=== PATIENT | female | born 1935 | race American Indian/Alaskan Native ===

== ENCOUNTER 2017-07-31 17:15 | Emergency (ER) | payer OTHER, MEDICARE ==
[~2017-07-31] VITALS: Ht 152.4 cm; Wt 81.7 kg
[~2017-07-31 17:15] MED LIST: ALLEGRA ALLERG180 MG PO; AMLODIPINE BESYL5 MG PO; ASPIRIN EC81 MG PO; COZAAR25 MG PO; FLOVENT DISKUS50 MCG INH; GLIPIZIDE XL10 MG PO; LIPITOR10 MG PO; LORATADINE10 MG PO; METFORMIN HCL500 MG PO; METOPROLOL SUCC25 MG PO; NITROGLYCERIN0.4 MG SL; ONGLYZA5 MG PO; ZETIA10 MG PO
[2017-07-31] MEDS ORDERED: NORCO 5-325 TA1 EACH PO (20:27)
== END 2017-07-31 20:52 | disposition home or self-care (01) ==
LOC: ED 17:15
DX: S20.211A Contusion of right front wall of thorax, initial encounter (principal); I10 Essential (primary) hypertension; E78.00 Pure hypercholesterolemia, unspecified; J45.909 Unspecified asthma, uncomplicated; E11.9 Type 2 diabetes mellitus without complications; Z87.891 Personal history of nicotine dependence; Z88.0 Allergy status to penicillin; Z88.1 Allergy status to other antibiotic agents; Z88.8 Allergy status to other drugs, medicaments and biological substances; Z79.899 Other long term (current) drug therapy; Z79.82 Long term (current) use of aspirin; Z79.84 Long term (current) use of oral hypoglycemic drugs; V43.52XA Car driver injured in collision with other type car in traffic accident, initial encounter
CPT/HCPCS: 71046; 99283

== ENCOUNTER 2019-02-27 14:11 | Emergency (ER) | payer MEDICARE, OTHER ==
[~2019-02-27] VITALS: Ht 152.4 cm; Wt 74.8 kg
[~2019-02-27 14:11] MED LIST changes: +NORCO 5-325 TA1 EACH PO
--- NOTE | 2019-02-28 12:39 | EKG ---
[facility] [address] [facility] [place], [place] [address] Signed Atrial fibrillation Left axis deviation Left ventricular hypertrophy with QRS widening Possible Lateral infarct , age undetermined Abnormal ECG No previous ECGs available Confirmed by CHER COPELAND MD ([id number]) on 02/28/2019 12:39:30 PM Electronically Signed By: CHER COPELAND MD 02/28/19 1239 PATIENT NAME: KIMBERLEE CARABALLO Electrocardiogram DATE OF : 39 PHYSICIAN: CHER COPELAND MD REPORT #: [id number] REPORT IS CONFIDENTIAL AND NOT TO BE RELEASED WITHOUT AUTHORIZATION
== END 2019-02-27 17:55 | disposition home or self-care (01) ==
LOC: ED 14:11 → EDBD 14:12 → ED 17:55
DX: R53.1 Weakness (principal); E11.9 Type 2 diabetes mellitus without complications; I25.2 Old myocardial infarction; Z87.891 Personal history of nicotine dependence; I10 Essential (primary) hypertension; Z95.5 Presence of coronary angioplasty implant and graft; Z88.0 Allergy status to penicillin; Z88.1 Allergy status to other antibiotic agents; Z88.8 Allergy status to other drugs, medicaments and biological substances; Z79.899 Other long term (current) drug therapy; Z79.84 Long term (current) use of oral hypoglycemic drugs; Z79.82 Long term (current) use of aspirin
CPT/HCPCS: 80053; 81001; 83690; 83735; 84484; 85025; 87088; 93005; 93010; 99285-25

== ENCOUNTER 2019-11-15 18:12 | Inpatient (IN) | payer MEDICARE, OTHER ==
[~2019-11-15] VITALS: Ht 152.4 cm; Wt 65.7 kg
--- OUTSIDE RECORDS SUMMARY | ~2019-11-15 | XMS | Clinical Summary ---
Demographics + + + | Address | [address] [place] [address] road | | | [place] [address] | + + + | Home Phone | | + + + | Preferred Language | Unknown | + + + | Marital Status | Single | + + + | Christianity Affiliation | Unknown | + + + | Race | Unknown | + + + | Ethnic Group | Unknown | + + + Author + + + | Author | [facility] (Historical as of | | | 01-31-19) | + + + | Organization | [facility] (Historical as of | | | 01-31-19) | + + + | Address | Unknown | + + + | Phone | Unavailable | + + + Support + + +---------+ + | Name | Relationship | Address | Phone | + + +---------+ + | Mitul Le | ECON | Unknown | | + + +---------+ + | Lopez Cueto | ECON | Unknown | | + + +---------+ + | Magdiel Cueto | ECON | Unknown | | + + +---------+ + Care Team Providers + +------+ + | Care Audio Visual Specialist Name | Role | Phone | + +------+ + | Eva An MD | PP | | + +------+ + Allergies + + + + + + | Active Allergy | Reactions | Severity | Noted | Comments | | | | | Date | | + + + + + + | Amoxicillin | Other (See Comments) | Medium | 09/25/19 | Pt states "I dont | | | | | 15 | know" | + + + + + + | Azithromycin | Other (See Comments) | Medium | 09/25/19 | Pt states "I dont | | | | | 15 | know" | + + + + + + | Clavulanic Acid | Other (See Comments) | Medium | 09/25/19 | Pt states "I dont | | | | | 15 | know" | + + + + + + | Clindamycin | Other (See Comments) | Medium | 09/25/19 | Pt states "I dont | | | | | 15 | know" | + + + + + + | Penicillins | Other (See Comments) | Medium | 09/25/19 | Pt states "I dont | | | | | 15 | know" | + + + + + + Current Medications + + +--------+---------+------+------+-------+ | Prescription | Sig. | Disp. | Refills | Star | End | Statu | | | | | | t | Date | s | | | | | | Date | | | + + +--------+---------+------+------+-------+ | metFORMIN | Take 500 mg by mouth | | | | | Activ | | (GLUCOPHAGE) 500 MG | 2 (two) times daily | | | | | e | | tablet | with meals. | | | | | | + + +--------+---------+------+------+-------+ | fluticasone | Inhale 1 puff into | | | | | Activ | | (FLOVENT DISKUS) 50 | the lungs 2 (two) | | | | | e | | MCG/BLIST diskus | times daily. | | | | | | | inhaler | | | | | | | + + +--------+---------+------+------+-------+ | saxagliptin | Take 5 mg by mouth | | | | | Activ | | (ONGLYZA) 5 MG | daily. | | | | | e | | tablet | | | | | | | + + +--------+---------+------+------+-------+ | glipiZIDE | Take 10 mg by mouth | | | | | Activ | | (GLUCOTROL) 10 MG 24 | daily. | | | | | e | | hr tablet | | | | | | | + + +--------+---------+------+------+-------+ | atorvastatin | Take 1 tablet by | 30 | 0 | 04/1 | | Activ | | (LIPITOR) 40 MG | mouth nightly. | tablet | | 7/20 | | e | | tablet | | | | 15 | | | + + +--------+---------+------+------+-------+ | clopidogrel | Take 1 tablet by | 30 | 0 | 04/1 | | Activ | | (PLAVIX) 75 MG | mouth daily. | tablet | | 7/20 | | e | | tablet | | | | 15 | | | + + +--------+---------+------+------+-------+ | furosemide (LASIX) | Take 1 tablet by | 30 | 0 | 04/1 | | Activ | | 40 MG tablet | mouth daily. | tablet | | 7/20 | | e | | | | | | 15 | | | + + +--------+---------+------+------+-------+ | metoprolol | Take 1 tablet by | 30 | 0 | 04/1 | | Activ | | (TOPROL-XL) 100 MG | mouth daily. | tablet | | 7/20 | | e | | 24 hr tablet | | | | 15 | | | + + +--------+---------+------+------+-------+ | nitroGLYCERIN | Place 1 tablet under | 90 | 0 | 04/1 | | Activ | | (NITROSTAT) 0.4 MG | the tongue every 5 | tablet | | 7/20 | | e | | SL tablet | (five) minutes as | | | 15 | | | | | needed for Chest | | | | | | | | pain. | | | | | | + + +--------+---------+------+------+-------+ | potassium chloride | Take 1 tablet by | 30 | 0 | 04/1 | | Activ | | (K-DUR,KLOR-CON) 20 | mouth daily. | tablet | | 7/20 | | e | | MEQ tablet | | | | 15 | | | + + +--------+---------+------+------+-------+ | warfarin | Take 1 tablet by | 30 | 0 | 04/1 | | Activ | | (COUMADIN) 1 MG | mouth daily. | tablet | | 7/20 | | e | | tablet | | | | 15 | | | + + +--------+---------+------+------+-------+ | losartan (COZAAR) | Take 1 tablet by | 90 | 3 | 04 | | Activ | | 100 MG tablet | mouth daily. | tablet | | 10/04 | | e | | | | | | 15 | | | + + +--------+---------+------+------+-------+ | aspirin 81 MG EC | Take 1 tablet by | 90 | 3 | 10/15 | | Activ | | tablet | mouth daily with | tablet | | 02/03 | | e | | | breakfast. | | | 15 | | | + + +--------+---------+------+------+-------+ Active Problems + + + | Problem | Noted Date | + + + | NSTEMI (non-ST elevated myocardial infarction) | 09/25/2014 | + + + | Severe Mitral regurgitation | 09/25/2014 | + + + | Pulmonary HTN | 09/25/2014 | + + + | New onset a-fib RVR | 09/24/2014 | + + + | CHF (congestive heart failure) | 09/24/2014 | + + + | DM (diabetes mellitus) 2 | 09/24/2014 | + + + | CAD (coronary artery disease) s/p 1 stent | 09/24/2014 | + + + | HTN (hypertension) | 09/24/2014 | + + + | Other and unspecified hyperlipidemia | 09/24/2014 | + + + | Obesity, unspecified | 09/24/2014 | + + + | SOB (shortness of breath) | 09/24/2014 | + + + | Legs swelling | 09/24/2014 | + + + | Elevated brain natriuretic peptide (BNP) level | 09/24/2014 | + + + Social History + +-------+ +--------+------+ | Tobacco Use | Types | Packs/Day | Years | Date | | | | | Used | | + +-------+ +--------+------+ | Never Smoker | | | | | + +-------+ +--------+------+ + +---+---+---+ | Smokeless Tobacco: | | | | | Never Used | | | | + +---+---+---+ + + +---------+ + | Alcohol Use | Drinks/We | oz/Week | Comments | | | ek | | | + + +---------+ + | No | | | | + + +---------+ + + + + | Sex Assigned at | Date Recorded | | | | + + + | Not on file | | + + + Last Filed Vital Signs + + + + | Vital Sign | Reading | Time Taken | + + + + | Blood Pressure | 110/60 | 12/21/2014 3:51 PM PDT | + + + + | Pulse | 66 | 12/21/2014 3:51 PM PDT | + + + + | Temperature | 36.7 C (98 F) | 10/01/2014 8:33 AM PDT | + + + + | Respiratory Rate | 20 | 12/21/2014 3:51 PM PDT | + + + + | Oxygen Saturation | 98% | 12/21/2014 3:51 PM PDT | + + + + | Inhaled Oxygen | - | - | | Concentration | | | + + + + | Weight | 78.9 kg (174 lb) | 12/21/2014 3:51 PM PDT | + + + + | Height | 154.9 cm (5' 1") | 12/21/2014 3:51 PM PDT | + + + + | Body Mass Index | 32.88 | 12/21/2014 3:51 PM PDT | + + + + Plan of Treatment + + + + + | Health Maintenance | Due Date | Last Done | Comments | + + + + + | Vaccine: | | | | | Dtap/Tdap/Td (1 - | 7 | | | | Tdap) | | | | + + + + + | Vaccine: Zoster (1 | | | | | of 2) | 8 | | | + + + + + | DEXA SCAN SCREENING | | | | | | 3 | | | + + + + + | Vaccine: | | | | | Pneumococcal 65+ | 3 | | | | Low/Medium Risk (1 | | | | | of 2 - PCV13) | | | | + + + + + | Vaccine: Influenza | | | | | (Season Ended) | 0 | | | + + + + + Results Not on filefrom Last 3 Months Insurance + +--------+ +------+-------+ + | Payer | Benefi | Subscriber | Type | Phone | Address | | | t Plan | ID | | | | | | / | | | | | | | Group | | | | | + +--------+ +------+-------+ + | MEDICARE | MEDICA | [id number] | | | [address] | | | RE | | | | [place] [phone] | | | IP-OP | | | | | + +--------+ +------+-------+ + | [facility] | YELLOW | [id number] | | | | | PLANS | [place] | | | | | + +--------+ +------+-------+ + + +--------+ +--------+ + + | Guarantor Name | Accoun | Relation to | Date | Phone | Billing Address | | | t Type | Patient | of | | | | | | | | | | + +--------+ +--------+ + + | KIMBERLEE PEGUERO | Person | Self [birth year] Home: | [id number] [place] [address] road | | | al/Fam | | 1936 | [phone] | [place] [address] | | | [place] | | | [phone] | | + +--------+ +--------+ + +
--- OUTSIDE RECORDS SUMMARY | ~2019-11-15 | XMS | Clinical Summary ---
Demographics + + + | Address | [address] [place] [address] road | | | [place] [address] | + + + | Home Phone | | + + + | Preferred Language | Unknown | + + + | Marital Status | Single | + + + | Episcopalian Affiliation | Unknown | + + + | Race | Unknown | + + + | Ethnic Group | Unknown | + + + Author + + + | Author | [facility] (Historical as of | | | 01-31-19) | + + + | Organization | [facility] (Historical as of | | | 01-31-19) [...] Team Providers + +------+ + | Care Egg Sorter Name | Role | Phone | + [...] +------+-------+ + | MEDICARE | MEDICA | [id number] | | | [address] | | | RE | | | | [place] [address] | | | IP-OP | | | | | + +--------+ +------+-------+ + | [facility] [facility] | YELLOW | [id number] | | | | | PLANS | [...] | Self | [birth year] | Home: | [id number] [place] [address] road | | | al/Fam | | 1936 | [phone] | [place] [address] | | | [place] | | | [phone] | | + +--------+ +--------+ + +
--- OUTSIDE RECORDS SUMMARY | ~2019-11-15 | XMS | Clinical Summary ---
Demographics + + + | Address | [address] | | | [place] [address] | + + + | Home Phone | | + + + | Preferred Language | Unknown | + + + | Marital Status | | + + + | Restorationist Affiliation | Unknown | + + + | Race | Unknown | + + + | Ethnic Group | Unknown | + + + Author + + + | Author | [facility] | | | and [place] | + + + | Organization | [facility] | | | and [place] | + + + | Address | Unknown | + + + | Phone | Unavailable | + + + Support + + +---------+ + | Name | Relationship | Address | Phone | + + +---------+ + | Lopez Cueto | ECON | Unknown | | + + +---------+ + Care Team Providers + +------+ + | Care Doctor Of Naprapathy Name | Role | Phone | + +------+ + | Eva An MD | PCP | | + +------+ + Allergies + + + + + + | Active Allergy | Reactions | Severity | Noted | Comments | | | | | Date | | + + + + + + | Amoxicillin | Itching | | 02/25/20 | | | | | | 15 | | + + + + + + | Azithromycin | Itching | | 02/25/20 | | | | | | 15 | | + + + + + + | Clavulanic Acid | Other (See Comments) | | 02/25/20 | Unknown | | | | | 15 | | + + + + + + | Clindamycin | Itching | | 02/25/20 | | | | | | 15 | | + + + + + + | Penicillins | Itching | | 02/25/20 | | | | | | 15 | | + + + + + + Medications + + + +---------+------+------+-------+ | Medication | Sig | Dispensed | Refills | Star | End | Statu | | | | | | t | Date | s | | | | | | Date | | | + + + +---------+------+------+-------+ | warfarin | As directed | | 0 | 06/0 | | Activ | | (COUMADIN) 2.5 mg | | | | 5/20 | | e | | tablet | | | | 15 | | | + + + +---------+------+------+-------+ | aspirin 81 MG EC | Take 1 tablet by | | 0 | 05/1 | | Activ | | tablet | mouth Daily. | | | 8/20 | | e | | | | | | 15 | | | + + + +---------+------+------+-------+ | saxagliptin | Take 1 tablet by | | 0 | | | Activ | | (ONGLYZA) 5 mg TABS | mouth Daily. | | | | | e | | tablet | | | | | | | + + + +---------+------+------+-------+ | metFORMIN | Take 2 tablets by | | 0 | | | Activ | | (GLUCOPHAGE) 500 mg | mouth Daily. | | | | | e | | tablet | | | | | | | + + + +---------+------+------+-------+ | glipiZIDE | Take 1 tablet by | | 0 | | | Activ | | (GLUCOTROL XL) 10 MG | mouth 2 times daily. | | | | | e | | 24 hr tablet | | | | | | | + + + +---------+------+------+-------+ | fluticasone | 1 spray by Nasal | | 0 | | | Activ | | (FLONASE) 50 | route as needed for | | | | | e | | mcg/nasal spray | Allergies. | | | | | | + + + +---------+------+------+-------+ | Calcium | Take 1 tablet by | | 0 | | | Activ | | Carb-Cholecalciferol | mouth 2 times daily. | | | | | e | | (CALCIUM 600 + D | | | | | | | | PO) | | | | | | | + + + +---------+------+------+-------+ | fluticasone | Inhale 1 puff into | | 0 | | | Activ | | (FLOVENT HFA) 44 | the lungs as needed. | | | | | e | | mcg/puff inhaler | | | | | | | + + + +---------+------+------+-------+ | | Take 1 tablet by | | 0 | | | Activ | | Glucosamine-Chondroi | mouth Daily. | | | | | e | | t-Vit C-Mn | | | | | | | | (GLUCOSAMINE CHONDR | | | | | | | | 500 COMPLEX PO) | | | | | | | + + + +---------+------+------+-------+ | glucose 4 G | Take 4 g by mouth as | | 0 | | | Activ | | chewable tablet | needed for Low | | | | | e | | | blood sugar. | | | | | | + + + +---------+------+------+-------+ Active Problems + + + | Problem | Noted Date | + + + | Mitral regurgitation | 02/24/2015 | + + + + + | Last Assessment & Plan: Here to discuss mitraclip therapy for | | severe MR. She is currently well compensated with no evidence | | of CHF and has good exercise tolerance. I do not think that she | | would meet criteria for mitraclip given her relatively healthy | | status. I explained the options of open repair, vs robotic | | repair, vs CABG + valve repair. Before making that decision it | | needs to be determined if she would benefit from | | revascularization of her occluded LAD. To that end I would | | recommend a viability study. If there is no viability in the LAD | | territory then surgical consultation to decide if she is robotic | | candidate. Recommend:She should undergo viability study, then | | surgical consultationCurrent medical management is appropriate | + + + + + | Coronary artery disease involving [place] coronary artery without | 02/24/2015 | | angina pectoris | | + + + + + | Overview: 09/2014: NSTEMI. Occluded LAD (appeared chronic), | | high grade Cx stented with 3.0 x 38mm Promus (drug eluting) stent | | Last Assessment & Plan: Feels much better since Cx stented; | | able to walk the hallways at school without dyspnea for the first | | time that she can recall. No chest discomfort.It remains to be | | seen if there is potential benefit of revascularization of her | | LAD. As stated above I recommend a viability study | + + Family History + + +------+ + | Medical History | Relation | Name | Comments | + + +------+ + | Stroke | Father | | D 80 | + + +------+ + | Other (see comment) | Mother | | D 80-"Old age" | + + +------+ + | Other (see comment) | | | No siblings | + + +------+ + + +------+ + + | Relation | Name | Status | Comments | + +------+ + + | Father | | | | | | | (Age | | | | | 80's) | | + +------+ + + | Mother | | | | | | | (Age | | | | | 80) | | + +------+ + + Social History + + + [...] on file | | + + + + + + + | Job Start Date | Occupation | Industry | + + + + | Not on file | Not on file | Not on file | + + + + + + + + | Travel History | Travel Start | Travel End | + + + + + + | No recent travel history available. | + + Last Filed Vital Signs + + + + + | Vital Sign | Reading | Time Taken | Comments | + + + + + | Blood Pressure | 124/76 | 02/24/2015 9:36 AM | | | | | PDT | | + + + + + | Pulse | 67 | 02/24/2015 9:36 AM | reg | | | | PDT | | + + + + + | Temperature | - | - | | + + + + + | Respiratory Rate | - | - | | + + + + + | Oxygen Saturation | - | - | | + + + + + | Inhaled Oxygen | - | - | | | Concentration | | | | + + + + + | Weight | 78.5 kg (173 lb) | 02/24/2015 9:36 AM | | | | | PDT | | + + + + + | Height | 154.9 cm (5' 1") | 02/24/2015 9:36 AM | | | | | PDT | | + + + + + | Body Mass Index | 32.69 | 02/24/2015 9:36 AM | | | | | PDT | | + + + + + Plan of Treatment + + + + + | Health Maintenance | Due Date | Last Done | Comments | + + + + + | Vaccine: | | | | | Dtap/Tdap/Td (1 - | 9 | | | | Tdap) | | | | + + + + + | Vaccine: Zoster (1 | | | | | of 2) | 8 | | | + + + + + | Vaccine: | | | | | Pneumococcal 65+ (1 | 3 | | | | of 2 - PCV13) | | | | + + + + + | Vaccine: Influenza | | | | | (Season Ended) | 0 | | | + + + + + Results Not on filefrom Last 3 Months Insurance + +--------+ +--------+ +---------+--------+ | Payer | Benefi | Subscriber | Effect | Phone | Address | Type | | | t Plan | ID | [place] | | | | | | / | | Dates | | | | | | Group | | | | | | + +--------+ +--------+ +---------+--------+ | MEDICARE | MEDICA | [id number] | 08/16/19 | [phone] | | Medica | | | RE | | 04-Pre | 5 | | re | | | PART A | | sent | | | | | | AND B | | | | | | + +--------+ +--------+ +---------+--------+ | [facility] | [employer]HS | [id number] | 07/26/19 | | | Indemn | | SERVICE | [place]LLOW | | 15-Pre | | | ity | | | [place] | | sent | | | | + +--------+ +--------+ +---------+--------+ + +--------+ +--------+ + + | Guarantor Name | Accoun | Relation to | Date | Phone | Billing Address | | | t Type | Patient | of | | | | | | | | | | + +--------+ +--------+ + + | Yumiko Peguero | Person | Self [birth year] | | [address] | | | al/Fam | | 1936 | [phone] | [place] [address] | | | [place] | | | 4 (Home) | | + +--------+ +--------+ + + Advance Directives + + + + + | Type | Date Recorded | Patient | Explanation | | | | Cell Geneticist | | + + + + + | Power of | | | | | Manager Route | | | | + + + + + | Advance | | | | | Directive | | | | + + + + +
--- OUTSIDE RECORDS SUMMARY | ~2019-11-15 | XMS | Encounter Summary ---
Demographics + + + | Address | [address] | | | [place] [address] | + + + | Home Phone | | + + + | Preferred Language | Unknown | + + + | Marital Status | | + + + | Christianity Affiliation | Unknown | + + + | Race | Unknown | + + + | Ethnic Group | Unknown | + + + Author + + + | Author | [facility] | | | and [place] | + + + | Organization | [facility] | | | and [place] [...] Team Providers + +------+ + | Care Bellows Assembler Name | Role | Phone | + +------+ + | Eva An MD | PCP | | + +------+ + Encounter Details +--------+ + + + + | Date | Type | Department | Care Team | Description | +--------+ + + + + | 10/18/ | Orders Only | [facility] | Conversion | | | 2015 | | [facility] [place] | Transaction, | | | | | [address] | Provider Unknown | | | | | [place] | [phone] | | | | | [phone] | | | | | | [phone] | | | +--------+ + + + + Social History + +-------+ +--------+------+ | Tobacco Use | Types | Packs/Day | Years | Date | | | | | Used | | + +-------+ +--------+------+ | Never Assessed | | | | | + +-------+ +--------+------+ + + + | Sex Assigned at [...] recent travel history available. | + + documented as of this encounter Plan of Treatment Not on filedocumented as of this encounter Procedures + +--------+ + + + | Procedure Name | Priori | Date/Time | Associated Diagnosis | Comments | | | ty | | | | + +--------+ + + + | PROTIME INR | Routin | 10/18/2014 | | Results for this | | | e | 10:03 AM | | procedure are in the | | | | PDT | | results section. | + +--------+ + + + | PROTIME INR | Routin | 10/11/2014 | | Results for this | | | e | 9:17 AM | | procedure are in the | | | | PDT | | results section. | + +--------+ + + + | PROTIME INR | Routin | 10/08/2014 | | Results for this | | | e | 8:25 AM | | procedure are in the | | | | PDT | | results section. | + +--------+ + + + | PROTIME INR | Routin | 10/06/2014 | | Results for this | | | e | 2:16 PM | | procedure are in the | | | | PDT | | results section. | + +--------+ + + + documented in this encounter Results Protime INR (10/18/2014 10:03 AM PDT) + +-------+ + + + | Component | Value | Ref Range | Performed | Pathologist | | | | | At | Signature | + +-------+ + + + | Prothrombin | | seconds | EXTERNAL | | | Time | | | LAB | | + +-------+ + + + | INR | 2.0 | 2.0 - 3.0 | EXTERNAL | | | | | | LAB | | + +-------+ + + + + + | Specimen | + + | Blood specimen | | (specimen) | + + + +---------+ + + | Performing | Address | City/State/Zipcode | Phone Number | | Organization | | | | + +---------+ + + | EXTERNAL LAB | | | | + +---------+ + + Protime INR (10/11/2014 9:17 AM PDT) + +---------+ + + + | Component | Value | Ref Range | Performed | Pathologist | | | | | At | Signature | + +---------+ + + + | Prothrombin | | seconds | EXTERNAL | | | Time | | | LAB | | + +---------+ + + + | INR | 3.9 (A) | 2.0 - 3.0 | EXTERNAL | | | | | | LAB | | + +---------+ + + + + + | Specimen | + + | Blood specimen | | (specimen) | + + + +---------+ + + | Performing | Address | City/State/Zipcode | Phone Number | | Organization | | | | + +---------+ + + | EXTERNAL LAB | | | | + +---------+ + + Protime INR (10/08/2014 8:25 AM PDT) + +---------+ + + + | Component | Value | Ref Range | Performed | Pathologist | | | | | At | Signature | + +---------+ + + + | Prothrombin | | seconds | EXTERNAL | | | Time | | | LAB | | + +---------+ + + + | INR | 1.8 (A) | 2.0 - 3.0 | EXTERNAL | | | | | | LAB | | + +---------+ + + + + + | Specimen | + + | Blood specimen | | (specimen) | + + + +---------+ + + | Performing | Address | City/State/Zipcode | Phone Number | | Organization | | | | + +---------+ + + | EXTERNAL LAB | | | | + +---------+ + + Protime INR (10/06/2014 2:16 PM PDT) + +---------+ + + + | Component | Value | Ref Range | Performed | Pathologist | | | | | At | Signature | + +---------+ + + + | Prothrombin | | seconds | EXTERNAL | | | Time | | | LAB | | + +---------+ + + + | INR | 1.3 (A) | 2.0 - 3.0 | EXTERNAL | | | | | | LAB | | + +---------+ + + + + + | Specimen | + + | Blood specimen | | (specimen) | + + + +---------+ + + | Performing | Address | City/State/Zipcode | Phone Number | | Organization | | | | + +---------+ + + | EXTERNAL LAB | | | | + +---------+ + + documented in this encounter Visit Diagnoses Not on filedocumented in this encounter"
--- OUTSIDE RECORDS SUMMARY | ~2019-11-15 | XMS | Encounter Summary ---
Demographics + + + | Address | [address] | | | [place] [address] | + + + | Home Phone | | + + + | Preferred Language | Unknown | + + + | Marital Status | | + + + | Oriental Orthodox Affiliation | Unknown | + + + | Race | Unknown | + + + | Ethnic Group | Unknown | + + + Author + + + | Author | [facility] | | | and [place] | + + + | Organization | [facility] | | | and [place] | [...] Team Providers + +------+ + | Care Industrial Design Engineer Name | Role | Phone | + +------+ + PCP | Unavailable | + +------+ + Encounter Details +--------+ + + + + | Date | Type | Department | Care Team | Description | +--------+ + + + + | 02/04/ | Hospital | [facility] | Lena Kern | | | 2011 | Encounter | [facility] | MD [address] | | | | | LABORATORY [address] | | [address] [place] | [place] [address] | | | | | [address] | [phone] | | | | | [phone] | | | +--------+ + + + [...] | + +--------+ + + + | XR CHEST 2 VIEWS | | 02/05/2012 | | Results for this | | | | 3:34 PM | | procedure are in the | | | | PDT | | results section. | + +--------+ + + + | CBC WITH | Routin | 02/05/2012 | | Results for this | | DIFFERENTIAL | e | 2:20 PM | | procedure are in the | | | | PDT | | results section. | + +--------+ + + + | BASIC METABOLIC | Routin | 02/05/2012 | | Results for this | | PANEL | e | 2:20 PM | | procedure are in the | | | | PDT | | results section. | + +--------+ + + + documented in this encounter Results XR Chest 2 VW (02/05/2012 3:34 PM PDT) + + | Specimen | + + | | + + + + + | Narrative | Performed At | + + + | Exam Performed Location: [facility] [place] CHEST | MISCELANIOUS | | TWO VIEWS CLINICAL INFORMATION: Pre-operative for vaginal laser | LAB | | procedure. COMPARISON: None. FINDINGS: The heart size and | | | pulmonary vasculature are within normal limits. No focal | | | consolidation. No pleural effusion or pneumothorax. Visualized | | | bones are unremarkable. IMPRESSION: Negative chest radiographs. | | | S: SQ ([id number]) Signed by: GARCIA HEART MD | | + + + + + | Procedure Note | + + | Pineda Gomez - 04/09/2013 7:17 AM PDT Exam Performed Location: [facility] | | at [facility] TWO VIEWSCLINICAL INFORMATION:Pre-operative for vaginal laser | | procedure.COMPARISON:None.FINDINGS:The heart size and pulmonary vasculature are within | | normal limits.No focal consolidation. No pleural effusion or pneumothorax.Visualized | | bones are unremarkable.IMPRESSION:Negative chest radiographs.S: SQ ([id number]) Signed by: | | GARCIA HEART MD | | | |COMPARISON: | |None. | | | |FINDINGS: | |The heart size and pulmonary vasculature are within normal limits. | |No focal consolidation. No pleural effusion or pneumothorax. | |Visualized bones are unremarkable. | | | |IMPRESSION: | |Negative chest radiographs. | | | | | |S: SQ ([id number]) Signed by: GARCIA HEART MD | + + + +---------+ + + | Performing | Address | City/State/Zipcode | Phone Number | | Organization | | | | + +---------+ + + | [facility] | | | [phone] | + +---------+ + + | [facility] | | | [phone] | + +---------+ + + Basic Metabolic Panel (02/05/2012 2:20 PM PDT) + + + + + + | Component | Value | Ref Range | Performed | Pathologist | | | | | At | Signature | + + + + + + | Na | 140 | 135 - 145 | [facility] | | | | | mmol/L | [facility] | | | | | [facility] | | | | | | MEDICAL | | | | | | CENTER | | | | | | LABORATORY | | + + + + + + | K | 3.5 | 3.5 - 5.0 | [facility] | | | | | mmol/L | [facility] | | | | | | [facility] | | | | | | MEDICAL | | | | | | CENTER | | | | | | LABORATORY | | + + + + + + | Cl | 103 | 99 - 109 mmol/L | [facility] | | | | | | [facility] | | | | | | [facility] | | | | | | MED[facility] | | | | | | CENTER | | | | | | LABORATORY | | + + + + + + | CO2 | 30 | 21 - 28 mmol/L | [facility] | | | | | | [facility] | | | | | [facility] | | | | | | [facility]ICAL | | | | | | CENTER | | | | | | LABORATORY | | + + + + + + | Glucose | 105 (H)Comment: Ethiopian | 65 - 99 mg/dL | [facility] | | | | Diabetes Association | | [facility] | | | | diagnostic categories | | HEART | | | | for non adults: | | MEDICAL | | | | Impaired fasting | | CENTER | | | | glucose 100 to 125 | | LABORATORY | | | | mg/dL. A fasting | | | | | | glucose result of 126 | | | | | | mg/dL or greater | | | | | | indicates diabetes if | | | | | | the abnormality is | | | | | | confirmed on a | | | | | | subsequent day. A | | | | | | random glucose result of | | | | | | greater than 200 mg/dL | | | | | | indicates diabetes if | | | | | | the abnormality is | | | | | | confirmed on a | | | | | | subsequent day. | | | | + + + + + + | BUN | 9 | 8 - 25 mg/dL | [facility] | | | | | | [facility] | | | | | | [facility] | | | | | | MEDICAL | | | | | | CENTER | | | | | | LABORATORY | | + + + + + + | Creatinine | 0.68Comment: IDMS | 0.50 - 1.00 | [facility] | | | | traceable creatinine | mg/dL | [facility] | | | | | | HE[facility] | | | | | | MEDICAL | | | | | | CENTER | | | | | | LABORATORY | | + + + + + + | Calcium | 9.2 | 8.5 - 10.2 | [facility] | | | | | mg/dL | [facility] | | | | | | HE[facility] | | | | | | MEDICAL | | | | | | CENTER | | | | | | LABORATORY | | + + + + + + | Anion Gap | 7 | 5 - 16 mmol/L | [facility] | | | | | | [facility] | | | | | | [facility] | | | | | | MEDICAL | | | | | | CENTER | | | | | | LABORATORY | | + + + + + + | Estimated | >60Comment: GFR <60: | >60 | [facility] | | | GFR | Chronic kidney disease, | ml/min/1.73m2 | [facility] | | | | if found over a 3 month | | HEART | | | | period.GFR <15: Kidney | | MEDICAL | | | | failure.For | | CENTER | | | | Americans, multiply the | | LABORATORY | | | | calculated GFR by 1.210 | | | | + + + + + + + + | Specimen | + + | | + + + + + + + | Performing | Address | City/State/Zipcode | Phone Number | | Organization | | | | + + + + + | [facility] | [address] | [place] [address] | | | [facility] | | | | | LABORATORY | | | | + + + + + | [facility] | | | | | [facility] | | | | | LABORATORY | | | | + + + + + CBC with Differential (02/05/2012 2:20 PM PDT) + + + + + + | Component | Value | Ref Range | Performed | Pathologist | | | | | At | Signature | + + + + + + | WBC | 7.9 | 3.8 - 11.0 K/uL | [facility] | | | | | | [facility] | | | | | [facility] | | | | | | MEDICAL | | | | | | CENTER | | | | | | LABORATORY | | + + + + + + | RBC | 4.56 | 3.70 - 5.10 | [facility] | | | | | M/uL | [facility] | | | | | | HE[facility] | | | | | | MEDICAL | | | | | | CENTER | | | | | | LABORATORY | | + + + + + + | Hemoglobin | 13.7 | 11.3 - 15.5 | [facility] | | | | | g/dL | [facility] | | | | | | [facility] | | | | | | MEDICAL | | | | | | CENTER | | | | | | LABORATORY | | + + + + + + | Hematocrit | 41.0 | 34.0 - 46.0 % | [facility] | | | | | | [facility] | | | | | | [facility] | | | | | | [facility] | | | | | | CENTER | | | | | | LABORATORY | | + + + + + + | MCV | 89.8 | 80.0 - 100.0 fL | [facility] | | | | | | [facility] | | | | | | [facility] | | | | | | MEDICAL | | | | | | CENTER | | | | | | LABORATORY | | + + + + + + | MCH | 30.0 | 27.0 - 34.0 pg | [facility] | | | | | | [facility] | | | | | | [facility] | | | | | | MEDICAL | | | | | | CENTER | | | | | | LABORATORY | | + + + + + + | MCHC | 33.4 | 32.0 - 35.5 | [facility] | | | | | g/dL | [facility] | | | | | | HE[facility] | | | | | | MEDICAL | | | | | | CENTER | | | | | | LABORATORY | | + + + + + + | RDW-CV | 14.7 | 11.0 - 15.5 % | [facility] | | | | | | [facility] | | | | | | [facility] | | | | | | MEDICAL | | | | | | CENTER | | | | | | LABORATORY | | + + + + + + | Platelet | 257 | 150 - 400 K/uL | [facility] | | | Count | | | [facility] | | | | | | HE[facility] | | | | | | MEDICAL | | | | | | CENTER | | | | | | LABORATORY | | + + + + + + | Differentia | Automated | | [facility] | | | l Type | | | [facility] | | | | | | [facility] | | | | | | MEDICAL | | | | | | CENTER | | | | | | LABORATORY | | + + + + + + | % | 76.0 (H) | 40.0 - 75.0 % | [facility] | | | Neutrophils | | | [facility] | | | | | | HE[facility] | | | | | | MEDICAL | | | | | | CENTER | | | | | | LABORATORY | | + + + + + + | % | 14.9 (L) | 15.0 - 48.0 % | [facility] | | | Lymphocytes | | | [facility] | | | | | | [facility] | | | | | | MEDICAL | | | | | | CENTER | | | | | | LABORATORY | | + + + + + + | % Monocytes | 6.0 | 0.0 - 12.0 % | [facility] | | | | | | [facility] | | | | | | [facility] | | | | | | MEDICAL | | | | | | CENTER | | | | | | LABORATORY | | + + + + + + | % | 2.7 | 0.0 - 7.0 % | [facility] | | | Eosinophils | | | [facility] | | | | | | HE[facility] | | | | | | MEDICAL | | | | | | CENTER | | | | | | LABORATORY | | + + + + + + | % Basophils | 0.4 | 0.0 - 2.0 % | [facility] | | | | | | [facility] | | | | | | [facility] | | | | | | MEDICAL | | | | | | CENTER | | | | | | LABORATORY | | + + + + + + | Absolute | 5.97 | 1.90 - 7.40 | [facility] | | | Neutrophils | | K/uL | [facility] | | | | | | HE[facility] | | | | | | MEDICAL | | | | | | CENTER | | | | | | LABORATORY | | + + + + + + | Absolute | 1.17 | 1.00 - 3.90 | [facility] | | | Lymphocytes | | K/uL | [facility] | | | | | | HEART | | | | | | MEDICAL | | | | | | CENTER | | | | | | LABORATORY | | + + + + + + | Absolute | 0.47 | 0.00 - 0.80 | [facility] | | | Monocytes | | K/uL | [facility] | | | | | | HEART | | | | | | MEDICAL | | | | | | CENTER | | | | | | LABORATORY | | + + + + + + | Absolute | 0.21 | 0.00 - 0.50 | [facility] | | | Eosinophils | | K/uL | [facility] | | | | | | HE[facility] | | | | | | MEDICAL | | | | | | CENTER | | | | | | LABORATORY | | + + + + + + | Absolute | 0.03 | 0.00 - 0.10 | [facility] | | | Basophils | | K/uL | [facility] | | | | | | HE[facility] | | | | | | MEDICAL | | | | | | CENTER | | | | | | LABORATORY | | + + + + + + + + | Specimen | + + | | + + + + + + + | Performing | Address | City/State/Zipcode | Phone Number | | Organization | | | | + + + + + | [facility] | [address] | [place] [address] | | | [facility] | | | | | LABORATORY | | | | + + + + + | [facility] | | | | | [facility] | | | | | LABORATORY | | | | + + + + + documented in this encounter Visit Diagnoses Not on filedocumented in this encounter"
--- OUTSIDE RECORDS SUMMARY | ~2019-11-15 | XMS | Encounter Summary ---
Demographics + + + | Address | [address] | | | [place] [address] | + + + | Home Phone | | + + + | Preferred Language | Unknown | + + + | Marital Status | | + + + | Voodoo Affiliation | Unknown | + + + | Race | Unknown | + + + | Ethnic Group | Unknown | + + + Author + + + | Author | [facility] | | | and [place] | + + + | Organization | [facility] | | | and [place] [...] Team Providers + +------+ + | Care Occupational Medicine Specialist Name | Role | Phone | + +------+ + | Eva An MD | PCP | | + +------+ + Encounter Details +--------+ + + + + | Date | Type | Department | Care Team | Description | +--------+ + + + + | 11/09/ | Orders Only | [facility] | Conversion | | | 2014 | | CARDIOLOGY [place] | Transaction, | | | | | [address] | Provider Unknown | | | | | [place] | [phone] | | | | | [address] | | | | | | [phone] | | | +--------+ + + + [...] + + documented as of this encounter Progress Notes Conversion Transaction, Provider Unknown - 11/10/2014 4:09 PM PDTFormatting of this note m ight be different from the original. Telephone Encounter by Elisa Del Castillo RN at 11/10/14 7071 Author: Elisa Del Castillo RN Service: (none) Author Type: Registered Nurse Filed: 11/10/14 9569 Encounter Date: 11/10/2014 Status: Signed Food Technician: Elisa Del Castillo RN (Registered Nurse) Called patient and verified that Dr. Adolfo Guillory is managing her PT/INR results and dosage changes. Most recent INR is 1.5 and patient reports that Dr. Guillory has increased her do se to 2.5 mg daily. Elisa Del Castillo RN docume nted in this encounter Plan of Treatment Not on filedocumented as of this encounter Procedures + +--------+ + + + | Procedure Name | Priori | Date/Time | Associated Diagnosis | Comments | | | ty | | | | + +--------+ + + + | PROTIME INR | Routin | 11/09/2014 | | Results for this | | | e | 11:28 AM | | procedure are in the | | | | PDT | | results section. | + +--------+ + + + documented in this encounter Results Protime INR (11/09/2014 11:28 AM PDT) + +---------+ + + + | Component | Value | Ref Range | Performed | Pathologist | | | | | At | Signature | + +---------+ + + + | Prothrombin | | seconds | EXTERNAL | | | Time | | | LAB | | + +---------+ + + + | INR | 1.5 (A) | 2.0 - 3.0 | EXTERNAL [...]
--- OUTSIDE RECORDS SUMMARY | ~2019-11-15 | XMS | Encounter Summary ---
Demographics + + + | Address | [address] | | | [place] [address] | + + + | Home Phone | | + + + | Preferred Language | Unknown | + + + | Marital Status | | + + + | Protestant Affiliation | Unknown | + + + | Race | Unknown | + + + | Ethnic Group | Unknown | + + + Author + + + | Author | [facility] | | | and [place] | + + + | Organization | [facility] | [...] Team Providers + +------+ + | Care Audit Tech Name | Role | Phone | + +------+ + PCP | Unavailable | + +------+ + Encounter Details +--------+ + + + + | Date | Type | Department | Care Team | Description | +--------+ + + + + | 10/28/ | Hospital | [facility] | | | | 2011 | Encounter | MED CTR XRAY [address] | | | | | | [address] | | | | | | [place] [address] | | | | | | [phone] | | | +--------+ + + + [...] | + +--------+ + + + | US ABDOMEN LIMITED | | 10/29/2011 | | Results for this | | | | 8:28 AM | | procedure are in the | | | | PDT | | results section. | + +--------+ + + + documented in this encounter Results US Abdomen Limited (10/29/2011 8:28 AM PDT) + + | Specimen | + + | | + + + + + | Narrative | Performed At | + + + | [facility] | [facility] | | [address] [facility] | [facility] | | ULTRASOUND OF THE GALLBLADDER: | DIAG IMG | | 10/29/2011 CLINICAL HISTORY: ABDOMINAL PAIN. RULE OUT | | | GALLSTONES. COMPARISON: None. FINDINGS: Exam is | | | limited by patient body habitus. After extensive search a distinct | | | identifiable g allbladder cannot be found. No definite shadowing | | | that would suggest choleliths. There are areas of shadowing in the | | | gallbladder fossa, however this appears to be dirty shadowing | | | suggesting gas within the regional gastrointestinal structures. | | | Currently the sonographic Perez's is reportedly negative . No | | | intrahepatic duct dilatation. The common bile duct measures 4.5 mm. | | | The liver is mildly increased in echogenicity relative to the | | | kidney suggesting fatty infiltration. It is otherwise | | | unremarkable. The right kidney as visualized is unremarkable. | | | There is no hydroneph rosis. It measures 11.4 cm longitudinally. | | | Pancreas as visualized is unremarkable. Flow is demonstrated | | | in the sampled portions of the inferior vena cava, hepatic veins, | | | portal veins, and the splenic vein. IMPRESSION: 1. | | | LIMITED EXAM. THE GALLBLADDER COULD NOT BE IDENTIFIED. THIS MAY | | | BE RELATED IT BEING ABSENT. IT IS POSSIBLE THAT IT COULD NOT BE | | | RECOGNIZED SECONDARY TO BE DISTENDED WITH CHOLELITHS, ALTHOUGH THE | | | TYPICAL SONOGRAPHIC SIGNATURE SIGN OF THAT WAS NOT DEMONSTRATED ON | | | THIS EXAM. 2. INCREASED ECHOGENICITY OF THE LIVER SUGGESTING | | | FATTY INFILTRATION. Dictated Date/Time: 10/29/2011 13:45 | | | Transcribed Date/Time: 10/29/2011 13:53 Quality Assurance Supervisor Final: ANDREW | | | <Electronically Signed by Ever Can MD> 10/29/119 | | + + + + + | Procedure Note | + + | Jason, Pineda Conversion - 07/24/2013 5:19 PM [facility] | | Diagnostic Imaging Department [address] [facility] [place] | | ULTRASOUND OF THE GALLBLADDER: 10/29/2011 CLINICAL | | HISTORY: ABDOMINAL PAIN. RULE OUT GALLSTONES. COMPARISON: None. FINDINGS: Exam is | | limited by patient body habitus. After extensive search a distinct identifiable | | gallbladder cannot be found. No definite shadowing that would suggest choleliths. | | There are areas of shadowing in the gallbladder fossa, however this appears to be dirty | | shadowing suggesting gas within the regional gastrointestinal structures. Currently the | | sonographic Perez's is reportedly negative. No intrahepatic duct dilatation. The | | common bile duct measures 4.5 mm. The liver is mildly increased in echogenicity | | relative to the kidney suggesting fatty infiltration. It is otherwise unremarkable. | | The right kidney as visualized is unremarkable. There is no hydronephrosis. It | | measures 11.4 cm longitudinally. Pancreas as visualized is unremarkable. Flow is | | demonstrated in the sampled portions of the inferior vena cava, hepatic veins, portal | | veins, and the splenic vein. IMPRESSION: 1. LIMITED EXAM. THE GALLBLADDER COULD NOT | | BE IDENTIFIED. THIS MAY BE RELATED IT BEING ABSENT. IT IS POSSIBLE THAT IT COULD NOT | | BE RECOGNIZED SECONDARY TO BE DISTENDED WITH CHOLELITHS, ALTHOUGH THE TYPICAL | | SONOGRAPHIC SIGNATURE SIGN OF THAT WAS NOT DEMONSTRATED ON THIS EXAM. 2. INCREASED | | ECHOGENICITY OF THE LIVER SUGGESTING FATTY INFILTRATION. Dictated Date/Time: 10/29/2011 | | 13:45Transcribed Date/Time: 10/29/2011 13:53Transcriptionist: ANDREW<Electronically | | Signed by Ever Can MD> 10/29/11 6912 | | | |Pancreas as visualized is unremarkable. | | | |Flow is demonstrated in the sampled portions of the inferior vena cava, hepatic veins, port al veins, | |and the splenic vein. | | | |IMPRESSION: | |1. LIMITED EXAM. THE GALLBLADDER COULD NOT BE IDENTIFIED. THIS MAY BE RELATED IT BEING A BSENT. IT | | IS POSSIBLE THAT IT COULD NOT BE RECOGNIZED SECONDARY TO BE DISTENDED WITH CHOLELITHS, ALT SNOW THE | |TYPICAL SONOGRAPHIC SIGNATURE SIGN OF THAT WAS NOT DEMONSTRATED ON THIS EXAM. | | | |2. INCREASED ECHOGENICITY OF THE LIVER SUGGESTING FATTY INFILTRATION. | | | |Dictated Date/Time: 10/29/2011 13:45 | |Transcribed Date/Time: 10/29/2011 13:53 | |Quality Assurance Supervisor Final: ANDREW | |<Electronically Signed by Ever Can MD> 10/29/11 2109 | + + + +---------+ + + | Performing | Address | City/State/Zipcode | Phone Number | | Organization | | | | + +---------+ + + | [place] | | | | | [facility] | | | | + +---------+ + + documented in this encounter Visit Diagnoses Not on filedocumented in this encounter"
--- OUTSIDE RECORDS SUMMARY | ~2019-11-15 | XMS | Encounter Summary ---
Demographics + + + | Address | [address] | | | [place] [address] | + + + | Home Phone | | + + + | Preferred Language | Unknown | + + + | Marital Status | | + + + | Restorationism Affiliation | Unknown | + + + | Race | Unknown | + + + | Ethnic Group | Unknown | + + + Author + + + | Author | [facility] | | | and [place] | + + + | Organization | [facility] | | | and [place] [...] Team Providers + +------+ + | Care Thread Weaver Name | Role | Phone | + +------+ + PCP | Unavailable | + +------+ + Encounter Details +--------+ + + + + | Date | Type | Department | Care Team | Description | +--------+ + + + + | 10/28/ | Hospital | [facility] | | | | 2011 | Encounter | MED CTR XRAY [address] | | | | | | [address] | | | | | | [place] [phone] | | | | | | [phone] | | | +--------+ + + + [...] Performed At | + + + | [facility] | [facility] | | [address] [facility] | [facility] | | ULTRASOUND OF THE GALLBLADDER: | [...] | | | Transcribed Date/Time: 10/29/2011 13:53 Cultural Anthropology Professor: ANDREW | | | <Electronically Signed by Ever Can MD> 10/29/119 | | + + + + + | Procedure Note | + + | Jason, Pineda Conversion - 07/24/2013 5:19 PM [facility] | | Diagnostic Imaging Department [address] [facility] | | ULTRASOUND OF THE GALLBLADDER: 10/29/2011 [...] | Signed by Ever Can MD> 10/29/11 4394 | | | |Pancreas as visualized is [...] 13:45 | |Transcribed Date/Time: 10/29/2011 13:53 | |Cultural Anthropology Professor: ANDREW | |<Electronically Signed by Ever Can MD> 10/29/11 2109 | + + + +---------+ + + | Performing | Address | City/State/Zipcode | Phone Number | | Organization | | | | + +---------+ + + | [place] | | | | | [facility] | | | | + +---------+ + + documented in this encounter Visit Diagnoses Not on filedocumented in this encounter"
--- OUTSIDE RECORDS SUMMARY | ~2019-11-15 | XMS | Clinical Summary ---
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 | 02/24/2015 | | [...] +--------+ +---------+--------+ | MEDICARE | MEDICA | [id number] | 08/16/19 | [phone] | | Medica | | | RE | | 04-Pre | 5 | | re | | | PART A | | sent | | | | | | AND B | | | | | | + +--------+ +--------+ +---------+--------+ | [employer] [facility] | IHS | [id number] | 07/26/19 | | | Indemn | [...] Person | Self | [birth year] | [address] | | | al/Fam | | 1936 | [phone] | [place] [address] | | | sabine | | | 4 (Home) | | + +--------+ +--------+ + + Advance Directives + + + + + | Type | Date Recorded | Patient | Explanation | | | | Tool Polisher | | + + + + + | Power of | | | | | Herbicide Sprayer | | | | + + + + + | Advance | | | | | Directive | | | | + + + + +
--- OUTSIDE RECORDS SUMMARY | ~2019-11-15 | XMS | Encounter Summary ---
Demographics + + + | Address | [address] | | | [place] [address] | + + + | Home Phone | | + + + | Preferred Language | Unknown | + + + | Marital Status | | + + + | Christian Affiliation | Unknown | + + + | Race | Unknown | + + + | Ethnic Group | Unknown | + + + Author + + + | Author | [facility] | | | and [place] | + + + | Organization | [facility] | | | and [place] | [...] Team Providers + +------+ + | Care Film Composer Name | Role | Phone | + +------+ + PCP | Unavailable | + +------+ + Encounter Details +--------+ + + + + | Date | Type | Department | Care Team | Description | +--------+ + + + + | 09/24/ | Hospital | [facility] | Sherrill Barnes MD | New onset atrial | | 2015 - | Encounter | [facility] | [address] | fibrillation (HCC); | | | | CARE FLO[address] | [place] [address] | CHF (congestive | | 10/01/ | | [address] | [phone] | heart failure) | | 2015 | | [place], [place] | | ([facility]); NSTEMI | | | | [address] | | (non-ST elevated | | | | [phone] | | myocardial | | | | | | infarction) ([facility]) | +--------+ + + + + Social [...] + + documented as of this encounter Discharge Summaries Sherrill Barnes MD - 10/02/2014 3:52 PM PDTFormatting of this note might be different from e original. Discharge Summaries by Sherrill Barnes MD at 10/02/14 583 Author: Sherrill Barnes MD Service: Hospitalist Author Type: Physician Filed: 10/03/14 1621 Date of Service: 10/02/14 606 Status: Signed Copy Worker: Sherrill Barnes MD (Physician) [facility] Service: Hospitalist Discharge Summary Date of Admission: 09/24/2014 Date of Discharge: 10/01/2014 Discharge Physician: Sherrill Barnes MD Treatment Team: Consulting Physician: Bryan Ceja MD Admitting Provider: Sherrill Barnes MD Discharge Diagnoses: Principal Problem: NSTEMI (non-ST elevated myocardial infarction) Active Problems: New onset a-fib RVR CHF (congestive heart failure) DM (diabetes mellitus) 2 CAD (coronary artery disease) s/p 1 stent HTN (hypertension) Other and unspecified hyperlipidemia Obesity, unspecified SOB (shortness of breath) Legs swelling Elevated brain natriuretic peptide (BNP) level Severe Mitral regurgitation Pulmonary HTN Resolved Problems: * No resolved hospital problems. * Procedures: * No surgery found * Significant Diagnostic Studies: -ray Chest 1 View [[id number]] Resulted: 09/25/14 0748 Order Status: Completed Updated: 09/25/14 0754 Narrative: HISTORY: Shortness of breath. CHF. No onset atrial fibrillation. COMPARISON: 09/24/12. TECHNIQUE: AP portable film of the chest at 0555 hours FINDINGS: Persistent mild cardiac enlargement, now with diffuse interstitial prominence and mild cent ral airspace prominence, consistent with evolving pulmonary edema. No effusions. Impression: 1. CHF with diffuse interstitial and mild central airspace edema. 2. Persistent mild cardiac enlargement. 1. Overall left ventricular systolic function is moderate-severely impaired with, an EF bet ween 30 - 35 %. 2. Restrictive LV diastolic filling pattern, consistent with elevated LA pressure and sever e dysfunction (grade III). 3. Akinesia of the mid-distal anterior wall, distal inferior wall and apex (LAD territory). 4. Severe mitral regurgitation is present. 5. There is moderate pulmonary hypertension Cardiac cath ANGIOGRAM 1. Left main normal size, no significant stenosis. 2. LAD is 100% occluded. 3. Left circumflex artery is 90% stenosis in the mid portion as known from before. 4. First obtuse marginal high takeoff, tiny, no significant stenosis. Second obtuse marginal small, no significant stenosis. Third obtuse marginal normal size, no significant stenosis. CONTRAST USED 100 mL. COMPLICATIONS None. ESTIMATED BLOOD LOSS Less than 20 mL. CONCLUSIONS Successful angioplasty for the mid left circumflex artery with Promus Premier 3 x 38 mm. RECOMMENDATIONS 1. Aspirin 81 mg indefinitely. 2. Plavix 75 mg for 1 year. 3. Continue the Coumadin for the atrial fibrillation with a target INR 2 to 2.5. 4. Reevaluate the ejection fraction and the mitral valve regurgitation in 1 to 2 months for evaluation for the need of any further percutaneous management of the mitral valve regurgitation and the need for an AICD. Read by BRYAN CEJA MD 09/30/2014 09:06 A F HISTORY OF PRESENTATION: Kimberlee Peguero is a 78 y.o. female who presented with Afib RVR and CHF please refer to H& P and consult notes for details. HOSPITAL COURSE: 1Afib RVR / P-Afib and NSTEMI with acute sys CHF/severe MR s/p cardiac cath by dr.alqaisi guzmán ontinue continue plavix 75 mg daily and ASA.continue BBlocker,cozaar,statin,lasix.coumadin I NR goal 2-2.5 per cardiology recc. 2.DM2 stable continue home meds 3.HTN stable continue current BP meds 4.Hyperlipidemia continue statins 5.obesity she is counseled on weight loss and life style modification,she understands 6.asthma stable continue Flovent,she is on RA All her questions were addressed and she was discharged in a stable condition cleared per conchis rivera, covered with side effects of newly added medications. Past Medical History Diagnosis Date Coronary artery disease Old myocardial infarction Atrial fibrillation Hypertension Hyperlipidemia Diabetes mellitus, type 2 Asthma Past Surgical History Procedure Laterality Date Tubal ligation Hysterectomy Cardiac catheterization Coronary angioplasty with stent placement Allergies Allergen Reactions Amoxicillin Other (See Comments) Pt states "I dont know" Azithromycin Other (See Comments) Pt states "I dont know" Clavulanic Acid Other (See Comments) Pt states "I dont know" Clindamycin Other (See Comments) Pt states "I dont know" Penicillins Other (See Comments) Pt states "I dont know" No prescriptions prior to admission DISCHARGE EXAM Vital Signs: BP 110/71 | Pulse 66 | Temp(Src) 98 F (36.7 C) (Oral) | Resp 14 | Ht 1.549 m (5' 1") | Wt 78.5 kg (173 lb 1 oz) | BMI 32.72 kg/m2 | SpO2 100% | ? No General appearance: alert, appears stated age, cooperative, no distress and moderately obes e Head: Normocephalic, without obvious abnormality, atraumatic Neck: no adenopathy, no carotid bruit, no JVD, supple, symmetrical, trachea midline and thy roid not enlarged, symmetric, no tenderness/mass/nodules Lungs: clear breath sounds bibasilar and bilaterally Heart:Afib ,systolic murmer Abdomen: soft, non-tender; bowel sounds normal; no masses, no organomegaly Extremities: edema trace lower extremities , atraumatic, no cyanosis.intact cath site Pulses: 2+ and symmetric Neurologic: AXOX3 ,Grossly normal DATA CBC: Lab Results Component Value Date WBC 7.94 10/01/2014 RBC 4.41 10/01/2014 HGB 13.0 10/01/2014 HCT 39.2 10/01/2014 MCV 89.0 10/01/2014 MCH 29.5 10/01/2014 MCHC 33.1 10/01/2014 RDW 45.5 10/01/2014 PLT 229 10/01/2014 MPV 8.4 10/01/2014 DIFFTYPE AUTOMATED 10/01/2014 CMP: Lab Results Component Value Date NA 135 10/01/2014 K 3.7 10/01/2014 CL 107 10/01/2014 CO2 29 10/01/2014 ANIONGAP 3* 10/01/2014 GLUF 96 10/01/2014 BUN 13 10/01/2014 CREATININE 0.77 10/01/2014 BCR 17 10/01/2014 CA 9.4 10/01/2014 PROT 6.1* 09/27/2014 ALB 3.6 09/27/2014 GLOB 2.5 09/27/2014 BILITOT 0.9 09/27/2014 ALP 72 09/27/2014 AST 22 09/27/2014 ALT 17 09/27/2014 EGFR >60 10/01/2014 Disposition: Home Condition: Stable Code Status: Prior Discharge Instructions Protime-INR Standing Status: Future Number of Occurrences: 1 Standing Exp. Date: 10/02/15 Diet Cardiac Diet Diabetic Activity as Tolerated Scheduling Instructions: Avoid heavy duty Call MD for: Persistant Nausea and Vomiting Call MD for: Temperature > 100.4F (38C) Call MD for: Severe Uncontrolled Pain Call MD for: Redness, Tenderness, or Signs of Infection (Pain, Swelling, Redness, Odor or Green/Yellow Discharge Around Incision Site) Call MD for: Difficulty Breathing, Headache or Visual Disturbances Call MD for: Hives Call MD for: Persistant Dizziness or Light-Headedness Call MD for: Extreme Fatigue Follow up: Guided Patient Services GPS GPS hours are Mon- Fri 7:30am-4:00pm, Call as needed, [employer] [place] [place] and Patient Navigator [place]. Bryan Ceja MD [address] [place] [address] [place] [address] Schedule an appointment as soon as possible for a visit in 2 week(s) [place] [address] [place] [id number] Follow up on 10/06/2014 Please go to follow-up appointment at SaturdayOctober 06 at 2:00pm. Dr. Guillory is [facility] new primary care physician and will follow patients INR levels as well. Eva An MD [facility] [address] [place] [address] Medication List START taking these medications clopidogrel 75 MG tablet QTY: 30 tablet Refills: 0 Commonly known as: PLAVIX Take 1 tablet by mouth daily. furosemide 40 MG tablet QTY: 30 tablet Refills: 0 Doctor's comments: Hold for SBP less than 100 Commonly known as: LASIX Take 1 tablet by mouth daily. nitroGLYCERIN 0.4 MG SL tablet QTY: 90 tablet Refills: 0 Doctor's comments: Hold for SBP less than 100 Commonly known as: NITROSTAT Place 1 tablet under the tongue every 5 (five) minutes as needed for Chest pain. potassium chloride SA 20 MEQ tablet QTY: 30 tablet Refills: 0 Commonly known as: K-DUR,KLOR-CON Take 1 tablet by mouth daily. warfarin 1 MG tablet QTY: 30 tablet Refills: 0 Doctor's comments: - Start when INR is less than 2 - INR goal is 2-2.5 Commonly known as: COUMADIN Take 1 tablet by mouth daily. CHANGE how you take these medications atorvastatin 40 MG tablet QTY: 30 tablet Refills: 0 Commonly known as: LIPITOR Take 1 tablet by mouth nightly. What changed: - medication strength - how much to take losartan 50 MG tablet QTY: 30 tablet Refills: 0 Doctor's comments: Hold for SBP less than 100 Commonly known as: COZAAR Take 1 tablet by mouth daily. What changed: - medication strength - how much to take metoprolol 100 MG 24 hr tablet QTY: 30 tablet Refills: 0 Doctor's comments: - Hold for SBP less than 100 - Hold for HR less than 60 Commonly known as: TOPROL-XL Take 1 tablet by mouth daily. What changed: - medication strength - how much to take CONTINUE taking these medications aspirin 81 MG EC tablet Refills: 0 ezetimibe 10 MG tablet Refills: 0 Commonly known as: ZETIA fluticasone 50 MCG/BLIST diskus inhaler Refills: 0 Commonly known as: FLOVENT DISKUS glipiZIDE 10 MG 24 hr tablet Refills: 0 Commonly known as: GLUCOTROL metFORMIN 500 MG tablet Refills: 0 Commonly known as: GLUCOPHAGE saxagliptin 5 MG tablet Refills: 0 Commonly known as: ONGLYZA STOP taking these medications amLODIPine 5 MG tablet Commonly known as: NORVASC fexofenadine 180 MG tablet Commonly known as: NEENA Where to Get Your Medications These are the prescriptions that you need to pickling solution maker. You may get the following medications from any pharmacy - atorvastatin 40 MG tablet - clopidogrel 75 MG tablet - furosemide 40 MG tablet - losartan 50 MG tablet - metoprolol 100 MG 24 hr tablet - nitroGLYCERIN 0.4 MG SL tablet - potassium chloride SA 20 MEQ tablet - warfarin 1 MG tablet Discharge took over 30 minutes, to include final examination, discussion of admission, and preparation of prescriptions, instructions for on-going care, follow-up and documentation o f discharge summary. Sherrill Barnes MD @td documented in this encou nter Medications at Time of Discharge + + + +---------+ + + | Medication | Sig | Dispensed | Refills | Start | End Date | | | | | | Date | | + + + +---------+ + + | atorvaSTATin | Take 1 tablet by | | 0 | 10/02/19 | | | (LIPITOR) 40 mg | mouth nightly. | | | 15 | 6 | | tablet | | | | | | + + + +---------+ + + | clopidogrel | Take 1 tablet by | | 0 | 10/02/19 | | | (PLAVIX) 75 mg | mouth Daily. | | | 15 | 6 | | tablet | | | | | | + + + +---------+ + + | furosemide (LASIX) | Take 1 tablet by | | 0 | 10/02/19 | | | 40 mg tablet | mouth Daily. | | | 15 | 6 | + + + +---------+ + + | metoprolol | Take 1 tablet by | | 0 | 10/02/19 | | | succinate | mouth Daily. | | | 15 | 6 | | (TOPROL-XL) 100 mg | | | | | | | ER tablet | | | | | | + + + +---------+ + + | nitroglycerin | Place 1 tablet under | | 0 | 10/02/19 | | | (NITROSTAT) 0.4 mg | the tongue every 5 | | | 15 | 6 | | SL tablet | (five) minutes as | | | | | | | needed for Chest | | | | | | | pain. | | | | | + + + +---------+ + + | potassium chloride | Take 1 tablet by | | 0 | 10/02/19 | | | (K-DUR) 20 mEq ER | mouth Daily. | | | 15 | 6 | | tablet | | | | | | + + + +---------+ + + documented as of this encounter Progress Notes Conversion Transaction, Provider Unknown - 10/01/2014 12:30 PM PDTFormatting of this note m ight be different from the original. Nurse Progress Note by Marcy Sosa RN at 10/01/14 1230 Author: Marcy Sosa RN Service: (none) Author Type: Registered Nurse Filed: 10/01/14 4869 Date of Service: 10/01/14 1230 Status: Signed Copy Worker: Marcy Sosa RN (Registered Nurse) Pt discharged to home with daughter transporting. IV dc'd. Pt has no further questions. Pt will have PCP follow coumadin (INR) levels. Pt is aware to take her coumadin once INR camacho s reached 2. Pt also explained the importance of remembering to take her plavix every day. Noted 10/01/2014 @ 1230 onver [place] Transaction, Provider Unknown - 10/01/2014 8:46 AM PDT Case Management by MOLLY Medina at 10/01/14 9186 Author: MOLLY Medina Service: (none) Author Type: Rn Sexual Assault Filed: 10/01/14 9590 Date of Service: 10/01/14845 Status: Addendum Copy Worker: MOLLY Medina (Rn Sexual Assault) Related Notes: Original Note by MOLLY Medina (Rn Sexual Assault) filed at 10/01/14 0998 CM met w/ pt re: d/c planning. Pt reports she would like Dr Guillory to follow INR. CM le ft message for Megha re: INR follow up apt w/ Dr Guillory. Addendum: CM spoke w/ Megha who reported Dr Guillory can schedule pt for October 06 at 2:00pm. Dr Guillory is pts new primary care physician and will be following pts INR levels. CM entered apt in AVS. CM has confirmed apt w/ pt. CM confirmed apt w/ Dr Barnes. IM ex plained, signed and in chart. MOLLY Medina Sherrill Reed MD - 09/30/2014 6:40 PM PDTFormatting of this note might be different from the origi nal. Progress Notes by Sherrill Barnes MD at 09/30/141839 Author: Sherrill Barnes MD Service: Hospitalist Author Type: Physician Filed: 09/30/141845 Date of Service: 09/30/141839 Status: Signed Copy Worker: Sherrill Barnes MD (Physician) [facility] Service: Hospitalist Progress Note Hospital Day: LOS: 6 days Post-Op Day: * No surgery found * SUBJECTIVE Patient Summary: refer to H&P and consult note for details Events Overnight: Pt seen and examined,she is in NSR ,denies SOB or CP or abdominal p ain,stable VS ,s/p angioplasty of mid left circumflex artery,INR is 3.8,no s/s of bleeding Scheduled Medications aspirin 81 mg Oral Daily with breakfast atorvastatin 40 mg Oral Nightly clopidogrel 75 mg Oral Daily ezetimibe 10 mg Oral Daily famotidine 20 mg Oral BID fluticasone 1 puff Inhalation BID furosemide 40 mg Oral Daily glipiZIDE 10 mg Oral Daily losartan 50 mg Oral Daily metoprolol 100 mg Oral Daily saxagliptin 5 mg Oral Daily Continuous Infusions PRN Medications acetaminophen OR acetaminophen, nitroGLYCERIN, ondansetron OR ondansetron, polyethy bebeto glycol, potassium chloride OR potassium chloride OR potassium chloride OR p otassium chloride OR potassium chloride OR potassium chloride, saline lock IV AND* * sodium chloride 0.9 %, zolpidem OBJECTIVE Vital Signs: BP 158/75 | Pulse 69 | Temp(Src) 97.5 F (36.4 C) (Oral) | Resp 16 | Ht 1.549 m (5' 1") | Wt 79.7 kg (175 lb 11.3 oz) | BMI 33.22 kg/m2 | SpO2 97% | ? No General appearance: alert, appears stated age, cooperative, no distress and moderately obes e Head: Normocephalic, without obvious abnormality, atraumatic Neck: no adenopathy, no carotid bruit, no JVD, supple, symmetrical, trachea midline and thy roid not enlarged, symmetric, no tenderness/mass/nodules Lungs: clear breath sounds bibasilar and bilaterally Heart: RRR,systolic murmer Abdomen: soft, non-tender; bowel sounds normal; no masses, no organomegaly Extremities: edema trace lower extremities , atraumatic, no cyanosis.intact cath site Pulses: 2+ and symmetric Neurologic: AXOX3 ,Grossly normal.did not test gait DATA CBC: Lab Results Component Value Date WBC 7.25 09/30/2014 RBC 4.43 09/30/2014 HGB 13.1 09/30/2014 HCT 39.8 09/30/2014 MCV 89.7 09/30/2014 MCH 29.6 09/30/2014 MCHC 33.0 09/30/2014 RDW 45.9 09/30/2014 PLT 231 09/30/2014 MPV 8.3 09/30/2014 DIFFTYPE AUTOMATED 09/30/2014 CMP: Lab Results Component Value Date NA 138 09/30/2014 K 3.3* 09/30/2014 CL 105 09/30/2014 CO2 26 09/30/2014 ANIONGAP 10 09/30/2014 GLUF 120* 09/30/2014 BUN 16 09/30/2014 CREATININE 0.92 09/30/2014 BCR 17 09/30/2014 CA 9.2 09/30/2014 PROT 6.1* 09/27/2014 ALB 3.6 09/27/2014 GLOB 2.5 09/27/2014 BILITOT 0.9 09/27/2014 ALP 72 09/27/2014 AST 22 09/27/2014 ALT 17 09/27/2014 EGFR >60 09/30/2014 Lab Results Component Value Date INR 3.8 09/30/2014 INR 2.1 09/29/2014 INR 2.0 09/28/2014 Troponin: Lab Results Component Value Date TROPONINI 0.115* 09/25/2014 Lab Results Component Value Date HGBA1C 6.3* 09/25/2014 Results for KIMBERLEE PEGUERO ( ) as of 09/25/2014 17:01 Ref. Range 09/25/2014 04:00 TSH Latest Range: 0.45-5.10 uIU/mL 7.28 (H) ECHO 1. Overall left ventricular systolic function is moderate-severely impaired with, an EF bet ween 30 - 35 %. 2. Restrictive LV diastolic filling pattern, consistent with elevated LA pressure and sever e dysfunction (grade III). 3. Akinesia of the mid-distal anterior wall, distal inferior wall and apex (LAD territory). 4. Severe mitral regurgitation is present. 5. There is moderate pulmonary hypertension. Cardiac cath CONCLUSIONS 1. Non-ST elevation myocardial infarction with severe systolic dysfunction with ejection fraction 30% to 35%, and severe mitral valve regurgitation. 2. 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 3. Intermediate disease in the right coronary artery with negative fractional flow reserve of 0.87. 4. 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 RECOMMENDATIONS 1. Discussed with cardiothoracic surgery the possibility of bypass surgery with targets to the very distal LAD, third obtuse marginal, and mitral valve replacement versus angioplasty for the third obtuse marginal and reevaluation for the severity of the mitral valve regurgitation. 2. Consider having YAQUELIN and viability study for further evaluation. Read by BRYAN CEJA MD 09/25/2014 05:25 P ECHO YAQUELIN 1. Overall left ventricular systolic function is severely impaired with, an EF between 25 - 30 %. 2. The left atrium is markedly dilated. 3. Severe mitral regurgitation is present. 4. The right ventricular systolic pressure, as measured by Doppler, is 44.12mmHg Cardiac cath CONCLUSIONS Successful angioplasty for the mid left circumflex artery with Promus Premier 3 x 38 mm. RECOMMENDATIONS 1. Aspirin 81 mg indefinitely. 2. Plavix 75 mg for 1 year. 3. Continue the Coumadin for the atrial fibrillation with a target INR 2 to 2.5. 4. Reevaluate the ejection fraction and the mitral valve regurgitation in 1 to 2 months for evaluation for the need of any further percutaneous management of the mitral valve regurgitation and the need for an AICD. Read by BRYAN CEJA MD 09/30/2014 09:06 A PROBLEM LIST Principal Problem: NSTEMI (non-ST elevated myocardial infarction) Active Problems: New onset a-fib RVR CHF (congestive heart failure) DM (diabetes mellitus) 2 CAD (coronary artery disease) s/p 1 stent HTN (hypertension) Other and unspecified hyperlipidemia Obesity, unspecified SOB (shortness of breath) Legs swelling Elevated brain natriuretic peptide (BNP) level Severe Mitral regurgitation Pulmonary HTN ASSESSMENT & PLAN 1Afib RVR initially now in P-Afib and NSTEMI with acute sys CHF/severe MR followed by dr.a kothari continue continue plavix 75 mg daily and ASA.continue BBlocker,cozaar,statin,lasix.ho ld coumadin as INR is above 3. 2.DM2 stable BG continue current meds except for Metformin due to cardiac cath,monitor BG . 3.HTN stable continue current BP meds and monitor 4.Hyperlipidemia continue statins, reviewed lipid panel. 5.obesity she is counseled on weight loss and life style modification,she understands. 6.GI px Pepcid 7.DVT px INR is already above 3 and SCDs 8.hypoakalemia replete via electrolyte protocol and monitor 9.asthma stable continue Flovent,she is on RA discharge when cleared per cardiology possibly on Saturday Disposition: Admitted Code Status: Full Code Sherrill Barnes MD 09/30/2014 onversion Transaction, Provider Unknown - 09/30/2014 3:55 PM PDTFormatting of this note might be different from shalini cruz original. Case Management by MOLLY Shields at 09/30/14 1600 Author: MOLLY Shields Service: (none) Author Type: Rn Sexual Assault Filed: 09/30/14 5156 Date of Service: 09/30/141554 Status: Addendum Copy Worker: MOLLY Shields (Rn Sexual Assault) Related Notes: Original Note by MOLLY Shields (Rn Sexual Assault) filed at 09/30/14 8271 Cm met with patient to discuss discharge planning and assist with setting up primary care a ppointment and identify who will follow her INR levels. Patient goes to [facility]; a nd requested assistance transferring care to Dr. Guillory from her current provider. Cm [facility] and patient accepted to be seen by Dr. Guillory. [facility] will also f ollow the INR level. Megha; coordinator for Dr. Guillory advised to call at time of dischar ge for coumadin follow up and primary care appointment. She advised it would not be problema tic getting patient in within a few days of discharge. DCP 1. Home with family 2. [facility] to follow INR level 3. CM to call at time of discharge to schedule coumadin f/u and primary care appt. [facility] [place]-[phone] Sherrill Reed MD - 09/29/2014 3:41 PM PDTFormatting of this note might be different from the origi nal. Progress Notes by Sherrill Barnes MD at 09/29/141540 Author: Sherrill Barnes MD Service: Hospitalist Author Type: Physician Filed: 09/29/142122 Date of Service: 09/29/141540 Status: Addendum Copy Worker: Sherrill Barnes MD (Physician) Related Notes: Original Note by Sherrill Barnes MD (Physician) filed at 09/29/141543 [facility] Service: Hospitalist Progress Note Hospital Day: LOS: 5 days Post-Op Day: * No surgery found * SUBJECTIVE Patient Summary: refer to H&P and consult note for details Events Overnight: Pt seen and examined,she is in NSR ,denies SOB or CP or abdominal p ain,stable BP,awaiting angioplasty in AM. Scheduled Medications aspirin 81 mg Oral Daily with breakfast atorvastatin 40 mg Oral Nightly clopidogrel 75 mg Oral Daily ezetimibe 10 mg Oral Daily famotidine 20 mg Oral BID fluticasone 1 puff Inhalation BID furosemide 40 mg Oral Daily glipiZIDE 10 mg Oral Daily losartan 50 mg Oral Daily metoprolol 100 mg Oral Daily saxagliptin 5 mg Oral Daily warfarin 5 mg Oral Daily Continuous Infusions PRN Medications acetaminophen OR acetaminophen, nitroGLYCERIN, ondansetron OR ondansetron, polyethy bebeto glycol, potassium chloride OR potassium chloride OR potassium chloride OR p otassium chloride OR potassium chloride OR potassium chloride, saline lock IV AND* * sodium chloride 0.9 %, zolpidem OBJECTIVE Vital Signs: BP 126/71 | Pulse 64 | Temp(Src) 98 F (36.7 C) (Oral) | Resp 20 | Ht 1.549 m (5' 1") | Wt 80.1 kg (176 lb 9.4 oz) | BMI 33.38 kg/m2 | SpO2 100% | ? No General appearance: alert, appears stated age, cooperative, no distress and moderately obes e Head: Normocephalic, without obvious abnormality, atraumatic Neck: no adenopathy, no carotid bruit, no JVD, supple, symmetrical, trachea midline and thy roid not enlarged, symmetric, no tenderness/mass/nodules Lungs: clear breath sounds bibasilar and bilaterally Heart: RRR,systolic murmer Abdomen: soft, non-tender; bowel sounds normal; no masses, no organomegaly Extremities: edema trace lower extremities , atraumatic, no cyanosis. Pulses: 2+ and symmetric Neurologic: AXOX3 ,Grossly normal.did not test gait DATA CBC: Lab Results Component Value Date WBC 8.21 09/29/2014 RBC 4.46 09/29/2014 HGB 13.2 09/29/2014 HCT 39.8 09/29/2014 MCV 89.4 09/29/2014 MCH 29.7 09/29/2014 MCHC 33.2 09/29/2014 RDW 46.4 09/29/2014 PLT 225 09/29/2014 MPV 8.3 09/29/2014 DIFFTYPE AUTOMATED 09/29/2014 CMP: Lab Results Component Value Date NA 137 09/29/2014 K 3.6 09/29/2014 CL 105 09/29/2014 CO2 25 09/29/2014 ANIONGAP 11 09/29/2014 GLUF 90 09/29/2014 BUN 11 09/29/2014 CREATININE 0.75 09/29/2014 BCR 15 09/29/2014 CA 9.0 09/29/2014 PROT 6.1* 09/27/2014 ALB 3.6 09/27/2014 GLOB 2.5 09/27/2014 BILITOT 0.9 09/27/2014 ALP 72 09/27/2014 AST 22 09/27/2014 ALT 17 09/27/2014 EGFR >60 09/29/2014 Lab Results Component Value Date INR 2.1 09/29/2014 INR 2.0 09/28/2014 INR 2.0 09/27/2014 Troponin: Lab Results Component Value Date TROPONINI 0.115* 09/25/2014 Lab Results Component Value Date HGBA1C 6.3* 09/25/2014 Results for KIMBERLEE PEGUERO ( ) as of 09/25/2014 17:01 Ref. Range 09/25/2014 04:00 TSH Latest Range: 0.45-5.10 uIU/mL 7.28 (H) ECHO 1. Overall left ventricular systolic function is moderate-severely impaired with, an EF bet ween 30 - 35 %. 2. Restrictive LV diastolic filling pattern, consistent with elevated LA pressure and sever e dysfunction (grade III). 3. Akinesia of the mid-distal anterior wall, distal inferior wall and apex (LAD territory). 4. Severe mitral regurgitation is present. 5. There is moderate pulmonary hypertension. Cardiac cath CONCLUSIONS 1. Non-ST elevation myocardial infarction with severe systolic dysfunction with ejection fraction 30% to 35%, and severe mitral valve regurgitation. 2. 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 3. Intermediate disease in the right coronary artery with negative fractional flow reserve of 0.87. 4. 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 RECOMMENDATIONS 1. Discussed with cardiothoracic surgery the possibility of bypass surgery with targets to the very distal LAD, third obtuse marginal, and mitral valve replacement versus angioplasty for the third obtuse marginal and reevaluation for the severity of the mitral valve regurgitation. 2. Consider having YAQUELIN and viability study for further evaluation. Read by BRYAN CEJA MD 09/25/2014 05:25 P ECHO YAQUELIN 1. Overall left ventricular systolic function is severely impaired with, an EF between 25 - 30 %. 2. The left atrium is markedly dilated. 3. Severe mitral regurgitation is present. 4. The right ventricular systolic pressure, as measured by Doppler, is 44.12mmHg PROBLEM LIST Principal Problem: NSTEMI (non-ST elevated myocardial infarction) Active Problems: New onset a-fib RVR CHF (congestive heart failure) DM (diabetes mellitus) 2 CAD (coronary artery disease) s/p 1 stent HTN (hypertension) Other and unspecified hyperlipidemia Obesity, unspecified SOB (shortness of breath) Legs swelling Elevated brain natriuretic peptide (BNP) level Severe Mitral regurgitation Pulmonary HTN ASSESSMENT & PLAN 1Afib RVR initially now in P-Afib and NSTEMI with acute sys CHF/severe MR followed by dr.a kothari continue Coumadin INR goal 2-2.5 ,plavix 75 mg daily starting and ASA.continue BBloc ker,cozaar,statin,lasix. 2.DM2 stable BG continue current meds except for Metformin due to cardiac cath,monitor BG . 3.HTN stable continue current BP meds and monitor 4.Hyperlipidemia continue statins, reviewed lipid panel. 5.obesity she is counseled on weight loss and life style modification,she understands. 6.GI px Pepcid 7.DVT px Lovenox and SCDs 8.hypoakalemia replete via electrolyte protocol and monitor discharge when cleared per cardiology possibly on Saturday Disposition: Admitted Code Status: Full Code Sherrill Barnes MD 09/29/2014 Amaury, Bryan - 09/30/19 9:01 AM PDT Progress Notes by Bryan Ceja MD at 09/29/14 0901 Author: Bryan Ceja MD Service: Cardiology Author Type: Physician Filed: 09/29/14 1222 Date of Service: 09/29/14 0901 Status: Signed Copy Worker: Bryan Ceja MD (Physician) Related Notes: Original Note by Bryan Ceja MD (Physician) filed at 09/29/14 0908 [facility] Service: Cardiology Progress Note Name of Electric Vehicle Electrician: Bryan Ceja MD I have seen the patient on 09/29/2014 SUBJECTIVE Ms. Peguero is a 78-year-old lady who was admitted with acute shortness of breath, found to h ave cardiomyopathy with EF of 25% to 30%, 2-vessel disease with total occlusion of the LAD, severe mitral valve regurgitation. She was optimized on medical management. Today she feels better. She denies any history of chest pain or shortness of breath. Medications were reviewed. OBJECTIVE Vital Signs: BP 111/55 | Pulse 68 | Temp(Src) 97.5 F (36.4 C) (Oral) | Resp 24 | Ht 1.549 m (5' 1") | Wt 80.1 kg (176 lb 9.4 oz) | BMI 33.38 kg/m2 | SpO2 98% | ? No Cardiovascular: Irregular rhythm, S1 normal and S2 normal. No murmur heard. Pulses: Radial pulses are 2+ on the right side, and 2+ on the left side. Pulmonary/Chest: Effort normal and breath sounds normal. No wheezes. No rales. Abdominal: Soft. No tenderness. Musculoskeletal: No edema. Neurological: Alert. No cranial nerve deficit. Skin: Warm and dry. DATA Recent Labs Lab 09/29/14 0344 09/25/14 0400 NA 137 < > 137 K 3.6 < > 3.6 CO2 25 < > 24 BUN 11 < > 15 CREATININE 0.75 < > 0.90 MG -- -- 2.1 < > = values in this interval not displayed. Recent Labs Lab 09/29/14 0344 WBC 8.21 HGB 13.2 HCT 39.8 MCV 89.4 PLT 225 EKG: September 25, 2014, showed sinus rhythm, heart rate 75, left anterior fascicular block, normal P wave, TN interval. No significant T waves. ST-T segment consistent with ischemia, prolonge d QT. September 24, 2014, at [facility] showed atrial fibrillation with rapid ventricular r esponse, heart rate 124, left anterior fascicular block, no significant Q waves, ST-T segmen t consistent with ischemia, not different from the same changes while at sinus rhythm. Prolo nged QT. Last Echo: Transthoracic echocardiogram September 25, 2014, showed an EF of 30% to 35%, grade 3 diastolic dysfunction, akinesia of the mid to distal anterior wall, distal inferior wall and the apex which is the LAD territory, severe mitral valve regurgitation, moderate pulmonary hypertensi on with PA pressure estimated at 50 mmHg, mild to moderate tricuspid valve regurgitation. Transesophageal echocardiogram September 26, 2014, showed an EF of 25% to 30%, severely dilated left atrium, severe mitral valve regurgitation, mild pulmonary hypertension with PA pressur e 44 mmHg, mild tricuspid valve regurgitation. Last stress test: Last cath: September 25, 2014, showed 2-vessel disease with total occlusion of the LAD which reconstitutes in the very distal part, significant disease in the mid left circumflex artery into the thi rd obtuse marginal, and intermittent disease in the RCA with negative FFR of 0.87. 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 Carotid US: AAA screening: Lower extremity US: OTHERS: ASSESSMENT & PLAN Ms. Peguero is a 78-year-old lady with the following medical conditions. 1. Hypertension. 2. Hypercholesterolemia. 3. Diabetes, on oral hypoglycemic on oral hypoglycemic medications. 4. Coronary artery disease, previous stent in the left anterior descending in 1996, recent heart catheterization in September 2014 showing 2-vessel disease including total occlusion of th e left anterior descending and mid left circumflex artery, and negative fractional flow rese rve of the right coronary artery. 5. Cardiomyopathy with ejection fraction 25% to 30%, ischemic and valvular. 6. Severe mitral valve regurgitation. 7. Mild to moderate pulmonary hypertension. 8. Paroxysmal atrial fibrillation. 9. Ex-smoker, quit in April 2014 after smoking since she was 20 years old 1 pack every 2 weeks. Admitted with acute decompensated congestive heart failure and atrial fibrillation. Heart catheterization and echocardiogram were done as part of the workup. Cardiothoracic surgery was consulted for possible bypass surgery with mitral valve replacem ent, but she was felt not to be a good surgical candidate; please refer to Dr. Garcia's not es for further details. We are going to proceed with angioplasty for the mid left circumflex artery through the lef t radial artery. Further evaluations for the heart failure and the mitral valve regurgitation will be done i n the future. In the meantime, I agree with oral aspirin 81 mg. The patient was started on Plavix 75 mg a nd she has been already loaded. Continue the Coumadin with target INR 2 to 2.5. Continue with Lipitor 40 mg. Continue on losartan 50 mg. Continue on Toprol XL 100 mg once a day. She has good control of her blood pressure and heart rate based on these medications. The patient will be anticipated to be discharged on Saturday. Code Status: Full Code Bryan Ceja MD 09/29/2014 Sherrill Reed MD - 09/29/19 4:07 PM PDT Progress Notes by Sherrill Barnes MD at 09/28/14 6745 Author: Sherrill Barnes MD Service: Hospitalist Author Type: Physician Filed: 09/28/14 2659 Date of Service: 09/28/14 1607 Status: Signed Copy Worker: Sherrill Barnes MD (Physician) [facility] Service: Hospitalist Progress Note Hospital Day: LOS: 4 days Post-Op Day: * No surgery found * SUBJECTIVE Patient Summary: refer to H&P and consult note for details Events Overnight: Pt seen and examined,she is in NSR ,denies SOB or CP or abdominal p ain,stable BP.stable H&H and renal function. Scheduled Medications aspirin 81 mg Oral Daily with breakfast atorvastatin 40 mg Oral Nightly clopidogrel 300 mg Oral Once [START ON 09/29/2014] clopidogrel 75 mg Oral Daily ezetimibe 10 mg Oral Daily famotidine 20 mg Oral BID fluticasone 1 puff Inhalation BID furosemide 40 mg Oral Daily glipiZIDE 10 mg Oral Daily losartan 50 mg Oral Daily metoprolol 100 mg Oral Daily saxagliptin 5 mg Oral Daily warfarin 5 mg Oral Daily Continuous Infusions PRN Medications acetaminophen OR acetaminophen, nitroGLYCERIN, ondansetron OR ondansetron, polyethy bebeto glycol, potassium chloride OR potassium chloride OR potassium chloride OR p otassium chloride OR potassium chloride OR potassium chloride, saline lock IV AND* * sodium chloride 0.9 %, zolpidem OBJECTIVE Vital Signs: BP 116/55 | Pulse 74 | Temp(Src) 97.7 F (36.5 C) (Oral) | Resp 18 | Ht 1.549 m (5' 1") | Wt 80.1 kg (176 lb 9.4 oz) | BMI 33.38 kg/m2 | SpO2 98% | ? No General appearance: alert, appears stated age, cooperative, no distress and moderately obes e Head: Normocephalic, without obvious abnormality, atraumatic Neck: no adenopathy, no carotid bruit, no JVD, supple, symmetrical, trachea midline and thy roid not enlarged, symmetric, no tenderness/mass/nodules Lungs: clear breath sounds bibasilar and bilaterally Heart: RRR,systolic murmer Abdomen: soft, non-tender; bowel sounds normal; no masses, no organomegaly Extremities: edema trace lower extremities , atraumatic, no cyanosis. Pulses: 2+ and symmetric Neurologic: AXOX3 ,Grossly normal.did not test gait DATA CBC: Lab Results Component Value Date WBC 7.46 09/28/2014 RBC 4.36 09/28/2014 HGB 12.9 09/28/2014 HCT 39.0 09/28/2014 MCV 89.5 09/28/2014 MCH 29.6 09/28/2014 MCHC 33.0 09/28/2014 RDW 45.1 09/28/2014 PLT 203 09/28/2014 MPV 8.5 09/28/2014 DIFFTYPE AUTOMATED 09/28/2014 CMP: Lab Results Component Value Date NA 136 09/28/2014 K 3.6 09/28/2014 CL 105 09/28/2014 CO2 25 09/28/2014 ANIONGAP 10 09/28/2014 GLUF 135* 09/28/2014 BUN 11 09/28/2014 CREATININE 0.77 09/28/2014 BCR 14 09/28/2014 CA 9.0 09/28/2014 PROT 6.1* 09/27/2014 ALB 3.6 09/27/2014 GLOB 2.5 09/27/2014 BILITOT 0.9 09/27/2014 ALP 72 09/27/2014 AST 22 09/27/2014 ALT 17 09/27/2014 EGFR >60 09/28/2014 Lab Results Component Value Date INR 2.0 09/28/2014 INR 2.0 09/27/2014 INR 1.1 09/26/2014 Troponin: Lab Results Component Value Date TROPONINI 0.115* 09/25/2014 Lab Results Component Value Date HGBA1C 6.3* 09/25/2014 Results for KIMBERLEE PEGUERO ( ) as of 09/25/2014 17:01 Ref. Range 09/25/2014 04:00 TSH Latest Range: 0.45-5.10 uIU/mL 7.28 (H) ECHO 1. Overall left ventricular systolic function is moderate-severely impaired with, an EF bet ween 30 - 35 %. 2. Restrictive LV diastolic filling pattern, consistent with elevated LA pressure and sever e dysfunction (grade III). 3. Akinesia of the mid-distal anterior wall, distal inferior wall and apex (LAD territory). 4. Severe mitral regurgitation is present. 5. There is moderate pulmonary hypertension. Cardiac cath CONCLUSIONS 1. Non-ST elevation myocardial infarction with severe systolic dysfunction with ejection fraction 30% to 35%, and severe mitral valve regurgitation. 2. 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 3. Intermediate disease in the right coronary artery with negative fractional flow reserve of 0.87. 4. 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 RECOMMENDATIONS 1. Discussed with cardiothoracic surgery the possibility of bypass surgery with targets to the very distal LAD, third obtuse marginal, and mitral valve replacement versus angioplasty for the third obtuse marginal and reevaluation for the severity of the mitral valve regurgitation. 2. Consider having YAQUELIN and viability study for further evaluation. Read by BRYAN CEJA MD 09/25/2014 05:25 P ECHO YAQUELIN 1. Overall left ventricular systolic function is severely impaired with, an EF between 25 - 30 %. 2. The left atrium is markedly dilated. 3. Severe mitral regurgitation is present. 4. The right ventricular systolic pressure, as measured by Doppler, is 44.12mmHg PROBLEM LIST Principal Problem: NSTEMI (non-ST elevated myocardial infarction) Active Problems: New onset a-fib RVR CHF (congestive heart failure) DM (diabetes mellitus) 2 CAD (coronary artery disease) s/p 1 stent HTN (hypertension) Other and unspecified hyperlipidemia Obesity, unspecified SOB (shortness of breath) Legs swelling Elevated brain natriuretic peptide (BNP) level Severe Mitral regurgitation Pulmonary HTN ASSESSMENT & PLAN 1Afib RVR and NSTEMI with acute sys CHF/severe MR i have d/w continue Coumadin ,he asked to load with plavix then 75 mg daily starting tomorrow and ASA.continue BBlocker,c ozaar,statin,lasix. is planning on cardiac cath with intervention possibly on . 2.DM2 stable BG continue home meds except for Metformin due to cardiac cath,monitor BG . 3.HTN stable continue current BP meds and monitor 4.Hyperlipidemia continue statins, reviewed lipid panel. 5.obesity she is counseled on weight loss and life style modification,she understands. 6.GI px Pepcid 7.DVT px Lovenox and SCDs 8.hypoakalemia improved replete via electrolyte protocol and monitor discharge when cleared per cardiology Disposition: Admitted Code Status: Full Code Sherrill Barnes MD 09/28/2014 Sherrill Reed MD - 2014 4:54 PM PDT Progress Notes by Sherrill Barnes MD at 09/27/14 7491 Author: Sherrill Barnes MD Service: Hospitalist Author Type: Physician Filed: 09/27/14 1701 Date of Service: 09/27/141653 Status: Addendum Copy Worker: Sherrill Barnes MD (Physician) Related Notes: Original Note by Sherrill Barnes MD (Physician) filed at 09/27/14 9864 [facility] Service: Hospitalist Progress Note Hospital Day: LOS: 3 days Post-Op Day: * No surgery found * SUBJECTIVE Patient Summary: refer to H&P and consult note for details Events Overnight: Pt seen and examined,she is in NSR ,denies SOB at rest or CP,stable BP.stable H&H,hypokalemia Scheduled Medications aspirin 81 mg Oral Daily with breakfast atorvastatin 40 mg Oral Nightly enoxaparin 1 mg/kg Subcutaneous Q12H ezetimibe 10 mg Oral Daily famotidine 20 mg Oral BID fluticasone 1 puff Inhalation BID furosemide 40 mg Oral Daily glipiZIDE 10 mg Oral Daily [START ON 09/28/2014] losartan 50 mg Oral Daily metoprolol 100 mg Oral Daily saxagliptin 5 mg Oral Daily Continuous Infusions PRN Medications acetaminophen OR acetaminophen, nitroGLYCERIN, ondansetron OR ondansetron, polyethy bebeto glycol, potassium chloride OR potassium chloride OR potassium chloride OR p otassium chloride OR potassium chloride OR potassium chloride, saline lock IV AND* * sodium chloride 0.9 %, zolpidem OBJECTIVE Vital Signs: BP 135/69 | Pulse 71 | Temp(Src) 97.5 F (36.4 C) (Oral) | Resp 16 | Ht 1.549 m (5' 1") | Wt 80.6 kg (177 lb 11.1 oz) | BMI 33.59 kg/m2 | SpO2 99% | ? No General appearance: alert, appears stated age, cooperative, no distress and moderately obes e Head: Normocephalic, without obvious abnormality, atraumatic Neck: no adenopathy, no carotid bruit, no JVD, supple, symmetrical, trachea midline and thy roid not enlarged, symmetric, no tenderness/mass/nodules Lungs: clear breath sounds bibasilar and bilaterally Heart: RRR,systolic murmer Abdomen: soft, non-tender; bowel sounds normal; no masses, no organomegaly Extremities: edema trace lower extremities , atraumatic, no cyanosis. Pulses: 2+ and symmetric Neurologic: AXOX3 ,Grossly normal.did not test gait DATA CBC: Lab Results Component Value Date WBC 8.41 09/27/2014 RBC 4.42 09/27/2014 HGB 13.1 09/27/2014 HCT 39.3 09/27/2014 MCV 88.9 09/27/2014 MCH 29.7 09/27/2014 MCHC 33.4 09/27/2014 RDW 46.4 09/27/2014 PLT 216 09/27/2014 MPV 8.1 09/27/2014 DIFFTYPE AUTOMATED 09/27/2014 CMP: Lab Results Component Value Date NA 138 09/27/2014 K 3.4* 09/27/2014 CL 106 09/27/2014 CO2 25 09/27/2014 ANIONGAP 10 09/27/2014 GLUF 107* 09/27/2014 BUN 10 09/27/2014 CREATININE 0.77 09/27/2014 BCR 13 09/27/2014 CA 9.0 09/27/2014 PROT 6.1* 09/27/2014 ALB 3.6 09/27/2014 GLOB 2.5 09/27/2014 BILITOT 0.9 09/27/2014 ALP 72 09/27/2014 AST 22 09/27/2014 ALT 17 09/27/2014 EGFR >60 09/27/2014 Lab Results Component Value Date INR 2.0 09/27/2014 INR 1.1 09/26/2014 INR 1.1 09/25/2014 Troponin: Lab Results Component Value Date TROPONINI 0.115* 09/25/2014 Lab Results Component Value Date HGBA1C 6.3* 09/25/2014 Results for KIMBERLEE PEUGERO ( ) as of 09/25/2014 17:01 Ref. Range 09/25/2014 04:00 TSH Latest Range: 0.45-5.10 uIU/mL 7.28 (H) ECHO 1. Overall left ventricular systolic function is moderate-severely impaired with, an EF bet ween 30 - 35 %. 2. Restrictive LV diastolic filling pattern, consistent with elevated LA pressure and sever e dysfunction (grade III). 3. Akinesia of the mid-distal anterior wall, distal inferior wall and apex (LAD territory). 4. Severe mitral regurgitation is present. 5. There is moderate pulmonary hypertension. Cardiac cath CONCLUSIONS 1. Non-ST elevation myocardial infarction with severe systolic dysfunction with ejection fraction 30% to 35%, and severe mitral valve regurgitation. 2. 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 3. Intermediate disease in the right coronary artery with negative fractional flow reserve of 0.87. 4. 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 RECOMMENDATIONS 1. Discussed with cardiothoracic surgery the possibility of bypass surgery with targets to the very distal LAD, third obtuse marginal, and mitral valve replacement versus angioplasty for the third obtuse marginal and reevaluation for the severity of the mitral valve regurgitation. 2. Consider having YAQUELIN and viability study for further evaluation. Read by BRYAN CEJA MD 09/25/2014 05:25 P ECHO YAQUELIN 1. Overall left ventricular systolic function is severely impaired with, an EF between 25 - 30 %. 2. The left atrium is markedly dilated. 3. Severe mitral regurgitation is present. 4. The right ventricular systolic pressure, as measured by Doppler, is 44.12mmHg PROBLEM LIST Principal Problem: New onset a-fib RVR Active Problems: CHF (congestive heart failure) DM (diabetes mellitus) 2 CAD (coronary artery disease) s/p 1 stent HTN (hypertension) Other and unspecified hyperlipidemia Obesity, unspecified SOB (shortness of breath) Legs swelling Elevated brain natriuretic peptide (BNP) level NSTEMI (non-ST elevated myocardial infarction) Severe Mitral regurgitation Pulmonary HTN ASSESSMENT & PLAN 1Afib RVR and NSTEMI with acute sys CHF/severe MR i have d/w continue Lovenox 1 mg/kg BID and stop coumadin for now,awaiting [facility]. meds.continue BBlocker,ASA,co zaar,statin,lasix. 2.DM2 stable BG continue home meds except for Metformin due to cardiac cath,monitor BG . 3.HTN stable continue current BP meds and monitor 4.Hyperlipidemia continue statins, reviewed lipid panel. 5.obesity she is counseled on weight loss and life style modification,she understands. 6.GI px Pepcid 7.DVT px Lovenox and SCDs 8.hypoakalemia replete via electrolyte protocol and monitor discharge when cleared per cardiology/CT surgery Disposition: Admitted Code Status: Full Code Sherrill Barnes MD 09/27/2014 onversion Transaction, Provider Unknown - 09/27/2014 10:12 AM PDTFormatting of this note might be different from th e original. Progress Notes by Lisset Boss at 09/27/14 1012 Author: Lisset Boss Service: (none) Author Type: Food Service Lead Filed: 09/27/14 1013 Date of Service: 09/27/14 1012 Status: Signed Copy Worker: Lisset Boss (Labor Expediter) GPS enrolled, Pt would not like assistance scheduling, we will ask her again at time of fir st phone call. ender son, LAURA Potter - 09/26/2014 4:20 PM PDTFormatting of this note might be different fr om the original. Progress Notes by Nadia Lewis PA-C at 09/26/14 1620 Author: Nadia Lewis PA-C Service: Cardiology Author Type: Physician Automation Qa Analyst - Certified Filed: 09/29/14 1130 Date of Service: 09/26/14 1620 Status: Attested Copy Worker: Nadia Lewis PA-C (Physician Automation Qa Analyst - Certified) Related Notes: Original Note by Nadia eLwis PA-C (Physician Automation Qa Analyst - Certified ) filed at 09/28/14 1637 Cosigner: Bryan Ceja MD at 09/29/14 1227 Attestation signed by Bryan Ceja MD at 09/29/14 1227 I saw and examined the patient with Nadia Lewis PA-C. I have reviewed the tests per formed. I agree with the assessment and plan as documented in the note. Bryan Ceja MD 09/29/2014 [facility] Service: Cardiology Progress Note Name of Electric Vehicle Electrician: Bryan Ceja MD I have seen the patient on 09/28/2014 SUBJECTIVE No events overnight. The patient denies chest pain or shortness of breath. Medications were reviewed. OBJECTIVE Vital Signs: BP 116/55 | Pulse 74 | Temp(Src) 97.7 F (36.5 C) (Oral) | Resp 18 | Ht 1.549 m (5' 1") | Wt 80.1 kg (176 lb 9.4 oz) | BMI 33.38 kg/m2 | SpO2 98% | ? No Cardiovascular: Regular rhythm, S1 normal and S2 normal. No murmur heard. Pulses: Radial pulses are 2+ on the right side, and 2+ on the left side. Pulmonary/Chest: Effort normal and breath sounds normal. No wheezes. No rales. Abdominal: Soft. No tenderness. Musculoskeletal: No edema. Neurological: Alert. No cranial nerve deficit. Skin: Warm and dry. DATA Recent Labs Lab 09/28/14 0356 09/25/14 0400 NA 136 < > 137 K 3.6 < > 3.6 CO2 25 < > 24 BUN 11 < > 15 CREATININE 0.77 < > 0.90 MG -- -- 2.1 < > = values in this interval not displayed. Recent Labs Lab 09/28/14 0356 WBC 7.46 HGB 12.9 HCT 39.0 MCV 89.5 PLT 203 EKG: September 25, 2014, reviewed personally, showed sinus rhythm, heart rate 75, left anterior fasc icular block, normal P wave, TN interval. No significant T waves. ST-T segment consistent wi th ischemia, prolonged QT. September 24, 2014, at [facility] reviewed personally and showed atrial fibrillation with rapid ventricular response, heart rate 124, left anterior fascicular block, no signific ant Q waves, ST-T segment consistent with ischemia, not different from the same changes whil e at sinus rhythm. Prolonged QT. Last Echo: September 25, 2014, showed an EF of 30% to 35%. Grade 3 diastolic dysfunction. Akinesia of the mid distal anterior wall, distal inferior wall and apex. Severe mitral regurgitation. Modera te pulmonary hypertension. Last stress test: Last cath: September 25, 2014 - Showed 2-vessel disease including 100% occluded ostial left anterior desce nding artery and mid left circumflex artery, eklutna FFR for the right coronary artery and to jen occlusion of the right subclavian artery. Carotid US: AAA screening: Lower extremity US: OTHERS: Chest x-ray September 24, 2014, reviewed personally and it showed cardiomegaly and vascular con gestion in both lungs consistent with pulmonary edema. ASSESSMENT & PLAN Ms. Peguero is a 78-year-old lady with the following medical conditions: 1. Hypertension. 2. Hypercholesterolemia. 3. Diabetes, on oral hypoglycemic medications. 4. Coronary artery disease with previous stent in 1996. 5. Congestive heart failure. 6. Ex-smoker, she quit in April 2014 after smoking since she was 20 years old, 1 pack ev jose a 2 weeks. Admitted with shortness of breath at rest, found to have congestive heart failure and atria l fibrillation with rapid ventricular response that was treated with IV Cardizem. Converted on IV Cardizem back to sinus rhythm. The patient had an echocardiogram that showed EF 30-35% and severe mitral regurgitation. Sh e underwent left heart catheterization that showed two vessel disease and negative FFR for t he RCA with recommendation for bypass surgery. The patient did have a YAQUELIN which confirmed severe mitral regurgitation. We will await furth er recommendation from CT surgery as to whether they will proceed with bypass surgery and mi tral valve replacement. If she is not a good candidate we will consider revascularization fo r the left circumflex artery and re-evaluation. Code Status: Full Code Nadia Lewis PA-C 09/28/2014 Kelsi Montilla MD - 09/26/2014 4:18 PM PDTFormatting of this note might be different from the or iginal. Progress Notes by Desiree Jean MD at 09/26/14 1498 Author: Desiree Jean MD Service: (none) Author Type: Physician Filed: 09/26/14 5396 Date of Service: 09/26/14 1618 Status: Signed Copy Worker: Desiree Jean MD (Physician) [facility] Service: Hospitalist Progress Note Pt: Kimberlee Peguero AGE/SEX: 78 y.o. female : 1935 ROOM: [id number] REQUESTING PROVIDER: Desiree Jean MD TODAY'S DATE: 09/26/2014 Hospital Day: LOS: 2 days SUBJECTIVE she states no palpitation or chest pain or SOB Scheduled Medications aspirin 81 mg Oral Daily with breakfast atorvastatin 40 mg Oral Nightly enoxaparin 1 mg/kg Subcutaneous Q12H ezetimibe 10 mg Oral Daily famotidine 20 mg Oral BID fentaNYL fluticasone 1 puff Inhalation BID furosemide 40 mg Oral Daily glipiZIDE 10 mg Oral Daily losartan 25 mg Oral Daily metoprolol 100 mg Oral Daily midazolam saxagliptin 5 mg Oral Daily warfarin 5 mg Oral Daily Continuous Infusions PRN Medications acetaminophen OR acetaminophen, nitroGLYCERIN, ondansetron OR ondansetron, polyethy bebeto glycol, saline lock IV AND sodium chloride 0.9 %, zolpidem Allergy: Allergies Allergen Reactions Amoxicillin Other (See Comments) Pt states "I dont know" Azithromycin Other (See Comments) Pt states "I dont know" Clavulanic Acid Other (See Comments) Pt states "I dont know" Clindamycin Other (See Comments) Pt states "I dont know" Penicillins Other (See Comments) Pt states "I dont know" OBJECTIVE Vitals: Patient Vitals for the past 24 hrs: BP Temp Temp src Pulse Resp SpO2 Weight 09/26/14 1609 122/70 mmHg 97.6 F (36.4 C) Oral 76 18 96 % - 09/26/14 1133 106/68 mmHg 97.6 F (36.4 C) Oral 121 16 95 % - 09/26/14 1000 130/85 mmHg - - 110 - 98 % - 09/26/14 0900 120/58 mmHg - - 118 - 94 % - 09/26/14 0833 121/59 mmHg - - 114 16 92 % - 09/26/14 0830 121/59 mmHg - - 94 - 92 % - 09/26/14 0821 121/71 mmHg - - 144 - 95 % - 09/26/14 0820 121/71 mmHg - - 144 - 95 % - 09/26/14 0815 125/70 mmHg - - 88 - 94 % - 09/26/14 0811 142/67 mmHg - - 86 - 95 % - 09/26/14 0810 130/63 mmHg - - - - - - 09/26/14 0805 - - - 128 - 89 % - 09/26/14 0801 167/76 mmHg - - 96 - 95 % - 09/26/14 0800 167/76 mmHg - - 104 - 99 % - 09/26/14 0759 161/90 mmHg - - 112 - 100 % - 09/26/14 0755 161/90 mmHg 97.8 F (36.6 C) Oral 106 20 98 % - 09/26/14 0750 131/75 mmHg - - 88 - 95 % - 09/26/14 0747 122/69 mmHg - - 118 16 99 % - 09/26/14 0745 122/69 mmHg - - 114 - 100 % - 09/26/14 0742 85/57 mmHg - - 88 - 94 % - 09/26/14 0740 85/57 mmHg - - 114 - 95 % - 09/26/14 0533 107/70 mmHg - - 108 - - - 09/26/14 0408 101/63 mmHg 97.8 F (36.6 C) Oral 88 16 92 % 80.5 kg (177 lb 7.5 oz) 09/25/14 2315 116/68 mmHg 98.3 F (36.8 C) Oral 84 16 92 % - 09/25/14 1952 128/75 mmHg 98 F (36.7 C) Oral 79 18 94 % - 09/25/14 1800 117/62 mmHg - - 70 - - - 09/25/14 1746 134/77 mmHg 99.3 F (37.4 C) Oral 72 18 98 % - I&O Detailed Table: Intake/Output Summary (Last 24 hours) at 09/26/14 1619 Last data filed at 09/26/14 1100 Gross per 24 hour Intake 1848.8 ml Output 2200 ml Net -351.2 ml Patient Vitals for the past 96 hrs: Weight 09/26/14 0408 80.5 kg (177 lb 7.5 oz) 09/25/14 0343 81 kg (178 lb 9.2 oz) 09/24/14 2042 81.19 kg (178 lb 15.9 oz) 09/24/14 1606 81.194 kg (179 lb) Hemodynamics Last 24hrs: Review of systems Constitutional- afebril Lung- no cough, no shortness of breath, no wheezing Heart- no chest pain , no palpitation, no shortness of breath Abdomen-no abdominal pain, no reflux issue, no constipation, no diarrha Extremities-no swelling Examination: (nursing notereviewed). Constitutional: oriented to person, place, and time. Appears well-developed and well-taylor shed. HENT: Head: Normocephalic and atraumatic. Mouth/Throat: Oropharynx is clear and moist. Eyes: Conjunctivae and EOM are normal. Pupils are equal, round, and reactive to light. Neck: Normal range of motion. Neck supple. Cardiovascular: Normal rate, 3/6 systolic at LSE+ Pulmonary/Chest: Effort normal and breath sounds + bases reduced Abdominal: Soft. Bowel sounds are normal. Genitourinary: defer Musculoskeletal: exhibits no edema and no tenderness. Neurological: alert and oriented to person, place, and time. No focality Skin: Skin is dr y. Psychiatric: has a normal mood and affect. Behavior is normal. Judgment and thought conten t normal.Cognition intact. LABS: Recent Labs Lab 09/26/1434909/25/1439909/24/14 1615 WBC 7.80 7.72 6.79 HGB 13.5 14.0 14.2 HCT 40.5 43.0 43.7 PLT 215 238 247 NEUTOPHILPCT 69.91 66.49 60.73 MONOPCT 6.60 5.74 6.65 Recent Labs Lab 09/26/14 0350 09/25/14 0400 09/24/14 1615 NA 139 137 143 K 3.5 3.6 3.6 CL 108 105 109 CO2 22* 24 25 BUN 10 15 9 CREATININE 0.68 0.90 0.79 PROT -- -- 7.2 BILITOT -- -- 0.8 ALT -- -- 31 AST -- -- 26 Phosphorus: Recent Labs Lab 09/25/140 PHOS 4.2 Recent Labs Lab 09/25/14 040 MG 2.1 No results for input(s): AMYLASE in the last 168 hours. No results for input(s): PHART, PO2ART, DDO4FKK, C6CZWQVG, BEART in the last 168 hours. Recent Labs Lab 09/26/14 0350 09/25/14 1007 09/25/14 0401 09/25/14 0053 09/24/14 1615 APTT -- 78* 66* 48* 30 INR 1.1 -- 1.1 -- 1.0 Recent Labs Lab 09/25/14 0400 TSH 7.28* FREET4 1.2 Recent Labs Lab 09/25/14 0600 09/25/14 0021 09/24/14 1615 CKTOTAL -- -- 42 TROPONINI 0.115* 0.159* -- CKMBINDEX -- -- 2.6 PROBLEM LIST Principal Problem: New onset a-fib RVR Active Problems: CHF (congestive heart failure) DM (diabetes mellitus) 2 CAD (coronary artery disease) s/p 1 stent HTN (hypertension) Other and unspecified hyperlipidemia Obesity, unspecified SOB (shortness of breath) Legs swelling Elevated brain natriuretic peptide (BNP) level NSTEMI (non-ST elevated myocardial infarction) Severe Mitral regurgitation Pulmonary HTN ASSESSMENT & PLAN Principal Problem: New onset a-fib RVR Active Problems: CHF (congestive heart failure) DM (diabetes mellitus) 2 CAD (coronary artery disease) s/p 1 stent HTN (hypertension) Other and unspecified hyperlipidemia Obesity, unspecified SOB (shortness of breath) Legs swelling Elevated brain natriuretic peptide (BNP) level NSTEMI (non-ST elevated myocardial infarction) Severe Mitral regurgitation Pulmonary HTN Afib RVR - now in sinus with rate control on betablocker TSH review FT4 normal suspect euthyroid sick issue with recent event need recheck in 3-4 w [place] as out patient on anticoagulation lovenox with coumadin INR 1.1 today F/ up INR in am NSTEMI with acute sys CHF Had cardiac raisa on Non-ST elevation myocardial infarction with severe systolic dysfunction with ejection fraction 30% to 35%, and severe mitral valve regurgitation.. 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 YAQUELIN Review F/ up fabricator special items recommendation on ASA Statin lasix betablocker and SHEILA .DM2 On onglyza and glyburide stable BS .HTN stable continue current BP meds and monitor .Hyperlipidemia On Statins, and zietia .GI px Pepcid .DVT On Lovenox and SCDs Desiree Jean MD MD 09/26/2014 4:19 PM onversion Transac tion, Provider Unknown - 09/26/2014 12:17 PM PDTFormatting of this note might be different f rom the original. Case Management by MOLLY Rowley at 09/26/141216 Author: MOLLY Rowley Service: (none) Author Type: Care Tech Filed: 09/26/141217 Date of Service: 09/26/141216 Status: Signed Copy Worker: MOLLY Rowley (Care Tech) Pt is 78 years old and independent at home. Pt is usually able to perform daily living acti vities including personal hygiene, grooming, dressing, feeding, ambulation and bowel and venkatesh dder control. Pt currently has no resource concerns at this time. CM will continue to follow as needed. Discharge Plan: Home. Sp Marty PATEL 09/26/141216 Discharge Planning Evaluation Admitting Diagnosis SOB/palpitations Readmission No Type of Residence Private residence Bathrooms on 1st Floor 1-Full Mental Status Oriented Anticipated Discharge Plan Post Acute Care Needs None at this time Resources Financial concerns No Transportation issues No Patient/Family concerns No Prescription Plan Yes Anticipated Disposition Facility Type Home Met with: Patient and discussed discharge planning, Pt is a 78 y.o., female Patient's PCP is: EVA AN Patient's insurance: Medicare Coverage concerns: None Medication coverage/concerns: None Community resources utilized / needed: None Assistance in transportation: Not needed. Identification of any specific education / training: None Barriers to Discharge / Alternative housing needed: None Anticipated DCP: Home [place] Transaction, Provider Unknown - 09/26/2014 8:33 AM PDT Nurse Progress Note by Taylor Corona RN at 09/26/14832 Author: Taylor Corona RN Service: (none) Author Type: Registered Nurse Filed: 09/26/14834 Date of Service: 09/26/14832 Status: Signed Copy Worker: Taylor Corona RN (Registered Nurse) YAQUELIN done. Pt anne marie well. Versed 3mg iv and fentanyl 50 ug iv given for procedure. Pt arous es easily, vss. Report to Chanel varma. Will cont. To do vs every 15 min as per routine, until fully awake. Taking fluids well with difficulty. [place] [place] Transaction, Provider Unknown - 09/26/2014 5:22 AM PDT Nurse Progress Note by Patria Seals RN at 09/26/14521 Author: Patria Seals RN Service: (none) Author Type: Registered Nurse Filed: 09/26/14650 Date of Service: 09/26/14521 Status: Addendum Copy Worker: Patria Seals RN (Registered Nurse) Related Notes: Original Note by Patria Seals RN (Registered Nurse) filed at 09/26/14 053 2 0520. Pt converted to A-Fib, HR 100-140's. Pt asymptomatic. VSS. Dr. Rubin advised to mo nitor for 30 minutes to 1 hour to see if pt converts back to NS. Will consider digoxin if n ecessary. Will continue to monitor REBECA [place] 0651. Patient's HR is better controlled; A-Fib 80-90's. Pt is scheduled for a YAQUELIN at [address] Rubin advised to continue to monitor and fabricator special items to treat if necessary. [place] [place] Transaction, Provider Unknown - 09/25/2014 9:07 PM PDT Nurse Progress Note by Asuncion Carmona RN at 09/25/142106 Author: Asuncion Carmona RN Service: (none) Author Type: Registered Nurse Filed: 09/25/142107 Date of Service: 09/25/142106 Status: Signed Copy Worker: Asuncion Carmona RN (Registered Nurse) 2044: Pt sat up at bedside, denied SOB, dizziness, or lightheadedness. Pt up with 1 assist to bathroom and back. Pt tolerated well. R groin site looks CDI, no evidence of hematoma or bleeding, will monitor closely. Sherrill Reed MD - 09/25/2014 4:58 PM PDTFormatting of this note might be different from the origi nal. Progress Notes by Sherrill Barnes MD at 09/25/141657 Author: Sherrill Barnes MD Service: Hospitalist Author Type: Physician Filed: 09/25/141712 Date of Service: 09/25/141657 Status: Addendum Copy Worker: Sherrill Barnes MD (Physician) Related Notes: Original Note by Sherrill Barnes MD (Physician) filed at 09/25/141711 [facility] Service: Hospitalist Progress Note Hospital Day: LOS: 1 day Post-Op Day: * No surgery found * SUBJECTIVE Patient Summary: refer to H&P and consult note for details Events Overnight: Pt seen and examined,she is in NSR off Cardizem gtt,denies SOB at r est or CP,mild elevated trop,stable BP.stable H&H on heparin gtt Scheduled Medications aspirin 81 mg Oral Daily with breakfast atorvastatin 40 mg Oral Nightly enoxaparin 1 mg/kg Subcutaneous Q12H ezetimibe 10 mg Oral Daily famotidine 20 mg Oral BID fluticasone 1 puff Inhalation BID furosemide 40 mg Oral Daily glipiZIDE 10 mg Oral Daily losartan 25 mg Oral Daily metoprolol 100 mg Oral Daily saxagliptin 5 mg Oral Daily sodium chloride (PF) 10 mL Intravenous Q8H sodium chloride 0.9 % 10 mL Intravenous Q8H warfarin 5 mg Oral Daily Continuous Infusions adenosine (ADENOSCAN) 1 mg/mL in NS injection (for FFR) Stopped (09/25/141709) PRN Medications acetaminophen OR acetaminophen, fentaNYL, heparin (porcine), lidocaine, nitroGLYCERIN 1 00 mcg/mL, ondansetron OR ondansetron, polyethylene glycol, sodium bicarbonate buffer, v erapamil OBJECTIVE Vital Signs: BP 132/76 | Pulse 75 | Temp(Src) 98.2 F (36.8 C) (Oral) | Resp 16 | Ht 1.549 m (5' 1") | Wt 81 kg (178 lb 9.2 oz) | BMI 33.76 kg/m2 | SpO2 94% | ? No General appearance: alert, appears stated age, cooperative, no distress and moderately obes e Head: Normocephalic, without obvious abnormality, atraumatic Neck: no adenopathy, no carotid bruit, no JVD, supple, symmetrical, trachea midline and thy roid not enlarged, symmetric, no tenderness/mass/nodules Lungs: clear breath sounds bibasilar and bilaterally Heart: RRR,systolic murmer Abdomen: soft, non-tender; bowel sounds normal; no masses, no organomegaly Extremities: edema trace lower extremities , atraumatic, no cyanosis. Pulses: 2+ and symmetric Neurologic: AXOX3 ,Grossly normal.did not test gait DATA CBC: Lab Results Component Value Date WBC 7.72 09/25/2014 RBC 4.80 09/25/2014 HGB 14.0 09/25/2014 HCT 43.0 09/25/2014 MCV 89.5 09/25/2014 MCH 29.1 09/25/2014 MCHC 32.5 09/25/2014 RDW 44.6 09/25/2014 PLT 238 09/25/2014 MPV 8.2 09/25/2014 DIFFTYPE AUTOMATED 09/25/2014 CMP: Lab Results Component Value Date NA 137 09/25/2014 K 3.6 09/25/2014 CL 105 09/25/2014 CO2 24 09/25/2014 ANIONGAP 12 09/25/2014 GLUF 154* 09/25/2014 BUN 15 09/25/2014 CREATININE 0.90 09/25/2014 BCR 17 09/25/2014 CA 9.3 09/25/2014 PROT 7.2 09/24/2014 ALB 3.7 09/24/2014 GLOB 3.5 09/24/2014 BILITOT 0.8 09/24/2014 ALP 104 09/24/2014 AST 26 09/24/2014 ALT 31 09/24/2014 EGFR >60 09/25/2014 Troponin: Lab Results Component Value Date TROPONINI 0.115* 09/25/2014 HDL CHOL Date Value Ref Range Status 09/25/2014 37* >40 mg/dL Final Testing performed at [facility], [facility] [place] [address] Triglycerides Date Value Ref Range Status 09/25/2014 122 <150 mg/dL Final Testing performed at [facility], [facility] [place] [address] LDL CALC Date Value Ref Range Status 09/25/2014 60 <100 mg/dL Final Testing performed at [facility], [address] [place] [address] CHOLESTEROL Date Value Ref Range Status 09/25/2014 121 <200 mg/dL Final Testing performed at [facility], [address] [place] [address] Lab Results Component Value Date HGBA1C 6.3* 09/25/2014 Results for KIMBERLEE PEGUERO ( ) as of 09/25/2014 17:01 Ref. Range 09/25/2014 04:00 TSH Latest Range: 0.45-5.10 uIU/mL 7.28 (H) CXR Impression: 1. CHF with diffuse interstitial and mild central airspace edema. 2. Persistent mild cardiac enlargement. ECHO 1. Overall left ventricular systolic function is moderate-severely impaired with, an EF bet ween 30 - 35 %. 2. Restrictive LV diastolic filling pattern, consistent with elevated LA pressure and sever e dysfunction (grade III). 3. Akinesia of the mid-distal anterior wall, distal inferior wall and apex (LAD territory). 4. Severe mitral regurgitation is present. 5. There is moderate pulmonary hypertension. PROBLEM LIST Principal Problem: New onset a-fib RVR Active Problems: CHF (congestive heart failure) DM (diabetes mellitus) 2 CAD (coronary artery disease) s/p 1 stent HTN (hypertension) Other and unspecified hyperlipidemia Obesity, unspecified SOB (shortness of breath) Legs swelling Elevated brain natriuretic peptide (BNP) level NSTEMI (non-ST elevated myocardial infarction) Severe Mitral regurgitation Pulmonary HTN ASSESSMENT & PLAN 1Afib RVR and possible NSTEMI with acute sys CHF/severe MR i have d/w and consulted dr.alqa molina he will take to cardiac cath today ,stop heparin gtt switch to Lovenox 1 mg/kg BID and s tart coumadin she prefers over newer anticoagulant meds.continue BBlocker,ASA,cozaar,statin, lasix. 2.DM2 stable BG continue home meds except for Metformin for cardiac cath,monitor BG . 3.HTN stable continue current BP meds and monitor 4.Hyperlipidemia continue statins, reviewed lipid panel. 5.obesity she is counseled on weight loss and life style modification,she understands. 6.GI px Pepcid 7.DVT px Lovenox and SCDs 8.elevated TSH will check free T4. Disposition: Admitted Code Status: DNR/DNI Sherrill Barnes MD 09/25/2014 onversion Transaction, Provider Unknown - 09/25/2014 4:10 PM PDTFormatting of this note might be different from th e original. Nurse Progress Note by Sophie Maldonado RN at 09/25/14 1610 Author: Sophie Maldonado RN Service: (none) Author Type: Registered Nurse Filed: 09/25/14 1720 Date of Service: 09/25/14 1610 Status: Signed Copy Worker: Sophie Maldonado RN (Registered Nurse) Pt off the floor to electrical laboratory technician for angiogram. Bilateral groin prepped. NPO since 104. Report given to REBECA Bhakta w/ electrical laboratory technician. [place] [place] Transaction, Provider Unknown - 09/25/2014 1:12 PM PDT Progress Notes by Jayda Blue RD at 09/25/14 1312 Author: Jayda Blue RD Service: (none) Author Type: Registered Dietitian Filed: 09/25/14 1312 Date of Service: 09/25/14 1312 Status: Signed Copy Worker: Jayda Blue RD (Registered Dietitian) 09/25/14 1256 Subjective Timepoint Admit (wt loss) Pt c/o Pt reports food not tasting good x1 day prior to admit. Quit working in June and has been losing wt gradually since. Pt reports BG levels at home have been in the 120 s-180s. Reports BG used to run over 230s. Diet Experience Self-selected diet(s) followed Pt reports that she has a good appetite at home. Has been t rying to stay away from oily, greasy foods. Eating more fruits, veggies and salads. Food Intake Amount of Food Ate 50% of oatmeal and 100% of toast this morning. Type of Food / Meals Cardiac diabetic 1800 kcal Nutrition-Focused Physical Findings Digestive System (Mouth to Rectum) Pt reports occasional constipation. Denies chewing or s wallowing issues, nausea or vomiting. Anthropometrics Weight change Pt reports a 16# wt loss over past 10 months. Pt reports unintentional wt lo ss. Explained that diet changes could be reason for wt loss. Biochemical data, medical tests, and procedures reviewed Biochemical data, medical tests, and procedures reviewed A1c 6.3% consistant with pt report s of better BG control. Estimated Energy Needs Total Energy Estimated Needs 7202-9756 kcals Method for Estimating Needs 25-30 kcal/kg using ABW of 56 kg Estimated Protein Needs Total Protein Estimated Needs 56-67 gms Method for Estimating Needs 1.0-1.2 gm pro/kg Recommendations Recommended energy needs Continue diet as ordered. Monitor po intake. Nutritional Risk Nutritional risk Low / moderate Follow up date 10/01/14 [place] [place] Transaction, Provider Unknown - 09/25/2014 5:44 AM PDT Nurse Progress Note by Rosanne Tidwell RN at 09/25/14543 Author: Rosanne Tidwell RN Service: (none) Author Type: Registered Nurse Filed: 09/25/1448 Date of Service: 09/25/14543 Status: Signed Copy Worker: Rosanne Tidwell RN (Registered Nurse) Pt was started on cardizem gtt in ED d/t afib. Pt converted to NSR, HR and BP started decre asing, BP 90's/506s HR 58-62, Cardizem gtt was stopped at 0211, Recent VS HR 67 BP 109/58. P t also started on Heparin gtt d/t increased risk of CVA per MD. Last PTT 66, within therapeu tic range.Pt slept on and off through night no signs of distress. Will continue to monitor p t. And pass report to oncoming nurse. Rosanne Tidwell RN onver [place] Transaction, Provider Unknown - 09/24/2014 8:39 PM PDT Progress Notes by Wayne Zhang RPH at 09/24/142038 Author: Wayne Zhang RPH Service: (none) Author Type: Pharmacist Filed: 09/24/142038 Date of Service: 09/24/142038 Status: Signed Copy Worker: Wayne Zhang RPH (Pharmacist) Note ccl 58.5ml/min meds reviewed Pharmacy will follow [facility] 2038 docume nted in this encounter Plan of Treatment Not on filedocumented as of this encounter Procedures + +--------+ + + + | Procedure Name | Priori | Date/Time | Associated Diagnosis | Comments | | | ty | | | | + +--------+ + + + | ECG 12 LEAD | Routin | 10/01/2014 | | Results for this | | | e | 5:12 AM | | procedure are in the | | | | PDT | | results section. | + +--------+ + + + | EXTERNAL LAB: CBC | Routin | 10/01/2014 | | Results for this | | | e | 3:40 AM | | procedure are in the | | | | PDT | | results section. | + +--------+ + + + | PROTIME INR | Routin | 10/01/2014 | | Results for this | | | e | 3:40 AM | | procedure are in the | | | | PDT | | results section. | + +--------+ + + + | BASIC METABOLIC | Routin | 10/01/2014 | | Results for this | | PANEL | e | 3:40 AM | | procedure are in the | | | | PDT | | results section. | + +--------+ + + + | ECG 12 LEAD | Routin | 09/30/2014 | | Results for this | | | e | 9:44 AM | | procedure are in the | | | | PDT | | results section. | + +--------+ + + + | CV CARDIAC PROCEDURE | Routin | 09/30/2014 | | Results for this | | | e | 9:00 AM | | procedure are in the | | | | PDT | | results section. | + +--------+ + + + | ACTIVATED CLOTTING | Routin | 09/30/2014 | | Results for this | | TIME | e | 8:05 AM | | procedure are in the | | | | PDT | | results section. | + +--------+ + + + | EXTERNAL LAB: CBC | Routin | 09/30/2014 | | Results for this | | | e | 3:58 AM | | procedure are in the | | | | PDT | | results section. | + +--------+ + + + | PROTIME INR | Routin | 09/30/2014 | | Results for this | | | e | 3:58 AM | | procedure are in the | | | | PDT | | results section. | + +--------+ + + + | BASIC METABOLIC | Routin | 09/30/2014 | | Results for this | | PANEL | e | 3:58 AM | | procedure are in the | | | | PDT | | results section. | + +--------+ + + + | EXTERNAL LAB: CBC | Routin | 09/29/2014 | | Results for this | | | e | 3:44 AM | | procedure are in the | | | | PDT | | results section. | + +--------+ + + + | PROTIME INR | Routin | 09/29/2014 | | Results for this | | | e | 3:44 AM | | procedure are in the | | | | PDT | | results section. | + +--------+ + + + | BASIC METABOLIC | Routin | 09/29/2014 | | Results for this | | PANEL | e | 3:44 AM | | procedure are in the | | | | PDT | | results section. | + +--------+ + + + | EXTERNAL LAB: MINERVA | Routin | 09/28/2014 | | Results for this | | | e | 3:56 AM | | procedure are in the | | | | PDT | | results section. | + +--------+ + + + | PROTIME INR | Routin | 09/28/2014 | | Results for this | | | e | 3:56 AM | | procedure are in the | | | | PDT | | results section. | + +--------+ + + + | BASIC METABOLIC | Routin | 09/28/2014 | | Results for this | | PANEL | e | 3:56 AM | | procedure are in the | | | | PDT | | results section. | + +--------+ + + + | EXTERNAL LAB: MINERVA | Routin | 09/27/2014 | | Results for this | | | e | 4:32 AM | | procedure are in the | | | | PDT | | results section. | + +--------+ + + + | PROTIME INR | Routin | 09/27/2014 | | Results for this | | | e | 4:32 AM | | procedure are in the | | | | PDT | | results section. | + +--------+ + + + | COMPREHENSIVE | Routin | 09/27/2014 | | Results for this | | METABOLIC PANEL | e | 4:32 AM | | procedure are in the | | | | PDT | | results section. | + +--------+ + + + | ECHO TRANSESOPHAGEAL | Routin | 09/26/2014 | | Results for this | | (YAQUELIN) | e | 8:30 AM | | procedure are in the | | | | PDT | | results section. | + +--------+ + + + | ECG 12 LEAD | Routin | 09/26/2014 | | Results for this | | | e | 6:03 AM | | procedure are in the | | | | PDT | | results section. | + +--------+ + + + | EXTERNAL LAB: CBC | Routin | 09/26/2014 | | Results for this | | | e | 3:50 AM | | procedure are in the | | | | PDT | | results section. | + +--------+ + + + | PROTIME INR | Routin | 09/26/2014 | | Results for this | | | e | 3:50 AM | | procedure are in the | | | | PDT | | results section. | + +--------+ + + + | BASIC METABOLIC | Routin | 09/26/2014 | | Results for this | | PANEL | e | 3:50 AM | | procedure are in the | | | | PDT | | results section. | + +--------+ + + + | ECG 12 LEAD | Routin | 09/25/2014 | | Results for this | | | e | 7:13 PM | | procedure are in the | | | | PDT | | results section. | + +--------+ + + + | CV VASCULAR | Routin | 09/25/2014 | | Results for this | | PROCEDURE | e | 5:28 PM | | procedure are in the | | | | PDT | | results section. | + +--------+ + + + | CV CARDIAC PROCEDURE | Routin | 09/25/2014 | | Results for this | | | e | 5:28 PM | | procedure are in the | | | | PDT | | results section. | + +--------+ + + + | CV CARDIAC PROCEDURE | Routin | 09/25/2014 | | Results for this | | | e | 5:28 PM | | procedure are in the | | | | PDT | | results section. | + +--------+ + + + | ACTIVATED CLOTTING | Routin | 09/25/2014 | | Results for this | | TIME | e | 5:05 PM | | procedure are in the | | | | PDT | | results section. | + +--------+ + + + | ECG 12 LEAD | Routin | 09/25/2014 | | Results for this | | | e | 11:53 AM | | procedure are in the | | | | PDT | | results section. | + +--------+ + + + | ECHO COMPLETE | Routin | 09/25/2014 | | Results for this | | | e | 10:57 AM | | procedure are in the | | | | PDT | | results section. | + +--------+ + + + | PTT | Routin | 09/25/2014 | | Results for this | | | e | 10:07 AM | | procedure are in the | | | | PDT | | results section. | + +--------+ + + + | XR CHEST 1 VIEW | Routin | 09/25/2014 | | Results for this | | | e | 6:43 AM | | procedure are in the | | | | PDT | | results section. | + +--------+ + + + | TROPONIN I | Routin | 09/25/2014 | | Results for this | | | e | 6:00 AM | | procedure are in the | | | | PDT | | results section. | + +--------+ + + + | PTT | Routin | 09/25/2014 | | Results for this | | | e | 4:01 AM | | procedure are in the | | | | PDT | | results section. | + +--------+ + + + | PROTIME INR | Routin | 09/25/2014 | | Results for this | | | e | 4:01 AM | | procedure are in the | | | | PDT | | results section. | + +--------+ + + + | EXTERNAL LAB: CBC | Routin | 09/25/2014 | | Results for this | | | e | 4:00 AM | | procedure are in the | | | | PDT | | results section. | + +--------+ + + + | LIPID PANEL | Routin | 09/25/2014 | | Results for this | | | e | 4:00 AM | | procedure are in the | | | | PDT | | results section. | + +--------+ + + + | TSH | Routin | 09/25/2014 | | Results for this | | | e | 4:00 AM | | procedure are in the | | | | PDT | | results section. | + +--------+ + + + | T4, FREE | Routin | 09/25/2014 | | Results for this | | | e | 4:00 AM | | procedure are in the | | | | PDT | | results section. | + +--------+ + + + | PHOSPHORUS | Routin | 09/25/2014 | | Results for this | | | e | 4:00 AM | | procedure are in the | | | | PDT | | results section. | + +--------+ + + + | B TYPE NATRIURETIC | Routin | 09/25/2014 | | Results for this | | PEPTIDE | e | 4:00 AM | | procedure are in the | | | | PDT | | results section. | + +--------+ + + + | MAGNESIUM | Routin | 09/25/2014 | | Results for this | | | e | 4:00 AM | | procedure are in the | | | | PDT | | results section. | + +--------+ + + + | HEMOGLOBIN A1C | Routin | 09/25/2014 | | Results for this | | | e | 4:00 AM | | procedure are in the | | | | PDT | | results section. | + +--------+ + + + | BASIC METABOLIC | Routin | 09/25/2014 | | Results for this | | PANEL | e | 4:00 AM | | procedure are in the | | | | PDT | | results section. | + +--------+ + + + | PTT | Routin | 09/25/2014 | | Results for this | | | e | 12:53 AM | | procedure are in the | | | | PDT | | results section. | + +--------+ + + + | TROPONIN I | Routin | 09/25/2014 | | Results for this | | | e | 12:21 AM | | procedure are in the | | | | PDT | | results section. | + +--------+ + + + | URINALYSIS WITH | Routin | 09/24/2014 | | Results for this | | MICROSCOPIC WITH | e | 10:54 PM | | procedure are in the | | CULTURE IF INDICATED | | PDT | | results section. | + +--------+ + + + | CULTURE, URINE | Routin | 09/24/2014 | | Results for this | | | e | 10:54 PM | | procedure are in the | | | | PDT | | results section. | + +--------+ + + + | HISTORICAL LAB PANEL | Routin | 09/24/2014 | | Results for this | | RESULT | e | 4:15 PM | | procedure are in the | | | | PDT | | results section. | + +--------+ + + + | B TYPE NATRIURETIC | Routin | 09/24/2014 | | Results for this | | PEPTIDE | e | 4:15 PM | | procedure are in the | | | | PDT | | results section. | + +--------+ + + + | XR CHEST 2 VIEWS | Routin | 09/24/2014 | | Results for this | | | e | 4:09 PM | | procedure are in the | | | | PDT | | results section. | + +--------+ + + + | ECG 12 LEAD | Routin | 09/24/2014 | | Results for this | | | e | 4:06 PM | | procedure are in the | | | | PDT | | results section. | + +--------+ + + + documented in this encounter Results ECG 12 lead (10/01/2014 5:12 AM PDT) + + + + + + | Component | Value | Ref Range | Performed | Pathologist | | | | | At | Signature | + + + + + + | DIAGNOSIS: | Normal sinus rhythmLeft | | EXTERNAL | | | | axis | | LAB | | | | deviationNon-specific | | | | | | intra-ventricular | | | | | | conduction delayST & T | | | | | | wave abnormality, | | | | | | consider anterolateral | | | | | | ischemiaAbnormal ECGWhen | | | | | | compared with ECG of | | | | | | 30-SEP-2014 09:44,No | | | | | | significant change was | | | | | | foundConfirmed by | | | | | | Arian Alcazar ([id number]) | | | | | | on 10/01/2014 6:16:52 PM | | | | + + + + + + + + | Specimen | + + | | + + + + + | Narrative | Performed At | + + + | Historically converted procedure from [facility] | EXTERNAL LAB | + + + + +---------+ + + | Performing | Address | City/State/Zipcode | Phone Number | | Organization | | | | + +---------+ + + | EXTERNAL LAB | | | | + +---------+ + + Protime INR (10/01/2014 3:40 AM PDT) + + + + + + | Component | Value | Ref Range | Performed | Pathologist | | | | | At | Signature | + + + + + + | INR | 3.7Comment: REFERENCE | | EXTERNAL | | | | RANGE:0.9 - 1.2 | | LAB | | | | NON-ANTICOAGULATED2.0 | | | | | | - 3.0 ALL OTHER | | | | | | THERAPEUTIC | | | | | | INDICATIONS2.5 - 3.5 | | | | | | MECHANICAL HEART VALVES, | | | | | | RECURRENT OR SYSTEMIC | | | | | | EMBOLISMTesting | | | | | | performed at [facility] [place];[facility] | | | | | | [address];[place], [place] | | | | | | [address] | | | | + + + + + + + + | Specimen | + + | Blood specimen | | (specimen) | + + + +---------+ + + | Performing | Address | City/State/Zipcode | Phone Number | | Organization | | | | + +---------+ + + | EXTERNAL LAB | | | | + +---------+ + + External Lab: CBC (10/01/2014 3:40 AM PDT) + + + + + + | Component | Value | Ref Range | Performed | Pathologist | | | | | At | Signature | + + + + + + | WBC | 7.94Comment: Testing | 3.80 - 11.00 | EXTERNAL | | | | performed at [facility], [address] | K/uL | LAB | | | | [address], | | | | | | [place] [address] | | | | + + + + + + | Red Blood | 4.41Comment: Testing | 3.70 - 5.10 | EXTERNAL | | | Cells | performed at [facility], [address] | M/uL | LAB | | | Counted | [address], | | | | | | [place] [address] | | | | + + + + + + | Hemoglobin | 13.0Comment: Testing | 11.3 - 15.5 | EXTERNAL | | | | performed at [facility], [address] | g/dL | LAB | | | | [address], | | | | | | [place] [address] | | | | + + + + + + | Hematocrit, | 39.2Comment: Testing | 34.0 - 46.0 % | EXTERNAL | | | POC | performed at [facility], [address] | | LAB | | | | [address], | | | | | | [place] [address] | | | | + + + + + + | MCV | 89.0Comment: Testing | 80.0 - 100.0 fl | EXTERNAL | | | | performed at [facility], [address] | | LAB | | | | [address], | | | | | | [place] [address] | | | | + + + + + + | MCH | 29.5Comment: Testing | 27.0 - 34.0 pg | EXTERNAL | | | | performed at [facility], [address] | | LAB | | | | [address], | | | | | | [place] [address] | | | | + + + + + + | MCHC | 33.1Comment: Testing | 32.0 - 35.5 | EXTERNAL | | | | performed at [facility], [address] | g/dL | LAB | | | | [address], | | | | | | [place] [address] | | | | + + + + + + | RDW-CV | 45.5Comment: Testing | 37 - 53 fl | EXTERNAL | | | | performed at [facility], [address] | | LAB | | | | [address], | | | | | | [place] [address] | | | | + + + + + + | Platelet | 229Comment: Testing | 150 - 400 K/uL | EXTERNAL | | | Count | performed at [facility], [address] | | LAB | | | Plasma | [address], | | | | | | [place] [address] | | | | + + + + + + | MPV | 8.4Comment: Testing | fl | EXTERNAL | | | | performed at [facility], [address] | | LAB | | | | [address], | | | | | | [place] [address] | | | | + + + + + + | Differentia | AUTOMATEDComment: | | EXTERNAL | | | l Type | Testing performed at | | LAB | | | | [facility], [address] | | | | | | [place] | | | | | | [address] | | | | + + + + + + | % Segmented | 69.84Comment: Testing | % | EXTERNAL | | | | performed at [facility], [address] | | LAB | | | Neutrophils | [address], | | | | | | [place] [address] | | | | + + + + + + | % | 17.71Comment: Testing | % | EXTERNAL | | | Lymphocytes | performed at [facility], [address] | | LAB | | | | [address], | | | | | | [place] [address] | | | | + + + + + + | % Monocytes | 7.47Comment: Testing | % | EXTERNAL | | | | performed at [facility], [address] | | LAB | | | | [address], | | | | | | [place] [address] | | | | + + + + + + | % | 4.22Comment: Testing | % | EXTERNAL | | | Eosinophils | performed at [facility], [address] | | LAB | | | | [address], | | | | | | [place] [address] | | | | + + + + + + | % Basophils | 0.76Comment: Testing | % | EXTERNAL | | | | performed at [facility], [address] | | LAB | | | | [address], | | | | | | [place] [address] | | | | + + + + + + | Absolute | 5.55Comment: Testing | 1.90 - 7.40 | EXTERNAL | | | Segmented | performed at [facility], [address] | K/uL | LAB | | | Neutrophils | [address], | | | | | | [place] [address] | | | | + + + + + + | Absolute | 1.41Comment: Testing | 1.00 - 3.90 | EXTERNAL | | | Lymphocytes | performed at [facility], [address] | K/uL | LAB | | | | [address], | | | | | | [place] [address] | | | | + + + + + + | Absolute | 0.59Comment: Testing | 0.00 - 0.80 | EXTERNAL | | | Monocytes | performed at [facility], [address] | K/uL | LAB | | | | [address], | | | | | | [place] [address] | | | | + + + + + + | Absolute | 0.34Comment: Testing | 0.00 - 0.50 | EXTERNAL | | | Eosinophils | performed at [facility], [address] | K/uL | LAB | | | | [address], | | | | | | [place] [address] | | | | + + + + + + | Absolute | 0.06Comment: Testing | 0.00 - 0.10 | EXTERNAL | | | Basophils | performed at [facility], [address] | K/uL | LAB | | | | [address], | | | | | | [place] [address] | | | | + + + + + + + + | Specimen | + + | Blood specimen | | (specimen) | + + + +---------+ + + | Performing | Address | City/State/Zipcode | Phone Number | | Organization | | | | + +---------+ + + | EXTERNAL LAB | | | | + +---------+ + + Basic Metabolic Panel (10/01/2014 3:40 AM PDT) + + + + + + | Component | Value | Ref Range | Performed | Pathologist | | | | | At | Signature | + + + + + + | Na | 135Comment: Testing | 135 - 143 | EXTERNAL | | | | performed at [facility], [address] | mmol/L | LAB | | | | [address], | | | | | | [place] [address] | | | | + + + + + + | K | 3.7Comment: Testing | 3.5 - 4.9 | EXTERNAL | | | | performed at [facility], [address] | mmol/L | LAB | | | | [address], | | | | | | [place] [address] | | | | + + + + + + | Cl | 107Comment: Testing | 99 - 109 mmol/L | EXTERNAL | | | | performed at [facility], [address] | | LAB | | | | [address], | | | | | | [place] [address] | | | | + + + + + + | CO2 | 29Comment: Testing | 23 - 32 mmol/L | EXTERNAL | | | | performed at [facility], [address] | | LAB | | | | [address], | | | | | | [place] [address] | | | | + + + + + + | Anion Gap | 3 (L)Comment: Testing | 5 - 20 mmol/L | EXTERNAL | | | | performed at [facility], [address] | | LAB | | | | [address], | | | | | | [place] [address] | | | | + + + + + + | Glucose, | 96Comment: Testing | 65 - 99 mg/dL | EXTERNAL | | | Fasting | performed at [facility], [address] | | LAB | | | | [address], | | | | | | [place] [address] | | | | + + + + + + | BUN | 13Comment: Testing | 8 - 25 mg/dL | EXTERNAL | | | | performed at [facility], [address] | | LAB | | | | [address], | | | | | | [place] [address] | | | | + + + + + + | Creatinine | 0.77Comment: Testing | 0.50 - 1.00 | EXTERNAL | | | | performed at [facility], [address] | mg/dL | LAB | | | | [address], | | | | | | [place] [address] | | | | + + + + + + | BUN/Creatin | 17Comment: Testing | | EXTERNAL | | | ine Ratio | performed at [facility], [address] | | LAB | | | | [address], | | | | | | [place] [address] | | | | + + + + + + | Calcium | 9.4Comment: Testing | 8.5 - 10.5 | EXTERNAL | | | | performed at [facility], [address] | mg/dL | LAB | | | | [address] [facility], | | | | | | [place] [address] | | | | + + + + + + | Estimated | >60Comment: GFR <60: | mL/min/1.73m2 | EXTERNAL | | | GFR | CHRONIC KIDNEY DISEASE, | | LAB | | | | IF FOUND OVER A 3 MONTH | | | | | | PERIOD.GFR <15: KIDNEY | | | | | | FAILURE.FOR | | | | | | AMERICANS, MULTIPLY THE | | | | | | CALCULATED GFR BY | | | | | | 1.210.Testing performed | | | | | | at [facility], [address] | | | | | | [address] [facility], | | | | | | [place] [address] | | | | + + + + + + + + | Specimen | + + | Blood specimen | | (specimen) | + + + +---------+ + + | Performing | Address | City/State/Zipcode | Phone Number | | Organization | | | | + +---------+ + + | EXTERNAL LAB | | | | + +---------+ + + ECG 12 lead (09/30/2014 9:44 AM PDT) + + + + + + | Component | Value | Ref Range | Performed | Pathologist | | | | | At | Signature | + + + + + + | DIAGNOSIS: | Normal sinus | | EXTERNAL | | | | rhythmNon-specific | | LAB | | | | intra-ventricular | | | | | | conduction delayST & T | | | | | | wave abnormality, | | | | | | consider anterolateral | | | | | | ischemiaAbnormal ECGWhen | | | | | | compared with ECG of | | | | | | 26-SEP-2014 06:03,Sinus | | | | | | rhythm has replaced | | | | | | Atrial fibrillationVent. | | | | | | rate has decreased BY | | | | | | 37 BPMT wave inversion | | | | | | more evident in | | | | | | Anterior leadsConfirmed | | | | | | by Arian Alcazar | | | | | | ([id number]) on 09/30/2014 | | | | | | 9:02:32 PM | | | | + + + + + + + + | Specimen | + + | | + + + + + | Narrative | Performed At | + + + | [facility] | EXTERNAL LAB | + + + + +---------+ + + | Performing | Address | City/State/Zipcode | Phone Number | | Organization | | | | + +---------+ + + | EXTERNAL LAB | | | | + +---------+ + + CV CARDIAC PROCEDURE (09/30/2014 9:00 AM PDT) + + | Specimen | + + | | + + + + + | Narrative | Performed At | + + + | | | | | | | PROCEDURE Angioplasty for the mid left circumflex artery through the | | | left radial artery using 1 drug-eluting stent Promus Premier 3 x 38 | | | mm. HISTORY Ms. Peguero is a 78-year-old lady who was admitted with | | | congestive heart failure with known history of coronary artery | | | disease, found to have also paroxysmal atrial fibrillation, EF | | | estimated to show 25% to 30% with severe mitral valve regurgitation. | | | Cardiac catheterization showed 2-vessel disease with total occlusion | | | of the LAD that reconstitutes very distally around the apex, and | | | negative FFR of the RCA, and significant disease in the left | | | circumflex artery. She was evaluated for possible bypass surgery and | | | mitral valve replacement, thought to be at high risk for surgery and | | | not a good candidate, and so she was referred back for angioplasty for | | | the left circumflex artery. DESCRIPTION OF PROCEDURE The | | | procedure details, alternatives, and complications were explained for | | | the patient. Informed consent was obtained. Patient was brought to | | | the room and prepped in sterile fashion. Time out was performed. | | | Conscious sedation administered by independent observer. The left | | | wrist was anesthetized with 1% lidocaine. 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 The | | | left radial artery cannulized with 6-Turkmen Slender sheath, 2.5 mg | | | verapamil, 200 mcg nitroglycerin, and 5000 international units | | | heparin given through the sheath. Over a 260 exchange wire a | | | 6-Turkmen XB3.5 guide advanced to the ascending aorta, selectively | | | engaging the left main. Contrast was injected. Selective angiograms | | | for the left main, LAD, and left circumflex artery were performed in | | | different views. Patient was given IV heparin to have an ACT more | | | than 200. Of note, the patient was preloaded with Plavix 2 days ago. | | | A BMW universal wire was advanced down to the third obtuse | | | marginal. The mid left circumflex artery stenosis was predilated | | | using an Emerge 2.75 x 15 mm at 12 atmospheres. I removed the balloon | | | and I tried to advance the stent Promus Premier 3 x 38 mm but I | | | could not advance beyond the mid left circumflex artery, so I removed | | | the stent. I advanced the balloon again, the Emerge 2.75 x 15 mm. I | | | did further dilatation. I removed the balloon. I tried to advance the | | | stent again, with no success. I removed the stent and then I | | | advanced a short Prowater Flex wire with a BMW universal wire as a | | | donte wire. I tried to advance the stent over the BMW wire, with no | | | success. I removed the stent and then I advanced an NC Quantum 2.75 x | | | 12 mm balloon over the BMW wire and I did predilatation further with | | | the balloon at 18 atmospheres. I removed the balloon and then I was | | | able to advance the stent over the BMW wire to the appropriate | | | position. I removed the Prowater Flex wire. I dilated the stent at 12 | | | atmospheres. Stent balloon was removed, and the stent was | | | postdilated using an NC Quantum 3 x 20 mm at 20 atmospheres. The | | | balloon and wire were removed. Final angiogram was done, showing good | | | angiographic results and no complications. Over wire the guide was | | | removed, sheath was removed, TR Band was applied with good | | | hemostasis. Patient was transferred back to the room in a stable | | | condition. FINDINGS HEMODYNAMICS Systemic pressure 104/57. | | | ANGIOGRAM 1. Left main normal size, no significant stenosis. 2. | | | LAD is 100% occluded. 3. Left circumflex artery is 90% stenosis in | | | the mid portion as known from before. 4. First obtuse marginal high | | | takeoff, tiny, no significant stenosis. Second obtuse marginal small, | | | no significant stenosis. Third obtuse marginal normal size, no | | | significant stenosis. CONTRAST USED 100 mL. COMPLICATIONS | | | None. ESTIMATED BLOOD LOSS Less than 20 mL. CONCLUSIONS | | | Successful angioplasty for the mid left circumflex artery with Promus | | | Premier 3 x 38 mm. RECOMMENDATIONS 1. Aspirin 81 mg | | | indefinitely. 2. Plavix 75 mg for 1 year. 3. Continue the Coumadin | | | for the atrial fibrillation with a target INR 2 to 2.5. 4. | | | Reevaluate the ejection fraction and the mitral valve regurgitation in | | | 1 to 2 months for evaluation for the need of any further | | | percutaneous management of the mitral valve regurgitation and the | | | need for an AICD. Read by BRYAN CEJA MD 09/30/2014 09:06 A | | | | | + + + + + | Procedure Note | + + | Pineda Gomez - 02/04/2019 2:44 PM PDT | | | | PROCEDURE | | Angioplasty for the mid left circumflex artery through the left radial | | artery using 1 drug-eluting stent Promus Premier 3 x 38 mm. | | | | HISTORY | | Ms. Peguero is a 78-year-old lady who was admitted with congestive heart | | failure with known history of coronary artery disease, found to have also | | paroxysmal atrial fibrillation, EF estimated to show 25% to 30% with | | severe mitral valve regurgitation. Cardiac catheterization showed 2-vessel | | disease with total occlusion of the LAD that reconstitutes very distally | | around the apex, and negative FFR of the RCA, and significant disease in | | the left circumflex artery. She was evaluated for possible bypass surgery | | and mitral valve replacement, thought to be at high risk for surgery and | | not a good candidate, and so she was referred back for angioplasty for the | | left circumflex artery. | | | | DESCRIPTION OF PROCEDURE | | The procedure details, alternatives, and complications were explained for | | the patient. Informed consent was obtained. Patient was brought to the | | room and prepped in sterile fashion. Time out was performed. Conscious | | sedation administered by independent observer. The left wrist was | | anesthetized with 1% lidocaine. The choice of the left wrist was because | | the previous time we tried the right wrist, she was found to have total | | occlusion of the right subclavian artery. The left radial artery | | cannulized with 6-Turkmen Slender sheath, 2.5 mg verapamil, 200 mcg | | nitroglycerin, and 5000 international units heparin given through the | | sheath. | | | | Over a 260 exchange wire a 6-Turkmen XB3.5 guide advanced to the ascending | | aorta, selectively engaging the left main. Contrast was injected. | | Selective angiograms for the left main, LAD, and left circumflex artery | | were performed in different views. Patient was given IV heparin to have an | | ACT more than 200. Of note, the patient was preloaded with Plavix 2 days | | ago. | | | | A BMW universal wire was advanced down to the third obtuse marginal. The | | mid left circumflex artery stenosis was predilated using an Emerge 2.75 x | | 15 mm at 12 atmospheres. I removed the balloon and I tried to advance the | | stent Promus Premier 3 x 38 mm but I could not advance beyond the mid left | | circumflex artery, so I removed the stent. I advanced the balloon again, | | the Emerge 2.75 x 15 mm. I did further dilatation. I removed the balloon. | | I tried to advance the stent again, with no success. I removed the stent | | and then I advanced a short Prowater Flex wire with a BMW universal wire | | as a donte wire. I tried to advance the stent over the BMW wire, with no | | success. I removed the stent and then I advanced an NC Quantum 2.75 x 12 | | mm balloon over the BMW wire and I did predilatation further with the | | balloon at 18 atmospheres. I removed the balloon and then I was able to | | advance the stent over the BMW wire to the appropriate position. I removed | | the Prowater Flex wire. I dilated the stent at 12 atmospheres. Stent | | balloon was removed, and the stent was postdilated using an NC Quantum 3 x | | 20 mm at 20 atmospheres. The balloon and wire were removed. Final | | angiogram was done, showing good angiographic results and no | | complications. Over wire the guide was removed, sheath was removed, TR | | Band was applied with good hemostasis. Patient was transferred back to the | | room in a stable condition. | | | | FINDINGS | | | | HEMODYNAMICS | | Systemic pressure 104/57. | | | | ANGIOGRAM | | 1. Left main normal size, no significant stenosis. | | 2. LAD is 100% occluded. | | 3. Left circumflex artery is 90% stenosis in the mid portion as known from | | before. | | 4. First obtuse marginal high takeoff, tiny, no significant stenosis. | | Second obtuse marginal small, no significant stenosis. Third obtuse | | marginal normal size, no significant stenosis. | | | | CONTRAST USED | | 100 mL. | | | | COMPLICATIONS | | None. | | | | ESTIMATED BLOOD LOSS | | Less than 20 mL. | | | | CONCLUSIONS | | Successful angioplasty for the mid left circumflex artery with Promus | | Premier 3 x 38 mm. | | | | RECOMMENDATIONS | | 1. Aspirin 81 mg indefinitely. | | 2. Plavix 75 mg for 1 year. | | 3. Continue the Coumadin for the atrial fibrillation with a target INR 2 | | to 2.5. | | 4. Reevaluate the ejection fraction and the mitral valve regurgitation in | | 1 to 2 months for evaluation for the need of any further percutaneous | | management of the mitral valve regurgitation and the need for an AICD. | | | | Read by BRYAN CEJA MD 09/30/2014 09:06 A | | | | | + + Activated clotting time (09/30/2014 8:05 AM PDT) + + + + + + | Component | Value | Ref Range | Performed | Pathologist | | | | | At | Signature | + + + + + + | Activated | 288 (H)Comment: Testing | 74 - 137 | EXTERNAL | | | Clotting | performed at [facility];888 | seconds | LAB | | | time, POC | [address];[place], [place] | | | | | | [address] | | | | + + + + + + + + | Specimen | + + | | + + + +---------+ + + | Performing | Address | City/State/Zipcode | Phone Number | | Organization | | | | + +---------+ + + | EXTERNAL LAB | | | | + +---------+ + + Protime INR (09/30/2014 3:58 AM PDT) + + + + + + | Component | Value | Ref Range | Performed | Pathologist | | | | | At | Signature | + + + + + + | INR | 3.8Comment: REFERENCE | | EXTERNAL | | | | RANGE:0.9 - 1.2 | | LAB | | | | NON-ANTICOAGULATED2.0 | | | | | | - 3.0 ALL OTHER | | | | | | THERAPEUTIC | | | | | | INDICATIONS2.5 - 3.5 | | | | | | MECHANICAL HEART VALVES, | | | | | | RECURRENT OR SYSTEMIC | | | | | | EMBOLISMTesting | | | | | | performed at [facility] | | | | | | [facility];[place], [place] | | | | | | [address] | | | | + + + + + + + + | Specimen | + + | Blood specimen | | (specimen) | + + + +---------+ + + | Performing | Address | City/State/Zipcode | Phone Number | | Organization | | | | + +---------+ + + | EXTERNAL LAB | | | | + +---------+ + + External Lab: CBC (09/30/2014 3:58 AM PDT) + + + + + + | Component | Value | Ref Range | Performed | Pathologist | | | | | At | Signature | + + + + + + | WBC | 7.25Comment: Testing | 3.80 - 11.00 | EXTERNAL | | | | performed at [facility], [address] | K/uL | LAB | | | | [address], | | | | | | [place] [address] | | | | + + + + + + | Red Blood | 4.43Comment: Testing | 3.70 - 5.10 | EXTERNAL | | | Cells | performed at [facility], [address] | M/uL | LAB | | | Counted | [address], | | | | | | [place] [address] | | | | + + + + + + | Hemoglobin | 13.1Comment: Testing | 11.3 - 15.5 | EXTERNAL | | | | performed at [facility], [address] | g/dL | LAB | | | | [address], | | | | | | [place] [address] | | | | + + + + + + | Hematocrit, | 39.8Comment: Testing | 34.0 - 46.0 % | EXTERNAL | | | POC | performed at [facility], [address] | | LAB | | | | [address], | | | | | | [place] [address] | | | | + + + + + + | MCV | 89.7Comment: Testing | 80.0 - 100.0 fl | EXTERNAL | | | | performed at [facility], [address] | | LAB | | | | [address], | | | | | | [place] [address] | | | | + + + + + + | MCH | 29.6Comment: Testing | 27.0 - 34.0 pg | EXTERNAL | | | | performed at [facility], [address] | | LAB | | | | [address], | | | | | | [place] [address] | | | | + + + + + + | MCHC | 33.0Comment: Testing | 32.0 - 35.5 | EXTERNAL | | | | performed at [facility], [address] | g/dL | LAB | | | | [address], | | | | | | [place] [address] | | | | + + + + + + | RDW-CV | 45.9Comment: Testing | 37 - 53 fl | EXTERNAL | | | | performed at [facility], [address] | | LAB | | | | [address], | | | | | | [place] [address] | | | | + + + + + + | Platelet | 231Comment: Testing | 150 - 400 K/uL | EXTERNAL | | | Count | performed at [facility], [address] | | LAB | | | Plasma | [address], | | | | | | [place] [address] | | | | + + + + + + | MPV | 8.3Comment: Testing | fl | EXTERNAL | | | | performed at [facility], [address] | | LAB | | | | [address], | | | | | | [place] [address] | | | | + + + + + + | Differentia | AUTOMATEDComment: | | EXTERNAL | | | l Type | Testing performed at | | LAB | | | | [facility], [address] | | | | | | [place] | | | | | | [address] | | | | + + + + + + | % Segmented | 72.81Comment: Testing | % | EXTERNAL | | | | performed at [facility], [address] | | LAB | | | Neutrophils | [address], | | | | | | [place] [address] | | | | + + + + + + | % | 14.65Comment: Testing | % | EXTERNAL | | | Lymphocytes | performed at [facility], [address] | | LAB | | | | [address], | | | | | | [place] [address] | | | | + + + + + + | % Monocytes | 8.33Comment: Testing | % | EXTERNAL | | | | performed at [facility], [address] | | LAB | | | | [address], | | | | | | [place] [address] | | | | + + + + + + | % | 3.54Comment: Testing | % | EXTERNAL | | | Eosinophils | performed at [facility], [address] | | LAB | | | | [address], | | | | | | [place] [address] | | | | + + + + + + | % Basophils | 0.67Comment: Testing | % | EXTERNAL | | | | performed at [facility], [address] | | LAB | | | | [address], | | | | | | [place] [address] | | | | + + + + + + | Absolute | 5.28Comment: Testing | 1.90 - 7.40 | EXTERNAL | | | Segmented | performed at [facility], [address] | K/uL | LAB | | | Neutrophils | [address], | | | | | | [place] [address] | | | | + + + + + + | Absolute | 1.06Comment: Testing | 1.00 - 3.90 | EXTERNAL | | | Lymphocytes | performed at [facility], [address] | K/uL | LAB | | | | [address], | | | | | | [place] [address] | | | | + + + + + + | Absolute | 0.60Comment: Testing | 0.00 - 0.80 | EXTERNAL | | | Monocytes | performed at [facility], [address] | K/uL | LAB | | | | [address], | | | | | | [place] [address] | | | | + + + + + + | Absolute | 0.26Comment: Testing | 0.00 - 0.50 | EXTERNAL | | | Eosinophils | performed at [facility], [address] | K/uL | LAB | | | | [address], | | | | | | [place] [address] | | | | + + + + + + | Absolute | 0.05Comment: Testing | 0.00 - 0.10 | EXTERNAL | | | Basophils | performed at [facility], [address] | K/uL | LAB | | | | [address], | | | | | | [place] [address] | | | | + + + + + + + + | Specimen | + + | Blood specimen | | (specimen) | + + + +---------+ + + | Performing | Address | City/State/Zipcode | Phone Number | | Organization | | | | + +---------+ + + | EXTERNAL LAB | | | | + +---------+ + + Basic Metabolic Panel (09/30/2014 3:58 AM PDT) + + + + + + | Component | Value | Ref Range | Performed | Pathologist | | | | | At | Signature | + + + + + + | Na | 138Comment: Testing | 135 - 143 | EXTERNAL | | | | performed at [facility], [address] | mmol/L | LAB | | | | [address], | | | | | | [place] [address] | | | | + + + + + + | K | 3.3 (L)Comment: Testing | 3.5 - 4.9 | EXTERNAL | | | | performed at [facility], [address] | mmol/L | LAB | | | | [address], | | | | | | [place] [address] | | | | + + + + + + | Cl | 105Comment: Testing | 99 - 109 mmol/L | EXTERNAL | | | | performed at [facility], [address] | | LAB | | | | [address], | | | | | | [place] [address] | | | | + + + + + + | CO2 | 26Comment: Testing | 23 - 32 mmol/L | EXTERNAL | | | | performed at [facility], [address] | | LAB | | | | [address], | | | | | | [place] [address] | | | | + + + + + + | Anion Gap | 10Comment: Testing | 5 - 20 mmol/L | EXTERNAL | | | | performed at [facility], [address] | | LAB | | | | [address], | | | | | | [place] [address] | | | | + + + + + + | Glucose, | 120 (H)Comment: Testing | 65 - 99 mg/dL | EXTERNAL | | | Fasting | performed at [facility], [address] | | LAB | | | | [address], | | | | | | [place] [address] | | | | + + + + + + | BUN | 16Comment: Testing | 8 - 25 mg/dL | EXTERNAL | | | | performed at [facility], [address] | | LAB | | | | [address], | | | | | | [place] [address] | | | | + + + + + + | Creatinine | 0.92Comment: Testing | 0.50 - 1.00 | EXTERNAL | | | | performed at [facility], [address] | mg/dL | LAB | | | | [address], | | | | | | [place] [address] | | | | + + + + + + | BUN/Creatin | 17Comment: Testing | | EXTERNAL | | | ine Ratio | performed at [facility], [address] | | LAB | | | | [address], | | | | | | [place] [address] | | | | + + + + + + | Calcium | 9.2Comment: Testing | 8.5 - 10.5 | EXTERNAL | | | | performed at [facility], [address] | mg/dL | LAB | | | | [address], | | | | | | [place] [address] | | | | + + + + + + | Estimated | >60Comment: GFR <60: | mL/min/1.73m2 | EXTERNAL | | | GFR | CHRONIC KIDNEY DISEASE, | | LAB | | | | IF FOUND OVER A 3 MONTH | | | | | | PERIOD.GFR <15: KIDNEY | | | | | | FAILURE.FOR | | | | | | AMERICANS, MULTIPLY THE | | | | | | CALCULATED GFR BY | | | | | | 1.210.Testing performed | | | | | | at [facility], [address] | | | | | | [address], | | | | | | [place] [address] | | | | + + + + + + + + | Specimen | + + | Blood specimen | | (specimen) | + + + +---------+ + + | Performing | Address | City/State/Zipcode | Phone Number | | Organization | | | | + +---------+ + + | EXTERNAL LAB | | | | + +---------+ + + Protime INR (09/29/2014 3:44 AM PDT) + + + + + + | Component | Value | Ref Range | Performed | Pathologist | | | | | At | Signature | + + + + + + | INR | 2.1Comment: REFERENCE | | EXTERNAL | | | | RANGE:0.9 - 1.2 | | LAB | | | | NON-ANTICOAGULATED2.0 | | | | | | - 3.0 ALL OTHER | | | | | | THERAPEUTIC | | | | | | INDICATIONS2.5 - 3.5 | | | | | | MECHANICAL HEART VALVES, | | | | | | RECURRENT OR SYSTEMIC | | | | | | EMBOLISMTesting | | | | | | performed at [facility];[address] | | | | | | [facility];[place], [place] | | | | | | [address] | | | | + + + + + + + + | Specimen | + + | Blood specimen | | (specimen) | + + + +---------+ + + | Performing | Address | City/State/Zipcode | Phone Number | | Organization | | | | + +---------+ + + | EXTERNAL LAB | | | | + +---------+ + + External Lab: CBC (09/29/2014 3:44 AM PDT) + + + + + + | Component | Value | Ref Range | Performed | Pathologist | | | | | At | Signature | + + + + + + | WBC | 8.21Comment: Testing | 3.80 - 11.00 | EXTERNAL | | | | performed at [facility], [address] | K/uL | LAB | | | | [address], | | | | | | [place] [address] | | | | + + + + + + | Red Blood | 4.46Comment: Testing | 3.70 - 5.10 | EXTERNAL | | | Cells | performed at [facility], [address] | M/uL | LAB | | | Counted | [address], | | | | | | [place] [address] | | | | + + + + + + | Hemoglobin | 13.2Comment: Testing | 11.3 - 15.5 | EXTERNAL | | | | performed at [facility], [address] | g/dL | LAB | | | | [address], | | | | | | [place] [address] | | | | + + + + + + | Hematocrit, | 39.8Comment: Testing | 34.0 - 46.0 % | EXTERNAL | | | POC | performed at [facility], [address] | | LAB | | | | [address], | | | | | | [place] [address] | | | | + + + + + + | MCV | 89.4Comment: Testing | 80.0 - 100.0 fl | EXTERNAL | | | | performed at [facility], [address] | | LAB | | | | [address], | | | | | | [place] [address] | | | | + + + + + + | MCH | 29.7Comment: Testing | 27.0 - 34.0 pg | EXTERNAL | | | | performed at [facility], [address] | | LAB | | | | [address], | | | | | | [place] [address] | | | | + + + + + + | MCHC | 33.2Comment: Testing | 32.0 - 35.5 | EXTERNAL | | | | performed at [facility], [address] | g/dL | LAB | | | | [address], | | | | | | [place] [address] | | | | + + + + + + | RDW-CV | 46.4Comment: Testing | 37 - 53 fl | EXTERNAL | | | | performed at [facility], [address] | | LAB | | | | [address], | | | | | | [place] [address] | | | | + + + + + + | Platelet | 225Comment: Testing | 150 - 400 K/uL | EXTERNAL | | | Count | performed at [facility], [address] | | LAB | | | Plasma | [address], | | | | | | [place] [address] | | | | + + + + + + | MPV | 8.3Comment: Testing | fl | EXTERNAL | | | | performed at [facility], [address] | | LAB | | | | [address], | | | | | | [place] [address] | | | | + + + + + + | Differentia | AUTOMATEDComment: | | EXTERNAL | | | l Type | Testing performed at | | LAB | | | | [facility], [address] | | | | | | [place] | | | | | | [address] | | | | + + + + + + | % Segmented | 76.31Comment: Testing | % | EXTERNAL | | | | performed at [facility], [address] | | LAB | | | Neutrophils | [address], | | | | | | [place] [address] | | | | + + + + + + | % | 12.61Comment: Testing | % | EXTERNAL | | | Lymphocytes | performed at [facility], [address] | | LAB | | | | [address], | | | | | | [place] [address] | | | | + + + + + + | % Monocytes | 6.78Comment: Testing | % | EXTERNAL | | | | performed at [facility], [address] | | LAB | | | | [address], | | | | | | [place] [address] | | | | + + + + + + | % | 3.71Comment: Testing | % | EXTERNAL | | | Eosinophils | performed at [facility], [address] | | LAB | | | | [address], | | | | | | [place] [address] | | | | + + + + + + | % Basophils | 0.59Comment: Testing | % | EXTERNAL | | | | performed at [facility], [address] | | LAB | | | | [address], | | | | | | [place] [address] | | | | + + + + + + | Absolute | 6.27Comment: Testing | 1.90 - 7.40 | EXTERNAL | | | Segmented | performed at [facility], [address] | K/uL | LAB | | | Neutrophils | [address], | | | | | | [place] [address] | | | | + + + + + + | Absolute | 1.04Comment: Testing | 1.00 - 3.90 | EXTERNAL | | | Lymphocytes | performed at [facility], [address] | K/uL | LAB | | | | [address], | | | | | | [place] [address] | | | | + + + + + + | Absolute | 0.56Comment: Testing | 0.00 - 0.80 | EXTERNAL | | | Monocytes | performed at [facility], [address] | K/uL | LAB | | | | [address], | | | | | | [place] [address] | | | | + + + + + + | Absolute | 0.31Comment: Testing | 0.00 - 0.50 | EXTERNAL | | | Eosinophils | performed at [facility], [address] | K/uL | LAB | | | | [address], | | | | | | [place] [address] | | | | + + + + + + | Absolute | 0.05Comment: Testing | 0.00 - 0.10 | EXTERNAL | | | Basophils | performed at [facility], [address] | K/uL | LAB | | | | [address], | | | | | | [place] [address] | | | | + + + + + + + + | Specimen | + + | Blood specimen | | (specimen) | + + + +---------+ + + | Performing | Address | City/State/Zipcode | Phone Number | | Organization | | | | + +---------+ + + | EXTERNAL LAB | | | | + +---------+ + + Basic Metabolic Panel (09/29/2014 3:44 AM PDT) + + + + + + | Component | Value | Ref Range | Performed | Pathologist | | | | | At | Signature | + + + + + + | Na | 137Comment: Testing | 135 - 143 | EXTERNAL | | | | performed at [facility], [address] | mmol/L | LAB | | | | [address], | | | | | | [place] [address] | | | | + + + + + + | K | 3.6Comment: Testing | 3.5 - 4.9 | EXTERNAL | | | | performed at [facility], [address] | mmol/L | LAB | | | | [address], | | | | | | [place] [address] | | | | + + + + + + | Cl | 105Comment: Testing | 99 - 109 mmol/L | EXTERNAL | | | | performed at [facility], [address] | | LAB | | | | [address], | | | | | | [place] [address] | | | | + + + + + + | CO2 | 25Comment: Testing | 23 - 32 mmol/L | EXTERNAL | | | | performed at [facility], [address] | | LAB | | | | [address], | | | | | | [place] [address] | | | | + + + + + + | Anion Gap | 11Comment: Testing | 5 - 20 mmol/L | EXTERNAL | | | | performed at [facility], [address] | | LAB | | | | [address], | | | | | | [place] [address] | | | | + + + + + + | Glucose, | 90Comment: Testing | 65 - 99 mg/dL | EXTERNAL | | | Fasting | performed at [facility], [address] | | LAB | | | | [address], | | | | | | [place] [address] | | | | + + + + + + | BUN | 11Comment: Testing | 8 - 25 mg/dL | EXTERNAL | | | | performed at [facility], [address] | | LAB | | | | [address], | | | | | | [place] [address] | | | | + + + + + + | Creatinine | 0.75Comment: Testing | 0.50 - 1.00 | EXTERNAL | | | | performed at [facility], [address] | mg/dL | LAB | | | | [address], | | | | | | [place] [address] | | | | + + + + + + | BUN/Creatin | 15Comment: Testing | | EXTERNAL | | | ine Ratio | performed at [facility], [address] | | LAB | | | | [address], | | | | | | [place] [address] | | | | + + + + + + | Calcium | 9.0Comment: Testing | 8.5 - 10.5 | EXTERNAL | | | | performed at [facility], [address] | mg/dL | LAB | | | | [address], | | | | | | [place] [address] | | | | + + + + + + | Estimated | >60Comment: GFR <60: | mL/min/1.73m2 | EXTERNAL | | | GFR | CHRONIC KIDNEY DISEASE, | | LAB | | | | IF FOUND OVER A 3 MONTH | | | | | | PERIOD.GFR <15: KIDNEY | | | | | | FAILURE.FOR | | | | | | AMERICANS, MULTIPLY THE | | | | | | CALCULATED GFR BY | | | | | | 1.210.Testing performed | | | | | | at [facility], [address] | | | | | | [address], | | | | | | [place] [address] | | | | + + + + + + + + | Specimen | + + | Blood specimen | | (specimen) | + + + +---------+ + + | Performing | Address | City/State/Zipcode | Phone Number | | Organization | | | | + +---------+ + + | EXTERNAL LAB | | | | + +---------+ + + Protime INR (09/28/2014 3:56 AM PDT) + + + + + + | Component | Value | Ref Range | Performed | Pathologist | | | | | At | Signature | + + + + + + | INR | 2.0Comment: REFERENCE | | EXTERNAL | | | | RANGE:0.9 - 1.2 | | LAB | | | | NON-ANTICOAGULATED2.0 | | | | | | - 3.0 ALL OTHER | | | | | | THERAPEUTIC | | | | | | INDICATIONS2.5 - 3.5 | | | | | | MECHANICAL HEART VALVES, | | | | | | RECURRENT OR SYSTEMIC | | | | | | EMBOLISMTesting | | | | | | performed at [facility];[address] | | | | | | [address];[place] | | | | | | [address] | | | | + + + + + + + + | Specimen | + + | Blood specimen | | (specimen) | + + + +---------+ + + | Performing | Address | City/State/Zipcode | Phone Number | | Organization | | | | + +---------+ + + | EXTERNAL LAB | | | | + +---------+ + + External Lab: CBC (09/28/2014 3:56 AM PDT) + + + + + + | Component | Value | Ref Range | Performed | Pathologist | | | | | At | Signature | + + + + + + | WBC | 7.46Comment: Testing | 3.80 - 11.00 | EXTERNAL | | | | performed at [facility], [address] | K/uL | LAB | | | | [address], | | | | | | [place] [address] | | | | + + + + + + | Red Blood | 4.36Comment: Testing | 3.70 - 5.10 | EXTERNAL | | | Cells | performed at [facility], [address] | M/uL | LAB | | | Counted | [address], | | | | | | [place] [address] | | | | + + + + + + | Hemoglobin | 12.9Comment: Testing | 11.3 - 15.5 | EXTERNAL | | | | performed at [facility], [address] | g/dL | LAB | | | | [address], | | | | | | [place] [address] | | | | + + + + + + | Hematocrit, | 39.0Comment: Testing | 34.0 - 46.0 % | EXTERNAL | | | POC | performed at [facility], [address] | | LAB | | | | [address], | | | | | | [place] [address] | | | | + + + + + + | MCV | 89.5Comment: Testing | 80.0 - 100.0 fl | EXTERNAL | | | | performed at [facility], [address] | | LAB | | | | [address], | | | | | | [place] [address] | | | | + + + + + + | MCH | 29.6Comment: Testing | 27.0 - 34.0 pg | EXTERNAL | | | | performed at [facility], [address] | | LAB | | | | [address], | | | | | | [place] [address] | | | | + + + + + + | MCHC | 33.0Comment: Testing | 32.0 - 35.5 | EXTERNAL | | | | performed at [facility], [address] | g/dL | LAB | | | | [address], | | | | | | [place], [place] [address] | | | | + + + + + + | RDW-CV | 45.1Comment: Testing | 37 - 53 fl | EXTERNAL | | | | performed at [facility], [address] | | LAB | | | | [address], | | | | | | [place], [place] [address] | | | | + + + + + + | Platelet | 203Comment: Testing | 150 - 400 K/uL | EXTERNAL | | | Count | performed at [facility], [address] | | LAB | | | Plasma | [address], | | | | | | [place], [place] [address] | | | | + + + + + + | MPV | 8.5Comment: Testing | fl | EXTERNAL | | | | performed at [facility], [address] | | LAB | | | | [address], | | | | | | [place] [address] | | | | + + + + + + | Differentia | AUTOMATEDComment: | | EXTERNAL | | | l Type | Testing performed at | | LAB | | | | [facility], [address] | | | | | | [place] | | | | | | [address] | | | | + + + + + + | % Segmented | 68.25Comment: Testing | % | EXTERNAL | | | | performed at [facility], [address] | | LAB | | | Neutrophils | [address], | | | | | | [place] [address] | | | | + + + + + + | % | 19.10Comment: Testing | % | EXTERNAL | | | Lymphocytes | performed at [facility], [address] | | LAB | | | | [address], | | | | | | [place] [address] | | | | + + + + + + | % Monocytes | 7.31Comment: Testing | % | EXTERNAL | | | | performed at [facility], [address] | | LAB | | | | [address], | | | | | | [place] [address] | | | | + + + + + + | % | 4.67Comment: Testing | % | EXTERNAL | | | Eosinophils | performed at [facility], [address] | | LAB | | | | [address], | | | | | | [place] [address] | | | | + + + + + + | % Basophils | 0.67Comment: Testing | % | EXTERNAL | | | | performed at [facility], [address] | | LAB | | | | [address], | | | | | | [place] [address] | | | | + + + + + + | Absolute | 5.09Comment: Testing | 1.90 - 7.40 | EXTERNAL | | | Segmented | performed at [facility], [address] | K/uL | LAB | | | Neutrophils | [address], | | | | | | [place] [address] | | | | + + + + + + | Absolute | 1.42Comment: Testing | 1.00 - 3.90 | EXTERNAL | | | Lymphocytes | performed at [facility], [address] | K/uL | LAB | | | | [address], | | | | | | [place] [address] | | | | + + + + + + | Absolute | 0.55Comment: Testing | 0.00 - 0.80 | EXTERNAL | | | Monocytes | performed at [facility], [address] | K/uL | LAB | | | | [address], | | | | | | [place] [address] | | | | + + + + + + | Absolute | 0.35Comment: Testing | 0.00 - 0.50 | EXTERNAL | | | Eosinophils | performed at [facility], [address] | K/uL | LAB | | | | [address], | | | | | | [place] [address] | | | | + + + + + + | Absolute | 0.05Comment: Testing | 0.00 - 0.10 | EXTERNAL | | | Basophils | performed at [facility], [address] | K/uL | LAB | | | | [address], | | | | | | [place] [address] | | | | + + + + + + + + | Specimen | + + | Blood specimen | | (specimen) | + + + +---------+ + + | Performing | Address | City/State/Zipcode | Phone Number | | Organization | | | | + +---------+ + + | EXTERNAL LAB | | | | + +---------+ + + Basic Metabolic Panel (09/28/2014 3:56 AM PDT) + + + + + + | Component | Value | Ref Range | Performed | Pathologist | | | | | At | Signature | + + + + + + | Na | 136Comment: Testing | 135 - 143 | EXTERNAL | | | | performed at [facility], [address] | mmol/L | LAB | | | | [address], | | | | | | [place] [id number] | | | | + + + + + + | K | 3.6Comment: Testing | 3.5 - 4.9 | EXTERNAL | | | | performed at [facility], [address] | mmol/L | LAB | | | | [address], | | | | | | [place] [id number] | | | | + + + + + + | Cl | 105Comment: Testing | 99 - 109 mmol/L | EXTERNAL | | | | performed at [facility], [address] | | LAB | | | | [address], | | | | | | [place] [address] | | | | + + + + + + | CO2 | 25Comment: Testing | 23 - 32 mmol/L | EXTERNAL | | | | performed at [facility], [address] | | LAB | | | | [address], | | | | | | [place] [address] | | | | + + + + + + | Anion Gap | 10Comment: Testing | 5 - 20 mmol/L | EXTERNAL | | | | performed at [facility], [address] | | LAB | | | | [address], | | | | | | [place] [address] | | | | + + + + + + | Glucose, | 135 (H)Comment: Testing | 65 - 99 mg/dL | EXTERNAL | | | Fasting | performed at [facility], [address] | | LAB | | | | [address], | | | | | | [place] [address] | | | | + + + + + + | BUN | 11Comment: Testing | 8 - 25 mg/dL | EXTERNAL | | | | performed at [facility], [address] | | LAB | | | | [address], | | | | | | [place] [address] | | | | + + + + + + | Creatinine | 0.77Comment: Testing | 0.50 - 1.00 | EXTERNAL | | | | performed at [facility], [address] | mg/dL | LAB | | | | [address], | | | | | | [place] [address] | | | | + + + + + + | BUN/Creatin | 14Comment: Testing | | EXTERNAL | | | ine Ratio | performed at [facility], [address] | | LAB | | | | [address], | | | | | | [place] [address] | | | | + + + + + + | Calcium | 9.0Comment: Testing | 8.5 - 10.5 | EXTERNAL | | | | performed at [facility], [address] | mg/dL | LAB | | | | [facility], | | | | | | [place] [address] | | | | + + + + + + | Estimated | >60Comment: GFR <60: | mL/min/1.73m2 | EXTERNAL | | | GFR | CHRONIC KIDNEY DISEASE, | | LAB | | | | IF FOUND OVER A 3 MONTH | | | | | | PERIOD.GFR <15: KIDNEY | | | | | | FAILURE.FOR | | | | | | AMERICANS, MULTIPLY THE | | | | | | CALCULATED GFR BY | | | | | | 1.210.Testing performed | | | | | | at [facility], [address] | | | | | | [employer] [facility], | | | | | | [place] [address] | | | | + + + + + + + + | Specimen | + + | Blood specimen | | (specimen) | + + + +---------+ + + | Performing | Address | City/State/Zipcode | Phone Number | | Organization | | | | + +---------+ + + | EXTERNAL LAB | | | | + +---------+ + + [facility] INR (09/27/2014 4:32 AM PDT) + + + + + + | Component | Value | Ref Range | Performed | Pathologist | | | | | At | Signature | + + + + + + | INR | 2.0Comment: REFERENCE | | EXTERNAL | | | | RANGE:0.9 - 1.2 | | LAB | | | | NON-ANTICOAGULATED2.0 | | | | | | - 3.0 ALL OTHER | | | | | | THERAPEUTIC | | | | | | INDICATIONS2.5 - 3.5 | | | | | | MECHANICAL HEART VALVES, | | | | | | RECURRENT OR SYSTEMIC | | | | | | EMBOLISMTesting | | | | | | performed at [facility];[address] | | | | | | [address] [facility];[place], [place] | | | | | | [address] | | | | + + + + + + + + | Specimen | + + | Blood specimen | | (specimen) | + + + +---------+ + + | Performing | Address | City/State/Zipcode | Phone Number | | Organization | | | | + +---------+ + + | EXTERNAL LAB | | | | + +---------+ + + External Lab: CBC (09/27/2014 4:32 AM PDT) + + + + + + | Component | Value | Ref Range | Performed | Pathologist | | | | | At | Signature | + + + + + + | WBC | 8.41Comment: Testing | 3.80 - 11.00 | EXTERNAL | | | | performed at [facility], [address] | K/uL | LAB | | | | [address], | | | | | | [place] [address] | | | | + + + + + + | Red Blood | 4.42Comment: Testing | 3.70 - 5.10 | EXTERNAL | | | Cells | performed at [facility], [address] | M/uL | LAB | | | Counted | [address], | | | | | | [place] [address] | | | | + + + + + + | Hemoglobin | 13.1Comment: Testing | 11.3 - 15.5 | EXTERNAL | | | | performed at [facility], [address] | g/dL | LAB | | | | [address], | | | | | | [place] [address] | | | | + + + + + + | Hematocrit, | 39.3Comment: Testing | 34.0 - 46.0 % | EXTERNAL | | | POC | performed at [facility], [address] | | LAB | | | | [address], | | | | | | [place] [address] | | | | + + + + + + | MCV | 88.9Comment: Testing | 80.0 - 100.0 fl | EXTERNAL | | | | performed at [facility], [address] | | LAB | | | | [address], | | | | | | [place] [address] | | | | + + + + + + | MCH | 29.7Comment: Testing | 27.0 - 34.0 pg | EXTERNAL | | | | performed at [facility], [address] | | LAB | | | | [address], | | | | | | [place] [address] | | | | + + + + + + | MCHC | 33.4Comment: Testing | 32.0 - 35.5 | EXTERNAL | | | | performed at [facility], [address] | g/dL | LAB | | | | [address], | | | | | | [place] [address] | | | | + + + + + + | RDW-CV | 46.4Comment: Testing | 37 - 53 fl | EXTERNAL | | | | performed at [facility], [address] | | LAB | | | | [address], | | | | | | [place] [address] | | | | + + + + + + | Platelet | 216Comment: Testing | 150 - 400 K/uL | EXTERNAL | | | Count | performed at [facility], [address] | | LAB | | | Plasma | [address], | | | | | | [place] [address] | | | | + + + + + + | MPV | 8.1Comment: Testing | fl | EXTERNAL | | | | performed at [facility], [address] | | LAB | | | | [address], | | | | | | [place] [address] | | | | + + + + + + | Differentia | AUTOMATEDComment: | | EXTERNAL | | | l Type | Testing performed at | | LAB | | | | [facility], [address] | | | | | | [place] | | | | | | [address] | | | | + + + + + + | % Segmented | 67.07Comment: Testing | % | EXTERNAL | | | | performed at [facility], [address] | | LAB | | | Neutrophils | [address], | | | | | | [place] [address] | | | | + + + + + + | % | 20.82Comment: Testing | % | EXTERNAL | | | Lymphocytes | performed at [facility], [address] | | LAB | | | | [address], | | | | | | [place] [address] | | | | + + + + + + | % Monocytes | 5.74Comment: Testing | % | EXTERNAL | | | | performed at [facility], [address] | | LAB | | | | [address], | | | | | | [place] [address] | | | | + + + + + + | % | 5.45Comment: Testing | % | EXTERNAL | | | Eosinophils | performed at [facility], [address] | | LAB | | | | [address], | | | | | | [place] [address] | | | | + + + + + + | % Basophils | 0.92Comment: Testing | % | EXTERNAL | | | | performed at [facility], [address] | | LAB | | | | [address], | | | | | | [place] [address] | | | | + + + + + + | Absolute | 5.64Comment: Testing | 1.90 - 7.40 | EXTERNAL | | | Segmented | performed at [facility], [address] | K/uL | LAB | | | Neutrophils | [address], | | | | | | [place] [address] | | | | + + + + + + | Absolute | 1.75Comment: Testing | 1.00 - 3.90 | EXTERNAL | | | Lymphocytes | performed at [facility], [address] | K/uL | LAB | | | | [address], | | | | | | [place] [address] | | | | + + + + + + | Absolute | 0.48Comment: Testing | 0.00 - 0.80 | EXTERNAL | | | Monocytes | performed at [facility], [address] | K/uL | LAB | | | | [address], | | | | | | [place] [address] | | | | + + + + + + | Absolute | 0.46Comment: Testing | 0.00 - 0.50 | EXTERNAL | | | Eosinophils | performed at [facility], [address] | K/uL | LAB | | | [address], | | | | | | [place] [address] | | | | + + + + + + | Absolute | 0.08Comment: Testing | 0.00 - 0.10 | EXTERNAL | | | Basophils | performed at [facility], [address] | K/uL | LAB | | | | [address], | | | | | | [place] [address] | | | | + + + + + + + + | Specimen | + + | Blood specimen | | (specimen) | + + + +---------+ + + | Performing | Address | City/State/Zipcode | Phone Number | | Organization | | | | + +---------+ + + | EXTERNAL LAB | | | | + +---------+ + + Comprehensive Metabolic Panel (09/27/2014 4:32 AM PDT) + + + + + + | Component | Value | Ref Range | Performed | Pathologist | | | | | At | Signature | + + + + + + | Na | 138Comment: Testing | 135 - 143 | EXTERNAL | | | | performed at [facility], [address] | mmol/L | LAB | | | | [address] | | | | | | [place] [address] | | | | + + + + + + | K | 3.4 (L)Comment: Testing | 3.5 - 4.9 | EXTERNAL | | | | performed at [facility], [address] | mmol/L | LAB | | | | [address], | | | | | | [place] [address] | | | | + + + + + + | Cl | 106Comment: Testing | 99 - 109 mmol/L | EXTERNAL | | | | performed at [facility], [address] | | LAB | | | | [address], | | | | | | [place] [address] | | | | + + + + + + | CO2 | 25Comment: Testing | 23 - 32 mmol/L | EXTERNAL | | | | performed at [facility], [address] | | LAB | | | | [address], | | | | | | [place] [address] | | | | + + + + + + | Anion Gap | 10Comment: Testing | 5 - 20 mmol/L | EXTERNAL | | | | performed at [facility], [address] | | LAB | | | | [address], | | | | | | [place] [address] | | | | + + + + + + | Glucose, | 107 (H)Comment: Testing | 65 - 99 mg/dL | EXTERNAL | | | Fasting | performed at [facility], [address] | | LAB | | | | [address], | | | | | | [place] [address] | | | | + + + + + + | BUN | 10Comment: Testing | 8 - 25 mg/dL | EXTERNAL | | | | performed at [facility], [address] | | LAB | | | | [address], | | | | | | [place] [address] | | | | + + + + + + | Creatinine | 0.77Comment: Testing | 0.50 - 1.00 | EXTERNAL | | | | performed at [facility], [address] | mg/dL | LAB | | | | [address], | | | | | | [place] [address] | | | | + + + + + + | BUN/Creatin | 13Comment: Testing | | EXTERNAL | | | ine Ratio | performed at [facility], [address] | | LAB | | | | [address], | | | | | | [place] [address] | | | | + + + + + + | Calcium | 9.0Comment: Testing | 8.5 - 10.5 | EXTERNAL | | | | performed at [facility], [address] | mg/dL | LAB | | | | [address], | | | | | | [place] [address] | | | | + + + + + + | Protein, | 6.1 (L)Comment: Testing | 6.3 - 8.2 g/dL | EXTERNAL | | | Total | performed at [facility], [address] | | LAB | | | | [address], | | | | | | [place] [address] | | | | + + + + + + | Albumin | 3.6Comment: Testing | 3.3 - 4.8 g/dL | EXTERNAL | | | | performed at [facility], [address] | | LAB | | | | [address], | | | | | | [place] [address] | | | | + + + + + + | Globulin | 2.5Comment: Testing | 1.3 - 4.9 g/dL | EXTERNAL | | | | performed at [facility], [address] | | LAB | | | | [address], | | | | | | [place] [address] | | | | + + + + + + | A/G Ratio | 1.4Comment: Testing | 1.0 - 2.4 | EXTERNAL | | | | performed at [facility], [address] | | LAB | | | | [address], | | | | | | [place] [address] | | | | + + + + + + | Bilirubin | 0.9Comment: Testing | 0.1 - 1.5 mg/dL | EXTERNAL | | | Total | performed at [facility], [address] | | LAB | | | | [address], | | | | | | [place] [address] | | | | + + + + + + | ALP, | 72Comment: Testing | 35 - 115 U/L | EXTERNAL | | | External | performed at [facility], [address] | | LAB | | | | [address], | | | | | | [place] [address] | | | | + + + + + + | AST | 22Comment: Testing | 10 - 45 U/L | EXTERNAL | | | | performed at [facility], [address] | | LAB | | | | [address], | | | | | | [place] [address] | | | | + + + + + + | ALT | 17Comment: Testing | 10 - 65 U/L | EXTERNAL | | | | performed at [facility], [address] | | LAB | | | | [address] [facility], | | | | | | [place] [address] | | | | + + + + + + | Estimated | >60Comment: GFR <60: | mL/min/1.73m2 | EXTERNAL | | | GFR | CHRONIC KIDNEY DISEASE, | | LAB | | | | IF FOUND OVER A 3 MONTH | | | | | | PERIOD.GFR <15: KIDNEY | | | | | | FAILURE.FOR | | | | | | AMERICANS, MULTIPLY THE | | | | | | CALCULATED GFR BY | | | | | | 1.210.Testing performed | | | | | | at [facility], [address] | | | | | | [address] [facility], | | | | | | [place] [address] | | | | + + + + + + + + | Specimen | + + | Blood specimen | | (specimen) | + + + +---------+ + + | Performing | Address | City/State/Zipcode | Phone Number | | Organization | | | | + +---------+ + + | EXTERNAL LAB | | | | + +---------+ + + ECHO Transesophageal (YAQUELIN) (09/26/2014 8:30 AM PDT) + + | Specimen | + + | | + + + + + | Impressions | Performed At | + + + | 1. Overall left ventricular systolic function is severely impaired | | | with, an EF between 25 - 30 %. 2. The left atrium is markedly | | | dilated. 3. Severe mitral regurgitation is present. 4. The right | | | ventricular systolic pressure, as measured by Doppler, is 44.12mmHg. | | + + + + + + | Narrative | Performed At | + + + | Patient Name: KIMBERLEE PEGUERO Date of : 1935 | | | Performing Physician: Bryan Ceja MD | | | | | | INDICATIONS EVALUATE MR CONCLUSIONS 1. | | | Overall left ventricular systolic function is severely impaired with, | | | an EF between 25 - 30 %. 2. The left atrium is markedly dilated. 3. | | | Severe mitral regurgitation is present. 4. The right ventricular | | | systolic pressure, as measured by Doppler, is 44.12mmHg. FINDINGS | | | -------- Procedure: Transesophageal echocardiogram with spectral and | | | color flow Doppler was performed. Procedure: YAQUELIN was done at the | | | bedside in the fasting state. Informed consent was obtained after | | | benefits and risks of the procedure were discussed with the patient | | | including but not limited to the potential for esophageal puncture and | | | . The oropharynx was anesthetized with 1% Hurricane spray. | | | After conscious sedation, the transesophageal probe was advanced and | | | placed in the esophagus and multiple projections of the | | | cardiovascular structures were acquired and recorded. This was | | | followed by advancement of the probe into the stomach for | | | transgastric imaging. Finally, interrogation of the descending aorta | | | and arch was performed. The probe was removed. The patient | | | tolerated the procedure well. There were no immediate | | | complications. 2 D, pulsed and continuous wave form and color | | | images were interpreted in real time. Medications: 3 mg of Versed and | | | Medications: 50 mcg of Fentanyl was given intraveonously for | | | conscious sedation. Study quality: This was a technically adequate | | | study. Left Ventricle: The left ventricle size is normal. Left | | | Ventricle: Left Ventricle: Overall left ventricular systolic function | | | is severely impaired with, an EF between 25 - 30 %. Left Atrium: The | | | left atrium is markedly dilated. Left Atrium: Normal left atrial | | | appendage without evidence for thrombi. Right Ventricle: The right | | | ventricle is normal in size measuring < 33 mm. Right Atrium: The | | | right atrial size is normal. Interatrial Septum: No shunt seen with | | | color Doppler. Interatrial Septum: No shunt seen with bubble study. | | | Aortic Valve: Aortic valve is trileaflet and is mildly thickened. | | | Aortic Valve: Trace amount of aortic regurgitation. Aortic Valve: | | | There is no evidence of aortic stenosis. Mitral Valve: Severe mitral | | | regurgitation is present Mitral Valve: , predominately a posteriorly | | | directed jet. Mitral Valve: Mild thickening of the mitral valve | | | leaflets. Tricuspid Valve: The tricuspid valve appears structurally | | | normal. Tricuspid Valve: Mild tricuspid regurgitation present. | | | Tricuspid Valve: The right ventricular systolic pressure, as measured | | | by Doppler, is 44.12mmHg. Pulmonic Valve: The pulmonic valve was not | | | well visualized. Aorta: Ascending aorta, aortic arch and descending | | | thoracic aorta are of normal caliber with no significant | | | atherosclerotic disease. Pulmonary Veins: All pulmonary veins appear | | | normal. Pulmonary Veins: The flow patterns, measured by Doppler, | | | indicate systolic flow reversal suggestive of severe MR. Pericardium: | | | There is no pericardial effusion. MEASUREMENTS | | | LVEF MOD A2C: 39.40 % SV MOD A2C: 47.66 ml LVEF MOD A4C: | | | 15.15 % SV MOD A4C: 12.84 ml EF Biplane: 27.49 % LVEDV MOD | | | BP: 108.33 ml LVESV MOD BP: 78.54 ml LVEDV MOD A2C: 120.95 | | | ml LVLd A2C: 7.51 cm LVEDV MOD A4C: 84.76 ml LVLd A4C: | | | 8.65 cm LVESV MOD A2C: 73.29 ml LVLs A2C: 6.87 cm LVESV MOD | | | A4C: 71.92 ml LVLs A4C: 8.27 cm RAP: 5 mmHg RVSP: 44.12 | | | mmHg TR maxP.12 mmHg TR Vmax: 3.12 m/s Mixed Signal Design Engineer: | | | KE Authenticated by: Bryan Ceja MD Report Date/Time: 09-26-2014 | | | 11:45:00 | | + + + + + | Procedure Note | + + | Pineda Gomez Conversion - 01/30/2019 8:18 AM PDT Patient Name: Crys PEGUERO of | | : 1935 Performing Physician: Bryan Ceja | | MD INDICATIONS E | | VALUATE MR CONCLUSIONS 1. Overall left ventricular systolic function is | | severely impaired with, an EF between 25 - 30 %.2. The left atrium is markedly | | dilated.3. Severe mitral regurgitation is present.4. The right ventricular systolic | | pressure, as measured by Doppler, is 44.12mmHg. FINDINGS--------Procedure: | | Transesophageal echocardiogram with spectral and color flow Doppler was | | performed.Procedure: YAQUELIN was done at the bedside in the fasting state. Informed consent | | was obtained after benefits and risks of the procedure were discussed with the patient | | including but not limited to the potential for esophageal puncture and . The | | oropharynx was anesthetized with 1% Hurricane spray. After conscious sedation, the | | transesophageal probe was advanced and placed in the esophagus and multiple projections | | of the cardiovascular structures were acquired and recorded. This was followed by | | advancement of the probe into the stomach for transgastric imaging. Finally, | | interrogation of the descending aorta and arch was performed. The probe was removed. | | The patient tolerated the procedure well. There were no immediate complications. 2 | | D, pulsed and continuous wave form and color images were interpreted in real | | time.Medications: 3 mg of Versed andMedications: 50 mcg of Fentanyl was given | | intraveonously for conscious sedation.Study quality: This was a technically adequate | | study.Left Ventricle: The left ventricle size is normal.Left Ventricle:Left Ventricle: | | Overall left ventricular systolic function is severely impaired with, an EF between 25 - | | 30 %.Left Atrium: The left atrium is markedly dilated.Left Atrium: Normal left atrial | | appendage without evidence for thrombi.Right Ventricle: The right ventricle is normal in | | size measuring < 33 mm.Right Atrium: The right atrial size is normal.Interatrial | | Septum: No shunt seen with color Doppler.Interatrial Septum: No shunt seen with bubble | | study.Aortic Valve: Aortic valve is trileaflet and is mildly thickened.Aortic Valve: | | Trace amount of aortic regurgitation.Aortic Valve: There is no evidence of aortic | | stenosis.Mitral Valve: Severe mitral regurgitation is presentMitral Valve: , | | predominately a posteriorly directed jet.Mitral Valve: Mild thickening of the mitral | | valve leaflets.Tricuspid Valve: The tricuspid valve appears structurally | | normal.Tricuspid Valve: Mild tricuspid regurgitation present.Tricuspid Valve: The right | | ventricular systolic pressure, as measured by Doppler, is 44.12mmHg.Pulmonic Valve: The | | pulmonic valve was not well visualized.Aorta: Ascending aorta, aortic arch and | | descending thoracic aorta are of normal caliber with no significant atherosclerotic | | disease.Pulmonary Veins: All pulmonary veins appear normal.Pulmonary Veins: The flow | | patterns, measured by Doppler, indicate systolic flow reversal suggestive of severe | | MR.Pericardium: There is no pericardial effusion. MEASUREMENTS LVEF MOD A2C: | | 39.40 %SV MOD A2C: 47.66 mlLVEF MOD A4C: 15.15 %SV MOD A4C: 12.84 mlEF Biplane: | | 27.49 %LVEDV MOD BP: 108.33 mlLVESV MOD BP: 78.54 mlLVEDV MOD A2C: 120.95 | | mlLVLd A2C: 7.51 cmLVEDV MOD A4C: 84.76 mlLVLd A4C: 8.65 cmLVESV MOD A2C: 73.29 | | mlLVLs A2C: 6.87 cmLVESV MOD A4C: 71.92 mlLVLs A4C: 8.27 cmRAP: 5 mmHgRVSP: | | 44.12 mmHgTR maxP.12 mmHgTR Vmax: 3.12 m/s Mixed Signal Design Engineer: Nikated by: | | Bryan Preciadoqaikatrin MDReport Date/Time: 09-26-2014 11:45:00 IMPRESSION: 1. Overall left | | ventricular systolic function is severely impaired with, an EF between 25 - 30 %.2. The | | left atrium is markedly dilated.3. Severe mitral regurgitation is present.4. The right | | ventricular systolic pressure, as measured by Doppler, is 44.12mmHg. | |Tricuspid Valve: Mild tricuspid regurgitation present. | |Tricuspid Valve: The right ventricular systolic pressure, as measured by Doppler, is 44.12m mHg. | |Pulmonic Valve: The pulmonic valve was not well visualized. | |Aorta: Ascending aorta, aortic arch and descending thoracic aorta are of normal caliber wit h no significant atherosclerotic disease. | |Pulmonary Veins: All pulmonary veins appear normal. | |Pulmonary Veins: The flow patterns, measured by Doppler, indicate systolic flow reversal jraamillo ggestive of severe MR. | |Pericardium: There is no pericardial effusion. | | | |MEASUREMENTS | | | |LVEF MOD A2C: 39.40 % | |SV MOD A2C: 47.66 ml | |LVEF MOD A4C: 15.15 % | |SV MOD A4C: 12.84 ml | |EF Biplane: 27.49 % | |LVEDV MOD BP: 108.33 ml | |LVESV MOD BP: 78.54 ml | |LVEDV MOD A2C: 120.95 ml | |LVLd A2C: 7.51 cm | |LVEDV MOD A4C: 84.76 ml | |LVLd A4C: 8.65 cm | |LVESV MOD A2C: 73.29 ml | |LVLs A2C: 6.87 cm | |LVESV MOD A4C: 71.92 ml | |LVLs A4C: 8.27 cm | |RAP: 5 mmHg | |RVSP: 44.12 mmHg | |TR maxP.12 mmHg | |TR Vmax: 3.12 m/s | | | |Mixed Signal Design Engineer: ANGEL | |Authenticated by: Bryan Ceja MD | |Report Date/Time: 09-26-2014 11:45:00 | | | |IMPRESSION: | |1. Overall left ventricular systolic function is severely impaired with, an EF between 25 - 30 %. | |2. The left atrium is markedly dilated. | |3. Severe mitral regurgitation is present. | |4. The right ventricular systolic pressure, as measured by Doppler, is 44.12mmHg. | + + ECG 12 lead (09/26/2014 6:03 AM PDT) + + + + + + | Component | Value | Ref Range | Performed | Pathologist | | | | | At | Signature | + + + + + + | DIAGNOSIS: | Atrial fibrillation with | | EXTERNAL | | | | rapid ventricular | | LAB | | | | responseLeft axis | | | | | | deviationIncomplete left | | | | | | bundle branch blockST & | | | | | | T wave abnormality, | | | | | | consider lateral | | | | | | ischemiaAbnormal ECGWhen | | | | | | compared with ECG of | | | | | | 25-SEP-2014 19:13,Atrial | | | | | | fibrillation has | | | | | | replaced Sinus rhythmT | | | | | | wave inversion less | | | | | | evident in Anterior | | | | | | leadsConfirmed by | | | | | | MIGUEL GOMEZ ([id number]) on | | | | | | 09/26/2014 10:32:37 PM | | | | + + + + + + + + | Specimen | + + | | + + + + + | Narrative | Performed At | + + + | [facility]ically [facility] Epic environment | EXTERNAL LAB | + + + + +---------+ + + | Performing | Address | City/State/Zipcode | Phone Number | | Organization | | | | + +---------+ + + | EXTERNAL LAB | | | | + +---------+ + + Protime INR (09/26/2014 3:50 AM PDT) + + + + + + | Component | Value | Ref Range | Performed | Pathologist | | | | | At | Signature | + + + + + + | INR | 1.1Comment: REFERENCE | | EXTERNAL | | | | RANGE:0.9 - 1.2 | | LAB | | | | NON-ANTICOAGULATED2.0 | | | | | | - 3.0 ALL OTHER | | | | | | THERAPEUTIC | | | | | | INDICATIONS2.5 - 3.5 | | | | | | MECHANICAL HEART VALVES, | | | | | | RECURRENT OR SYSTEMIC | | | | | | EMBOLISMTesting | | | | | | performed at [facility];[address] | | | | | | [facility];[place], [place] | | | | | | [address] | | | | + + + + + + + + | Specimen | + + | Blood specimen | | (specimen) | + + + +---------+ + + | Performing | Address | City/State/Zipcode | Phone Number | | Organization | | | | + +---------+ + + | EXTERNAL LAB | | | | + +---------+ + + External Lab: [facility] (09/26/2014 3:50 AM PDT) + + + + + + | Component | Value | Ref Range | Performed | Pathologist | | | | | At | Signature | + + + + + + | WBC | 7.80Comment: Testing | 3.80 - 11.00 | EXTERNAL | | | | performed at [facility], [address] | K/uL | LAB | | | | [address], | | | | | | [place] [address] | | | | + + + + + + | Red Blood | 4.56Comment: Testing | 3.70 - 5.10 | EXTERNAL | | | Cells | performed at [facility], [address] | M/uL | LAB | | | Counted | [address], | | | | | | [place] [address] | | | | + + + + + + | Hemoglobin | 13.5Comment: Testing | 11.3 - 15.5 | EXTERNAL | | | | performed at [facility], [address] | g/dL | LAB | | | | [address], | | | | | | [place] [address] | | | | + + + + + + | Hematocrit, | 40.5Comment: Testing | 34.0 - 46.0 % | EXTERNAL | | | POC | performed at [facility], [address] | | LAB | | | | [address], | | | | | | [place] [address] | | | | + + + + + + | MCV | 88.8Comment: Testing | 80.0 - 100.0 fl | EXTERNAL | | | | performed at [facility], [address] | | LAB | | | | [address], | | | | | | [place] [address] | | | | + + + + + + | MCH | 29.7Comment: Testing | 27.0 - 34.0 pg | EXTERNAL | | | | performed at [facility], [address] | | LAB | | | | [address], | | | | | | [place] [address] | | | | + + + + + + | MCHC | 33.4Comment: Testing | 32.0 - 35.5 | EXTERNAL | | | | performed at [facility], [address] | g/dL | LAB | | | | [address], | | | | | | [place] [address] | | | | + + + + + + | RDW-CV | 44.6Comment: Testing | 37 - 53 fl | EXTERNAL | | | | performed at [facility], [address] | | LAB | | | | [address], | | | | | | [place] [address] | | | | + + + + + + | Platelet | 215Comment: Testing | 150 - 400 K/uL | EXTERNAL | | | Count | performed at [facility], [address] | | LAB | | | Plasma | [address], | | | | | | [place] [address] | | | | + + + + + + | MPV | 8.4Comment: Testing | fl | EXTERNAL | | | | performed at [facility], [address] | | LAB | | | | [address], | | | | | | [place] [address] | | | | + + + + + + | Differentia | AUTOMATEDComment: | | EXTERNAL | | | l Type | Testing performed at | | LAB | | | | [facility], [address] | | | | | | [place] | | | | | | [address] | | | | + + + + + + | % Segmented | 69.91Comment: Testing | % | EXTERNAL | | | | performed at [facility], [address] | | LAB | | | Neutrophils | [address], | | | | | | [place] [address] | | | | + + + + + + | % | 20.30Comment: Testing | % | EXTERNAL | | | Lymphocytes | performed at [facility], [address] | | LAB | | | | [address], | | | | | | [place] [address] | | | | + + + + + + | % Monocytes | 6.60Comment: Testing | % | EXTERNAL | | | | performed at [facility], [address] | | LAB | | | | [address], | | | | | | [place] [address] | | | | + + + + + + | % | 2.36Comment: Testing | % | EXTERNAL | | | Eosinophils | performed at [facility], [address] | | LAB | | | | [address], | | | | | | [place] [address] | | | | + + + + + + | % Basophils | 0.83Comment: Testing | % | EXTERNAL | | | | performed at [facility], [address] | | LAB | | | | [address], | | | | | | [place] [address] | | | | + + + + + + | Absolute | 5.45Comment: Testing | 1.90 - 7.40 | EXTERNAL | | | Segmented | performed at [facility], [address] | K/uL | LAB | | | Neutrophils | [address], | | | | | | [place] [address] | | | | + + + + + + | Absolute | 1.58Comment: Testing | 1.00 - 3.90 | EXTERNAL | | | Lymphocytes | performed at [facility], [address] | K/uL | LAB | | | | [address], | | | | | | [place] [address] | | | | + + + + + + | Absolute | 0.52Comment: Testing | 0.00 - 0.80 | EXTERNAL | | | Monocytes | performed at [facility], [address] | K/uL | LAB | | | | [address], | | | | | | [place] [address] | | | | + + + + + + | Absolute | 0.18Comment: Testing | 0.00 - 0.50 | EXTERNAL | | | Eosinophils | performed at [facility], [address] | K/[address]L | LAB | | | | [address], | | | | | | [place] [address] | | | | + + + + + + | Absolute | 0.07Comment: Testing | 0.00 - 0.10 | EXTERNAL | | | Basophils | performed at [facility], [address] | K[address] | LAB | | | | [address], | | | | | | [place] [address] | | | | + + + + + + + + | Specimen | + + | Blood specimen | | (specimen) | + + + +---------+ + + | Performing | Address | City/State/Zipcode | Phone Number | | Organization | | | | + +---------+ + + | EXTERNAL LAB | | | | + +---------+ + + Basic Metabolic Panel (09/26/2014 3:50 AM PDT) + + + + + + | Component | Value | Ref Range | Performed | Pathologist | | | | | At | Signature | + + + + + + | Na | 139Comment: Testing | 135 - 143 | EXTERNAL | | | | performed at [facility], [address] | mmol/L | LAB | | | | [address], | | | | | | [place] [address] | | | | + + + + + + | K | 3.5Comment: Testing | 3.5 - 4.9 | EXTERNAL | | | | performed at [facility], [address] | mmol/L | LAB | | | | [address], | | | | | | [place] [address] | | | | + + + + + + | Cl | 108Comment: Testing | 99 - 109 mmol/L | EXTERNAL | | | | performed at [facility], [address] | | LAB | | | | [address], | | | | | | [place] [address] | | | | + + + + + + | CO2 | 22 (L)Comment: Testing | 23 - 32 mmol/L | EXTERNAL | | | | performed at [facility], [address] | | LAB | | | | [address], | | | | | | [place] [address] | | | | + + + + + + | Anion Gap | 13Comment: Testing | 5 - 20 mmol/L | EXTERNAL | | | | performed at [facility], [address] | | LAB | | | | [address], | | | | | | [place] [address] | | | | + + + + + + | Glucose, | 120 (H)Comment: Testing | 65 - 99 mg/dL | EXTERNAL | | | Fasting | performed at [facility], [address] | | LAB | | | | [address], | | | | | | [place] [address] | | | | + + + + + + | BUN | 10Comment: Testing | 8 - 25 mg/dL | EXTERNAL | | | | performed at [facility], [address] | | LAB | | | | [address], | | | | | | [place] [address] | | | | + + + + + + | Creatinine | 0.68Comment: Testing | 0.50 - 1.00 | EXTERNAL | | | | performed at [facility], [address] | mg/dL | LAB | | | | [address], | | | | | | [place] [address] | | | | + + + + + + | BUN/Creatin | 15Comment: Testing | | EXTERNAL | | | ine Ratio | performed at [facility], [address] | | LAB | | | | [address], | | | | | | [place] [address] | | | | + + + + + + | Calcium | 8.8Comment: Testing | 8.5 - 10.5 | EXTERNAL | | | | performed at [facility], [address] | mg/dL | LAB | | | | [address], | | | | | | [place] [address] | | | | + + + + + + | Estimated | >60Comment: GFR <60: | mL/min/1.73m2 | EXTERNAL | | | GFR | CHRONIC KIDNEY DISEASE, | | LAB | | | | IF FOUND OVER A 3 MONTH | | | | | | PERIOD.GFR <15: KIDNEY | | | | | | FAILURE.FOR | | | | | | AMERICANS, MULTIPLY THE | | | | | | CALCULATED GFR BY | | | | | | 1.210.Testing performed | | | | | | at [facility], [address] | | | | | | [address], | | | | | | [place] [address] | | | | + + + + + + + + | Specimen | + + | Blood specimen | | (specimen) | + + + +---------+ + + | Performing | Address | City/State/Zipcode | Phone Number | | Organization | | | | + +---------+ + + | EXTERNAL LAB | | | | + +---------+ + + ECG 12 lead (09/25/2014 7:13 PM PDT) + + + + + + | Component | Value | Ref Range | Performed | Pathologist | | | | | At | Signature | + + + + + + | DIAGNOSIS: | Normal sinus rhythmLeft | | EXTERNAL | | | | axis deviationIncomplete | | LAB | | | | left bundle branch | | | | | | blockST & T wave | | | | | | abnormality, consider | | | | | | lateral | | | | | | ischemiaProlonged | | | | | | QTAbnormal ECGWhen | | | | | | compared with ECG of | | | | | | 25-SEP-2014 11:53,No | | | | | | significant change was | | | | | | foundConfirmed by | | | | | | MIGUEL GOMEZ ([id number]) on | | | | | | 09/26/2014 10:26:47 PM | | | | + + + + + + + + | Specimen | + + | | + + + + + | Narrative | Performed At | + + + | Historically converted procedure from [facility] | EXTERNAL LAB | + + + + +---------+ + + | Performing | Address | City/State/Zipcode | Phone Number | | Organization | | | | + +---------+ + + | EXTERNAL LAB | | | | + +---------+ + + CV VASCULAR PROCEDURE (09/25/2014 5:28 PM PDT) + + | Specimen | + + | | + + + + + | Narrative | Performed At | + + + | | | | | | | DATE OF SERVICE September 25, 2014 PROCEDURES 1. Left heart | | | catheterization through the right femoral artery. 2. Attempt for | | | right radial approach, which was canceled due to total occlusion of | | | the left subclavian artery as shown by selective left subclavian | | | angiogram. 3. Selective coronary angiogram. 4. Left ventricular | | | pressure recording without left ventriculogram. 5. Fractional flow | | | reserve for the right coronary artery with a value of 0.87. 6. | | | Selective angiogram for the left subclavian artery. 7. Selective | | | angiogram for the right common femoral artery. 8. Closure of the | | | right common femoral arteriotomy using a 6-Turkmen Mynx closure | | | device. INDICATIONS Ms. Peguero is a 78-year-old lady with a | | | history of hypertension, diabetes, congestive heart failure, coronary | | | artery disease, and paroxysmal atrial fibrillation who was admitted | | | with shortness of breath and palpitations, found to be in atrial | | | fibrillation with rapid ventricular response, converted with IV | | | Cardizem back to sinus rhythm. Echocardiogram showed an EF of 30% to | | | 35%, with akinesia of the anterior wall. The decision was to proceed | | | with left heart catheterization for further evaluation. | | | DESCRIPTION OF PROCEDURE The procedure, details, alternatives, | | | complications were explained for the patient. Informed consent was | | | obtained. The patient was brought to the room and prepped in a | | | sterile fashion. Timeout was performed. Conscious sedation | | | administered by independent observer. The right wrist anesthetized | | | with 1% lidocaine. Right radial artery cannulized with a 6-Turkmen | | | Slender sheath. Verapamil 2.5 mg, nitroglycerin 200 mcg, and 5000 | | | international units of heparin given through the sheath. Over a | | | 260 exchange wire I tried to advance the FL4 diagnostic catheter to | | | the ascending aorta but I had to stop at the right subclavian artery. | | | I tried to advance an angled stiff Zip Glidewire with no success. | | | Then I removed the wires. I took an angiogram for the right | | | subclavian artery and it showed total occlusion of the right | | | subclavian artery. I removed the catheter and we decided to switch to | | | the femoral approach. The right groin anesthetized with 1% | | | lidocaine. Under fluoroscopic guidance, using a micropuncture needle, | | | the right common femoral artery cannulized with a 6-Turkmen sheath. | | | Right common femoral angiogram was performed in the LAINEZ view. Over a | | | guidewire an FL4 diagnostic catheter was advanced to the ascending | | | aorta selectively engaging the left main. Contrast was injected. | | | Selective angiogram for the left main, LAD, left circumflex artery | | | performed in different views. Over a guidewire it was exchanged | | | for a 5-Turkmen FR4 diagnostic catheter that was advanced to the left | | | ventricle and pressure was recorded without left ventriculogram. Then | | | the catheter was used to selectively engage the RCA. Contrast was | | | injected. Selective angiogram for the RCA was performed in different | | | views. Then the catheter was used to selective engage the right | | | subclavian artery. Contrast was injected. Selective angiogram was | | | performed in different views. The catheter was used to selectively | | | engage the left subclavian artery. Contrast was injected. Selective | | | angiogram was performed. Over a guidewire the catheter was | | | exchanged for a 6-Turkmen JR4 guide that was advanced to the ascending | | | aorta. The patient was given IV heparin to have an ACT more than | | | 200. FFR wire was normalized in the ascending aorta. Guide | | | selectively engaged the RCA. The FFR wire was advanced to the distal | | | RCA. The guide was pulled back to the ascending aorta. Adenosine was | | | started at 140 mcg/kg/min for 3 minutes with a value of 0.87, and was | | | considered to be negative. The FFR wire was removed. Selective | | | angiogram was done for the RCA showing no complications. Guide was | | | removed. Sheath was removed. The arteriotomy was closed using a | | | 6-Turkmen Mynx closure device with good hemostasis. The right radial | | | sheath was removed. A TR band was applied with good hemostasis. The | | | patient was transferred back to the room in stable condition. | | | FINDINGS HEMODYNAMICS 1. Systemic pressure 114/57. 2. Pressure in | | | the right subclavian artery 86/64. 3. Left ventricular end-diastolic | | | pressure 30. 4. No significant gradient across the aortic valve. | | | ANGIOGRAM 1. Left main is normal size, no significant stenosis. 2. | | | LAD 100% occluded at the ostium with no flow in the stent that is | | | visualized in the proximal LAD. The very distal part of the LAD near | | | the apex is shown by right to left collaterals. 3. First and second | | | diagonals are visualized by left to left collaterals, with no | | | significant stenosis. They are occluded at the ostium. Third diagonal | | | is not visualized. 4. Left circumflex artery is a normal sized | | | artery with 90% stenosis between the second and third obtuse | | | marginal. 5. First obtuse marginal is a high takeoff, tiny, no | | | significant stenosis. Second obtuse marginal is small, no significant | | | stenosis. Third obtuse marginal is normal size, no significant | | | stenosis. 6. RCA is a normal sized artery with proximal stenosis 10%, | | | mid diffuse 40% to 50% stenosis, and distal has no significant | | | stenosis. 7. Right PDA is not visualized. The right acute marginal | | | artery continues as a small right PDA. 8. Right AV groove artery | | | normal size, no significant stenosis. 9. Three right posterolateral | | | arteries are normal size, no significant stenosis. 10. Right | | | dominant circulation. CONTRAST USED 70 mL. COMPLICATIONS | | | None. ESTIMATED BLOOD LOSS Less than 50 mL. CONCLUSIONS 1. | | | Non-ST elevation myocardial infarction with severe systolic | | | dysfunction with ejection fraction 30% to 35%, and severe mitral | | | valve regurgitation. 2. Two-vessel disease including 100% occluded | | | ostial left anterior descending artery and mid-left circumflex | | | artery. 3. Intermediate disease in the right coronary artery with | | | negative fractional flow reserve of 0.87. 4. 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 RECOMMENDATIONS 1. Discussed with | | | cardiothoracic surgery the possibility of bypass surgery with targets | | | to the very distal LAD, third obtuse marginal, and mitral valve | | | replacement versus angioplasty for the third obtuse marginal and | | | reevaluation for the severity of the mitral valve regurgitation. 2. | | | Consider having YAQUELIN and viability study for further evaluation. | | | Read by BRYAN CEJA MD 09/25/2014 05:25 P | | + + + + + | Procedure Note | + + | Pineda Gomez Conversion - 02/04/2019 2:44 PM PDT | | | | DATE OF SERVICE | | September 25, 2014 | | | | PROCEDURES | | 1. Left heart catheterization through the right femoral artery. | | 2. Attempt for right radial approach, which was canceled due to total | | occlusion of the left subclavian artery as shown by selective left | | subclavian angiogram. | | 3. Selective coronary angiogram. | | 4. Left ventricular pressure recording without left ventriculogram. | | 5. Fractional flow reserve for the right coronary artery with a value of | | 0.87. | | 6. Selective angiogram for the left subclavian artery. | | 7. Selective angiogram for the right common femoral artery. | | 8. Closure of the right common femoral arteriotomy using a 6-Turkmen Mynx | | closure device. | | | | INDICATIONS | | Ms. Peguero is a 78-year-old lady with a history of hypertension, diabetes, | | congestive heart failure, coronary artery disease, and paroxysmal atrial | | fibrillation who was admitted with shortness of breath and palpitations, | | found to be in atrial fibrillation with rapid ventricular response, | | converted with IV Cardizem back to sinus rhythm. Echocardiogram showed an | | EF of 30% to 35%, with akinesia of the anterior wall. The decision was to | | proceed with left heart catheterization for further evaluation. | | | | DESCRIPTION OF PROCEDURE | | The procedure, details, alternatives, complications were explained for the | | patient. Informed consent was obtained. The patient was brought to the | | room and prepped in a sterile fashion. Timeout was performed. Conscious | | sedation administered by independent observer. The right wrist | | anesthetized with 1% lidocaine. Right radial artery cannulized with a | | 6-Turkmen Slender sheath. Verapamil 2.5 mg, nitroglycerin 200 mcg, and 5000 | | international units of heparin given through the sheath. | | | | Over a 260 exchange wire I tried to advance the FL4 diagnostic catheter to | | the ascending aorta but I had to stop at the right subclavian artery. I | | tried to advance an angled stiff Zip Glidewire with no success. Then I | | removed the wires. I took an angiogram for the right subclavian artery and | | it showed total occlusion of the right subclavian artery. I removed the | | catheter and we decided to switch to the femoral approach. | | | | The right groin anesthetized with 1% lidocaine. Under fluoroscopic | | guidance, using a micropuncture needle, the right common femoral artery | | cannulized with a 6-Turkmen sheath. Right common femoral angiogram was | | performed in the LAINEZ view. Over a guidewire an FL4 diagnostic catheter was | | advanced to the ascending aorta selectively engaging the left main. | | Contrast was injected. Selective angiogram for the left main, LAD, left | | circumflex artery performed in different views. | | | | Over a guidewire it was exchanged for a 5-Turkmen FR4 diagnostic catheter | | that was advanced to the left ventricle and pressure was recorded without | | left ventriculogram. Then the catheter was used to selectively engage the | | RCA. Contrast was injected. Selective angiogram for the RCA was performed | | in different views. Then the catheter was used to selective engage the | | right subclavian artery. Contrast was injected. Selective angiogram was | | performed in different views. The catheter was used to selectively engage | | the left subclavian artery. Contrast was injected. Selective angiogram was | | performed. | | | | Over a guidewire the catheter was exchanged for a 6-Turkmen JR4 guide that | | was advanced to the ascending aorta. The patient was given IV heparin to | | have an ACT more than 200. FFR wire was normalized in the ascending aorta. | | Guide selectively engaged the RCA. The FFR wire was advanced to the distal | | RCA. The guide was pulled back to the ascending aorta. Adenosine was | | started at 140 mcg/kg/min for 3 minutes with a value of 0.87, and was | | considered to be negative. The FFR wire was removed. Selective angiogram | | was done for the RCA showing no complications. Guide was removed. Sheath | | was removed. The arteriotomy was closed using a 6-Turkmen Mynx closure | | device with good hemostasis. The right radial sheath was removed. A TR | | band was applied with good hemostasis. The patient was transferred back to | | the room in stable condition. | | | | FINDINGS | | HEMODYNAMICS | | 1. Systemic pressure 114/57. | | 2. Pressure in the right subclavian artery 86/64. | | 3. Left ventricular end-diastolic pressure 30. | | 4. No significant gradient across the aortic valve. | | | | ANGIOGRAM | | 1. Left main is normal size, no significant stenosis. | | 2. LAD 100% occluded at the ostium with no flow in the stent that is | | visualized in the proximal LAD. The very distal part of the LAD near | | the apex is shown by right to left collaterals. | | 3. First and second diagonals are visualized by left to left collaterals, | | with no significant stenosis. They are occluded at the ostium. Third | | diagonal is not visualized. | | 4. Left circumflex artery is a normal sized artery with 90% stenosis | | between the second and third obtuse marginal. | | 5. First obtuse marginal is a high takeoff, tiny, no significant stenosis. | | Second obtuse marginal is small, no significant stenosis. Third obtuse | | marginal is normal size, no significant stenosis. | | 6. RCA is a normal sized artery with proximal stenosis 10%, mid diffuse | | 40% to 50% stenosis, and distal has no significant stenosis. | | 7. Right PDA is not visualized. The right acute marginal artery continues | | as a small right PDA. | | 8. Right AV groove artery normal size, no significant stenosis. | | 9. Three right posterolateral arteries are normal size, no significant | | stenosis. | | 10. Right dominant circulation. | | | | CONTRAST USED | | 70 mL. | | | | COMPLICATIONS | | None. | | | | ESTIMATED BLOOD LOSS | | Less than 50 mL. | | | | CONCLUSIONS | | 1. Non-ST elevation myocardial infarction with severe systolic dysfunction | | with ejection fraction 30% to 35%, and severe mitral valve | | regurgitation. | | 2. Two-vessel disease including 100% occluded ostial left anterior | | descending artery and mid-left circumflex artery. | | 3. Intermediate disease in the right coronary artery with negative | | fractional flow reserve of 0.87. | | 4. 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 | | | | RECOMMENDATIONS | | 1. Discussed with cardiothoracic surgery the possibility of bypass surgery | | with targets to the very distal LAD, third obtuse marginal, and mitral | | valve replacement versus angioplasty for the third obtuse marginal and | | reevaluation for the severity of the mitral valve regurgitation. | | 2. Consider having YAQUELIN and viability study for further evaluation. | | | | Read by BRYAN CEJA MD 09/25/2014 05:25 P | | | | | + + CV CARDIAC PROCEDURE (09/25/2014 5:28 PM PDT) + + | Specimen | + + | | + + + + + | Narrative | Performed At | + + + | | | | | | | DATE OF SERVICE September 25, 2014 PROCEDURES 1. Left heart | | | catheterization through the right femoral artery. 2. Attempt for | | | right radial approach, which was canceled due to total occlusion of | | | the left subclavian artery as shown by selective left subclavian | | | angiogram. 3. Selective coronary angiogram. 4. Left ventricular | | | pressure recording without left ventriculogram. 5. Fractional flow | | | reserve for the right coronary artery with a value of 0.87. 6. | | | Selective angiogram for the left subclavian artery. 7. Selective | | | angiogram for the right common femoral artery. 8. Closure of the | | | right common femoral arteriotomy using a 6-Turkmen Mynx closure | | | device. INDICATIONS Ms. Peguero is a 78-year-old lady with a | | | history of hypertension, diabetes, congestive heart failure, coronary | | | artery disease, and paroxysmal atrial fibrillation who was admitted | | | with shortness of breath and palpitations, found to be in atrial | | | fibrillation with rapid ventricular response, converted with IV | | | Cardizem back to sinus rhythm. Echocardiogram showed an EF of 30% to | | | 35%, with akinesia of the anterior wall. The decision was to proceed | | | with left heart catheterization for further evaluation. | | | DESCRIPTION OF PROCEDURE The procedure, details, alternatives, | | | complications were explained for the patient. Informed consent was | | | obtained. The patient was brought to the room and prepped in a | | | sterile fashion. Timeout was performed. Conscious sedation | | | administered by independent observer. The right wrist anesthetized | | | with 1% lidocaine. Right radial artery cannulized with a 6-Turkmen | | | Slender sheath. Verapamil 2.5 mg, nitroglycerin 200 mcg, and 5000 | | | international units of heparin given through the sheath. Over a | | | 260 exchange wire I tried to advance the FL4 diagnostic catheter to | | | the ascending aorta but I had to stop at the right subclavian artery. | | | I tried to advance an angled stiff Zip Glidewire with no success. | | | Then I removed the wires. I took an angiogram for the right | | | subclavian artery and it showed total occlusion of the right | | | subclavian artery. I removed the catheter and we decided to switch to | | | the femoral approach. The right groin anesthetized with 1% | | | lidocaine. Under fluoroscopic guidance, using a micropuncture needle, | | | the right common femoral artery cannulized with a 6-Turkmen sheath. | | | Right common femoral angiogram was performed in the LAINEZ view. Over a | | | guidewire an FL4 diagnostic catheter was advanced to the ascending | | | aorta selectively engaging the left main. Contrast was injected. | | | Selective angiogram for the left main, LAD, left circumflex artery | | | performed in different views. Over a guidewire it was exchanged | | | for a 5-Turkmen FR4 diagnostic catheter that was advanced to the left | | | ventricle and pressure was recorded without left ventriculogram. Then | | | the catheter was used to selectively engage the RCA. Contrast was | | | injected. Selective angiogram for the RCA was performed in different | | | views. Then the catheter was used to selective engage the right | | | subclavian artery. Contrast was injected. Selective angiogram was | | | performed in different views. The catheter was used to selectively | | | engage the left subclavian artery. Contrast was injected. Selective | | | angiogram was performed. Over a guidewire the catheter was | | | exchanged for a 6-Turkmen JR4 guide that was advanced to the ascending | | | aorta. The patient was given IV heparin to have an ACT more than | | | 200. FFR wire was normalized in the ascending aorta. Guide | | | selectively engaged the RCA. The FFR wire was advanced to the distal | | | RCA. The guide was pulled back to the ascending aorta. Adenosine was | | | started at 140 mcg/kg/min for 3 minutes with a value of 0.87, and was | | | considered to be negative. The FFR wire was removed. Selective | | | angiogram was done for the RCA showing no complications. Guide was | | | removed. Sheath was removed. The arteriotomy was closed using a | | | 6-Turkmen Mynx closure device with good hemostasis. The right radial | | | sheath was removed. A TR band was applied with good hemostasis. The | | | patient was transferred back to the room in stable condition. | | | FINDINGS HEMODYNAMICS 1. Systemic pressure 114/57. 2. Pressure in | | | the right subclavian artery 86/64. 3. Left ventricular end-diastolic | | | pressure 30. 4. No significant gradient across the aortic valve. | | | ANGIOGRAM 1. Left main is normal size, no significant stenosis. 2. | | | LAD 100% occluded at the ostium with no flow in the stent that is | | | visualized in the proximal LAD. The very distal part of the LAD near | | | the apex is shown by right to left collaterals. 3. First and second | | | diagonals are visualized by left to left collaterals, with no | | | significant stenosis. They are occluded at the ostium. Third diagonal | | | is not visualized. 4. Left circumflex artery is a normal sized | | | artery with 90% stenosis between the second and third obtuse | | | marginal. 5. First obtuse marginal is a high takeoff, tiny, no | | | significant stenosis. Second obtuse marginal is small, no significant | | | stenosis. Third obtuse marginal is normal size, no significant | | | stenosis. 6. RCA is a normal sized artery with proximal stenosis 10%, | | | mid diffuse 40% to 50% stenosis, and distal has no significant | | | stenosis. 7. Right PDA is not visualized. The right acute marginal | | | artery continues as a small right PDA. 8. Right AV groove artery | | | normal size, no significant stenosis. 9. Three right posterolateral | | | arteries are normal size, no significant stenosis. 10. Right | | | dominant circulation. CONTRAST USED 70 mL. COMPLICATIONS | | | None. ESTIMATED BLOOD LOSS Less than 50 mL. CONCLUSIONS 1. | | | Non-ST elevation myocardial infarction with severe systolic | | | dysfunction with ejection fraction 30% to 35%, and severe mitral | | | valve regurgitation. 2. Two-vessel disease including 100% occluded | | | ostial left anterior descending artery and mid-left circumflex | | | artery. 3. Intermediate disease in the right coronary artery with | | | negative fractional flow reserve of 0.87. 4. 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 RECOMMENDATIONS 1. Discussed with | | | cardiothoracic surgery the possibility of bypass surgery with targets | | | to the very distal LAD, third obtuse marginal, and mitral valve | | | replacement versus angioplasty for the third obtuse marginal and | | | reevaluation for the severity of the mitral valve regurgitation. 2. | | | Consider having YAQUELIN and viability study for further evaluation. | | | Read by BRYAN CEJA MD 09/25/2014 05:25 P | | + + + + + | Procedure Note | + + | Pineda Gomez Conversion - 02/04/2019 2:44 PM PDT | | | | DATE OF SERVICE | | September 25, 2014 | | | | PROCEDURES | | 1. Left heart catheterization through the right femoral artery. | | 2. Attempt for right radial approach, which was canceled due to total | | occlusion of the left subclavian artery as shown by selective left | | subclavian angiogram. | | 3. Selective coronary angiogram. | | 4. Left ventricular pressure recording without left ventriculogram. | | 5. Fractional flow reserve for the right coronary artery with a value of | | 0.87. | | 6. Selective angiogram for the left subclavian artery. | | 7. Selective angiogram for the right common femoral artery. | | 8. Closure of the right common femoral arteriotomy using a 6-Turkmen Mynx | | closure device. | | | | INDICATIONS | | Ms. Peguero is a 78-year-old lady with a history of hypertension, diabetes, | | congestive heart failure, coronary artery disease, and paroxysmal atrial | | fibrillation who was admitted with shortness of breath and palpitations, | | found to be in atrial fibrillation with rapid ventricular response, | | converted with IV Cardizem back to sinus rhythm. Echocardiogram showed an | | EF of 30% to 35%, with akinesia of the anterior wall. The decision was to | | proceed with left heart catheterization for further evaluation. | | | | DESCRIPTION OF PROCEDURE | | The procedure, details, alternatives, complications were explained for the | | patient. Informed consent was obtained. The patient was brought to the | | room and prepped in a sterile fashion. Timeout was performed. Conscious | | sedation administered by independent observer. The right wrist | | anesthetized with 1% lidocaine. Right radial artery cannulized with a | | 6-Turkmen Slender sheath. Verapamil 2.5 mg, nitroglycerin 200 mcg, and 5000 | | international units of heparin given through the sheath. | | | | Over a 260 exchange wire I tried to advance the FL4 diagnostic catheter to | | the ascending aorta but I had to stop at the right subclavian artery. I | | tried to advance an angled stiff Zip Glidewire with no success. Then I | | removed the wires. I took an angiogram for the right subclavian artery and | | it showed total occlusion of the right subclavian artery. I removed the | | catheter and we decided to switch to the femoral approach. | | | | The right groin anesthetized with 1% lidocaine. Under fluoroscopic | | guidance, using a micropuncture needle, the right common femoral artery | | cannulized with a 6-Turkmen sheath. Right common femoral angiogram was | | performed in the LAINEZ view. Over a guidewire an FL4 diagnostic catheter was | | advanced to the ascending aorta selectively engaging the left main. | | Contrast was injected. Selective angiogram for the left main, LAD, left | | circumflex artery performed in different views. | | | | Over a guidewire it was exchanged for a 5-Turkmen FR4 diagnostic catheter | | that was advanced to the left ventricle and pressure was recorded without | | left ventriculogram. Then the catheter was used to selectively engage the | | RCA. Contrast was injected. Selective angiogram for the RCA was performed | | in different views. Then the catheter was used to selective engage the | | right subclavian artery. Contrast was injected. Selective angiogram was | | performed in different views. The catheter was used to selectively engage | | the left subclavian artery. Contrast was injected. Selective angiogram was | | performed. | | | | Over a guidewire the catheter was exchanged for a 6-Turkmen JR4 guide that | | was advanced to the ascending aorta. The patient was given IV heparin to | | have an ACT more than 200. FFR wire was normalized in the ascending aorta. | | Guide selectively engaged the RCA. The FFR wire was advanced to the distal | | RCA. The guide was pulled back to the ascending aorta. Adenosine was | | started at 140 mcg/kg/min for 3 minutes with a value of 0.87, and was | | considered to be negative. The FFR wire was removed. Selective angiogram | | was done for the RCA showing no complications. Guide was removed. Sheath | | was removed. The arteriotomy was closed using a 6-Turkmen Mynx closure | | device with good hemostasis. The right radial sheath was removed. A TR | | band was applied with good hemostasis. The patient was transferred back to | | the room in stable condition. | | | | FINDINGS | | HEMODYNAMICS | | 1. Systemic pressure 114/57. | | 2. Pressure in the right subclavian artery 86/64. | | 3. Left ventricular end-diastolic pressure 30. | | 4. No significant gradient across the aortic valve. | | | | ANGIOGRAM | | 1. Left main is normal size, no significant stenosis. | | 2. LAD 100% occluded at the ostium with no flow in the stent that is | | visualized in the proximal LAD. The very distal part of the LAD near | | the apex is shown by right to left collaterals. | | 3. First and second diagonals are visualized by left to left collaterals, | | with no significant stenosis. They are occluded at the ostium. Third | | diagonal is not visualized. | | 4. Left circumflex artery is a normal sized artery with 90% stenosis | | between the second and third obtuse marginal. | | 5. First obtuse marginal is a high takeoff, tiny, no significant stenosis. | | Second obtuse marginal is small, no significant stenosis. Third obtuse | | marginal is normal size, no significant stenosis. | | 6. RCA is a normal sized artery with proximal stenosis 10%, mid diffuse | | 40% to 50% stenosis, and distal has no significant stenosis. | | 7. Right PDA is not visualized. The right acute marginal artery continues | | as a small right PDA. | | 8. Right AV groove artery normal size, no significant stenosis. | | 9. Three right posterolateral arteries are normal size, no significant | | stenosis. | | 10. Right dominant circulation. | | | | CONTRAST USED | | 70 mL. | | | | COMPLICATIONS | | None. | | | | ESTIMATED BLOOD LOSS | | Less than 50 mL. | | | | CONCLUSIONS | | 1. Non-ST elevation myocardial infarction with severe systolic dysfunction | | with ejection fraction 30% to 35%, and severe mitral valve | | regurgitation. | | 2. Two-vessel disease including 100% occluded ostial left anterior | | descending artery and mid-left circumflex artery. | | 3. Intermediate disease in the right coronary artery with negative | | fractional flow reserve of 0.87. | | 4. 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 | | | | RECOMMENDATIONS | | 1. Discussed with cardiothoracic surgery the possibility of bypass surgery | | with targets to the very distal LAD, third obtuse marginal, and mitral | | valve replacement versus angioplasty for the third obtuse marginal and | | reevaluation for the severity of the mitral valve regurgitation. | | 2. Consider having YAQUELIN and viability study for further evaluation. | | | | Read by BRYAN CEJA MD 09/25/2014 05:25 P | | | | | + + CV CARDIAC PROCEDURE (09/25/2014 5:28 PM PDT) + + | Specimen | + + | | + + + + + | Narrative | Performed At | + + + | | | | | | | DATE OF SERVICE September 25, 2014 PROCEDURES 1. Left heart | | | catheterization through the right femoral artery. 2. Attempt for | | | right radial approach, which was canceled due to total occlusion of | | | the left subclavian artery as shown by selective left subclavian | | | angiogram. 3. Selective coronary angiogram. 4. Left ventricular | | | pressure recording without left ventriculogram. 5. Fractional flow | | | reserve for the right coronary artery with a value of 0.87. 6. | | | Selective angiogram for the left subclavian artery. 7. Selective | | | angiogram for the right common femoral artery. 8. Closure of the | | | right common femoral arteriotomy using a 6-Turkmen Mynx closure | | | device. INDICATIONS Ms. Peguero is a 78-year-old lady with a | | | history of hypertension, diabetes, congestive heart failure, coronary | | | artery disease, and paroxysmal atrial fibrillation who was admitted | | | with shortness of breath and palpitations, found to be in atrial | | | fibrillation with rapid ventricular response, converted with IV | | | Cardizem back to sinus rhythm. Echocardiogram showed an EF of 30% to | | | 35%, with akinesia of the anterior wall. The decision was to proceed | | | with left heart catheterization for further evaluation. | | | DESCRIPTION OF PROCEDURE The procedure, details, alternatives, | | | complications were explained for the patient. Informed consent was | | | obtained. The patient was brought to the room and prepped in a | | | sterile fashion. Timeout was performed. Conscious sedation | | | administered by independent observer. The right wrist anesthetized | | | with 1% lidocaine. Right radial artery cannulized with a 6-Turkmen | | | Slender sheath. Verapamil 2.5 mg, nitroglycerin 200 mcg, and 5000 | | | international units of heparin given through the sheath. Over a | | | 260 exchange wire I tried to advance the FL4 diagnostic catheter to | | | the ascending aorta but I had to stop at the right subclavian artery. | | | I tried to advance an angled stiff Zip Glidewire with no success. | | | Then I removed the wires. I took an angiogram for the right | | | subclavian artery and it showed total occlusion of the right | | | subclavian artery. I removed the catheter and we decided to switch to | | | the femoral approach. The right groin anesthetized with 1% | | | lidocaine. Under fluoroscopic guidance, using a micropuncture needle, | | | the right common femoral artery cannulized with a 6-Turkmen sheath. | | | Right common femoral angiogram was performed in the LAINEZ view. Over a | | | guidewire an FL4 diagnostic catheter was advanced to the ascending | | | aorta selectively engaging the left main. Contrast was injected. | | | Selective angiogram for the left main, LAD, left circumflex artery | | | performed in different views. Over a guidewire it was exchanged | | | for a 5-Turkmen FR4 diagnostic catheter that was advanced to the left | | | ventricle and pressure was recorded without left ventriculogram. Then | | | the catheter was used to selectively engage the RCA. Contrast was | | | injected. Selective angiogram for the RCA was performed in different | | | views. Then the catheter was used to selective engage the right | | | subclavian artery. Contrast was injected. Selective angiogram was | | | performed in different views. The catheter was used to selectively | | | engage the left subclavian artery. Contrast was injected. Selective | | | angiogram was performed. Over a guidewire the catheter was | | | exchanged for a 6-Turkmen JR4 guide that was advanced to the ascending | | | aorta. The patient was given IV heparin to have an ACT more than | | | 200. FFR wire was normalized in the ascending aorta. Guide | | | selectively engaged the RCA. The FFR wire was advanced to the distal | | | RCA. The guide was pulled back to the ascending aorta. Adenosine was | | | started at 140 mcg/kg/min for 3 minutes with a value of 0.87, and was | | | considered to be negative. The FFR wire was removed. Selective | | | angiogram was done for the RCA showing no complications. Guide was | | | removed. Sheath was removed. The arteriotomy was closed using a | | | 6-Turkmen Mynx closure device with good hemostasis. The right radial | | | sheath was removed. A TR band was applied with good hemostasis. The | | | patient was transferred back to the room in stable condition. | | | FINDINGS HEMODYNAMICS 1. Systemic pressure 114/57. 2. Pressure in | | | the right subclavian artery 86/64. 3. Left ventricular end-diastolic | | | pressure 30. 4. No significant gradient across the aortic valve. | | | ANGIOGRAM 1. Left main is normal size, no significant stenosis. 2. | | | LAD 100% occluded at the ostium with no flow in the stent that is | | | visualized in the proximal LAD. The very distal part of the LAD near | | | the apex is shown by right to left collaterals. 3. First and second | | | diagonals are visualized by left to left collaterals, with no | | | significant stenosis. They are occluded at the ostium. Third diagonal | | | is not visualized. 4. Left circumflex artery is a normal sized | | | artery with 90% stenosis between the second and third obtuse | | | marginal. 5. First obtuse marginal is a high takeoff, tiny, no | | | significant stenosis. Second obtuse marginal is small, no significant | | | stenosis. Third obtuse marginal is normal size, no significant | | | stenosis. 6. RCA is a normal sized artery with proximal stenosis 10%, | | | mid diffuse 40% to 50% stenosis, and distal has no significant | | | stenosis. 7. Right PDA is not visualized. The right acute marginal | | | artery continues as a small right PDA. 8. Right AV groove artery | | | normal size, no significant stenosis. 9. Three right posterolateral | | | arteries are normal size, no significant stenosis. 10. Right | | | dominant circulation. CONTRAST USED 70 mL. COMPLICATIONS | | | None. ESTIMATED BLOOD LOSS Less than 50 mL. CONCLUSIONS 1. | | | Non-ST elevation myocardial infarction with severe systolic | | | dysfunction with ejection fraction 30% to 35%, and severe mitral | | | valve regurgitation. 2. Two-vessel disease including 100% occluded | | | ostial left anterior descending artery and mid-left circumflex | | | artery. 3. Intermediate disease in the right coronary artery with | | | negative fractional flow reserve of 0.87. 4. 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 RECOMMENDATIONS 1. Discussed with | | | cardiothoracic surgery the possibility of bypass surgery with targets | | | to the very distal LAD, third obtuse marginal, and mitral valve | | | replacement versus angioplasty for the third obtuse marginal and | | | reevaluation for the severity of the mitral valve regurgitation. 2. | | | Consider having YAQUELIN and viability study for further evaluation. | | | Read by BRYAN CEJA MD 09/25/2014 05:25 P | | + + + + + | Procedure Note | + + | Pineda Gomez Conversion - 02/04/2019 2:44 PM PDT | | | | DATE OF SERVICE | | September 25, 2014 | | | | PROCEDURES | | 1. Left heart catheterization through the right femoral artery. | | 2. Attempt for right radial approach, which was canceled due to total | | occlusion of the left subclavian artery as shown by selective left | | subclavian angiogram. | | 3. Selective coronary angiogram. | | 4. Left ventricular pressure recording without left ventriculogram. | | 5. Fractional flow reserve for the right coronary artery with a value of | | 0.87. | | 6. Selective angiogram for the left subclavian artery. | | 7. Selective angiogram for the right common femoral artery. | | 8. Closure of the right common femoral arteriotomy using a 6-Turkmen Mynx | | closure device. | | | | INDICATIONS | | Ms. Peguero is a 78-year-old lady with a history of hypertension, diabetes, | | congestive heart failure, coronary artery disease, and paroxysmal atrial | | fibrillation who was admitted with shortness of breath and palpitations, | | found to be in atrial fibrillation with rapid ventricular response, | | converted with IV Cardizem back to sinus rhythm. Echocardiogram showed an | | EF of 30% to 35%, with akinesia of the anterior wall. The decision was to | | proceed with left heart catheterization for further evaluation. | | | | DESCRIPTION OF PROCEDURE | | The procedure, details, alternatives, complications were explained for the | | patient. Informed consent was obtained. The patient was brought to the | | room and prepped in a sterile fashion. Timeout was performed. Conscious | | sedation administered by independent observer. The right wrist | | anesthetized with 1% lidocaine. Right radial artery cannulized with a | | 6-Turkmen Slender sheath. Verapamil 2.5 mg, nitroglycerin 200 mcg, and 5000 | | international units of heparin given through the sheath. | | | | Over a 260 exchange wire I tried to advance the FL4 diagnostic catheter to | | the ascending aorta but I had to stop at the right subclavian artery. I | | tried to advance an angled stiff Zip Glidewire with no success. Then I | | removed the wires. I took an angiogram for the right subclavian artery and | | it showed total occlusion of the right subclavian artery. I removed the | | catheter and we decided to switch to the femoral approach. | | | | The right groin anesthetized with 1% lidocaine. Under fluoroscopic | | guidance, using a micropuncture needle, the right common femoral artery | | cannulized with a 6-Turkmen sheath. Right common femoral angiogram was | | performed in the LAINEZ view. Over a guidewire an FL4 diagnostic catheter was | | advanced to the ascending aorta selectively engaging the left main. | | Contrast was injected. Selective angiogram for the left main, LAD, left | | circumflex artery performed in different views. | | | | Over a guidewire it was exchanged for a 5-Turkmen FR4 diagnostic catheter | | that was advanced to the left ventricle and pressure was recorded without | | left ventriculogram. Then the catheter was used to selectively engage the | | RCA. Contrast was injected. Selective angiogram for the RCA was performed | | in different views. Then the catheter was used to selective engage the | | right subclavian artery. Contrast was injected. Selective angiogram was | | performed in different views. The catheter was used to selectively engage | | the left subclavian artery. Contrast was injected. Selective angiogram was | | performed. | | | | Over a guidewire the catheter was exchanged for a 6-Turkmen JR4 guide that | | was advanced to the ascending aorta. The patient was given IV heparin to | | have an ACT more than 200. FFR wire was normalized in the ascending aorta. | | Guide selectively engaged the RCA. The FFR wire was advanced to the distal | | RCA. The guide was pulled back to the ascending aorta. Adenosine was | | started at 140 mcg/kg/min for 3 minutes with a value of 0.87, and was | | considered to be negative. The FFR wire was removed. Selective angiogram | | was done for the RCA showing no complications. Guide was removed. Sheath | | was removed. The arteriotomy was closed using a 6-Turkmen Mynx closure | | device with good hemostasis. The right radial sheath was removed. A TR | | band was applied with good hemostasis. The patient was transferred back to | | the room in stable condition. | | | | FINDINGS | | HEMODYNAMICS | | 1. Systemic pressure 114/57. | | 2. Pressure in the right subclavian artery 86/64. | | 3. Left ventricular end-diastolic pressure 30. | | 4. No significant gradient across the aortic valve. | | | | ANGIOGRAM | | 1. Left main is normal size, no significant stenosis. | | 2. LAD 100% occluded at the ostium with no flow in the stent that is | | visualized in the proximal LAD. The very distal part of the LAD near | | the apex is shown by right to left collaterals. | | 3. First and second diagonals are visualized by left to left collaterals, | | with no significant stenosis. They are occluded at the ostium. Third | | diagonal is not visualized. | | 4. Left circumflex artery is a normal sized artery with 90% stenosis | | between the second and third obtuse marginal. | | 5. First obtuse marginal is a high takeoff, tiny, no significant stenosis. | | Second obtuse marginal is small, no significant stenosis. Third obtuse | | marginal is normal size, no significant stenosis. | | 6. RCA is a normal sized artery with proximal stenosis 10%, mid diffuse | | 40% to 50% stenosis, and distal has no significant stenosis. | | 7. Right PDA is not visualized. The right acute marginal artery continues | | as a small right PDA. | | 8. Right AV groove artery normal size, no significant stenosis. | | 9. Three right posterolateral arteries are normal size, no significant | | stenosis. | | 10. Right dominant circulation. | | | | CONTRAST USED | | 70 mL. | | | | COMPLICATIONS | | None. | | | | ESTIMATED BLOOD LOSS | | Less than 50 mL. | | | | CONCLUSIONS | | 1. Non-ST elevation myocardial infarction with severe systolic dysfunction | | with ejection fraction 30% to 35%, and severe mitral valve | | regurgitation. | | 2. Two-vessel disease including 100% occluded ostial left anterior | | descending artery and mid-left circumflex artery. | | 3. Intermediate disease in the right coronary artery with negative | | fractional flow reserve of 0.87. | | 4. 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 | | | | RECOMMENDATIONS | | 1. Discussed with cardiothoracic surgery the possibility of bypass surgery | | with targets to the very distal LAD, third obtuse marginal, and mitral | | valve replacement versus angioplasty for the third obtuse marginal and | | reevaluation for the severity of the mitral valve regurgitation. | | 2. Consider having YAQUELIN and viability study for further evaluation. | | | | Read by BRYAN CEJA MD 09/25/2014 05:25 P | | | | | + + Activated clotting time (09/25/2014 5:05 PM PDT) + + + + + + | Component | Value | Ref Range | Performed | Pathologist | | | | | At | Signature | + + + + + + | Activated | 177 (H)Comment: Testing | 74 - 137 | EXTERNAL | | | Clotting | performed at [facility] [place];888 | seconds | LAB | | | time, POC | Gina Ledesma;[place], [place] | | | | | | [id number] | | | | + + + + + + + + | Specimen | + + | | + + + +---------+ + + | Performing | Address | City/State/Zipcode | Phone Number | | Organization | | | | + +---------+ + + | EXTERNAL LAB | | | | + +---------+ + + ECG 12 lead (09/25/2014 11:53 AM PDT) + + + + + + | Component | Value | Ref Range | Performed | Pathologist | | | | | At | Signature | + + + + + + | DIAGNOSIS: | Normal sinus rhythmLeft | | EXTERNAL | | | | axis deviationIncomplete | | LAB | | | | left bundle branch | | | | | | blockST & T wave | | | | | | abnormality, consider | | | | | | anterolateral | | | | | | ischemiaProlonged | | | | | | QTAbnormal ECGWhen | | | | | | compared with ECG of | | | | | | 24-SEP-2014 | | | | | | 16:06,Premature atrial | | | | | | complexes are no longer | | | | | | PresentConfirmed by | | | | | | MIGUEL GOMEZ ([id number]) on | | | | | | 09/25/2014 10:31:53 PM | | | | + + + + + + + + | Specimen | + + | | + + + + + | Narrative | Performed At | + + + | Historically converted procedure from [facility] environment | EXTERNAL LAB | + + + + +---------+ + + | Performing | Address | City/State/Zipcode | Phone Number | | Organization | | | | + +---------+ + + | EXTERNAL LAB | | | | + +---------+ + + ECHO Complete (09/25/2014 10:57 AM PDT) + + | Specimen | + + | | + + + + + | Impressions | Performed At | + + + | 1. Overall left ventricular systolic function is moderate-severely | | | impaired with, an EF between 30 - 35 %. 2. Restrictive LV diastolic | | | filling pattern, consistent with elevated LA pressure and severe | | | dysfunction (grade III). 3. Akinesia of the mid-distal anterior wall, | | | distal inferior wall and apex (LAD territory). 4. Severe mitral | | | regurgitation is present. 5. There is moderate pulmonary | | | hypertension. | | + + + + + + | Narrative | Performed At | + + + | Patient Name: KIMBERLEE PEGUERO Date of : 1935 | | | Performing Physician: Bryan Ceja MD | | | | | | INDICATIONS SOB CHF, NEW ONSET ATRIAL FIB | | | CONCLUSIONS 1. Overall left ventricular systolic | | | function is moderate-severely impaired with, an EF between 30 - 35 %. | | | 2. Restrictive LV diastolic filling pattern, consistent with elevated | | | LA pressure and severe dysfunction (grade III). 3. Akinesia of the | | | mid-distal anterior wall, distal inferior wall and apex (LAD | | | territory). 4. Severe mitral regurgitation is present. 5. There is | | | moderate pulmonary hypertension. FINDINGS -------- ECG rhythm: | | | Sinus rhythm. Study: A 2-dimensional transthoracic echocardiogram | | | with m-mode, spectral and color flow Doppler was perfomed. Study: | | | This was a technically adequate study. Left Ventricle: Overall left | | | ventricular systolic function is moderate-severely impaired with, an | | | EF between 30 - 35 %. Left Ventricle: The left ventricle is mildly | | | dilated. Left Ventricle: Left ventricular wall thickness is normal. | | | Left Ventricle: Restrictive LV diastolic filling pattern, consistent | | | with elevated LA pressure and severe dysfunction (grade III). Left | | | Ventricle: Akinesia of the mid-distal anterior wall, distal inferior | | | wall and apex (LAD territory). Right Ventricle: The right ventricle | | | is normal in size. Right Ventricle: The right ventricular systolic | | | function is impaired. Left Atrium: The left atrium is borderline | | | mildly dilated. Right Atrium: The right atrial size is normal. | | | Aortic Valve: Aortic valve is trileaflet and is mildly thickened. | | | Aortic Valve: There is mild aortic valve sclerosis without stenosis. | | | Aortic Valve: There is no evidence of aortic regurgitation. Mitral | | | Valve: Severe mitral regurgitation is present Mitral Valve: , | | | predominately a posteriorly directed jet. Mitral Valve: Mild mitral | | | annular calcification present. Mitral Valve: Mild thickening of the | | | mitral valve leaflets. Tricuspid Valve: The tricuspid valve appears | | | structurally normal. Tricuspid Valve: [id number] tricuspid | | | regurgitation present. Tricuspid Valve: There is moderate pulmonary | | | hypertension. Tricuspid Valve: The right ventricular systolic | | | pressure (pulmonary artery systolic pressure), as measured by Doppler, | | | is 50.34mmHg. Pulmonic Valve: The pulmonic valve was not well | | | visualized. Pulmonic Valve: Trace pulmonic regurgitation. | | | Pericardium: There is no pericardial effusion. IVC/Hepatic Veins: The | | | IVC is normal size (1.5-2.5cm) and collapses >50% with sniff, | | | consistent with central venous pressures of 5-10mmHg. Pulmonary | | | Veins: The flow patterns, measured by Doppler, indicate systolic flow | | | reversal suggestive of severe MR. MEASUREMENTS | | | IVC: 1.64 cm LA Major: 5.25 cm EDV(Teich): 154.04 ml IVSd: | | | 0.79 cm LVIDd: 5.60 cm LVPWd: 0.88 cm LVOT Diam: 1.79 | | | cm %FS: 22.29 % EF(Teich): 44.39 % ESV(Teich): 85.66 ml | | | IVSs: 1.00 cm LVIDs: 4.35 cm LVPWs: 1.23 cm SV(Teich): | | | 68.38 ml RA Major: 4.58 cm RVIDd: 3.08 cm LVEF MOD A2C: | | | 36.37 % SV MOD A2C: 50.30 ml LVEF MOD A4C: 29.05 % SV MOD | | | A4C: 37.50 ml EF Biplane: 34.24 % LVEDV MOD BP: 135.30 ml | | | LVESV MOD BP: 88.97 ml LVEDV MOD A2C: 138.27 ml LVLd A2C: | | | 8.80 cm LVEDV MOD A4C: 129.08 ml LVLd A4C: 9.06 cm LVESV MOD | | | A2C: 87.97 ml LVLs A2C: 8.36 cm LVESV MOD A4C: 91.57 ml | | | LVLs A4C: 8.27 cm CO Biplane: 2.84 l/min HR: 61.34 BPM | | | R-R: 978.08 ms LAESV(A-L): 52.07 ml LAESV Index (A-L): | | | 28.92 ml/m2 LAAs A2C: 18.45 cm2 LAESV A-L A2C: 51.84 ml LAESV | | | MOD A2C: 50.96 ml LALs A2C: 5.57 cm LAAs A4C: 17.24 cm2 | | | LAESV A-L A4C: 48.66 ml LAESV MOD A4C: 48.28 ml LALs A4C: | | | 5.18 cm Ao Diam: 2.54 cm AV Cusp: 1.77 cm LA Diam: 3.76 cm | | | LA/Ao: 1.47 %FS: 23.34 % EDV(Teich): 148.17 ml | | | EF(Teich): 46.20 % ESV(Teich): 79.70 ml IVSd: 0.78 cm | | | IVSs: 0.97 cm LVIDd: 5.51 cm LVIDs: 4.22 cm LVPWd: 0.78 | | | cm LVPWs: 1.38 cm SV(Teich): 68.47 ml IVC diameter: 0.97 | | | cm IVC collapse: 0.11 cm IVC % collapse: 87.02 % HR: 67.73 | | | BPM AV maxP.91 mmHg AV meanP.09 mmHg AV Vmax: | | | 1.40 m/s AV Vmean: 0.97 m/s AV VTI: 28.92 cm ИВАН Vmax: | | | 2.31 cm2 ИВАН (VTI): 2.22 cm2 AVAI (Vmax): 0.00 cm2/m2 AVAI | | | (VTI): 0.00 cm2/m2 LVCI Dopp: 2.46 l/minm2 LVCO Dopp: 4.43 | | | l/min HR: 68.95 BPM LVOT maxP.75 mmHg LVOT meanPG: | | | 3.41 mmHg LVSI Dopp: 35.74 ml/m2 LVSV Dopp: 64.34 ml LVOT | | | Vmax: 1.29 m/s LVOT Vmean: 0.85 m/s LVOT VTI: 25.55 cm MV | | | A Maciel: 0.68 m/s MV DecT: 237.93 ms MV E Maciel: 1.51 m/s MV | | | E/A Ratio: 2.22 MV PHT: 71.56 ms MVA By PHT: 3.07 cm2 MV A | | | Dur: 105.53 ms Septal e': 0.02 m/s Septal E/e': 61.50 | | | Lateral e': 0.07 m/s Lateral E/e': 19.15 P Vein A Dur: | | | 134.94 ms RAP: 5 mmHg RVSP: 50.34 mmHg TR maxP.34 | | | mmHg TR Vmax: 3.36 m/s TV A Maciel: 0.52 m/s TV Dec Hughes: | | | 1.34 m/s2 TV Dec Time: 304.58 ms TV E Maciel: 0.41 m/s TV E/A | | | Ratio: 0.77 Mixed Signal Design Engineer: ANGEL Authenticated by: Bryan Ceja MD | | | Report Date/Time: 09-25-2014 16:07:34 | | + + + + + | Procedure Note | + + | Pineda Gomez Conversion - 01/30/2019 8:18 AM PDT Patient Name: Yahaira PEGUERO | | : 1935 Performing Physician: Bryan Ceja | | INDICATIONS S | | OB CHF, NEW ONSET ATRIAL FIB CONCLUSIONS 1. Overall left ventricular systolic | | function is moderate-severely impaired with, an EF between 30 - 35 %.2. Restrictive LV | | diastolic filling pattern, consistent with elevated LA pressure and severe dysfunction | | (grade III).3. Akinesia of the mid-distal anterior wall, distal inferior wall and apex | | (LAD territory).4. Severe mitral regurgitation is present.5. There is moderate pulmonary | | hypertension. FINDINGS--------ECG rhythm: Sinus rhythm.Study: A 2-dimensional | | transthoracic echocardiogram with m-mode, spectral and color flow Doppler was | | perfomed.Study: This was a technically adequate study.Left Ventricle: Overall left | | ventricular systolic function is moderate-severely impaired with, an EF between 30 - 35 | | %.Left Ventricle: The left ventricle is mildly dilated.Left Ventricle: Left ventricular | | wall thickness is normal.Left Ventricle: Restrictive LV diastolic filling pattern, | | consistent with elevated LA pressure and severe dysfunction (grade III).Left Ventricle: | | Akinesia of the mid-distal anterior wall, distal inferior wall and apex (LAD | | territory).Right Ventricle: The right ventricle is normal in size.Right Ventricle: The | | right ventricular systolic function is impaired.Left Atrium: The left atrium is | | borderline mildly dilated.Right Atrium: The right atrial size is normal.Aortic Valve: | | Aortic valve is trileaflet and is mildly thickened.Aortic Valve: There is mild aortic | | valve sclerosis without stenosis.Aortic Valve: There is no evidence of aortic | | regurgitation.Mitral Valve: Severe mitral regurgitation is presentMitral Valve: , | | predominately a posteriorly directed jet.Mitral Valve: Mild mitral annular calcification | | present.Mitral Valve: Mild thickening of the mitral valve leaflets.Tricuspid Valve: The | | tricuspid valve appears structurally normal.Tricuspid Valve: Prxs-uy-[id number] tricuspid | | regurgitation present.Tricuspid Valve: There is moderate pulmonary | | hypertension.Tricuspid Valve: The right ventricular systolic pressure (pulmonary artery | | systolic pressure), as measured by Doppler, is 50.34mmHg.Pulmonic Valve: The pulmonic | | valve was not well visualized.Pulmonic Valve: Trace pulmonic regurgitation.Pericardium: | | There is no pericardial effusion.IVC/Hepatic Veins: The IVC is normal size (1.5-2.5cm) | | and collapses >50% with sniff, consistent with central venous pressures of | | 5-10mmHg.Pulmonary Veins: The flow patterns, measured by Doppler, indicate systolic flow | | reversal suggestive of severe MR. MEASUREMENTS IVC: 1.64 cmLA Major: | | 5.25 cmEDV(Teich): 154.04 mlIVSd: 0.79 cmLVIDd: 5.60 cmLVPWd: 0.88 cmLVOT Diam: | | 1.79 cm%FS: 22.29 %EF(Teich): 44.39 %ESV(Teich): 85.66 mlIVSs: 1.00 cmLVIDs: | | 4.35 cmLVPWs: 1.23 cmSV(Teich): 68.38 mlRA Major: 4.58 cmRVIDd: 3.08 cmLVEF MOD | | A2C: 36.37 %SV MOD A2C: 50.30 mlLVEF MOD A4C: 29.05 %SV MOD A4C: 37.50 mlEF | | Biplane: 34.24 %LVEDV MOD BP: 135.30 mlLVESV MOD BP: 88.97 mlLVEDV MOD A2C: | | 138.27 mlLVLd A2C: 8.80 cmLVEDV MOD A4C: 129.08 mlLVLd A4C: 9.06 cmLVESV MOD A2C: | | 87.97 mlLVLs A2C: 8.36 cmLVESV MOD A4C: 91.57 mlLVLs A4C: 8.27 cmCO Biplane: | | 2.84 l/minHR: 61.34 BPMR-R: 978.08 msLAESV(A-L): 52.07 mlLAESV Index (A-L): | | 28.92 ml/m2LAAs A2C: 18.45 [id number] A-L A2C: 51.84 mlLAESV MOD A2C: 50.96 mlLALs | | A2C: 5.57 cmLAAs A4C: 17.24 [id number] A-L A4C: 48.66 mlLAESV MOD A4C: 48.28 | | mlLALs A4C: 5.18 cmAo Diam: 2.54 cmAV Cusp: 1.77 cmLA Diam: 3.76 cmLA/Ao: | | 1.47%FS: 23.34 %EDV(Teich): 148.17 mlEF(Teich): 46.20 %ESV(Teich): 79.70 mlIVSd: | | 0.78 cmIVSs: 0.97 cmLVIDd: 5.51 cmLVIDs: 4.22 cmLVPWd: 0.78 cmLVPWs: 1.38 | | cmSV(Teich): 68.47 mlIVC diameter: 0.97 cmIVC collapse: 0.11 cmIVC % collapse: | | 87.02 %HR: 67.73 BPMAV maxP.91 mmHgAV meanP.09 mmHgAV Vmax: 1.40 m/Oksana | | Vmean: 0.97 m/Oksana VTI: 28.92 cmAVA Vmax: 2.31 cm2AVA (VTI): 2.22 [id number] (Vmax): | | 0.00 cm2/m2AVAI (VTI): 0.00 cm2/m2LVCI Dopp: 2.46 l/idos8NBRS Dopp: 4.43 | | l/minHR: 68.95 BPMLVOT maxP.75 mmHgLVOT meanP.41 mmHgLVSI Dopp: 35.74 | | ml/m2LVSV Dopp: 64.34 mlLVOT Vmax: 1.29 m/sLVOT Vmean: 0.85 m/sLVOT VTI: 25.55 | | cmMV A Maciel: 0.68 m/sMV DecT: 237.93 msMV E Maciel: 1.51 m/sMV E/A Ratio: 2.22MV | | PHT: 71.56 msMVA By PHT: 3.07 cm2MV A Dur: 105.53 msSeptal e': 0.02 m/sSeptal | | E/e': 61.50Lateral e': 0.07 m/sLateral E/e': 19.15P Vein A Dur: 134.94 msRAP: | | 5 mmHgRVSP: 50.34 mmHgTR maxP.34 mmHgTR Vmax: 3.36 m/sTV A Maciel: 0.52 m/sTV | | Dec Hughes: 1.34 m/s2TV Dec Time: 304.58 msTV E Maciel: 0.41 m/sTV E/A Ratio: 0.77 | | Mixed Signal Design Engineer: Joseticated by: Bryan Ceja MDReport Date/Time: 09-25-2014 16:07:34 | | IMPRESSION: 1. Overall left ventricular systolic function is moderate-severely impaired | | with, an EF between 30 - 35 %.2. Restrictive LV diastolic filling pattern, consistent | | with elevated LA pressure and severe dysfunction (grade III).3. Akinesia of the | | mid-distal anterior wall, distal inferior wall and apex (LAD territory).4. Severe mitral | | regurgitation is present.5. There is moderate pulmonary hypertension. | |IVSs: 1.00 cm | |LVIDs: 4.35 cm | |LVPWs: 1.23 cm | |SV(Teich): 68.38 ml | |RA Major: 4.58 cm | |RVIDd: 3.08 cm | |LVEF MOD A2C: 36.37 % | |SV MOD A2C: 50.30 ml | |LVEF MOD A4C: 29.05 % | |SV MOD A4C: 37.50 ml | |EF Biplane: 34.24 % | |LVEDV MOD BP: 135.30 ml | |LVESV MOD BP: 88.97 ml | |LVEDV MOD A2C: 138.27 ml | |LVLd A2C: 8.80 cm | |LVEDV MOD A4C: 129.08 ml | |LVLd A4C: 9.06 cm | |LVESV MOD A2C: 87.97 ml | |LVLs A2C: 8.36 cm | |LVESV MOD A4C: 91.57 ml | |LVLs A4C: 8.27 cm | |CO Biplane: 2.84 l/min | |HR: 61.34 BPM | |R-R: 978.08 ms | |LAESV(A-L): 52.07 ml | |LAESV Index (A-L): 28.92 ml/m2 | |LAAs A2C: 18.45 cm2 | |LAESV A-L A2C: 51.84 ml | |LAESV MOD A2C: 50.96 ml | |LALs A2C: 5.57 cm | |LAAs A4C: 17.24 cm2 | |LAESV A-L A4C: 48.66 ml | |LAESV MOD A4C: 48.28 ml | |LALs A4C: 5.18 cm | |Ao Diam: 2.54 cm | |AV Cusp: 1.77 cm | |LA Diam: 3.76 cm | |LA/Ao: 1.47 | |%FS: 23.34 % | |EDV(Teich): 148.17 ml | |EF(Teich): 46.20 % | |ESV(Teich): 79.70 ml | |IVSd: 0.78 cm | |IVSs: 0.97 cm | |LVIDd: 5.51 cm | |LVIDs: 4.22 cm | |LVPWd: 0.78 cm | |LVPWs: 1.38 cm | |SV(Teich): 68.47 ml | |IVC diameter: 0.97 cm | |IVC collapse: 0.11 cm | |IVC % collapse: 87.02 % | |HR: 67.73 BPM | |AV maxP.91 mmHg | |AV meanP.09 mmHg | |AV Vmax: 1.40 m/s | |AV Vmean: 0.97 m/s | |AV VTI: 28.92 cm | |ИВАН Vmax: 2.31 cm2 | |ИВАН (VTI): 2.22 cm2 | |AVAI (Vmax): 0.00 cm2/m2 | |AVAI (VTI): 0.00 cm2/m2 | |LVCI Dopp: 2.46 l/minm2 | |LVCO Dopp: 4.43 l/min | |HR: 68.95 BPM | |LVOT maxP.75 mmHg | |LVOT meanP.41 mmHg | |LVSI Dopp: 35.74 ml/m2 | |LVSV Dopp: 64.34 ml | |LVOT Vmax: 1.29 m/s | |LVOT Vmean: 0.85 m/s | |LVOT VTI: 25.55 cm | |MV A Maciel: 0.68 m/s | |MV DecT: 237.93 ms | |MV E Maciel: 1.51 m/s | |MV E/A Ratio: 2.22 | |MV PHT: 71.56 ms | |MVA By PHT: 3.07 cm2 | |MV A Dur: 105.53 ms | |Septal e': 0.02 m/s | |Septal E/e': 61.50 | |Lateral e': 0.07 m/s | |Lateral E/e': 19.15 | |P Vein A Dur: 134.94 ms | |RAP: 5 mmHg | |RVSP: 50.34 mmHg | |TR maxP.34 mmHg | |TR Vmax: 3.36 m/s | |TV A Maciel: 0.52 m/s | |TV Dec Hughes: 1.34 m/s2 | |TV Dec Time: 304.58 ms | |TV E Maciel: 0.41 m/s | |TV E/A Ratio: 0.77 | | | |Mixed Signal Design Engineer: KE | |Authenticated by: Bryan Ceja MD | |Report Date/Time: 09-25-2014 16:07:34 | | | |IMPRESSION: | |1. Overall left ventricular systolic function is moderate-severely impaired with, an EF bet ween 30 - 35 %. | |2. Restrictive LV diastolic filling pattern, consistent with elevated LA pressure and sever e dysfunction (grade III). | |3. Akinesia of the mid-distal anterior wall, distal inferior wall and apex (LAD territory). | |4. Severe mitral regurgitation is present. | |5. There is moderate pulmonary hypertension. | + + PTT (09/25/2014 10:07 AM PDT) + + + + + + | Component | Value | Ref Range | Performed | Pathologist | | | | | At | Signature | + + + + + + | aPTT, | 78 ()Comment: RESULT | 23 - 32 seconds | EXTERNAL | | | Patient | READ BACK BY:DR BARNES AT | | LAB | | | | [id number] BY AETesting | | | | | | performed at [facility];[address] | | | | | [address] [facility];[place], [place] | | | | | | [address] | | | | + + + + + + + + | Specimen | + + | Blood specimen | | (specimen) | + + + +---------+ + + | Performing | Address | City/State/Zipcode | Phone Number | | Organization | | | | + +---------+ + + | EXTERNAL LAB | | | | + +---------+ + + XR Chest 1 Vw (09/25/2014 6:43 AM PDT) + + | Specimen | + + | | + + + + + | Impressions | Performed At | + + + | 1. CHF with diffuse interstitial and mild central airspace | | | edema. 2. Persistent mild cardiac enlargement. Electronically | | | signed by Lopez Avila MD on 09/25/2014 7:48 AM | | + + + + + + | Narrative | Performed At | + + + | HISTORY: Shortness of breath. CHF. No onset atrial fibrillation. | | | COMPARISON: 09/24/12. TECHNIQUE: AP portable film of the chest | | | at 0555 hours FINDINGS: Persistent mild cardiac enlargement, now | | | with diffuse interstitial prominence and mild central airspace | | | prominence, consistent with evolving pulmonary edema. No effusions. | | + + + + + | Procedure Note | + + | Pineda Gomez Conversion - 01/30/2019 8:18 AM PDT HISTORY:Shortness of breath. CHF. No | | onset atrial fibrillation. COMPARISON:09/24/12. TECHNIQUE:AP portable film of the chest | | at 0555 hours FINDINGS:Persistent mild cardiac enlargement, now with diffuse | | interstitial prominence and mild central airspace prominence, consistent with evolving | | pulmonary edema. No effusions. IMPRESSION: 1. CHF with diffuse interstitial and mild | | central airspace edema.2. Persistent mild cardiac enlargement. | |AP portable film of the chest at 0555 hours | | | |FINDINGS: | |Persistent mild cardiac enlargement, now with diffuse interstitial prominence and mild cent ral airspace prominence, consistent with evolving pulmonary edema. No effusions. | | | |IMPRESSION: | |1. CHF with diffuse interstitial and mild central airspace edema. | |2. Persistent mild cardiac enlargement. | | | | | + + Troponin I (09/25/2014 6:00 AM PDT) + + + + + + | Component | Value | Ref Range | Performed | Pathologist | | | | | At | Signature | + + + + + + | Troponin I, | 0.115 (H)Comment: 0.00 | 0.00 - 0.10 | EXTERNAL | | | Qual | to 0.10 CONSISTENT | ng/mL | LAB | | | | WITH NORMAL | | | | | | POPULATION0.11 to 0.60 | | | | | | CONSISTENT WITH | | | | | | INCREASED RISK FOR | | | | | | ADVERSE OUTCOMES> 0.60 | | | | | | CONSISTENT | | | | | | WITH WHO CRITERIA FOR | | | | | | ACUTE UT Testing | | | | | | performed at [facility];[address] | | | | [address];[place], [place] | | | | | | [address] | | | | + + + + + + + + | Specimen | + + | Blood specimen | | (specimen) | + + + +---------+ + + | Performing | Address | City/State/Zipcode | Phone Number | | Organization | | | | + +---------+ + + | EXTERNAL LAB | | | | + +---------+ + + PTT (09/25/2014 4:01 AM PDT) + + + + + + | Component | Value | Ref Range | Performed | Pathologist | | | | | At | Signature | + + + + + + | aPTT, | 66 (H)Comment: Testing | 23 - 32 seconds | EXTERNAL | | | Patient | performed at [facility];[address] | | LAB | | | | [address];[place], [place] | | | | | | [address] | | | | + + + + + + + + | Specimen | + + | Blood specimen | | (specimen) | + + + +---------+ + + | Performing | Address | City/State/Zipcode | Phone Number | | Organization | | | | + +---------+ + + | EXTERNAL LAB | | | | + +---------+ + + Protime INR (09/25/2014 4:01 AM PDT) + + + + + + | Component | Value | Ref Range | Performed | Pathologist | | | | | At | Signature | + + + + + + | INR | 1.1Comment: REFERENCE | | EXTERNAL | | | | RANGE:0.9 - 1.2 | | LAB | | | | NON-ANTICOAGULATED2.0 | | | | | | - 3.0 ALL OTHER | | | | | | THERAPEUTIC | | | | | | INDICATIONS2.5 - 3.5 | | | | | | MECHANICAL HEART VALVES, | | | | | | RECURRENT OR SYSTEMIC | | | | | | EMBOLISMTesting | | | | | | performed at [facility];[address] | | | | | | [address];[place], [place] | | | | | | [address] | | | | + + + + + + + + | Specimen | + + | | + + + +---------+ + + | Performing | Address | City/State/Zipcode | Phone Number | | Organization | | | | + +---------+ + + | EXTERNAL LAB | | | | + +---------+ + + External Lab: CBC (09/25/2014 4:00 AM PDT) + + + + + + | Component | Value | Ref Range | Performed | Pathologist | | | | | At | Signature | + + + + + + | WBC | 7.72Comment: Testing | 3.80 - 11.00 | EXTERNAL | | | | performed at [facility], [address] | K/uL | LAB | | | | [address], | | | | | | [place] [address] | | | | + + + + + + | Red Blood | 4.80Comment: Testing | 3.70 - 5.10 | EXTERNAL | | | Cells | performed at [facility], [address] | M/uL | LAB | | | Counted | [address], | | | | | | [place] [address] | | | | + + + + + + | Hemoglobin | 14.0Comment: Testing | 11.3 - 15.5 | EXTERNAL | | | | performed at [facility], [address] | g/dL | LAB | | | | [address], | | | | | | [place] [address] | | | | + + + + + + | Hematocrit, | 43.0Comment: Testing | 34.0 - 46.0 % | EXTERNAL | | | POC | performed at [facility], [address] | | LAB | | | | [address], | | | | | | [place] [address] | | | | + + + + + + | MCV | 89.5Comment: Testing | 80.0 - 100.0 fl | EXTERNAL | | | | performed at [facility], [address] | | LAB | | | | [address], | | | | | | [place] [address] | | | | + + + + + + | MCH | 29.1Comment: Testing | 27.0 - 34.0 pg | EXTERNAL | | | | performed at [facility], [address] | | LAB | | | | [address], | | | | | | [place] [address] | | | | + + + + + + | MCHC | 32.5Comment: Testing | 32.0 - 35.5 | EXTERNAL | | | | performed at [facility], [address] | g/dL | LAB | | | | [address], | | | | | | [place] [address] | | | | + + + + + + | RDW-CV | 44.6Comment: Testing | 37 - 53 fl | EXTERNAL | | | | performed at [facility], [address] | | LAB | | | | [address], | | | | | | [place] [address] | | | | + + + + + + | Platelet | 238Comment: Testing | 150 - 400 K/uL | EXTERNAL | | | Count | performed at [facility], [address] | | LAB | | | Plasma | [address], | | | | | | [place] [address] | | | | + + + + + + | MPV | 8.2Comment: Testing | fl | EXTERNAL | | | | performed at [facility], [address] | | LAB | | | | [address], | | | | | | [place] [address] | | | | + + + + + + | Differentia | AUTOMATEDComment: | | EXTERNAL | | | l Type | Testing performed at | | LAB | | | | [facility], [address] | | | | | | [place] | | | | | | [address] | | | | + + + + + + | % Segmented | 66.49Comment: Testing | % | EXTERNAL | | | | performed at [facility], [address] | | LAB | | | Neutrophils | [address], | | | | | | [place] [address] | | | | + + + + + + | % | 22.73Comment: Testing | % | EXTERNAL | | | Lymphocytes | performed at [facility], [address] | | LAB | | | | [address], | | | | | | [place] [address] | | | | + + + + + + | % Monocytes | 5.74Comment: Testing | % | EXTERNAL | | | | performed at [facility], [address] | | LAB | | | | [address], | | | | | | [place] [address] | | | | + + + + + + | % | 4.08Comment: Testing | % | EXTERNAL | | | Eosinophils | performed at [facility], [address] | | LAB | | | | [address], | | | | | | [place] [address] | | | | + + + + + + | % Basophils | 0.96Comment: Testing | % | EXTERNAL | | | | performed at [facility], [address] | | LAB | | | | [address], | | | | | | [place] [address] | | | | + + + + + + | Absolute | 5.13Comment: Testing | 1.90 - 7.40 | EXTERNAL | | | Segmented | performed at [facility], [address] | K/uL | LAB | | | Neutrophils | [address], | | | | | | [place] [address] | | | | + + + + + + | Absolute | 1.76Comment: Testing | 1.00 - 3.90 | EXTERNAL | | | Lymphocytes | performed at [facility], [address] | K/uL | LAB | | | | [address], | | | | | | [place] [address] | | | | + + + + + + | Absolute | 0.44Comment: Testing | 0.00 - 0.80 | EXTERNAL | | | Monocytes | performed at [facility], [address] | K/uL | LAB | | | | [address], | | | | | | [place] [address] | | | | + + + + + + | Absolute | 0.32Comment: Testing | 0.00 - 0.50 | EXTERNAL | | | Eosinophils | performed at [facility], [address] | K/uL | LAB | | | | [address], | | | | | | [place] [address] | | | | + + + + + + | Absolute | 0.07Comment: Testing | 0.00 - 0.10 | EXTERNAL | | | Basophils | performed at [facility], [address] | K/uL | LAB | | | | [address], | | | | | | [place] [address] | | | | + + + + + + + + | Specimen | + + | Blood specimen | | (specimen) | + + + +---------+ + + | Performing | Address | City/State/Zipcode | Phone Number | | Organization | | | | + +---------+ + + | EXTERNAL LAB | | | | + +---------+ + + TSH (09/25/2014 4:00 AM PDT) + + + + + + | Component | Value | Ref Range | Performed | Pathologist | | | | | At | Signature | + + + + + + | TSH | 7.28 (H)Comment: Testing | 0.45 - 5.10 | EXTERNAL | | | | performed at [facility], [address] | LAB | | | | [address], | | | | | | [place] [address] | | | | + + + + + + + + | Specimen | + + | Blood specimen | | (specimen) | + + + +---------+ + + | Performing | Address | City/State/Zipcode | Phone Number | | Organization | | | | + +---------+ + + | EXTERNAL LAB | | | | + +---------+ + + T4, Free (09/25/2014 4:00 AM PDT) + + + + + + | Component | Value | Ref Range | Performed | Pathologist | | | | | At | Signature | + + + + + + | FREE T4 | 1.2Comment: Testing | 0.7 - 1.5 ng/dL | EXTERNAL | | | (REF) | performed at [facility], [address] | | LAB | | | | [address], | | | | | | [place] [id number] | | | | + + + + + + + + | Specimen | + + | Blood specimen | | (specimen) | + + + +---------+ + + | Performing | Address | City/State/Zipcode | Phone Number | | Organization | | | | + +---------+ + + | EXTERNAL LAB | | | | + +---------+ + + Phosphorus (09/25/2014 4:00 AM PDT) + + + + + + | Component | Value | Ref Range | Performed | Pathologist | | | | | At | Signature | + + + + + + | PHOSPHORUS | 4.2Comment: Testing | 2.3 - 4.8 mg/dL | EXTERNAL | | | | performed at [facility], [address] | LAB | | | | [address], | | | | | | [place] [address] | | | | + + + + + + + + | Specimen | + + | Blood specimen | | (specimen) | + + + +---------+ + + | Performing | Address | City/State/Zipcode | Phone Number | | Organization | | | | + +---------+ + + | EXTERNAL LAB | | | | + +---------+ + + B Type Natriuretic Peptide (09/25/2014 4:00 AM PDT) + + + + + + | Component | Value | Ref Range | Performed | Pathologist | | | | | At | Signature | + + + + + + | BNP | 439 (H)Comment: Testing | 0 - 100 pg/mL | EXTERNAL | | | | performed at [facility] [place];[address] | | LAB | | | | [address];[place] | | | | | | [id number] | | | | + + + + + + + + | Specimen | + + | Blood specimen | | (specimen) | + + + +---------+ + + | Performing | Address | City/State/Zipcode | Phone Number | | Organization | | | | + +---------+ + + | EXTERNAL LAB | | | | + +---------+ + + Magnesium (09/25/2014 4:00 AM PDT) + + + + + + | Component | Value | Ref Range | Performed | Pathologist | | | | | At | Signature | + + + + + + | Magnesium | 2.1Comment: Testing | 1.7 - 2.4 mg/dL | EXTERNAL | | | | performed at [facility], [address] | | LAB | | | | [address], | | | | | | [place] [address] | | | | + + + + + + + + | Specimen | + + | Blood specimen | | (specimen) | + + + +---------+ + + | Performing | Address | City/State/Zipcode | Phone Number | | Organization | | | | + +---------+ + + | EXTERNAL LAB | | | | + +---------+ + + Hemoglobin A1C (09/25/2014 4:00 AM PDT) + + + + + + | Component | Value | Ref Range | Performed | Pathologist | | | | | At | Signature | + + + + + + | Hemoglobin | 6.3 (H)Comment: The | 4.0 - 6.0 % | EXTERNAL | | | A1c | [place] [employer] | | LAB | | | | Association considers a | | | | | | hemoglobin A1c result of | | | | | | <7.0% to be the goal of | | | | | | diabetic therapy. | | | | | | When results are | | | | | | consistently >8.0%, the | | | | | | ADA suggests | | | | | | reevaluation of the | | | | | | treatment regimen. The | | | | | | testing method used is | | | | | | certified traceable to | | | | | | the Diabetes Control and | | | | | | Complications Trial | | | | | | reference method.Testing | | | | | | performed at [facility], [facility] | | | | | | [address], | | | | | | [place] [address] | | | | + + + + + + | Glycohemogl | 134Comment: The ADA | mg/dL | EXTERNAL | | | obin | considers an eAG result | | LAB | | | (GHb),Total | of LT 154 mg/dL to be | | | | | | the goal of diabetic | | | | | | therapy. Estimated | | | | | | Average Glucose | | | | | | calculated from | | | | | | hemoglobin A1c by use of | | | | | | the ADA recommended | | | | | | formula.Testing | | | | | | performed at [facility], [address] | | | | | | [address], | | | | | | [place] [address] | | | | + + + + + + + + | Specimen | + + | Blood specimen | | (specimen) | + + + +---------+ + + | Performing | Address | City/State/Zipcode | Phone Number | | Organization | | | | + +---------+ + + | EXTERNAL LAB | | | | + +---------+ + + Lipid Panel (09/25/2014 4:00 AM PDT) + + + + + + | Component | Value | Ref Range | Performed | Pathologist | | | | | At | Signature | + + + + + + | Cholesterol | 121Comment: Testing | mg/dL | EXTERNAL | | | | performed at [facility], [address] | | LAB | | | | [address], | | | | | | [place] [address] | | | | + + + + + + | Triglycerid | 122Comment: Testing | mg/dL | EXTERNAL | | | es | performed at [facility], [address] | | LAB | | | | [address], | | | | | | [place] [address] | | | | + + + + + + | HDL | 37 (L)Comment: Testing | mg/dL | EXTERNAL | | | | performed at [facility], [address] | | LAB | | | | [address], | | | | | | [place] [address] | | | | + + + + + + | LDL, | 60Comment: Testing | mg/dL | EXTERNAL | | | Calculated | performed at [facility], [address] | | LAB | | | | [address], | | | | | | [place] [address] | | | | + + + + + + + + | Specimen | + + | Blood specimen | | (specimen) | + + + +---------+ + + | Performing | Address | City/State/Zipcode | Phone Number | | Organization | | | | + +---------+ + + | EXTERNAL LAB | | | | + +---------+ + + Basic Metabolic Panel (09/25/2014 4:00 AM PDT) + + + + + + | Component | Value | Ref Range | Performed | Pathologist | | | | | At | Signature | + + + + + + | Na | 137Comment: Testing | 135 - 143 | EXTERNAL | | | | performed at [facility], [address] | mmol/L | LAB | | | | [address], | | | | | | [place] [address] | | | | + + + + + + | K | 3.6Comment: Testing | 3.5 - 4.9 | EXTERNAL | | | | performed at [facility], [address] | mmol/L | LAB | | | | [address], | | | | | | [place] [address] | | | | + + + + + + | Cl | 105Comment: Testing | 99 - 109 mmol/L | EXTERNAL | | | | performed at [facility], [address] | | LAB | | | | [address], | | | | | | [place] [address] | | | | + + + + + + | CO2 | 24Comment: Testing | 23 - 32 mmol/L | EXTERNAL | | | | performed at [facility], [address] | | LAB | | | | [address], | | | | | | [place] [address] | | | | + + + + + + | Anion Gap | 12Comment: Testing | 5 - 20 mmol/L | EXTERNAL | | | | performed at [facility], [address] | | LAB | | | [address], | | | | | | [place] [address] | | | | + + + + + + | Glucose, | 154 (H)Comment: Testing | 65 - 99 mg/dL | EXTERNAL | | | Fasting | performed at [facility], [address] | | LAB | | | | [address], | | | | | | [place] [address] | | | | + + + + + + | BUN | 15Comment: Testing | 8 - 25 mg/dL | EXTERNAL | | | | performed at [facility], [address] | | LAB | | | | [address], | | | | | | [place] [address] | | | | + + + + + + | Creatinine | 0.90Comment: Testing | 0.50 - 1.00 | EXTERNAL | | | | performed at [facility], [address] | mg/dL | LAB | | | | [address], | | | | | | [place] [address] | | | | + + + + + + | BUN/Creatin | 17Comment: Testing | | EXTERNAL | | | ine Ratio | performed at [facility], [address] | | LAB | | | | [address], | | | | | | [place] [address] | | | | + + + + + + | Calcium | 9.3Comment: Testing | 8.5 - 10.5 | EXTERNAL | | | | performed at [facility], [address] | mg/dL | LAB | | | | [address] [facility], | | | | | | [place] [address] | | | | + + + + + + | Estimated | >60Comment: GFR <60: | mL/min/1.73m2 | EXTERNAL | | | GFR | CHRONIC KIDNEY DISEASE, | | LAB | | | | IF FOUND OVER A 3 MONTH | | | | | | PERIOD.GFR <15: KIDNEY | | | | | | FAILURE.FOR | | | | | | AMERICANS, MULTIPLY THE | | | | | | CALCULATED GFR BY | | | | | | 1.210.Testing performed | | | | | | at [facility], [address] | | | | | | [facility], | | | | | | [place] [address] | | | | + + + + + + + + | Specimen | + + | Blood specimen | | (specimen) | + + + +---------+ + + | Performing | Address | City/State/Zipcode | Phone Number | | Organization | | | | + +---------+ + + | EXTERNAL LAB | | | | + +---------+ + + PTT (09/25/2014 12:53 AM PDT) + + + + + + | Component | Value | Ref Range | Performed | Pathologist | | | | | At | Signature | + + + + + + | aPTT, | 48 (H)Comment: Testing | 23 - 32 seconds | EXTERNAL | | | Patient | performed at [facility];[address] | | LAB | | | | [address];[place] | | | | | | [address] | | | | + + + + + + + + | Specimen | + + | Blood specimen | | (specimen) | + + + +---------+ + + | Performing | Address | City/State/Zipcode | Phone Number | | Organization | | | | + +---------+ + + | EXTERNAL LAB | | | | + +---------+ + + Troponin I (09/25/2014 12:21 AM PDT) + + + + + + | Component | Value | Ref Range | Performed | Pathologist | | | | | At | Signature | + + + + + + | Troponin I, | 0.159 (H)Comment: 0.00 | 0.00 - 0.10 | EXTERNAL | | | Qual | to 0.10 CONSISTENT | ng/mL | LAB | | | | WITH NORMAL | | | | | | POPULATION0.11 to 0.60 | | | | | | CONSISTENT WITH | | | | | | INCREASED RISK FOR | | | | | | ADVERSE OUTCOMES> 0.60 | | | | | | CONSISTENT | | | | | | WITH WHO CRITERIA FOR | | | | | | ACUTE UT Testing | | | | | | performed at [facility];[address] | | | | | | [facility];[place], [place] | | | | | | [address] | | | | + + + + + + + + | Specimen | + + | Blood specimen | | (specimen) | + + + +---------+ + + | Performing | Address | City/State/Zipcode | Phone Number | | Organization | | | | + +---------+ + + | EXTERNAL LAB | | | | + +---------+ + + Culture, Urine (09/24/2014 10:54 PM PDT) + + | Specimen | + + | | + + + + + | Narrative | Performed At | + + + | Specimen Description URINE, COLLECTION NOT | EXTERNAL LAB | | GIVEN CULTURE NO GROWTH | | | Testing performed | | | at [facility], [address] [place] [address] | | + + + + +---------+ + + | Performing | Address | City/State/Zipcode | Phone Number | | Organization | | | | + +---------+ + + | EXTERNAL LAB | | | | + +---------+ + + Urinalysis with Microscopic with Culture if Indicated (09/24/2014 10:54 PM PDT) + + + + + + | Component | Value | Ref Range | Performed | Pathologist | | | | | At | Signature | + + + + + + | Color | YELLOWComment: Testing | | EXTERNAL | | | | performed at [facility], [address] | | LAB | | | | [address], | | | | | | [place] [address] | | | | + + + + + + | Clarity | CLEARComment: Testing | | EXTERNAL | | | | performed at [facility], [address] | | LAB | | | | [address], | | | | | | [place] [address] | | | | + + + + + + | Specific | 1.015Comment: Testing | 1.002 - 1.030 | EXTERNAL | | | [place], | performed at [facility], [address] | | LAB | | | Urine | [address], | | | | | | [place] [address] | | | | + + + + + + | Leukocyte | SMALL (A)Comment: | | EXTERNAL | | | Esterase, | Testing performed at | | LAB | | | Urine | [facility], [address] | | | | | | [place] | | | | | | [address] | | | | + + + + + + | Nitrite, | NEGATIVEComment: Testing | | EXTERNAL | | | Urine | performed at [facility], [address] | | LAB | | | | [address], | | | | | | [place] [address] | | | | + + + + + + | Urobilinoge | 0.2Comment: Testing | mg/dL | EXTERNAL | | | n, Urine | performed at [facility], [address] | | LAB | | | | [address], | | | | | | [place] [address] | | | | + + + + + + | Protein, | NEGATIVEComment: Testing | mg/dL | EXTERNAL | | | Urine | performed at [facility], [address] | | LAB | | | [address], | | | | | | [place] [address] | | | | + + + + + + | pH, Urine | 6.5Comment: Testing | 5.0 - 8.0 | EXTERNAL | | | | performed at [facility], [address] | | LAB | | | [address], | | | | | | [place] [address] | | | | + + + + + + | Blood, | NEGATIVEComment: Testing | | EXTERNAL | | | Urine | performed at [facility], [address] | | LAB | | | | [address], | | | | | | [place] [address] | | | | + + + + + + | Ketones | 15 (A)Comment: Testing | mg/dL | EXTERNAL | | | | performed at [facility], [address] | | LAB | | | | [address], | | | | | | [place] [address] | | | | + + + + + + | Bilirubin, | NEGATIVEComment: Testing | | EXTERNAL | | | Urine | performed at [facility], [address] | | LAB | | | | [address], | | | | | | [place] [address] | | | | + + + + + + | Glucose, | NEGATIVEComment: Testing | mg/dL | EXTERNAL | | | Urine | performed at [facility], [address] | | LAB | | | | [address], | | | | | | [place] [address] | | | | + + + + + + | WBC, UA | 11-15Comment: Testing | 0 - 5 /hpf | EXTERNAL | | | | performed at [facility], [address] | | LAB | | | | [address], | | | | | | [place] [address] | | | | + + + + + + | RBC, UA | 0-2Comment: Testing | 0 - 5 /hpf | EXTERNAL | | | | performed at [facility], [address] | | LAB | | | | [address], | | | | | | [place] [address] | | | | + + + + + + | Epithelial | 26-50Comment: Testing | /lpf | EXTERNAL | | | Cells | performed at [facility], [address] | | LAB | | | | [address], | | | | | | [place] [address] | | | | + + + + + + | Bacteria, | 2+ (A)Comment: CULTURE | | EXTERNAL | | | UA | TO FOLLOWTesting | | LAB | | | | performed at [facility], [address] | | | | | | [address], | | | | | | [place] [address] | | | | + + + + + + | HYALINE | 0-2Comment: Testing | | EXTERNAL | | | CASTS UA | performed at [facility], [address] | | LAB | | | | [address], | | | | | | [place] [address] | | | | + + + + + + + + | Specimen | + + | Urine specimen | | (specimen) | + + + +---------+ + + | Performing | Address | City/State/Zipcode | Phone Number | | Organization | | | | + +---------+ + + | EXTERNAL LAB | | | | + +---------+ + + HISTORICAL LAB PANEL RESULT (09/24/2014 4:15 PM PDT) + + + + + -+ | Component | Value | Ref Range | Performed | Pathologist | | | | | At | Signature | + + + + + -+ | WBC | 6.79Comment: Testing | 3.80 - 11.00 | EXTERNAL | | | | performed at [facility];[address] | K/uL | LAB | | | | [address];[place] | | | | | | [address] | | | | + + + + + -+ | Red Blood | 4.88Comment: Testing | 3.70 - 5.10 | EXTERNAL | | | Cells | performed at [facility];[address] | M/uL | LAB | | | Counted | [address];[place] | | | | | | [address] | | | | + + + + + -+ | Hemoglobin | 14.2Comment: Testing | 11.3 - 15.5 | EXTERNAL | | | | performed at [facility];[address] | g/dL | LAB | | | | [address];[place] | | | | | | [address] | | | | + + + + + -+ | Hematocrit, | 43.7Comment: Testing | 34.0 - 46.0 % | EXTERNAL | | | POC | performed at [facility];[address] | | LAB | | | | [address];[place] | | | | | | [address] | | | | + + + + + -+ | MCV | 89.4Comment: Testing | 80.0 - 100.0 fl | EXTERNAL | | | | performed at [facility];[address] | | LAB | | | | [address];[place] | | | | | | [address] | | | | + + + + + -+ | MCH | 29.2Comment: Testing | 27.0 - 34.0 pg | EXTERNAL | | | | performed at [facility];[address] | | LAB | | | | [address];[place] | | | | | | [address] | | | | + + + + + -+ | MCHC | 32.6Comment: Testing | 32.0 - 35.5 | EXTERNAL | | | | performed at [facility];[address] | g/dL | LAB | | | | [address];[place] | | | | | | [address] | | | | + + + + + -+ | RDW-CV | 45.5Comment: Testing | 37 - 53 fl | EXTERNAL | | | | performed at [facility];[address] | | LAB | | | | [address];[place] | | | | | | [address] | | | | + + + + + -+ | Platelet | 247Comment: Testing | 150 - 400 K/uL | EXTERNAL | | | Count | performed at [facility];[address] | | LAB | | | Plasma | [address];[place] | | | | | | [address] | | | | + + + + + -+ | MPV | 7.5Comment: Testing | fl | EXTERNAL | | | | performed at [facility];[address] | | LAB | | | | [address];[place] | | | | | | [address] | | | | + + + + + -+ | Differentia | AUTOMATEDComment: | | EXTERNAL | | | l Type | Testing performed at | | LAB | | | | [facility];[address];[place] [address] | | | | + + + + + -+ | % Segmented | 60.73Comment: Testing | % | EXTERNAL | | | | performed at [facility];[address] | | LAB | | | Neutrophils | [address];[place] | | | | | | [address] | | | | + + + + + -+ | % | 28.34Comment: Testing | % | EXTERNAL | | | Lymphocytes | performed at [facility];[address] | | LAB | | | | [address];[place] | | | | | | [address] | | | | + + + + + -+ | % Monocytes | 6.65Comment: Testing | % | EXTERNAL | | | | performed at [facility];[address] | | LAB | | | | [address];[place] | | | | | | [address] | | | | + + + + + -+ | % | 3.10Comment: Testing | % | EXTERNAL | | | Eosinophils | performed at [facility];[address] | | LAB | | | | [address];[place] | | | | | | [address] | | | | + + + + + -+ | % Basophils | 1.18Comment: Testing | % | EXTERNAL | | | | performed at [facility];[address] | | LAB | | | | [address];[place] | | | | | | [address] | | | | + + + + + -+ | Absolute | 4.12Comment: Testing | 1.90 - 7.40 | EXTERNAL | | | Segmented | performed at [facility];[address] | K/uL | LAB | | | Neutrophils | [address];[place] | | | | | | [address] | | | | + + + + + -+ | Absolute | 1.93Comment: Testing | 1.00 - 3.90 | EXTERNAL | | | Lymphocytes | performed at [facility];[address] | K/uL | LAB | | | | [address];[place] | | | | | | [address] | | | | + + + + + -+ | Absolute | 0.45Comment: Testing | 0.00 - 0.80 | EXTERNAL | | | Monocytes | performed at [facility];[address] | K/uL | LAB | | | | [address];[place] | | | | | | [address] | | | | + + + + + -+ | Absolute | 0.21Comment: Testing | 0.00 - 0.50 | EXTERNAL | | | Eosinophils | performed at [facility];[address] | K/uL | LAB | | | | [address];[place] | | | | | | [address] | | | | + + + + + -+ | Absolute | 0.08Comment: Testing | 0.00 - 0.10 | EXTERNAL | | | Basophils | performed at [facility];[address] | K/uL | LAB | | | | [address];[place] | | | | | | [address] | | | | + + + + + -+ | Na | 143Comment: Testing | 135 - 143 | EXTERNAL | | | | performed at [facility];[address] | mmol/L | LAB | | | | [address];[place] | | | | | | [address] | | | | + + + + + -+ | K | 3.6Comment: Testing | 3.5 - 4.9 | EXTERNAL | | | | performed at [facility];[address] | mmol/L | LAB | | | | [address];[place] | | | | | | [address] | | | | + + + + + -+ | Cl | 109Comment: Testing | 99 - 109 mmol/L | EXTERNAL | | | | performed at [facility];[address] | | LAB | | | | [address];[place] | | | | | | [address] | | | | + + + + + -+ | CO2 | 25Comment: Testing | 23 - 32 mmol/L | EXTERNAL | | | | performed at [facility];[address] | | LAB | | | | [address];[place] | | | | | | [address] | | | | + + + + + -+ | Anion Gap | 13Comment: Testing | 5 - 20 mmol/L | EXTERNAL | | | | performed at [facility];[address] | | LAB | | | | [address];[place] | | | | | | [address] | | | | + + + + + -+ | Glucose, | 114 (H)Comment: Testing | 65 - 99 mg/dL | EXTERNAL | | | Fasting | performed at [facility];[address] | | LAB | | | | [address];[place] | | | | | | [address] | | | | + + + + + -+ | BUN | 9Comment: Testing | 8 - 25 mg/dL | EXTERNAL | | | | performed at [facility];[address] | | LAB | | | | [address];[place] | | | | | | [address] | | | | + + + + + -+ | Creatinine | 0.79Comment: Testing | 0.50 - 1.00 | EXTERNAL | | | | performed at [facility];[address] | mg/dL | LAB | | | | [address];[place] | | | | | | [address] | | | | + + + + + -+ | BUN/Creatin | 11Comment: Testing | | EXTERNAL | | | ine Ratio | performed at [facility];[address] | | LAB | | | | [address];[place] | | | | | | [address] | | | | + + + + + -+ | Calcium | 8.8Comment: Testing | 8.5 - 10.5 | EXTERNAL | | | | performed at [facility];[address] | mg/dL | LAB | | | | [address];[place] | | | | | | [address] | | | | + + + + + -+ | Protein, | 7.2Comment: Testing | 6.3 - 8.2 g/dL | EXTERNAL | | | Total | performed at [facility];[address] | | LAB | | | | [address];[place] | | | | | | [address] | | | | + + + + + -+ | Albumin | 3.7Comment: Testing | 3.3 - 4.8 g/dL | EXTERNAL | | | | performed at [facility];[address] | | LAB | | | | [address];[place] | | | | | | [address] | | | | + + + + + -+ | Globulin | 3.5Comment: Testing | 1.3 - 4.9 g/dL | EXTERNAL | | | | performed at [facility];[address] | | LAB | | | | [address];[place] | | | | | | [address] | | | | + + + + + -+ | A/G Ratio | 1.1Comment: Testing | 1.0 - 2.4 | EXTERNAL | | | | performed at [facility];[address] | | LAB | | | | [address];[place] | | | | | | [address] | | | | + + + + + -+ | Bilirubin | 0.8Comment: Testing | 0.1 - 1.5 mg/dL | EXTERNAL | | | Total | performed at [facility];[address] | | LAB | | | | [address];[place] | | | | | | [address] | | | | + + + + + -+ | ALP, | 104Comment: Testing | 35 - 115 U/L | EXTERNAL | | | External | performed at [facility];[address] | | LAB | | | | [address];[place] | | | | | | [address] | | | | + + + + + -+ | AST | 26Comment: Testing | 10 - 45 U/L | EXTERNAL | | | | performed at [facility];[address] | | LAB | | | | [address];[place] | | | | | | [address] | | | | + + + + + -+ | ALT | 31Comment: Testing | 10 - 65 U/L | EXTERNAL | | | | performed at [facility];[address] | | LAB | | | | [address];[place] | | | | | | [address] | | | | + + + + + -+ | Estimated | >60Comment: GFR <60: | mL/min/1.73m2 | EXTERNAL | | | GFR | CHRONIC KIDNEY DISEASE, | | LAB | | | | IF FOUND OVER A 3 MONTH | | | | | | PERIOD.GFR <15: KIDNEY | | | | | | FAILURE.FOR | | | | | | AMERICANS, MULTIPLY THE | | | | | | CALCULATED GFR BY | | | | | | 1.210.Testing performed | | | | | | at [facility];[address] | | | | | [address];[place] [address] | | | | + + + + + -+ | CK, Total | 42Comment: Testing | 30 - 240 U/L | EXTERNAL | | | | performed at [facility];[address] | | LAB | | | | [address];[place] | | | | | | [address] | | | | + + + + + -+ | INR | 1.0Comment: REFERENCE | | EXTERNAL | | | | RANGE:0.9 - 1.2 | | LAB | | | | NON-ANTICOAGULATED2.0 | | | | | | - 3.0 ALL OTHER | | | | | | THERAPEUTIC | | | | | | INDICATIONS2.5 - 3.5 | | | | | | MECHANICAL HEART VALVES, | | | | | | RECURRENT OR SYSTEMIC | | | | | | EMBOLISMTesting | | | | | | performed at [facility];[address] | | | | | | [address];[place] | | | | | | [address] | | | | + + + + + -+ | aPTT, | 30Comment: Testing | 23 - 32 seconds | EXTERNAL | | | Patient | performed at [facility];[address] | | LAB | | | | [address];[place] | | | | | | [address] | | | | + + + + + -+ | CK-MB | 1.1Comment: Testing | 0.5 - 3.6 ng/mL | EXTERNAL | | | | performed at [facility];[address] | | LAB | | | | [address];[place] | | | | | | [address] | | | | + + + + + -+ | CK-MB Index | 2.6Comment: CK INDEX | | EXTERNAL | | | | INTERPRETATION: | | LAB | | | | MMB ng/mL | | | | | | | | | | | |CK INDEX INTERPRETATION: | | | | | | MMB ng/mL | | | | | | | | | | + + + + + -+ + + | Specimen | + + | | + + + +---------+ + + | Performing | Address | City/State/Zipcode | Phone Number | | Organization | | | | + +---------+ + + | EXTERNAL LAB | | | | + +---------+ + + B Type Natriuretic Peptide (09/24/2014 4:15 PM PDT) + + + + + + | Component | Value | Ref Range | Performed | Pathologist | | | | | At | Signature | + + + + + + | BNP | 647 (H)Comment: Testing | 0 - 100 pg/mL | EXTERNAL | | | | performed at [facility] [place];88 | | LAB | | | | Gina Ledesma;[place] | | | | | | [id number] | | | | + + + + + + + + | Specimen | + + | Blood specimen | | (specimen) | + + + +---------+ + + | Performing | Address | City/State/Zipcode | Phone Number | | Organization | | | | + +---------+ + + | EXTERNAL LAB | | | | + +---------+ + + XR Chest 2 Vws (09/24/2014 4:09 PM PDT) + + | Specimen | + + | | + + + + + | Narrative | Performed At | + + + | This is a non-reportable procedure without a radiologist report and | | | is used for image storage only | | + + + + + | Procedure Note | + + | Pineda Gomez - 01/30/2019 8:18 AM PDT This is a non-reportable procedure | | without a radiologist report and isused for image storage only | + + ECG 12 lead (09/24/2014 4:06 PM PDT) + + + + + + | Component | Value | Ref Range | Performed | Pathologist | | | | | At | Signature | + + + + + + | DIAGNOSIS: | Sinus tachycardia with | | EXTERNAL | | | | Premature atrial | | LAB | | | | complexesLeft axis | | | | | | deviationIncomplete left | | | | | | bundle branch blockT | | | | | | wave abnormality, | | | | | | consider lateral | | | | | | ischemiaAbnormal ECGNo | | | | | | previous ECGs | | | | | | availableThis ECG | | | | | | contains Unconfirmed | | | | | | Interpretation | | | | | | Statements. See ED | | | | | | Record for Physician | | | | | | Interpretation. | | | | | | Confirmed by MUSE READ | | | | | | ONLY, -COMPUTER ([id number]), | | | | | | marketing editor Nadia Smith | | | | | | (18) on 09/24/2014 | | | | | | 5:29:47 PM | | | | + + + + + + + + | Specimen | + + | | + + + + + | Narrative | Performed At | + + + | Historically converted procedure from [facility] Epic environment | EXTERNAL LAB | + + + + +---------+ + + | Performing | Address | City/State/Zipcode | Phone Number | | Organization | | | | + +---------+ + + | EXTERNAL LAB | | | | + +---------+ + + documented in this encounter Visit Diagnoses + + | Diagnosis | + + | New onset atrial fibrillation (HCC) Atrial fibrillation | + + | CHF (congestive heart failure) ([facility]) Congestive heart failure, unspecified | + + | NSTEMI (non-ST elevated myocardial infarction) ([facility]) Acute myocardial infarction, | | subendocardial infarction, episode of care unspecified | + + documented in this encounter
--- OUTSIDE RECORDS SUMMARY | ~2019-11-15 | XMS | Encounter Summary ---
Demographics + + + | Address | [address] | | | [place] [address] | + + + | Home Phone | | + + + | Preferred Language | Unknown | + + + | Marital Status | | + + + | Samaritan Affiliation | Unknown | + + + | Race | Unknown | + + + | Ethnic Group | Unknown | + + + Author + + + | Author | [facility] | | | and [place] | + + + | Organization | [facility] | | | and [place] [...] Team Providers + +------+ + | Care Raw Silk Grader Name | Role | Phone | + +------+ + | Eva An MD | PCP | | + +------+ + Encounter Details +--------+ + + + + | Date | Type | Department | Care Team | Description | +--------+ + + + + | 10/18/ | Orders Only | [facility] | Conversion | | | 2015 | | CARDIOLOGY [place] | Transaction, | | | | | [address] | Provider Unknown | | | | | [place] | [phone] | | | | | [phone] | | | | | | [phone] | | | +--------+ + + + [...]
--- OUTSIDE RECORDS SUMMARY | ~2019-11-15 | XMS | Clinical Summary ---
Demographics + + + | Address | [address] [place] [address] road | | | [place] [address] | + + + | Home Phone | | + + + | Preferred Language | Unknown | + + + | Marital Status | Single | + + + | Moravian Affiliation | Unknown | + + + | Race | Unknown | + + + | Ethnic Group | Unknown | + + + Author + + + | Author | [facility] (Historical as of | | | 01-31-19) | + + + | Organization | [facility] (Historical as of | | | 01-31-19) [...] Team Providers + +------+ + | Care Diesel [employer]ic [employer] Name | Role | Phone | + [...] +------+-------+ + | MEDICARE | MEDICA | [id number] | | | [address] | | | RE | | | | [place] [address] | | | IP-OP | | | | | + +--------+ +------+-------+ + | [place] | YELLOW | [id number] | | | | | PLANS | [...] | Self | [birth year] Home: | [id number] [place] [address] road | | | al/Fam | | 1936 | [phone] | [place] [address] | | | [place] | | | [phone] | | + +--------+ +--------+ + +
--- OUTSIDE RECORDS SUMMARY | ~2019-11-15 | XMS | Encounter Summary ---
Demographics + + + | Address | [address] | | | [place] [address] | + + + | Home Phone | | + + + | Preferred Language | Unknown | + + + | Marital Status | | + + + | Sikhism Affiliation | Unknown | + + + | Race | Unknown | + + + | Ethnic Group | Unknown | + + + Author + + + | Author | [facility] | | | and [place] | + + + | Organization | [facility] | | | and [place] [...] Team Providers + +------+ + | Care Child Welfare Manager Name | Role | Phone | + +------+ + | Eva An MD | PCP | | + +------+ + Encounter Details +--------+ + + + + | Date | Type | Department | Care Team | Description | +--------+ + + + + | 10/18/ | Orders Only | [facility] | Conversion | | | 2015 | | CARDIOLOGY [place] | Transaction, | | | | | [address] | Provider Unknown | | | | | [place] | [phone] | | | | | [phone] | | | | | | [phone] | | | +--------+ + + + [...]
--- OUTSIDE RECORDS SUMMARY | ~2019-11-15 | XMS | Encounter Summary ---
Demographics + + + | Address | [address] | | | [place] [address] | + + + | Home Phone | | + + + | Preferred Language | Unknown | + + + | Marital Status | | + + + | Synagogue Affiliation | Unknown | + + + | Race | Unknown | + + + | Ethnic Group | Unknown | + + + Author + + + | Author | [facility] | | | and [place] | + + + | Organization | [facility] | | | and [...] Team Providers + +------+ + | Care Director Decision Support Name | Role | Phone | + +------+ + PCP | Unavailable | + +------+ + Encounter Details +--------+ + + + + | Date | Type | Department | Care Team | Description | +--------+ + + + + | 02/04/ | Hospital | [facility] | Lena [facility] | | | 2011 | Encounter | [facility] | MD [address] | | | | | LAB[address]AT[address] | | | | | [address] [place] | [place] [address] | | | | | [address] | [phone] | | | | | [phone] | | | +--------+ + + + [...] + + + | Exam Performed Location: [facility] | [facility] | | TWO VIEWS CLINICAL INFORMATION: Pre-operative for vaginal laser | LAB | | procedure. COMPARISON: None. FINDINGS: The heart size and | | | pulmonary vasculature are within normal limits. No focal | | | consolidation. No pleural effusion or pneumothorax. Visualized | | | bones are unremarkable. IMPRESSION: Negative chest radiographs. | | | S: SQ ([id number]) Signed by: GARCIA HEART MD | | + + + + + | Procedure Note | + + | Pineda Gomez - 04/09/2013 7:17 AM PDT Exam Performed Location: [facility] | | at [facility] TWO VIEWSCLINICAL INFORMATION:Pre-operative for vaginal laser | | procedure.COMPARISON:None.FINDINGS:The heart size and pulmonary vasculature are within | | normal limits.No focal consolidation. No pleural effusion or pneumothorax.Visualized | | bones are unremarkable.IMPRESSION:Negative chest radiographs.S: SQ ([id number]) Signed by: | | GARCIA HEART MD | | | |COMPARISON: | |None. | | | |FINDINGS: | |The heart size and pulmonary vasculature are within normal limits. | |No focal consolidation. No pleural effusion or pneumothorax. | |Visualized bones are unremarkable. | | | |IMPRESSION: | |Negative chest radiographs. | | | | | |S: SQ ([id number]) Signed by: GARCIA HEART MD | + + + +---------+ + + | Performing | Address | City/State/Zipcode | Phone Number | | Organization | | | | + +---------+ + + | [facility] | | | [phone] | + +---------+ + + | [facility] LAB | | | [phone] | + +---------+ + + Basic Metabolic [...] + + | Glucose | 105 (H)Comment: [place] | 65 - 99 mg/dL | [facility] | | | | [employer] | [...] + + | [facility] | [address] | [place] [address] | | | [facility] | | | | | LABORATORY | | | | + + + + + | [facility] | | | | | [facility] | | | | | [...] + + | [facility] | [address] | [place] [address] | | | [facility] | | | | | LABORATORY | | | | + + + + + | [facility] | | | | | [facility] | | | | | LABORATORY | | | | + + + + + documented in this encounter Visit Diagnoses Not on filedocumented in this encounter"
--- OUTSIDE RECORDS SUMMARY | ~2019-11-15 | XMS | Encounter Summary ---
Demographics + + + | Address | [address] | | | [place] [address] | + + + | Home Phone | | + + + | Preferred Language | Unknown | + + + | Marital Status | | + + + | Latter-Day Affiliation | Unknown | + + + | Race | Unknown | + + + | Ethnic Group | Unknown | + + + Author + + + | Author | [facility] | | | and [place] | + + + | Organization | [facility] | | | and [place] [...] Team Providers + +------+ + | Care Curing Pickling Packer Name | Role | Phone | + +------+ + PCP | Unavailable | + +------+ + Encounter Details +--------+ + + + + | Date | Type | Department | Care Team | Description | +--------+ + + + + | 09/24/ | Hospital | [facility] | Sherrill Barnes MD | New onset atrial | | 2015 - | Encounter | [facility] | [address] | fibrillation (HCC); | | | | CARE FLOOR [address] | [place] [address] | CHF (congestive | | 10/01/ | | [address] | [phone] | heart failure) | | 2015 | | [place], [place] | | ([facility]); NSTEMI | | | | [address] | | (non-ST elevated | | | | [phone] | | myocardial | | | | | | infarction) ([facility]) | +--------+ + + + + Social [...] Summaries by Sherrill Barnes MD at 10/02/14 197 Author: Sherrill Barnes MD Service: Hospitalist Author Type: Physician Filed: 10/03/14 1625 Date of Service: 10/02/14 333 Status: Signed Lead Software Developer: Sherrill Barnes MD (Physician) [facility] Service: Hospitalist Discharge Summary Date of Admission: [...] Significant Diagnostic Studies: -ray Chest 1 View [[id number]] Resulted: 09/25/14 0748 Order Status: Completed Updated: [...] are Mon- Fri 7:30am-4:00pm, Call as needed, Pool Hand Willow Wheatley and Patient Navigator Lisset. Bryan Ceja MD [address] [place] [address] [place] [address] Schedule an appointment as soon as possible for a visit in 2 week(s) [place] [address] [place] [id number] Follow up on 10/06/2014 Please go to follow-up appointment at SaturdayOctober 06 at 2:00pm. Dr. Guillory is [facility] new primary care physician and will follow patients INR levels as well. Eva An MD [facility] [address] [place] [address] Medication List START taking these medications clopidogrel [...] are the prescriptions that you need to tack picker. You may get the following medications from [...] (none) Author Type: Registered Nurse Filed: 10/01/14 3183 Date of Service: 10/01/14 1230 Status: Signed Lead Software Developer: Marcy Sosa RN (Registered Nurse) Pt discharged [...] Case Management by MOLLY Medina at 10/01/14 2083 Author: MOLLY Medina Service: (none) Author Type: Tug Boat Engineer Filed: 10/01/14 6781 Date of Service: 10/01/14845 Status: Addendum Lead Software Developer: MOLLY Medina (Tug Boat Engineer) Related Notes: Original Note by MOLLY Medina (Tug Boat Engineer) filed at 10/01/14 0917 CM met w/ pt re: d/c planning. [...] 09/30/141845 Date of Service: 09/30/141839 Status: Signed Lead Software Developer: Sherrill Barnes MD (Physician) [facility] Service: Hospitalist Progress Note Hospital Day: LOS: [...] Case Management by MOLLY Shields at 09/30/14 8403 Author: MOLLY Shields Service: (none) Author Type: Tug Boat Engineer Filed: 09/30/14 6038 Date of Service: 09/30/141554 Status: Addendum Lead Software Developer: MOLLY Shields (Tug Boat Engineer) Related Notes: Original Note by MOLLY Shields (Tug Boat Engineer) filed at 09/30/14 5065 Cm met with patient to discuss discharge planning and assist with setting up primary care a ppointment and identify who will follow her INR levels. Patient goes to [facility]; a nd requested assistance transferring care to Dr. Guillory from her current provider. [facility] and patient accepted to be seen by Dr. Guillory. [facility] will also f ollow the INR [...] schedule coumadin f/u and primary care appt. [facility] Ksbokg-[phone] Sherrill Reed MD - 09/29/2014 3:41 PM PDTFormatting of this note might be different from the origi nal. Progress Notes by Sherrill Barnes MD at 09/29/141540 Author: Sherrill Barnes MD Service: Hospitalist Author Type: Physician Filed: 09/29/142122 Date of Service: 09/29/141540 Status: Addendum Lead Software Developer: Sherrill Barnes MD (Physician) Related Notes: Original Note by Sherrill Barnes MD (Physician) filed at 09/29/141543 [facility] Service: Hospitalist Progress Note Hospital Day: LOS: [...] Date of Service: 09/29/14 0901 Status: Signed Lead Software Developer: Bryan Ceja MD (Physician) Related Notes: Original Note by Bryan Ceja MD (Physician) filed at 09/29/14 0908 [facility] Service: Cardiology Progress Note Name of Rubber Press Tender: Bryan Ceja MD I have seen the [...] left anterior fascicular block, normal P wave, [place] interval. No significant T waves. ST-T segment consistent with ischemia, prolonge d QT. September 24, 2014, at [facility] showed atrial fibrillation with rapid ventricular [...] Notes by Sherrill Barnes MD at 09/28/14 7920 Author: Sherrill Barnes MD Service: Hospitalist Author Type: Physician Filed: 09/28/14 6888 Date of Service: 09/28/14 1607 Status: Signed Lead Software Developer: Sherrill Barnes MD (Physician) [facility] Service: Hospitalist Progress Note Hospital Day: LOS: [...] Notes by Sherrill Barnes MD at 09/27/14 2957 Author: Sherrill Barnes MD Service: Hospitalist Author Type: Physician Filed: 09/27/14 1701 Date of Service: 09/27/141653 Status: Addendum Lead Software Developer: Sherrill Barnes MD (Physician) Related Notes: Original Note by Sherrill Barnes MD (Physician) filed at 09/27/14 8263 [facility] Service: Hospitalist Progress Note Hospital Day: LOS: [...] mg/kg BID and stop coumadin for now,[facility]. meds.continue BBlocker,ASA,co zaar,statin,lasix. 2.DM2 stable BG continue [...] Author: Lisset Boss Service: (none) Author Type: Air Brush Artist Filed: 09/27/14 1013 Date of Service: 09/27/14 1012 Status: Signed Lead Software Developer: Lisset Boss (Database Developer) GPS enrolled, Pt would not like assistance scheduling, we will ask her again at time of fir st phone call. ender son, LAURA Potter - 09/26/2014 4:20 PM PDTFormatting of this note might be different fr om the original. Progress Notes by Nadia Lewis PA-C at 09/26/14 1620 Author: Nadia Lewis PA-C Service: Cardiology Author Type: Physician Stitch Bonding Machine Drawer In - Certified Filed: 09/29/14 1130 Date of Service: 09/26/14 1620 Status: Attested Lead Software Developer: Nadia Lewis PA-C (Physician Stitch Bonding Machine Drawer In - Certified) Related Notes: Original Note by Nadia Lewis PA-C (Physician Stitch Bonding Machine Drawer In - Certified ) filed at 09/28/14 1637 Cosigner: Bryan Ceja MD at 09/29/14 1227 Attestation signed by Bryan Ceja MD at 09/29/14 1227 I saw and examined the patient with Nadia Lewis PA-C. I have reviewed the tests per formed. I agree with the assessment and plan as documented in the note. Bryan Ceja MD 09/29/2014 [facility] Service: Cardiology Progress Note Name of Rubber Press Tender: Bryan Ceja MD I have seen the [...] anterior fasc icular block, normal P wave, [place] interval. No significant T waves. ST-T segment consistent wi th ischemia, prolonged QT. September 24, 2014, at [facility] reviewed personally and showed atrial fibrillation [...] nding artery and mid left circumflex artery, [place] FFR for the right coronary artery and [...] Notes by Desiree Jean MD at 09/26/14 9568 Author: Desiree Jean MD Service: (none) Author Type: Physician Filed: 09/26/14 8787 Date of Service: 09/26/14 1618 Status: Signed Lead Software Developer: Desiree Jean MD (Physician) [facility] Service: Hospitalist Progress Note Pt: Kimberlee Peguero [...] hours. No results for input(s): PHART, PO2ART, QLP9INE, M8VKNNEU, BEART in the last 168 hours. Recent [...] recent event need recheck in 3-4 w [place] as out patient on anticoagulation lovenox with coumadin INR 1.1 today F/ up INR in am NSTEMI with acute sys CHF Had cardiac raisa on Non-ST elevation myocardial infarction with severe systolic dysfunction with ejection fraction 30% to 35%, and severe mitral valve regurgitation.. 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 YAQUELIN Review F/ up generator repairer recommendation on ASA Statin lasix betablocker and [...] Author: MOLLY Rowley Service: (none) Author Type: Clothes Drier Repairer Filed: 09/26/141217 Date of Service: 09/26/141216 Status: Signed Lead Software Developer: MOLLY Rowley (Clothes Drier Repairer) Pt is 78 years old and independent [...] 09/26/14834 Date of Service: 09/26/14832 Status: Signed Lead Software Developer: Tayolr Corona RN (Registered Nurse) YAQUELIN done. Pt [...] 09/26/14650 Date of Service: 09/26/14521 Status: Addendum Lead Software Developer: Patria Seals RN (Registered Nurse) Related Notes: Original Note by Patria Seals RN (Registered Nurse) filed at 09/26/14 053 2 0520. Pt converted to A-Fib, HR 100-140's. Pt asymptomatic. VSS. Dr. Rubin advised to mo nitor for 30 minutes to 1 hour to see if pt converts back to NS. Will consider digoxin if n ecessary. Will continue to monitor [place]BECA [place] 0654. Patient's HR is better controlled; A-Fib 80-90's. Pt is scheduled for a YAQUELIN at [address] Rubin advised to continue to monitor and generator repairer to treat if necessary. [place] onver [place] Transaction, Provider Unknown - 09/25/2014 9:07 PM PDT Nurse Progress Note by Asuncion Carmona RN at 09/25/142106 Author: Asuncion Carmona RN Service: (none) Author Type: Registered Nurse Filed: 09/25/142107 Date of Service: 09/25/142106 Status: Signed Lead Software Developer: Asuncion Carmona RN (Registered Nurse) 2044: Pt [...] 09/25/141712 Date of Service: 09/25/141657 Status: Addendum Lead Software Developer: Sherrill Barnes MD (Physician) Related Notes: Original Note by Sherrill Barnes MD (Physician) filed at 09/25/141711 [facility] Service: Hospitalist Progress Note Hospital Day: LOS: [...] 37* >40 mg/dL Final Testing performed at [facility], [facility] [place] [address] Triglycerides Date Value Ref Range Status 09/25/2014 122 <150 mg/dL Final Testing performed at [facility], [facility] [place] [address] LDL CALC Date Value Ref Range Status 09/25/2014 60 <100 mg/dL Final Testing performed at [facility], [address] [place] [address] CHOLESTEROL Date Value Ref Range Status 09/25/2014 121 <200 mg/dL Final Testing performed at [facility], [address] [place] [address] Lab Results Component Value Date HGBA1C 6.3* [...] Date of Service: 09/25/14 1610 Status: Signed Lead Software Developer: Sophie Maldonado RN (Registered Nurse) Pt off the floor to dental laboratory worker for angiogram. Bilateral groin prepped. NPO since 104. Report given to REBECA Bhakta w/ dental laboratory worker. onver [place] Transaction, Provider Unknown - 09/25/2014 1:12 PM PDT Progress Notes by Jayda Blue RD at 09/25/14 1312 Author: Jayda Blue RD Service: (none) Author Type: Registered Dietitian Filed: 09/25/14 1312 Date of Service: 09/25/14 1312 Status: Signed Lead Software Developer: Jayda Blue RD (Registered Dietitian) 09/25/14 1256 [...] Estimated Energy Needs Total Energy Estimated Needs 1019-3812 kcals Method for Estimating Needs 25-30 kcal/kg [...] 09/25/1448 Date of Service: 09/25/14543 Status: Signed Lead Software Developer: Rosanne Tidwell RN (Registered Nurse) Pt was [...] 09/24/142038 Date of Service: 09/24/142038 Status: Signed Lead Software Developer: Wayne Zhang RPH (Pharmacist) Note ccl 58.5ml/min meds reviewed [facility] docume nted in this [...] + + | Historically converted procedure from [facility] Epic environment | EXTERNAL LAB | + [...] | | | | | performed at [facility] | | | | | | [address];[place], [place] | | | | | | [address] | | | | + + + [...] EXTERNAL | | | | performed at [facility], [address] | K/uL | LAB | | | | [address], | | | | | | [place] [address] | | | | + + + + + + | Red Blood | 4.41Comment: Testing | 3.70 - 5.10 | EXTERNAL | | | Cells | performed at [facility], [address] | M/uL | LAB | | | Counted | [address], | | | | | | [place] [address] | | | | + + + + + + | Hemoglobin | 13.0Comment: Testing | 11.3 - 15.5 | EXTERNAL | | | | performed at [facility], [address] | g/dL | LAB | | | | [address], | | | | | | [place] [address] | | | | + + + + + + | Hematocrit, | 39.2Comment: Testing | 34.0 - 46.0 % | EXTERNAL | | | POC | performed at [facility], [address] | | LAB | | | | [address], | | | | | | [place] [address] | | | | + + + + + + | MCV | 89.0Comment: Testing | 80.0 - 100.0 fl | EXTERNAL | | | | performed at [facility], [address] | | LAB | | | | [address], | | | | | | [place] [address] | | | | + + + + + + | MCH | 29.5Comment: Testing | 27.0 - 34.0 pg | EXTERNAL | | | | performed at [facility], [address] | | LAB | | | | [address], | | | | | | [place] [address] | | | | + + + + + + | MCHC | 33.1Comment: Testing | 32.0 - 35.5 | EXTERNAL | | | | performed at [facility], [address] | g/dL | LAB | | | | [address], | | | | | | [place] [address] | | | | + + + + + + | RDW-CV | 45.5Comment: Testing | 37 - 53 fl | EXTERNAL | | | | performed at [facility], [address] | | LAB | | | | [address], | | | | | | [place] [address] | | | | + + + + + + | Platelet | 229Comment: Testing | 150 - 400 K/uL | EXTERNAL | | | Count | performed at [facility], [address] | | LAB | | | Plasma | [address], | | | | | | [place] [address] | | | | + + + + + + | MPV | 8.4Comment: Testing | fl | EXTERNAL | | | | performed at [facility], [address] | | LAB | | | | [address], | | | | | | [place] [address] | | | | + + + + + + | Differentia | AUTOMATEDComment: | | EXTERNAL | | | l Type | Testing performed at | | LAB | | | | [facility], [address] | | | | | | [place] | | | | | | [address] | | | | + + + + + + | % Segmented | 69.84Comment: Testing | % | EXTERNAL | | | | performed at [facility], [address] | | LAB | | | Neutrophils | [address], | | | | | | [place] [address] | | | | + + + + + + | % | 17.71Comment: Testing | % | EXTERNAL | | | Lymphocytes | performed at [facility], [address] | | LAB | | | | [address], | | | | | | [place] [address] | | | | + + + + + + | % Monocytes | 7.47Comment: Testing | % | EXTERNAL | | | | performed at [facility], [address] | | LAB | | | | [address], | | | | | | [place] [address] | | | | + + + + + + | % | 4.22Comment: Testing | % | EXTERNAL | | | Eosinophils | performed at [facility], [address] | | LAB | | | | [address], | | | | | | [place] [address] | | | | + + + + + + | % Basophils | 0.76Comment: Testing | % | EXTERNAL | | | | performed at [facility], [address] | | LAB | | | | [address], | | | | | | [place] [address] | | | | + + + + + + | Absolute | 5.55Comment: Testing | 1.90 - 7.40 | EXTERNAL | | | Segmented | performed at [facility], [address] | K/uL | LAB | | | Neutrophils | [address], | | | | | | [place] [address] | | | | + + + + + + | Absolute | 1.41Comment: Testing | 1.00 - 3.90 | EXTERNAL | | | Lymphocytes | performed at [facility], [address] | K/uL | LAB | | | | [address], | | | | | | [place] [address] | | | | + + + + + + | Absolute | 0.59Comment: Testing | 0.00 - 0.80 | EXTERNAL | | | Monocytes | performed at [facility], [address] | K/uL | LAB | | | | [address], | | | | | | [place] [address] | | | | + + + + + + | Absolute | 0.34Comment: Testing | 0.00 - 0.50 | EXTERNAL | | | Eosinophils | performed at [facility], [address] | K/uL | LAB | | | | [address], | | | | | | [place] [address] | | | | + + + + + + | Absolute | 0.06Comment: Testing | 0.00 - 0.10 | EXTERNAL | | | Basophils | performed at [facility], [address] | K/uL | LAB | | | | [address], | | | | | | [place] [address] | | | | + + + [...] | | | | | [place] [address] | | | | + + + + + + | K | 3.7Comment: Testing | 3.5 - 4.9 | EXTERNAL | | | | performed at [facility], [address] | mmol/L | LAB | | | | [address], | | | | | | [place] [address] | | | | + + + + + + | Cl | 107Comment: Testing | 99 - 109 mmol/L | EXTERNAL | | | | performed at [facility], [address] | | LAB | | | | [address], | | | | | | [place] [address] | | | | + + + + + + | CO2 | 29Comment: Testing | 23 - 32 mmol/L | EXTERNAL | | | | performed at [facility], [address] | | LAB | | | | [address], | | | | | | [place] [address] | | | | + + + + + + | Anion Gap | 3 (L)Comment: Testing | 5 - 20 mmol/L | EXTERNAL | | | | performed at [facility], [address] | | LAB | | | | [address], | | | | | | [place] [address] | | | | + + + + + + | Glucose, | 96Comment: Testing | 65 - 99 mg/dL | EXTERNAL | | | Fasting | performed at [facility], [address] | | LAB | | | | [address], | | | | | | [place] [address] | | | | + + + + + + | BUN | 13Comment: Testing | 8 - 25 mg/dL | EXTERNAL | | | | performed at [facility], [address] | | LAB | | | | [address], | | | | | | [place] [address] | | | | + + + + + + | Creatinine | 0.77Comment: Testing | 0.50 - 1.00 | EXTERNAL | | | | performed at [facility], [address] | mg/dL | LAB | | | | [address], | | | | | | [place] [address] | | | | + + + + + + | BUN/Creatin | 17Comment: Testing | | EXTERNAL | | | ine Ratio | performed at [facility], [address] | | LAB | | | | [address], | | | | | | [place] [address] | | | | + + + + + + | Calcium | 9.4Comment: Testing | 8.5 - 10.5 | EXTERNAL | | | | performed at [facility], [address] | mg/dL | LAB | | | | [facility], | | | | | | [place] [address] | | | | + + + [...] | | | | | | [facility], | | | | | | [place] [address] | | | | + + + [...] + + | [facility] | EXTERNAL LAB | + + + [...] | | left radial artery cannulized with 6-[place]izen [place] Slender sheath, 2.5 mg | | | verapamil, 200 mcg nitroglycerin, and 5000 international units | | | heparin given through the sheath. Over a 260 exchange wire a | | | 6-[place]izen [place] XB3.5 guide advanced to the ascending aorta, [...] left radial artery | | cannulized with 6-[place] Slender sheath, 2.5 mg verapamil, 200 mcg | | nitroglycerin, and 5000 international units heparin given through the | | sheath. | | | | Over a 260 exchange wire a 6-Citizen [place] XB3.5 guide advanced to the ascending | [...] | | | Clotting | performed at [facility];888 | seconds | LAB | | | time, POC | [address];[place], [place] | | | | | | [address] | | | | + + + [...] | | | | | performed at [facility] | | | | | | [facility];[place], [place] | | | | | | [address] | | | | + + + [...] | | | | | [place] [address] | | | | + + + + + + | Red Blood | 4.43Comment: Testing | 3.70 - 5.10 | EXTERNAL | | | Cells | performed at [facility], [address] | M/uL | LAB | | | Counted | [address], | | | | | | [place] [address] | | | | + + + + + + | Hemoglobin | 13.1Comment: Testing | 11.3 - 15.5 | EXTERNAL | | | | performed at [facility], [address] | g/dL | LAB | | | | [address], | | | | | | [place] [address] | | | | + + + + + + | Hematocrit, | 39.8Comment: Testing | 34.0 - 46.0 % | EXTERNAL | | | POC | performed at [facility], [address] | | LAB | | | | [address], | | | | | | [place] [address] | | | | + + + + + + | MCV | 89.7Comment: Testing | 80.0 - 100.0 fl | EXTERNAL | | | | performed at [facility], [address] | | LAB | | | | [address], | | | | | | [place] [address] | | | | + + + + + + | MCH | 29.6Comment: Testing | 27.0 - 34.0 pg | EXTERNAL | | | | performed at [facility], [address] | | LAB | | | | [address], | | | | | | [place] [address] | | | | + + + + + + | MCHC | 33.0Comment: Testing | 32.0 - 35.5 | EXTERNAL | | | | performed at [facility], [address] | g/dL | LAB | | | | [address], | | | | | | [place] [address] | | | | + + + + + + | RDW-CV | 45.9Comment: Testing | 37 - 53 fl | EXTERNAL | | | | performed at [facility], [address] | | LAB | | | | [address], | | | | | | [place] [address] | | | | + + + + + + | Platelet | 231Comment: Testing | 150 - 400 K/uL | EXTERNAL | | | Count | performed at [facility], [address] | | LAB | | | Plasma | [address], | | | | | | [place] [address] | | | | + + + + + + | MPV | 8.3Comment: Testing | fl | EXTERNAL | | | | performed at [facility], [address] | | LAB | | | | [address], | | | | | | [place] [address] | | | | + + + + + + | Differentia | AUTOMATEDComment: | | EXTERNAL | | | l Type | Testing performed at | | LAB | | | | [facility], [address] | | | | | | [place] | | | | | | [address] | | | | + + + + + + | % Segmented | 72.81Comment: Testing | % | EXTERNAL | | | | performed at [facility], [address] | | LAB | | | Neutrophils | [address], | | | | | | [place] [address] | | | | + + + + + + | % | 14.65Comment: Testing | % | EXTERNAL | | | Lymphocytes | performed at [facility], [address] | | LAB | | | | [address], | | | | | | [place] [address] | | | | + + + + + + | % Monocytes | 8.33Comment: Testing | % | EXTERNAL | | | | performed at [facility], [address] | | LAB | | | | [address], | | | | | | [place] [address] | | | | + + + + + + | % | 3.54Comment: Testing | % | EXTERNAL | | | Eosinophils | performed at [facility], [address] | | LAB | | | | [address], | | | | | | [place] [address] | | | | + + + + + + | % Basophils | 0.67Comment: Testing | % | EXTERNAL | | | | performed at [facility], [address] | | LAB | | | | [address], | | | | | | [place] [address] | | | | + + + + + + | Absolute | 5.28Comment: Testing | 1.90 - 7.40 | EXTERNAL | | | Segmented | performed at [facility], [address] | K/uL | LAB | | | Neutrophils | [address], | | | | | | [place] [address] | | | | + + + + + + | Absolute | 1.06Comment: Testing | 1.00 - 3.90 | EXTERNAL | | | Lymphocytes | performed at [facility], [address] | K/uL | LAB | | | | [address], | | | | | | [place] [address] | | | | + + + + + + | Absolute | 0.60Comment: Testing | 0.00 - 0.80 | EXTERNAL | | | Monocytes | performed at [facility], [address] | K/uL | LAB | | | | [address], | | | | | | [place] [address] | | | | + + + + + + | Absolute | 0.26Comment: Testing | 0.00 - 0.50 | EXTERNAL | | | Eosinophils | performed at [facility], [address] | K/uL | LAB | | | | [address], | | | | | | [place] [address] | | | | + + + + + + | Absolute | 0.05Comment: Testing | 0.00 - 0.10 | EXTERNAL | | | Basophils | performed at [facility], [address] | K/uL | LAB | | | | [address], | | | | | | [place] [address] | | | | + + + [...] | | | | | [place] [address] | | | | + + + + + + | K | 3.3 (L)Comment: Testing | 3.5 - 4.9 | EXTERNAL | | | | performed at [facility], [address] | mmol/L | LAB | | | | [address], | | | | | | [place] [address] | | | | + + + + + + | Cl | 105Comment: Testing | 99 - 109 mmol/L | EXTERNAL | | | | performed at [facility], [address] | | LAB | | | | [address], | | | | | | [place] [address] | | | | + + + + + + | CO2 | 26Comment: Testing | 23 - 32 mmol/L | EXTERNAL | | | | performed at [facility], [address] | | LAB | | | | [address], | | | | | | [place] [address] | | | | + + + + + + | Anion Gap | 10Comment: Testing | 5 - 20 mmol/L | EXTERNAL | | | | performed at [facility], [address] | | LAB | | | | [address], | | | | | | [place] [address] | | | | + + + + + + | Glucose, | 120 (H)Comment: Testing | 65 - 99 mg/dL | EXTERNAL | | | Fasting | performed at [facility], [address] | | LAB | | | | [address], | | | | | | [place] [address] | | | | + + + + + + | BUN | 16Comment: Testing | 8 - 25 mg/dL | EXTERNAL | | | | performed at [facility], [address] | | LAB | | | | [address], | | | | | | [place] [address] | | | | + + + + + + | Creatinine | 0.92Comment: Testing | 0.50 - 1.00 | EXTERNAL | | | | performed at [facility], [address] | mg/dL | LAB | | | | [address], | | | | | | [place] [address] | | | | + + + + + + | BUN/Creatin | 17Comment: Testing | | EXTERNAL | | | ine Ratio | performed at [facility] [facility], [address] | | LAB | | | | [address], | | | | | | [place] [address] | | | | + + + + + + | Calcium | 9.2Comment: Testing | 8.5 - 10.5 | EXTERNAL | | | | performed at [facility], [address] | mg/dL | LAB | | | | [address], | | | | | | [place] [address] | | | | + + + [...] Ledesma, | | | | | | [place] [address] | | | | + + + [...] | | | | | performed at [facility];[address] | | | | | | [facility];[place], [place] | | | | | | [address] | | | | + + + [...] EXTERNAL | | | | performed at [facility], [address] | K/uL | LAB | | | | [address], | | | | | | [place] [address] | | | | + + + + + + | Red Blood | 4.46Comment: Testing | 3.70 - 5.10 | EXTERNAL | | | Cells | performed at [facility], [address] | M/uL | LAB | | | Counted | [address], | | | | | | [place] [address] | | | | + + + + + + | Hemoglobin | 13.2Comment: Testing | 11.3 - 15.5 | EXTERNAL | | | | performed at [facility], [address] | g/dL | LAB | | | | [address], | | | | | | [place] [address] | | | | + + + + + + | Hematocrit, | 39.8Comment: Testing | 34.0 - 46.0 % | EXTERNAL | | | POC | performed at [facility], [address] | | LAB | | | | [address], | | | | | | [place] [address] | | | | + + + + + + | MCV | 89.4Comment: Testing | 80.0 - 100.0 fl | EXTERNAL | | | | performed at [facility], [address] | | LAB | | | | [address], | | | | | | [place] [address] | | | | + + + + + + | MCH | 29.7Comment: Testing | 27.0 - 34.0 pg | EXTERNAL | | | | performed at [facility], [address] | | LAB | | | | [address], | | | | | | [place] [address] | | | | + + + + + + | MCHC | 33.2Comment: Testing | 32.0 - 35.5 | EXTERNAL | | | | performed at [facility], [address] | g/dL | LAB | | | | [address], | | | | | | [place] [address] | | | | + + + + + + | RDW-CV | 46.4Comment: Testing | 37 - 53 fl | EXTERNAL | | | | performed at [facility], [address] | | LAB | | | | [address], | | | | | | [place] [address] | | | | + + + + + + | Platelet | 225Comment: Testing | 150 - 400 K/uL | EXTERNAL | | | Count | performed at [facility], [address] | | LAB | | | Plasma | [address], | | | | | | [place] [address] | | | | + + + + + + | MPV | 8.3Comment: Testing | fl | EXTERNAL | | | | performed at [facility], [address] | | LAB | | | | [address], | | | | | | [place] [address] | | | | + + + + + + | Differentia | AUTOMATEDComment: | | EXTERNAL | | | l Type | Testing performed at | | LAB | | | | [facility], [address] | | | | | | [place] | | | | | | [address] | | | | + + + + + + | % Segmented | 76.31Comment: Testing | % | EXTERNAL | | | | performed at [facility], [address] | | LAB | | | Neutrophils | [address], | | | | | | [place] [address] | | | | + + + + + + | % | 12.61Comment: Testing | % | EXTERNAL | | | Lymphocytes | performed at [facility], [address] | | LAB | | | | [address], | | | | | | [place] [address] | | | | + + + + + + | % Monocytes | 6.78Comment: Testing | % | EXTERNAL | | | | performed at [facility], [address] | | LAB | | | | [address], | | | | | | [place] [address] | | | | + + + + + + | % | 3.71Comment: Testing | % | EXTERNAL | | | Eosinophils | performed at [facility], [address] | | LAB | | | | [address], | | | | | | [place] [address] | | | | + + + + + + | % Basophils | 0.59Comment: Testing | % | EXTERNAL | | | | performed at [facility], [address] | | LAB | | | | [address], | | | | | | [place] [address] | | | | + + + + + + | Absolute | 6.27Comment: Testing | 1.90 - 7.40 | EXTERNAL | | | Segmented | performed at [facility], [address] | K/uL | LAB | | | Neutrophils | [address], | | | | | | [place] [address] | | | | + + + + + + | Absolute | 1.04Comment: Testing | 1.00 - 3.90 | EXTERNAL | | | Lymphocytes | performed at [facility], [address] | K/uL | LAB | | | | [address], | | | | | | [place] [address] | | | | + + + + + + | Absolute | 0.56Comment: Testing | 0.00 - 0.80 | EXTERNAL | | | Monocytes | performed at [facility], [address] | K/uL | LAB | | | | [address], | | | | | | [place] [address] | | | | + + + + + + | Absolute | 0.31Comment: Testing | 0.00 - 0.50 | EXTERNAL | | | Eosinophils | performed at [facility], [address] | K/uL | LAB | | | | [address], | | | | | | [place] [address] | | | | + + + + + + | Absolute | 0.05Comment: Testing | 0.00 - 0.10 | EXTERNAL | | | Basophils | performed at [facility], [address] | K/uL | LAB | | | | [address], | | | | | | [place] [address] | | | | + + + [...] | | | | | [place] [address] | | | | + + + + + + | K | 3.6Comment: Testing | 3.5 - 4.9 | EXTERNAL | | | | performed at [facility], [address] | mmol/L | LAB | | | | [address], | | | | | | [place] [address] | | | | + + + + + + | Cl | 105Comment: Testing | 99 - 109 mmol/L | EXTERNAL | | | | performed at [facility], [address] | | LAB | | | | [address], | | | | | | [place] [address] | | | | + + + + + + | CO2 | 25Comment: Testing | 23 - 32 mmol/L | EXTERNAL | | | | performed at [facility], [address] | | LAB | | | | [address], | | | | | | [place] [address] | | | | + + + + + + | Anion Gap | 11Comment: Testing | 5 - 20 mmol/L | EXTERNAL | | | | performed at [facility], [address] | | LAB | | | | [address], | | | | | | [place] [address] | | | | + + + + + + | Glucose, | 90Comment: Testing | 65 - 99 mg/dL | EXTERNAL | | | Fasting | performed at [facility], [address] | | LAB | | | | [address], | | | | | | [place] [address] | | | | + + + + + + | BUN | 11Comment: Testing | 8 - 25 mg/dL | EXTERNAL | | | | performed at [facility], [address] | | LAB | | | | [address], | | | | | | [place] [address] | | | | + + + + + + | Creatinine | 0.75Comment: Testing | 0.50 - 1.00 | EXTERNAL | | | | performed at [facility], [address] | mg/dL | LAB | | | | [address], | | | | | | [place] [address] | | | | + + + + + + | BUN/Creatin | 15Comment: Testing | | EXTERNAL | | | ine Ratio | performed at [facility], [address] | | LAB | | | | [address], | | | | | | [place] [address] | | | | + + + + + + | Calcium | 9.0Comment: Testing | 8.5 - 10.5 | EXTERNAL | | | | performed at [facility], [address] | mg/dL | LAB | | | | [address], | | | | | | [place] [address] | | | | + + + [...] | | | | | | at [facility], [address] | | | | | | [address], | | | | | | [place] [address] | | | | + + + [...] | | | | | performed at [facility];[address] | | | | | | [address];[place] | | | | | | [address] | | | | + + + [...] | | | | | | [place] [address] | | | | + + + + + + | Red Blood | 4.36Comment: Testing | 3.70 - 5.10 | EXTERNAL | | | Cells | performed at [facility], [address] | M/uL | LAB | | | Counted | [address], | | | | | | [place] [address] | | | | + + + + + + | Hemoglobin | 12.9Comment: Testing | 11.3 - 15.5 | EXTERNAL | | | | performed at [facility], [address] | g/dL | LAB | | | | [address], | | | | | | [place] [address] | | | | + + + + + + | Hematocrit, | 39.0Comment: Testing | 34.0 - 46.0 % | EXTERNAL | | | POC | performed at [facility], [address] | | LAB | | | | [address], | | | | | | [place] [address] | | | | + + + + + + | MCV | 89.5Comment: Testing | 80.0 - 100.0 fl | EXTERNAL | | | | performed at [facility], [address] | | LAB | | | | [address], | | | | | | [place] [address] | | | | + + + + + + | MCH | 29.6Comment: Testing | 27.0 - 34.0 pg | EXTERNAL | | | | performed at [facility], [address] | | LAB | | | | [address], | | | | | | [place] [address] | | | | + + + + + + | MCHC | 33.0Comment: Testing | 32.0 - 35.5 | EXTERNAL | | | | performed at [facility], [address] | g/dL | LAB | | | | [address], | | | | | | [place], [place] [address] | | | | + + + + + + | RDW-CV | 45.1Comment: Testing | 37 - 53 fl | EXTERNAL | | | | performed at [facility], [address] | | LAB | | | | [address], | | | | | | [place], [place] [address] | | | | + + + + + + | Platelet | 203Comment: Testing | 150 - 400 K/uL | EXTERNAL | | | Count | performed at [facility], [address] | | LAB | | | Plasma | [address], | | | | | | [place], [place] [address] | | | | + + + + + + | MPV | 8.5Comment: Testing | fl | EXTERNAL | | | | performed at [facility], [address] | | LAB | | | | [address], | | | | | | [place] [address] | | | | + + + + + + | Differentia | AUTOMATEDComment: | | EXTERNAL | | | l Type | Testing performed at | | LAB | | | | [facility], [address] | | | | | | [place] | | | | | | [address] | | | | + + + + + + | % Segmented | 68.25Comment: Testing | % | EXTERNAL | | | | performed at [facility], [address] | | LAB | | | Neutrophils | [address], | | | | | | [place] [address] | | | | + + + + + + | % | 19.10Comment: Testing | % | EXTERNAL | | | Lymphocytes | performed at [facility], [address] | | LAB | | | | [address], | | | | | | [place] [address] | | | | + + + + + + | % Monocytes | 7.31Comment: Testing | % | EXTERNAL | | | | performed at [facility], [address] | | LAB | | | | [address], | | | | | | [place] [address] | | | | + + + + + + | % | 4.67Comment: Testing | % | EXTERNAL | | | Eosinophils | performed at [facility], [address] | | LAB | | | | [address], | | | | | | [place] [address] | | | | + + + + + + | % Basophils | 0.67Comment: Testing | % | EXTERNAL | | | | performed at [facility], [address] | | LAB | | | | [address], | | | | | | [place] [address] | | | | + + + + + + | Absolute | 5.09Comment: Testing | 1.90 - 7.40 | EXTERNAL | | | Segmented | performed at [facility], [address] | K/uL | LAB | | | Neutrophils | [address], | | | | | | [place] [address] | | | | + + + + + + | Absolute | 1.42Comment: Testing | 1.00 - 3.90 | EXTERNAL | | | Lymphocytes | performed at [facility], [address] | K/uL | LAB | | | | [address], | | | | | | [place] [address] | | | | + + + + + + | Absolute | 0.55Comment: Testing | 0.00 - 0.80 | EXTERNAL | | | Monocytes | performed at [facility], [address] | K/uL | LAB | | | | [address], | | | | | | [place] [address] | | | | + + + + + + | Absolute | 0.35Comment: Testing | 0.00 - 0.50 | EXTERNAL | | | Eosinophils | performed at [facility], [address] | K/uL | LAB | | | | [address], | | | | | | [place] [address] | | | | + + + + + + | Absolute | 0.05Comment: Testing | 0.00 - 0.10 | EXTERNAL | | | Basophils | performed at [facility], [address] | K/uL | LAB | | | | [address], | | | | | | [place] [address] | | | | + + + [...] | | | | | [place] [address] | | | | + + + + + + | K | 3.6Comment: Testing | 3.5 - 4.9 | EXTERNAL | | | | performed at [facility], [address] | mmol/L | LAB | | | | [address], | | | | | | [place] [address] | | | | + + + + + + | Cl | 105Comment: Testing | 99 - 109 mmol/L | EXTERNAL | | | | performed at [facility], [address] | | LAB | | | | [address], | | | | | | [place] [address] | | | | + + + + + + | CO2 | 25Comment: Testing | 23 - 32 mmol/L | EXTERNAL | | | | performed at [facility], [address] | | LAB | | | | [address], | | | | | | [place] [address] | | | | + + + [...] | | | | | [place] [address] | | | | + + + + + + | BUN | 11Comment: Testing | 8 - 25 mg/dL | EXTERNAL | | | | performed at [facility], [address] | | LAB | | | | [address], | | | | | | [place] [address] | | | | + + + + + + | Creatinine | 0.77Comment: Testing | 0.50 - 1.00 | EXTERNAL | | | | performed at [facility], [address] | mg/dL | LAB | | | | [address], | | | | | | [place] [address] | | | | + + + + + + | BUN/Creatin | 14Comment: Testing | | EXTERNAL | | | ine Ratio | performed at [facility], [address] | | LAB | | | | [address], | | | | | | [place] [address] | | | | + + + + + + | Calcium | 9.0Comment: Testing | 8.5 - 10.5 | EXTERNAL | | | | performed at [facility], [address] | mg/dL | LAB | | | | [facility], | | | | | | [place] [address] | | | | + + + [...] | | | | | | at [facility], [address] | | | | | | [email or web address], | | | | | | [place] [address] | | | | + + + [...] | | | | | performed at [facility];[address] | | | | | | [facility];[place], [place] | | | | | | [address] | | | | + + + [...] EXTERNAL | | | | performed at [facility], [address] | K/uL | LAB | | | | [address], | | | | | | [place] [address] | | | | + + + + + + | Red Blood | 4.42Comment: Testing | 3.70 - 5.10 | EXTERNAL | | | Cells | performed at [facility], [address] | M/uL | LAB | | | Counted | [address], | | | | | | [place] [address] | | | | + + + + + + | Hemoglobin | 13.1Comment: Testing | 11.3 - 15.5 | EXTERNAL | | | | performed at [facility], [address] | g/dL | LAB | | | | [address], | | | | | | [place] [address] | | | | + + + + + + | Hematocrit, | 39.3Comment: Testing | 34.0 - 46.0 % | EXTERNAL | | | POC | performed at [facility], [address] | | LAB | | | | [address], | | | | | | [place] [address] | | | | + + + + + + | MCV | 88.9Comment: Testing | 80.0 - 100.0 fl | EXTERNAL | | | | performed at [facility], [address] | | LAB | | | | [address], | | | | | | [place] [address] | | | | + + + + + + | MCH | 29.7Comment: Testing | 27.0 - 34.0 pg | EXTERNAL | | | | performed at [facility], [address] | | LAB | | | | [address], | | | | | | [place] [address] | | | | + + + + + + | MCHC | 33.4Comment: Testing | 32.0 - 35.5 | EXTERNAL | | | | performed at [facility], [address] | g/dL | LAB | | | | [address], | | | | | | [place] [address] | | | | + + + + + + | RDW-CV | 46.4Comment: Testing | 37 - 53 fl | EXTERNAL | | | | performed at [facility], [address] | | LAB | | | | [address], | | | | | | [place] [address] | | | | + + + + + + | Platelet | 216Comment: Testing | 150 - 400 K/uL | EXTERNAL | | | Count | performed at [facility], [address] | | LAB | | | Plasma | [address], | | | | | | [place] [address] | | | | + + + + + + | MPV | 8.1Comment: Testing | fl | EXTERNAL | | | | performed at [facility], [address] | | LAB | | | | [address], | | | | | | [place] [address] | | | | + + + + + + | Differentia | AUTOMATEDComment: | | EXTERNAL | | | l Type | Testing performed at | | LAB | | | | [facility], [address] | | | | | | [place] | | | | | | [address] | | | | + + + + + + | % Segmented | 67.07Comment: Testing | % | EXTERNAL | | | | performed at [facility], [address] | | LAB | | | Neutrophils | [address], | | | | | | [place] [address] | | | | + + + + + + | % | 20.82Comment: Testing | % | EXTERNAL | | | Lymphocytes | performed at [facility], [address] | | LAB | | | | [address], | | | | | | [place] [address] | | | | + + + + + + | % Monocytes | 5.74Comment: Testing | % | EXTERNAL | | | | performed at [facility], [address] | | LAB | | | | [address], | | | | | | [place] [address] | | | | + + + + + + | % | 5.45Comment: Testing | % | EXTERNAL | | | Eosinophils | performed at [facility], [address] | | LAB | | | | [address], | | | | | | [place] [address] | | | | + + + + + + | % Basophils | 0.92Comment: Testing | % | EXTERNAL | | | | performed at [facility], [address] | | LAB | | | | [address], | | | | | | [place] [address] | | | | + + + + + + | Absolute | 5.64Comment: Testing | 1.90 - 7.40 | EXTERNAL | | | Segmented | performed at [facility], [address] | K/uL | LAB | | | Neutrophils | [address], | | | | | | [place] [address] | | | | + + + + + + | Absolute | 1.75Comment: Testing | 1.00 - 3.90 | EXTERNAL | | | Lymphocytes | performed at [facility], [address] | K/uL | LAB | | | | [address], | | | | | | [place] [address] | | | | + + + + + + | Absolute | 0.48Comment: Testing | 0.00 - 0.80 | EXTERNAL | | | Monocytes | performed at [facility], [address] | K/uL | LAB | | | | [address], | | | | | | [place] [address] | | | | + + + + + + | Absolute | 0.46Comment: Testing | 0.00 - 0.50 | EXTERNAL | | | Eosinophils | performed at [facility], [address] | K/uL | LAB | | | | [address], | | | | | | [place] [address] | | | | + + + + + + | Absolute | 0.08Comment: Testing | 0.00 - 0.10 | EXTERNAL | | | Basophils | performed at [facility], [address] | K/uL | LAB | | | | [address], | | | | | | [place] [address] | | | | + + + [...] | | | | | [place] [address] | | | | + + + + + + | K | 3.4 (L)Comment: Testing | 3.5 - 4.9 | EXTERNAL | | | | performed at [facility], [address] | mmol/L | LAB | | | | [address], | | | | | | [place] [address] | | | | + + + + + + | Cl | 106Comment: Testing | 99 - 109 mmol/L | EXTERNAL | | | | performed at [facility], [address] | | LAB | | | | [address], | | | | | | [place] [address] | | | | + + + + + + | CO2 | 25Comment: Testing | 23 - 32 mmol/L | EXTERNAL | | | | performed at [facility], [address] | | LAB | | | | [address], | | | | | | [place] [address] | | | | + + + + + + | Anion Gap | 10Comment: Testing | 5 - 20 mmol/L | EXTERNAL | | | | performed at [facility], [address] | | LAB | | | | [address], | | | | | | [place] [address] | | | | + + + + + + | Glucose, | 107 (H)Comment: Testing | 65 - 99 mg/dL | EXTERNAL | | | Fasting | performed at [facility], [address] | | LAB | | | | [address], | | | | | | [place] [address] | | | | + + + + + + | BUN | 10Comment: Testing | 8 - 25 mg/dL | EXTERNAL | | | | performed at [facility], [address] | | LAB | | | | [address], | | | | | | [place] [address] | | | | + + + + + + | Creatinine | 0.77Comment: Testing | 0.50 - 1.00 | EXTERNAL | | | | performed at [facility], [address] | mg/dL | LAB | | | | [address], | | | | | | [place] [address] | | | | + + + + + + | BUN/Creatin | 13Comment: Testing | | EXTERNAL | | | ine Ratio | performed at [facility], [address] | | LAB | | | | [address], | | | | | | [place] [address] | | | | + + + + + + | Calcium | 9.0Comment: Testing | 8.5 - 10.5 | EXTERNAL | | | | performed at [facility], [address] | mg/dL | LAB | | | | [address], | | | | | | [place] [address] | | | | + + + + + + | Protein, | 6.1 (L)Comment: Testing | 6.3 - 8.2 g/dL | EXTERNAL | | | Total | performed at [facility], [address] | | LAB | | | | [address], | | | | | | [place] [address] | | | | + + + + + + | Albumin | 3.6Comment: Testing | 3.3 - 4.8 g/dL | EXTERNAL | | | | performed at [facility], [address] | | LAB | | | | [address], | | | | | | [place] [address] | | | | + + + + + + | Globulin | 2.5Comment: Testing | 1.3 - 4.9 g/dL | EXTERNAL | | | | performed at [facility], [address] | | LAB | | | | [address], | | | | | | [place] [address] | | | | + + + + + + | A/G Ratio | 1.4Comment: Testing | 1.0 - 2.4 | EXTERNAL | | | | performed at [facility], [address] | | LAB | | | | [address], | | | | | | [place] [address] | | | | + + + + + + | Bilirubin | 0.9Comment: Testing | 0.1 - 1.5 mg/dL | EXTERNAL | | | Total | performed at [facility], [address] | | LAB | | | | [address], | | | | | | [place] [address] | | | | + + + + + + | ALP, | 72Comment: Testing | 35 - 115 U/L | EXTERNAL | | | External | performed at [facility], [address] | | LAB | | | | [address], | | | | | | [place] [address] | | | | + + + + + + | AST | 22Comment: Testing | 10 - 45 U/L | EXTERNAL | | | | performed at [facility], [address] | | LAB | | | | [address], | | | | | | [place] [address] | | | | + + + + + + | ALT | 17Comment: Testing | 10 - 65 U/L | EXTERNAL | | | | performed at [facility], [address] | | LAB | | | | [address] [facility], | | | | | | [place] [address] | | | | + + + [...] | | | | | | at [facility], [address] | | | | | | [address] [facility], | | | | | | [place] [address] | | | | + + + [...] TR maxP.12 mmHg TR Vmax: 3.12 m/s [employer]: | | | KE Authenticated by: Bryan [...] 44.12 mmHgTR maxP.12 mmHgTR Vmax: 3.12 m/s [employer]: Nikated by: | | Bryan Preciadoqaikatrin MDReport [...] measured by Doppler, indicate systolic flow reversal jaramillo ggestive of severe MR. | |Pericardium: There [...] |TR Vmax: 3.12 m/s | | | |Harbor Boat Pilot: ANGEL | |Authenticated by: Bryan Ceja MD [...] + + | Historically converted procedure from [facility] environment | EXTERNAL LAB | + [...] | | | | | performed at [facility];[address] | | | | | | [facility];[place], [place] | | | | | | [address] | | | | + + + [...] | | | | | [place] [address] | | | | + + + + + + | Red Blood | 4.56Comment: Testing | 3.70 - 5.10 | EXTERNAL | | | Cells | performed at [facility], [address] | M/uL | LAB | | | Counted | [address], | | | | | | [place] [address] | | | | + + + + + + | Hemoglobin | 13.5Comment: Testing | 11.3 - 15.5 | EXTERNAL | | | | performed at [facility], [address] | g/dL | LAB | | | | [address], | | | | | | [place] [address] | | | | + + + + + + | Hematocrit, | 40.5Comment: Testing | 34.0 - 46.0 % | EXTERNAL | | | POC | performed at [facility], [address] | | LAB | | | | [address], | | | | | | [place] [address] | | | | + + + + + + | MCV | 88.8Comment: Testing | 80.0 - 100.0 fl | EXTERNAL | | | | performed at [facility], [address] | | LAB | | | | [address], | | | | | | [place] [address] | | | | + + + + + + | MCH | 29.7Comment: Testing | 27.0 - 34.0 pg | EXTERNAL | | | | performed at [facility], [address] | | LAB | | | | [facility] [address], | | | | | | [place] [address] | | | | + + + + + + | MCHC | 33.4Comment: Testing | 32.0 - 35.5 | EXTERNAL | | | | performed at [facility], [address] | g/dL | LAB | | | | [address], | | | | | | [place] [address] | | | | + + + + + + | RDW-CV | 44.6Comment: Testing | 37 - 53 fl | EXTERNAL | | | | performed at [facility], [address] | | LAB | | | | [address], | | | | | | [place] [address] | | | | + + + + + + | Platelet | 215Comment: Testing | 150 - 400 K/uL | EXTERNAL | | | Count | performed at [facility], [address] | | LAB | | | Plasma | [address], | | | | | | [place] [address] | | | | + + + + + + | MPV | 8.4Comment: Testing | fl | EXTERNAL | | | | performed at [facility], [address] | | LAB | | | | [address], | | | | | | [place] [address] | | | | + + + + + + | Differentia | AUTOMATEDComment: | | EXTERNAL | | | l Type | Testing performed at | | LAB | | | | [facility], [address] | | | | | | [place] | | | | | | [address] | | | | + + + + + + | % Segmented | 69.91Comment: Testing | % | EXTERNAL | | | | performed at [facility], [address] | | LAB | | | Neutrophils | [address], | | | | | | [place] [address] | | | | + + + + + + | % | 20.30Comment: Testing | % | EXTERNAL | | | Lymphocytes | performed at [facility], [address] | | LAB | | | | [address], | | | | | | [place] [address] | | | | + + + + + + | % Monocytes | 6.60Comment: Testing | % | EXTERNAL | | | | performed at [facility], [address] | | LAB | | | | [address], | | | | | | [place] [address] | | | | + + + + + + | % | 2.36Comment: Testing | % | EXTERNAL | | | Eosinophils | performed at [facility], [address] | | LAB | | | | [address], | | | | | | [place] [address] | | | | + + + + + + | % Basophils | 0.83Comment: Testing | % | EXTERNAL | | | | performed at [facility], [address] | | LAB | | | | [address], | | | | | | [place] [address] | | | | + + + + + + | Absolute | 5.45Comment: Testing | 1.90 - 7.40 | EXTERNAL | | | Segmented | performed at [facility], [address] | K/uL | LAB | | | Neutrophils | [address], | | | | | | [place] [address] | | | | + + + + + + | Absolute | 1.58Comment: Testing | 1.00 - 3.90 | EXTERNAL | | | Lymphocytes | performed at [facility], [address] | K/[address] | LAB | | | | [address], | | | | | | [place] [address] | | | | + + + + + + | Absolute | 0.52Comment: Testing | 0.00 - 0.80 | EXTERNAL | | | Monocytes | performed at [facility], [address] | K/[address] | LAB | | | | [address], | | | | | | [place] [address] | | | | + + + + + + | Absolute | 0.18Comment: Testing | 0.00 - 0.50 | EXTERNAL | | | Eosinophils | performed at [facility], [address] | K/u[address] | LAB | | | | [address], | | | | | | [place] [address] | | | | + + + + + + | Absolute | 0.07Comment: Testing | 0.00 - 0.10 | EXTERNAL | | | Basophils | performed at [facility], [address] | K[address] | LAB | | | | [address], | | | | | | [place] [address] | | | | + + + [...] [address], | | | | | | [place] [address] | | | | + + + + + + | K | 3.5Comment: Testing | 3.5 - 4.9 | EXTERNAL | | | | performed at [facility], [address] | mmol/L | LAB | | | | [address], | | | | | | [place] [address] | | | | + + + + + + | Cl | 108Comment: Testing | 99 - 109 mmol/L | EXTERNAL | | | | performed at [facility], [address] | | LAB | | | | [address], | | | | | | [place] [address] | | | | + + + + + + | CO2 | 22 (L)Comment: Testing | 23 - 32 mmol/L | EXTERNAL | | | | performed at [facility], [address] | | LAB | | | | [address], | | | | | | [place] [address] | | | | + + + + + + | Anion Gap | 13Comment: Testing | 5 - 20 mmol/L | EXTERNAL | | | | performed at [facility], [address] | | LAB | | | | [address], | | | | | | [place] [address] | | | | + + + + + + | Glucose, | 120 (H)Comment: Testing | 65 - 99 mg/dL | EXTERNAL | | | Fasting | performed at [facility], [address] | | LAB | | | | [address], | | | | | | [place] [address] | | | | + + + + + + | BUN | 10Comment: Testing | 8 - 25 mg/dL | EXTERNAL | | | | performed at [facility], [address] | | LAB | | | | [address], | | | | | | [place] [address] | | | | + + + + + + | Creatinine | 0.68Comment: Testing | 0.50 - 1.00 | EXTERNAL | | | | performed at [facility], [address] | mg/dL | LAB | | | | [address], | | | | | | [place] [address] | | | | + + + + + + | BUN/Creatin | 15Comment: Testing | | EXTERNAL | | | ine Ratio | performed at [facility], [address] | | LAB | | | | [address], | | | | | | [place] [address] | | | | + + + + + + | Calcium | 8.8Comment: Testing | 8.5 - 10.5 | EXTERNAL | | | | performed at [facility], [address] | mg/dL | LAB | | | | [address], | | | | | | [place] [address] | | | | + + + [...] [place], | | | | | | [place] [address] | | | | + + + [...] + + | Historically converted procedure from [facility] | EXTERNAL LAB | + + [...] | right common femoral arteriotomy using a 6-[place] Mynx closure | | | device. INDICATIONS [...] lidocaine. Right radial artery cannulized with a 6[place] | | | Slender sheath. Verapamil 2.5 [...] right common femoral artery cannulized with a 6-[place] sheath. | | | Right common femoral [...] was exchanged | | | for a 5-[place] FR4 diagnostic catheter that was advanced to [...] was | | | exchanged for a 6-[place] JR4 guide that was advanced to the [...] was closed using a | | | 6-[place] Mynx closure device with good hemostasis. The [...] the right common femoral arteriotomy using a 6-[place] Mynx | | closure device. | | [...] radial artery cannulized with a | | 6-[place] Slender sheath. Verapamil 2.5 mg, nitroglycerin 200 [...] femoral artery | | cannulized with a 6-[place] sheath. Right common femoral angiogram was | [...] a guidewire it was exchanged for a 5-[place] FR4 diagnostic catheter | | that was [...] guidewire the catheter was exchanged for a 6-[place] JR4 guide that | | was advanced [...] removed. The arteriotomy was closed using a 6-[place] Mynx closure | | device with good [...] | right common femoral arteriotomy using a 6-[place] Mynx closure | | | device. INDICATIONS [...] lidocaine. Right radial artery cannulized with a 6[place] | | | Slender sheath. Verapamil 2.5 [...] right common femoral artery cannulized with a 6-[place] sheath. | | | Right common femoral [...] was exchanged | | | for a 5-[place] FR4 diagnostic catheter that was advanced to [...] was | | | exchanged for a 6-[place] JR4 guide that was advanced to the [...] was closed using a | | | 6-[place] Mynx closure device with good hemostasis. The [...] the right common femoral arteriotomy using a 6-[place] Mynx | | closure device. | | [...] radial artery cannulized with a | | 6-[place] Slender sheath. Verapamil 2.5 mg, nitroglycerin 200 [...] femoral artery | | cannulized with a 6-[place] sheath. Right common femoral angiogram was | [...] a guidewire it was exchanged for a 5-[place] FR4 diagnostic catheter | | that was [...] guidewire the catheter was exchanged for a 6-[place] JR4 guide that | | was advanced [...] removed. The arteriotomy was closed using a 6-[place] Mynx closure | | device with good [...] | right common femoral arteriotomy using a 6-[place] Mynx closure | | | device. INDICATIONS [...] lidocaine. Right radial artery cannulized with a 6[place] | | | Slender sheath. Verapamil 2.5 [...] right common femoral artery cannulized with a 6-[place] sheath. | | | Right common femoral [...] was exchanged | | | for a 5-[place] FR4 diagnostic catheter that was advanced to [...] was | | | exchanged for a 6-[place] JR4 guide that was advanced to the [...] was closed using a | | | 6-[place] Mynx closure device with good hemostasis. The [...] the right common femoral arteriotomy using a 6-[place] Mynx | | closure device. | | [...] radial artery cannulized with a | | 6-[place] Slender sheath. Verapamil 2.5 mg, nitroglycerin 200 [...] femoral artery | | cannulized with a 6-[place] sheath. Right common femoral angiogram was | [...] a guidewire it was exchanged for a 5-[place] FR4 diagnostic catheter | | that was [...] guidewire the catheter was exchanged for a 6-[place] JR4 guide that | | was advanced [...] removed. The arteriotomy was closed using a 6-[place] Mynx closure | | device with good [...] | | | Clotting | performed at [facility];888 | seconds | LAB | | | time, POC | [address];[place], [place] | | | | | | [address] | | | | + + + [...] + + | Historically converted procedure from [facility] environment | EXTERNAL LAB | + + [...] | | | structurally normal. Tricuspid Valve: Npaj-bf-ubjomteh tricuspid | | | regurgitation present. Tricuspid [...] TV A [place]iel: 0.52 m/s TV Dec [place]: | | | 1.34 m/s2 TV Dec Time: 304.58 ms TV E Maciel: 0.41 m/s TV E/A | | | Ratio: 0.77 Harbor Boat Pilot: ANGEL Authenticated by: Bryan Ceja MD | [...] | tricuspid valve appears structurally normal.Tricuspid Valve: Inac-pr-vueghqhf tricuspid | | regurgitation present.Tricuspid Valve: There [...] (A-L): | | 28.92 ml/m2LAAs A2C: 18.45 [id number] A-L A2C: 51.84 mlLAESV MOD A2C: 50.96 mlLALs | | A2C: 5.57 cmLAAs A4C: 17.24 [id number] A-L A4C: 48.66 mlLAESV MOD A4C: 48.28 [...] 28.92 cmAVA Vmax: 2.31 cm2AVA (VTI): 2.22 mh2QFXT (Vmax): | | 0.00 cm2/m2AVAI (VTI): 0.00 cm2/m2LVCI Dopp: 2.46 l/[id number] Dopp: 4.43 | | l/minHR: 68.95 BPMLVOT [...] A Maciel: 0.52 m/sTV | | Dec [place]: 1.34 m/s2TV Dec Time: 304.58 msTV E [place]iel: 0.41 m/sTV E/A Ratio: 0.77 | | Harbor Boat Pilot: Joseticated by: Bryan Ceja MDReport Date/Time: 09-25-2014 [...] A Maciel: 0.52 m/s | |TV Dec [place]: 1.34 m/s2 | |TV Dec Time: 304.58 ms | |TV E [place]: 0.41 m/s | |TV E/A Ratio: 0.77 | | | |Harbor Boat Pilot: KE | |Authenticated by: Bryan Ceja MD [...] | | | | | performed at [facility];888 | | | | | | [facility];[place], [place] | | | | | | [address] | | | | + + + [...] | | | | | | ACUTE NC Testing | | | | | | performed at [facility];888 | | | | | | [address];[place], [place] | | | | | | [address] | | | | + + + [...] | | | Patient | performed at [facility];[address] | | LAB | | | | [address];[place], [place] | | | | | | [address] | | | | + + + [...] | | | | | performed at [facility];888 | | | | | | [address];[place], [place] | | | | | | [address] | | | | + + + [...] | | | | | [place] [address] | | | | + + + + + + | Red Blood | 4.80Comment: Testing | 3.70 - 5.10 | EXTERNAL | | | Cells | performed at [facility], [address] | M/uL | LAB | | | Counted | [address], | | | | | | [place] [address] | | | | + + + + + + | Hemoglobin | 14.0Comment: Testing | 11.3 - 15.5 | EXTERNAL | | | | performed at [facility], [address] | g/dL | LAB | | | | [address], | | | | | | [place] [address] | | | | + + + + + + | Hematocrit, | 43.0Comment: Testing | 34.0 - 46.0 % | EXTERNAL | | | POC | performed at [facility], [address] | | LAB | | | | [address], | | | | | | [place] [address] | | | | + + + + + + | MCV | 89.5Comment: Testing | 80.0 - 100.0 fl | EXTERNAL | | | | performed at [facility], [address] | | LAB | | | | [address], | | | | | | [place] [address] | | | | + + + + + + | MCH | 29.1Comment: Testing | 27.0 - 34.0 pg | EXTERNAL | | | | performed at [facility], [address] | | LAB | | | | [address], | | | | | | [place] [address] | | | | + + + + + + | MCHC | 32.5Comment: Testing | 32.0 - 35.5 | EXTERNAL | | | | performed at [facility], [address] | g/dL | LAB | | | | [address], | | | | | | [place] [address] | | | | + + + + + + | RDW-CV | 44.6Comment: Testing | 37 - 53 fl | EXTERNAL | | | | performed at [facility], [address] | | LAB | | | | [address], | | | | | | [place] [address] | | | | + + + + + + | Platelet | 238Comment: Testing | 150 - 400 K/uL | EXTERNAL | | | Count | performed at [facility], [address] | | LAB | | | Plasma | [address], | | | | | | [place] [address] | | | | + + + + + + | MPV | 8.2Comment: Testing | fl | EXTERNAL | | | | performed at [facility], [address] | | LAB | | | | [address], | | | | | | [place] [address] | | | | + + + + + + | Differentia | AUTOMATEDComment: | | EXTERNAL | | | l Type | Testing performed at | | LAB | | | | [facility], [address] | | | | | | [place] | | | | | | [address] | | | | + + + + + + | % Segmented | 66.49Comment: Testing | % | EXTERNAL | | | | performed at [facility], [address] | | LAB | | | Neutrophils | [address], | | | | | | [place] [address] | | | | + + + + + + | % | 22.73Comment: Testing | % | EXTERNAL | | | Lymphocytes | performed at [facility], [address] | | LAB | | | | [address], | | | | | | [place] [address] | | | | + + + + + + | % Monocytes | 5.74Comment: Testing | % | EXTERNAL | | | | performed at [facility], [address] | | LAB | | | | [address], | | | | | | [place] [address] | | | | + + + + + + | % | 4.08Comment: Testing | % | EXTERNAL | | | Eosinophils | performed at [facility], [address] | | LAB | | | | [address], | | | | | | [place] [address] | | | | + + + + + + | % Basophils | 0.96Comment: Testing | % | EXTERNAL | | | | performed at [facility], [address] | | LAB | | | | [address], | | | | | | [place] [address] | | | | + + + + + + | Absolute | 5.13Comment: Testing | 1.90 - 7.40 | EXTERNAL | | | Segmented | performed at [facility], [address] | K/uL | LAB | | | Neutrophils | [address], | | | | | | [place] [address] | | | | + + + + + + | Absolute | 1.76Comment: Testing | 1.00 - 3.90 | EXTERNAL | | | Lymphocytes | performed at [facility], [address] | K/uL | LAB | | | | [address], | | | | | | [place] [address] | | | | + + + + + + | Absolute | 0.44Comment: Testing | 0.00 - 0.80 | EXTERNAL | | | Monocytes | performed at [facility], [address] | K/uL | LAB | | | | [address], | | | | | | [place] [address] | | | | + + + + + + | Absolute | 0.32Comment: Testing | 0.00 - 0.50 | EXTERNAL | | | Eosinophils | performed at [facility], [address] | K/uL | LAB | | | | [address], | | | | | | [place] [address] | | | | + + + + + + | Absolute | 0.07Comment: Testing | 0.00 - 0.10 | EXTERNAL | | | Basophils | performed at [facility], [address] | K/uL | LAB | | | | [address], | | | | | | [place] [address] | | | | + + + [...] EXTERNAL | | | | performed at [facility], [address] | uIU/mL | LAB | | | | [address], | | | | | | [place] [address] | | | | + + + [...] | | | (REF) | performed at [facility], [address] | | LAB | | | | [address], | | | | | | [place] [address] | | | | + + + [...] EXTERNAL | | | | performed at [facility], [address] | | LAB | | | | [address], | | | | | | [place] [address] | | | | + + + [...] EXTERNAL | | | | performed at [facility];888 | | LAB | | | | [address];[place] | | | | | | [address] | | | | + + + [...] | | | | | [place] [address] | | | | + + + [...] | EXTERNAL | | | A1c | [place] Diabetes | | LAB | | | [...] | | | | | performed at [facility], [facility] | | | | | | [address], | | | | | | [place] [address] | | | | + + + [...] | | | | | performed at [facility], [address] | | | | | | [address], | | | | | | [place] [address] | | | | + + + [...] | | | | | [place] [address] | | | | + + + + + + | Triglycerid | 122Comment: Testing | mg/dL | EXTERNAL | | | es | performed at [facility], [address] | | LAB | | | | [address], | | | | | | [place] [address] | | | | + + + + + + | HDL | 37 (L)Comment: Testing | mg/dL | EXTERNAL | | | | performed at [facility], [address] | | LAB | | | | [address], | | | | | | [place] [address] | | | | + + + + + + | LDL, | 60Comment: Testing | mg/dL | EXTERNAL | | | Calculated | performed at [facility], [address] | | LAB | | | | [address], | | | | | | [place] [address] | | | | + + + [...] | | | | | [place] [address] | | | | + + + + + + | K | 3.6Comment: Testing | 3.5 - 4.9 | EXTERNAL | | | | performed at [facility], [address] | mmol/L | LAB | | | | [address], | | | | | | [place] [address] | | | | + + + + + + | Cl | 105Comment: Testing | 99 - 109 mmol/L | EXTERNAL | | | | performed at [facility], [address] | | LAB | | | | [address], | | | | | | [place] [address] | | | | + + + + + + | CO2 | 24Comment: Testing | 23 - 32 mmol/L | EXTERNAL | | | | performed at [facility], [address] | | LAB | | | | [address], | | | | | | [place] [address] | | | | + + + + + + | Anion Gap | 12Comment: Testing | 5 - 20 mmol/L | EXTERNAL | | | | performed at [facility], [address] | | LAB | | | | [address], | | | | | | [place] [address] | | | | + + + + + + | Glucose, | 154 (H)Comment: Testing | 65 - 99 mg/dL | EXTERNAL | | | Fasting | performed at [facility], [address] | | LAB | | | | [address], | | | | | | [place] [address] | | | | + + + + + + | BUN | 15Comment: Testing | 8 - 25 mg/dL | EXTERNAL | | | | performed at [facility], [address] | | LAB | | | | [address], | | | | | | [place] [address] | | | | + + + + + + | Creatinine | 0.90Comment: Testing | 0.50 - 1.00 | EXTERNAL | | | | performed at [facility], [address] | mg/dL | LAB | | | | [address], | | | | | | [place] [address] | | | | + + + + + + | BUN/Creatin | 17Comment: Testing | | EXTERNAL | | | ine Ratio | performed at [facility], [address] | | LAB | | | | [address], | | | | | | [place] [address] | | | | + + + + + + | Calcium | 9.3Comment: Testing | 8.5 - 10.5 | EXTERNAL | | | | performed at [facility], [address] | mg/dL | LAB | | | | [address] [facility], | | | | | | [place] [address] | | | | + + + [...] W | | | | | | [facility], | | | | | | [place] [address] | | | | + + + [...] | | | Patient | performed at [facility];888 | | LAB | | | | [address];[place] | | | | | | [address] | | | | + + + [...] | | | | | | ACUTE NC Testing | | | | | | performed at [facility];888 | | | | | | [facility];[place], [place] | | | | | | [address] | | | | + + + [...] Testing performed | | | at [facility], [address] [place] [address] | | + + + + +---------+ [...] EXTERNAL | | | | performed at [facility], [address] | | LAB | | | | [address], | | | | | | [place] [address] | | | | + + + + + + | Clarity | CLEARComment: Testing | | EXTERNAL | | | | performed at [facility], [address] | | LAB | | | | [address], | | | | | | [place] [address] | | | | + + + + + + | Specific | 1.015Comment: Testing | 1.002 - 1.030 | EXTERNAL | | | [place], | performed at [facility], [address] | | LAB | | | Urine | [address], | | | | | | [place] [address] | | | | + + + + + + | Leukocyte | SMALL (A)Comment: | | EXTERNAL | | | Esterase, | Testing performed at | | LAB | | | Urine | [facility], [address] | | | | | | [place] | | | | | | [address] | | | | + + + + + + | Nitrite, | NEGATIVEComment: Testing | | EXTERNAL | | | Urine | performed at [facility], [address] | | LAB | | | | [address], | | | | | | [place] [address] | | | | + + + + + + | Urobilinoge | 0.2Comment: Testing | mg/dL | EXTERNAL | | | n, Urine | performed at [facility], [address] | | LAB | | | | [address], | | | | | | [place] [address] | | | | + + + + + + | Protein, | NEGATIVEComment: Testing | mg/dL | EXTERNAL | | | Urine | performed at [facility], [address] | | LAB | | | | [address], | | | | | | [place] [address] | | | | + + + + + + | pH, Urine | 6.5Comment: Testing | 5.0 - 8.0 | EXTERNAL | | | | performed at [facility], [address] | | LAB | | | | [address], | | | | | | [place] [address] | | | | + + + + + + | Blood, | NEGATIVEComment: Testing | | EXTERNAL | | | Urine | performed at [facility], [address] | | LAB | | | | [address], | | | | | | [place] [address] | | | | + + + + + + | Ketones | 15 (A)Comment: Testing | mg/dL | EXTERNAL | | | | performed at [facility], [address] | | LAB | | | | [address], | | | | | | [place] [address] | | | | + + + + + + | Bilirubin, | NEGATIVEComment: Testing | | EXTERNAL | | | Urine | performed at [facility], [address] | | LAB | | | | [address], | | | | | | [place] [address] | | | | + + + + + + | Glucose, | NEGATIVEComment: Testing | mg/dL | EXTERNAL | | | Urine | performed at [facility], [address] | | LAB | | | | [address], | | | | | | [place] [address] | | | | + + + + + + | WBC, UA | 11-15Comment: Testing | 0 - 5 /hpf | EXTERNAL | | | | performed at [facility], [address] | | LAB | | | | [address], | | | | | | [place] [address] | | | | + + + + + + | RBC, UA | 0-2Comment: Testing | 0 - 5 /hpf | EXTERNAL | | | | performed at [facility], [address] | | LAB | | | | [address], | | | | | | [place] [address] | | | | + + + + + + | Epithelial | 26-50Comment: Testing | /lpf | EXTERNAL | | | Cells | performed at [facility], [address] | | LAB | | | | [address], | | | | | | [place] [address] | | | | + + + + + + | Bacteria, | 2+ (A)Comment: CULTURE | | EXTERNAL | | | UA | TO FOLLOWTesting | | LAB | | | | performed at [facility], [address] | | | | | | [address], | | | | | | [place] [address] | | | | + + + + + + | HYALINE | 0-2Comment: Testing | | EXTERNAL | | | CASTS UA | performed at [facility], [address] | | LAB | | | | [address], | | | | | | [place] [address] | | | | + + + [...] EXTERNAL | | | | performed at [facility];[address] | K/uL | LAB | | | | [address];[place] | | | | | | [address] | | | | + + + + + -+ | Red Blood | 4.88Comment: Testing | 3.70 - 5.10 | EXTERNAL | | | Cells | performed at [facility];[address] | M/uL | LAB | | | Counted | [address];[place] | | | | | | [address] | | | | + + + + + -+ | Hemoglobin | 14.2Comment: Testing | 11.3 - 15.5 | EXTERNAL | | | | performed at [facility];888 | g/dL | LAB | | | | [address];[place] | | | | | | [address] | | | | + + + + + -+ | Hematocrit, | 43.7Comment: Testing | 34.0 - 46.0 % | EXTERNAL | | | POC | performed at [facility];[address] | | LAB | | | | [address];[place] | | | | | | [address] | | | | + + + + + -+ | MCV | 89.4Comment: Testing | 80.0 - 100.0 fl | EXTERNAL | | | | performed at [facility];[address] | | LAB | | | | [address];[place] | | | | | | [address] | | | | + + + + + -+ | MCH | 29.2Comment: Testing | 27.0 - 34.0 pg | EXTERNAL | | | | performed at [facility];[address] | | LAB | | | | [address];[place] | | | | | | [address] | | | | + + + + + -+ | MCHC | 32.6Comment: Testing | 32.0 - 35.5 | EXTERNAL | | | | performed at [facility];888 | g/dL | LAB | | | | [address];[place] | | | | | | [address] | | | | + + + + + -+ | RDW-CV | 45.5Comment: Testing | 37 - 53 fl | EXTERNAL | | | | performed at [facility];[address] | | LAB | | | | [address];[place] | | | | | | [address] | | | | + + + + + -+ | Platelet | 247Comment: Testing | 150 - 400 K/uL | EXTERNAL | | | Count | performed at [facility];[address] | | LAB | | | Plasma | [address];[place] | | | | | | [address] | | | | + + + + + -+ | MPV | 7.5Comment: Testing | fl | EXTERNAL | | | | performed at [facility];[address] | | LAB | | | | [address];[place] | | | | | | [address] | | | | + + + + + -+ | Differentia | AUTOMATEDComment: | | EXTERNAL | | | l Type | Testing performed at | | LAB | | | | [facility];[address];[place] [address] | | | | + + + + + -+ | % Segmented | 60.73Comment: Testing | % | EXTERNAL | | | | performed at [facility];[address] | | LAB | | | Neutrophils | [address];[place] | | | | | | [address] | | | | + + + + + -+ | % | 28.34Comment: Testing | % | EXTERNAL | | | Lymphocytes | performed at [facility];[address] | | LAB | | | | [address];[place] | | | | | | [address] | | | | + + + + + -+ | % Monocytes | 6.65Comment: Testing | % | EXTERNAL | | | | performed at [facility];[address] | | LAB | | | | [address];[place] | | | | | | [address] | | | | + + + + + -+ | % | 3.10Comment: Testing | % | EXTERNAL | | | Eosinophils | performed at [facility];[address] | | LAB | | | | [address];[place] | | | | | | [address] | | | | + + + + + -+ | % Basophils | 1.18Comment: Testing | % | EXTERNAL | | | | performed at [facility];[address] | | LAB | | | | [address];[place] | | | | | | [address] | | | | + + + + + -+ | Absolute | 4.12Comment: Testing | 1.90 - 7.40 | EXTERNAL | | | Segmented | performed at [facility];[address] | K/uL | LAB | | | Neutrophils | [address];[place] | | | | | | [address] | | | | + + + + + -+ | Absolute | 1.93Comment: Testing | 1.00 - 3.90 | EXTERNAL | | | Lymphocytes | performed at [facility];[address] | K/uL | LAB | | | | [address];[place] | | | | | | [address] | | | | + + + + + -+ | Absolute | 0.45Comment: Testing | 0.00 - 0.80 | EXTERNAL | | | Monocytes | performed at [facility];[address] | K/uL | LAB | | | | [address];[place] | | | | | | [address] | | | | + + + + + -+ | Absolute | 0.21Comment: Testing | 0.00 - 0.50 | EXTERNAL | | | Eosinophils | performed at [facility];[address] | K/uL | LAB | | | | [address];[place] | | | | | | [address] | | | | + + + + + -+ | Absolute | 0.08Comment: Testing | 0.00 - 0.10 | EXTERNAL | | | Basophils | performed at [facility];[address] | K/uL | LAB | | | | [address];[place] | | | | | | [address] | | | | + + + + + -+ | Na | 143Comment: Testing | 135 - 143 | EXTERNAL | | | | performed at [facility];888 | mmol/L | LAB | | | | [address];[place] | | | | | | [address] | | | | + + + + + -+ | K | 3.6Comment: Testing | 3.5 - 4.9 | EXTERNAL | | | | performed at [facility];888 | mmol/L | LAB | | | | [address];[place] | | | | | | [address] | | | | + + + + + -+ | Cl | 109Comment: Testing | 99 - 109 mmol/L | EXTERNAL | | | | performed at [facility];[address] | | LAB | | | | [address];[place] | | | | | | [address] | | | | + + + + + -+ | CO2 | 25Comment: Testing | 23 - 32 mmol/L | EXTERNAL | | | | performed at [facility];[address] | | LAB | | | | [address];[place] | | | | | | [address] | | | | + + + + + -+ | Anion Gap | 13Comment: Testing | 5 - 20 mmol/L | EXTERNAL | | | | performed at [facility];[address] | | LAB | | | | [address];[place] | | | | | | [address] | | | | + + + + + -+ | Glucose, | 114 (H)Comment: Testing | 65 - 99 mg/dL | EXTERNAL | | | Fasting | performed at [facility] [place];[address] | | LAB | | | | [address];[place] | | | | | | [address] | | | | + + + + + -+ | BUN | 9Comment: Testing | 8 - 25 mg/dL | EXTERNAL | | | | performed at [facility] [place];[address] | | LAB | | | | [address];[place] | | | | | | [address] | | | | + + + + + -+ | Creatinine | 0.79Comment: Testing | 0.50 - 1.00 | EXTERNAL | | | | performed at [facility] [place];888 | mg/dL | LAB | | | | [address];[place] | | | | | | [address] | | | | + + + + + -+ | BUN/Creatin | 11Comment: Testing | | EXTERNAL | | | ine Ratio | performed at [facility] [place];[address] | | LAB | | | | [address];[place] | | | | | | [address] | | | | + + + + + -+ | Calcium | 8.8Comment: Testing | 8.5 - 10.5 | EXTERNAL | | | | performed at [facility] [place];[address] | mg/dL | LAB | | | | [address];[place] | | | | | | [address] | | | | + + + + + -+ | Protein, | 7.2Comment: Testing | 6.3 - 8.2 g/dL | EXTERNAL | | | Total | performed at [facility] [place];[address] | | LAB | | | | [address];[place] | | | | | | [address] | | | | + + + + + -+ | Albumin | 3.7Comment: Testing | 3.3 - 4.8 g/dL | EXTERNAL | | | | performed at [facility] [place];[address] | | LAB | | | | [address];[place] | | | | | | [address] | | | | + + + + + -+ | Globulin | 3.5Comment: Testing | 1.3 - 4.9 g/dL | EXTERNAL | | | | performed at [facility] [place];[address] | | LAB | | | | [address];[place] | | | | | | [address] | | | | + + + + + -+ | A/G Ratio | 1.1Comment: Testing | 1.0 - 2.4 | EXTERNAL | | | | performed at [facility] [place];[address] | | LAB | | | | [address];[place] | | | | | | [address] | | | | + + + + + -+ | Bilirubin | 0.8Comment: Testing | 0.1 - 1.5 mg/dL | EXTERNAL | | | Total | performed at [facility] [place];[address] | | LAB | | | | [address];[place] | | | | | | [address] | | | | + + + + + -+ | ALP, | 104Comment: Testing | 35 - 115 U/L | EXTERNAL | | | External | performed at [facility];[address] | | LAB | | | | [address];[place] | | | | | | [address] | | | | + + + + + -+ | AST | 26Comment: Testing | 10 - 45 U/L | EXTERNAL | | | | performed at [facility];[address] | | LAB | | | | [address];[place] | | | | | | [address] | | | | + + + + + -+ | ALT | 31Comment: Testing | 10 - 65 U/L | EXTERNAL | | | | performed at [facility];888 | | LAB | | | | [address];[place] | | | | | | [address] | | | | + + + [...] | | | | | | at [facility];[address] | | | | | [address];[place] [address] | | | | + + + + + -+ | CK, Total | 42Comment: Testing | 30 - 240 U/L | EXTERNAL | | | | performed at [facility];[address] | | LAB | | | | [address];[place] | | | | | | [address] | | | | + + + [...] | | | | | performed at [facility];[address] | | | | | | [address];[place] | | | | | | [address] | | | | + + + + + -+ | aPTT, | 30Comment: Testing | 23 - 32 seconds | EXTERNAL | | | Patient | performed at [facility];[address] | | LAB | | | | [address];[place] | | | | | | [address] | | | | + + + + + -+ | CK-MB | 1.1Comment: Testing | 0.5 - 3.6 ng/mL | EXTERNAL | | | | performed at [facility];[address] | | LAB | | | | [address];[place] | | | | | | [address] | | | | + + + [...] EXTERNAL | | | | performed at [facility];88 | | LAB | | | | [address];[place] | | | | | | [address] | | | | + + + [...] | | | | | ONLY, -COMPUTER (160), | | | | | | tape editor Nadia Smith | | | | | | (18) on 09/24/2014 | | | | | | 5:29:47 PM | | | | + + + + + + + + | Specimen | + + | | + + + + + | Narrative | Performed At | + + + | Historically converted procedure from [facility] Epic environment | EXTERNAL LAB | + [...] + + | CHF (congestive heart failure) ([facility]) Congestive heart failure, unspecified | + + | NSTEMI (non-ST elevated myocardial infarction) ([facility]) Acute myocardial infarction, | | subendocardial infarction, episode of care unspecified | + + documented in this encounter
--- OUTSIDE RECORDS SUMMARY | ~2019-11-15 | XMS | Encounter Summary ---
Demographics + + + | Address | [address] | | | [place] [address] | + + + | Home Phone | | + + + | Preferred Language | Unknown | + + + | Marital Status | | + + + | Jehovah'S Witness Affiliation | Unknown | + + + | Race | Unknown | + + + | Ethnic Group | Unknown | + + + Author + + + | Author | [facility] | | | and [place] | + + + | Organization | [facility] | | | and [place] | [...] Team Providers + +------+ + | Care Accounting/Finance Tutor Name | Role | Phone | + [...] Closed | | Cardiology | Diagnoses | Vy, | Louisah Johana | | | | | Mitral | MD Bryan | Cardiology | | | | | valve | [address] | [place] | | | | | disorders([address] | [address] | [address] | | | | | 4.0) | [address] | | | | | Procedures | [place] [address] | [place] | | | | | DIRECTOR OF EVENT SALES consult | Phone: | [phone] | | | | | | [phone] | Phone: | | | | | | Fax: | [phone] | | | | | | [phone] | Fax: | | | | | | | [phone] | +--------+--------+ + + + + Encounter Details +--------+---------+ + + + | Date | Type | Department | Care Team | Description | +--------+---------+ + + + | 02/24/ | Office | [facility] | Faith Aguayo | Atrial fibrillation, | | 2014 | Visit | CARDIOLOGY [facility] | MD Edy [address] | unspecified (HCC) | | | | [address] | [address] | (Primary Dx); | | | | [address] [place], [place] | [place] [address] | Coronary artery | | | | [address] | [phone] | disease involving | | | | [phone] | | [place] coronary | | | | | | [...] occluded LAD. To that end I wou walker recommend a viability study. If there is no viability in the LAD territory then surgical consultation to decide if she is robotic candidate. Recommend: She should undergo viability study, then surgical consultation Current medical management is appropriate Coronary artery disease involving [place] coronary artery without angina pectoris Feels much [...] remote stent of LAD. She presented to [facility] in 09/2014 with CHF and NSTEMI. HTC [...] 1 tablet by mouth 2 times daily. Qmrxntpazzb-Pjcozcldp-Wem C-Mn (GLUCOSAMINE CHONDR 500 COMPLEX PO) Take [...] on file as of 02/24/2015. Please note [facility] has a flaw in which medication corrections [...] contact me. Signed by: Faith Aguayo MD, [facility] 02/24/2015, 11:10 documented in this encounter Plan of Treatment Not [...] involving | | | | | | [place] coronary | | | | | | artery without | | | | | | angina pectoris | | + +--------+ + + + documented in this encounter Results ECG 12 lead (02/24/2015 9:33 AM PDT) + + + | Narrative | Performed At | + + + | Rubina Zepeda RAGHU Diehl 02/24/2015 9:33 See scanned tracing for | | | the provider's interpretation of EKG. | | + + + documented in this encounter Visit Diagnoses + + | Diagnosis | + + | Atrial fibrillation, unspecified - Primary | + + | Coronary artery disease involving [place] coronary artery without angina pectoris | + + | Mitral regurgitation Mitral valve disorders | + + documented in this encounter
--- OUTSIDE RECORDS SUMMARY | ~2019-11-15 | XMS | Encounter Summary ---
Demographics + + + | Address | [address] | | | [place] [address] | + + + | Home Phone [...] + | Author | [facility] | | | and [place] | + + + | Organization | [facility] | | | and [...] Team Providers + +------+ + | Care Process Automation Engineer Name | Role | Phone | + +------+ + PCP | Unavailable | + +------+ + Encounter Details +--------+ + + + + | Date | Type | Department | Care Team | Description | +--------+ + + + + | 10/28/ | Hospital | [facility] | | | | 2011 | Encounter | MED CTR XRAY [address] | | | | | | [place] | | | | | | [place] [address] | | | | | | [phone] | | | +--------+ + + + [...] Performed At | + + + | [facility] Diagnostic Imaging Department | [facility] | | [address] [facility] | [facility] | | ULTRASOUND OF THE [...] | | | Transcribed Date/Time: 10/29/2011 13:53 Hot Head Machine Operator: ANDREW | | | <Electronically Signed by Ever Can MD> 10/29/119 | | + + + + + | Procedure Note | + + | Jason, Pineda Conversion - 07/24/2013 5:19 PM [facility] | | Diagnostic Imaging Department [address] [facility] | | ULTRASOUND OF THE [...] | Signed by Ever Can MD> 10/29/11 6368 | | | |Pancreas as visualized is [...] 13:45 | |Transcribed Date/Time: 10/29/2011 13:53 | |Hot Head Machine Operator: ANDREW | |<Electronically Signed by Ever Can MD> 10/29/11 2109 | + + + +---------+ + + | Performing | Address | City/State/Zipcode | Phone Number | | Organization | | | | + +---------+ + + | [place] | | | | | [facility] | | | | + +---------+ + + documented in this encounter Visit Diagnoses Not on filedocumented in this encounter"
--- OUTSIDE RECORDS SUMMARY | ~2019-11-15 | XMS | Encounter Summary ---
Demographics + + + | Address | [address] | | | [place] [address] | + + + | Home Phone | | + + + | Preferred Language | Unknown | + + + | Marital Status | | + + + | Jewish Affiliation | Unknown | + + + | Race | Unknown | + + + | Ethnic Group | Unknown | + + + Author + + + | Author | [facility] | | | and [place] | + + + | Organization | [facility] | | | and [place] [...] Team Providers + +------+ + | Care Farm Technician Name | Role | Phone | + +------+ + | Eva nA MD | PCP | | + +------+ [...] | | | | | Procedures | [place] [address] | [place] | | | | | SHADE CLASSIFIER consult | Phone: | [phone] | | | | | | [phone] | Phone: | | | | | | Fax: | [phone] | | | | | | [phone] | Fax: | | | | | | | [phone] | +--------+--------+ + + + + Encounter Details +--------+---------+ + + + | Date | Type | Department | Care Team | Description | +--------+---------+ + + + | 02/24/ | Office | [facility] | Faith Aguayo | Atrial fibrillation, | | 2014 | Visit | CARDIOLOGY [facility] | MD Edy [address] | unspecified (HCC) | | | | NC[address] | [address] | (Primary Dx); | | | | [address] [place], [place] | [place] [address] | Coronary artery | | | | [address] | [phone] | disease involving | | | | [phone] | | [place] coronary | | | | | | [...] management is appropriate Coronary artery disease involving [place] coronary artery without angina pectoris Feels much [...] remote stent of LAD. She presented to [facility] in 09/2014 with CHF and NSTEMI. [...] 1 tablet by mouth 2 times daily. Jqpburvakba-Opmzsjeqa-Ndw C-Mn (GLUCOSAMINE CHONDR 500 COMPLEX PO) Take [...] on file as of 02/24/2015. Please note [facility] has a flaw in which medication [...] contact me. Signed by: Faith Aguayo MD, [facility] 02/24/2015, 11:10 documented in this [...] involving | | | | | | [place] coronary | | | | | | [...] + + | Coronary artery disease involving [place] coronary artery without angina pectoris | + + | Mitral regurgitation Mitral valve disorders | + + documented in this encounter
--- OUTSIDE RECORDS SUMMARY | ~2019-11-15 | XMS | Encounter Summary ---
Demographics + + + | Address | [address] | | | [place] [address] | + + + | Home Phone | | + + + | Preferred Language | Unknown | + + + | Marital Status | | + + + | Buddhist Affiliation | Unknown | + + + | Race | Unknown | + + + | Ethnic Group | Unknown | + + + Author + + + | Author | [facility] | | | and [place] | + + + | Organization | [facility] | | | and [place] [...] Team Providers + +------+ + | Care Senior Managing Director Name | Role | Phone | + +------+ + | Eva An MD | PCP | | + +------+ + Encounter Details +--------+ + + + + | Date | Type | Department | Care Team | Description | +--------+ + + + + | 11/09/ | Orders Only | [facility] | Conversion | | | 2014 | | CARDIOLOGY [place] | Transaction, | | | | | [address] | Provider Unknown | | | | | [place] | [phone] | | | | | [address] | | | | | | [phone] | | | +--------+ + + + [...] by Elisa Del Castillo RN at 11/10/14 0746 Author: Elisa Del Castillo RN Service: (none) Author Type: Registered Nurse Filed: 11/10/14 2564 Encounter Date: 11/10/2014 Status: Signed Assistant Business Manager: Elisa Del Castillo RN (Registered Nurse) Called [...]
--- OUTSIDE RECORDS SUMMARY | ~2019-11-15 | XMS | Encounter Summary ---
Demographics + + + | Address | [address] | | | [place] [address] | + + + | Home Phone | | + + + | Preferred Language | Unknown | + + + | Marital Status | | + + + | Episcopal Affiliation | Unknown | + + + | Race | Unknown | + + + | Ethnic Group | Unknown | + + + Author + + + | Author | [facility] | | | and [place] | + + + | Organization | [facility] | | | and [place] | [...] Team Providers + +------+ + | Care Premium Card Cancellation Clerk Name | Role | Phone | + +------+ + PCP | Unavailable | + +------+ + Encounter Details +--------+ + + + + | Date | Type | Department | Care Team | Description | +--------+ + + + + | 02/05/ | Hospital | [facility] | Lena Kern | | | 2011 | Encounter | HEART MED CTR | MD [address] | | | | | GENERIC CONV DEPT | [address] | | | | | [address] | [place] [address] | | | | | [place] | [phone] | | | | | [address] | | | | | | [phone] | | | +--------+ + + + [...] + + + + + | [facility] | [address] | [place] [address] | | | [facility] | | | | | LABORATORY | | | | + + + + + | [facility] | | | | | HEART [facility] | | | | | LABORATORY | | | | + + + + + documented in this encounter Visit Diagnoses Not on filedocumented in this encounter"
--- OUTSIDE RECORDS SUMMARY | ~2019-11-15 | XMS | Encounter Summary ---
Demographics + + + | Address | [address] | | | [place] [address] | + + + | Home Phone | | + + + | Preferred Language | Unknown | + + + | Marital Status | | + + + | Faith Affiliation | Unknown | + + + | Race | Unknown | + + + | Ethnic Group | Unknown | + + + Author + + + | Author | [facility] | | | and [place] | + + + | Organization | [facility] | | | and [place] [...] Team Providers + +------+ + | Care Handle Turner Name | Role | Phone | + +------+ + PCP | Unavailable | + +------+ + Encounter Details +--------+ + + + + | Date | Type | Department | Care Team | Description | +--------+ + + + + | 02/05/ | Hospital | [facility] | Lena Kern | | | 2011 | Encounter | HEART MED CTR | MD [address] | | | | | GENERIC CONV DEPT | [address] | | | | | [address] | [place] [address] | | | | | [place] | [phone] | | | | | [address] | | | | | | [phone] | | | +--------+ + + + [...] + + | [facility] | [address] | [place] [address] | | | [facility] | | | | | LABORATORY | | | | + + + + + | [facility] | | | | | HEART [facility] | | | | | LABORATORY | | | | + + + + + documented in this encounter Visit Diagnoses Not on filedocumented in this encounter"
--- OUTSIDE RECORDS SUMMARY | ~2019-11-15 | XMS | Encounter Summary ---
Demographics + + + | Address | [address] | | | [place] [address] | + + + | Home Phone | | + + + | Preferred Language | Unknown | + + + | Marital Status | | + + + | Baptist Affiliation | Unknown | + + + | Race | Unknown | + + + | Ethnic Group | Unknown | + + + Author + + + | Author | [facility] | | | and [place] | + + + | Organization | [facility] | | | and [place] [...] Team Providers + +------+ + | Care Pulp Mill Operator Name | Role | Phone | + +------+ + | Eva An MD | PCP | | + +------+ + Encounter Details +--------+ + + + + | Date | Type | Department | Care Team | Description | +--------+ + + + + | 11/09/ | Orders Only | [facility] | Conversion | | | 2014 | | CARDIOLOGY [place] | Transaction, | | | | | [address] | Provider Unknown | | | | | [place] | [phone] | | | | | [address] | | | | | | [phone] | | | +--------+ + + + [...] by Elisa Del Castillo RN at 11/10/14 3459 Author: Elisa Del Castillo RN Service: (none) Author Type: Registered Nurse Filed: 11/10/14 3179 Encounter Date: 11/10/2014 Status: Signed Ore Crusher: Elisa Del Castillo RN (Registered Nurse) Called patient and verified that Dr. Adolfo Guillory is managing her PT/INR results and dosage changes. Most recent INR is 1.5 [address] patient reports that Dr[address] Guillory has increased her do se to 2.5 mg daily. Elsia Del Castillo RN docume nted in this [...]
--- OUTSIDE RECORDS SUMMARY | ~2019-11-15 | XMS | Encounter Summary ---
Demographics + + + | Address | [address] | | | [place] [address] | + + + | Home Phone | | + + + | Preferred Language | Unknown | + + + | Marital Status | | + + + | Gnosticism Affiliation | Unknown | + + + | Race | Unknown | + + + | Ethnic Group | Unknown | + + + Author + + + | Author | [facility] | | | and [place] | + + + | Organization | [facility] | | | and [place] [...] Team Providers + +------+ + | Care It Network Engineer Name | Role | Phone | + +------+ + PCP | Unavailable | + +------+ + Encounter Details +--------+ + + + + | Date | Type | Department | Care Team | Description | +--------+ + + + + | 09/24/ | Hospital | [facility] | Sherrill Barnes MD | New onset atrial | | 2015 - | Encounter | [facility] | [address] | fibrillation (HCC); | | | | CARE FLOOR [address] | [place] [address] | CHF (congestive | | 10/01/ | [address] | [phone] | heart failure) | | 2015 | | [place], [place] | | ([facility]); NSTEMI | | | | [phone] | | (non-ST elevated | | | | [phone] | | myocardial | | | | | | infarction) ([facility]) | +--------+ + + + + Social [...] Summaries by Sherrill Barnes MD at 10/02/14 415 Author: Sherrill Barnes MD Service: Hospitalist Author Type: Physician Filed: 10/03/14 1628 Date of Service: 10/02/14 634 Status: Signed Oil Rag Washer: Sherrill Barnes MD (Physician) [facility] Service: Hospitalist Discharge Summary Date of [...] Significant Diagnostic Studies: -ray Chest 1 View [[id number]] Resulted: 09/25/14 0748 Order Status: Completed Updated: [...] are Mon- Fri 7:30am-4:00pm, Call as needed, Artificial Teeth Inspector Willow Wheatley and Patient Navigator Lisset. Bryan Ceja MD [address] [place] [address] [place] [address] Schedule an appointment as soon as possible for a visit in 2 week(s) [place] [address] [place] [id number] Follow up on 10/06/2014 Please go to follow-up appointment at SaturdayOctober 06 at 2:00pm. Dr. Guillory is [facility] new primary care physician and will follow patients INR levels as well. Eva An MD [facility] [address] [place] [address] Medication List START taking these medications clopidogrel [...] are the prescriptions that you need to pear picker. You may get the following medications [...] (none) Author Type: Registered Nurse Filed: 10/01/14 9317 Date of Service: 10/01/14 1230 Status: Signed Oil Rag Washer: Marcy Sosa RN (Registered Nurse) Pt discharged [...] Case Management by MOLLY Medina at 10/01/14 1397 Author: MOLLY Medina Service: (none) Author Type: Ld Teacher Filed: 10/01/14 3636 Date of Service: 10/01/14845 Status: Addendum Oil Rag Washer: MOLLY Medina (Ld Teacher) Related Notes: Original Note by MOLLY Medina (Ld Teacher) filed at 10/01/14 0930 CM met w/ pt re: d/c planning. [...] 09/30/141845 Date of Service: 09/30/141839 Status: Signed Oil Rag Washer: Sherrill Barnes MD (Physician) [facility] Service: Hospitalist Progress Note Hospital Day: [...] Case Management by MOLLY Shields at 09/30/14 1375 Author: MOLLY Shields Service: (none) Author Type: Ld Teacher Filed: 09/30/14 4842 Date of Service: 09/30/141554 Status: Addendum Oil Rag Washer: MOLLY Shields (Ld Teacher) Related Notes: Original Note by MOLLY Shields (Ld Teacher) filed at 09/30/14 2280 Cm met with patient to discuss discharge planning and assist with setting up primary care a ppointment and identify who will follow her INR levels. Patient goes to [facility]; a nd requested assistance transferring care to Dr. Guillory from her current provider. Cm call ed [facility] and patient accepted to be seen by Dr. Guillory. [facility] will also f ollow the INR [...] schedule coumadin f/u and primary care appt. [facility] Kmemen-[phone] Sherrill Reed MD - 09/29/2014 3:41 PM PDTFormatting of this note might be different from the origi nal. Progress Notes by Sherrill Barnes MD at 09/29/141540 Author: Sherrill Barnes MD Service: Hospitalist Author Type: Physician Filed: 09/29/142122 Date of Service: 09/29/141540 Status: Addendum Oil Rag Washer: Sherrill Barnes MD (Physician) Related Notes: Original Note by Sherrill Barnes MD (Physician) filed at 09/29/141543 [facility] Service: Hospitalist Progress Note Hospital Day: [...] Date of Service: 09/29/14 0901 Status: Signed Oil Rag Washer: Bryan Ceja MD (Physician) Related Notes: Original Note by Bryan Ceja MD (Physician) filed at 09/29/14 0908 [facility] Service: Cardiology Progress Note Name of Plant Technician/Control Room Operator: Bryan Ceja MD I have seen the [...] left anterior fascicular block, normal P wave, MA interval. No significant T waves. ST-T segment consistent with ischemia, prolonge d QT. September 24, 2014, at [facility] showed atrial fibrillation with rapid ventricular [...] Notes by Sherrill Barnes MD at 09/28/14 1186 Author: Sherrill Barnes MD Service: Hospitalist Author Type: Physician Filed: 09/28/14 4008 Date of Service: 09/28/14 1607 Status: Signed Oil Rag Washer: Sherrill Barnes MD (Physician) [facility] Service: Hospitalist Progress Note Hospital Day: [...] Notes by Sherrill Barnes MD at 09/27/14 7853 Author: Sherrill Barnes MD Service: Hospitalist Author Type: Physician Filed: 09/27/14 1706 Date of Service: 09/27/141653 Status: Addendum Oil Rag Washer: Sherrill Barnes MD (Physician) Related Notes: Original Note by Sherrill Barnes MD (Physician) filed at 09/27/14 5373 [facility] Service: Hospitalist Progress Note Hospital Day: [...] mg/kg BID and stop coumadin for now,[facility] meds.continue BBlocker,ASA,co zaar,statin,lasix. 2.DM2 stable BG continue [...] Author: Lisset Boss Service: (none) Author Type: Flight Engineer Helicopter Filed: 09/27/14 1013 Date of Service: 09/27/14 1012 Status: Signed Oil Rag Washer: Lisset Boss (Organizational Development Consultant) GPS enrolled, Pt would not like assistance scheduling, we will ask her again at time of fir st phone call. ender son, LAURA Potter - 09/26/2014 4:20 PM PDTFormatting of this note might be different fr om the original. Progress Notes by Nadia Lewis PA-C at 09/26/14 1620 Author: Nadia Lewis PA-C Service: Cardiology Author Type: Physician Bilingual Legal Assistant - Certified Filed: 09/29/14 1130 Date of Service: 09/26/14 1620 Status: Attested Oil Rag Washer: Nadia Lewis PA-C (Physician Bilingual Legal Assistant - Certified) Related Notes: Original Note by Nadia Lewis PA-C (Physician Bilingual Legal Assistant - Certified ) filed at 09/28/14 1637 Cosigner: Bryan Ceja MD at 09/29/14 1227 Attestation signed by Bryan Ceja MD at 09/29/14 1227 I saw and examined the patient with Nadia Lewis PA-C. I have reviewed the tests per formed. I agree with the assessment and plan as documented in the note. Bryan Ceja MD 09/29/2014 [facility] Service: Cardiology Progress Note Name of Plant Technician/Control Room Operator: Bryan Ceja MD I have seen the [...] anterior fasc icular block, normal P wave, MA interval. No significant T waves. ST-T segment consistent wi th ischemia, prolonged QT. September 24, 2014, at [facility] reviewed personally and showed atrial fibrillation [...] nding artery and mid left circumflex artery, [place] FFR for the right coronary artery and [...] Notes by Desiree Jean MD at 09/26/14 4538 Author: Desiree Jean MD Service: (none) Author Type: Physician Filed: 09/26/14 4283 Date of Service: 09/26/14 1618 Status: Signed Oil Rag Washer: Desiree Jean MD (Physician) [facility] Service: Hospitalist Progress Note Pt: Kimberlee [...] hours. No results for input(s): PHART, PO2ART, IPZ2WPA, Y3ZWRIAQ, BEART in the last 168 hours. Recent [...] recent event need recheck in 3-4 w [place] as out patient on anticoagulation lovenox with coumadin INR 1.1 today F/ up INR in am NSTEMI with acute sys CHF Had cardiac raisa on Non-ST elevation myocardial infarction with severe systolic dysfunction with ejection fraction 30% to 35%, and severe mitral valve regurgitation.. 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 YAQUELIN Review F/ up transmission and coordination engineer recommendation on ASA Statin lasix betablocker and [...] Author: MOLLY Rowley Service: (none) Author Type: Political Cartoonist Filed: 09/26/141217 Date of Service: 09/26/141216 Status: Signed Oil Rag Washer: MOLLY Rowley (Political Cartoonist) Pt is 78 years old and independent [...] 09/26/14834 Date of Service: 09/26/14832 Status: Signed Oil Rag Washer: Taylor Corona RN (Registered Nurse) YAQUELIN done. [...] 09/26/14650 Date of Service: 09/26/14521 Status: Addendum Oil Rag Washer: Patria Seals RN (Registered Nurse) Related Notes: Original Note by Patria Seals RN (Registered Nurse) filed at 09/26/14 053 2 0520. Pt converted to A-Fib, HR 100-140's. Pt asymptomatic. VSS. Dr. Rubin advised to mo nitor for 30 minutes to 1 hour to see if pt converts back to NS. Will consider digoxin if n ecessary. Will continue to monitor REBECA [place] 0616. Patient's HR is better controlled; A-Fib 80-90's. Pt is scheduled for a YAQUELIN at [address] Rubin advised to continue to monitor and transmission and coordination engineer to treat if necessary. REBECA [place] onver [place] Transaction, Provider Unknown - 09/25/2014 9:07 PM PDT Nurse Progress Note by Asuncion Carmona RN at 09/25/142106 Author: Asuncion Carmona RN Service: (none) Author Type: Registered Nurse Filed: 09/25/142107 Date of Service: 09/25/142106 Status: Signed Oil Rag Washer: Asuncion Carmona RN (Registered Nurse) 2044: Pt [...] 09/25/141712 Date of Service: 09/25/141657 Status: Addendum Oil Rag Washer: Sherrill Barnes MD (Physician) Related Notes: Original Note by Sherrill Barnes MD (Physician) filed at 09/25/141711 [facility] Service: Hospitalist Progress Note Hospital Day: [...] 37* >40 mg/dL Final Testing performed at [facility], [facility] [place] [address] Triglycerides Date Value Ref Range Status 09/25/2014 122 <150 mg/dL Final Testing performed at [facility], [facility] [place] [address] LDL CALC Date Value Ref Range Status 09/25/2014 60 <100 mg/dL Final Testing performed at [facility], [address] [place] [address] CHOLESTEROL Date Value Ref Range Status 09/25/2014 121 <200 mg/dL Final Testing performed at [facility], [address] [place] [address] Lab Results Component Value Date HGBA1C 6.3* [...] Date of Service: 09/25/14 1610 Status: Signed Oil Rag Washer: Sophie Maldonado RN (Registered Nurse) Pt off the floor to analytical laboratory technician for angiogram. Bilateral groin prepped. NPO since 104. Report given to REBECA Bhakta w/ analytical laboratory technician. onver [place] Transaction, Provider Unknown - 09/25/2014 1:12 PM PDT Progress Notes by Jayda Blue RD at 09/25/14 1312 Author: Jayda Blue RD Service: (none) Author Type: Registered Dietitian Filed: 09/25/14 1312 Date of Service: 09/25/14 1312 Status: Signed Oil Rag Washer: Jayda Blue RD (Registered Dietitian) 09/25/14 1256 [...] Estimated Energy Needs Total Energy Estimated Needs [id number] kcals Method for Estimating Needs 25-30 kcal/kg [...] 09/25/1448 Date of Service: 09/25/14543 Status: Signed Oil Rag Washer: Rosanne Tidwell RN (Registered Nurse) Pt was [...] 09/24/142038 Date of Service: 09/24/142038 Status: Signed Oil Rag Washer: Wayne Zhang RPH (Pharmacist) Note ccl 58.5ml/min meds reviewed Pharmacy will follow [facility] 2038 docume nted in this encounter Plan [...] + + | Historically converted [facility] from [facility] Epic environment | EXTERNAL LAB | + [...] | | | | | performed at [facility] | | | | | | [address];[place], [place] | | | | | | [address] | | | | + + + [...] EXTERNAL | | | | performed at [facility], [address] | K/uL | LAB | | | | [address], | | | | | | [place] [address] | | | | + + + + + + | Red Blood | 4.41Comment: Testing | 3.70 - 5.10 | EXTERNAL | | | Cells | performed at [facility], [address] | M/uL | LAB | | | Counted | [address], | | | | | | [place] [address] | | | | + + + + + + | Hemoglobin | 13.0Comment: Testing | 11.3 - 15.5 | EXTERNAL | | | | performed at [facility], [address] | g/dL | LAB | | | | [address], | | | | | | [place] [address] | | | | + + + + + + | Hematocrit, | 39.2Comment: Testing | 34.0 - 46.0 % | EXTERNAL | | | POC | performed at [facility], [address] | | LAB | | | | [address], | | | | | | [place] [address] | | | | + + + + + + | MCV | 89.0Comment: Testing | 80.0 - 100.0 fl | EXTERNAL | | | | performed at [facility], [address] | | LAB | | | | [address], | | | | | | [place] [address] | | | | + + + + + + | MCH | 29.5Comment: Testing | 27.0 - 34.0 pg | EXTERNAL | | | | performed at [facility], [address] | | LAB | | | | [address], | | | | | | [place] [address] | | | | + + + + + + | MCHC | 33.1Comment: Testing | 32.0 - 35.5 | EXTERNAL | | | | performed at [facility], [address] | g/dL | LAB | | | | [address], | | | | | | [place] [address] | | | | + + + + + + | RDW-CV | 45.5Comment: Testing | 37 - 53 fl | EXTERNAL | | | | performed at [facility], [address] | | LAB | | | | [address], | | | | | | [place] [address] | | | | + + + + + + | Platelet | 229Comment: Testing | 150 - 400 K/uL | EXTERNAL | | | Count | performed at [facility], [address] | | LAB | | | Plasma | [address], | | | | | | [place] [address] | | | | + + + + + + | MPV | 8.4Comment: Testing | fl | EXTERNAL | | | | performed at [facility], [address] | | LAB | | | | [address], | | | | | | [place] [address] | | | | + + + + + + | Differentia | AUTOMATEDComment: | | EXTERNAL | | | l Type | Testing performed at | | LAB | | | | [facility], [address] | | | | | | [place] | | | | | | [address] | | | | + + + + + + | % Segmented | 69.84Comment: Testing | % | EXTERNAL | | | | performed at [facility], [address] | | LAB | | | Neutrophils | [address], | | | | | | [place] [address] | | | | + + + + + + | % | 17.71Comment: Testing | % | EXTERNAL | | | Lymphocytes | performed at [facility], [address] | | LAB | | | | [address], | | | | | | [place] [address] | | | | + + + + + + | % Monocytes | 7.47Comment: Testing | % | EXTERNAL | | | | performed at [facility], [address] | | LAB | | | | [address], | | | | | | [place] [address] | | | | + + + + + + | % | 4.22Comment: Testing | % | EXTERNAL | | | Eosinophils | performed at [facility], [address] | | LAB | | | | [address], | | | | | | [place] [address] | | | | + + + + + + | % Basophils | 0.76Comment: Testing | % | EXTERNAL | | | | performed at [facility], [address] | | LAB | | | | [address], | | | | | | [place] [address] | | | | + + + + + + | Absolute | 5.55Comment: Testing | 1.90 - 7.40 | EXTERNAL | | | Segmented | performed at [facility], [address] | K/uL | LAB | | | Neutrophils | [address], | | | | | | [place] [address] | | | | + + + + + + | Absolute | 1.41Comment: Testing | 1.00 - 3.90 | EXTERNAL | | | Lymphocytes | performed at [facility], [address] | K/uL | LAB | | | | [address], | | | | | | [place] [address] | | | | + + + + + + | Absolute | 0.59Comment: Testing | 0.00 - 0.80 | EXTERNAL | | | Monocytes | performed at [facility], [address] | K/uL | LAB | | | | [address], | | | | | | [place] [address] | | | | + + + + + + | Absolute | 0.34Comment: Testing | 0.00 - 0.50 | EXTERNAL | | | Eosinophils | performed at [facility], [address] | K/uL | LAB | | | | [address], | | | | | | [place] [address] | | | | + + + + + + | Absolute | 0.06Comment: Testing | 0.00 - 0.10 | EXTERNAL | | | Basophils | performed at [facility], [address] | K/uL | LAB | | | | [address], | | | | | | [place] [address] | | | | + + + [...] | | | | | [place] [address] | | | | + + + + + + | K | 3.7Comment: Testing | 3.5 - 4.9 | EXTERNAL | | | | performed at [facility], [address] | mmol/L | LAB | | | | [address], | | | | | | [place] [address] | | | | + + + + + + | Cl | 107Comment: Testing | 99 - 109 mmol/L | EXTERNAL | | | | performed at [facility], [address] | | LAB | | | | [address], | | | | | | [place] [address] | | | | + + + + + + | CO2 | 29Comment: Testing | 23 - 32 mmol/L | EXTERNAL | | | | performed at [facility], [address] | | LAB | | | | [address], | | | | | | [place] [address] | | | | + + + + + + | Anion Gap | 3 (L)Comment: Testing | 5 - 20 mmol/L | EXTERNAL | | | | performed at [facility], [address] | | LAB | | | | [address], | | | | | | [place] [address] | | | | + + + + + + | Glucose, | 96Comment: Testing | 65 - 99 mg/dL | EXTERNAL | | | Fasting | performed at [facility], [address] | | LAB | | | | [address], | | | | | | [place] [address] | | | | + + + + + + | BUN | 13Comment: Testing | 8 - 25 mg/dL | EXTERNAL | | | | performed at [facility], [address] | | LAB | | | | [address], | | | | | | [place] [address] | | | | + + + + + + | Creatinine | 0.77Comment: Testing | 0.50 - 1.00 | EXTERNAL | | | | performed at [facility], [address] | mg/dL | LAB | | | | [address], | | | | | | [place] [address] | | | | + + + + + + | BUN/Creatin | 17Comment: Testing | | EXTERNAL | | | ine Ratio | performed at [facility], [address] | | LAB | | | | [address], | | | | | | [place] [address] | | | | + + + + + + | Calcium | 9.4Comment: Testing | 8.5 - 10.5 | EXTERNAL | | | | performed at [facility], [address] | mg/dL | LAB | | | | [address] [facility], | | | | | | [place] [address] | | | | + + + [...] | | | | | | [address] [facility], | | | | | | [place] [address] | | | | + + + [...] + + | Historically converted procedure from [facility] | EXTERNAL LAB | + + [...] | | left radial artery cannulized with 6-Slovenian Slender sheath, 2.5 mg | | | verapamil, 200 mcg nitroglycerin, and 5000 international units | | | heparin given through the sheath. Over a 260 exchange wire a | | | 6-Slovenian XB3.5 guide advanced to the ascending aorta, [...] left radial artery | | cannulized with 6-Slovenian Slender sheath, 2.5 mg verapamil, 200 mcg | | nitroglycerin, and 5000 international units heparin given through the | | sheath. | | | | Over a 260 exchange wire a 6-Slovenian XB3.5 guide advanced to the ascending | [...] AICD. | | | | Read by BRYNA CEJA MD 09/30/2014 09:06 A | | [...] | | | Clotting | performed at [facility];888 | seconds | LAB | | | time, POC | [address];[place], [place] | | | | | | [address] | | | | + + + [...] | | | | | performed at [facility] | | | | | | [facility];[place], [place] | | | | | | [address] | | | | + + + [...] | | | | | [place] [address] | | | | + + + + + + | Red Blood | 4.43Comment: Testing | 3.70 - 5.10 | EXTERNAL | | | Cells | performed at [facility], [address] | M/uL | LAB | | | Counted | [address], | | | | | | [place] [address] | | | | + + + + + + | Hemoglobin | 13.1Comment: Testing | 11.3 - 15.5 | EXTERNAL | | | | performed at [facility], [address] | g/dL | LAB | | | | [address], | | | | | | [place] [address] | | | | + + + + + + | Hematocrit, | 39.8Comment: Testing | 34.0 - 46.0 % | EXTERNAL | | | POC | performed at [facility], [address] | | LAB | | | | [address], | | | | | | [place] [address] | | | | + + + + + + | MCV | 89.7Comment: Testing | 80.0 - 100.0 fl | EXTERNAL | | | | performed at [facility], [address] | | LAB | | | | [address], | | | | | | [place] [address] | | | | + + + + + + | MCH | 29.6Comment: Testing | 27.0 - 34.0 pg | EXTERNAL | | | | performed at [facility], [address] | | LAB | | | | [address], | | | | | | [place] [address] | | | | + + + + + + | MCHC | 33.0Comment: Testing | 32.0 - 35.5 | EXTERNAL | | | | performed at [facility], [address] | g/dL | LAB | | | | [address], | | | | | | [place] [address] | | | | + + + + + + | RDW-CV | 45.9Comment: Testing | 37 - 53 fl | EXTERNAL | | | | performed at [facility], [address] | | LAB | | | | [address], | | | | | | [place] [address] | | | | + + + + + + | Platelet | 231Comment: Testing | 150 - 400 K/uL | EXTERNAL | | | Count | performed at [facility], [address] | | LAB | | | Plasma | [address], | | | | | | [place] [address] | | | | + + + + + + | MPV | 8.3Comment: Testing | fl | EXTERNAL | | | | performed at [facility], [address] | | LAB | | | | [address], | | | | | | [place] [address] | | | | + + + + + + | Differentia | AUTOMATEDComment: | | EXTERNAL | | | l Type | Testing performed at | | LAB | | | | [facility], [address] | | | | | | [place] | | | | | | [address] | | | | + + + + + + | % Segmented | 72.81Comment: Testing | % | EXTERNAL | | | | performed at [facility], [address] | | LAB | | | Neutrophils | [address], | | | | | | [place] [address] | | | | + + + + + + | % | 14.65Comment: Testing | % | EXTERNAL | | | Lymphocytes | performed at [facility], [address] | | LAB | | | | [address], | | | | | | [place] [address] | | | | + + + + + + | % Monocytes | 8.33Comment: Testing | % | EXTERNAL | | | | performed at [facility], [address] | | LAB | | | | [address], | | | | | | [place] [address] | | | | + + + + + + | % | 3.54Comment: Testing | % | EXTERNAL | | | Eosinophils | performed at [facility], [address] | | LAB | | | | [address], | | | | | | [place] [address] | | | | + + + + + + | % Basophils | 0.67Comment: Testing | % | EXTERNAL | | | | performed at [facility], [address] | | LAB | | | | [address], | | | | | | [place] [address] | | | | + + + + + + | Absolute | 5.28Comment: Testing | 1.90 - 7.40 | EXTERNAL | | | Segmented | performed at [facility], [address] | K/uL | LAB | | | Neutrophils | [address], | | | | | | [place] [address] | | | | + + + + + + | Absolute | 1.06Comment: Testing | 1.00 - 3.90 | EXTERNAL | | | Lymphocytes | performed at [facility], [address] | K/uL | LAB | | | | [address], | | | | | | [place] [address] | | | | + + + + + + | Absolute | 0.60Comment: Testing | 0.00 - 0.80 | EXTERNAL | | | Monocytes | performed at [facility], [address] | K/uL | LAB | | | | [address], | | | | | | [place] [address] | | | | + + + + + + | Absolute | 0.26Comment: Testing | 0.00 - 0.50 | EXTERNAL | | | Eosinophils | performed at [facility], [address] | K/uL | LAB | | | | [address], | | | | | | [place] [address] | | | | + + + + + + | Absolute | 0.05Comment: Testing | 0.00 - 0.10 | EXTERNAL | | | Basophils | performed at [facility], [address] | K/uL | LAB | | | | [address], | | | | | | [place] [address] | | | | + + + [...] | | | | | [place] [address] | | | | + + + + + + | K | 3.3 (L)Comment: Testing | 3.5 - 4.9 | EXTERNAL | | | | performed at [facility], [address] | mmol/L | LAB | | | | [address], | | | | | | [place] [address] | | | | + + + + + + | Cl | 105Comment: Testing | 99 - 109 mmol/L | EXTERNAL | | | | performed at [facility], [address] | | LAB | | | | [address], | | | | | | [place] [address] | | | | + + + + + + | CO2 | 26Comment: Testing | 23 - 32 mmol/L | EXTERNAL | | | | performed at [facility], [address] | | LAB | | | | [address], | | | | | | [place] [address] | | | | + + + + + + | Anion Gap | 10Comment: Testing | 5 - 20 mmol/L | EXTERNAL | | | | performed at [facility], [address] | | LAB | | | | [address], | | | | | | [place] [address] | | | | + + + + + + | Glucose, | 120 (H)Comment: Testing | 65 - 99 mg/dL | EXTERNAL | | | Fasting | performed at [facility], [address] | | LAB | | | | [address], | | | | | | [place] [address] | | | | + + + + + + | BUN | 16Comment: Testing | 8 - 25 mg/dL | EXTERNAL | | | | performed at [facility], [address] | | LAB | | | | [address], | | | | | | [place] [address] | | | | + + + + + + | Creatinine | 0.92Comment: Testing | 0.50 - 1.00 | EXTERNAL | | | | performed at [facility], [address] | mg/dL | LAB | | | | [address], | | | | | | [place] [address] | | | | + + + + + + | BUN/Creatin | 17Comment: Testing | | EXTERNAL | | | ine Ratio | performed at [facility], [address] | | LAB | | | | [address], | | | | | | [place] [address] | | | | + + + + + + | Calcium | 9.2Comment: Testing | 8.5 - 10.5 | EXTERNAL | | | | performed at [facility], [address] | mg/dL | LAB | | | | [address], | | | | | | [place] [address] | | | | + + + [...] [place], | | | | | | [place] [address] | | | | + + + [...] | | | | | performed at [facility] | | | | | | [facility];[place], [place] | | | | | | [address] | | | | + + + [...] EXTERNAL | | | | performed at [facility], [address] | K/uL | LAB | | | | [address], | | | | | | [place] [address] | | | | + + + + + + | Red Blood | 4.46Comment: Testing | 3.70 - 5.10 | EXTERNAL | | | Cells | performed at [facility], [address] | M/uL | LAB | | | Counted | [address], | | | | | | [place] [address] | | | | + + + + + + | Hemoglobin | 13.2Comment: Testing | 11.3 - 15.5 | EXTERNAL | | | | performed at [facility], [address] | g/dL | LAB | | | | [address], | | | | | | [place] [address] | | | | + + + + + + | Hematocrit, | 39.8Comment: Testing | 34.0 - 46.0 % | EXTERNAL | | | POC | performed at [facility], [address] | | LAB | | | | [address], | | | | | | [place] [address] | | | | + + + + + + | MCV | 89.4Comment: Testing | 80.0 - 100.0 fl | EXTERNAL | | | | performed at [facility], [address] | | LAB | | | | [address], | | | | | | [place] [address] | | | | + + + + + + | MCH | 29.7Comment: Testing | 27.0 - 34.0 pg | EXTERNAL | | | | performed at [facility], [address] | | LAB | | | | [address], | | | | | | [place] [address] | | | | + + + + + + | MCHC | 33.2Comment: Testing | 32.0 - 35.5 | EXTERNAL | | | | performed at [facility], [address] | g/dL | LAB | | | | [address], | | | | | | [place] [address] | | | | + + + + + + | RDW-CV | 46.4Comment: Testing | 37 - 53 fl | EXTERNAL | | | | performed at [facility], [address] | | LAB | | | | [address], | | | | | | [place] [address] | | | | + + + + + + | Platelet | 225Comment: Testing | 150 - 400 K/uL | EXTERNAL | | | Count | performed at [facility], [address] | | LAB | | | Plasma | [address], | | | | | | [place] [address] | | | | + + + + + + | MPV | 8.3Comment: Testing | fl | EXTERNAL | | | | performed at [facility], [address] | | LAB | | | | [address], | | | | | | [place] [address] | | | | + + + + + + | Differentia | AUTOMATEDComment: | | EXTERNAL | | | l Type | Testing performed at | | LAB | | | | [facility], [address] | | | | | | [place] | | | | | | [address] | | | | + + + + + + | % Segmented | 76.31Comment: Testing | % | EXTERNAL | | | | performed at [facility], [address] | | LAB | | | Neutrophils | [address], | | | | | | [place] [address] | | | | + + + + + + | % | 12.61Comment: Testing | % | EXTERNAL | | | Lymphocytes | performed at [facility], [address] | | LAB | | | | [address], | | | | | | [place] [address] | | | | + + + + + + | % Monocytes | 6.78Comment: Testing | % | EXTERNAL | | | | performed at [facility], [address] | | LAB | | | | [address], | | | | | | [place] [address] | | | | + + + + + + | % | 3.71Comment: Testing | % | EXTERNAL | | | Eosinophils | performed at [facility], [address] | | LAB | | | | [address], | | | | | | [place] [address] | | | | + + + + + + | % Basophils | 0.59Comment: Testing | % | EXTERNAL | | | | performed at [facility], [address] | | LAB | | | | [address], | | | | | | [place] [address] | | | | + + + + + + | Absolute | 6.27Comment: Testing | 1.90 - 7.40 | EXTERNAL | | | Segmented | performed at [facility], [address] | K/uL | LAB | | | Neutrophils | [address], | | | | | | [place] [address] | | | | + + + + + + | Absolute | 1.04Comment: Testing | 1.00 - 3.90 | EXTERNAL | | | Lymphocytes | performed at [facility], [address] | K/uL | LAB | | | | [address], | | | | | | [place] [address] | | | | + + + + + + | Absolute | 0.56Comment: Testing | 0.00 - 0.80 | EXTERNAL | | | Monocytes | performed at [facility], [address] | K/uL | LAB | | | | [address], | | | | | | [place] [address] | | | | + + + + + + | Absolute | 0.31Comment: Testing | 0.00 - 0.50 | EXTERNAL | | | Eosinophils | performed at [facility], [address] | K/uL | LAB | | | | [address], | | | | | | [place] [address] | | | | + + + + + + | Absolute | 0.05Comment: Testing | 0.00 - 0.10 | EXTERNAL | | | Basophils | performed at [facility], [address] | K/uL | LAB | | | | [address], | | | | | | [place] [address] | | | | + + + [...] | | | | | [place] [address] | | | | + + + + + + | K | 3.6Comment: Testing | 3.5 - 4.9 | EXTERNAL | | | | performed at [facility], [address] | mmol/L | LAB | | | | [address], | | | | | | [place] [address] | | | | + + + + + + | Cl | 105Comment: Testing | 99 - 109 mmol/L | EXTERNAL | | | | performed at [facility], [address] | | LAB | | | | [address], | | | | | | [place] [address] | | | | + + + + + + | CO2 | 25Comment: Testing | 23 - 32 mmol/L | EXTERNAL | | | | performed at [facility], [address] | | LAB | | | | [address], | | | | | | [place] [address] | | | | + + + + + + | Anion Gap | 11Comment: Testing | 5 - 20 mmol/L | EXTERNAL | | | | performed at [facility], [address] | | LAB | | | | [address], | | | | | | [place] [address] | | | | + + + + + + | Glucose, | 90Comment: Testing | 65 - 99 mg/dL | EXTERNAL | | | Fasting | performed at [facility], [address] | | LAB | | | | [address], | | | | | | [place] [address] | | | | + + + + + + | BUN | 11Comment: Testing | 8 - 25 mg/dL | EXTERNAL | | | | performed at [facility], [address] | | LAB | | | | [address], | | | | | | [place] [address] | | | | + + + + + + | Creatinine | 0.75Comment: Testing | 0.50 - 1.00 | EXTERNAL | | | | performed at [facility], [address] | mg/dL | LAB | | | | [address], | | | | | | [place] [address] | | | | + + + + + + | BUN/Creatin | 15Comment: Testing | | EXTERNAL | | | ine Ratio | performed at [facility], [address] | | LAB | | | | [address], | | | | | | [place] [address] | | | | + + + + + + | Calcium | 9.0Comment: Testing | 8.5 - 10.5 | EXTERNAL | | | | performed at [facility], [address] | mg/dL | LAB | | | | [address], | | | | | | [place] [address] | | | | + + + [...] | | | | | | at [facility], [address] | | | | | | [address], | | | | | | [place] [address] | | | | + + + [...] | | | | | performed at [facility];[address] | | | | | | [address];[place] | | | | | | [address] | | | | + + + [...] | | | | | | [place] [address] | | | | + + + + + + | Red Blood | 4.36Comment: Testing | 3.70 - 5.10 | EXTERNAL | | | Cells | performed at [facility], [address] | M/uL | LAB | | | Counted | [address], | | | | | | [place] [address] | | | | + + + + + + | Hemoglobin | 12.9Comment: Testing | 11.3 - 15.5 | EXTERNAL | | | | performed at [facility], [address] | g/dL | LAB | | | | [address], | | | | | | [place] [address] | | | | + + + + + + | Hematocrit, | 39.0Comment: Testing | 34.0 - 46.0 % | EXTERNAL | | | POC | performed at [facility], [address] | | LAB | | | | [address], | | | | | | [place] [address] | | | | + + + + + + | MCV | 89.5Comment: Testing | 80.0 - 100.0 fl | EXTERNAL | | | | performed at [facility], [address] | | LAB | | | | [address], | | | | | | [place] [address] | | | | + + + + + + | MCH | 29.6Comment: Testing | 27.0 - 34.0 pg | EXTERNAL | | | | performed at [facility], [address] | | LAB | | | | [address], | | | | | | [place] [address] | | | | + + + + + + | MCHC | 33.0Comment: Testing | 32.0 - 35.5 | EXTERNAL | | | | performed at [facility], [address] | g/dL | LAB | | | | [address], | | | | | | [place], [place] [address] | | | | + + + + + + | RDW-CV | 45.1Comment: Testing | 37 - 53 fl | EXTERNAL | | | | performed at [facility], [address] | | LAB | | | | [address], | | | | | | [place], [place] [address] | | | | + + + + + + | Platelet | 203Comment: Testing | 150 - 400 K/uL | EXTERNAL | | | Count | performed at [facility], [address] | | LAB | | | Plasma | [address], | | | | | | [place], [place] [address] | | | | + + + + + + | MPV | 8.5Comment: Testing | fl | EXTERNAL | | | | performed at [facility], [address] | | LAB | | | | [address], | | | | | | [place] [address] | | | | + + + + + + | Differentia | AUTOMATEDComment: | | EXTERNAL | | | l Type | Testing performed at | | LAB | | | | [facility], [address] | | | | | | [place] | | | | | | [address] | | | | + + + + + + | % Segmented | 68.25Comment: Testing | % | EXTERNAL | | | | performed at [facility], [address] | | LAB | | | Neutrophils | [address], | | | | | | [place] [address] | | | | + + + + + + | % | 19.10Comment: Testing | % | EXTERNAL | | | Lymphocytes | performed at [facility], [address] | | LAB | | | | [address], | | | | | | [place] [address] | | | | + + + + + + | % Monocytes | 7.31Comment: Testing | % | EXTERNAL | | | | performed at [facility], [address] | | LAB | | | | [address], | | | | | | [place] [address] | | | | + + + + + + | % | 4.67Comment: Testing | % | EXTERNAL | | | Eosinophils | performed at [facility], [address] | | LAB | | | | [address], | | | | | | [place] [address] | | | | + + + + + + | % Basophils | 0.67Comment: Testing | % | EXTERNAL | | | | performed at [facility], [address] | | LAB | | | | [address], | | | | | | [place] [address] | | | | + + + + + + | Absolute | 5.09Comment: Testing | 1.90 - 7.40 | EXTERNAL | | | Segmented | performed at [facility], [address] | K/uL | LAB | | | Neutrophils | [address], | | | | | | [place] [address] | | | | + + + + + + | Absolute | 1.42Comment: Testing | 1.00 - 3.90 | EXTERNAL | | | Lymphocytes | performed at [facility], [address] | K/uL | LAB | | | | [address], | | | | | | [place] [address] | | | | + + + + + + | Absolute | 0.55Comment: Testing | 0.00 - 0.80 | EXTERNAL | | | Monocytes | performed at [facility], [address] | K/uL | LAB | | | | [address], | | | | | | [place] [address] | | | | + + + + + + | Absolute | 0.35Comment: Testing | 0.00 - 0.50 | EXTERNAL | | | Eosinophils | performed at [facility], [address] | K/uL | LAB | | | | [address], | | | | | | [place] [address] | | | | + + + + + + | Absolute | 0.05Comment: Testing | 0.00 - 0.10 | EXTERNAL | | | Basophils | performed at [facility], [address] | K/uL | LAB | | | | [address], | | | | | | [place] [address] | | | | + + + [...] | | | | | [place] [address] | | | | + + + + + + | K | 3.6Comment: Testing | 3.5 - 4.9 | EXTERNAL | | | | performed at [facility], [address] | mmol/L | LAB | | | | [address], | | | | | | [place] [address] | | | | + + + + + + | Cl | 105Comment: Testing | 99 - 109 mmol/L | EXTERNAL | | | | performed at [facility], [address] | | LAB | | | | [address], | | | | | | [place] [address] | | | | + + + + + + | CO2 | 25Comment: Testing | 23 - 32 mmol/L | EXTERNAL | | | | performed at [facility], [address] | | LAB | | | | [address], | | | | | | [place] [address] | | | | + + + + + + | Anion Gap | 10Comment: Testing | 5 - 20 mmol/L | EXTERNAL | | | | performed at [facility], [address] | | LAB | | | | [address], | | | | | | [place] [address] | | | | + + + + + + | Glucose, | 135 (H)Comment: Testing | 65 - 99 mg/dL | EXTERNAL | | | Fasting | performed at [facility], [address] | | LAB | | | | [address], | | | | | | [place] [address] | | | | + + + + + + | BUN | 11Comment: Testing | 8 - 25 mg/dL | EXTERNAL | | | | performed at [facility], [address] | | LAB | | | | [address], | | | | | | [place] [address] | | | | + + + + + + | Creatinine | 0.77Comment: Testing | 0.50 - 1.00 | EXTERNAL | | | | performed at [facility], [address] | mg/dL | LAB | | | | [address], | | | | | | [place] [address] | | | | + + + + + + | BUN/Creatin | 14Comment: Testing | | EXTERNAL | | | ine Ratio | performed at [facility], [address] | | LAB | | | | [address], | | | | | | [place] [address] | | | | + + + + + + | Calcium | 9.0Comment: Testing | 8.5 - 10.5 | EXTERNAL | | | | performed at [facility], [address] | mg/dL | LAB | | | | [facility], | | | | | | [place] [address] | | | | + + + [...] | | | | | | at [facility], [address] | | | | | | [facility], | | | | | | [place] [address] | | | | + + + [...] | | | | | performed at [facility];[address] | | | | | | [address] [facility];[place], [place] | | | | | | [address] | | | | + + + [...] EXTERNAL | | | | performed at [facility], [address] | K/uL | LAB | | | | [address], | | | | | | [place] [address] | | | | + + + + + + | Red Blood | 4.42Comment: Testing | 3.70 - 5.10 | EXTERNAL | | | Cells | performed at [facility], [address] | M/uL | LAB | | | Counted | [address], | | | | | | [place] [address] | | | | + + + + + + | Hemoglobin | 13.1Comment: Testing | 11.3 - 15.5 | EXTERNAL | | | | performed at [facility], [address] | g/dL | LAB | | | | [address], | | | | | | [place] [address] | | | | + + + + + + | Hematocrit, | 39.3Comment: Testing | 34.0 - 46.0 % | EXTERNAL | | | POC | performed at [facility], [address] | | LAB | | | | [address], | | | | | | [place] [address] | | | | + + + + + + | MCV | 88.9Comment: Testing | 80.0 - 100.0 fl | EXTERNAL | | | | performed at [facility], [address] | | LAB | | | | [address], | | | | | | [place] [address] | | | | + + + + + + | MCH | 29.7Comment: Testing | 27.0 - 34.0 pg | EXTERNAL | | | | performed at [facility], [address] | | LAB | | | | [address], | | | | | | [place] [address] | | | | + + + + + + | MCHC | 33.4Comment: Testing | 32.0 - 35.5 | EXTERNAL | | | | performed at [facility], [address] | g/dL | LAB | | | | [address], | | | | | | [place] [address] | | | | + + + + + + | RDW-CV | 46.4Comment: Testing | 37 - 53 fl | EXTERNAL | | | | performed at [facility], [address] | | LAB | | | | [address], | | | | | | [place] [address] | | | | + + + + + + | Platelet | 216Comment: Testing | 150 - 400 K/uL | EXTERNAL | | | Count | performed at [facility], [address] | | LAB | | | Plasma | [address], | | | | | | [place] [address] | | | | + + + + + + | MPV | 8.1Comment: Testing | fl | EXTERNAL | | | | performed at [facility], [address] | | LAB | | | | [address], | | | | | | [place] [address] | | | | + + + + + + | Differentia | AUTOMATEDComment: | | EXTERNAL | | | l Type | Testing performed at | | LAB | | | | [facility], [address] | | | | | | [place] | | | | | | [address] | | | | + + + + + + | % Segmented | 67.07Comment: Testing | % | EXTERNAL | | | | performed at [facility], [address] | | LAB | | | Neutrophils | [address], | | | | | | [place] [address] | | | | + + + + + + | % | 20.82Comment: Testing | % | EXTERNAL | | | Lymphocytes | performed at [facility], [address] | | LAB | | | | [address], | | | | | | [place] [address] | | | | + + + + + + | % Monocytes | 5.74Comment: Testing | % | EXTERNAL | | | | performed at [facility], [address] | | LAB | | | | [address], | | | | | | [place] [address] | | | | + + + + + + | % | 5.45Comment: Testing | % | EXTERNAL | | | Eosinophils | performed at [facility], [address] | | LAB | | | | [address], | | | | | | [place] [address] | | | | + + + + + + | % Basophils | 0.92Comment: Testing | % | EXTERNAL | | | | performed at [facility], [address] | | LAB | | | | [address], | | | | | | [place] [address] | | | | + + + + + + | Absolute | 5.64Comment: Testing | 1.90 - 7.40 | EXTERNAL | | | Segmented | performed at [facility], [address] | K/uL | LAB | | | Neutrophils | [address], | | | | | | [place] [address] | | | | + + + + + + | Absolute | 1.75Comment: Testing | 1.00 - 3.90 | EXTERNAL | | | Lymphocytes | performed at [facility], [address] | K/uL | LAB | | | | [address], | | | | | | [place] [address] | | | | + + + + + + | Absolute | 0.48Comment: Testing | 0.00 - 0.80 | EXTERNAL | | | Monocytes | performed at [facility], [address] | K/uL | LAB | | | | [address], | | | | | | [place] [address] | | | | + + + + + + | Absolute | 0.46Comment: Testing | 0.00 - 0.50 | EXTERNAL | | | Eosinophils | performed at [facility], [address] | K/uL | LAB | | | | [address], | | | | | | [place] [address] | | | | + + + + + + | Absolute | 0.08Comment: Testing | 0.00 - 0.10 | EXTERNAL | | | Basophils | performed at [facility], [address] | K/uL | LAB | | | | [address], | | | | | | [place] [address] | | | | + + + [...] | | | | | [place] [address] | | | | + + + + + + | K | 3.4 (L)Comment: Testing | 3.5 - 4.9 | EXTERNAL | | | | performed at [facility], [address] | mmol/L | LAB | | | | [address], | | | | | | [place] [address] | | | | + + + + + + | Cl | 106Comment: Testing | 99 - 109 mmol/L | EXTERNAL | | | | performed at [facility], [address] | | LAB | | | | [address], | | | | | | [place] [address] | | | | + + + + + + | CO2 | 25Comment: Testing | 23 - 32 mmol/L | EXTERNAL | | | | performed at [facility], [address] | | LAB | | | | [address], | | | | | | [place] [address] | | | | + + + + + + | Anion Gap | 10Comment: Testing | 5 - 20 mmol/L | EXTERNAL | | | | performed at [facility], [address] | | LAB | | | | [address], | | | | | | [place] [address] | | | | + + + + + + | Glucose, | 107 (H)Comment: Testing | 65 - 99 mg/dL | EXTERNAL | | | Fasting | performed at [facility], [address] | | LAB | | | | [address], | | | | | | [place] [address] | | | | + + + + + + | BUN | 10Comment: Testing | 8 - 25 mg/dL | EXTERNAL | | | | performed at [facility], [address] | | LAB | | | | [address], | | | | | | [place] [address] | | | | + + + + + + | Creatinine | 0.77Comment: Testing | 0.50 - 1.00 | EXTERNAL | | | | performed at [facility], [address] | mg/dL | LAB | | | | [address], | | | | | | [place] [address] | | | | + + + + + + | BUN/Creatin | 13Comment: Testing | | EXTERNAL | | | ine Ratio | performed at [facility], [address] | | LAB | | | | [address], | | | | | | [place] [address] | | | | + + + + + + | Calcium | 9.0Comment: Testing | 8.5 - 10.5 | EXTERNAL | | | | performed at [facility], [address] | mg/dL | LAB | | | | [address], | | | | | | [place] [address] | | | | + + + + + + | Protein, | 6.1 (L)Comment: Testing | 6.3 - 8.2 g/dL | EXTERNAL | | | Total | performed at [facility], [address] | | LAB | | | | [address], | | | | | | [place] [address] | | | | + + + + + + | Albumin | 3.6Comment: Testing | 3.3 - 4.8 g/dL | EXTERNAL | | | | performed at [facility], [address] | | LAB | | | | [address], | | | | | | [place] [address] | | | | + + + + + + | Globulin | 2.5Comment: Testing | 1.3 - 4.9 g/dL | EXTERNAL | | | | performed at [facility], [address] | | LAB | | | | [address], | | | | | | [place] [address] | | | | + + + + + + | A/G Ratio | 1.4Comment: Testing | 1.0 - 2.4 | EXTERNAL | | | | performed at [facility], [address] | | LAB | | | | [address], | | | | | | [place] [address] | | | | + + + + + + | Bilirubin | 0.9Comment: Testing | 0.1 - 1.5 mg/dL | EXTERNAL | | | Total | performed at [facility], [address] | | LAB | | | | [address], | | | | | | [place] [address] | | | | + + + + + + | ALP, | 72Comment: Testing | 35 - 115 U/L | EXTERNAL | | | External | performed at [facility], [address] | | LAB | | | | [address], | | | | | | [place] [address] | | | | + + + + + + | AST | 22Comment: Testing | 10 - 45 U/L | EXTERNAL | | | | performed at [facility], [address] | | LAB | | | | [address], | | | | | | [place] [address] | | | | + + + + + + | ALT | 17Comment: Testing | 10 - 65 U/L | EXTERNAL | | | | performed at [facility], [address] | | LAB | | | | [address] [facility], | | | | | | [place] [address] | | | | + + + [...] | | | | | | at [facility], [address] | | | | | | [address] [facility], | | | | | | [place] [address] | | | | + + + [...] TR maxP.12 mmHg TR Vmax: 3.12 m/s Technology Applications Teacher: | | | KE Authenticated by: Bryan [...] 44.12 mmHgTR maxP.12 mmHgTR Vmax: 3.12 m/s Technology Applications Teacher: Nikated by: | | [place] [employer] MDReport [...] |TR Vmax: 3.12 m/s | | | |Technology Applications Teacher: ANGEL | |Authenticated by: Bryan Ceja MD [...] + + | Historically converted procedure from [facility] Epic environment | EXTERNAL LAB | + [...] | | | | | performed at [facility];[address] | | | | | | [facility];[place], [place] | | | | | | [address] | | | | + + + [...] | | | | | [place] [address] | | | | + + + + + + | Red Blood | 4.56Comment: Testing | 3.70 - 5.10 | EXTERNAL | | | Cells | performed at [facility], [address] | M/uL | LAB | | | Counted | [address], | | | | | | [place] [address] | | | | + + + + + + | Hemoglobin | 13.5Comment: Testing | 11.3 - 15.5 | EXTERNAL | | | | performed at [facility], [address] | g/dL | LAB | | | | [address], | | | | | | [place] [address] | | | | + + + + + + | Hematocrit, | 40.5Comment: Testing | 34.0 - 46.0 % | EXTERNAL | | | POC | performed at [facility], [address] | | LAB | | | | [address], | | | | | | [place] [address] | | | | + + + + + + | MCV | 88.8Comment: Testing | 80.0 - 100.0 fl | EXTERNAL | | | | performed at [facility], [address] | | LAB | | | | [address], | | | | | | [place] [address] | | | | + + + + + + | MCH | 29.7Comment: Testing | 27.0 - 34.0 pg | EXTERNAL | | | | performed at [facility], [address] | | LAB | | | | [address], | | | | | | [place] [address] | | | | + + + + + + | MCHC | 33.4Comment: Testing | 32.0 - 35.5 | EXTERNAL | | | | performed at [facility], [address] | g/dL | LAB | | | | [address], | | | | | | [place] [address] | | | | + + + + + + | RDW-CV | 44.6Comment: Testing | 37 - 53 fl | EXTERNAL | | | | performed at [facility], [address] | | LAB | | | | [address], | | | | | | [place] [address] | | | | + + + + + + | Platelet | 215Comment: Testing | 150 - 400 K/uL | EXTERNAL | | | Count | performed at [facility], [address] | | LAB | | | Plasma | [address], | | | | | | [place] [address] | | | | + + + + + + | MPV | 8.4Comment: Testing | fl | EXTERNAL | | | | performed at [facility], [address] | | LAB | | | | [address], | | | | | | [place] [address] | | | | + + + + + + | Differentia | AUTOMATEDComment: | | EXTERNAL | | | l Type | Testing performed at | | LAB | | | | [facility], [address] | | | | | | [place] | | | | | | [address] | | | | + + + + + + | % Segmented | 69.91Comment: Testing | % | EXTERNAL | | | | performed at [facility], [address] | | LAB | | | Neutrophils | [address], | | | | | | [place] [address] | | | | + + + + + + | % | 20.30Comment: Testing | % | EXTERNAL | | | Lymphocytes | performed at [facility], [address] | | LAB | | | | [address], | | | | | | [place] [address] | | | | + + + + + + | % Monocytes | 6.60Comment: Testing | % | EXTERNAL | | | | performed at [facility], [address] | | LAB | | | | [address], | | | | | | [place] [address] | | | | + + + + + + | % | 2.36Comment: Testing | % | EXTERNAL | | | Eosinophils | performed at [facility], [address] | | LAB | | | | [address], | | | | | | [place] [address] | | | | + + + + + + | % Basophils | 0.83Comment: Testing | % | EXTERNAL | | | | performed at [facility], [address] | | LAB | | | | [address], | | | | | | [place] [address] | | | | + + + + + + | Absolute | 5.45Comment: Testing | 1.90 - 7.40 | EXTERNAL | | | Segmented | performed at [facility], [address] | K/uL | LAB | | | Neutrophils | [address], | | | | | | [place] [address] | | | | + + + + + + | Absolute | 1.58Comment: Testing | 1.00 - 3.90 | EXTERNAL | | | Lymphocytes | performed at [facility], [address] | K/[address] | LAB | | | | [address], | | | | | | [place] [address] | | | | + + + + + + | Absolute | 0.52Comment: Testing | 0.00 - 0.80 | EXTERNAL | | | Monocytes | performed at [facility], [address] | K/[address] | LAB | | | | [address], | | | | | | [place] [address] | | | | + + + + + + | Absolute | 0.18Comment: Testing | 0.00 - 0.50 | EXTERNAL | | | Eosinophils | performed at [facility], [address] | K/[address] | LAB | | | | [address], | | | | | | [place] [address] | | | | + + + + + + | Absolute | 0.07Comment: Testing | 0.00 - 0.10 | EXTERNAL | | | Basophils | performed at [facility], [address] | K/[address] | LAB | | | | [address], | | | | | | [place] [address] | | | | + + + [...] [place], | | | | | | [place] [address] | | | | + + + + + + | K | 3.5Comment: Testing | 3.5 - 4.9 | EXTERNAL | | | | performed at [facility], [address] | mmol/L | LAB | | | | [address], | | | | | | [place] [address] | | | | + + + + + + | Cl | 108Comment: Testing | 99 - 109 mmol/L | EXTERNAL | | | | performed at [facility], [address] | | LAB | | | | [address], | | | | | | [place] [address] | | | | + + + + + + | CO2 | 22 (L)Comment: Testing | 23 - 32 mmol/L | EXTERNAL | | | | performed at [facility], [address] | | LAB | | | | [address], | | | | | | [place] [address] | | | | + + + + + + | Anion Gap | 13Comment: Testing | 5 - 20 mmol/L | EXTERNAL | | | | performed at [facility], [address] | | LAB | | | | [address] [place], | | | | | | [place] [address] | | | | + + + + + + | Glucose, | 120 (H)Comment: Testing | 65 - 99 mg/dL | EXTERNAL | | | Fasting | performed at [facility], [address] | | LAB | | | | [address], | | | | | | [place] [address] | | | | + + + + + + | BUN | 10Comment: Testing | 8 - 25 mg/dL | EXTERNAL | | | | performed at [facility], [address] | | LAB | | | | [address], | | | | | | [place] [address] | | | | + + + + + + | Creatinine | 0.68Comment: Testing | 0.50 - 1.00 | EXTERNAL | | | | performed at [facility], [address] | mg/dL | LAB | | | | [address], | | | | | | [place] [address] | | | | + + + + + + | BUN/Creatin | 15Comment: Testing | | EXTERNAL | | | ine Ratio | performed at [facility], [address] | | LAB | | | | [address], | | | | | | [place] [address] | | | | + + + + + + | Calcium | 8.8Comment: Testing | 8.5 - 10.5 | EXTERNAL | | | | performed at [facility], [address] | mg/dL | LAB | | | | [address], | | | | | | [place] [address] | | | | + + + [...] [address], | | | | | | [place] [address] | | | | + + + [...] | right common femoral arteriotomy using a 6-Slovenian Mynx closure | | | device. INDICATIONS [...] lidocaine. Right radial artery cannulized with a 6-Slovenian | | | Slender sheath. Verapamil 2.5 [...] right common femoral artery cannulized with a 6-Slovenian sheath. | | | Right common femoral [...] was exchanged | | | for a 5-Slovenian FR4 diagnostic catheter that was advanced to [...] was | | | exchanged for a 6-Slovenian JR4 guide that was advanced to the [...] was closed using a | | | 6-Slovenian Mynx closure device with good hemostasis. The [...] the right common femoral arteriotomy using a 6-Slovenian Mynx | | closure device. | | [...] radial artery cannulized with a | | 6-Slovenian Slender sheath. Verapamil 2.5 mg, nitroglycerin 200 [...] femoral artery | | cannulized with a 6-Slovenian sheath. Right common femoral angiogram was | [...] a guidewire it was exchanged for a 5-Slovenian FR4 diagnostic catheter | | that was [...] guidewire the catheter was exchanged for a 6-Slovenian JR4 guide that | | was advanced [...] removed. The arteriotomy was closed using a 6-Slovenian Mynx closure | | device with good [...] | right common femoral arteriotomy using a 6-Slovenian Mynx closure | | | device. INDICATIONS [...] lidocaine. Right radial artery cannulized with a 6-Slovenian | | | Slender sheath. Verapamil 2.5 [...] right common femoral artery cannulized with a 6-Slovenian sheath. | | | Right common femoral [...] was exchanged | | | for a 5-Slovenian FR4 diagnostic catheter that was advanced to [...] was | | | exchanged for a 6-Slovenian JR4 guide that was advanced to the [...] was closed using a | | | 6-Slovenian Mynx closure device with good hemostasis. The [...] the right common femoral arteriotomy using a 6-Slovenian Mynx | | closure device. | | [...] radial artery cannulized with a | | 6-Slovenian Slender sheath. Verapamil 2.5 mg, nitroglycerin 200 [...] femoral artery | | cannulized with a 6-Slovenian sheath. Right common femoral angiogram was | [...] a guidewire it was exchanged for a 5-Slovenian FR4 diagnostic catheter | | that was [...] guidewire the catheter was exchanged for a 6-Slovenian JR4 guide that | | was advanced [...] removed. The arteriotomy was closed using a 6-Slovenian Mynx closure | | device with good [...] | right common femoral arteriotomy using a 6-Slovenian Mynx closure | | | device. INDICATIONS [...] lidocaine. Right radial artery cannulized with a 6-Slovenian | | | Slender sheath. Verapamil 2.5 [...] right common femoral artery cannulized with a 6-Slovenian sheath. | | | Right common femoral [...] was exchanged | | | for a 5-Slovenian FR4 diagnostic catheter that was advanced to [...] was | | | exchanged for a 6-Slovenian JR4 guide that was advanced to the [...] was closed using a | | | 6-Slovenian Mynx closure device with good hemostasis. The [...] the right common femoral arteriotomy using a 6-Slovenian Mynx | | closure device. | | [...] radial artery cannulized with a | | 6-Slovenian Slender sheath. Verapamil 2.5 mg, nitroglycerin 200 [...] femoral artery | | cannulized with a 6-Slovenian sheath. Right common femoral angiogram was | [...] a guidewire it was exchanged for a 5-Slovenian FR4 diagnostic catheter | | that was [...] guidewire the catheter was exchanged for a 6-Slovenian JR4 guide that | | was advanced [...] removed. The arteriotomy was closed using a 6-Slovenian Mynx closure | | device with good [...] | | | Clotting | performed at [facility];[address] | seconds | LAB | | | time, POC | [address];[place], [place] | | | | | | [address] | | | | + + + [...] + + | Historically converted procedure from [facility] environment | EXTERNAL LAB | + [...] | | | structurally normal. Tricuspid Valve: Ijud-ye-hcminupm tricuspid | | | regurgitation present. Tricuspid [...] TV A Maciel: 0.52 m/s TV Dec [place]: | | | 1.34 m/s2 TV Dec Time: 304.58 ms TV E Maciel: 0.41 m/s TV E/A | | | Ratio: 0.77 Technology Applications Teacher: ANGEL Authenticated by: [place] Ceja MD | [...] | tricuspid valve appears structurally normal.Tricuspid Valve: Wmec-gs-ssygogjk tricuspid | | regurgitation present.Tricuspid Valve: There [...] (A-L): | | 28.92 ml/m2LAAs A2C: 18.45 [id number] A-L A2C: 51.84 mlLAESV MOD A2C: 50.96 mlLALs | | A2C: 5.57 cmLAAs A4C: 17.24 [id number] A-L A4C: 48.66 mlLAESV MOD A4C: 48.28 [...] 28.92 cmAVA Vmax: 2.31 cm2AVA (VTI): 2.22 vc5TXSW (Vmax): | | 0.00 cm2/m2AVAI (VTI): 0.00 cm2/m2LVCI Dopp: 2.46 l/mrms9SKTI Dopp: 4.43 | | l/minHR: 68.95 BPMLVOT [...] mmHgTR maxP.34 mmHgTR Vmax: 3.36 m/sTV A Maicel: 0.52 m/sTV | | Dec [place]: 1.34 m/s2TV Dec Time: 304.58 msTV E Maciel: 0.41 m/sTV E/A Ratio: 0.77 | | Technology Applications Teacher: Joseticated by: [place] Ceja MDReport Date/Time: 09-25-2014 [...] A Maciel: 0.52 m/s | |TV Dec [place]: 1.34 m/s2 | |TV Dec Time: 304.58 ms | |TV E Maciel: 0.41 m/s | |TV E/A Ratio: 0.77 | | | |Technology Applications Teacher: KE | |Authenticated by: [place] Ceja MD [...] | | | | | performed at [facility];[address] | | | | | | [address] [facility];[place], [place] | | | | | | [address] | | | | + + + [...] | | | | | performed at [facility];[address] | | | | | | [address];[place], [place] | | | | | | [address] | | | | + + + [...] | | | Patient | performed at [facility];[address] | | LAB | | | | [address];[place], [place] | | | | | | [address] | | | | + + + [...] | | | | | performed at [facility];[address] | | | | | | [address];[place], [place] | | | | | | [address] | | | | + + + [...] | | | | | [place] [address] | | | | + + + + + + | Red Blood | 4.80Comment: Testing | 3.70 - 5.10 | EXTERNAL | | | Cells | performed at [facility], [address] | M/uL | LAB | | | Counted | [address], | | | | | | [place] [address] | | | | + + + + + + | Hemoglobin | 14.0Comment: Testing | 11.3 - 15.5 | EXTERNAL | | | | performed at [facility], [address] | g/dL | LAB | | | | [address], | | | | | | [place] [address] | | | | + + + + + + | Hematocrit, | 43.0Comment: Testing | 34.0 - 46.0 % | EXTERNAL | | | POC | performed at [facility], [address] | | LAB | | | | [address], | | | | | | [place] [address] | | | | + + + + + + | MCV | 89.5Comment: Testing | 80.0 - 100.0 fl | EXTERNAL | | | | performed at [facility], [address] | | LAB | | | | [address], | | | | | | [place] [address] | | | | + + + + + + | MCH | 29.1Comment: Testing | 27.0 - 34.0 pg | EXTERNAL | | | | performed at [facility], [address] | | LAB | | | | [address], | | | | | | [place] [address] | | | | + + + + + + | MCHC | 32.5Comment: Testing | 32.0 - 35.5 | EXTERNAL | | | | performed at [facility], [address] | g/dL | LAB | | | | [address], | | | | | | [place] [address] | | | | + + + + + + | RDW-CV | 44.6Comment: Testing | 37 - 53 fl | EXTERNAL | | | | performed at [facility], [address] | | LAB | | | | [address], | | | | | | [place] [address] | | | | + + + + + + | Platelet | 238Comment: Testing | 150 - 400 K/uL | EXTERNAL | | | Count | performed at [facility], [address] | | LAB | | | Plasma | [address], | | | | | | [place] [address] | | | | + + + + + + | MPV | 8.2Comment: Testing | fl | EXTERNAL | | | | performed at [facility], [address] | | LAB | | | | [address], | | | | | | [place] [address] | | | | + + + + + + | Differentia | AUTOMATEDComment: | | EXTERNAL | | | l Type | Testing performed at | | LAB | | | | [facility], [address] | | | | | | [place] | | | | | | [address] | | | | + + + + + + | % Segmented | 66.49Comment: Testing | % | EXTERNAL | | | | performed at [facility], [address] | | LAB | | | Neutrophils | [address], | | | | | | [place] [address] | | | | + + + + + + | % | 22.73Comment: Testing | % | EXTERNAL | | | Lymphocytes | performed at [facility], [address] | | LAB | | | | [address], | | | | | | [place] [address] | | | | + + + + + + | % Monocytes | 5.74Comment: Testing | % | EXTERNAL | | | | performed at [facility], [address] | | LAB | | | | [address], | | | | | | [place] [address] | | | | + + + + + + | % | 4.08Comment: Testing | % | EXTERNAL | | | Eosinophils | performed at [facility], [address] | | LAB | | | | [address], | | | | | | [place] [address] | | | | + + + + + + | % Basophils | 0.96Comment: Testing | % | EXTERNAL | | | | performed at [facility], [address] | | LAB | | | | [address], | | | | | | [place] [address] | | | | + + + + + + | Absolute | 5.13Comment: Testing | 1.90 - 7.40 | EXTERNAL | | | Segmented | performed at [facility], [address] | K/uL | LAB | | | Neutrophils | [address], | | | | | | [place] [address] | | | | + + + + + + | Absolute | 1.76Comment: Testing | 1.00 - 3.90 | EXTERNAL | | | Lymphocytes | performed at [facility], [address] | K/uL | LAB | | | | [address], | | | | | | [place] [address] | | | | + + + + + + | Absolute | 0.44Comment: Testing | 0.00 - 0.80 | EXTERNAL | | | Monocytes | performed at [facility], [address] | K/uL | LAB | | | | [address], | | | | | | [place] [address] | | | | + + + + + + | Absolute | 0.32Comment: Testing | 0.00 - 0.50 | EXTERNAL | | | Eosinophils | performed at [facility], [address] | K/uL | LAB | | | | [address], | | | | | | [place] [address] | | | | + + + + + + | Absolute | 0.07Comment: Testing | 0.00 - 0.10 | EXTERNAL | | | Basophils | performed at [facility], [address] | K/uL | LAB | | | | [address], | | | | | | [place] [address] | | | | + + + [...] EXTERNAL | | | | performed at [facility], [address] | uIU/mL | LAB | | | | [address], | | | | | | [place] [address] | | | | + + + [...] | | | (REF) | performed at [facility], [address] | | LAB | | | | [address], | | | | | | [place] [address] | | | | + + + [...] EXTERNAL | | | | performed at [facility], [address] | | LAB | | | | [address], | | | | | | [place] [address] | | | | + + + [...] EXTERNAL | | | | performed at [facility];[address] | | LAB | | | | [address];[place] | | | | | [...] | | | | | [place] [address] | | | | + + + [...] | EXTERNAL | | | A1c | [place] [facility] | | LAB | | | [...] | | | | | performed at [facility], [facility] | | | | | | [address], | | | | | | [place] [address] | | | | + + + [...] | | | | | performed at [facility], [address] | | | | | | [address], | | | | | | [place] [address] | | | | + + + [...] | | | | | [place] [address] | | | | + + + + + + | Triglycerid | 122Comment: Testing | mg/dL | EXTERNAL | | | es | performed at [facility], [address] | | LAB | | | | [address], | | | | | | [place] [address] | | | | + + + + + + | HDL | 37 (L)Comment: Testing | mg/dL | EXTERNAL | | | | performed at [facility], [address] | | LAB | | | | [address], | | | | | | [place] [address] | | | | + + + + + + | LDL, | 60Comment: Testing | mg/dL | EXTERNAL | | | Calculated | performed at [facility], [address] | | LAB | | | | [address], | | | | | | [place] [address] | | | | + + + [...] | | | | | [place] [address] | | | | + + + + + + | K | 3.6Comment: Testing | 3.5 - 4.9 | EXTERNAL | | | | performed at [facility], [address] | mmol/L | LAB | | | | [address], | | | | | | [place] [address] | | | | + + + + + + | Cl | 105Comment: Testing | 99 - 109 mmol/L | EXTERNAL | | | | performed at [facility], [address] | | LAB | | | | [address], | | | | | | [place] [address] | | | | + + + + + + | CO2 | 24Comment: Testing | 23 - 32 mmol/L | EXTERNAL | | | | performed at [facility], [address] | | LAB | | | | [address], | | | | | | [place] [address] | | | | + + + + + + | Anion Gap | 12Comment: Testing | 5 - 20 mmol/L | EXTERNAL | | | | performed at [facility], [address] | | LAB | | | [address], | | | | | | [place] [address] | | | | + + + + + + | Glucose, | 154 (H)Comment: Testing | 65 - 99 mg/dL | EXTERNAL | | | Fasting | performed at [facility], [address] | | LAB | | | | [address], | | | | | | [place] [address] | | | | + + + + + + | BUN | 15Comment: Testing | 8 - 25 mg/dL | EXTERNAL | | | | performed at [facility], [address] | | LAB | | | | [address], | | | | | | [place] [address] | | | | + + + + + + | Creatinine | 0.90Comment: Testing | 0.50 - 1.00 | EXTERNAL | | | | performed at [facility], [address] | mg/dL | LAB | | | | [address], | | | | | | [place] [address] | | | | + + + + + + | BUN/Creatin | 17Comment: Testing | | EXTERNAL | | | ine Ratio | performed at [facility], [address] | | LAB | | | | [address], | | | | | | [place] [address] | | | | + + + + + + | Calcium | 9.3Comment: Testing | 8.5 - 10.5 | EXTERNAL | | | | performed at [facility], [address] | mg/dL | LAB | | | | [address] [facility], | | | | | | [place] [address] | | | | + + + [...] W | | | | | | [facility], | | | | | | [place] [address] | | | | + + + [...] | | | Patient | performed at [facility];[address] | | LAB | | | | [address];[place] | | | | | | [address] | | | | + + + [...] | | | | | performed at [facility];[address] | | | | | | [facility];[place], [place] | | | | | | [address] | | | | + + + [...] Testing performed | | | at [facility], [address] [place] [address] | | + + + + +---------+ [...] EXTERNAL | | | | performed at [facility], [address] | | LAB | | | | [address], | | | | | | [place] [address] | | | | + + + + + + | Clarity | CLEARComment: Testing | | EXTERNAL | | | | performed at [facility], [address] | | LAB | | | | [address], | | | | | | [place] [address] | | | | + + + + + + | Specific | 1.015Comment: Testing | 1.002 - 1.030 | EXTERNAL | | | [place], | performed at [facility], [address] | | LAB | | | Urine | [address], | | | | | | [place] [address] | | | | + + + + + + | Leukocyte | SMALL (A)Comment: | | EXTERNAL | | | Esterase, | Testing performed at | | LAB | | | Urine | [facility], [address] | | | | | | [place] | | | | | | [address] | | | | + + + + + + | Nitrite, | NEGATIVEComment: Testing | | EXTERNAL | | | Urine | performed at [facility], [address] | | LAB | | | | [address], | | | | | | [place] [address] | | | | + + + + + + | Urobilinoge | 0.2Comment: Testing | mg/dL | EXTERNAL | | | n, Urine | performed at [facility], [address] | | LAB | | | | [address], | | | | | | [place] [address] | | | | + + + + + + | Protein, | NEGATIVEComment: Testing | mg/dL | EXTERNAL | | | Urine | performed at [facility], [address] | | LAB | | | | [address], | | | | | | [place] [address] | | | | + + + + + + | pH, Urine | 6.5Comment: Testing | 5.0 - 8.0 | EXTERNAL | | | | performed at [facility], [address] | | LAB | | | [address], | | | | | | [place] [address] | | | | + + + + + + | Blood, | NEGATIVEComment: Testing | | EXTERNAL | | | Urine | performed at [facility], [address] | | LAB | | | | [address], | | | | | | [place] [address] | | | | + + + + + + | Ketones | 15 (A)Comment: Testing | mg/dL | EXTERNAL | | | | performed at [facility], [address] | | LAB | | | | [address], | | | | | | [place] [address] | | | | + + + + + + | Bilirubin, | NEGATIVEComment: Testing | | EXTERNAL | | | Urine | performed at [facility], [address] | | LAB | | | | [address], | | | | | | [place] [address] | | | | + + + + + + | Glucose, | NEGATIVEComment: Testing | mg/dL | EXTERNAL | | | Urine | performed at [facility], [address] | | LAB | | | | [address], | | | | | | [place] [address] | | | | + + + + + + | WBC, UA | 11-15Comment: Testing | 0 - 5 /hpf | EXTERNAL | | | | performed at [facility], [address] | | LAB | | | | [address], | | | | | | [place] [address] | | | | + + + + + + | RBC, UA | 0-2Comment: Testing | 0 - 5 /hpf | EXTERNAL | | | | performed at [facility], [address] | | LAB | | | | [address], | | | | | | [place] [address] | | | | + + + + + + | Epithelial | 26-50Comment: Testing | /lpf | EXTERNAL | | | Cells | performed at [facility], [address] | | LAB | | | | [address], | | | | | | [place] [address] | | | | + + + + + + | Bacteria, | 2+ (A)Comment: CULTURE | | EXTERNAL | | | UA | TO FOLLOWTesting | | LAB | | | | performed at [facility], [address] | | | | | | [address], | | | | | | [place] [address] | | | | + + + + + + | HYALINE | 0-2Comment: Testing | | EXTERNAL | | | CASTS UA | performed at [facility], [address] | | LAB | | | | [address], | | | | | | [place] [address] | | | | + + + [...] EXTERNAL | | | | performed at [facility];[address] | K/uL | LAB | | | | [address];[place] | | | | | | [address] | | | | + + + + + -+ | Red Blood | 4.88Comment: Testing | 3.70 - 5.10 | EXTERNAL | | | Cells | performed at [facility];[address] | M/uL | LAB | | | Counted | [address];[place] | | | | | | [address] | | | | + + + + + -+ | Hemoglobin | 14.2Comment: Testing | 11.3 - 15.5 | EXTERNAL | | | | performed at [facility];[address] | g/dL | LAB | | | | [address];[place] | | | | | | [address] | | | | + + + + + -+ | Hematocrit, | 43.7Comment: Testing | 34.0 - 46.0 % | EXTERNAL | | | POC | performed at [facility];[address] | | LAB | | | | [address];[place] | | | | | | [address] | | | | + + + + + -+ | MCV | 89.4Comment: Testing | 80.0 - 100.0 fl | EXTERNAL | | | | performed at [facility];[address] | | LAB | | | | [address];[place] | | | | | | [address] | | | | + + + + + -+ | MCH | 29.2Comment: Testing | 27.0 - 34.0 pg | EXTERNAL | | | | performed at [facility];[address] | | LAB | | | | [address];[place] | | | | | | [address] | | | | + + + + + -+ | MCHC | 32.6Comment: Testing | 32.0 - 35.5 | EXTERNAL | | | | performed at [facility];[address] | g/dL | LAB | | | | [address];[place] | | | | | | [address] | | | | + + + + + -+ | RDW-CV | 45.5Comment: Testing | 37 - 53 fl | EXTERNAL | | | | performed at [facility];[address] | | LAB | | | | [address];[place] | | | | | | [address] | | | | + + + + + -+ | Platelet | 247Comment: Testing | 150 - 400 K/uL | EXTERNAL | | | Count | performed at [facility];[address] | | LAB | | | Plasma | [address];[place] | | | | | | [address] | | | | + + + + + -+ | MPV | 7.5Comment: Testing | fl | EXTERNAL | | | | performed at [facility];[address] | | LAB | | | | [address];[place] | | | | | | [address] | | | | + + + + + -+ | Differentia | AUTOMATEDComment: | | EXTERNAL | | | l Type | Testing performed at | | LAB | | | | [facility];[address];[place] [address] | | | | + + + + + -+ | % Segmented | 60.73Comment: Testing | % | EXTERNAL | | | | performed at [facility];[address] | | LAB | | | Neutrophils | [address];[place] | | | | | | [address] | | | | + + + + + -+ | % | 28.34Comment: Testing | % | EXTERNAL | | | Lymphocytes | performed at [facility];[address] | | LAB | | | | [address];[place] | | | | | | [address] | | | | + + + + + -+ | % Monocytes | 6.65Comment: Testing | % | EXTERNAL | | | | performed at [facility];[address] | | LAB | | | | [address];[place] | | | | | | [address] | | | | + + + + + -+ | % | 3.10Comment: Testing | % | EXTERNAL | | | Eosinophils | performed at [facility];[address] | | LAB | | | | [address];[place] | | | | | | [address] | | | | + + + + + -+ | % Basophils | 1.18Comment: Testing | % | EXTERNAL | | | | performed at [facility];[address] | | LAB | | | | [address];[place] | | | | | | [address] | | | | + + + + + -+ | Absolute | 4.12Comment: Testing | 1.90 - 7.40 | EXTERNAL | | | Segmented | performed at [facility];[address] | K/uL | LAB | | | Neutrophils | [address];[place] | | | | | | [address] | | | | + + + + + -+ | Absolute | 1.93Comment: Testing | 1.00 - 3.90 | EXTERNAL | | | Lymphocytes | performed at [facility];[address] | K/uL | LAB | | | | [address];[place] | | | | | | [address] | | | | + + + + + -+ | Absolute | 0.45Comment: Testing | 0.00 - 0.80 | EXTERNAL | | | Monocytes | performed at [facility];[address] | K/uL | LAB | | | | [address];[place] | | | | | | [address] | | | | + + + + + -+ | Absolute | 0.21Comment: Testing | 0.00 - 0.50 | EXTERNAL | | | Eosinophils | performed at [facility];[address] | K/uL | LAB | | | | [address];[place] | | | | | | [address] | | | | + + + + + -+ | Absolute | 0.08Comment: Testing | 0.00 - 0.10 | EXTERNAL | | | Basophils | performed at [facility];[address] | K/uL | LAB | | | | [address];[place] | | | | | | [address] | | | | + + + + + -+ | Na | 143Comment: Testing | 135 - 143 | EXTERNAL | | | | performed at [facility];[address] | mmol/L | LAB | | | | [address];[place] | | | | | | [address] | | | | + + + + + -+ | K | 3.6Comment: Testing | 3.5 - 4.9 | EXTERNAL | | | | performed at [facility];[address] | mmol/L | LAB | | | | [address];[place] | | | | | | [address] | | | | + + + + + -+ | Cl | 109Comment: Testing | 99 - 109 mmol/L | EXTERNAL | | | | performed at [facility];[address] | | LAB | | | | [address];[place] | | | | | | [address] | | | | + + + + + -+ | CO2 | 25Comment: Testing | 23 - 32 mmol/L | EXTERNAL | | | | performed at [facility];[address] | | LAB | | | | [address];[place] | | | | | | [address] | | | | + + + + + -+ | Anion Gap | 13Comment: Testing | 5 - 20 mmol/L | EXTERNAL | | | | performed at [facility];[address] | | LAB | | | | [address];[place] | | | | | | [address] | | | | + + + + + -+ | Glucose, | 114 (H)Comment: Testing | 65 - 99 mg/dL | EXTERNAL | | | Fasting | performed at [facility];[address] | | LAB | | | | [address];[place] | | | | | | [address] | | | | + + + + + -+ | BUN | 9Comment: Testing | 8 - 25 mg/dL | EXTERNAL | | | | performed at [facility];[address] | | LAB | | | | [address];[place] | | | | | | [address] | | | | + + + + + -+ | Creatinine | 0.79Comment: Testing | 0.50 - 1.00 | EXTERNAL | | | | performed at [facility] | mg/dL | LAB | | | | [address];[place] | | | | | | [address] | | | | + + + + + -+ | BUN/Creatin | 11Comment: Testing | | EXTERNAL | | | ine Ratio | performed at [facility] | | LAB | | | | [address];[place] | | | | | | [address] | | | | + + + + + -+ | Calcium | 8.8Comment: Testing | 8.5 - 10.5 | EXTERNAL | | | | performed at [facility] | mg/dL | LAB | | | | [address];[place] | | | | | | [address] | | | | + + + + + -+ | Protein, | 7.2Comment: Testing | 6.3 - 8.2 g/dL | EXTERNAL | | | Total | performed at [facility] | | LAB | | | | [address];[place] | | | | | | [address] | | | | + + + + + -+ | Albumin | 3.7Comment: Testing | 3.3 - 4.8 g/dL | EXTERNAL | | | | performed at [facility] | | LAB | | | | [address];[place] | | | | | | [address] | | | | + + + + + -+ | Globulin | 3.5Comment: Testing | 1.3 - 4.9 g/dL | EXTERNAL | | | | performed at [facility] | | LAB | | | | [address];[place] | | | | | | [address] | | | | + + + + + -+ | A/G Ratio | 1.1Comment: Testing | 1.0 - 2.4 | EXTERNAL | | | | performed at [facility] | | LAB | | | | [address];[place] | | | | | | [address] | | | | + + + + + -+ | Bilirubin | 0.8Comment: Testing | 0.1 - 1.5 mg/dL | EXTERNAL | | | Total | performed at [facility] | | LAB | | | | [address];[place] | | | | | | [address] | | | | + + + + + -+ | ALP, | 104Comment: Testing | 35 - 115 U/L | EXTERNAL | | | External | performed at [facility] | | LAB | | | | [address];[place] | | | | | | [address] | | | | + + + + + -+ | AST | 26Comment: Testing | 10 - 45 U/L | EXTERNAL | | | | performed at [facility] | | LAB | | | | [address];[place] | | | | | | [id number] | | | | + + + + + -+ | ALT | 31Comment: Testing | 10 - 65 U/L | EXTERNAL | | | | performed at [facility];888 | | LAB | | | | [address];[place] | | | | | | [id number] | | | | + + + [...] | | | | | | at [facility];[address] | | | | | | [address];[place] [phone] | | | | + + + + + -+ | CK, Total | 42Comment: Testing | 30 - 240 U/L | EXTERNAL | | | | performed at [facility];[address] | | LAB | | | | [address];[place] | | | | | | [phone] | | | | + + + [...] | | | | | performed at [facility];[address] | | | | | | [address];[place] | | | | | | [address] | | | | + + + + + -+ | aPTT, | 30Comment: Testing | 23 - 32 seconds | EXTERNAL | | | Patient | performed at [facility];[address] | | LAB | | | | [address];[place] | | | | | | [address] | | | | + + + + + -+ | CK-MB | 1.1Comment: Testing | 0.5 - 3.6 ng/mL | EXTERNAL | | | | performed at [facility];[address] | | LAB | | | | [address];[place] | | | | | | [address] | | | | + + + [...] EXTERNAL | | | | performed at [facility];88 | | LAB | | | | [address];[place] | | | | | | [address] | | | | + + + [...] | | | | | ONLY, -COMPUTER (252), | | | | | | story editor Nadia Smith | | | | | | (18) on 09/24/2014 | | | | | | 5:29:47 PM | | | | + + + + + + + + | Specimen | + + | | + + + + + | Narrative | Performed At | + + + | Historically converted procedure from [facility] Epic environment | EXTERNAL LAB | [...] + + | CHF (congestive heart failure) ([facility]) Congestive heart failure, unspecified | + + | NSTEMI (non-ST elevated myocardial infarction) ([facility]) Acute myocardial infarction, | | subendocardial infarction, episode of care unspecified | + + documented in this encounter
--- OUTSIDE RECORDS SUMMARY | ~2019-11-15 | XMS | Clinical Summary ---
Demographics + + + | Address | [address] | | | [place] [address] | + + + | Home Phone | | + + + | Preferred Language | Unknown | + + + | Marital Status | | + + + | Anabaptism Affiliation | Unknown | + + + | Race | Unknown | + + + | Ethnic Group | Unknown | + + + Author + + + | Author | [facility] | | | and [place] | + + + | Organization | [facility] | | | and [...] Team Providers + +------+ + | Care Criminalist Technician Name | Role | Phone | [...] + + | Coronary artery disease involving rosebud coronary artery without | 02/24/2015 | | [...] +--------+ +---------+--------+ | MEDICARE | MEDICA | [id number] | 08/16/19 | [phone] | | Medica | | | RE | | 04-Pre | 5 | | re | | | PART A | | sent | | | | | | AND B | | | | | | + +--------+ +--------+ +---------+--------+ | [facility] | IHS | [id number] | 07/26/19 | | | Indemn | [...] Person | Self | [birth year] | [address] | | | al/Fam | | 1936 | [phone] | [place] [address] | | | sabine | | | 4 (Home) | | + +--------+ +--------+ + + Advance Directives + + + + + | Type | Date Recorded | Patient | Explanation | | | | Dumper Bulk System | | + + + + + | Power of | | | | | Grief Counsellor | | | | + + + + + | Advance | | | | | Directive | | | | + + + + +
--- OUTSIDE RECORDS SUMMARY | ~2019-11-15 | XMS | Encounter Summary ---
Demographics + + + | Address | [address] | | | [place] [address] | + + + | Home Phone [...] Author | [facility] | | | and [place] | + + + | Organization | [facility] | | | and [place] | [...] Team Providers + +------+ + | Care Chocolate Molder Name | Role | Phone | + +------+ + PCP | Unavailable | + +------+ + Encounter Details +--------+ + + + + | Date | Type | Department | Care Team | Description | +--------+ + + + + | 02/04/ | Hospital | [facility] | Lena [facility] | | | 2011 | Encounter | [facility] | MD [address]hemi [address] | | | | | LABORATORY [address] | | | [address] [place] | [place] [address] | | | | | [address] | [phone] | | | | | [phone] | | | +--------+ + + + [...] + + + | Exam Performed Location: [facility] [place] CHEST | MISCELANIOUS | | TWO VIEWS CLINICAL INFORMATION: Pre-operative for vaginal laser | LAB | | procedure. COMPARISON: None. FINDINGS: The heart size and | | | pulmonary vasculature are within normal limits. No focal | | | consolidation. No pleural effusion or pneumothorax. Visualized | | | bones are unremarkable. IMPRESSION: Negative chest radiographs. | | | S: SQ ([id number]) Signed by: GARCIA HEART MD | | + + + + + | Procedure Note | + + | Pineda Gomez - 04/09/2013 7:17 AM PDT Exam Performed Location: [facility] | | at [facility] TWO VIEWSCLINICAL INFORMATION:Pre-operative for vaginal laser | | procedure.COMPARISON:None.FINDINGS:The heart size and pulmonary vasculature are within | | normal limits.No focal consolidation. No pleural effusion or pneumothorax.Visualized | | bones are unremarkable.IMPRESSION:Negative chest radiographs.S: SQ ([id number]) Signed by: | | GARCIA HEART MD | | | |COMPARISON: | |None. | | | |FINDINGS: | |The heart size and pulmonary vasculature are within normal limits. | |No focal consolidation. No pleural effusion or pneumothorax. | |Visualized bones are unremarkable. | | | |IMPRESSION: | |Negative chest radiographs. | | | | | |S: SQ ([id number]) Signed by: GARCIA HEART MD | + + + +---------+ + + | Performing | Address | City/State/Zipcode | Phone Number | | Organization | | | | + +---------+ + + | MISCELLANEOUS LAB | | | [phone] | + +---------+ + + | MISCELANIOUS LAB | | | [phone] | + +---------+ + + Basic Metabolic [...] + + | Glucose | 105 (H)Comment: Turkish | 65 - 99 mg/dL | [facility] | | | | Diabetes Association | [...] + | [facility] | [address] | [place] [address] | | | [facility] | | | | | LABORATORY | | | | + + + + + | [facility] | | | | | [facility] | | | | | LABORATORY [...] + + | [facility] | [address] | [place] [address] | | | [facility] | | | | | LABORATORY | | | | + + + + + | [facility] | | | | | [facility] | | | | | LABORATORY | | | | + + + + + documented in this encounter Visit Diagnoses Not on filedocumented in this encounter"
--- OUTSIDE RECORDS SUMMARY | ~2019-11-15 | XMS | Encounter Summary ---
Demographics + + + | Address | [address] | | | [place] [address] | + + + | Home Phone | | + + + | Preferred Language | Unknown | + + + | Marital Status | | + + + | Christian Affiliation | Unknown | + + + | Race | Unknown | + + + | Ethnic Group | Unknown | + + + Author + + + | Author | [facility] | | | and [place] | + + + | Organization | [facility] | | | and [place] [...] Team Providers + +------+ + | Care Assembler Bicycle Name | Role | Phone | + [...] | | | | | Procedures | [place] [address] | [place] | | | | | PARADICHLOROBENZENE MACHINE OPERATOR consult | Phone: | [phone] | | | | | | [phone] | Phone: | | | | | | Fax: | [phone] | | | | | | [phone] | Fax: | | | | | | | [phone] | +--------+--------+ + + + + Encounter Details +--------+---------+ + + + | Date | Type | Department | Care Team | Description | +--------+---------+ + + + | 02/24/ | Office | [facility] | Faith Aguayo | Atrial fibrillation, | | 2014 | Visit | [facility] | MD Edy [address] | unspecified (HCC) | | | | [address] | [address] | (Primary Dx); | | | | [address] [place], [place] | [place] [address] | Coronary artery | | | | [address] | [phone] | disease involving | | | | [phone] | | shoshone-bannock coronary | | | | | | [...] management is appropriate 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 Yjuvsgatlix-Sptlxkota-Gxq C-Mn (GLUCOSAMINE CHONDR 500 COMPLEX PO) Take [...] on file as of 02/24/2015. Please note [facility] has a flaw in which medication corrections [...] contact me. 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
--- OUTSIDE RECORDS SUMMARY | ~2019-11-15 | XMS | Encounter Summary ---
Demographics + + + | Address | [address] | | | [place] [address] | + + + | Home Phone | | + + + | Preferred Language | Unknown | + + + | Marital Status | | + + + | Anabaptist Affiliation | Unknown | + + + | Race | Unknown | + + + | Ethnic Group | Unknown | + + + Author + + + | Author | [facility] | | | and [place] | + + + | Organization | [facility] | | | and [place] [...] Team Providers + +------+ + | Care Barratte Operator Name | Role | Phone | + +------+ + PCP | Unavailable | + +------+ + Encounter Details +--------+ + + + + | Date | Type | Department | Care Team | Description | +--------+ + + + + | 02/05/ | Hospital | [facility] | Lena [facility] | | | 2011 | Encounter | [facility] | MD [address] | | | | | GENERIC CONV DEPT | [address] | | | | | [address] | [place] [address] | | | | | [place] | [phone] | | | | | [address] | | | | | | [phone] | | | +--------+ + + + [...] + + | [facility] | [address] | [place] [address] | | | [facility] | | | | | LABORATORY | | | | + + + + + | [facility] | | | | | [facility] | | | | | LABORATORY | | | | + + + + + documented in this encounter Visit Diagnoses Not on filedocumented in this encounter"
[~2019-11-15 18:12] MED LIST changes: +COZAAR100 MG PO; -COZAAR25 MG PO; -LIPITOR10 MG PO; +LIPITOR40 MG PO; +METOPROLOL SUC100 MG PO; -METOPROLOL SUCC25 MG PO
--- NOTE | 2019-11-15 21:20 | NUR ---
PT BROUGHT FROM ED TO ICU ROOM 130, ADMITTED WITH DIAGNOSIS OF PNEUMONIA. PT IS AWAKE AND ORIENTED. IN TO THE BR TO VOID 400ML DARK YELLOW URINE BEFORE GETTING INTO THE BED. PT DENIES ANY LIGHTHEADEDNESS OR DIZZINESS WHILE UP, STEADY ON FEET. ONCE BACK INTO BED BP WAS LOW- ORDERED IVF WERE STARTED AND ASSESSMENT WAS DONE-BP RECHECKED WAS UP TO 87/57 MAP 64. HR SINUS WITH RATE IN THE 90'S. ON ASSESSMENT PT HAD CLEAR LUNGS, DENIES PAIN OR SOB, SPO2 95-98% ON ROOM AIR.
--- NOTE | 2019-11-15 21:50 | NUR ---
LAB ARRIVES TO DRAW BUT THEN STATES THEY WILL NOT GO INTO ISOLATION ROOM. RN IN TO DRAW BLOOD.
--- NOTE | 2019-11-15 22:45 | NUR ---
WHILE CALLING DR WILKES TO INFORM HIM OF LOW BP'S, PTS HEART RHYTHM CHANGED FROM SINUS RHYTHM TO AFIB WITH RATE GOING FROM 80-90'S TO 120-130'S. DR WILKES INFORMED, ORDER GIVEN FOR 1L LR BOLUS. BOLUS STARTED, DR WILKES ARRIVED ON UNIT.
--- NOTE | 2019-11-15 23:05 | NUR ---
CRITICAL LAB VALUE - LACTIC ACID OF 4.1, REPORTED TO DR WILKES AT THIS TIME.
--- NOTE | 2019-11-15 23:30 | NUR ---
PT UP TO BSC TO VOID 400ML LIGHT COLORED URINE, STEADY ON FEET AND DENIES ANY DIZZINESS OR LIGHTHEADEDNESS, SBA. LUNGS CLEAR, DIM IN BASES. BACK TO BED AND GATICA PLACED WITH IMMEDIATE RETURN OF 350ML MORE URINE. BPS UP AFTER BOLUS TO 90/70. HR REMAINS 120'S. DR WILKES TO ENTER ORDER FOR NEOSYNEPHRINE.
--- NOTE | 2019-11-16 00:30 | NUR ---
BPS HAVE DROPPED BACK DOWN. 79/58 MAP 68 AND 83/65 MAP 69, WILL START NEOSYNEPHRINE AT 40MCG/MIN.
--- NOTE | 2019-11-16 00:57 | NUR ---
PT HAD 325ML URINE FOR THE LAST HOUR. RESTING HR NOW 110-115, SPO2 ON 2L 99% RR 12 AND CURRENT BP ON 40MCG/MIN OF NEOSYNEPHRINE IS 95/73 MAP 76.
--- NOTE | 2019-11-16 03:16 | NUR ---
IN TO CHECK ON PT SHE HAS TAKEN OFF HER BP CUFF, STATES SHE IS HAVING TROUBLE SLEEPING. LUNGS REMAIN CLEAR. PT DENIES PAIN. NEOSYNEPHRINE HAS BEEN INFUSING AT 40MCG/MIN, WILL TRY TURNING OFF AND SEE IF BP'S HOLD. LAST BP WAS 129/101. IV SITES INTACT. RESTING HR REMAINS 110-130 AFIB.
--- NOTE | 2019-11-16 04:10 | NUR ---
PT HAD PAUSE IN HEART RHYTHM 3.3 SECONDS. IN TO CHECK ON PT, WAS AWAKE, DENIED FEELING ANY SX, DR WILKES NOTIFIED. CONT TO MONITOR.
--- NOTE | 2019-11-16 05:40 | NUR ---
IN TO START NEW IV AND DRAW BLOOD FOR LAB. PT IS AWAKE IN BED, DURING THIS, PT HAS HAD 3 MORE PAUSES APPROX 5 SECONDS. IN ROOM WITH PT DURING EPISODE, PT REMAINED AWAKE, LYING IN BED DURING THIS TIME, WHEN ASKED HOW SHE FEELS SHE STATES "FINE" AND DENIES FEELING ANYTHING ALTHOUGH SHE IS SLOW TO RESPOND AT FIRST. AFTER PAUSES PTS HR RETURNED BACK TO WHERE IT HAD BEEN- 110-120'S AFIB. DR WILKES NOTIFIED AND UPDATED REGARDING CURRENT VITALS. WILL CONT TO MONITOR. PT NOW LYING BACK IN BED TRYING TO SLEEP, STATES SHE FEELS VERY TIRED SHE HAS ONLY BEEN ABLE TO SLEEP APPROX 1 HOUR LAST NIGHT.
--- NOTE | 2019-11-16 07:03 | NUR ---
IN TO CHECK ON PT, AWAKE IN BED. WHEN ASKED IF SHE HAS HAD ANY PAIN OR DIFFICULTY BREATHING SHE STATES YES "AROUND 6 OR 6:30. I JUST DIDN'T FEEL RIGHT. LIKE I HAD TO TAKE BIG BREATHS TO GET ENOUGH AIR." SHE STATES THAT AT THIS TIME "I FEEL OKAY" DENIES PAIN OR OTHER C/O REMAINS ON 2L/O2 WITH SPO2 96-98%
--- NOTE | 2019-11-16 08:00 | NUR ---
RECEIVED REPORT AT 0700, HR IN THE 120'S AT THAT TIME. HR IN THE LOW 100'S NOW. PT IS AAOX4, PT SEEMS IN GOOD SPIRITS AND DENIES SOB AND PAIN. ALL LOBES ARE CLEAR, ABD SOUNDS PRESENT, PT STATES ABD IS NORMAL FOR HER. NO PERIPHERAL EDEMA NOTED, RADIAL AND PEDIS PULSES +2, OVERALL STRENGTH +4. PT STATED THAT SHE WAS FEELING BETTER THIS MORNING OVERALL. PT IS STILL ON 2L O2 NC FOR NOW. WILL TRY TO WEAN OFF. NO NEW CONCERNS WERE NOTED SO FAR.
--- NOTE | 2019-11-16 09:20 | NUR ---
BG WAS 112, NO INSULIN WAS GIVEN. PT ATE BREAKFAST. PT BACK IN BED RESTING.
--- NOTE | 2019-11-16 09:30 | NUR ---
Waved at pt through the window. Notified I will call. Updated by RN pt's phone is not next to here. She is on covid precautions, RN will give her the phone the next time she is in the room.
--- NOTE | 2019-11-16 10:02 | NUR ---
PT IS BRUSHING HER TEETH AT THIS TIME. PT IS ALSO ON ROOM AIR AT THIS TIME AND MAINTAINING O2 SATS >95%. NO NEW CONCERNS NOTED AT THIS TIME.
--- NOTE | 2019-11-16 11:15 | NUR ---
ASSISTED PT TO BEDSIDE COMMODE. PT HAD A BM. HR WAS IN THE LOW 100'S DURING. PT ON ROOM AIR. NO NEW CONCERNS NOTED.
--- NOTE | 2019-11-16 11:30 | NUR ---
Attempted to call, pt does not answer. Spoke with RN and she states phone is within reach. Will call later or see tomorrow.
--- NOTE | 2019-11-16 12:20 | NUR ---
HR NOW NOW HAS BEEN SUSTAINED IN THE 120-130'S FOR ABOUT 10 MINUTES. LOPRESSOR TO BE GIVEN. PT IS JUST LAYING STILL IN BED.
--- NOTE | 2019-11-16 12:49 | NUR ---
ALL LOBES ARE CLEAR, PT DENIES SOB, NO INSULIN WAS NEEDED FOR LUNCH. HR STILL IN THE 130'S. PT IS SITTING AT BEDSIDE EATING LUNCH. NO CHANGES WERE NOTED FROM FIRST ASSESSMENT OTHERWISE. PT STILL ON ROOM AIR, URINE OUTPUT IS ADEQUATE, BP'S HOLDING SO FAR. WILL CONTINUE TO MONITOR.
--- NOTE | 2019-11-16 13:16 | NUR ---
HR STILL IN THE 120-130'S. MD WILKES WAS CALLED FOR RECOMMENDATION. NO NEW ORDERS WERE RECEIVED. WILL CONTINUE TO MONITOR.
--- NOTE | 2019-11-16 13:30 | NUR ---
PATIENT LYING IN BED AND VERY LONG PAUSES NOTED ON ECG. THIS RN INTO ROOM IMMEDIATELY AND PATIENT NOW APPEARS TO BE IN SINUS RHYTHM. PT DENIES FEELING SHORT OF BREATH, DIZZY, AND DENIES ANY CHEST PAIN. PT UNAWARE OF LARGE PAUSES. BP AT THIS TIME 104/69 (78). HR IN THE 70-80s.
--- NOTE | 2019-11-16 13:37 | NUR ---
PATIENT CONVERTED TO SINUS RHYTHM AT 1326 AFTER A 9 SECOND PAUSE. PT DENIES FEELING ANYTHING ABNORMAL.
--- NOTE | 2019-11-16 15:02 | NUR ---
ASSISTED PT WITH A CLOTH BATH. PT WALKED TO BATHROOM AND TOLERATED IT WELL. BP'S WDL AGAIN. THEY WERE SOFT EARLIER. FRESH LINNENS ON BED
--- NOTE | 2019-11-16 16:45 | NUR ---
PT IS STILL ON RA. ALL LOBES CLEAR, PT DENIES SOB AND ANY PAIN FOR THAT MATTER. PT HAD ANOTHER BM THIS AFTERNOON. GATICA D/C AT 1616' JOHN. NO PERIPHERAL EDEMA NOTED. OVERALL STRENGTH HAS IMPROVED A GOOD BIT SINCE START OF SHIFT. PT NO ABLE TO WALK TO BATHROOM WITHOUT ANY DIFFICULTY. DIFLUCANE GIVEN FOR YEAST INFECTION. NO NEW CONCERNS NOTED. WILL CONTINUE MONITOR.
--- NOTE | 2019-11-16 17:57 | EKG ---
[facility] [address] [facility] [place] [address] Signed Atrial fibrillation Left axis deviation Left ventricular hypertrophy with QRS widening T wave abnormality, consider lateral ischemia Abnormal ECG When compared with ECG of 27-FEB-2019 15:00, Borderline criteria for Lateral infarct are no longer present QT has shortened Confirmed by SIENNA WILKES DO ([id number]) on 11/16/2019 5:57:05 PM Electronically Signed By: SIENNA WILKES DO 11/16/19 1757 PATIENT NAME: ILYAKIMBERLEE Electrocardiogram DATE OF : 39 PHYSICIAN: SIENNA WILKES DO REPORT #: [id number] REPORT IS CONFIDENTIAL AND NOT TO BE RELEASED WITHOUT AUTHORIZATION
--- NOTE | 2019-11-16 18:08 | NUR ---
ECH IS FINISHED.BG WAS 111, NO INSULIN WAS NEEDED. PT IS EATING DINNER AT THIS TIME. V/S ARE WDL.
--- NOTE | 2019-11-16 19:30 | NUR ---
REPORT RECEIVED FROM DAY SHIFT. PT IS RESTING IN BED, EYES CLOSED, APPEARS TO BE SLEEPING. RESP EVEN UNLABORED, SPO2 97% ON 2L/O2, HR 80S SINUS RHYTHM.
--- NOTE | 2019-11-16 20:30 | NUR ---
BP'S HAVE BEEN LOW, WILL WAIT ON DENISE METOPROLOL TO SEE IF VS MEET PARAMETERS.
--- NOTE | 2019-11-16 21:30 | NUR ---
IN TO CHECK ON PT AND GIVE HS MEDS, BP'S HAVE COME UP. PT DENIES PAIN, SITTING ON EDGE OF BED. STATES SHE IS FEELING LIKE IT IS HARD TO "TAKE A DEEP BREATH". LUNGS HAVE COARSE SOUNDS ON LEFT, SPO2 ON 2L/O2 98%, RESP RATE 22.
--- NOTE | 2019-11-16 22:45 | NUR ---
OVER THE LAST HOUR THE PATIENT HAS REQUIRED MORE O2, AND RESP RATE HAS GOTTEN INTO HIGH 20'S TO 30'S, SHALLOW, SOMEWHAT LABORED RESP. PT HAS BEEN COMPLAINING MORE OF FEELING SOB AND GETTING RESTLESS WANTING TO LIE DOWN THEN SIT UP AT BEDSIDE. OVERALL PT LOOKS MUCH WEAKER AND SLOWER. DENIES CHEST PAIN.
--- NOTE | 2019-11-16 23:00 | NUR ---
CALLED DR WILKES TO UPDATE REGARDING PT CHANGE IN CONDITION, IN TO ASSES PT-ORDERS GIVEN FOR EKG, CXR AND TROPONIN
--- NOTE | 2019-11-16 23:14 | NUR ---
pts oximeter wasnt reading correctly. a sticker oximeter was applied and gives a more accurate reading.
--- NOTE | 2019-11-16 23:30 | NUR ---
EKG performed with help of RT Hernandez.
--- NOTE | 2019-11-16 23:35 | NUR ---
EKG DONE, LAB DRAWN AND SENT AND XR IN DOING CXR.
--- NOTE | 2019-11-16 23:48 | NUR ---
CALLED MD TO UPDATE ON PT CHANGE IN CONDITION, DR WILKES IN TO ASSESS PT. ORDERS GIVEN.
--- NOTE | 2019-11-17 00:48 | NUR ---
PT CONT TO HAVE TACHYPNEA RR 24-38, SHALLOW AND REPORTS "HYPERVENTILATING" AND "I CANT STOP FAST-BREATHING". SPO2 92% ON 4L/NC. PT APPEARS VERY WEAK AND LETHARGIC, LYING BACK IN BED, HR 90. BP 128/92. UPDATE TO DR WILKES-20MG IV LASIX GIVEN.
--- NOTE | 2019-11-17 01:12 | NUR ---
PT REFUSES GATICA, DOES NOT APPEAR IF SHE WOULD TOLERATE GETTING UP TO BSC FOR FREQUENT VOIDING AFTER LASIX SO PT STATES SHE WOULD PREFER TO USE ATTNEDS. PT HAS ONE LARGE VOID, ATTENDS CHANGED AND PT REPOSITIONED UP IN BED. AT THIS TIME SPO2 93% ON 4L/NC, RESP RATE 30, HR 98 AND BP 139/105.
--- NOTE | 2019-11-17 01:29 | NUR ---
PT CALLS WITH ANOTHER VOID, ATTENDS CHANGED AND PT UP IN BED.
--- NOTE | 2019-11-17 01:54 | NUR ---
PT USED CALLED LIGHT TO ASK FOR HER DEPENDS TO BE CHANGED. PT WAS REPOSITIONED AND DID NOT NEED ANYTHING FURTHER AT THIS TIME.
--- NOTE | 2019-11-17 03:13 | NUR ---
CRITICAL VALUE RECEIVED FROM LAB, TROPONIN 0.059-TRENDING DOWNWARD. PT CURRENTLY IN BED RESTING, HR 84, RESP RATE 31, SPO2 93%.
--- NOTE | 2019-11-17 03:36 | NUR ---
NOTICED PTS HEART RATE GO UP TO 115, FOUND PT SITTING UP IN BED WITH GOWN OFF, TANGLED IN MONITOR CORDS AND OXYGEN. STATES SHE WAS GETTING UP TO GO INTO THE BATHROOM-REMINDED HER NOT TO GET UP WITHOUT HELP AND SHE STATED SHE FORGOT. ASSISTED HER TO BSC TO VOID 250ML THEN BACK TO BED. ASSESSMENT DONE. PT REPORTS FEELING LESS SOB "MY BREATHING IS BETTER". LUNGS HAVE COARSE CRACKLES ON LEFT SIDE. HR BACK DOWN TO 80'S ONCE LYING IN BED. CALL LIGHT IN HAND AND BED ALARM ON.
--- NOTE | 2019-11-17 04:51 | NUR ---
PT UP SITTING AT EDGE OF BED SETTING OFF BED ALARM, FORGOT TO USE CALL LIGHT, UP TO BSC. PT STATES SHE IS FEELING "OKAY, MY HEAD FEELS HOT" DENIES SOB. OXYGEN SATURATIONS HAVE COME UP, NOW 98% ON 4L-WILL TITRATE O2 DOWN TO 2L. RESP RATE 16-20. ORAL TEMP TAKEN 98.3. PT HAD VOID ONLY, STATES "I MUST BE CONSTIPATED." BACK TO BED WITH BED ALARM ON AND REMINDER TO PLEASE USE CALL LIGHT AND NOT GET UP ON HER OWN.
--- NOTE | 2019-11-17 05:18 | NUR ---
UPDATE GIVEN TO DR WILKES. PT REMAINS ON ROOM AIR WITH SPO2 95%.
--- NOTE | 2019-11-17 07:30 | NUR ---
REPORT RECIEVED. PATIENT IS AWAKE DENIES PAIN.
--- NOTE | 2019-11-17 08:00 | NUR ---
ASSESSMENT DONE. UP TO BR TO VOID THEN TO CHAIR FOR BREAKFAST.
--- NOTE | 2019-11-17 10:00 | NUR ---
REMAINS IN CHAIR. STATES SHE IS COMFORTABLE IN CHAIR. IN GOOD SPIRITS. O2 TO 1 LITER NC.
--- NOTE | 2019-11-17 10:24 | NUR ---
CONTINUES TO SIT IN CHAIR.
--- NOTE | 2019-11-17 11:45 | NUR ---
DR. WILKES GIVEN CRITICAL LAB VALUES OF POSITIVE BLOOD CULTURES, GRAM NEG BACILLI IN ANAEROBIC BOTTLES.
--- NOTE | 2019-11-17 11:50 | NUR ---
O2 SAT 97-99 O2 TO RA.
--- NOTE | 2019-11-17 12:00 | NUR ---
ASSESSMENT DONE. PATIENT STATES SHE FEELS BETTER. DR. WILKES HERE EARLIER TO SEE PATIENT. ORDERS RECIEVED.
--- NOTE | 2019-11-17 12:05 | NUR ---
SITTING UP IN CHAIR EATING LUNCH.
--- NOTE | 2019-11-17 12:58 | NUR ---
PT SITTING IN CHAIR-ALERT, ORIENTED, WATCHING TV AND EATING LUNCH. PT SEEMS PLEASANT, MENTIONED THAT SHE IS FEELING BETTERWILL VISIT AGAIN, LET PT FINISH HER LUNCH. GAVE BLESSING
--- NOTE | 2019-11-17 13:20 | NUR ---
BACK TO BED WITH ASSIST. IS FAIRLY STABLE ON FEET. DENEIS SHORTNESS OF BREATH.
--- NOTE | 2019-11-17 15:00 | NUR ---
In and spoke with Yumiko and glo is neg. She is resting in bed. States she lives in [place] in a modular home. Daughter lives with her, but does not assist much. Friend of her son's, [place], assists her and is moving onto her property. She uses a cane, but feels she will be needing a walker. 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 Has applied for electicity assistance and heating through [employer] but was turned down. She has a ramp into her home, doesn't use. Pt. plans on dc to home on discharge. Will notify Home care nurses through [facility] on dc.
--- NOTE | 2019-11-17 17:40 | EKG ---
[facility] [address] [facility] [place] [address] Signed Sinus rhythm with occasional premature ventricular complexes and premature atrial complexes Left axis deviation Nonspecific intraventricular block T wave abnormality, consider lateral ischemia Abnormal ECG When compared with ECG of 16-NOV-2019 08:28, Sinus rhythm has replaced Atrial fibrillation QT has lengthened Confirmed by SIENNA WILKES DO ([id number]) on 11/17/2019 5:40:10 PM Electronically Signed By: SIENNA WILKES DO 11/17/19 1740 PATIENT NAME: ILYAKIMBERLEE Electrocardiogram DATE OF : 39 PHYSICIAN: SIENNA WILKES DO REPORT #: [id number] REPORT IS CONFIDENTIAL AND NOT TO BE RELEASED WITHOUT AUTHORIZATION
[2019-11-17] MEDS ORDERED: JANUMET 50-1,01 EACH PO (17:51)
[2019-11-17] MEDS ORDERED: SINGULAIR10 MG PO (17:51)
[2019-11-17] MEDS ORDERED: WARFARIN SODIU2.5 MG PO (17:52)
[2019-11-17] MEDS ORDERED: WARFARIN SODIUM1 MG PO (17:53)
--- NOTE | 2019-11-17 18:01 | NUR ---
TOOK DINNER WELL. TRANSFER ORDERS TO MED-SURG RECIEVED EARLIER. TELE #1 APPLIED.
[2019-11-17] MEDS ORDERED: ROBAFEN DM COU237 ML PO (18:04)
[2019-11-17] MEDS ORDERED: TYLENOL325 MG PO (18:05)
--- NOTE | 2019-11-17 18:05 | NUR ---
MED REC COMPLETE
--- NOTE | 2019-11-17 18:15 | NUR ---
TO MED-SURG VIA CHAIR. PATIENT IS ON TELE #1. REPORT TO SHERRELL JOSE.
--- NOTE | 2019-11-17 18:43 | NUR ---
REPORT RECEIVED FROM REBECA BRUSH. PT TRANSFERED TO MED SURG FLOOR. MADE COMFORTABLE IN CHAIR WITH TV REMOTE AND CALL LIGHT IN REACH. ON RA. SL. DENIES PAIN OR CONCERNS ATT.
--- NOTE | 2019-11-17 19:12 | NUR ---
RECEIVED REPORT FROM REBECA WYNNE. pt RESTING IN CHAIR. NO REQUESTS AT THIS TIME. CALL LIGHT WITHIN REACH. WHITEBOARD UPDATED.
--- NOTE | 2019-11-17 19:49 | NUR ---
SEEN PATIENT WALKING BY HERSELF TO THE BATHROOM. PATIENT IS BACK IN CHAIR. ALARM ON. CALL LIGHT IN REACH. PATIENT INSTRUCTED TO USE THE CALL BUTTON WHEN WANT TO GET UP. PATIENT UNDERSTOOD.
--- NOTE | 2019-11-17 21:55 | NUR ---
PT CALLED, NEEDED TO USE BATHROOM. SBA, FWW. PT STATES "I AM NOT USED TO USING THIS THING", INDICATING THE WALKER. BRUSHING TEETH PRIOR TO BED, CURTAINS DRAWN DOWN PER HER REQUEST.
--- NOTE | 2019-11-17 22:10 | NUR ---
pt UP TO TOILETSHANNAN RN IN ROOM ASSISTING. pt 1PA FWW TO BED. ASSESSMENT DONE. VITALS AND I&O RECORDED. MEDICATIONS GIVEN (SEE MAR). BLOOD SUGAR WITHIN RANGE. POSSESSIONS WITHIN REACH. pt RESTING IN BED WATCHING TV. NO REQUESTS AT THIS TIME. CALL LIGHT WITHIN REACH.
--- NOTE | 2019-11-18 00:20 | NUR ---
CALL LIGHT ON. JUNK REMOVAL SPECIALIST IN ROOM TO ASSIST pt TO TOILET.
--- NOTE | 2019-11-18 02:14 | NUR ---
PT CALLED, NEEDED TO USE BATHROOM. SBA WITH AMBULATION. INDEPENDENT INTO BED. CALL LIGHT WITHIN REACH.
--- NOTE | 2019-11-18 04:00 | NUR ---
pt UP TO VOID, SBA FWW. BACK TO BED. ASSESSMENT DONE. NO CHANGES. NO REQUESTS AT THIS TIME. CALL LIGHT WITHIN REACH.
--- NOTE | 2019-11-18 06:05 | NUR ---
pt AWAKE. UP TO VOID. WEIGHT TAKEN. VITALS AND I&O RECORDED. FRESH WATER PROVIDED. NO FURTHER REQUESTS. CALL LIGHT WITHIN REACH.
--- NOTE | 2019-11-18 07:14 | NUR ---
TELE ALARMED, AFIB HR BETWEEN 130 - 160. pt SITTING ON SIDE OF BED TRYING TO ORDER BREAKFAST. REPORTED "I CAN FEEL MY HEART BEAT, IT FEELS A LITTLE DIFFERENT, LIKE BEFORE" MD NOTIFIED, NEW ORDERS ENTERED. IV MEDS ADMINISTERED. DURING ADMINSTRATION pt REPORTED "MY HEART IS FEELING BETTER NOW" BLOOD PRESSURE 111/95, 1 MINUTE APICAL PULSE 118.
--- NOTE | 2019-11-18 07:44 | NUR ---
REPORT RECEIVED FROM REBECA LINARES. PT CURRENTLY IN AFIB. TOOK VERBAL ORDER FOR k+ AND MG REPLACEMENTS. PT ASYMPTOMATIC AND UP USING RESTROOM WITH RN JANNETTE BLANCO.
--- NOTE | 2019-11-18 10:08 | NUR ---
CHECKED ON PT AND SHE REPORTED FEELING WARM. TURNED DOWN THE HEAT IN ROOM AND WILL RECHECK. AFEBRILE. STILL IN AFIB WITH RATE OF 100
--- NOTE | 2019-11-18 10:49 | NUR ---
PT LAYING IN BED. TRIED TO ASSESS BP ON RIGHT ARM, FINALLY GOT IT 94\79, REASSESSED ON LEFT ARM 108/87. DENIES ABDOMINAL PAIN EVEN WHEN PALPATED.
--- NOTE | 2019-11-18 11:30 | NUR ---
Spoke with Yumiko. She has showered and is sitting on edge of bed. 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 States she will need a walker for home use and I will notify Dr. Davis. Feels she might be here for a while as she has increasing medical problems. Wants to go home on discharge.
--- NOTE | 2019-11-18 13:57 | NUR ---
STUDENT ASSESSED VS. PT REMAINS IN AFIB ALTHOUGH RATE SLOWER. PT TIRED AND WOULD LIKE TO TAKE A NAP. STATES SHE DOES FEEL BETTER THAN THIS MORNING.
--- NOTE | 2019-11-18 16:48 | NUR ---
IV amiodarone started, BP of 103/65 (73). HR of 113. Patient reports no s/s of dizziness or lightheadness currently. This RN in room during infusion.
--- NOTE | 2019-11-18 17:07 | NUR ---
IV amiodarone gtt started. HR of 99-134, BP of 96/67 (73). Patient denies dizziness or lightheadedness. Patient up to BSC with SBA.
--- NOTE | 2019-11-18 17:22 | NUR ---
Patient laying in bed watching tv. Converted to sinus rhythm. IV amiodarone continuing to infuse at 33 mls/hr.
--- NOTE | 2019-11-18 18:20 | NUR ---
Patient up to chair with 1PA. IV amiodarone gtt continuing at 33 mls/hr. BP of 129/79, HR in the 60's, sinus rhythm. Warm blankets provided. Patient watching tv, denies further needs. Call light within reach.
--- NOTE | 2019-11-18 20:05 | NUR ---
AWAKE ALERT. DENIES PAIN OR SOB. CONT ON AMIODERONE INFUSION. REMIANS SR. WILL OCC SIT AT BEDSIDE. REMINDED TO CALL IF NEEDING TO GET OOB. PT ASKING FOR INFORMATION ON SEPSIS. WILL GIVE HANDOUTS.
--- NOTE | 2019-11-18 21:22 | NUR ---
PT UP TO BSC WITH SBA, VOIDED 25ML AND HAD SMALL BM. RETURNED TO BED. UPDATED PRIMARY RN ANDRIY ABOUT OUTPUT.
--- NOTE | 2019-11-18 21:59 | NUR ---
SCANNED BLADDER WITH NO URINE SHOWING. DR WILKES AWARE.
--- NOTE | 2019-11-18 22:48 | NUR ---
C/O BEING NAUSEATED, GIVEN 4MG ZOFRAN IV. GIVEN COOL CLOTH. DID SPIT UP SOME SALIVA AND PHLEGM. FEELING A LITTLE BETTER.
--- NOTE | 2019-11-18 23:50 | NUR ---
PT IS SOMEWHAT RESTLESS, SITTING AT EDGE OF BED NOW. JUST CAN'T SETTLE, PT WONDERS IF IT IS DUE TO THE AMIODERONE. SIDE AFFECTS CAN INCLUDE DELIRUIM, CONFUSION. DR WILKES CALLED. ORDER RECEIVED FOR MELETONIN.
--- NOTE | 2019-11-19 00:24 | NUR ---
GIVEN 5MG MELETONIN PO FOR RESTLESSNESS AND SLEEP. GIVEN WARM BLANKET.
--- NOTE | 2019-11-19 01:15 | NUR ---
PT HAS NOT VOIDED, PER NURSING NOTIFY ORDER WILL GIVE 20MG LASIX IV.
--- NOTE | 2019-11-19 01:31 | NUR ---
IV SITE LAC LEAKED WHEN LASIX WAS GIVEN, DC'D.
--- NOTE | 2019-11-19 02:29 | NUR ---
STATES IS FEELING CALMER NOW. DID C/O SOME MUSCLE ACHING, GIVEN 500MG TYLENOL PO. UP TO BSC, VOIDED 10MG CONCENTRATED URINE. DID FEEL DIZZY WHILE UP. HR 60'S.
--- NOTE | 2019-11-19 04:00 | NUR ---
QUIETER NOW, POSS SLEEPING.
--- NOTE | 2019-11-19 05:24 | NUR ---
DR WILKES NOTIFIED THAT PT DID NOT RESPOND TO LASIX. 1L LR STARTED AT 250ML/HR. LAB IN TO DRAW.
--- NOTE | 2019-11-19 05:26 | NUR ---
ALSO TO HOLD THIS MORNINGS DOSE OF METOPROLOL.
--- NOTE | 2019-11-19 07:07 | NUR ---
STATES IS NAUSEATED THIS AM. NO NEED TO VOID. DR WILKES AWARE OF LACK OF URINE OUTPUT. WILL HOLD AM LASIX AND POTASSIUM.
--- NOTE | 2019-11-19 07:30 | NUR ---
PATIENT SHIFT REPORT RECIEVED FROM [employer] TEAM MEMBER RN. PER REPORT PATIENT HAD A ROUGH NIGHT AND VERY MINIMAL URINE OUTPUT PRESENT. MD WILKES DOWN HERE TO SEE PATIENT D/T SOME LAB RESULTS THAT WERE OUT OF RANGE AND PATIENTS INABILITY TO URINATE. PATIENT GIVEN AMP D50 AND WILL BE STARTED ON BICARB WELL. PER MD PATIENT WILL BE TRANSFERED OUT. AMNIODORONE GTT STOPPED PRIOR TO SHIFT CHANGE.
--- NOTE | 2019-11-19 07:34 | NUR ---
DR WILKES IN DEPT AND AWARE OF LABS. IS ALSO AWARE OF AMIODERONE BEING INFUSED TO QUICKLY. PHARMACY AWARE.
--- NOTE | 2019-11-19 08:09 | NUR ---
TRANSFER PACKET COMPLETE. WAITING FOR BED SPACE CONFIRMATION FROM [facility]. [facility] CONFIRMED BY THIS RN.
--- NOTE | 2019-11-19 08:17 | NUR ---
CRITICAL TROPONIN OF 0.[address] WILKES.
--- NOTE | 2019-11-19 08:17 | NUR ---
[facility] CONTACTED. ARRIVAL ETA 22 MIN.
--- NOTE | 2019-11-19 08:22 | NUR ---
CRITICAL LACTIC OF 9.[address] WILKES.
--- NOTE | 2019-11-19 08:30 | NUR ---
PATIENTS BLOOD SUGAR WAS LOW THIS AM. PATIENT WAS ASYMPTOMATIC WITH BLOOD SUGAR, BUT PER MD PATIENT WAS GIVEN AN AMP OF D50. ON RECHECK PATIENTS BLOOD SUGAAR WAS 187. NO CORRECTIONAL INSULIN GIVEN AT THIS TIME D/T PATIENT WILL BE TRANSFERING AND WONT GET TO EAT PRIOR TO TRANSFER. PATIENT IS DOING WELL AT THIS TIME. PATIENT WILL BE TRANSFERED TO [facility] FOR CONTINUED TREATMENT D/T WORSENING OF CARDIAC SYSTEM, KIDNEYS, AND LIVER. PATIENT IS AGREEABLE TO PLAN OF CARE. PATIENT DENIES SOB, CHEST PAIN, NAUSEA, AND DIZZINESS. PATIENT DENIES ANY FURTHER NAUSEA AFTER ZOFRAN THIS AM. WILL PLACE GATICA PER MD WILKES REQUESTS TO HAVE INSERTED PER ACCEPTING MD AT [place]. STARTED 2 NEW IVS FIRST THING THIS AM FOR BETTER ACCESS. PATIENT TOELRATED WELL. PATIENT ASSESSMENT COMPLETED. PATIENT ALERT AND ORIENTED, BUT A LITTLE FORGETFUL AT TIMES. PATIENT BREATH SOUNDS ARE CLEAR. NO SOB, BOWEL TONES ACTIVE. NO TENDERENESS NOTED IN THE ABD REGION. NO EDEMA NOTED. PULSES WEAK. SOCKS PLACED PER REQUEST. VITALS COMPLETED. WILL CONTINUE TO CLOSELY MONITOR.
--- NOTE | 2019-11-19 08:50 | NUR ---
PER MD PATIENT MAY EAT PRIOR TO DISCHARGE, SO PATIENT ATE A FEW BITES OF HER BREAKFAST. GATICA CATHETER WAS PLACED WITH NO ISSUES. 40MLS OF DARK URINE PRESENT. [facility] SHOULD BE HERE ANY TIME TO TRANSFER PATIENT. WILL CONTINUE TO CLSOELY MONITOR.
--- NOTE | 2019-11-19 09:10 | NUR ---
[facility] ARRIVED AROUND 0850 AND LEFT AT 0905 WITH PATIENT. WILL CALL RN AT [facility] TO GIVE REPORT. ALL BELONGINGS SENT WITH PATIENT. NO OTHER NEEDS AT THIS TIME.
--- NOTE | 2019-11-19 09:30 | NUR ---
REPORT CALLED TO RN AT [facility]. UPDATED ON PATIENTS ASSESSMENT AND PLAN OF CARE. UPDATED ON PATIENTS LABS, INTAKE AND OUTPUT, VITAL SIGNS, EKG, ECHO, AND PLAN OF CARE FOR PATIENT AT THIS TIME. UPDATED THAT PATIENT WILL BE ARRIVING VIA [facility]. ALL BELONGINGS SENT WITH PATIENT. ALL QUESTIONS ANSWERED. NO OTHER NEEDS AT THIS TIME.
--- NOTE | 2019-11-19 15:42 | EKG ---
[facility] [address] [place] [address] Signed Sinus bradycardia Left axis deviation Nonspecific intraventricular block Abnormal ECG When compared with ECG of 16-NOV-2019 23:26, Significant changes have occurred Confirmed by JORGE ALBERTO SHRESTHA MD ([id number]) on 11/19/2019 3:42:30 PM Electronically Signed By: JORGE ALBERTO SHRESTHA MD 11/19/19 1542 PATIENT NAME: KIMBERLEE CARABALLO Electrocardiogram DATE OF : 39 PHYSICIAN: JORGE ALBERTO SHRESTHA MD REPORT #: [id number] REPORT IS CONFIDENTIAL AND NOT TO BE RELEASED WITHOUT AUTHORIZATION
== END 2019-11-19 09:05 | disposition short-term general hospital (02) | DRG 871 ==
LOC: ED 18:12 → CCU 20:00 → MS 11-17 17:44 → CCU 11-18 16:30
PROVIDERS: ADMIT Student in an Organized Health Care Education/Training Program
PROC: 3E033XZ Introduction of Vasopressor into Peripheral Vein, Percutaneous Approach (ICD-10-PCS; principal; 2019-11-15)
PROC: 8E0ZXY6 Isolation (ICD-10-PCS; 2019-11-15)
DX: A41.51 Sepsis due to Escherichia coli [E. coli] (principal); J18.9 Pneumonia, unspecified organism; R65.21 Severe sepsis with septic shock; I50.23 Acute on chronic systolic (congestive) heart failure; I21.A1 Myocardial infarction type 2; N17.9 Acute kidney failure, unspecified; I11.0 Hypertensive heart disease with heart failure; E11.9 Type 2 diabetes mellitus without complications; E78.5 Hyperlipidemia, unspecified; F17.200 Nicotine dependence, unspecified, uncomplicated; I48.91 Unspecified atrial fibrillation; E80.6 Other disorders of bilirubin metabolism; I27.20 Pulmonary hypertension, unspecified; I08.1 Rheumatic disorders of both mitral and tricuspid valves; Z20.828 Contact with and (suspected) exposure to other viral communicable diseases; Z66 Do not resuscitate; Z88.0 Allergy status to penicillin; Z88.1 Allergy status to other antibiotic agents; Z88.8 Allergy status to other drugs, medicaments and biological substances; Z79.84 Long term (current) use of oral hypoglycemic drugs; Z79.82 Long term (current) use of aspirin; Z79.891 Long term (current) use of opiate analgesic; Z79.899 Other long term (current) drug therapy
CPT/HCPCS: 36415; 51700; 51702; 51798; 71045; 80048; 80053; 81001; 82728; 83605; 83735; 83880; 84484; 85025; 85379; 86140; 93005; 93010; 93306; 94760; 97162; 97165; 97530; 97535; 99285-25; J0282; J0610; J0696; J1650; J1815; J1940; J2370; J2405; J3475; J7030; J7060; J7070; J7121; Q9957; U0002

== ENCOUNTER 2020-01-23 17:27 | Emergency (ER) | payer MEDICARE, OTHER ==
[~2020-01-23] VITALS: Ht 152.4 cm; Wt 65.3 kg
--- OUTSIDE RECORDS SUMMARY | ~2020-01-23 | XMS | Encounter Summary ---
Demographics + + + | Address | [address] | | | [place] [address] | + + + | Home Phone | | + + + | Preferred Language | Unknown | + + + | Marital Status | | + + + | Christian Affiliation | Unknown | + + + | Race | Unknown | + + + | Ethnic Group | Unknown | + + + Author + + + | Author | [facility] | | | and [place] | + + + | Organization | [facility] | | | and [place] | + + + | Address | Unknown | + + + | Phone | Unavailable | + + + Support + + + + + | Name | Relationship | Address | Phone | + + + + + | Lopez Cueto | ECON | Unknown | | + + + + + | Mimi Bauman | ECON | [place], | | | | | [place] [address] | | + + + + + | Linda Roman | ECON | Unknown | | + + + + + Care Team Providers + +------+ + | Care Presiding Judge Name | Role | Phone | + +------+ + | Alyssa Joseph | PCP | | + +------+ + Reason for Visit Auth/Cert +--------+--------+ + + + + | Status | Reason | Specialty | Diagnoses / | Referred By | Referred To | | | | | Procedures | Contact | Contact | +--------+--------+ + + + + | | | | | | | +--------+--------+ + + + + Encounter Details +--------+ + + + + | Date | Type | Department | Care Team | Description | +--------+ + + + + | 12/03/ | Home Care | [facility] | Dru Conn, | PT REPEAT VISIT | | 2020 | Visit | [place] [address] | [facility] [address] | | | | | [place], [place] | | | | | [address] | [address] | | | | | [phone] | | | +--------+ + + + + Social History + + + +--------+ + | Tobacco Use | Types | Packs/Day | Years | Date | | | | | Used | | + + + +--------+ + | Former Smoker | Cigarettes | 0.2 | 40 | Quit: 04/17/2014 | + + + +--------+ + + +---+---+---+ | Smokeless Tobacco: | | | | | Never Used | | | | + +---+---+---+ + + +---------+ + | Alcohol Use | Drinks/Week | oz/Week | Comments | + + +---------+ + | Yes | 0 Standard drinks | 0.0 | 1-2 times monthly | | | or equivalent | | | + + +---------+ + + + + | Sex Assigned at | Date Recorded | | | | + + + | Not on file | | + + + documented as of this encounter Last Filed Vital Signs + + + + + | Vital Sign | Reading | Time Taken | Comments | + + + + + | Blood Pressure | - | - | | + + + + + | Pulse | - | - | | + + + + + | Temperature | 36.6 C (97.8 F) | 12/04/2019 12:01 PM | | | | | PDT | | + + + + + | Respiratory Rate | - | - | | + + + + + | Oxygen Saturation | - | - | | + + + + + | Inhaled Oxygen | - | - | | | Concentration | | | | + + + + + | Weight | - | - | | + + + + + | Height | - | - | | + + + + + | Body Mass Index | - | - | | + + + + + documented in this encounter Miscellaneous Notes Home Health - Dru Conn, [facility] - 12/04/2019 11:57 AM PDT1) Are you or anyone you live with experiencing any of the following symptoms? no Fever Cough - New or changed Shortness of breath or difficulty breathing- New or changed Chills Repeated shaking with chills Muscle pain- New onset Headache Sore throat New loss of taste or smell 2) If yes, who is experiencing symptoms? 3) Have you or anyone in your household been tested and have results pending or have been d iagnosed with COVID-19? No 4) If visiting a health care facility, is the facility experiencing a COVID-19 outbreak? No 5) Have you had close contact with someone tested for or diagnosed with COVID-19 in the las t 30 days? No 6) Have you or anyone you have had close contact with traveled outside of your state in the last 30 days? No Screening is: Negative Clinician prompt: Per CDC Guidelines, positive screen for countries that have a Level 3 Travel Health Notice: [place]: [place], [place], [facility] ([facility] Area): [place], [place], [place], [place], [place], [place], [place] , [place], [place], [place], [place], [place], [place], [place], [place], [place], [place], [place], [place], [place], [place], [place], [place], [place], [place], [place], [place], [place], [facility] [place] and [place]: [place], [place], [place], [place], [place] Indicate positive screen if: Answer to any question 1-5 is yes or answer to question 6 indicates travel to a Level 3 josh tination. Consult with account manager prior to visit. Subjective: pt up walking without assistive device at therapist arrival. Pt tolerated milena tment today with good response to interventions . Pt reports she feels she is doing well, camacho s been doing more around home and feeling better, pr agreeable to [place]. Objective: instructed and performed: Pt education: -safety: Instructed in the following home safety modifications and equipment use: use AD at all times when up/ambulating, remove all throw rugs and clear pathways. Gait training: Therapist educated pt on appropriate AD use given noted deficits and impairm ents. Instructed pt with gait for 4x100 feet on even surfaces, completed task with beatriz avila. Therapist gave VC for improved postural mechanics and normalized loading mechanics thr ough ankles and hips. notes ongoing deficits: pt safety with inconstant use of assistive de vice, that will continue to be addressed in future visits. Transfer and bed mobility training: instructed pt on corrected sit to stand mechanics inclu ding appropriate timing and amplitude of forward wt shift at initiation, avoiding posterior support on legs, and completion of stance with adequate hip extension to align pelvis and sp ine for optimal stability and function. There ex: Therapist performed progressive resistance exercises in standing: ankle PF/DF, h ip add/abd/flexion and mini squats. Therapist adjusted difficulty by changing position relat justina to gravity and use of therabands/manual resistance as indicated to allow pt to complete 12-15 reps to simulate ~60% of 1 RM for gentle strengthening with respect to OA and comordit ies. Individual exercises continuously adjusted to pt tolerance. Verbal and tactile cues giv en for form as needed. Assessment: Has ongoing impairments, functional mobility constraints, and/or situational d ynamics that need to be addressed in continued skilled therapy including safety concerns wi th consistent use of assistive device and clutter reduction to improve safety. Progress to saleh goals with good progress with tolerance to activity, gait duration, and functional mobi lity. documented in this encounter Plan of Treatment +--------+---------+ + + + | Date | Type | Specialty | Care Team | Description | +--------+---------+ + + + | 01/26/ | Office | Sleep Medicine | Amy Jiang | | 2019 | Visit | | [facility] [address] | | | | | | [address] | | | | | | [place] [address] | | | | | | [phone] | | | | | | | | +--------+---------+ + + + documented as of this encounter Visit Diagnoses Not on filedocumented in this encounter Home Health Visit - Care Plan + + | Visit Type - PT - REPEAT VISIT | | Discipline - Physical Therapy | + + + + +--------+--------+ + + | Problem | Description | Start | Status | Goals | Interventio | | | | Date | | | ns | + + +--------+--------+ + + | HH PT IMPAIRED | Impaired gait | | | 1 goal | 1 goal | | GAIT Disciplines: | | | Active | linked to | interventio | | Physical Therapy | | 020 | | scheduled/d | n | | | | | | ocumented | scheduled/d | | | | | | interventio | ocumented | | | | | | n | in this | | | | | | | visit | + + +--------+--------+ + + | HH PT IMPAIRED | Impaired strength | | | 1 goal | 1 goal | | STRENGTH | | | Active | linked to | interventio | | Disciplines: | | 020 | | scheduled/d | n | | Physical Therapy | | | | ocumented | scheduled/d | | | | | | interventio | ocumented | | | | | | n | in this | | | | | | | visit | + + +--------+--------+ + + | HH PT IMPAIRED | Impaired transfers | | | 1 goal | 1 goal | | TRANSFERS | | | Active | linked to | interventio | | Disciplines: | | 020 | | scheduled/d | n | | Physical Therapy | | | | ocumented | scheduled/d | | | | | | interventio | ocumented | | | | | | n | in this | | | | | | | visit | + + +--------+--------+ + + | HH SHARED FALLS | Falls | | | 1 goal | 1 goal | | Disciplines: | | | Active | linked to | interventio | | Physical Therapy, | | 020 | | scheduled/d | n | | Occupational Therapy | | | | ocumented | scheduled/d | | | | | | interventio | ocumented | | | | | | n | in this | | | | | | | visit | + + +--------+--------+ + + + + +--------+-------+ + | Goal | Associated Problem | Outcom | Goal | Visit Notes | | | | e | Met? | | + + +--------+-------+ + | HH PT GAIT/STAIRS | HH PT IMPAIRED | | No | | | Description: The | GAIT | | | | | patient will | | | | | | ambulate 500 feet or | | | | | | greater on level | | | | | | and unlevel surfaces | | | | | | using LRAD | | | | | | independently by | | | | | | December 22. OUTCOMES: | | | | | | The patient will be | | | | | | able to safely | | | | | | ambulate to/from car | | | | | | and outbuildings on | | | | | | her property. 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 The age | | | | | | related norms for 5x | | | | | | sit to stand are: | | | | | | age 60-69=11.4 sec; | | | | | | 70-79 =12.6; | | | | | | 80-89=14.8. | | | | | | Individuals who | | | | | | exceed these times | | | | | | have been shown to | | | | | | demonstrate worse | | | | | | than average | | | | | | physical | | | | | | performance. | | | | | + + +--------+-------+ + | HH PT TRANSFERS | HH PT IMPAIRED | | No | | | Description: The | TRANSFERS | | | | | patient will perform | | | | | | independent | | | | | | transfers for all | | | | | | household surfaces | | | | | | using LRAD by December | | | | | | . Outcomes: The | | | | | | patient will reach | | | | | | maximal independence | | | | | | and safety with | | | | | | transfers to/from | | | | | | the all necessary | | | | | | household surfaces | | | | | + + +--------+-------+ + | HH FALL PREVENTION | HH SHARED FALLS | | No | | | UNDERSTANDING | | | | | | Description: The | | | | | | patient and/or | | | | | | caregiver will | | | | | | verbalize | | | | | | understanding of | | | | | | fall prevention | | | | | | strategies. | | | | | + + +--------+-------+ + + + +--------+--------+ + | Intervention | Associated | Status | Varian | Visit Notes | | | Problem/Goal | | ce | | + + +--------+--------+ + | Pt gait training | Problem: HH PT | | | | | Description: | IMPAIRED GAITGoal: | Comple | | | | Evaluate and | HH PT GAIT/STAIRS | jayden | | | | instruct patient | | | | | | and/or caregiver in | | | | | | gait training using | | | | | | 4-wheeled walker or | | | | | | LRAD no weight | | | | | | bearing | | | | | | restrictions. | | | | | + + +--------+--------+ + | PT therapeutic | Problem: HH PT | | | | | exercise | IMPAIRED | Comple | | | | Description: | STRENGTHGoal: HH PT | jayden | | | | Evaluate and | STRENGTH | | | | | instruct the patient | | | | | | and/or caregiver | | | | | | and provide home | | | | | | exercise program to | | | | | | restore maximal | | | | | | functional strength. | | | | | + + +--------+--------+ + | PT transfer | Problem: PT | | | | | training | IMPAIRED | Comple | | | | Description: | TRANSFERSGoal: PT | jayden | | | | Evaluate and | TRANSFERS | | | | | instruct patient | | | | | | and/or caregiver in | | | | | | safe transfers using | | | | | | appropriate body | | | | | | mechanics and | | | | | | necessary equipment. | | | | | + + +--------+--------+ + | Instruct in Fall | Problem: SHARED | | | | | Prevention | FALLSGoal: FALL | Comple | | | | Description: | PREVENTION | jayden | | | | Instruct the patient | UNDERSTANDING | | | | | and/or caregiver in | | | | | | fall prevention | | | | | | strategies. | | | | | + + +--------+--------+ + documented in this encounter"
--- OUTSIDE RECORDS SUMMARY | ~2020-01-23 | XMS | Encounter Summary ---
Demographics + + + | Address | [address] | | | [place] [address] | + + + | Home Phone | | + + + | Preferred Language | Unknown | + + + | Marital Status | | + + + | Caodaism Affiliation | Unknown | + + + | Race | Unknown | + + + | Ethnic Group | Unknown | + + + Author + + + | Author | [facility] | | | and [place] | + + + | Organization | [facility] | | | and [...] + | Mimi Bauman | ECON | [address] [place], | | | | | [place] [address] | | + + + + + | Linda Roman | ECON | Unknown | | + + + + + Care Team Providers + +------+ + | Care Taste Tester Name | Role | Phone | + +------+ + PCP | Unavailable | + +------+ + Encounter Details +--------+ + + + + | Date | Type | Department | Care Team | Description | +--------+ + + + + | 02/05/ | Hospital | [facility] | Lena Villafana | | | 2011 | Encounter | [facility] | MD [address] | | | | | GENERIC CONV DEPT | [address] | | | | | [address] | [place] [address] | | | | | [place], [place] | [phone] | | | | | [address] | | | | | | [phone] | | | +--------+ + + + [...] + + documented as of this encounter H&P Notes Lena Villafana MD - 04/21/2013 6:55 PM PST PATIENT NAME: KIMBERLEE PEGUERO 76Y / F DATE OF : 1935 ADMISSION DATE: 02/06/2012 [id number] / [id number] ADMITTING DIAGNOSIS: High-grade vaginal dysplasia. HISTORY OF PRESENT ILLNESS: Kimberlee Peguero is a 76-year-old woman who has had abnormal Pap sm ears dating back at least to 1998, and recently she has had high-grade Pap smear with vagin al wall biopsy revealing SOSA-II to III. She is here for consideration of treatment options. PAST MEDICAL/SURGICAL HISTORY: 1. Coronary artery disease. 2. Diabetes. 3. Obesity. 4. Hyperlipidemia. 5. Angioplasty with stent of the LAD in 1996. 6. Hysterectomy and bilateral salpingo-oophorectomy in 1982 for an enlarged uterus. ALLERGIES: No known drug allergies. CURRENT MEDICATIONS: 1. Aspirin 81 mg daily. 2. Onglyza 5 mg daily. 3. Glipizide 10 mg b.i.d. 4. Loratadine 10 mg daily. 5. Benicar 40 mg daily. 6. Metformin 25 mg t.i.d. 7. Metoprolol daily. 8. Amlodipine 5 mg at bedtime. 9. Glucosamine. 10. Calcium. 11. Multivitamin. 12. B complex. GYNECOLOGIC HISTORY: Menarche, age 15; four pregnancies, her children are from the age of 39 through 54. She went through menopause and is on no hormone therapy. FAMILY HISTORY: Her mother at the age of 80. No cancer. Father in 80s. Also no c ancer. She has no brothers or sisters. REVIEW OF SYSTEMS: CONSTITUTIONAL: The patient gets headaches occasionally and fatigue. ENT: Positive for noreen e glaucoma and hearing problems. CARDIOVASCULAR: Negative for palpitations or chest pain. KIMBERLEE PEGUERO ADM: [id number] [facility] HISTORY & PHYSICAL [id number] [facility] Lena Villafana MD E-Sign: [facility] THIS REPORT IS CONFIDENTIAL AND NOT TO BE RELEASED WITHOUT PROPER AUTHORIZATION. [facility] RESPIRATORY: Negative for wheezing. She has shortness of breath with activity probably bec ause of her weight. HEMATOLOGIC: Negative. GASTROINTESTINAL: Negative for abdominal discomfort. No diarrhea or constipation. She has never had a colonoscopy. MUSCULOSKELETAL: Positive for neck pain, back pain and muscle weakness from deconditioning . NEUROPSYCHIATRIC: She does have stress at work. GENITOURINARY: Positive for some urinary incontinence. History of HPV. REPRODUCTIVE: Negat justina for vaginal bleeding. BREASTS: Negative for nipple discharge or masses. She had a mammogram six months ago, whic h was normal. 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 She [place] [employer] [place] She does not currently smoke cigarettes. S he quit about 10 years ago. Previously she used to smoke 10 cigarettes a week times 30 to 4 0 years. No alcohol use. No recreational drugs. PHYSICAL EXAMINATION: VITAL SIGNS: Weight 194.8. Heart rate 60. Temperature is 98.3. Blood pressure 144/76. Hear t rate 79. Respiratory rate 16. GENERAL: This is a pleasant-appearing female in no distress. HEAD: Normocephalic, atraumat ic. NECK: Thyroid smooth. LYMPH: No supraclavicular, posterior cervical or inguinal lymphadenopathy. CARDIAC: Regular rate and rhythm. No murmurs. LUNGS: Clear to auscultation bilaterally. No wheezes or crackles. Good inspiratory effort. ABDOMEN: Moderately obese, soft, nontender, nondistended. No hepatosplenomegaly. GENITOURINARY: External genitalia normal appearing. The urethra is normal. The vaginal muc marty is evaluated with colposcopy and there is diffuse acetowhite pattern seen on the mucosa . No masses, no friability or bleeding and nothing that looks like cancer. She does have a moderate amount of vaginal wall prolapse. EXTREMITIES: Lower extremities are without edema. NEUROLOGIC: Nonfocal. IMPRESSION: VAIN-III PLAN: Kimberlee is certainly familiar with dysplasia. She has had it for many KIMBERLEE PEGUERO ADM:02/06/12 [id number] [facility] HISTORY [facility] PHYSICAL [phone] [facility] Lena Villafana MD E-Sign: [facility] THIS REPORT IS CONFIDENTIAL AND NOT TO BE RELEASED WITHOUT PROPER AUTHORIZATION. [facility] years and, in fact, she states that she has had 5-FU chemotherapy treatments vaginally in the past. She had this in what she thinks is the s and it resulted in severe discomfort a nd burning of her vulva. I explained what vulvar vaginal and cervical dysplasia is. I mat my usual diagrams. I dis cussed the natural progression of the disease in that one-third of patient's will have no c hange, one-third will naturally resolve and one-third will progress to a higher lesion. Unf ortunately, because she has a high-grade lesion, if it does progress, it could become an i nvasive cancer, and we treat everybody with a high-grade lesion with ablative or excisional procedure because we do not know which patients are going to be in the group that progress es. I explained that I would either offer a second course of vaginal 5-FU therapy versus CO 2 laser ablation. After discussing both techniques at length, Kimberlee would like to proceed with the CO2 laser. I am able to get her onto my operating room schedule tomorrow. She want s to proceed. We talked about the risks of surgery, such as bleeding, infection, vaginal dr sesay and discomfort and she does want to proceed with the ablation. Lena Villafana MD P P MKS/dlb #[id number] cc: Lena Villafana MD Electronically Signed 02/10/12 1891 Lena Villafana MD EMELY PEGUERO ADM:02/06/12 [id number] [facility] PHYSICAL [phone] [facility] Lena Villafana MD E-Sign: [facility] THIS REPORT IS CONFIDENTIAL AND NOT TO BE RELEASED WITHOUT PROPER AUTHORIZATION.Electronica lly signed by Lena Villafana MD at 04/21/2013 8:19 PM PSTdocumented in this encounter Miscellaneous Notes Miscellaneous - Lena Villafana MD - 04/21/2013 6:[address] [facility]-OPER[facility] CASE INFORMATION Patient: KIMBERLEE PEGUERO MR#: [id number] Acct: [id number] : 1935 AGE: 76 SEX: F CRURN: [id number] EAR FLAP BINDER'S PRE-OPERATIVE ASSESSMENT Preferr ed Name: KIMBERLEE Patient Identified: Y Consent Verfied: Y Procedure & Site Verified: Y By entering inf ormation in the [facility] Protocol Section, you will be verifying the Correct Patient Iden tity, Correct Side and Site, Agreement on the Procedure's to be done, Correct patient Posit ion, Availability of correct implants and any special equipment or special requirements* Time out? Y Time of Time out: 913 Site(s): VAGINAL All participating team members: KEVIN VILLAFANA EVANS, PROCUNIER, SCOTT Patient Loc pre-Op: Awake & Oriented Patient Loc pre-Op: Alert Methods of Patient Identification: Armband Identificatio n Methods of Patient Identification: MD Identification of Pt Methods of Patient Identification: Verbal ID with Patient Allergi es Identified Pre-op: NKA History and Physical: Present & Reviewed Comments: NPO Status: NPO 8 Hrs or greater Comments: Lab Work: Present & Reviewed Blood Products Available: Not A pplicable Comment: Belongings: Not Applicable Disposition: Limitations: NA Prosthesis: CARDIAC STENT Pre-Operative Checklist Comments: Pre-Operative Assessmen t Reviewed/ Verified by: Bruno Rowley RN INTRA-OPERATIVE INFORMATION Date of Surgery: 02/06/2012 OR Suite: [place] [address] Case Type: ELECTIVE Pre-Op Diagnosis: VA IN Post-Op Diagnosis: SAME SURGEON(S) & ASST(S) PROCEDURE DESCRIPTION Surgeon 1: Lena Villafana CO2 LASER VAGINA PHYSICIAN/SURGEON ASSISTANTS/PRIVATE SCRUBS ANESTHESIA INFORMATION MDA: Beatrice Peterson TRANSPORTATION PLANNING TECHNICIAN: Harry Gallagher CRNA [place] Type: Monitored CASE CHRONOLOGY Time in Room: 1008 Incision: 1017 End of Surgery: 1031 Wound Class: 02 Time out of Room: 1039 Pre-Op Antibiotic Ordered: Y IV Antibiotic: ANCEF Dose: 1 GM Time: 1010 OR STAFF Bruno Rowley RN 1st Sandblast Carver Cookie Dumont 1st Scrub Kanika Viveros RN Box Stamper Temperature Control Methods [facility]-OPER[facility]IVE CASE INFORMATION Patient: KIMBERLEE PEGUERO MR#: [id number] Acct: [id number] : 1935 AGE: 76 SEX: F CRURN: [id number] Warm Blankets Device ID: Initial Skin Integrity WNL: Y Position 1 Devices Used Lithoto my PAL Stirrups Armboards OR Staff Denise v. Staff Other Bruno Rowley Mela ni [facility] Tourniquets Used: N Anti-embolitic Therapy Used: N Electrosurgical Devices Used: N Urinary Catheter Inserted in OR:N Urinary Cathether in Place on Arrival:N Clipper Prep in O.R.: N Surgical Prep: Y Site: Vagin al & Perineal Prep Solution: By: Vinegar Comment: PER DR. KEYANNA BRITO OR Sterilization/Disinfection Methods Use d: N Field Irrigations/Medications: Y Allergies: NKA Irrigation Amount Normal Saline 500 Medications Added NA Medications (Non-Irrigation): Y Drug Route Amount LIDOCA INE On Surgical field 1% NONE USED ACETIC ACID 3% On Surgical field 60 ML'S Comment: SILVADENE OINTMENT 30 G MS VAGINA See Medication Administration Record: N Specimens: N Implants: N Tissue solution used:NA LOT# Tissue prepared by:NA Intra-operative X-Rays: N Drains: N Post Closure Care Packi ng: N Dressing: N Splint/Immobilizer/Casti ng: Not Applicable Cell Saver Used: N Counts Applicable: Y Count Type Result RN Scrub INITIA L COUNT Done Bruno Rowley RN, Judy A FINAL COUNT Correct Bruno Rowley RN, Judy A Surgeon Notified of Count R esults: Y [facility] CASE INFORMATION Patient: KIMBERLEE PEGUERO MR#: [id number] Acct: [id number] : 1935 AGE: 76 SEX: F CRURN: [id number] Patient Transferred Pos t-op to: PACU Phase II Mode: Stretcher Aids: Oxygen Nasal Cannula Skin Condition Unchanged from Pre-op: Y Comment: Patient Belongings: Not Applicable CASE COMMENTS All e lds reviewed and updated as necessary. Y end of document Pedro terry signed by Lena Villafana MD at 04/21/2013 8:18 PM PSTOp Note - Lena Villafana MD - 04/21/2013 6:54 PM PST PATIENT NAME: KIMBERLEE PEGUERO Date of : 1935 Age/Sex: 76Y / F SURGEON: Lena Villafana MD SURGERY DATE: 02/06/2012 [id number] / [id number] TELEGRAPHIC TYPEWRITER OPERATOR: None. PREOPERATIVE DIAGNOSIS: Vaginal dysplasia, high grade. POSTOPERATIVE DIAGNOSIS: Vaginal dysplasia, high grade. OPERATION PERFORMED: CO2 laser of the vagina. ANESTHESIA: General. BLOOD LOSS: None. BRIEF HISTORY: Kimberlee has a history of dysplasia dating back to 1998. She recently had a bi opsy showing a high-grade lesion on the vaginal wall. She was counseled as to options for t reatment and has decided upon CO2 laser. INTRAOPERATIVE FINDINGS: Upon performing colposcopy to the vaginal wall, there were still some acetowhite changes seen, no obvious mosaicism or lesions consistent with cancer. The e ntire vaginal vault and sidewalls were lasered without difficulty. PROCEDURE: The patient was taken to the operating room, and under general endotracheal ane sthesia, she was placed in a dorsal lithotomy position with PALS stirrups. She was prepped and draped with vinegar-soaked Ray-Alva sponges to allow visualization of the dysplastic are as with the colposcope. The colposcope was set up and then the laser was tested. Using a co ntinuous setting of 12 ray, vaporization was performed of the vaginal mucosa to a depth of 3 mm. The speculum was rotated 180 degrees, and the anterior and posterior krishnan had la ser vaporization as well. The speculum was removed. A Q-Tip dipped in vinegar was used to evaluate the area. There was no bleeding. Some Silvadene was placed on the mucosa, and the procedure was terminated. The patient was allowed to awaken in the operating suite. She was returned to the recovery room in stable condition. Lena Villafana MD EMELY PEGUERO ADM:02/06/12 [id number] [facility] OPERATIVE REPORT [id number] [facility] Lena Villafana MD E-SIGN: [facility] THIS REPORT IS CONFIDENTIAL AND NOT TO BE RELEASED WITHOUT PROPER AUTHORIZATION. [facility] A P MKS/lar #[id number] cc: Lena Villafana MD Electronically Signed 02/10/12 1315 Lena Villafana MD EMELY PEGUERO A ADM:02/06/12 [id number] [facility] OPERATIVE REPORT [id number] [facility] Lena Villafana MD E-SIGN: [facility] THIS REPORT IS CONFIDENTIAL AND NOT TO BE RELEASED WITHOUT PROPER AUTHORIZATION.Electronica lly signed by Lena Villafana MD at 04/21/2013 8:17 PM PSTdocumented in this encounter Plan of Treatment +--------+---------+ + + + | Date | Type | Specialty | Care Team | Description | +--------+---------+ + + + | 01/26/ | Office | Sleep Medicine | Amy Jiang | | | 2019 | Visit | | [place] [address] | | | | | | [place] | | | | | | [place] [address] | | | | | | [phone] | | | | | | | | +--------+---------+ + + + documented as of this encounter Procedures + +--------+ + + + | Procedure Name | Priori | Date/Time | Associated Diagnosis | Comments | | | ty | | | | + +--------+ + + + | POC GLUCOSE | Routin | 02/06/2012 | | Results for this | | | e | 9:22 AM | | procedure are in the | | | | PDT | | results section. | + +--------+ + + + documented in this encounter Results POC Glucose (02/06/2012 9:22 AM PDT) + +---------+ + + + | Component | Value | Ref Range | Performed | Pathologist | | | | | At | Signature | + +---------+ + + + | Glucose, | 133 (H) | 65 - 99 mg/dL | [facility] | | | [facility] | | | | | | [facility] | | | | | | LABORATORY | | + +---------+ + + + + + | Specimen | + + | | + + + + + + + | Performing | Address | City/State/Zipcode | Phone Number | | Organization | | | | + + + + + | [facility] | [address] | [place] [address] | | | [facility] | | | | | LABORATORY | | | | + + + + + | [place] | | | | | [facility] | | | | | LABORATORY | | | | + + + + + documented in this encounter Visit Diagnoses Not on filedocumented in this encounter"
--- OUTSIDE RECORDS SUMMARY | ~2020-01-23 | XMS | Encounter Summary ---
Demographics + + + | Address | [address] | | | [place] [address] | + + + | Home Phone | | + + + | Preferred Language | Unknown | + + + | Marital Status | | + + + | Taoism Affiliation | Unknown | + + + | Race | Unknown | + + + | Ethnic Group | Unknown | + + + Author + + + | Author | [facility] | | | and [place] | + + + | Organization | [facility] | | | and [...] [place], | | | | | [place] [address] | | + + + + + | Linda Roman | ECON | Unknown | | + + + + + Care Team Providers + +------+ + | Care Cement Or Concrete Finishing Supervisor Name | Role | Phone | + +------+ + | Alyssa Joseph | PCP | | + +------+ + Reason for Visit + +--------+ + | Reason | Onset | Comments | | | Date | | + +--------+ + | Hospital Follow-up | 11/25/ | | | | 2020 | | + +--------+ + Encounter Details +--------+ + + + + | Date | Type | Department | Care Team | Description | +--------+ + + + + | 11/25/ | Telephone | [facility] | Carolyn Crockett MD | Hospital Follow-up | | 2019 | | Internal Medicine | [address] | | | | | [facility] [address] | [place] | | | | | [address] [place] | [address] | | | | | [address] | | | | | | [phone] | | | +--------+ + + + [...] + + documented as of this encounter Miscellaneous Notes Telephone Encounter - Eliane Hernandez RN - 11/26/2019 1:33 PM PDTFollow up phone call jes martinez, but there was no answer. 1:3 3 PM PDTdocumented in this encounter Plan of Treatment +--------+---------+ + + + | Date | Type | Specialty | Care Team | Description | +--------+---------+ + + + | 01/26/ | Office | Sleep Medicine | Amy Jiang | | | 2020 | Visit | | [place] [address] | | | | | | [place] | | | | | | [place] [address] | | | | | | [phone] | | | | | | | | +--------+---------+ + + + documented as of this encounter Visit Diagnoses Not on filedocumented in this encounter"
--- OUTSIDE RECORDS SUMMARY | ~2020-01-23 | XMS | Encounter Summary ---
Demographics + + + | Address | [address] | | | [place] [address] | + + + | Home Phone | | + + + | Preferred Language | Unknown | + + + | Marital Status | | + + + | Sikhism Affiliation | Unknown | + + + | Race | Unknown | + + + | Ethnic Group | Unknown | + + + Author + + + | Author | [facility] | | | and [place] | + + + | Organization | [facility] | | | and [...] + | Mimi Bauman | ECON | [place], | | | | | [place] [address] | | + + + + + | Linda Roman | ECON | Unknown | | + + + + + Care Team Providers + +------+ + | Care Mid Level Developer Name | Role | Phone | + +------+ + PCP | Unavailable | + +------+ + Encounter Details +--------+ + + + + | Date | Type | Department | Care Team | Description | +--------+ + + + + | 10/28/ | Hospital | [facility] | | | | 2011 | Encounter | MED CTR XRAY [address] | | | | | | [address] | | | | | | [place] [address] | | | | | | [phone] | | | +--------+ + + + [...] as of this encounter Plan of Treatment +--------+---------+ + + + | Date | Type | Specialty | Care Team | Description | +--------+---------+ + + + | 01/26/ | Office | Sleep Medicine | Amy Jiang | | | 2019 | Visit | | [place] [address] | | | | | | [place] | | | | | | [place] [address] | | | | | | [phone] | | | | | | | [...] Performed At | + + + | [facility] | [facility] | | [address] [facility] | [facility] | | ULTRASOUND OF THE GALLBLADDER: | [...] | | | Transcribed Date/Time: 10/29/2011 13:53 [employer] Tire And Tubes Supervisor: | | | <Electronically Signed by Ever Can MD> 059 | | + + + + + | Procedure Note | + + | Jason, Rad Conversion - 07/24/2013 5:19 PM [facility] | | Diagnostic Imaging Department [address] [place] [address] | | ULTRASOUND OF THE GALLBLADDER: 10/29/2011 [...] | | Signed by Ever Can MD> 10/29/112108 | | | |Pancreas as visualized is [...] 13:45 | |Transcribed Date/Time: 10/29/2011 13:53 | |[employer] T[employer] Supervisor: ANDREW | |<Electronically Signed by Ever Can MD> 10/29/112108 | + + + +---------+ + + | Performing | Address | City/State/Zipcode | Phone Number | | Organization | | | | + +---------+ + + | [place] | | | | | [facility] | | | | + +---------+ + + documented in this encounter Visit Diagnoses Not on filedocumented in this encounter"
--- OUTSIDE RECORDS SUMMARY | ~2020-01-23 | XMS | Encounter Summary ---
Demographics + + + | Address | [address] | | | [place] [address] | + + + | Home Phone | | + + + | Preferred Language | Unknown | + + + | Marital Status | | + + + | Mandaeism Affiliation | Unknown | + + + | Race | Unknown | + + + | Ethnic Group | Unknown | + + + Author + + + | Author | [facility] | | | and [place] | + + + | Organization | [facility] | | | [...] [place], | | | | | [place] [address] | | + + + + + | Linda Roman | ECON | Unknown | | + + + + + Care Team Providers + +------+ + | Care Motorbike Courier Name | Role | Phone | + +------+ + | Eva An MD | PCP | | + +------+ + Reason for Visit +--------+ + | Reason | Comments | +--------+ + | Other | Mitral valve regurg-severe per echo 09/26/14, CAD & A-fib | +--------+ + Evaluate & Treat (Routine) +--------+--------+ + + + + | Status | Reason | Specialty | Diagnoses / | Referred By | Referred To | | | | | Procedures | Contact | Contact | +--------+--------+ + + + + | Closed | | Cardiology | Diagnoses | Alqaisi, | [facility] | | | | | Mitral | MD Bryan | Cardiology | | | | | valve | [address] [place] | | | | | disorders([address] | [address] | [address] | | | | | 4.0) | [place], | [address] | | | | | Procedures | [place] [address] | [place] | | | | | SUPERVISOR ELECT[employer] MOTOR TESTING consult | Phone: | [phone] | | | | | | [phone] | Phone: | | | | | | Fax: | [phone] | | | | | | [phone] | Fax: | | | | | | | [phone] | +--------+--------+ + + + + Encounter Details +--------+---------+ + + + | Date | Type | Department | Care Team | Description | +--------+---------+ + + + | 02/24/ | Office | [facility] | Faith Aguayo | Atrial fibrillation, | | 2015 | Visit | [facility] | MD [address] | unspecified (HCC) | | | | [address] | [address] | (Primary Dx); | | | | [address] [place] | [place] [address] | Coronary artery | | | | [address] | [phone] | disease involving | | | | [phone] | | [place] coronary | | | | | | artery without | | | | | | angina pectoris; | | | | | | Mitral regurgitation | +--------+---------+ + + + Social History + + [...] + + + documented in this encounter Progress Notes Faith Aguayo MD - 02/24/2015 9:43 AM PDT PATIENT NAME: Yumiko Peguero : 1935: AGE: 79 y.o. PRIMARY CARE: Eva An MD CHIEF COMPLAINT: Chief Complaint Patient presents with Other Mitral valve regurg-severe per echo 09/26/14, CAD & A-fib CURRENT ASSESSMENT AND PLAN Mitral regurgitation Here to discuss mitraclip therapy for severe MR. She is currently well compensated with no evidence of CHF and has good exercise tolerance. I do not think that she would meet criter ia for mitraclip given her relatively healthy status. I explained the options of open repai r, vs robotic repair, vs CABG + valve repair. Before making that decision it needs to be de termined if she would benefit from revascularization of her occluded LAD. To that end I wou ld recommend a viability study. If there is no viability in the LAD territory then surgical consultation to decide if she is robotic candidate. Recommend: She should undergo viability study, then surgical consultation Current medical management is appropriate Coronary artery disease involving [place] coronary artery without angina pectoris Feels much better since Cx stented; able to walk the hallways at school without dyspnea for the first time that she can recall. No chest discomfort. It remains to be seen if there is potential benefit of revascularization of her LAD. As st ated above I recommend a viability study FOLLOWUP No Follow-up on file. MEDICATION ADJUSTMENTS New Prescriptions No medications on file There are no discontinued medications. NEW ORDERS Orders Placed This Encounter Procedures ECG 12 lead HISTORY OF PRESENT ILLNESS 79 y.o. year old female presenting for consideration of mitraclip therapy. She has known C AD and is s/p remote stent of LAD. She presented to [facility] in 09/2014 with CHF and NSTEMI. HTC revealed a chronically occluded LAD and high grade Cx which was stented. She h ad moderate disease of the RCA with FFR measured at 0.87. She was also found to have occlus ion of the right subclavian artery. Initial EF was 25-30%, this improved to 40-45% when ch ecked 2 months ago. She was noted to have severe mitral regurgitation with moderate pulmona ry HTN at that time. She states that she is feeling very well. She is able to undertake ac tivties now that previously were prohibited by dyspnea. She denies any symptoms suggesting orthopnea or PND. Her level of energy is better than it was prior to her event 6 months ago . MEDICAL, SURGICAL, AND PERSONAL HISTORY Past Medical, Surgical, Family, and Social History are reviewed in EPIC. CURRENT MEDICATIONS Outpatient Encounter Prescriptions as of 02/24/2015 Medication Sig Dispense Refill aspirin 81 MG EC tablet Take 1 tablet by mouth Daily. atorvaSTATin (LIPITOR) 40 mg tablet Take 1 tablet by mouth nightly. Calcium Carb-Cholecalciferol (CALCIUM 600 + D PO) Take 1 tablet by mouth 2 times daily. clopidogrel (PLAVIX) 75 mg tablet Take 1 tablet by mouth Daily. fluticasone (FLONASE) 50 mcg/nasal spray 1 spray by Nasal route as needed for Allergies . fluticasone (FLOVENT HFA) 44 mcg/puff inhaler Inhale 1 puff into the lungs as needed. furosemide (LASIX) 40 mg tablet Take 1 tablet by mouth Daily. glipiZIDE (GLUCOTROL XL) 10 MG 24 hr tablet Take 1 tablet by mouth 2 times daily. Wtwwdheydpp-Lscjevgbg-Fhf C-Mn (GLUCOSAMINE CHONDR 500 COMPLEX PO) Take 1 tablet by julia th Daily. glucose 4 G chewable tablet Take 4 g by mouth as needed for Low blood sugar. losartan (COZAAR) 100 MG tablet Take 1 tablet by mouth Daily. metFORMIN (GLUCOPHAGE) 500 mg tablet Take 2 tablets by mouth Daily. metoprolol succinate (TOPROL-XL) 100 mg ER tablet Take 1 tablet by mouth Daily. nitroglycerin (NITROSTAT) 0.[address] 1 tablet under the tongue every 5 (fiv e) minutes as needed for Chest pain. potassium chloride (K-DUR) 20 mEq ER tablet Take 1 tablet by mouth Daily. saxagliptin (ONGLYZA) 5 mg TABS tablet Take 1 tablet by mouth Daily. warfarin (COUMADIN) 2.5 mg tablet As directed No facility-administered encounter medications on file as of 02/24/2015. Please note [facility] has a flaw in which medication corrections are listed as if they were disc ontinued at the time of the visit. I did not "discontinue" any the above medications unless noted in my assessment and plan; rather the patient was either not on these medications upon arrival today or I made refills or dose adjustments as otherwise noted. ALLERGIES Allergies Allergen Reactions Amoxicillin Itching Azithromycin Itching Clavulanic Acid Other (See Comments) Unknown Clindamycin Itching Penicillins Itching Review of Systems HENT: Positive for hearing loss and tinnitus. Endo/Heme/Allergies: Positive for environmental allergies and polydipsia. Bruises/bleeds ea sily. All other systems reviewed and are negative. PHYSICAL EXAM BP 124/76 mmHg | Pulse 67 | Ht 1.549 m (5' 1") | Wt 78.472 kg (173 lb) | BMI 32.70 kg/m2 Body mass index is 32.7 kg/(m^2). GENERAL: Pleasant, well appearing woman HEENT: The oropharynx and conjunctivae are clear. Mucous membranes moist. EEOMI. NECK: Supple. Carotids are 2+ and brisk bilaterally without bruits. CHEST: Good inspiratory effort with no crackles, ronchi, or wheezes. CARDIAC: RRR 2/6 HSM no rub or gallop ABDOMEN: Obese,soft, non-tender, nondistended with normal, active bowel sounds. Cannot hea r abdominal aorta EXTREMITIES: No clubbing, cyanosis, or edema. PULSES: Right: radial 2+DP 2+ Left: radial 2+, DP 2+ NEUROLOGIC: Alert and oriented 3/3, Mood and affect are normal SKIN: No rashes or skin breakdown. MUSCULOSKELETAL: normal ambulation LABS Lab Results Component Value Date WBC 7.9 02/05/2012 HGB 13.7 02/05/2012 HCT 41.0 02/05/2012 PLT 257 02/05/2012 NA 140 02/05/2012 K 3.5 02/05/2012 CL 103 02/05/2012 CREA 0.68 02/05/2012 BUN 9 02/05/2012 CO2 30 02/05/2012 EKG: NSR 67, LBBB, Anterior and lateral Tw inversions Thank you for allowing me to participate in the care of this patient. If you have any ques tions, please do not hesitate to contact me. Signed by: Faith Aguayo MD, [facility] 02/24/2015, 11:10 documented in this encounter Procedure Notes Rubina Diehl CMA - 02/24/2015 9:33 AM PDTAssociated Order(s): ECG 12 LEAD - PBProced ure(s): ECG 12 LEAD - PBPre-Procedure Diagnose(s): Atrial fibrillation, unspecified; Koehler ry artery disease involving [place] coronary artery without angina pectorisSee daniel hanley for the provider's interpretation of EKG. documented in this encounter Miscellaneous Notes Assessment & Plan Note - Faith Aguayo MD - 02/24/2015 11:03 AM PDTAssociated Problem (s): Coronary artery disease involving [place] coronary artery without angina pectorisFeels m uch better since Cx stented; able to walk the hallways at school without dyspnea for the fir st time that she can recall. No chest discomfort. It remains to be seen if there is potential benefit of revascularization of her LAD. As st ated above I recommend a viability studyElectronically signed by Faith Aguayo MD at 11:03 AM PDTAssessment & Plan Note - Faith Aguayo MD - 02/24/2015 11:01 AM P DTAssociated Problem(s): Mitral regurgitationHere to discuss mitraclip therapy for severe MR . She is currently well compensated with no evidence of CHF and has good exercise tolerance . I do not think that she would meet criteria for mitraclip given her relatively healthy st atus. I explained the options of open repair, vs robotic repair, vs CABG + valve repair. B efore making that decision it needs to be determined if she would benefit from revasculariza tion of her occluded LAD. To that end I would recommend a viability study. If there is no viability in the LAD territory then surgical consultation to decide if she is robotic candid ate. Recommend: She should undergo viability study, then surgical consultation Current medical management is appropriate documented in this encounter Plan of Treatment +--------+---------+ + + + | Date | Type | Specialty | Care Team | Description | +--------+---------+ + + + | 01/26/ | Office | Sleep Medicine | Amy Jiang | | | 2020 | Visit | | [place] [address] | | | | | | [address] | | | | | | [place] [address] | | | | | | [phone] | | | | | | | | +--------+---------+ + + + documented as of this encounter Procedures + +--------+ + + + | Procedure Name | Priori | Date/Time | Associated Diagnosis | Comments | | | ty | | | | + +--------+ + + + | ECG 12 LEAD - PB | Routin | 02/24/2015 | Atrial | Results for this | | | e | 9:33 AM | fibrillation, | procedure are in the | | | | PDT | unspecified (HCC) | results section. | | | | | Coronary artery | | | | | | disease involving | | | | | | [place] coronary | | | | | | artery without | | | | | | angina pectoris | | + +--------+ + + + | ECG - EXTERNAL SCAN | | 02/24/2015 | | | | | | 12:00 AM | | | | | | PDT | | | + +--------+ + + + documented in this encounter Results ECG 12 lead (02/24/2015 9:33 AM PDT) + + + | Narrative | Performed At | + + + | Rubina Diehl CMA 02/24/2015 9:33 See scanned tracing for | | | the provider's interpretation of EKG. | | + + + documented in this encounter Visit Diagnoses + + | Diagnosis | + + | Atrial fibrillation, unspecified - Primary | + + | Coronary artery disease involving [place] coronary artery without angina pectoris | + + | Mitral regurgitation Mitral valve disorders | + + documented in this encounter
--- OUTSIDE RECORDS SUMMARY | ~2020-01-23 | XMS | Encounter Summary ---
Demographics + + + | Address | [address] | | | [place] [address] | + + + | Home Phone | | + + + | Preferred Language | Unknown | + + + | Marital Status | | + + + | Uatsdin Affiliation | Unknown | + + + | Race | Unknown | + + + | Ethnic Group | Unknown | + + + Author + + + | Author | [facility] | | | and [place] | + + + | Organization | [facility] | | | [...] [place], | | | | | [place] [address] | | + + + + + | Linda Roman | ECON | Unknown | | + + + + + Care Team Providers + +------+ + | Care Golf Course Laborer Name | Role | Phone | + +------+ + | Alyssa Joseph | PCP | | + +------+ + Reason for Referral Diagnostic/Screening (Routine) + +--------+ + + + + | Status | Reason | Specialty | Diagnoses / | Referred By | Referred To | | | | | Procedures | Contact | Contact | + +--------+ + + + + | Authorized | | Radiology | Diagnoses | | [facility] Echo | | | | | Atrial | Eliseenbaugh, | Pshi Document Review Specialist | | | | | fibrillation | Canelo C, | [address] | | | | | with RVR | MD [address] | | | | | (HCC) | [address] | [address] | | | | | Procedures | [address] [place] | | | | | ECHO | [place] | [place], [place] | | | | | Complete | [address] | [address] | | | | | echo and MULTIPLE RESAW OPERATOR | Phone: | Phone: | | | | | EP Consult | [phone] | [phone] | | | | | -- | Fax: | Fax: | | | | | | [phone] | [phone] | + +--------+ + + + + Encounter Details +--------+ + + + + | Date | Type | Department | Care Team | Description | +--------+ + + + + | 11/24/ | Orders Only | [facility] | Marie, | Atrial fibrillation | | 2019 | | CARDIOLOGY [place] | Canelo Arce MD [address] | with RVR (HCC) | | | | [address] | [address] | (Primary Dx) | | | | [address] | [address] [place] | | | | | [place] | [id number] | | | | | [address] | | | | | | [phone] | | | +--------+ + + + [...] documented as of this encounter Progress Notes Cassie Crowley RN - 11/25/2019 8:51 AM PDTFormatting of this note might be different fro m the original. Message Received: Yesterday Message Contents Canelo Salazar MD [facility] Cardiology Team k; Emi Batista RN Hello Team K and Emi, Please get this patient a consult with Dr. York in about 6 weeks. The arrhythmia departm [facility] is mailing her an MCT monitor, so it would be nice if he could see her after that 30-day monitor is done. She likely will need a OR ASSISTANT pacemaker. She will need a repeat echocardi ogram as well, and she is coming all the way from [place], [place], so it would be nice to set up with the echo the day she sees Dr. York before she sees him. Thanks, Canelo Salazar MD, [facility] Echo order placed docu mented in this encounter Plan of Treatment +--------+---------+ + + + | Date | Type | Specialty | Care Team | Description | +--------+---------+ + + + | 01/26/ | Office | Sleep Medicine | Jiang, Amy | | | 2019 | Visit | | [place] [address] | | | | | [address] | | | | | | [place] [address] | | | | | | [phone] | | | | | | | | +--------+---------+ + + + + + +--------+ + + | Name | Type | Priori | Associated Diagnoses | Order Schedule | | | | ty | | | + + +--------+ + + | ECHO Complete | Echocardiog | Routin | Atrial | Expected: 11/25/2019 | | | anthony | e | fibrillation with | (Approximate), | | | | | RVR (HCC) | Expires: 11/24/2022 | + + +--------+ + + documented as of this encounter Visit Diagnoses + + | Diagnosis | + + | Atrial fibrillation with RVR ([facility]) - Primary Atrial fibrillation | + + documented in this encounter"
--- OUTSIDE RECORDS SUMMARY | ~2020-01-23 | XMS | Encounter Summary ---
Demographics + + + | Address | [address] | | | [place] [address] | + + + | Home Phone | | + + + | Preferred Language | Unknown | + + + | Marital Status | | + + + | Congregational Affiliation | Unknown | + + + | Race | Unknown | + + + | Ethnic Group | Unknown | + + + Author + + + | Author | [facility] | | | and [place] | + + + | Organization | [facility] | | | [...] [place], | | | | | [place] [address] | | + + + + + | Linda Roman | ECON | Unknown | | + + + + + Care Team Providers + +------+ + | Care Snow Shoveler Name | Role | Phone | + +------+ + | Eva An MD | PCP | | + +------+ + Encounter Details +--------+ + + + + | Date | Type | Department | Care Team | Description | +--------+ + + + + | 11/22/ | Orders Only | [facility] | Marie, | Atrial fibrillation | | 2019 | | CARDIOLOGY [place] | Canelo Arce MD [address] | with RVR (HCC) | | | | [address] | [address] [place] [address] [address] | (Primary Dx) | | | | [address] | [address] [place], [place] | | | | | [place], [place] | [id number] | | | | | [address] | | | | | | [phone] | | | +--------+ + + + [...] | | | | | [place] [address] | | | | | | [phone] | | | | | | | | +--------+---------+ + + + documented as of this encounter Results [facility] Mobile Cardiac Telemetry (12/30/2019 2:12 PM PDT) + + | Specimen | + + | | + + + + --+ | Narrative | Performed At | + + --+ | PATIENT NAME: | [facility]ing | | Yumiko Peguero : 1935: AGE: 84 y.o.PRIMARY CARE | | | PROVIDER: AMRIT Herbert PROVIDER: Canelo Jordan | | | MD Marie [facility] Cardiovascular Telemetry Report Setup Date: | | | November 2019 Clinical Indications:Unspecified atrial fibrillation | | | Findings:The patient's monitoring period was 11/27/2019 - 12/26/2019. | | | Baseline sample showed Sinus Rhythm with a heart rate of 70.1 bpm. | | | There were 3 critical, 1 serious, and 4 stable events that occurred. | | | Conclusions:1. The patient had the monitor from 11/27/2019 until | | | 12/26/2019. Asymptomatic baseline transmission showed sinus rhythm | | | with heart rate 70 bpm.2. On 12/04/2019 in the taxonomy teacher hours | | | when the patient was probably sleeping, there were 3 pauses of 4.0, | | | 3.5, and 3.1 seconds in the midst of the patient being in course | | | atrial fibrillation. A. fib rates were in the 110 | | | | | | 130 range around that time.3. On 12/06/2019, there was another | | | episode of atrial fibrillation with heart rate 130 bpm, and again on | | | 12/06. Least one strip showing atrial flutter occurred on 12/06 as | | | well.4. No symptoms reported, so it appears that none of these | | | events were symptomatic.5. Two runs of nonsustained VT lasting 6 | | | beats were seen on 12/08.6. No further pauses were seen after the | | | patient's metoprolol dose was decreased on 12/07. Electronically Signed | | | by:Canelo Salazar MD, [facility]01/01/2020 3:32 PM PDT | | |the patient being in course atrial fibrillation. A. fib rates were in the | | |110 130 range around that time. | | |3. On 12/06/2019, there was another episode of atrial fibrillation with | | |heart rate 130 bpm, and again on 12/06. Least one strip showing atrial | | |flutter occurred on 12/06 as well. | | |4. No symptoms reported, so it appears that none of these events were | | |symptomatic. | | |5. Two runs of nonsustained VT lasting 6 beats were seen on 12/08. | | |6. No further pauses were seen after the patient's metoprolol dose was | | |decreased on 12/07. | | | | | |Electronically Signed by: | | |Canelo Salazar MD, [facility] | | |01/01/2020 3:32 PM PDT | | + + --+ + +---------+ + + | Performing | Address | City/State/Zipcode | Phone Number | | Organization | | | | + +---------+ + + | [facility] | | | | + +---------+ + + Mobile Cardiac Telemetry Sherri (11/24/2019 9:50 AM PDT) + + | Specimen | + + | | + + + + + | Narrative | Performed At | + + + | The patient was fitted with a holter/event monitor today while in | [facility] | | clinic. The patient was given instructions on how to return the | | | monitor for interpretation. | | + + + + +---------+ + + | Performing | Address | City/State/Zipcode | Phone Number | | Organization | | | | + +---------+ + + | [facility] | | | | + +---------+ + + documented in this encounter Visit Diagnoses + + | Diagnosis | + + | Atrial fibrillation with RVR ([facility]) - Primary Atrial fibrillation | + + documented in this encounter"
--- OUTSIDE RECORDS SUMMARY | ~2020-01-23 | XMS | Encounter Summary ---
Demographics + + + | Address | [address] | | | [place] [address] | + + + | Home Phone | | + + + | Preferred Language | Unknown | + + + | Marital Status | | + + + | Buddhism Affiliation | Unknown | + + + | Race | Unknown | + + + | Ethnic Group | Unknown | + + + Author + + + | Author | [facility] | | | and [place] | + + + | Organization | [facility] | | | [...] [place], | | | | | [place] [address] | | + + + + + | Linda Roman | ECON | Unknown | | + + + + + Care Team Providers + +------+ + | Care Industrial Engineering Intern Name | Role | Phone | + [...] Home Care | [facility] [place] | Renetta Lopez, PT | CASE COMMUNICATION | | 2020 | Visit | [place] [address] | | | | | | [address] [place] | | | | | | [address] | | | | | | [phone] | | | +--------+ + + + [...] | | | | | [place] [address] | | | | | | [phone] | | | | | | | | +--------+---------+ + + + documented as of this encounter Visit Diagnoses Not on filedocumented in this encounter"
--- OUTSIDE RECORDS SUMMARY | ~2020-01-23 | XMS | Encounter Summary ---
Demographics + + + | Address | [address] | | | [place] [address] | + + + | Home Phone | | + + + | Preferred Language | Unknown | + + + | Marital Status | | + + + | Yazdanism Affiliation | Unknown | + + + | Race | Unknown | + + + | Ethnic Group | Unknown | + + + Author + + + | Author | [facility] | | | and [place] | + + + | Organization | [facility] | | | [...] [place], | | | | | [place] [address] | | + + + + + | Linda Roman | ECON | Unknown | | + + + + + Care Team Providers + +------+ + | Care Alpine Guide Name | Role | Phone | + +------+ + | Alyssa Joseph | PCP | | + +------+ + Reason for Referral Home Health Care (Routine) +--------+ + + + + + | Status | Reason | Specialty | Diagnoses / | Referred By | Referred To | | | | | Procedures | Contact | Contact | +--------+ + + + + + | Closed | Specialty | Home Health | Diagnoses | [place], | Prov [facility] | | | Services | Services | Acute | [place] | [place] | | | Required | | kidney | MD Damien | [address] | | | | | injury (ROSALVA) | [address] | [facility] | | | | | with acute | [address]VE [place] | [facility] [place] | | | | | tubular | [place] | [address] | | | | | necrosis | [id number] | Phone: | | | | | (ATN) ([facility]) | Phone: | [phone] | | | | | Atrial | [phone] | Fax: | | | | | fibrillation | Fax: | [phone] | | | | | with RVR | [phone] | | | | | | (HCC) | | | | | | | Bradycardia | | | | | | | Coronary | | | | | | | artery | | | | | | | disease | | | | | | | involving | | | | | | | little shell tribe | | | | | | | coronary | | | | | | | artery of | | | | | | | little shell tribe heart | | | | | | | without | | | | | | | angina | | | | | | | pectoris | | | | | | | Ischemic | | | | | | | cardiomyopat | | | | | | | hy Septic | | | | | | | shock (HCC) | | | | | | | Shock liver | | | | | | | Type 2 | | | | | | | diabetes | | | | | | | mellitus | | | | | | | with other | | | | | | | specified | | | | | | | complication | | | | | | | , without | | | | | | | long-term | | | | | | | current use | | | | | | | of insulin | | | | | | | (HCC) | | | | | | | Mitral valve | | | | | | | | | | | | | | insufficienc | | | | | | | y, | | | | | | | unspecified | | | | | | | etiology | | | | | | | Procedures | | | | | | | 11/25/19 SN | | | | | | | PT OT RT | | | +--------+ + + + + + Reason for Visit Auth/Cert +--------+--------+ + + + + | Status | Reason | Specialty | Diagnoses / | Referred By | Referred To | | | | | Procedures | Contact | Contact | +--------+--------+ + + + + | | | | Diagnoses | | | | | | | Severe | | | | | | | sepsis | | | +--------+--------+ + + + + Encounter Details +--------+ + + + + | Date | Type | Department | Care Team | Description | +--------+ + + + + | 11/18/ | Hospital | [facility] | Madison Satrk MD | Mitral valve | | 2019 - | Encounter | [facility] | [address] | insufficiency, | | | | [facility] [address] | [place] [address] | unspecified etiology | | 11/23/ | | [address] [place], | [phone] | (Primary Dx); Acute | | 2019 | | [place] [address] | | kidney injury (ROSALVA) | | | | [phone] | [place] | with acute tubular | | | | | MD Damien [address] | necrosis (ATN) | | | | | [address] [place] | (HCC); Atrial | | | | | [place] [address] | fibrillation with | | | | | [phone] | RVR (HCC); | | | | | | Bacteremia due to | | | | | Carolyn Crockett MD | Escherichia coli; | | | | | [address] | Bradycardia; | | | | | [place] | Coronary artery | | | | | [address] | disease involving | | | | | | little shell tribe coronary | | | | | | artery of little shell tribe | | | | | | heart without angina | | | | | | pectoris; | | | | | | Hyperkalemia; | | | | | | Ischemic | | | | | | cardiomyopathy; | | | | | | Metabolic acidosis; | | | | | | Prolonged Q-T | | | | | | interval on ECG; | | | | | | Septic shock ([facility]); | | | | | | Shock liver; Type 2 | | | | | | diabetes mellitus | | | | | | with other specified | | | | | | complication, | | | | | | without long-term | | | | | | current use of | | | | | | insulin (HCC) | +--------+ + + + + Social [...] + + + | Blood Pressure | 163/92 | 11/24/2019 7:00 AM | | | | | PDT | | + + + + + | Pulse | 67 | 11/24/2019 7:00 AM | | | | | PDT | | + + + + + | Temperature | 36.2 C (97.2 F) | 11/24/2019 7:00 AM | | | | | PDT | | + + + + + | Respiratory Rate | 18 | 11/24/2019 7:00 AM | | | | | PDT | | + + + + + | Oxygen Saturation | 97% | 11/24/2019 7:00 AM | | | | | PDT | | + + + + + | Inhaled Oxygen | - | - | | | Concentration | | | | + + + + + | Weight | 68.4 kg (150 lb 12 | 11/24/2019 2:00 AM | | | | oz) | PDT | | + + + + + | Height | 142.2 cm (4' 8") | 11/19/2019 10:21 AM | | | | | PDT | | + + + + + | Body Mass Index | 33.8 | 11/19/2019 10:21 AM | | | | | PDT | | + + + + + documented in this encounter Discharge Summaries Neeru Ndiaye RN - 11/24/2019 12:59 PM PDTPatient cleared for d/c. Medications sent and f naida and [facility] outpatient pharmacy, lovenox injection education completed and patient demons trated how to do a SQ injection herself with saline. PIV removed, belongings collected, d/c instructions given and questions answered. Electronically signed by: Neeru Ndiaye RN 020 1:02 PM Carolyn Young MD - 0 11/24/2019 9:23 AM PDT [facility] Patient: Yumiko Peguero Date of : 1935 PCP: REBECCA Herbert Admit Date: 11/19/2019 Discharge Date: 11/24/2019 Date of Service: 11/24/2019 Issues Requiring Follow Up after Discharge: 1) Repeat CMP at follow-up visit in 1-2 weeks, if LFT's normalized can restart Atorvastatin . If still elevated, would wait until normal before restarting. 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 York (Electrophy siology) 5) Avoid Sudafed and other stimulant type medications 6) Continue full dose lovenox bridge until warfarin therapeutic >2 Follow Up Appointments: [facility] [address] [place] [address] Alyssa Joseph, CUTTING MACHINE TENDER [address] [facility] [place] [id number] You will be called by your primary care provider's office to schedue your follow up appoint ment. Johana Garcia arranging their follow-up Discharge Disposition: Home with Home Health Consultants This Admission: Cardiology - [facility] Hospital Course: 83 yo female with h/o NIDDM, ischemic cardiomyopathy with EF 25-30% by TTE 2014, severe german ral regurgitation, CAD with prior PCI x2, and atrial fib who presented to [facility] in [facility] on 11/14 with productive cough and fever/chills, found to be in septic sh ock 07/19 presumed PNA and almonte-sensitive Ecoli bacteremia (repeat bcx 11/16 negative). UA was un remarkable for infection. CXR showed ?right lung base prominence - artifact vs early infiltr ate. Admitted to the ICU and required brief pressor support. Was started on CTX/azithromycin . COVID negative. Initial TNI and EKG negative. BNP was >700, lactate 4. Course complicated by afib with RVR which spontaneously converted to SR with treatment of sepsis and resuming h ome metoprolol. She was noted to have a 9 second pauses while in afib. TTE showed EF 25%, un changed from prior. She was started on eliquis. On 11/16, she developed SOB with concern for volume overload on imaging so was diuresed. She did have mild TNI bump to 0.08. On 11/17, she went back into afib RVR, treated with amiodarone bolus which resulted in bradycardia (HR range 50s-70s). Overnight she was noted to have dec reased UOP (documented 45 cc only but no shea was in place for more accurate measurements) and on 11/18, labs notable for worsening transaminitis with AST 1500, ALT 1000 (pt had elevate d LFTs on admit which had improved with treatment of sepsis), Cr 1.6 from 0.8 the day prior, bicarb 12 and potassium 5.9. EKG without peaked T-waves but did show QTc 601 ms and QRS 152 ms. She was given calcium gluconate and started on a bicarb gtt. Transfer to [facility] for highe level of care. Dr. York ([place] [facility]) was called given pt's h/o ICM, afib, 9 second pause, accepti ng the patient for transfer and agreed with cardiology consultation on arrival. After the patient's transfer to [facility] she continued to improve on a d aily basis. Her shock liver transaminitis resolved, her acute kidney injury resolved, and h er hypoxia resolved. She was treated for 7 days of IV ceftriaxone following her repeat nega tive blood culture from the outside facility on 11/17/2019 for complete course of antibiotics for her bacteremia. Cardiology was consulted and started her on a low-dose beta-mima and restarted her ARB a s well as her warfarin. Her rate has been well controlled with no further pauses. [place] [facility] will send the patient an outpatient mobile cardiac telemetry as well as follow-up with Dr. York as an outpatient to reassess for MATTRESS SPECIALIST pacer/defibrillator in the future. Home health has been ordered and she is discharged home with daughter in stable condition. Discharge Diagnoses: Active Hospital Problems Diagnosis Septic shock Bacteremia due to Escherichia coli Bradycardia Ischemic cardiomyopathy Atrial fibrillation with RVR Shock liver Type 2 diabetes mellitus Prolonged Q-T interval on ECG Coronary artery disease involving little shell tribe coronary artery of little shell tribe heart without angina pectoris Metabolic acidosis Mitral regurgitation Resolved Hospital Problems Diagnosis Acute kidney injury (ROSALVA) with acute tubular necrosis (ATN) Hyperkalemia Discharge Exam: Temp: [36.2 C (97.1 F)-37 C (98.6 F)] 36.2 C (97.2 F) Pulse: [63-77] 67 Resp: [17-18] 18 BP: (134-165)/(71-92) 163/92 SpO2: 97 % on room air Physical Exam Constitutional: General: She is not in acute distress. Appearance: Normal appearance. She is not ill-appearing or diaphoretic. HENT: Head: Normocephalic and atraumatic. Nose: No congestion. Mouth/Throat: Mouth: Mucous membranes are moist. Pharynx: No oropharyngeal exudate. Eyes: Extraocular Movements: Extraocular movements intact. Neck: Musculoskeletal: Neck supple. Cardiovascular: Rate and Rhythm: Normal rate and regular rhythm. Heart sounds: Murmur (loud systolic) present. Pulmonary: Effort: Pulmonary effort is normal. No respiratory distress. Breath sounds: Normal breath sounds. No wheezing. Abdominal: General: Abdomen is flat. Bowel sounds are normal. There is no distension. Palpations: Abdomen is soft. Tenderness: There is no abdominal tenderness. Musculoskeletal: Right lower leg: Edema (2+ bilat) present. Left lower leg: Edema present. Skin: General: Skin is warm and dry. Findings: No rash. Neurological: General: No focal deficit present. Mental Status: She is alert and oriented to person, place, and time. Psychiatric: Mood and Affect: Mood normal. Behavior: Behavior normal. Discharge Medications: Discharge Medications New Medications Details enoxaparin 60 mg/0.6 mL injection Inject 0.6 mLs under the skin every 12 hours for 7 days. Continue taking until INR over 2. 0 aka: LOVENOX furosemide 20 mg tablet Take 1 tablet by mouth Daily. aka: LASIX potassium chloride 10 mEq CR tablet Take 1 tablet by mouth Daily. aka: KLOR-CON Changed Medications Details losartan 50 mg tablet Take 1 tablet by mouth Daily. What changed: medication strength how much to take aka: COZAAR metoprolol succinate 50 mg 24 hr tablet Take 1 tablet by mouth Daily. What changed: medication strength how much to take aka: TOPROL-XL Unchanged Medications Details acetaminophen 325 mg tablet Take 650 mg by mouth every 4 hours as needed for Pain. aka: TYLENOL aspirin 81 MG EC tablet Take 1 tablet by mouth Daily. GLUCOSAMINE CHONDR 500 COMPLEX PO Take 1 tablet by mouth Daily. glucose 4 g chewable tablet Take 4 g by mouth as needed for Low blood sugar. JANUMET XR 50-1000 MG Tb24 Generic drug: SITagliptin-metFORMIN HCl ER Take 1 tablet by mouth nightly. montelukast 10 mg tablet Take 10 mg by mouth nightly. aka: SINGULAIR nitroglycerin 0.[address] 0.4 mg under the tongue every 5 minutes as needed for Chest pain. aka: NITROSTAT warfarin 1 mg tablet Take 2.5 mg by mouth Every other day. 2.5 mg every other day alternating with 1 mg aka: COUMADIN warfarin 1 mg tablet Take 1 mg by mouth Every other day. 1 mg every other day alternating with 2.5 mg aka: COUMADIN Discontinued Medications atorvaSTATin 40 mg tablet - can restart when LFT's normalized aka: LIPITOR pseudoePHEDrine 30 mg tablet aka: SUDAFED Pertinent Lab and Imaging Results: Lab Results Component Value Date WBC 6.42 11/24/2019 HCT 36.6 11/24/2019 MCV 89.7 11/24/2019 LABPLAT 229 10/01/2014 PLT 202 11/24/2019 Lab Results Component Value Date CREA 0.64 11/24/2019 BUN 8 11/24/2019 NA 140 11/24/2019 K 4.4 11/24/2019 CL 106 11/24/2019 CO2 25 11/24/2019 Lab Results Component Value Date ALT 650 (H) 11/24/2019 AST 114 (H) 11/24/2019 ALKPHOS 223 (H) 11/24/2019 BILITOT 1.4 (H) 11/24/2019 Lab Results Component Value Date INR 1.2 (H) 11/24/2019 INR 1.2 (H) 11/23/2019 INR 1.3 (H) 11/22/2019 PROTIME 14.5 (H) 11/24/2019 PROTIME 15.1 (H) 11/23/2019 PROTIME 15.9 (H) 11/22/2019 Echocardiogram 11/21/19 Severe, global LV dysfunction with estimated EF 20%. Thickened mitral valve leaflets with moderate to severe central MR. Aortic sclerosis with trace AI. Moderate TR with moderate pulmonary hypertension with RVSP in the mid 50s. No pericardial effusion. Compared with a report from a previous study from 2015, EF is now lower. Read by Dr. Canelo Salazar Condition at Discharge: Fair Time Spent on Discharge: greater than 30 minutes Electronically signed by: Carolyn Crockett MD 11/24/2019 9:23 AM Portions of this chart may have been created with GPN[employer] voice recognition software. Occasi onal wrong-word or sound-alike substitutions may have occurred due to the inherent nicholson itations of voice recognition software. Please read the chart carefully and recognize, using context, where these substitutions have occurred documented in this enc ounter Discharge Instructions Instructions Carolyn Crockett MD - 11/24/2019Do not take Atorvastatin (Lipitor), until you h ave had your liver labs rechecked at a follow-up visit. Weight yourself daily - call your provider if you gain or lose more than 2 lbs in 3 days. Do not take Sudafed- this is bad for your heart. [facility] will mail you a heart monitor with instructions to wear, they will also call you to arrange follow-up with Dr. York in [place]. Continue taking the Lovenox injections twice a day until your warfarin level is over 2. Please note the changed doses of your medications. documented in this encounter Medications at Time of Discharge + + + +---------+ + + | Medication | Sig | Dispensed | Refills | Start | End Date | | | | | | Date | | + + + +---------+ + + | acetaminophen | Take 650 mg by mouth | | 0 | | | | (TYLENOL) 325 mg | every 4 hours as | | | | | | tablet | needed for Pain. | | | | | + + + +---------+ + + | aspirin 81 MG EC | Take 1 tablet by | | 0 | 11/02/19 | | | tablet | mouth Daily. | | | 15 | | + + + +---------+ + + | furosemide (LASIX) | Take 1 tablet by | 30 | 0 | 11/24/19 | | | 20 mg tablet | mouth Daily. | tablet | | 20 | | + + + +---------+ + + | | Take 1 tablet by | | 0 | | | | Glucosamine-Chondroi | mouth Daily. | | | | | | t-Vit C-Mn | | | | | | | (GLUCOSAMINE CHONDR | | | | | | | 500 COMPLEX PO) | | | | | | + + + +---------+ + + | glucose 4 G | Take 4 g by mouth as | | 0 | | | | chewable tablet | needed for Low | | | | | | | blood sugar. | | | | | + + + +---------+ + + | losartan (COZAAR) | Take 1 tablet by | 30 | 0 | 11/24/19 | | | 50 mg tablet | mouth Daily. | tablet | | 20 | | + + + +---------+ + + | montelukast | Take 10 mg by mouth | | 0 | | | | (SINGULAIR) 10 mg | nightly. | | | | | | tablet | | | | | | + + + +---------+ + + | nitroglycerin | Place 0.4 mg under | | 0 | | | | (NITROSTAT) 0.4 mg | the tongue every 5 | | | | | | SL tablet | minutes as needed | | | | | | | for Chest pain. | | | | | + + + +---------+ + + | potassium chloride | Take 1 tablet by | 30 | 0 | 11/24/19 | | | (KLOR-CON) 10 mEq | mouth Daily. | tablet | | 20 | | | CR tablet | | | | | | + + + +---------+ + + | | Take 1 tablet by | | 0 | | | | SITagliptin-metFORMI | mouth nightly. | | | | | | N HCl ER (LEIA | | | | | | | XR) 50-1000 MG TB24 | | | | | | + + + +---------+ + + | warfarin | Take 1 mg by mouth | | 0 | | | | (COUMADIN) 1 mg | Every other day. 1 | | | | | | tablet | mg every other day | | | | | | | alternating with 2.5 | | | | | | | mg | | | | | + + + +---------+ + + | warfarin | Take 2.5 mg by mouth | | 0 | 11/20/19 | | | (COUMADIN) 1 mg | Every other day. | | | 15 | | | tablet | 2.5 mg every other | | | | | | | day alternating with | | | | | | | 1 mg | | | | | + + + +---------+ + + | enoxaparin | Inject 0.6 mLs under | 14 | 0 | 11/24/19 | | | (LOVENOX) 60 mg/0.6 | the skin every 12 | Syringe | | 20 | 0 | | mL injection | hours for 7 days. | | | | | | | Continue taking | | | | | | | until INR over 2.0 | | | | | + + + +---------+ + + | metoprolol | Take 1 tablet by | 30 | 0 | 11/24/19 | | | succinate | mouth Daily. | tablet | | 20 | 0 | | (TOPROL-XL) 50 mg 24 | | | | | | | hr tablet | | | | | | + + + +---------+ + + documented as of this encounter Progress Notes Nadia Cotter MD - 11/24/2019 8:04 AM PDTFormatting of this note might be differe nt from the original. Cardiology progress NOTE [facility] Date of Service: 11/24/2019 Rounding Physician: Nadia Cotter MD Patient Name: Yumiko Peguero : 1935 Medical Record: [id number] Primary Hospital Problem: Acute kidney injury (ROSALVA) with acute tubular necrosis (ATN) ([facility]) ASSESSMENT AND PLAN 83 yo F PMH HFrEF, CAD with occluded LAD and PCI to Lcx (15'), ICM (EF 25%), PVD, PAFIB, se ofx MR and DMT2 who initially presented to [facility] in [place], [place] on 11/14 with cough and malaise, found to have e. Coli bacteremia c/b septic shock with ARF, shock liver, and A FIB with RVR. Initially deepika responded to metoprolol but later went back into Afib with R VR and amio was started prior to transfer to [facility]. She developed a 9 second sinus pauses wit h amiodarone gtt prior to converting to sinus. No further pauses or evidence of symptomatic bradycardia since admission. Cardiology consulted for cardiomyopathy and AFIB. Atrial fibrillation RVR resolved after treatment of sepsis, rate controlled. Avoid amiodarone given significant transaminates and 9 second conversion pauses, continue beta-mima. Would keep K > 4.0, Ma g > 2.0. - cont Toprol-XL 50 mg daily - Replete mag and potassium, 2g IV, and 40meq x1 - Continue monotherapy with coumadin and enoxaparin bridge, until INR > 2.0. Please have RN teach patient how to give these injections. - our office will arranged outpatient MCT post discharge to look for more pauses/A. Fib and evaluate further sinus node dysfunction - outpatient follow up with Dr. York for consideration for MATTRESS SPECIALIST pacer Ischemic cardiomyopathy Severely depressed EF of 20% and moderate to severe mitral regurgitation. More HTN today. - Increase losartan to 50mg daily, (will uptitrate as anne marie, home dose is 100mg) - Continue Toprol` - outpatient consult with Dr. York post discharge to continue to assess for MATTRESS SPECIALIST-P or D Coronary artery disease involving little shell tribe coronary artery of little shell tribe heart without angina pec toris Known CAD with ischemic cardiomyopathy. Cath from 2014 shows 100% occlusion of LAD, negativ e iFR of RCA and PCI with Promus SUSAN to left circumflex artery. - monotherapy with coumadin, would avoid aspirin. Cont BB, ACEi Bradycardia, resolved Pauses after amiodarone, but no real documented symptoms, no recurrence while on Toprol-XL. Outpatient follow up with MCT Mitral regurgitation Severe mitral regurgitation from echo 2014, slightly worsened on repeat echo. Continue [facility] optimization of LV dysfunction. Shock liver Resolving. INR 1.2 today SUBJECTIVE DATA Chief Complaint: F/u bradycardia, and AFIb RVR NSR on tele. No acute events overnight. Awaiting discharge with HH PT/OT once INR therapeut ic on coumadin. INR 1.2 today with 1mg of coumadin. REVIEW OF SYSTEMS: Fells well, denies cp, palpitations, sob. OBJECTIVE DATA VITAL SIGNS: BP (!) 163/92 | Pulse 67 | Temp 36.2 C (97.2 F) (Temporal) | Resp 18 | Ht 1.422 m (4' 8") | Wt 68.4 kg (150 lb 12 oz) | SpO2 97% | BMI 33.80 kg/m Vital sign ranges for last 24hrs: Input and output for last 24hrs: Temp: [36.2 C (97.1 F)-37 C (98.6 F)] 36.2 C (97.2 F) Pulse: [63-77] 67 Resp: [17-18] 18 BP: (134-165)/(71-92) 163/92 SpO2 Av.3 % Min: 96 % Max: 97 % 11/21 1901 - 11/23 0700 In: 1400 [P.O.:1400] Out: 1950 [Urine:1950] Intake/Output Summary (Last 24 hours) at 11/24/2019 0804 Last data filed at 11/23/2019 1800 Gross per 24 hour Intake 800 ml Output 600 ml Net 200 ml MEDICATIONS: Scheduled Meds: enoxaparin 1 mg/kg Subcutaneous 2 times per day insulin lispro 0-6 Units Subcutaneous 4x Daily WC and HS losartan 25 mg Oral Daily metoprolol succinate 50 mg Oral Daily miconazole Topical BID warfarin per pharmacy Other Pharmacy Consult Continuous Infusions: dextrose 10% PRN Meds:Hypoglycemia Management AND POCT Glucose AND dextrose AND dextrose 10% PHYSICAL EXAMINATION: Constitutional: good hygiene, Normal Weight. no acute distress. NECK: supple no JVD CV: rrr, s1s2, faint systolic ejection murmur at RSB LUNGS: ctab, nl effort ABD: soft nt/nd, bowel sounds normoactive EXT: trace pitting edema bilateral at the ankles NEURO: A/o x3, nonfocal SKIN: intact, warm, dry no rashes DIAGNOSTICS: Labs: Lab Results Component Value Date CREA 0.64 11/24/2019 BUN 8 11/24/2019 NA 140 11/24/2019 K 4.4 11/24/2019 CL 106 11/24/2019 CO2 25 11/24/2019 Lab Results Component Value Date WBC 6.42 11/24/2019 HCT 36.6 11/24/2019 MCV 89.7 11/24/2019 LABPLAT 229 10/01/2014 PLT 202 11/24/2019 Lab Results Component Value Date HBA1C 6.3 (H) 09/25/2014 Lab Results Component Value Date CKMB 1.1 09/24/2014 TROPONIN 0.538 (AA) 11/19/2019 Lab Results Component Value Date INR 1.2 (H) 11/24/2019 INR 1.2 (H) 11/23/2019 INR 1.3 (H) 11/22/2019 PROTIME 14.5 (H) 11/24/2019 PROTIME 15.1 (H) 11/23/2019 PROTIME 15.9 (H) 11/22/2019 Lab Results Component Value Date CHOL 121 09/25/2014 Lab Results Component Value Date HDL 37 (L) 09/25/2014 Lab Results Component Value Date LDL 60 09/25/2014 No results found for: LDLDIRECT Lab Results Component Value Date TRIG 122 09/25/2014 No results found for: CHOLHDL Lab Results Component Value Date TSH 7.28 (H) 09/25/2014 Telemetry: Normal sinus rhythm 60s zero alarms Please feel free to contact me with any questions, Electronically signed by: Nadia Cotter MD, DATE/TIME: 11/24/2019 8:04 AM [facility] Associated attestation - Canelo Salazar MD - 11/24/2019 9:12 PM PDTAttending Adden dum: Looks great this morning before discharge. No chest discomfort. My pertinent physical exam findings include: GEN: NAD Neck: No JVD Chest: Normal respiratory effort, bilaterally clear to auscultation. Heart: Regular rate and rhythm, No murmurs, rubs or gallops. Ext: No cyanosis or edema. Assessment: 1. Atrial fibrillation with long conversion pause. Tolerating moderate dose of metoprolol . 2. Ischemic cardiomyopathy, EF 20s with severe MR, though pretty well compensated at this point. 3. Shock liver, transaminases improving. Plan: 1. Home today okay with cardiology. 2. Our office will mail her a 30-day MCT event monitor to watch for more atrial fibrillati on and/or pauses. 3. Outpatient consultation with Dr. Zen York for consideration of MATTRESS SPECIALIST pacemaker placement given her severe cardiomyopathy, LBBB, and MR. 4. I would suggest a repeat CMP in 1 to 2 weeks, and a atorvastatin can be restarted if he r LFTs have normalized or are only mildly elevated at that point. 5. Would suggest avoiding Sudafed in the future given her severe cardiomyopathy. 6. Lovenox bridge until INR is greater than 2. Discussed all these complicated plans with Dr. Crockett by phone today. Canelo Salazar MD, [facility] [place] [facility] [place], Morales Quezada MD - 11/23/2019 3:05 PM PDTFormatting of this note might be differen t from the original. [facility] Patient: Yumiko Peguero Date of : 1935 Admit Date: 11/19/2019 Date of Service: 11/23/2019 PCP: Eva An MD Hospital Day: Hospital Day: 5 Hospital Course: 83 yo female with h/o NIDDM, ischemic cardiomyopathy with EF 25-30% by TTE 2014, severe german ral regurgitation, CAD with prior PCI x2, and atrial fib who presented to [facility] in [place] on 11/14 with productive cough and fever/chills, found to be in septic sh ock 2/2 presumed PNA and almonte-sensitive Ecoli bacteremia (repeat bcx 11/16 negative). UA was un remarkable for infection. CXR showed ?right lung base prominence - artifact vs early infiltr ate. Admitted to the ICU and required brief pressor support. Was started on CTX/azithromycin . COVID negative. Initial TNI and EKG negative. BNP was >700, lactate 4. Course complicated by afib with RVR which spontaneously converted to SR with treatment of sepsis and resuming h ome metoprolol. She was noted to have a 9 second pauses while in afib. TTE showed EF 25%, un changed from prior. She was started on eliquis. On 11/16, she developed SOB with concern for volume overload on imaging so was diuresed. She did have mild TNI bump to 0.08. On 11/17, she went back into afib RVR, treated with amiodarone bolus which resulted in bradycardia (HR range 50s-70s). Overnight she was noted to have dec reased UOP (documented 45 cc only but no shea was in place for more accurate measurements) and on 11/18, labs notable for worsening transaminitis with AST 1500, ALT 1000 (pt had elevate d LFTs on admit which had improved with treatment of sepsis), Cr 1.6 from 0.8 the day prior, bicarb 12 and potassium 5.9. EKG without peaked T-waves but did show QTc 601 ms and QRS 152 ms. She was given calcium gluconate and started on a bicarb gtt. Transfer to [facility] for highe level of care. Dr. York ([facility]) was called given pt's h/o ICM, afib, 9 second pause, accepti ng the patient for transfer and agreed with cardiology consultation on arrival. After the patient's transfer to [facility] she continued to improve on a d aily basis. Her shock liver transaminitis resolved, her acute kidney injury resolved, and h er hypoxia resolved. She was treated for 7 days of IV ceftriaxone following her repeat nega tive blood culture from the outside facility on 11/17/2019 for complete course of antibiotics for her bacteremia. Cardiology was consulted and started her on a low-dose beta-mima and restarted her ARB a s well as her warfarin. Her rate has been well controlled with no further pauses. [facility] plans to organize outpatient mobile cardiac telemetry at the time of discharge as well as follow-up with Dr. York as an outpatient to reassess for MATTRESS SPECIALIST pacer/defibrillator i n the future. Home health has been ordered and she is expected to possibly discharge back to the [place], [place] area on 11/24/2019. Assessment and Plan: Active Problems: Mitral regurgitation Septic shock Bacteremia due to Escherichia coli Bradycardia Ischemic cardiomyopathy Atrial fibrillation with RVR Shock liver Type 2 diabetes mellitus Prolonged Q-T interval on ECG Coronary artery disease involving little shell tribe coronary artery of little shell tribe heart without angina p ectoris Metabolic acidosis Severe sepsis 2/2 PNA and Ecoli bacteremia Completed 5 day course of azithromycin/CTX for PNA, continues on CTX for almonte-sensitive Ecol i bacteremia. Repeat BCx 11/16 negative Now on room air and in no respiratory distress Plan was to continue 7 day abx course from negative blood cultures Ceftriaxone 2 g daily, Day 12/21, stopping after today's dose ROSALVA, suspect ATN Metabolic acidosis in setting of septic shock on presentation, diuresis, bradycardia Lactic acidosis at presentation with venous lactate of 9.0, down trended to resolution at 1 .7 Creat improved Good urine ouput Nephrology consulted, now signed off Cardiology restarted losartan Ischemic cardiomyopathy, EF 15% H/o CAD Severe MR prior PCI to LAD 1996 and LCx 2014 EF 25-30% by TTE 2014, unchanged by TTE done at OSH New ECHO here shows EF only 15% with significant MR Cardiology consulting Low dose BB, restarted ARB Cardiology planning outpatient consultation with Dr. York post discharge to continue to as sess for MATTRESS SPECIALIST-P or D Atrial fib with RVR with resultant bradycardia after amiodarone bolus at OSH, HR 50s-70s noted to have 9 sec pause after prior spontaneous conversion to SR Cardiology consulting Rate controlled currently on low dose metoprolol Management per cards Held AC with innate INR of 5.0 assoc with acute hepatic injury, now INR improved to 1.6 pos t vit K INR 1.2 today Cardiology restarted warfarin (cards recommending lovenox bridge, but this may not be neede d at time of discharge) Cardiology planning follow-up with outpatient, Dr. York, to discuss MATTRESS SPECIALIST pacer Shock liver resolving in setting of septic shock LFTs all improving s/p 10 mg IV vit K, no bleeding Cardiology restarted warfarin Prolonged Qtc 601 ms at OSH, 571 ms here Avoid QTc prolonging meds DM2 Held oral home meds ISS Disposition: Planning home in [place], [place] with home health at discharge (possibly as soon as 11/24/19) CODE STATUS: DNR (No Code) DVT prophylaxis: enoxaparin Subjective: Feeling well now, walking the halls with staff at times No pain No SOB No CP No NVD No bleeding Objective: Temp: [36.1 C (96.9 F)-36.8 C (98.3 F)] 36.7 C (98.1 F) Pulse: [63-72] 63 Resp: [16-17] 17 BP: (134-158)/(69-79) 134/71 INPUT/OUTPUT: Intake/Output Summary (Last 24 hours) at 11/23/2019 1524 Last data filed at 11/23/2019 1100 Gross per 24 hour Intake 1200 ml Output 2200 ml Net -1000 ml Physical Exam Constitutional: She is oriented to person, place, and time. No distress. Sitting up in bed, no distress HENT: Head: Normocephalic and atraumatic. Eyes: Conjunctivae and EOM are normal. Cardiovascular: Normal rate. irreg irreg Pulmonary/Chest: Effort normal. No stridor. No respiratory distress. No wheezing, no crackles Abdominal: Soft. Bowel sounds are normal. Musculoskeletal: General: No edema. Neurological: She is alert and oriented to person, place, and time. Skin: Skin is warm and dry. She is not diaphoretic. Multiple bruises Psychiatric: Affect normal. Scheduled PRN enoxaparin 40 mg Subcutaneous Daily insulin lispro 0-6 Units Subcutaneous 4x Daily WC and HS losartan 25 mg Oral Daily [START ON 11/24/2019] metoprolol succinate 50 mg Oral Daily miconazole Topical BID probiotic 1 capsule Oral BID WC warfarin 1 mg Oral Once - Warfarin warfarin per pharmacy Other Pharmacy Consult dextrose 10% Hypoglycemia Management AND POCT Glucose AND dextrose AND dextrose 10% All pertinent labs and imaging have been reviewed. Please refer to the Assessment and Plan for details on management. I spent 35 minutes with the patient and on the patient's unit, with over 50% spent in coun seling and/or coordination of care. Please refer to the Assessment and Plan for details. Electronically signed by: Morales Lloyd MD 11/23/2019 3:24 PM Portions of this chart may have been created with GPNX voice recognition software. Occasi onal wrong-word or sound-alike substitutions may have occurred due to the inherent nicholson itations of voice recognition software. Please read the chart carefully and recognize, using context, where these substitutions have occurred rowhonorio, Nadia Lorenz MD - 11/23/2019 8:07 AM PDTFormatting of this note might be different from the origi nal. Cardiology progress NOTE [facility] Date of Service: 11/23/2019 Rounding Physician: Nadia Cotter MD Patient Name: Yumiko Peguero : 1935 Medical Record: [id number] Primary Hospital Problem: Acute kidney injury (ROSALVA) with acute tubular necrosis (ATN) ([facility]) ASSESSMENT AND PLAN 83 yo F PMH HFrEF, CAD with occluded LAD and PCI to Lcx (15'), ICM (EF 25%), PVD, PAFIB, se fox MR and DMT2 who initially presented to [facility] in [place], [place] on 11/14 with cough and malaise, found to have e. Coli bacteremia c/b septic shock with ARF, shock liver, and A FIB with RVR. Initially deepika responded to metoprolol but later went back into Afib with R VR and amio was started prior to transfer to [facility]. She developed a 9 second sinus pauses wit h amiodarone gtt prior to converting to sinus. Has remains in asymptomatic bradycardia since admission. Cardiology was consulted for cardiomyopathy and AFIB. Atrial fibrillation with RVR In setting of sepsis. Now resolved, rate controlled. Avoid amiodarone given significant tra nsaminates and 9 second conversion pauses, continue low-dose beta-mima. Would keep K > 4. 0, Mag > 2.0. - Increase Toprol-XL to 50 mg daily - Replete mag and potassium, 2g IV, and 40meq x1 - Continue monotherapy with coumadin and enoxaparin bridge - Outpatient MCT post discharge to look for more pauses/A. Fib and evaluate further sinus n ode dysfunction - will discuss with Dr. York to follow up outpatient for to MATTRESS SPECIALIST pacer Bradycardia Pauses after amiodarone, but no real documented symptoms, no recurrence while on Toprol-XL. If the patient has recurrent rapid atrial fibrillation alternating with significant bradyca rdia, she may require pacemaker implantation. If pacemaker is required, would consider MATTRESS SPECIALIST P Mitral regurgitation Severe mitral regurgitation from echo 2014, slightly worsened on repeat echo. Continue medi destiny optimization of LV dysfunction. Coronary artery disease involving little shell tribe coronary artery of little shell tribe heart without angina pec toris Known CAD with ischemic cardiomyopathy. Cath from 2015 shows 100% occlusion of LAD, negativ e iFR of RCA and PCI with Promus SUSAN to left circumflex artery. - monotherapy with coumadin, would avoid aspirin. Cont BB, ACEi Ischemic cardiomyopathy Severely depressed EF of 20% and moderate to severe mitral regurgitation. Continue Toprol, and losartan. - outpatient consult with Dr. York post discharge to continue to assess for MATTRESS SPECIALIST-P or D Bradycardia Asymptomatic, no further pauses after sinus conversion with amiodarone. If the patient has recurrent rapid atrial fibrillation alternating with significant bradycardia, she may requir e pacemaker implantation. If pacemaker is required, would consider MATTRESS SPECIALIST P or MATTRESS SPECIALIST D. Shock liver Resolving. INR 1.2 today SUBJECTIVE DATA Chief Complaint: F/u bradycardia, and AFIb RVR No acute events overnight. Remains in sinus tach, on low dose metoprolol and anne marie ACEi. Coum paula started 11/22 per RX. INR 1.2 today. REVIEW OF SYSTEMS: Please see above for further details. ROS otherwise negaitve OBJECTIVE DATA VITAL SIGNS: BP 142/72 | Pulse 69 | Temp 36.7 C (98.1 F) (Oral) | Resp 16 | Ht 1.42 2 m (4' 8") | Wt 69.8 kg (153 lb 14.1 oz) | SpO2 95% | BMI 34.50 kg/m Vital sign ranges for last 24hrs: Input and output for last 24hrs: Temp: [36.1 C (96.9 F)-36.8 C (98.3 F)] 36.7 C (98.1 F) Pulse: [57-72] 69 Resp: [16] 16 BP: (140-158)/(69-79) 142/72 SpO2 Av.4 % Min: 93 % Max: 96 % 11/20 1901 - 11/22 0700 In: 1560 [P.O.:1560] Out: 1999 [Urine:1999] Intake/Output Summary (Last 24 hours) at 11/23/2019 0807 Last data filed at 11/23/2019 0612 Gross per 24 hour Intake 900 ml Output 2000 ml Net -1100 ml MEDICATIONS: Scheduled Meds: cefTRIAXone 2 g Intravenous Daily enoxaparin 40 mg Subcutaneous Daily insulin lispro 0-6 Units Subcutaneous 4x Daily WC and HS losartan 25 mg Oral Daily metoprolol succinate 25 mg Oral Daily miconazole Topical BID probiotic 1 capsule Oral BID WC warfarin 1 mg Oral Once - Warfarin warfarin per pharmacy Other Pharmacy Consult Continuous Infusions: dextrose 10% PRN Meds:Hypoglycemia Management AND POCT Glucose AND dextrose AND dextrose 10% PHYSICAL EXAMINATION: Constitutional: good hygiene, Normal Weight. no acute distress. NECK: supple no JVD CV: rrr, s1s2, faint systolic ejection murmur at RSB LUNGS: ctab, nl effort ABD: soft nt/nd, bowel sounds normoactive EXT: trace pitting edema bilateral at the ankles NEURO: A/o x3, nonfocal SKIN: intact, warm, dry no rashes DIAGNOSTICS: Labs: Lab Results Component Value Date CREA 0.70 11/22/2019 BUN 10 11/22/2019 NA 141 11/22/2019 K 3.5 11/22/2019 CL 107 11/22/2019 CO2 28 11/22/2019 Lab Results Component Value Date WBC 5.68 11/22/2019 HCT 35.9 11/22/2019 MCV 89.3 11/22/2019 LABPLAT 229 10/01/2014 PLT 172 11/22/2019 Lab Results Component Value Date HBA1C 6.3 (H) 09/25/2014 Lab Results Component Value Date CKMB 1.1 09/24/2014 TROPONIN 0.538 (AA) 11/19/2019 Lab Results Component Value Date INR 1.2 (H) 11/23/2019 INR 1.3 (H) 11/22/2019 INR 1.6 (H) 11/21/2019 PROTIME 15.1 (H) 11/23/2019 PROTIME 15.9 (H) 11/22/2019 PROTIME 18.7 (H) 11/21/2019 Lab Results Component Value Date CHOL 121 09/25/2014 Lab Results Component Value Date HDL 37 (L) 09/25/2014 Lab Results Component Value Date LDL 60 09/25/2014 No results found for: LDLDIRECT Lab Results Component Value Date TRIG 122 09/25/2014 No results found for: CHOLHDL Lab Results Component Value Date TSH 7.28 (H) 09/25/2014 Telemetry: Sinus tachycardia, 80-100s Please feel free to contact me with any questions, Electronically signed by: Nadia Cotter MD, DATE/TIME: 11/23/2019 8:07 AM [facility] Associated attestation - Canelo Salazar MD - 11/23/2019 5:45 PM PDTAttending Adden dum: I saw her up walking around in the halls this afternoon and she looks great. My pertinent physical exam findings include: GEN: NAD Neck: No JVD Chest: Normal respiratory effort, bilaterally clear to auscultation. Heart: Regular rate and rhythm, No murmurs, rubs or gallops. Ext: No cyanosis or edema. Assessment: 1. Atrial fibrillation with 9-second conversion pause earlier this admission. 2. Severe LV dysfunction with EF 20, significant MR. 3. Transaminitis, labs improving. 4. Heart rate still good on the 25 mg dose of Toprol. Would like to push the dose a littl e higher with her severe cardiomyopathy. Plan: 1. Increase Toprol to 50 mg daily today to make sure that will be tolerated as an outpatie nt. 2. Our office will mail her a 30-day MCT monitor to look for further atrial fibrillation a nd/or pauses. 3. Coumadin has been restarted, and should be bridged with low molecular weight heparin un til her INR comes up. Lovenox dose adjusted up to full dose. 4. Outpatient visit with Dr. York to discuss MATTRESS SPECIALIST-P. Canelo Salazar MD, [facility] Moses Freitas, PharmD - 11/23/2019 7:54 AM PDTFormatting of this note might be diffe rent from the original. Pharmacy Progress Note Warfarin Per Pharmacy Protocol: Yumiko Peguero is a 83 y.o. female receiving warfarin for atrial fibrillation with a goal IN R of 2-3. Date 11/23/19 INR 1.2 Warfarin Dose 1 mg Platelets - H&H -/- Assessment/Plan: 1. Warfarin 1 mg x 1 dose this evening 2. Bridge: Lovenox (prophylactic) 3. Labs ordered: INR daily Subjective/Objective: 1. []Initiation [x]chronic 2. Home regimen: Warfarin 2.5 mg alternating with warfarin 1 mg 3. Significant drug interactions: Reviewed 4. Sensitizing factors: Age, shock liver Recent Labs Lab 11/23/19 0255 11/22/19 0339 CREA -- 0.70 PLT -- 172 INR 1.2* 1.3* HGB -- 11.1* HCT -- 35.9 Per P&T-approved Warfarin Protocol Electronically signed by: Moses Freitas PharmD 11/23/2019 7:54 AM ope, Morales Quezada MD - 11/22/2019 2:43 PM PDTFormatting of this note might be different from the laila savage. [facility] Patient: Yumiko Peguero Date of : 1935 Admit Date: 11/19/2019 Date of Service: 11/22/2019 PCP: Eva An MD Hospital Day: Hospital Day: 4 Hospital Course: 83 yo female with h/o NIDDM, ischemic cardiomyopathy with EF 25-30% by TTE 2014, severe german ral regurgitation, CAD with prior PCI x2, and atrial fib who presented to [facility] in [facility] on 11/14 with productive cough and fever/chills, found to be in septic sh ock 07/19 presumed PNA and almonte-sensitive Ecoli bacteremia (repeat bcx 11/16 negative). UA was un remarkable for infection. CXR showed ?right lung base prominence - artifact vs early infiltr ate. Admitted to the ICU and required brief pressor support. Was started on CTX/azithromycin . COVID negative. Initial TNI and EKG negative. BNP was >700, lactate 4. Course complicated by afib with RVR which spontaneously converted to SR with treatment of sepsis and resuming h ome metoprolol. She was noted to have a 9 second pauses while in afib. TTE showed EF 25%, un changed from prior. She was started on eliquis. On 11/16, she developed SOB with concern for volume overload on imaging so was diuresed. She did have mild TNI bump to 0.08. On 11/17, she went back into afib RVR, treated with amiodarone bolus which resulted in bradycardia (HR range 50s-70s). Overnight she was noted to have dec reased UOP (documented 45 cc only but no shea was in place for more accurate measurements) and on 11/18, labs notable for worsening transaminitis with AST 1500, ALT 1000 (pt had elevate d LFTs on admit which had improved with treatment of sepsis), Cr 1.6 from 0.8 the day prior, bicarb 12 and potassium 5.9. EKG without peaked T-waves but did show QTc 601 ms and QRS 152 ms. She was given calcium gluconate and started on a bicarb gtt. [facility]. York ([facility]) was called given pt's h/o ICM, afib, 9 second pause and he w ill consult. Assessment and Plan: Principal Problem: Acute kidney injury (ROSALVA) with acute tubular necrosis (ATN) Active Problems: Mitral regurgitation Septic shock Bacteremia due to Escherichia coli Bradycardia Ischemic cardiomyopathy Atrial fibrillation with RVR Hyperkalemia Shock liver Type 2 diabetes mellitus Prolonged Q-T interval on ECG Coronary artery disease involving little shell tribe coronary artery of little shell tribe heart without angina p ectoris Metabolic acidosis Severe sepsis 2/ PNA and Ecoli bacteremia Completed 5 day course of azithromycin/CTX for PNA, continues on CTX for almonte-sensitive Ecol i bacteremia. Repeat BCx 11/16 negative Now on room air and in no respiratory distress Plan to continue 7 day abx course from negative blood cultures continue ceftriaxone 2 g daily, Day 7 ROSALVA, suspect ATN Metabolic acidosis in setting of septic shock on presentation, diuresis, bradycardia Lactic acidosis at presentation with venous lactate of 9.0, down trended to resolution at 1 .7 Cr 0.8 --> 1.6 -->0.9 Good urine ouput Nephrology consulted, now signed off Cardiology restarted losartan Ischemic cardiomyopathy, EF 15% H/o CAD Severe MR prior PCI to LAD 1996 and LCx 2014 EF 25-30% by TTE 2014, unchanged by TTE done at OSH New ECHO here shows EF only 15% with significant MR Cardiology consulting Low dose BB, restarted ARB Atrial fib with RVR with resultant bradycardia after amiodarone bolus at OSH, HR 50s-70s noted to have 9 sec pause after prior spontaneous conversion to SR Cardiology consulting Rate controlled currently on low dose metoprolol Management per cards Held AC with innate INR of 5.0 assoc with acute hepatic injury, now INR improved to 1.6 pos t vit K Cardiology restarted warfarin today Considering pacemaker/defibrillator Shock liver resolving in setting of septic shock INR 5.0 -->1.6 -->1.3 ALP 247 -->213 -->191 -->282 ALT 3283-->2925-->1697-->1198 AST 7030-->4869-->1165-->491 Bili 3.5 -->1.7 -->1.4 -->1.7 s/p 10 mg IV vit K, no bleeding Cardiology restarted warfarin today Prolonged Qtc 601 ms at OSH, 571 ms here Avoid QTc prolonging meds DM2 Hold oral home meds ISS Disposition: Consulted PT/OT, SW consulted, Will need SNF CODE STATUS: DNR (No Code) DVT prophylaxis: enoxaparin Subjective: Feeling well this morning, ate breakfast No pain, asking when she may be able to discharge No SOB No CP No NVD Objective: Temp: [35.8 C (96.4 F)-36.8 C (98.3 F)] 36.6 C (97.9 F) Pulse: [57-72] 57 Resp: [16] 16 BP: (133-158)/(62-80) 142/72 INPUT/OUTPUT: Intake/Output Summary (Last 24 hours) at 11/22/2019 1443 Last data filed at 11/22/2019 0851 Gross per 24 hour Intake 1182 ml Output 200 ml Net 982 ml Physical Exam Constitutional: She is oriented to person, place, and time. No distress. Sitting up in chair at bedside, no distress HENT: Head: Normocephalic and atraumatic. Eyes: Conjunctivae and EOM are normal. Cardiovascular: Normal rate. irreg irreg Pulmonary/Chest: Effort normal. No stridor. No respiratory distress. No wheezing, no crackles Abdominal: Soft. Bowel sounds are normal. Musculoskeletal: General: No edema. Neurological: She is alert and oriented to person, place, and time. Skin: Skin is warm and dry. She is not diaphoretic. Multiple bruises Psychiatric: Affect normal. Scheduled PRN cefTRIAXone 2 g Intravenous Daily enoxaparin 40 mg Subcutaneous Daily insulin lispro 0-6 Units Subcutaneous 4x Daily WC and HS [START ON 11/23/2019] losartan 25 mg Oral Daily metoprolol succinate 25 mg Oral Daily miconazole Topical BID probiotic 1 capsule Oral BID WC [START ON 11/23/2019] warfarin per pharmacy Other Pharmacy Consult dextrose 10% Hypoglycemia Management AND POCT Glucose AND dextrose AND dextrose 10% All pertinent labs and imaging have been reviewed. Please refer to the Assessment and Plan for details on management. I spent 35 minutes with the patient and on the patient's unit, with over 50% spent in coun seling and/or coordination of care. Please refer to the Assessment and Plan for details. Electronically signed by: Morales Lloyd MD 11/22/2019 2:43 PM Portions of this chart may have been created with GPNX voice recognition software. Occasi onal wrong-word or sound-alike substitutions may have occurred due to the inherent nicholson itations of voice recognition software. Please read the chart carefully and recognize, using context, where these substitutions have occurred Alex Mejia MD - 11/22/2019 1:56 PM PDTFormatting of this note might be different from the origi nal. PATIENT NAME: Yumiko Peguero : 1935: AGE: 83 y.o. ADMISSION DATE: 11/19/2019 Hospital Day: Hospital Day: 4 Code Status: DNR (No Code) DATE OF SERVICE: 11/22/2019 Canelo Salazar MD CARDIOLOGY DAILY PROGRESS NOTE PRIMARY HOSPITAL PROBLEM: Acute kidney injury (ROSALVA) with acute tubular necrosis (ATN) (HCC) CHIEF COMPLAINT: Looks and feels significantly better. Getting stronger. ASSESSMENT AND PLAN * Acute kidney injury (ROSALVA) with acute tubular necrosis (ATN) (HCC) Assessment & Plan Creatinine back to normal now.ROSALVA was likely due to transient hypotension with ATN. Not cu rrently volume overloaded. Coronary artery disease involving little shell tribe coronary artery of little shell tribe heart without angina pec toris Assessment & Plan Known CAD with ischemic cardiomyopathy. Cath from 2014 shows 100% occlusion of LAD, negativ e iFR of RCA and PCI with Promus SUSAN to left circumflex artery. Troponin mildly elevated 0.5 on 11/19/19. Plan: No aspirin while not on anticoagulation and will wait to restart given elevated liver trans aminases. No statin for same reasons. Continue BB Atrial fibrillation with RVR (HCC) Assessment & Plan No amiodarone, just low-dose beta-mima. Outpatient MCT post discharge to look for more pauses/A. fib. She will also need an outpatient consult with Dr. York to discuss MATTRESS SPECIALIST pacer , though her QRS is less than 150 ms wide, so she may not respond as well as patients with a wider QRS. Recommend holding amiodarone for now given significant transaminates and [address] conversion pause. Currently rate controlled Afib. Plan: Continue Toprol-XL 25 mg daily Depending on liver enzymes and INR in AM, consider restarting Warfarin MCT upon discharge to evaluate further sinus node dysfunction Ischemic cardiomyopathy Assessment & Plan Severely depressed EF of 20% and moderate to severe mitral regurgitation. Continue Toprol (which we have been cautious about dosing given her 9-second conversion pause earlier this a dmission). Tolerated starting losartan, which I will increase today to her home dose of 25 mg daily. She needs an outpatient consult with Dr. York post discharge to continue to asse ss for MATTRESS SPECIALIST pacemaker. Bradycardia Assessment & Plan Pauses after amiodarone, but no real documented symptoms, no recurrence while on Toprol-XL. If the patient has recurrent rapid atrial fibrillation alternating with significant bradyca rdia, she may require pacemaker implantation. If pacemaker is required, would consider MATTRESS SPECIALIST P or MATTRESS SPECIALIST D. Mitral regurgitation Assessment & Plan Severe mitral regurgitation from echo 2014, repeat echo yesterday looks moderate to severe. May change based on amount of annular dilatation from her LV dysfunction, so good treatmen t of her LV dysfunction will be [place]. SUBJECTIVE DATA PATIENT SYMPTOMS/24 HOUR EVENTS: Up in a chair, no new cardiac events. REVIEW OF SYSTEMS: CV: negative Resp: no cough, shortness of breath, or wheezing OBJECTIVE DATA MEDICATIONS: Reviewed today Scheduled PRN cefTRIAXone 2 g Intravenous Daily enoxaparin 40 mg Subcutaneous Daily insulin lispro 0-6 Units Subcutaneous 4x Daily WC and HS [START ON 11/23/2019] losartan 25 mg Oral Daily metoprolol succinate 25 mg Oral Daily miconazole Topical BID probiotic 1 capsule Oral BID WC [START ON 11/23/2019] warfarin per pharmacy Other Pharmacy Consult dextrose 10% Hypoglycemia Management AND POCT Glucose AND dextrose AND dextrose 10% IMAGING: Reviewed today No results found. LABS: Reviewed today Recent Labs 11/22/19 0339 11/21/19 0425 11/20/19 0413 WBC 5.68 6.70 6.05 HGB 11.1* 11.0* 10.4* HCT 35.9 32.3* 31.2* PLT 172 158 133* NA 141 143 132* K 3.5 3.4* 3.6 CL 107 105 98* CO2 28 31* 25 BUN 10 20 37* CREA 0.70 0.91 1.62* GLU 98 89 107* CALCIUM 8.4* 8.3* 8.2* INR 1.3* 1.6* -- Lab Results Component Value Date CHOL 121 09/25/2014 HDL 37 (L) 09/25/2014 TRIG 122 09/25/2014 VITAL SIGNS: Reviewed today Vitals Current Average / Min / Max Temp 36.6 C (97.9 F) Temp Min: 35.8 C (96.4 F) Max: 36.8 C (98.3 F) BP 142/72 BP Min: 133/70 Max: 158/79 HR 57 Pulse Av.6 Min: 57 Max: 72 RR 16 Resp Av Min: 16 Max: 16 Sats 98 % on L/min room air Weight 68.9 kg (151 lb 12.8 oz) Admit: 67.9 kg (149 lb 12.8 oz) INTAKE/OUTPUT Intake/Output Summary (Last 24 hours) at 11/22/2019 1357 Last data filed at 11/22/2019 0851 Gross per 24 hour Intake 1182 ml Output 200 ml Net 982 ml PHYSICAL EXAM Admit Weight: Weight: 67.9 kg (149 lb 12.8 oz) Current weight: Weight: 68.9 kg (151 lb 12.8 oz) Body mass index is 34.03 kg/m. GENERAL: Pleasant, talkative in no acute distress. HEENT: Conjunctivae and lids are normal in appearance. Mucous membranes moist without pall or or cyanosis. NECK: Supple. No JVD. CHEST: Respiratory effort is normal. Clear to auscultation without crackles, rhonchi, or w heezes. CARDIAC: RRR, Normal S1 and S2,, soft systolic ejection murmur ABDOMEN: Soft, non-tender, nondistended with normal, active bowel sounds. EXTREMITIES: No clubbing, cyanosis, or edema. PULSES: Right: DP 2+, PT 2+ Left: DP 2+, PT 2+ NEUROLOGIC: Alert and oriented to time, place and person. Normal affect. Signed by: Canelo Salazar MD 11/22/2019, 1:57 PM Portions of this chart were created with GPNX voice recognition software. Occasional wro ng-word or "sound-alike" substitutions may have occurred due to the inherent limitations of voice recognition software. Please read the chart carefully and recognize, using context, w here those substitutions have occurred. ope, Morales león MD - 11/21/2019 2:48 PM PDTFormatting of this note might be different from the origi nal. [facility] Patient: Yumiko Peguero Date of : 1935 Admit Date: 11/19/2019 Date of Service: 11/21/2019 PCP: Eva An MD Hospital Day: Hospital Day: 3 Hospital Course: 83 yo female with h/o NIDDM, ischemic cardiomyopathy with EF 25-30% by TTE 2014, severe german ral regurgitation, CAD with prior PCI x2, and atrial fib who presented to [facility] in [place] on 11/14 with productive cough and fever/chills, found to be in septic sh ock 2/2 presumed PNA and almonte-sensitive Ecoli bacteremia (repeat bcx 11/16 negative). UA was un remarkable for infection. CXR showed ?right lung base prominence - artifact vs early infiltr ate. Admitted to the ICU and required brief pressor support. Was started on CTX/azithromycin . COVID negative. Initial TNI and EKG negative. BNP was >700, lactate 4. Course complicated by afib with RVR which spontaneously converted to SR with treatment of sepsis and resuming h ome metoprolol. She was noted to have a 9 second pauses while in afib. TTE showed EF 25%, un changed from prior. She was started on eliquis. On 11/16, she developed SOB with concern for volume overload on imaging so was diuresed. She did have mild TNI bump to 0.08. On 11/17, she went back into afib RVR, treated with amiodarone bolus which resulted in bradycardia (HR range 50s-70s). Overnight she was noted to have dec reased UOP (documented 45 cc only but no shea was in place for more accurate measurements) and on 11/18, labs notable for worsening transaminitis with AST 1500, ALT 1000 (pt had elevate d LFTs on admit which had improved with treatment of sepsis), Cr 1.6 from 0.8 the day prior, bicarb 12 and potassium 5.9. EKG without peaked T-waves but did show QTc 601 ms and QRS 152 ms. She was given calcium gluconate and started on a bicarb gtt. [facility] York ([facility]) was called given pt's h/o ICM, afib, 9 second pause and he w ill consult. Assessment and Plan: Principal Problem: Acute kidney injury (ROSALVA) with acute tubular necrosis (ATN) Active Problems: Mitral regurgitation Septic shock Bacteremia due to Escherichia coli Bradycardia Ischemic cardiomyopathy Atrial fibrillation with RVR Hyperkalemia Shock liver Type 2 diabetes mellitus Prolonged Q-T interval on ECG Coronary artery disease involving little shell tribe coronary artery of little shell tribe heart without angina p ectoris Metabolic acidosis Severe sepsis 2/2 PNA and Ecoli bacteremia Completed 5 day course of azithromycin/CTX for PNA, continues on CTX for almonte-sensitive Ecol i bacteremia. Repeat BCx 11/16 negative Now on room air and in no respiratory distress Plan to continue 7 day abx course from negative blood cultures continue ceftriaxone 2 g daily, Day 5/7 ROSALVA, suspect ATN Metabolic acidosis in setting of septic shock on presentation, diuresis, bradycardia Lactic acidosis at presentation with venous lactate of 9.0, down trended to resolution at 1 .7 Cr 0.8 --> 1.6 -->0.9 Good urine ouput Nephrology consulted Cardiology restarting losartan Ischemic cardiomyopathy, EF 15% H/o CAD Severe MR prior PCI to LAD 1996 and LCx 2014 EF 25-30% by TTE 2014, unchanged by TTE done at OSH New ECHO here shows EF only 15% with significant MR Cardiology consulting Atrial fib with RVR with resultant bradycardia after amiodarone bolus at OSH, HR 50s-70s noted to have 9 sec pause after prior spontaneous conversion to SR Cardiology consulted Rate controlled currently on low dose metoprolol Management per cards Held AC with innate INR of 5.0 assoc with acute hepatic injury, now INR improved to 1.6 pos t vit K Checking INR in the AM, cardiology considering warfarin Considering pacemaker/defibrillator Shock liver in setting of septic shock INR 5.0-->1.6 ALP 247-->213-->191 ALT 3283-->2925-->1697 AST 7030-->4869-->1165 Bilirubin 3.5-->1.7-->1.4 Discussed with hepatology, who is following peripherally Continue to monitor, s/p 10 mg IV vit K, no bleeding Started enoxaparin (DVT proph) Prolonged Qtc 601 ms at OSH, 571 ms here Avoid QTc prolonging meds DM2 Hold oral home meds ISS Disposition: Consulted PT/OT, SW consulted, Will need SNF CODE STATUS: DNR (No Code) DVT prophylaxis: enoxaparin Subjective: Feeling well this morning, eating breakfast Denies pain No SOB No CP No NVD Objective: Temp: [36 C (96.8 F)-36.7 C (98.1 F)] 36.7 C (98.1 F) Pulse: [57-70] 62 Resp: [16-20] 16 BP: (131-149)/(65-88) 140/70 INPUT/OUTPUT: Intake/Output Summary (Last 24 hours) at 11/21/2019 1448 Last data filed at 11/21/2019 1156 Gross per 24 hour Intake 360 ml Output 3750 ml Net -3390 ml Physical Exam Constitutional: She is oriented to person, place, and time. No distress. Lying in bed, sitting up eating breakfast, no distress HENT: Head: Normocephalic and atraumatic. Eyes: Conjunctivae and EOM are normal. Cardiovascular: Normal rate. irreg irreg Pulmonary/Chest: Effort normal. No stridor. No respiratory distress. No wheezing, no crackles on anterior exam Abdominal: Soft. Bowel sounds are normal. Mild RUQ tenderness Musculoskeletal: General: No edema. Neurological: She is alert and oriented to person, place, and time. Skin: Skin is warm and dry. She is not diaphoretic. Psychiatric: Affect normal. Scheduled PRN cefTRIAXone 2 g Intravenous Daily insulin lispro 0-6 Units Subcutaneous 4x Daily WC and HS losartan 12.5 mg Oral Daily metoprolol succinate 25 mg Oral Daily miconazole Topical BID probiotic 1 capsule Oral BID WC dextrose 10% Hypoglycemia Management AND POCT Glucose AND dextrose AND dextrose 10% All pertinent labs and imaging have been reviewed. Please refer to the Assessment and Plan for details on management. I spent 35 minutes with the patient and on the patient's unit, with over 50% spent in coun seling and/or coordination of care. Please refer to the Assessment and Plan for details. Electronically signed by: Morales Lloyd MD 11/21/2019 2:48 PM Portions of this chart may have been created with GPNX voice recognition software. Occasi onal wrong-word or sound-alike substitutions may have occurred due to the inherent nicholson itations of voice recognition software. Please read the chart carefully and recognize, using context, where these substitutions have occurred Pily Gayle ARNP - 11/21/2019 1:12 PM PDTFormatting of this note might be different from the o riginal. [facility] PATIENT NAME: Yumiko Peguero : 1935: AGE: 83 y.o. ADMISSION DATE: 11/19/2019 Hospital Day: Hospital Day: 3 Code Status: DNR (No Code) DATE OF SERVICE: 11/21/2019 TIA Victor CARDIOLOGY DAILY PROGRESS NOTE PRIMARY HOSPITAL PROBLEM: Acute kidney injury (ROSALVA) with acute tubular necrosis (ATN) (HCC) CHIEF COMPLAINT: CAD, HFrEF, severe MR, Diabetes, septic shock and Afib with RVR ASSESSMENT * Acute kidney injury (ROSALVA) with acute tubular necrosis (ATN) (HCC) Assessment & Plan ROSALVA likely due to transient hypotension with ATN. Not currently volume overloaded. Would avoid dehydration. No need for diuretics for now. OK for cautious hydration. Coronary artery disease involving little shell tribe coronary artery of little shell tribe heart without angina pec toris Assessment & Plan Known CAD with ischemic cardiomyopathy. Cath from 2015 shows 100% occlusion of LAD, negativ e iFR of RCA and PCI with Promus SUSAN to left circumflex artery. Troponin mildly elevated 0.5 on 11/19/19. Plan: No aspirin while not on anticoagulation and will wait to restart given elevated liver trans aminases. No statin for same reasons. Continue BB Atrial fibrillation with RVR (HCC) Assessment & Plan Recommend holding amiodarone for now given significant transaminates and 9 second conversio n pause. Currently rate controlled Afib. Plan: Continue Toprol-XL 25 mg daily Depending on liver enzymes and INR in AM, consider restarting Warfarin MCT upon discharge to evaluate further sinus node dysfunction Ischemic cardiomyopathy Assessment & Plan Severely depressed EF and severe mitral regurgitation. Plan: Continue Toprol-XL 25 mg daily for ischemic cardiomyopathy and atrial fibrillation. Start Losartan 12.5 mg daily CMP in AM Left bundle branch block with severe mitral regurgitation and may benefit from MATTRESS SPECIALIST in futur e Bradycardia Assessment & Plan Pauses after amiodarone, but no real documented symptoms, no recurrence while on Toprol-XL. If the patient has recurrent rapid atrial fibrillation alternating with significant bradyca rdia, she may require pacemaker implantation. If pacemaker is required, would consider MATTRESS SPECIALIST P or MATTRESS SPECIALIST D. Mitral regurgitation Assessment & Plan Severe mitral regurgitation from echo 2014, repeat echo today shows Plan: Echocardiogram today Start low dose Losartan 12.5 mg today PLAN Echocardiogram today Losartan 12.5 mg daily CMP and INR In AM Consider restarting Warfarin depending on liver enzymes and INR MCT monitor upon discharge Consider MATTRESS SPECIALIST as outpatient SUBJECTIVE DATA SUBJECTIVE: Sitting up at bedside, no complaints. REVIEW OF SYSTEMS: CV: Lower extremity edema, palpitations Resp: negative OBJECTIVE DATA TELEMETRY: Reviewed on Telemetry 11/21/2019 MEDICATIONS: Scheduled PRN cefTRIAXone 2 g Intravenous Daily insulin lispro 0-6 Units Subcutaneous 4x Daily WC and HS losartan 12.5 mg Oral Daily metoprolol succinate 25 mg Oral Daily miconazole Topical BID probiotic 1 capsule Oral BID WC dextrose 10% Hypoglycemia Management AND POCT Glucose AND dextrose AND dextrose 10% IMAGING: No results found. LABS Recent Labs 11/21/19 0425 11/20/19 0413 11/19/19 1053 WBC 6.70 6.05 10.13 HGB 11.0* 10.4* 11.8 HCT 32.3* 31.2* 35.7 PLT 158 133* 129* | 135* NA 143 132* 134* K 3.4* 3.6 5.0 CL 105 98* 98* CO2 31* 25 13* BUN 20 37* 31* CREA 0.91 1.62* 1.58* GLU 89 107* 192* CALCIUM 8.3* 8.2* 9.4 INR 1.6* -- 5.2* | 5.0* PT -- -- 47.2* Lab Results Component Value Date CHOL 121 09/25/2014 LDL 60 09/25/2014 HDL 37 (L) 09/25/2014 TRIG 122 09/25/2014 TSH 7.28 (H) 09/25/2014 HBA1C 6.3 (H) 09/25/2014 VITAL SIGNS: Vitals Current Average / Min / Max Temp 36.7 C (98.1 F) Temp Min: 36 C (96.8 F) Max: 36.7 C (98.1 F) BP 144/82 BP Min: 131/65 Max: 149/74 HR 61 Pulse Av.4 Min: 57 Max: 70 RR 16 Resp Av Min: 16 Max: 20 Sats 90 % on L/min room air Weight 68.3 kg (150 lb 9.6 oz) Admit: 67.9 kg (149 lb 12.8 oz) INTAKE/OUTPUT Intake/Output Summary (Last 24 hours) at 11/21/2019 1312 Last data filed at 11/21/2019 1156 Gross per 24 hour Intake 1450 ml Output 4450 ml Net -3000 ml PHYSICAL EXAM Admit Weight: Weight: 67.9 kg (149 lb 12.8 oz) Current weight: Weight: 68.3 kg (150 lb 9.6 oz) Body mass index is 33.76 kg/m. GENERAL: Pleasant, in no apparent distress. NECK: Supple. No JVD. CHEST: Good inspiratory effort with no crackles, rhonchi, or wheezes. CARDIAC: Normal S1 and S2. Systolic murmur, no rub or gallops. ABDOMEN: Soft, non-tender, non distended with normal, active bowel sounds. EXTREMITIES: No clubbing, cyanosis, or edema. PULSES: Right: DP 2+, PT 2+ Left: DP 2+, PT 2+ NEUROLOGIC A & O x 3. Non-focal. SKIN: No rashes or skin breakdown. Signed by: TIA Victor 11/21/2019, 1:12 PM Portions of this chart were created with GPNX voice recognition software. Occasional wro ng-word or "sound-alike" substitutions may have occurred due to the inherent limitations of voice recognition software. Please read the chart carefully and recognize, using context, w here those substitutions have occurred. Associated attestation - Canelo Salazar MD - 11/21/2019 1:42 PM PDTAttending Adden dum: Feeling okay, getting her echo when I came in. Not ready to read yet, but preliminarily it shows very severe LV dysfunction with EF 15%, MR that is at least moderate to severe and pr obably severe My pertinent physical exam findings include: GEN: NAD Neck: No JVD Chest: Normal respiratory effort, bilaterally clear to auscultation. Heart: Regular rate and rhythm, No murmurs, rubs or gallops. Ext: No cyanosis or edema. Assessment: 1. Severe cardiomyopathy, EF 15% with significant MR. 2. Atrial fibrillation with 9-second conversion pause, presently sinus rhythm with well-co ntrolled rate and tolerating metoprolol. 3. Acute kidney injury, creatinine back down. Should be able to start a low dose of losar rodriguez today. 4. Has not been out of bed much yet. 5. Elevated liver transaminases, improving 6. INR 5 on 11/18, received vitamin K Plan: 1. Restart low-dose of losartan today. She takes 100 mg daily at home. 2. Recheck INR tomorrow, and if INR has not bumped up again following the vitamin K washou t, then we will restart warfarin. 3. Continue metoprolol. Home dose is 100 mg daily, but she presently is only on 25 due to the 9-second pause. 4. Hold off on further amiodarone. 5. Plan outpatient MCT and also would be worthwhile to see Dr. York as an outpatient to conchis cazares CRTP or MATTRESS SPECIALIST-D. Canelo Salazar MD, [facility] Dorina, Christophe Duvall MD - 11/21/2019 7:45 AM PDT [facility] INPATIENT ROUNDING NOTE Date of Service: 11/21/2019 Rounding Physician: Christophe Cam MD Patient Name: Yumiko Peguero : 1935 Medical Record: [id number] Portions of this note have been copied from previous notes and updated to accurately repres ent the patient's current medical status. Hospital Summary: Yumiko Peguero is a 83 y.o. female with h/o CAD s/p 2 stents, ischemic cardiomyopathy with E F 25-30%, severe MR, atrial fibrillation and DM type II admitted as a transfer from [facility] with E. coli bacteremia and septic shock 11/15/19 and probable right lower lobe pneumonia with co urse complicated by A. fib with RVR, then bradycardia, shock liver and ROSALVA SUBJECTIVE: Feels well No chest pain No shortness of breath No abdominal discomfort Urine output 3950 mls Scheduled Meds: cefTRIAXone 2 g Intravenous Daily insulin lispro 0-6 Units Subcutaneous 4x Daily WC and HS metoprolol succinate 25 mg Oral Daily miconazole Topical BID probiotic 1 capsule Oral BID WC Continuous Infusions: dextrose 10% sodium chloride 0.9% 65 mL/hr at 11/20/19 1008 OBJECTIVE Vitals Current 24 hour Min/Max BP 131/65 BP Min: 131/65 Max: 149/74 HR 57 Pulse Min: 57 Max: 70 Temp 36.2 C (97.2 F) Temp Min: 36 C (96.8 F) Max: 36.7 C (98.1 F) RR 16 Resp Min: 16 Max: 20 Sats SpO2: 92 % on L/min room air SpO2 Min: 90 % Max: 95 % 06/05 0701 - 0606 0700 In: 2120 [P.O.:1330; I.V.:790] Out: 3950 [Urine:3950] Constitutional: Walking comfortably walker, not in any distress Chest: Bilateral air entry positive, no rhonchi or crepitations Cardiovascular: S1-S2 normal, no murmur, no rubs Abdomen: Soft, nontender, bowel sounds positive Extremities: No pretibial or pedal edema Recent Labs Lab 11/21/19 0425 11/20/19 0413 11/19/19 1053 WBC 6.70 6.05 10.13 HGB 11.0* 10.4* 11.8 HCT 32.3* 31.2* 35.7 PLT 158 133* 129* | 135* Recent Labs Lab 11/21/19 0425 11/20/19 0413 11/19/19 1053 NA 143 132* 134* K 3.4* 3.6 5.0 CL 105 98* 98* CO2 31* 25 13* BUN 20 37* 31* CREA 0.91 1.62* 1.58* MG 1.8 -- 2.1 CALCIUM 8.3* 8.2* 9.4 PHOS 2.7 -- -- ALBUMIN 3.1* 3.4 3.9 Diagnostic Studies: Available data and images were reviewed personally. Significant results and findings are ad dressed here or in the Assessment and Plan. ASSESSMENT AND PLAN ROSALVA (creatinine 0.8 on 11/18/19, 1.6 on 11/19/19 and presenting creatinine 1.58 on 11/19/19 at [facility]): Non-oliguric, ATN from septic shock, A. fib with RVR and bradycardia induced hemodynamic fl uctuations and hypotension causing prerenal (FeNa 0.28% and FeUrea 33.13% on 11/19/19 while re ceiving IV fluids) state and renal hypoperfusion in the setting of impaired autoregulation a ssociated with age and outpatient ARB use GN unlikely without significant proteinuria or hematuria UA 11/19/19 specific gravity 1.006, pH 5, protein 30, blood moderate, WBC 3, RBC less than 1, bacteria present. Repeat UA had WBCs and RBCs and INR supratherapeutic at 5.2 on 11/19/19 Hepatitis panel negative for B and C 11/19/19 Creatinine normalized with good urine output Hold home medication losartan Avoid nephrotoxins including NSAIDs and IV contrast No need for renal replacement therapy at this time ELECTROLYTES: Hypokalemia. Supplemented Metabolic acidosis. Secondary to severe lactic acidosis of 9 and shock liver on presentatio n. Resolved with resolution of lactic acidosis and bicarb drip, bicarb drip discontinued on 11/19 Hyponatremia. From low osmole intake and shock liver. Asymptomatic. Resolved with improved to osmole intake and post ATN diuresis Shock liver with AST 7030, ALT 3283 and total bilirubin 3.5 on 11/19/19, improving VOLUME STATUS: Euvolemic S albumin acceptable Echo 09/26/14 LVEF 25-30%, RV normal size, LA mildly dilated, severe MR, trace AR and mild T R With improved oral intake normal saline drip discontinued BP: Acceptable control. Continue to monitor ANEMIA: Hb stable and acceptable. Thrombocytopenia with supratherapeutic INR likely from shock live r, resolved. Continue to monitor MEDICATION DOSAGING: Please dose medications renally With normalized renal function and good urine output, I'll sign off. Please call for any c oncerns Please feel free to contact me with any questions, Electronically signed by: Christophe Cam MD, 11/21/2019, 7:45 AM ope, Rubina Ibanez D - 11/20/2019 2:33 PM PDT [facility] Patient: Yumiko Peguero Date of : 1935 Admit Date: 11/19/2019 Date of Service: 11/20/2019 PCP: Eva An MD Hospital Day: Hospital Day: 2 Hospital Course: 83 yo female with h/o NIDDM, ischemic cardiomyopathy with EF 25-30% by TTE 2014, severe german ral regurgitation, CAD with prior PCI x2, and atrial fib who presented to [facility] in [place] on 11/14 with productive cough and fever/chills, found to be in septic sh ock 2/2 presumed PNA and almonte-sensitive Ecoli bacteremia (repeat bcx 11/16 negative). UA was un remarkable for infection. CXR showed ?right lung base prominence - artifact vs early infiltr ate. Admitted to the ICU and required brief pressor support. Was started on CTX/azithromycin . COVID negative. Initial TNI and EKG negative. BNP was >700, lactate 4. Course complicated by afib with RVR which spontaneously converted to SR with treatment of sepsis and resuming h ome metoprolol. She was noted to have a 9 second pauses while in afib. TTE showed EF 25%, un changed from prior. She was started on eliquis. On 11/16, she developed SOB with concern for volume overload on imaging so was diuresed. She did have mild TNI bump to 0.08. On 11/17, she went back into afib RVR, treated with amiodarone bolus which resulted in bradycardia (HR range 50s-70s). Overnight she was noted to have dec reased UOP (documented 45 cc only but no shea was in place for more accurate measurements) and on 11/18, labs notable for worsening transaminitis with AST 1500, ALT 1000 (pt had elevate d LFTs on admit which had improved with treatment of sepsis), Cr 1.6 from 0.8 the day prior, bicarb 12 and potassium 5.9. EKG without peaked T-waves but did show QTc 601 ms and QRS 152 ms. She was given calcium gluconate and started on a bicarb gtt. [facility]. York ([facility]) was called given pt's h/o ICM, afib, 9 second pause and he w ill consult. Assessment and Plan: Principal Problem: Acute kidney injury (ROSALVA) with acute tubular necrosis (ATN) Active Problems: Septic shock Bacteremia due to Escherichia coli Bradycardia Ischemic cardiomyopathy Atrial fibrillation with RVR Hyperkalemia Shock liver Type 2 diabetes mellitus Prolonged Q-T interval on ECG Coronary artery disease involving little shell tribe coronary artery of little shell tribe heart without angina p ectoris Metabolic acidosis Severe sepsis 2/2 PNA and Ecoli bacteremia completed 5 day course of azithromycin/CTX for PNA, continues on CTX for almonte-sensitive Ecol i bacteremia. Repeat Bcx 11/16 negative Now on room air and in no respiratory distress Plan to continue 7 day abx course from negative blood cultures continue ceftriaxone 2 g daily, Day 4/7 ROSALVA, suspect ATN Metabolic acidosis in setting of septic shock on presentation, diuresis, bradycardia Lactic acidosis at presentation with venous lactate of 9.0, down trended to resolution at 1 .7 Cr 0.8 --> 1.6 Urine output 850 cc, nonoliguric Nephrology consulted Holding home losartan Ischemic cardiomyopathy, EF 25% H/o CAD prior PCI to LAD 1996 and LCx 2014 EF 25-30% by TTE 2014, unchanged by TTE done at OSH Cardiology consulting Atrial fib with RVR with resultant bradycardia after amiodarone bolus at OSH, HR 50s-70s noted to have 9 sec pause after prior spontaneous conversion to SR Cardiology consulted Rate controlled currently on low dose metoprolol Management per cards Shock liver in setting of septic shock INR 5.0 ALP 247-->213 ALT 3283-->2925 AST 7030-->4869 Bilirubin 3.5-->1.7 Discussed with hepatology, who is following peripherally Continue to monitor Giving Vit K Prolonged Qtc 601 ms at OSH, 571 ms here Avoid QTc prolonging meds DM2 Hold oral home meds ISS Disposition: Consulted PT/OT, SW consulted, Will need SNF CODE STATUS: DNR (No Code) DVT prophylaxis: SCDs Subjective: Breathing well No CP No SOB No NVD Generally feeling week No palpitations No syncope Mild RUQ tenderness, but otherwise no abdo pain Urinating Bowels moving Objective: Temp: [36.4 C (97.5 F)-36.7 C (98.1 F)] 36.6 C (97.8 F) Pulse: [58-70] 58 Resp: [20] 20 BP: (102-156)/(60-80) 126/72 INPUT/OUTPUT: Intake/Output Summary (Last 24 hours) at 11/20/2019 1509 Last data filed at 11/20/2019 1331 Gross per 24 hour Intake 3026 ml Output 1950 ml Net 1076 ml Physical Exam Constitutional: She is oriented to person, place, and time. No distress. Lying in bed, sitting up eating breakfast, no distress HENT: Head: Normocephalic and atraumatic. Eyes: Conjunctivae and EOM are normal. Cardiovascular: Normal rate. irreg irreg Pulmonary/Chest: Effort normal. No stridor. No respiratory distress. No wheezing, no crackles on anterior exam Abdominal: Soft. Bowel sounds are normal. Mild RUQ tenderness Musculoskeletal: General: No edema. Neurological: She is alert and oriented to person, place, and time. Skin: Skin is warm and dry. She is not diaphoretic. Psychiatric: Affect normal. Scheduled PRN cefTRIAXone 2 g Intravenous Daily insulin lispro 0-6 Units Subcutaneous 4x Daily WC and HS metoprolol succinate 25 mg Oral Daily miconazole Topical BID phytonadione (VITAMIN K) IVPB 10 mg Intravenous Once probiotic 1 capsule Oral BID WC dextrose 10% sodium chloride 0.9% 65 mL/hr at 11/20/19 1008 Hypoglycemia Management AND POCT Glucose AND dextrose AND dextrose 10% All pertinent labs and imaging have been reviewed. Please refer to the Assessment and Plan for details on management. I spent 35 minutes with the patient and on the patient's unit, with over 50% spent in coun seling and/or coordination of care. Please refer to the Assessment and Plan for details. Electronically signed by: Morales Lloyd MD 11/20/2019 3:09 PM Portions of this chart may have been created with [employer]PN[employer] voice recognition software. Occasi onal wrong-word or sound-alike substitutions may have occurred due to the inherent nicholson itations of voice recognition software. Please read the chart carefully and recognize, using context, where these substitutions have occurred AngelywNadia olmedo MD - 11/20/2019 9:21 AM PDTFormatting of this note might be different from the origi nal. Cardiology progress NOTE [facility] Card[facility] Date of Service: 11/20/2019 Rounding Physician: Nadia Cotter MD Patient Name: Yumiko Peguero : 1935 Medical Record: [id number] Primary Hospital Problem: Acute kidney injury (ROSALVA) with acute tubular necrosis (ATN) (HCC) ASSESSMENT AND PLAN 83 yo F PMH HFrEF, CAD with occluded LAD and PCI to Lcx (15'), ICM (EF 25%), PVD, PAFIB, se fox MR and DMT2 who initially presented to [facility] in [place], [place] on 11/14 with cough and malaise, found to have e. Coli bacteremia c/b septic shock with ARF, shock liver, and A FIB with RVR. Initially patinet responded to metoprolol but later went back into Afib with R VR and amio was started prior to transfer to [facility]. She developed a 9 second sinus pauses wit h amiodarone gtt prior to converting to sinus. Has remains in asymptomatic bradycardia since admission. Cardiology was consulted for cardiomyopathy and AFIB. AFIB with RVR, resolved ICM (EF - 25-30% last echo 09/2014) Bradycardia, asymptomatic. Suspect some sinus node dysfunction, initial pause was during co nversion to sinus with amiodarone. No alarms noted on tele. E. Coli Bacteremia, resolving on CTX ROSALVA (baseline creatinine 0.8) 2/2 CRS type I and ATN Normocytic anemia, 2/2 iatrogenic blood draws - Currently rate controlled with asymptomatic bradycardia. Tolerating low dose metoprolol, sepsis appears to be resolving and repeat blood cultures negative. Would uptriate as tolerat ed if rate control becomes a issue. - Start low dose of eliquis (corrected for age, cr) today, and continue as monotherapy. I h ave discontinued aspirin and heparin ppx. - Avoid further amiodarone given shock liver. - Appears euvolemic if not slightly hypovolemic, no diuresis. - Consider trial of initiation of low dose SHEILA inhibitor once creatinine has stabilized. In the future once medically optimized with underlying chronic LBB, pt may meet criteria for C RT-P or MATTRESS SPECIALIST-D. Will follow up outpatient - will arrange for MCT monitor before discharge to evaluate for further sinus node dysfunct ion. SUBJECTIVE DATA Chief Complaint: F/u bradycardia, and AFIb RVR No acute events overnight. Remains in sinus, rate controlled on low dose metoprolol. Patient states she feels a little groggy this am, took a nap late last night and did not sl eep well. Otherwise feels well, no sob, palpitations, chest pressure or pain. REVIEW OF SYSTEMS: Please see above for further details. ROS otherwise negaitve OBJECTIVE DATA VITAL SIGNS: BP 126/72 | Pulse 58 | Temp 36.6 C (97.8 F) (Temporal) | Resp 20 | Ht 1.422 m (4' 8") | Wt 68 kg (150 lb) | SpO2 (!) 88% | BMI 33.63 kg/m Vital sign ranges for last 24hrs: Input and output for last 24hrs: Temp: [36 C (96.8 F)-36.7 C (98.1 F)] 36.6 C (97.8 F) Pulse: [55-70] 58 Resp: [20-24] 20 BP: (102-156)/(60-80) 126/72 SpO2 Av.7 % Min: 88 % Max: 99 % 11/17 1901 - 11/19 0700 In: 1883 [P.O.:540; I.V.:1293] Out: 1350 [Urine:1350] Intake/Output Summary (Last 24 hours) at 11/20/2019 0921 Last data filed at 11/20/2019 0900 Gross per 24 hour Intake 2553 ml Output 1500 ml Net 1053 ml MEDICATIONS: Scheduled Meds: aspirin 81 mg Oral Daily cefTRIAXone 2 g Intravenous Daily heparin 5,000 Units Subcutaneous 2 times per day insulin lispro 0-6 Units Subcutaneous 4x Daily WC and HS metoprolol succinate 25 mg Oral Daily probiotic 1 capsule Oral BID WC Continuous Infusions: dextrose 10% sodium chloride 0.9% PRN Meds:Hypoglycemia Management AND POCT Glucose AND dextrose AND dextrose 10% PHYSICAL EXAMINATION: Constitutional: good hygiene, Normal Weight. no acute distress. HEENT: ncat, mmm, eomi, perrla, b/l sclera nonicteric NECK: supple no JVD CV: rrr, s1s2, faint systolic ejection murmur at RSB LUNGS: ctab, nl effort ABD: soft nt/nd, owel sounds normoactive EXT: no C/c/e, +2/dp/pt NEURO: A/o x3, no focal deficits PSYCH: nl affect, nl speech SKIN: intact, warm, dry no rashes, no lesions,no erythema DIAGNOSTICS: Labs: Lab Results Component Value Date CREA 1.62 (H) 11/20/2019 BUN 37 (H) 11/20/2019 NA 132 (L) 11/20/2019 K 3.6 11/20/2019 CL 98 (L) 11/20/2019 CO2 25 11/20/2019 Lab Results Component Value Date WBC 6.05 11/20/2019 HCT 31.2 (L) 11/20/2019 MCV 84.8 11/20/2019 LABPLAT 229 10/01/2014 PLT 133 (L) 11/20/2019 Lab Results Component Value Date HBA1C 6.3 (H) 09/25/2014 Lab Results Component Value Date CKMB 1.1 09/24/2014 TROPONIN 0.538 (AA) 11/19/2019 Lab Results Component Value Date INR 5.0 (H) 11/19/2019 INR 5.2 (H) 11/19/2019 INR 1.5 (A) 11/09/2014 PROTIME 46.2 (H) 11/19/2019 Lab Results Component Value Date CHOL 121 09/25/2014 Lab Results Component Value Date HDL 37 (L) 09/25/2014 Lab Results Component Value Date LDL 60 09/25/2014 No results found for: LDLDIRECT Lab Results Component Value Date TRIG 122 09/25/2014 No results found for: CHOLHDL Lab Results Component Value Date TSH 7.28 (H) 09/25/2014 Telemetry: Sinus bradycardia, no alarms Please feel free to contact me with any questions, Electronically signed by: Nadia Cotter MD, DATE/TIME: 11/20/2019 9:21 AM [facility] Associated attestation - Canelo Salazar MD - 11/21/2019 12:16 PM PDTAttending Adden dum: Staying in sinus rhythm now off of amiodarone. My pertinent physical exam findings include: GEN: NAD Neck: No JVD Chest: Normal respiratory effort, bilaterally clear to auscultation. Heart: Regular rate and rhythm, No murmurs, rubs or gallops. Ext: No cyanosis or edema. Assessment: 1. A. fib with 9-second conversion pause while on amiodarone. 2. So far tolerating a low-dose of metoprolol. Plan: 1. No echo since 09/29, so we will check a new echocardiogram tomorrow. 2. Continue low-dose metoprolol. 3. We were going to start some Eliquis at the lower dose today, but the patient declined b ecause of her elevated liver transaminases, and appropriately given high INR on 11/18. INR edward n to 1.6 today. Recheck tomorrow along with transaminases to see if we can start something t omorrow. Canelo Salazar MD, [facility] Christophe Cam MD - 11/20/2019 7:38 AM PDT [facility] INPATIENT ROUNDING NOTE Date of Service: 11/20/2019 Rounding Physician: Christophe Cam MD Patient Name: Yumiko Peguero : 1935 Medical Record: [id number] Portions of this note have been copied from previous notes and updated to accurately repres ent the patient's current medical status. Hospital Summary: Yumiko Peguero is a 83 y.o. female with h/o CAD s/p 2 stents, ischemic cardiomyopathy with E F 25-30%, severe MR, atrial fibrillation and DM type II admitted as a transfer from OSH with E. coli bacteremia and septic shock 11/15/19 and probable right lower lobe pneumonia with co urse complicated by A. fib with RVR, then bradycardia, shock liver and ROSALVA SUBJECTIVE: Feels well No chest pain No shortness of breath No abdominal discomfort Urine output 1350 mls Scheduled Meds: aspirin 81 mg Oral Daily cefTRIAXone 2 g Intravenous Daily heparin 5,000 Units Subcutaneous 2 times per day insulin lispro 0-6 Units Subcutaneous 4x Daily WC and HS metoprolol succinate 25 mg Oral Daily probiotic 1 capsule Oral BID WC Continuous Infusions: dextrose 10% sodium bicarbonate infusion in QS base 65 mL/hr at 11/20/19 0233 OBJECTIVE Vitals Current 24 hour Min/Max BP 126/72 BP Min: 102/69 Max: 156/77 HR 58 Pulse Min: 55 Max: 70 Temp 36.6 C (97.8 F) Temp Min: 36 C (96.8 F) Max: 36.7 C (98.1 F) RR 20 Resp Min: 20 Max: 24 Sats SpO2: (!) 88 % on L/min room air SpO2 Min: 88 % Max: 99 % 11/18 0701 - 11/19 0700 In: 1883 [P.O.:540; I.V.:1293] Out: 1350 [Urine:1350] Constitutional: Lying Comfortably, not in any distress Chest: Bilateral air entry positive, no rhonchi or crepitations Cardiovascular: S1-S2 normal, no murmur, no rubs Abdomen: Soft, non tender, bowel sounds positive Extremities: No pretibial or pedal edema Recent Labs Lab 11/20/19 0413 11/19/19 1053 WBC 6.05 10.13 HGB 10.4* 11.8 HCT 31.2* 35.7 PLT 133* 129* | 135* Recent Labs Lab 11/20/19 0413 11/19/19 1053 NA 132* 134* K 3.6 5.0 CL 98* 98* CO2 25 13* BUN 37* 31* CREA 1.62* 1.58* MG -- 2.1 CALCIUM 8.2* 9.4 ALBUMIN 3.4 3.9 Diagnostic Studies: Available data and images were reviewed personally. Significant results and findings are ad dressed here or in the Assessment and Plan. ASSESSMENT AND PLAN ROSALVA (creatinine 0.8 on 11/18/19, 1.6 on 11/19/19 and presenting creatinine 1.58 on 11/19/19 at [facility]): Non-oliguric, ATN from septic shock, A. fib with RVR and bradycardia induced hemodynamic fl uctuations and hypotension causing prerenal (FeNa 0.28% and FeUrea 33.13% on 11/19/19 while re ceiving IV fluids) state and renal hypoperfusion in the setting of impaired autoregulation a ssociated with age and outpatient ARB use GN unlikely without significant proteinuria or hematuria UA 11/19/19 specific gravity 1.006, pH 5, protein 30, blood moderate, WBC 3, RBC less than 1, bacteria present. Repeat UA had WBCs and RBCs and INR supratherapeutic at 5.2 on 11/19/19 Creatinine stable with good urine output Strict input output monitor. Monitor renal panel Hold home medication losartan Avoid nephrotoxins including NSAIDs and IV contrast No need for renal replacement therapy at this time ELECTROLYTES: Metabolic acidosis. Secondary to severe lactic acidosis of 9 and shock liver on presentatio n. Resolved with resolution of lactic acidosis and bicarb drip, bicarb drip discontinued Hyponatremia. From low osmole intake and shock liver. Asymptomatic. Slightly lower today. Expect to improve with improvement in osmole intake Shock liver with AST 7030, ALT 3283 and total bilirubin 3.5 on 11/19/19, better Please monitor renal panel VOLUME STATUS: Euvolemic S albumin acceptable Echo 09/26/14 LVEF 25-30%, RV normal size, LA mildly dilated, severe MR, trace AR and mild T R IV bicarb drip changed to normal saline at 65 cc/h BP: Acceptable control with resolution of asymptomatic low BPs with IV hydration. Continue to m onitor ANEMIA: Hb lower today. Thrombocytopenia with supratherapeutic INR likely from shock liver. Continu e to monitor MEDICATION DOSAGING: Please dose medications renally Please feel free to contact me with any questions, Electronically signed by: Christophe Cam MD, 11/20/2019, 7:38 AM Patria Valera, Bending Press Operator - 11/19/2019 11:39 AM PDT PHARMACY SERVICES: ADMISSION MEDICATION HISTORY Yumiko Peguero is a 83 y.o. female admitted on 11/19/2019 10:19 AM. Diagnoses of Acute kidney injury (ROSALVA) with acute tubular necrosis (ATN) (HCC), Atrial fibrillation with RVR (HCC), Ba cteremia due to Escherichia coli, Bradycardia, Coronary artery disease involving [place] marco nary artery of [place] heart without angina pectoris, Hyperkalemia, Ischemic cardiomyopathy, Metabolic acidosis, Prolonged Q-T interval on ECG, Septic shock (HCC), and Shock liver were pertinent to this visit. The best possible medication list was reviewed with patient over the phone. Comments: Patient was a reliable historian at time of pharmacy interview. The patient stat ed that she fills 1 mg and 2.5 mg strengths of Warfarin and alternates the tablets every oth er day however it is prescribed to take 2.25 mg daily (1/2 tablet of 2.5 mg with a 1 mg tabl et) The patient's medication list was obtained from the following sources: [facility] Confidence Level: medium. Medication History Requested by Provider: yes Best Possible [employer]ELOPER Medication List After Pharmacy Review Prior to Admission medications Medication Sig Pharmacy findings acetaminophen (TYLENOL) 325 mg tablet Take 650 mg by mouth every 4 hours as needed for Pain . added aspirin 81 MG EC tablet Take 1 tablet by mouth Daily. atorvaSTATin (LIPITOR) 40 mg tablet Take 40 mg by mouth nightly. added Poagsdvydev-Hipkmapjb-Onm C-Mn (GLUCOSAMINE CHONDR 500 COMPLEX PO) Take 1 tablet by mouth D aily. glucose 4 G chewable tablet Take 4 g by mouth as needed for Low blood sugar. losartan (COZAAR) 100 MG tablet Take 100 mg by mouth Daily. added metoprolol succinate (TOPROL-XL) 100 mg ER tablet Take 100 mg by mouth Daily. added montelukast (SINGULAIR) 10 mg tablet Take 10 mg by mouth nightly. added nitroglycerin (NITROSTAT) 0.[address] 0.4 mg under the tongue every 5 minutes as needed for Chest pain. added pseudoePHEDrine (SUDAFED) 30 mg tablet Take 60 mg by mouth Twice daily as needed for Conge stion. added SITagliptin-metFORMIN HCl ER (JANUMET XR) 50-1000 MG TB24 Take 1 tablet by mouth nightly. a dded warfarin (COUMADIN) 1 mg tablet Take 1 mg by mouth Every other day. 1 mg every other day al ternating with 2.5 mg warfarin (COUMADIN) 1 mg tablet Take 2.5 mg by mouth Every other day. 2.5 mg every other da y alternating with 1 mg Removed therapy: Calcium-cholecalciferol (not taking) Flonase (no fill history) Flovent HFA (no fill history) Glipizide (no fill history) Metformin (no fill history) saxagliptin (no fill history) Allergies Amoxicillin; Azithromycin; Clavulanic acid; Penicillins; and Clindamycin Reviewed by Pharmacy? yes Medication history performed and electronically signed by Patria Casillas, Bending Press Operator 020 11:40 AM Associated attestation - Wellington Gleason RPH - 11/19/2019 12:33 PM PDTReviewed ORACLE FORMS DEVELOPER med list changes and agree with discrepancies noted. Electronically signed by: Wellington olmedo RPH 11/19/2019 12:33 PM Pharmacist comments: documented in this encounter H&P Notes Madison Stark MD - 11/19/2019 8:38 AM PDT Patient: Yumiko Peguero Date of : 1935 Admit Date: (Not on file) Date of Service: 11/19/2019 PCP: Eva An MD Chief Complaint: sepsis History of Present Illness: Yumiko Peguero is a 83 yo female with h/o NIDDM, ischemic cardiomyopathy with EF 25-30% by T TE 2014, severe mitral regurgitation, CAD with prior PCI x2, and atrial fib who presented to [facility] in [facility] on 11/14 with productive cough and fever/chills, found to be in septic shock 07/19 presumed PNA and almonte-sensitive Ecoli bacteremia (repeat bcx 11/16 n egative). UA was unremarkable for infection. CXR showed ?right lung base prominence - artifa ct vs early infiltrate. Admitted to the ICU and required brief pressor support. Was started on CTX/azithromycin. COVID negative. Initial TNI and EKG negative. BNP was >700, lactate 4. Course complicated by afib with RVR which spontaneously converted to SR with treatment of se psis and resuming home metoprolol. She was noted to have a 9 second pauses while in afib. TT E showed EF 25%, unchanged from prior. She was started on eliquis. On 11/16, she developed SOB with concern for volume overload on imaging so was diuresed. She did have mild TNI bump to 0.08. On 11/17, she went back into afib RVR, treated with amiodarone bolus which resulted in bradycardia (HR range 50s-70s). Overnight she was noted to have dec reased UOP (documented 45 cc only but no shea was in place for more accurate measurements) and on 11/18, labs notable for worsening transaminitis with AST 1500, ALT 1000 (pt had elevate d LFTs on admit which had improved with treatment of sepsis), Cr 1.6 from 0.8 the day prior, bicarb 12 and potassium 5.9. EKG without peaked T-waves but did show QTc 601 ms and QRS 152 ms. She was given calcium gluconate and started on a bicarb gtt. Transfer to [facility] for [facility] level of care. Dr. York ([facility]) was called given pt's h/o ICM, afib, 9 second pause and he w ill consult. ADDENDUM (13:30) - labs here notable for significant transaminitis, lactate 9, INR 5. DIC p brittney with elevated fibrinogen argues against DIC. Liver failure likely cause of elevated INR (not on coumadin currently). IVFs per Renal. Recheck lactate at 15:00). Review of Systems: A 10-point ROS was negative except for the pertinent positives as mentioned in the HPI. Sys tems reviewed include: General, HEENT, Cardiovascular, Respiratory, GI, , MSK, Heme, Vascu lar, Endocrine. Medical and Surgical History: Past Medical History: Diagnosis Date Asthma Atrial fibrillation (HCC) On coumadin CAD (coronary artery disease) HLD (hyperlipidemia) HTN (hypertension) Mitral regurgitation Severe per echo 09/26/14 w/EF 25-30% Type II diabetes mellitus (HCC) Past Surgical History: Procedure Laterality Date CERVIX LESION DESTRUCTION CO2 laser CORONARY ANGIOPLASTY WITH STENT PLACEMENT 1996 stent to the LAD CORONARY ANGIOPLASTY WITH STENT PLACEMENT 09/30/14 Angioplasty for the mid left circumflex artery through the left radialartery using 1 drug- eluting stent Promus Premier 3 x 38 mm. HYSTERECTOMY Family History: family history includes Other (see comment) in her mother and unknown relative; Stroke in h er father. Social History: reports that she quit smoking about 5 years ago. Her smoking use included cigarettes. She has a 8.00 pack-year smoking history. She has never used smokeless tobacco. She reports curr ent alcohol use. She reports that she does not use drugs. Home Medications/Allergies: Outpatient Medications aspirin 81 MG EC tablet Take 1 tablet by mouth Daily. Calcium Carb-Cholecalciferol (CALCIUM 600 + D PO) Take 1 tablet by mouth 2 times daily. fluticasone (FLONASE) 50 mcg/nasal spray 1 spray by Nasal route as needed for Allergies. fluticasone (FLOVENT HFA) 44 mcg/puff inhaler Inhale 1 puff into the lungs as needed. glipiZIDE (GLUCOTROL XL) 10 MG 24 hr tablet Take 1 tablet by mouth 2 times daily. Mamvdfnuqpp-Dsikkktuf-Dtx C-Mn (GLUCOSAMINE CHONDR 500 COMPLEX PO) Take 1 tablet by mouth Daily. glucose 4 G chewable tablet Take 4 g by mouth as needed for Low blood sugar. metFORMIN (GLUCOPHAGE) 500 mg tablet Take 2 tablets by mouth Daily. saxagliptin (ONGLYZA) 5 mg TABS tablet Take 1 tablet by mouth Daily. warfarin (COUMADIN) 2.5 mg tablet As directed Allergies Allergen Reactions Amoxicillin Itching Azithromycin Itching Clavulanic Acid Other (See Comments) Unknown Clindamycin Itching Penicillins Itching Physical: Vital Signs None Wt Readings from Last 3 Encounters: 02/24/15 78.5 kg (173 lb) Gen: awake, alert. no acute distress. Appears stated age Eyes: sclera non-icteric ENMT: moist mucous membranes, good dentition CV: duglas, regular rhythm, no murmur Lungs: CTAB without wheezes, rales, rhonchi. Good effort. On RA Abd: soft, NT, ND, +bowel sounds Exts: No clubbing, cyanosis, edema Skin: No rash, no jaundice. Warm, dry Neuro: No focal deficits, moves all extremities spontaneously Psych: oriented x3. Good insite/judgement Labs and Imaging: No results found for this or any previous visit (from the past 24 hour(s)). No results found. ECG (personally reviewed today): HR 55 bpm. SR. LBBB (had on prior ekgs). TWI inferior/late ral leads (chronic) Assessment and Plan: Severe sepsis 2/2 PNA and Ecoli bacteremia - completed 5 day course of azithromycin/CTX for PNA, continues on CTX for almonte-sensitive Ec real bacteremia. Repeat Bcx 6/2 negative - recommend 7 day abx course from negative bcx (can de-escalate/change to po once more stab le) ROSALVA, suspect ATN Metabolic acidosis - in setting of septic shock on presentation, diuresis, bradycardia - Cr 0.8 --> 1.6 overnight with reported 45 cc UOP - check BMP here. Consider Renal consult - shea with strict I/O. Check UA. Bicarb gtt - renally dose meds, avoid nephrotoxic agents Ischemic cardiomyopathy, EF 25% H/o CAD - prior PCI to LAD 1996 and LCx 2014 - EF 25-30% by TTE 2014, unchanged by TTE done at OSH - cardiology (Dr. York) to consult Atrial fib with RVR - with resultant bradycardia after amiodarone bolus - at OSH, HR 50s-70s - noted to have 9 sec pause after prior spontaneous conversion to SR - Cardiology to consult - pt unclear about home meds. Knows she was on coumadin at one point, although not on home med list from OSH. Have asked pharm to reconcile - was started on Eliquis at OSH - hold for now pending cardiology eval in case procedure is needed Shock liver - in setting of septic shock - AST 1500, ALT 1000 at OSH - repeat LFTs now - avoid hypotension. Consider Hepatology consult Prolonged Qtc 601 ms at OSH, 571 ms here Avoid QTc prolonging meds DM2 Hold oral home meds (pharm to reconcile) SSI ACHS Social/Dispo Consult PT/OT once pt more stable SW consulted as pt will likely need placement on d/c Active Hospital Problems Diagnosis Acute kidney injury (ROSALVA) with acute tubular necrosis (ATN) Septic shock Bacteremia due to Escherichia coli Bradycardia Ischemic cardiomyopathy Atrial fibrillation with RVR Hyperkalemia Shock liver Type 2 diabetes mellitus Prolonged Q-T interval on ECG Coronary artery disease involving little shell tribe coronary artery of little shell tribe heart without angina pectoris Metabolic acidosis Resolved Hospital Problems No resolved problems to display. Disposition: TBD CODE STATUS: DNR, ok with intubation DVT prophylaxis: subcutaneous heparin I expect this patient will be hospitalized for greater than 2-midnights and expect the post -hospital plan to be discharge to a skilled or intermediate care nursing facility. I spent 75 minutes with the patient and on the patient's unit, with over 50% spent in couns eling and/or coordination of care. Please refer to the Assessment and Plan for details. Electronically signed by: Madison Stark MD 11/19/2019 8:51 AM Portions of this chart may have been created with GPNX voice recognition software. Occasi onal wrong-word or sound-alike substitutions may have occurred due to the inherent nicholson itations of voice recognition software. Please read the chart carefully and recognize, using context, where these substitutions have occurred documented in this enco unter Consult Notes Christophe Cam MD - 11/19/2019 2:08 PM PDT [facility] Nephrology Consultation Patient Name: Yumiko Peguero : 1935 Medical Record: [id number] DATE OF SERVICE: 11/19/2019 CONSULTING PHYSICIAN: Christophe Cam MD REFERRING PHYSICIAN: Dr. Stark REASON FOR CONSULTATION: ROSALVA HISTORY OF PRESENT ILLNESS Yumiko Peguero is a 83 y.o. female with h/o CAD s/p 2 stents, ischemic cardiomyopathy with E F 25-30%, severe MR, atrial fibrillation and DM type II admitted as a transfer from OSH with E. coli bacteremia and septic shock 11/15/19 and probable right lower lobe pneumonia with co urse complicated by A. fib with RVR, then bradycardia, shock liver and ROSALVA Patient was admitted to [facility] in [facility] on 11/15/19 with feve r, chills and productive cough and was found to have probable right lower lobe pneumonia and septic shock with E. coli bacteremia. COVID 19 was negative. Patient had A. fib RVR, lactate of 4 and also had 9 second pauses while she was in A. fib. She converted spontaneously to sinus rhythm and echo had showed LVEF as 25%. On 11/16 she had complained of shortness of breath and with concern for volume overload received diuresis. On 11/17 patient went into A. fib RVR again and received amiodarone bolus which caused bradyca rdia and on 11/18 patient was noted to have worsening transaminitis, creatinine 1.6 compared t o point date of 11/17 and she was transferred to [facility]. Patient's urine outpu t was low overnight on 11/17 reportedly Patient's creatinine on coming to our hospital is stable at 1.58, troponin mildly elevated at 0.538, creatinine stable at 1.58, metabolic acidosis 13 with anion gap with lactic acidos is of 9. UA initially did not show any WBCs or RBCs but repeat sample showed WBCs and RBCs. Patient is coagulopathy with INR 5.2 likely secondary to shock liver Patient's home medications included losartan 100 mg daily Patient occasionally takes Aleve but the last time she took it was 3 months ago Patient says she feels well and has no complaints, no chest pain, shortness of breath, dizz iness, abdominal discomfort, urinary complaints or any new skin rashes. No nausea, vomiting or diarrhea PAST MEDICAL HISTORY Past Medical History: Diagnosis Date Asthma Atrial fibrillation (HCC) On coumadin CAD (coronary artery disease) HLD (hyperlipidemia) HTN (hypertension) Mitral regurgitation Severe per echo 09/26/14 w/EF 25-30% Type II diabetes mellitus (HCC) CURRENT MEDICATIONS Scheduled Meds: aspirin 81 mg Oral Daily cefTRIAXone 1 g Intravenous Daily heparin 5,000 Units Subcutaneous 2 times per day insulin lispro 0-6 Units Subcutaneous 4x Daily WC and HS metoprolol succinate 25 mg Oral Daily PRN Meds:Hypoglycemia Management AND POCT Glucose AND dextrose AND dextrose 10% ALLERGIES Allergies Allergen Reactions Amoxicillin Itching Azithromycin Diarrhea and Itching Clavulanic Acid Itching Unknown Penicillins Itching Clindamycin Itching and Rash REVIEW OF SYSTEMS A 10 systems (HOME VISITOR, CVS, respiratory, ENT, GI, , skin, hematology, musculoskeletal, psychi atry) review of systems was obtained and was positive for points mentioned above SOCIAL HISTORY Social History Social History Narrative SOCIAL HISTORY: 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 She does not currently smoke cigarettes. She quit about 1 year ago. Previously she used to smok e 10 cigarettes a week times 30 to 40 years. Alcohol about 1-2 times monthly. No recreationa l drugs. She reports that she quit smoking about 5 years ago. Her smoking use included cigarettes. S he has a 8.00 pack-year smoking history. She has never used smokeless tobacco. She reports c urrent alcohol use. She reports that she does not use drugs. FAMILY HISTORY Family History Problem Relation Age of Onset Other (see comment) Mother D 80-"Old age" Stroke Father D 80 Other (see comment) Unknown No siblings PHYSICAL EXAM Vitals Current 24 hour Min/Max BP 118/77 BP Min: 118/77 Max: 118/77 HR 55 Pulse Min: 55 Max: 55 Temp 36 C (96.8 F) Temp Min: 36 C (96.8 F) Max: 36 C (96.8 F) RR 24 Resp Min: 24 Max: 24 Sats SpO2: 99 % on L/min room air SpO2 Min: 99 % Max: 99 % No intake/output data recorded. Constitutional: Lying Comfortably, not in any distress Eyes: Pupils bilaterally normal size Mouth: Mucous membranes are hydrated Chest: Bilateral air entry positive, no rhonchi or crepitations Cardiovascular: S1-S2 normal, no murmur, no rubs Abdomen: Soft, non tender, bowel sounds positive Extremities: No pretibial or pedal edema Neurology: Grossly non focal Skin: No rash LABORATORY DATA: Recent Labs Lab 11/19/19 1053 WBC 10.13 HGB 11.8 HCT 35.7 PLT 129* | 135* Recent Labs Lab 11/19/19 1053 NA 134* K 5.0 CL 98* CO2 13* BUN 31* CREA 1.58* MG 2.1 CALCIUM 9.4 ALBUMIN 3.9 Diagnostic Studies: Available data and images were reviewed personally. Significant results and findings are ad dressed here or in the Assessment and Plan. ASSESSMENT AND PLAN Yumiko Peguero is a 83 y.o. female with h/o CAD s/p 2 stents, ischemic cardiomyopathy with E F 25-30%, severe MR, atrial fibrillation and DM type II admitted as a transfer from OSH with E. coli bacteremia and septic shock 11/15/19 and probable right lower lobe pneumonia with co urse complicated by A. fib with RVR, then bradycardia, shock liver and ROSALVA ROSALVA (creatinine 0.8 on 11/18/19, 1.6 on 11/19/19 and presenting creatinine 1.58 on 11/19/19 at [facility]): Likely non-oliguric, ATN from septic shock, A. fib with RVR and bradycardia induced hemodyn amic fluctuations and hypotension causing prerenal (FeNa 0.28% and FeUrea 33.13% on 11/19/19 w hile receiving IV fluids) state and renal hypoperfusion in the setting of impaired autoregul ation associated with age and outpatient ARB use GN unlikely without significant proteinuria or hematuria UA 11/19/19 specific gravity 1.006, pH 5, protein 30, blood moderate, WBC 3, RBC less than 1, bacteria present. Repeat UA had WBCs and RBCs and INR supratherapeutic at 5.2 on 11/19/19 Strict input output monitor. Monitor renal panel Explained to hold home medication losartan Avoid nephrotoxins including NSAIDs and IV contrast No need for renal replacement therapy at this time ELECTROLYTES: Metabolic acidosis. Secondary to severe lactic acidosis of 9 and shock liver on presentatio n. Continue bicarb drip at 65 cc/h but for treatment of lactic acidosis including fluid steve gement to primary team with patient's h/o ischemic cardiomyopathy Hyponatremia. From low osmole intake and shock liver. Asymptomatic Shock liver with AST 7030, ALT 3283 and total bilirubin 3.5 on 11/19/19 Please monitor renal panel VOLUME STATUS: Euvolemic S albumin acceptable Echo 09/26/14 LVEF 25-30%, RV normal size, LA mildly dilated, severe MR, trace AR and mild T R IV bicarb drip at 65 cc/h BP: Low normal for age, asymptomatic. Continue to monitor ANEMIA: Hb acceptable. Thrombocytopenia with supratherapeutic INR likely from shock liver. Continue to monitor MEDICATION DOSAGING: Please dose medications renally Thank you for the opportunity to be of assistance. Electronically signed: Please feel free to contact me with any questions, Electronically signed by: Christophe Cam MD, 11/19/2019, 2:08 PM Portions of this chart may have been created with GPNX voice recognition software. Occasi onal wrong-word or sound-alike substitutions may have occurred due to the inherent nicholson itations of voice recognition software. Please read the chart carefully and recognize, using context, where these substitutions have occurred URKljoselin, Mayur Cespedes MD - 0 11/19/2019 12:40 PM PDT [facility] PATIENT NAME: Yumiko Peguero : 1935: AGE: 83 y.o. ADMISSION DATE: 11/19/2019 PRIMARY CARE: Eva An MD DATE OF SERVICE: 11/19/2019 Mayur York MD Cardiology Consult CHIEF COMPLAINT: Congestive heart failure, atrial fibrillation CONSULT REQUESTED BY: Dr. Stark HISTORY OF PRESENT ILLNESS 83 y.o. year old female with a history of ischemic cardiomyopathy with ejection fraction of 25 to 30% and NYHA class II chronic systolic heart failure (known occluded LAD, PCI to left circumflex 2014), peripheral vascular disease, paroxysmal atrial fibrillation, severe joseph l regurgitation, and grq-npefxgf-ayjziwzyq type 2 diabetes who was admitted to [facility] in [place], [place] on 11/15/19 with a cough and malaise. Found to have probabl e pneumonia and UTI. The patient's hospital course was complicated initially by shock, whic h resolved by hospital day #1, and rapid atrial fibrillation with pauses after administratio n of amiodarone. There was some difficulty in assessing volume status, and the patient was administered Lasix as well as fluid throughout her admission. She is transferred to [facility] for worsening laboratory abnormalities, including acute kidney injury a nd significant transaminitis. The patient states that her cough has improved. She does not have any pain presently. She states she has no orthopnea or significant edema. PAST MEDICAL HISTORY Past Medical History: Diagnosis Date Asthma Atrial fibrillation (HCC) On coumadin CAD (coronary artery disease) HLD (hyperlipidemia) HTN (hypertension) Mitral regurgitation Severe per echo 09/26/14 w/EF 25-30% Type II diabetes mellitus (HCC) PAST SURGICAL HISTORY (INCLUDING PROCEDURES) Past Surgical History: Procedure Laterality Date CERVIX LESION DESTRUCTION CO2 laser CORONARY ANGIOPLASTY WITH STENT PLACEMENT 1996 stent to the LAD CORONARY ANGIOPLASTY WITH STENT PLACEMENT 09/30/14 Angioplasty for the mid left circumflex artery through the left radialartery using 1 drug- eluting stent Promus Premier 3 x 38 mm. HYSTERECTOMY FAMILY HISTORY Family History Problem Relation Age of Onset Other (see comment) Mother D 80-"Old age" Stroke Father D 80 Other (see comment) Unknown No siblings SOCIAL HISTORY Social History Socioeconomic History Marital status: Spouse name: Not on file Number of children: 4 Years of education: Not on file Highest education level: Not on file Occupational History Not on file Social Needs Financial resource strain: Not on file Food insecurity: Worry: Not on file Inability: Not on file Transportation needs: Medical: Not on file Non-medical: Not on file Tobacco Use Smoking status: Former Smoker Packs/day: 0.20 Years: 40.00 Pack years: 8.00 Types: Cigarettes Last attempt to quit: 04/17/2014 Years since quittin.5 Smokeless tobacco: Never Used Substance and Sexual Activity Alcohol use: Yes Alcohol/week: 0.0 standard drinks Comment: 1-2 times monthly Drug use: No Sexual activity: Not on file Lifestyle Physical activity: Days per week: Not on file Minutes per session: Not on file Stress: Not on file Relationships Social connections: Talks on phone: Not on file Gets together: Not on file Attends hindu service: Not on file Active member of club or organization: Not on file Attends meetings of clubs or organizations: Not on file Relationship status: Not on file Intimate partner violence: Fear of current or ex partner: Not on file Emotionally abused: Not on file Physically abused: Not on file Forced sexual activity: Not on file Other Topics Concern Not on file Social History Narrative SOCIAL HISTORY: 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 She does not currently smoke cigarettes. She quit about 1 year ago. Previously she used to smok e 10 cigarettes a week times 30 to 40 years. Alcohol about 1-2 times monthly. No recreationa l drugs. COMORBIDITY Active comorbid conditions include: - asthma TOBACCO HISTORY Social History Tobacco Use Smoking Status Former Smoker Packs/day: 0.20 Years: 40.00 Pack years: 8.00 Types: Cigarettes Last attempt to quit: 04/17/2014 Years since quittin.5 Smokeless Tobacco Never Used OUTPATIENT MEDICATIONS No current outpatient medications on file. (Cardiac Medications) No current outpatient medications on file. (Other) Medications Prior to Admission Medication Sig Dispense Refill acetaminophen (TYLENOL) 325 mg tablet Take 650 mg by mouth every 4 hours as needed for Pain. aspirin 81 MG EC tablet Take 1 tablet by mouth Daily. atorvaSTATin (LIPITOR) 40 mg tablet Take 40 mg by mouth nightly. Elgynryitbl-Vjxojqfde-Eow C-Mn (GLUCOSAMINE CHONDR 500 COMPLEX PO) Take 1 tablet by julia th Daily. glucose 4 G chewable tablet Take 4 g by mouth as needed for Low blood sugar. losartan (COZAAR) 100 MG tablet Take 100 mg by mouth Daily. metoprolol succinate (TOPROL-XL) 100 mg ER tablet Take 100 mg by mouth Daily. montelukast (SINGULAIR) 10 mg tablet Take 10 mg by mouth nightly. nitroglycerin (NITROSTAT) 0.[address] 0.4 mg under the tongue every 5 minute s as needed for Chest pain. pseudoePHEDrine (SUDAFED) 30 mg tablet Take 60 mg by mouth Twice daily as needed for C ongestion. SITagliptin-metFORMIN HCl ER (JANUMET XR) 50-1000 MG TB24 Take 1 tablet by mouth nightl y. warfarin (COUMADIN) 1 mg tablet Take 1 mg by mouth Every other day. 1 mg every other da y alternating with 2.5 mg warfarin (COUMADIN) 1 mg tablet Take 2.5 mg by mouth Every other day. 2.5 mg every othe r day alternating with 1 mg CURRENT HOSPITAL MEDS Scheduled aspirin 81 mg Oral Daily cefTRIAXone 1 g Intravenous Daily heparin 5,000 Units Subcutaneous 2 times per day insulin lispro 0-6 Units Subcutaneous 4x Daily WC and HS metoprolol succinate 25 mg Oral Daily PRN Hypoglycemia Management AND POCT Glucose AND dextrose AND dextrose 10% LATEST VS: BP 156/77 | Pulse 70 | Temp 36.6 C (97.8 F) (Temporal) | Resp 20 | Ht 1 .422 m (4' 8") | Wt 67.9 kg (149 lb 12.8 oz) | SpO2 97% | BMI 33.58 kg/m Vital sign ranges for last 24hrs: Input and output for last 24hrs: Temp: [36 C (96.8 F)-36.6 C (97.8 F)] 36.6 C (97.8 F) Pulse: [55-70] 70 Resp: [20-24] 20 BP: (118-156)/(62-77) 156/77 SpO2 Av % Min: 97 % Max: 99 % / 0701 - /04 1900 In: 617 [P.O.:540; I.V.:27] Out: 250 [Urine:250] Body mass index is 33.58 kg/m.; Body surface area is 1.64 meters squared. ALLERGIES Allergies Allergen Reactions Amoxicillin Itching Azithromycin Diarrhea and Itching Clavulanic Acid Itching Unknown Penicillins Itching Clindamycin Itching and Rash ROS 12 point ROS was completed and is negative except as noted in HPI. The patient does not camacho ve chest pain or shortness of breath currently. PHYSICAL EXAM BP 156/77 | Pulse 70 | Temp 36.6 C (97.8 F) (Temporal) | Resp 20 | Ht 1.422 m (4' 8 ") | Wt 67.9 kg (149 lb 12.8 oz) | SpO2 97% | BMI 33.58 kg/m Body mass index is 33.58 kg/m.; Body surface area is 1.64 meters squared. GENERAL: No acute distress HEENT: Moist mucous membranes CHEST: Clear to auscultation bilaterally CARDIAC: Regular rate and rhythm, 2/6 holosystolic murmur ABDOMEN: Nontender, nondistended, normoactive bowel sounds EXTREMITIES: No edema bilaterally NEUROLOGIC: Alert and oriented 3 SKIN: Warm and dry EKG Sinus rhythm at 55 bpm with a left bundle branch block, QRS duration 136 ms. LABS Recent Results (from the past 24 hour(s)) Troponin I Collection Time: 11/19/19 10:53 AM Result Value Ref Range Troponin I 0.538 (AA) 0.000 - 0.069 ng/mL CBC no Differential Collection Time: 11/19/19 10:53 AM Result Value Ref Range WBC 10.13 3.80 - 11.00 K/uL RBC 4.04 3.70 - 5.10 M/uL Hemoglobin 11.8 11.3 - 15.5 g/dL Hct 35.7 34.0 - 46.0 % MCV 88.4 80.0 - 100.0 fL MCH 29.2 27.0 - 34.0 pg MCHC 33.1 32.0 - 35.5 g/dL RDW-CV 14.6 11.0 - 15.5 % Platelet Count 135 (L) 150 - 400 K/uL MPV 11.4 9.3 - 12.7 fL Comprehensive Metabolic Panel Collection Time: 11/19/19 10:53 AM Result Value Ref Range Na 134 (L) 135 - 145 mmol/L K 5.0 3.5 - 5.0 mmol/L Cl 98 (L) 99 - 109 mmol/L CO2 13 (L) 21 - 28 mmol/L Calcium 9.4 8.5 - 10.2 mg/dL Anion Gap 23 (H) 5 - 16 mmol/L Albumin 3.9 3.3 - 4.8 g/dL BUN 31 (H) 8 - 25 mg/dL Creatinine 1.58 (H) 0.50 - 1.00 mg/dL Glucose 192 (H) 65 - 99 mg/dL Total Protein 5.8 (L) 6.1 - 7.8 g/dL Alkaline Phosphatase 247 (H) 35 - 115 U/L ALT 3,283 (H) 10 - 65 U/L AST 7,030 (H) 10 - 45 U/L Bilirubin Total 3.5 (H) 0.2 - 1.1 mg/dL Estimated GFR 30 (L) >=90 mL/min/1.73m2 Lactic Acid Collection Time: 11/19/19 10:53 AM Result Value Ref Range Lactate, Venous 9.0 (AA) 0.5 - 2.2 mmol/L Magnesium Collection Time: 11/19/19 10:53 AM Result Value Ref Range Magnesium 2.1 1.7 - 2.4 mg/dL Protime INR Collection Time: 11/19/19 10:53 AM Result Value Ref Range Prothrombin Time 46.2 (H) 12.0 - 14.2 sec INR 5.0 (H) 0.9 - 1.1 DIC Panel Collection Time: 11/19/19 10:53 AM Result Value Ref Range D-DIMER, QUANTITATIVE 3.26 (H) 0.00 - 0.49 ug/mL FEU Fibrinogen 512 (H) 211 - 419 mg/dL INR 5.2 (H) 0.9 - 1.1 Platelet Count 129 (L) 150 - 400 K/uL Protime 47.2 (H) 12.0 - 14.2 sec RBC Morphology Normal Normal Thrombin Time, Patient 16.0 15.6 - 20.0 sec aPTT, Patient 38 (H) 26 - 36 sec Urinalysis With Microscopic Collection Time: 11/19/19 11:10 AM Result Value Ref Range Color, Urine Yellow Clarity Cloudy (A) Glucose, Urine Negative Negative mg/dL Bilirubin, Urine Negative Negative Urobilinogen, Urine <2.0 <2.0 mg/dL Ketones, Urine Trace (A) Negative mg/dL Specific [place], Urine 1.006 1.001 - 1.030 pH, Urine 5.0 5.0 - 7.5 Protein, Urine 30 (A) Negative mg/dL Nitrite, Urine Negative Negative Blood, Urine Moderate (A) Negative Leukocyte Esterase, Urine Negative Negative Squamous Epithelial Cells, Urine Few /hpf White Blood Cells, Urine 3 0 - 5 /hpf Red Blood Cells, Urine <1 0 - 5 Bacteria, Urine Present (A) Amorphous Crystals, Urine None Present Mucus, Urine Present (A) POC Glucose Collection Time: 11/19/19 11:59 AM Result Value Ref Range Glucose, POC 165 (H) 65 - 99 mg/dL Urinalysis With Microscopic Collection Time: 11/19/19 1:05 PM Result Value Ref Range Color, Urine Estefany Clarity Cloudy (A) Glucose, Urine Negative Negative mg/dL Bilirubin, Urine Negative Negative Urobilinogen, Urine <2.0 <2.0 mg/dL Ketones, Urine Negative Negative mg/dL Specific [place], Urine 1.010 1.001 - 1.030 pH, Urine 5.0 5.0 - 7.5 Protein, Urine 100 (A) Negative mg/dL Nitrite, Urine Negative Negative Blood, Urine Moderate (A) Negative Leukocyte Esterase, Urine Moderate (A) Negative Squamous Epithelial Cells, Urine Moderate /hpf White Blood Cells, Urine 56 (H) 0 - 5 /hpf Red Blood Cells, Urine 15 (H) 0 - 5 Bacteria, Urine None Seen Amorphous Crystals, Urine None Present Mucus, Urine Present (A) White Blood Cell Clumps, Urine Occasional >=0 /hpf Sodium, Urine, Random Collection Time: 11/19/19 1:05 PM Result Value Ref Range U SODIUM 11 0 - 259 mmol/L Creatinine, Urine, Random Collection Time: 11/19/19 1:05 PM Result Value Ref Range Creatinine, Urine 46 19 - 311 mg/dL Urea Nitrogen, Urine, Random Collection Time: 11/19/19 1:05 PM Result Value Ref Range Urea Nitrogen, Urine 299 106 - 1,555 mg/dL Lactic Acid Collection Time: 11/19/19 3:05 PM Result Value Ref Range Lactate, Venous 4.3 (AA) 0.5 - 2.2 mmol/L POC Glucose Collection Time: 11/19/19 5:21 PM Result Value Ref Range Glucose, POC 131 (H) 65 - 99 mg/dL Lactic Acid Collection Time: 11/19/19 7:49 PM Result Value Ref Range Lactate, Venous 3.3 (H) 0.5 - 2.2 mmol/L IMAGING No results found. CURRENT ASSESSMENT AND PLAN 83 y.o. year old female with ischemic cardiomyopathy and paroxysmal atrial fibrillation pre senting with pneumonia, UTI. Course complicated by acute renal failure, transaminitis, rapi d atrial fibrillation with pauses after amiodarone. * Acute kidney injury (ROSALVA) with acute tubular necrosis (ATN) ([facility]) Assessment & Plan ROSALVA likely due to transient hypotension with ATN. Not currently volume overloaded. Would avoid dehydration. No need for diuretics for now. OK for cautious hydration. Atrial fibrillation with RVR (HCC) Assessment & Plan Recommend holding amiodarone for now given significant transaminitis. Would start Toprol-X L 25 mg daily, and may consider increasing that dose if patient has rapid atrial fibrillatio n. When labs stabilized, would recommend reinitiation of therapeutic anticoagulation (would prefer DOAC but this may be a financial issue, so resumption of Coumadin would be acceptabl e) and discontinuation of aspirin. If patient has recurrence of atrial fibrillation after n ormalization of LFTs, consider amiodarone. Ischemic cardiomyopathy Assessment & Plan Reasonably compensated, though severely depressed EF and severe mitral regurgitation. Balwinder mmend initiate Toprol-XL 25 mg daily for ischemic cardiomyopathy and atrial fibrillation. W hen labs normalize and hemodynamics appear stable, consider initiation of low-dose SHEILA inhib itor. The patient does have a left bundle branch block with severe mitral regurgitation, an d may benefit from MATTRESS SPECIALIST. I would recommend that the patient follow-up with cardiology as an outpatient to determine if she may benefit long-term from possible MATTRESS SPECIALIST P or MATTRESS SPECIALIST D. Bradycardia Assessment & Plan Pauses after amiodarone, but no real documented symptoms. Would continue to monitor for no w on Toprol-XL as detailed elsewhere in plan. If the patient has recurrent rapid atrial fib rillation alternating with significant bradycardia, she may require pacemaker implantation t his admission. If pacemaker is required, would consider MATTRESS SPECIALIST P or MATTRESS SPECIALIST D. Thank you for allowing me to participate in the care of this patient. Please contact me wi th further questions. Signed by: Mayur York MD 11/19/2019, 8:44 PM @CCLIST@ documented in this encounter Miscellaneous Notes Plan of Care - Estefany Park LCSW - 11/24/2019 1:35 PM PDTSOCIAL WORK PLAN: Home with NEXT STEPS: none INTERVENTION: TALHA notified by OP Pharm that pt does not have prescription coverage but has 5 new DC meds. TALHA verified that pt does not have Part D or Medicaid. Approved emergency fun d for $230 prescriptions. Pt will be able to get her meds paid for at home by [facility] and is f/ u at [facility] in [place] tomorrow. Previous SW intervention: SW acknowledges consult for possible placmeent. Per chart review, once pt is more stabl e PT and OT will see and make recommendations. SW to follow and assist. Pt lives in [facility], [place]. SW involvement pending rehab recommendation. SW to follow. SW spoke with pt re: current HH services. She doesn't think she has HH at home. She li ves with her youngest adult daughter, Lisa but cannot find her phone #. Her son, Jack , info is in her chart but his number has been busy. SW will continue to try to contact he r family to see if they know who she has used for HH in the past, if anyone. SW will arrang e new HH if not able to get in touch with family. SW spoke with daughter Mimi, who does not think her mom has had Home Health before. Davon toro had "visitors" from a local [place] clinic, but she does not think they were nurses. SW found out that [facility] from [facility] services this area. SW made referral in [facility] and called the [facility] office. They will f/u with pt. SW called rama Le to notifyREYNALDO. CONTACTS: [phone] Daughter Magdiel: [phone] Daughter Mimi [phone] lan of Care - Ileana Walker RN - 11/24/2019 4:08 AM PDTFormatting of this note might be different fr om the original. Nursing Handoff Note Room # 904/904-02 None Item for service writer Comments Shift Summary Admitted 11/19/2019. A/O X4, can be forgetful. Up independently. PIV saline l ocked. Normal sinus rhythm on monitor. No complaints of pain. Takes pills whole with thins. Slept well throughout the night. Calm and cooperative with cares. Dx/Tx: Code Status: DNR (No Code) Tele/Cardiac: PICC/Lines: Type: Active PICC Lines None Active Gtt: dextrose 10% Abn Labs/Tx: Neuro/Mentation: Mobility/HRF Interventions: Pandya Fall Risk Level: Medium Activity Comments: Bed Alarm on? [] Yes / No Therapy Involved? (PT/OT/ST/RT) Respiratory/Oxygen: DC Plan: (Able to manage at home?) VTE Prophylaxis: (SCD or Rx?) Diet: Current active diet order is: Diet Diet renal; Effective Now /Shea: Active Urinary Caths None D/C Date: GI/Last bowel movement: Last Bowel Movement: 11/21/19 Skin: Pain Management : Acceptable Level of Pain C-SSRS Monitoring Requirements PHS Suicide Policy [facility] Suicide Risk/Telesitter Screening Utilizing this rating scale, the suicidal patient will be monitored in the following manner : [] Score <=2 "yes" responses, Patient does not require observation [] Score =3 "yes" responses, Patient can be observed using a Telesitter [] Score >=4 "yes" responses, Patient requires in person continual visual observation Appropriate interventions were placed based on the above criteria and room preparation will be completed for safety based on suicide observation protocols. Vitals: 11/23/19 2022 11/24/19 0010 11/24/19 0200 11/24/19 0337 BP: 153/84 165/84 158/80 Pulse: 68 77 73 Resp: 18 18 18 Temp: 37 C (98.6 F) 36.4 C (97.6 F) 36.9 C (98.4 F) TempSrc: Temporal Temporal Temporal SpO2: 96% 96% 96% Weight: 68.4 kg (150 lb 12 oz) Height: Component Value Date/Time POCGLU 115 (H) 11/23/20192030 POCGLU 129 (H) 11/23/2019 1709 POCGLU 107 (H) 11/23/2019 1130 POCGLU 103 (H) 11/23/2019 0616 lan of Sanchez - Jennifer Rey RN - 11/23/2019 6:04 PM PDT Nursing Handoff Note Room # 904/904-02 None Item for service writer Comments Shift Summary Pt A&O, up independent in room. On RA. Mg and k replaced today. Plan is to D/ c in AM home w/ HH. IV abx Dx/Tx: Severe Sepsis / PNA / e coli bacteremia ROSALVA Ischemic cardiomyopathy afib RVR Shock liver Prolonged QTc DM2 Code Status: DNR (No Code) Tele/Cardiac: SR PICC/Lines: Type: PIV Active Gtt: dextrose 10% Abn Labs/Tx: Neuro/Mentation: A&O Mobility/HRF Interventions: Pandya Fall Risk Level: High Activity Comments: Independent Bed Alarm on? [] Yes / [] No Therapy Involved? (PT/OT/ST/RT) PT/OT/SW Respiratory/Oxygen: RA DC Plan: (Able to manage at home?) Home w/ HH VTE Prophylaxis: (SCD or Rx?) lovenox SQ Diet: Current active diet order is: Diet Diet renal; Effective Now /Seha: Voiding per BR D/C Date: GI/Last bowel movement: Last Bowel Movement: 11/21/19 Skin: intact Pain Management : Denies Acceptable Level of Pain C-SSRS Monitoring Requirements PHS Suicide Policy [facility] Suicide Risk/Telesitter Screening Utilizing this rating scale, the suicidal patient will be monitored in the following manner : [] Score <=2 "yes" responses, Patient does not require observation [] Score =3 "yes" responses, Patient can be observed using a Telesitter [] Score >=4 "yes" responses, Patient requires in person continual visual observation Appropriate interventions were placed based on the above criteria and room preparation will be completed for safety based on suicide observation protocols. Vitals: 11/23/19 0405 11/23/19 0714 11/23/19 1104 11/23/19 1531 BP: 158/79 142/72 134/71 148/85 Pulse: 67 69 63 72 Resp: 16 16 17 18 Temp: 36.8 C (98.3 F) 36.7 C (98.1 F) 36.7 C (98.1 F) 36.2 C (97.1 F) TempSrc: Temporal Oral Temporal Temporal SpO2: 96% 95% 96% 97% Weight: Height: Component Value Date/Time POCGLU 129 (H) 11/23/2019 1709 POCGLU 107 (H) 11/23/2019 1130 POCGLU 103 (H) 11/23/2019 0616 POCGLU 129 (H) 11/22/20192002 lan of Care - Abigail Hernandez RN - 11/23/2019 2:45 PM PDTCTC Note: Phone call made to patient's daughter, Mimi, to discuss the Hospitalists' role in patient's care. Confirmed PCP as REBECCA Herbert and faxed the H&P to her. Follow up appointment scheduled with PCP on 11/30/19 at 9am. Mimi states transportation to this appt is not an issue. ACC is managed by her PCP's clinic. Informed Mimi that one of my colleagues or I will call patient 1-2 days after discharge to check on her status. She ve rifies understanding and states patient's best phone number is [phone].Electronically s igned by Eliane Hernandez RN at 11/24/2019 10:40 AM PDTAssessment & Plan Note - Aramis Cotter MD - 11/23/2019 11:36 AM PDTAssociated Problem(s): Mitral regurgitationSevere joseph l regurgitation from echo 2015, slightly worsened on repeat echo. Continue medical optimizat ion of LV dysfunction. lan of Estefany Franklin LCSW - 11/23/2019 11:13 AM PDTHome with HHElectronical ly signed by Estefany Park LCSW at 11/23/2019 11:13 AM PDTPlan of Estefany Franklin LC SW - 11/23/2019 11:08 AM PDTSOCIAL WORK PLAN: Home with HH NEXT STEPS: none INTERVENTION: TALHA spoke with daughter Mimi, who does not think her mom has had Home Health before. They had "visitors" from a local [place] clinic, but she does not think they were honorio lieberman. TALHA found out that [facility] from [facility] services this area . TALHA made referral in [facility] and called the [facility] office. They will f/u with pt. S W called daughter Mimi to notify, LM. Previous SW intervention: SW acknowledges consult for possible placmeent. Per chart review, once pt is more stabl e PT and OT will see and make recommendations. SW to follow and assist. Pt lives in [facility], [place]. SW involvement pending rehab recommendation. SW to follow. SW spoke with pt re: current HH services. She doesn't think she has HH at home. She li ves with her youngest adult daughter, Lisa but cannot find her phone #. Her son, Jack , info is in her chart but his number has been busy. SW will continue to try to contact he r family to see if they know who she has used for HH in the past, if anyone. SW will arrang e new HH if not able to get in touch with family. CONTACTS: Cbtae-[phone] Daughter Magdiel: [phone] Daughter Mimi [phone] lan of Care - Amy Mary PT - 11/23/2019 9:30 AM [facility] Physical Therapy Plan of Care Initial Evaluation, Discharge Note Summary: PT re-consult received - chart reviewed. Pt was evaluated and discharged from PT on 11/20, and was evaluated and discharged from OT 11/21. Presents near baseline - educated on p acing strategies and 4WW. Recommending DC home with assistance and HHPT at DC. No further ac tremaine PT needs. Electronically signed by: Amy Coffey PT 11/23/2019 9:34 AM ssessment & Plan No brittany - Nadia Cotter MD - 11/23/2019 8:17 AM PDTAssociated Problem(s): Coronary gigi ry disease involving little shell tribe coronary artery of little shell tribe heart without angina pectorisKnown CAD with ischemic cardiomyopathy. Cath from 2014 shows 100% occlusion of LAD, negative iFR of R CA and PCI with Promus SUSAN to left circumflex artery. - monotherapy with coumadin, would avoid aspirin. Cont BB, ACEi ssessment & Plan Note - Nadia Cotter MD - 11/23/2019 8:17 AM PDTAssociated Problem(s): Shock liverResolving. INR 1.2 today E lectronically signed by Nadia Cottre MD at 11/23/2019 8:17 AM PDTAssessment & Plan Nadia Arevalo MD - 11/23/2019 8:16 AM PDTAssociated Problem(s): Bradycardi aAsymptomatic, no further pauses after sinus conversion with amiodarone. If the patient has recurrent rapid atrial fibrillation alternating with significant bradycardia, she may requir e pacemaker implantation. If pacemaker is required, would consider MATTRESS SPECIALIST P or MATTRESS SPECIALIST D.Electr onically signed by Nadia Cotter MD at 11/23/2019 8:17 AM PDTAssessment & Plan Nadia Arevalo MD - 11/23/2019 8:15 AM PDTAssociated Problem(s): Ischemic cardio myopathySeverely depressed EF of 20% and moderate to severe mitral regurgitation. Continue Toprol, and losartan. - outpatient consult with Dr. York post discharge to continue to assess for MATTRESS SPECIALIST-P or DElec tronically signed by Nadia Cotter MD at 11/23/2019 11:36 AM PDTAssessment & Plan No te Nadia Miles MD - 11/23/2019 8:13 AM PDTAssociated Problem(s): Atrial fibril lation with RVR (HCC)In setting of sepsis. Now resolved, rate controlled. Avoid amiodarone g iven significant transaminates and 9 second conversion pauses, continue low-dose beta-blocke r. Would keep K > 4.0, Mag > 2.0. - Increase Toprol-XL to 50 mg daily - replete mag and potassium, 2g IV, and 40meq x1 - continue monotherapy with coumadin and enoxaparin bridge - Outpatient MCT post discharge to look for more pauses/A. Fib and evaluate further sinus n ode dysfunction - Will discuss with Dr. York to follow up outpatient for to MATTRESS SPECIALIST pacer lan of Care - April Oreilly RN - 11/22/2019 5:27 PM PDT Nursing Handoff Note Room # 904/904-02 None Item for service writer Comments Shift Summary A/O up with SBA and FWW to BR. Walked in hallways this evening, no c/o of SOB . Stable on RA. IV abx. Dx/Tx: Severe Sepsis / PNA / e coli bacteremia ROSALVA Ischemic cardiomyopathy afib RVR Shock liver Prolonged QTc DM2 Code Status: DNR (No Code) Tele/Cardiac: SR/SB PICC/Lines: PIV Active Gtt: dextrose 10% Abn Labs/Tx: Neuro/Mentation: A/o Mobility/HRF Interventions: Pandya Fall Risk Level: High Activity Comments: indep/CGA with FWW Bed Alarm on? []? Yes / [x]? No Therapy Involved? (PT/OT/ST/RT) Respiratory/Oxygen: RA DC Plan: (Able to manage at home?) Home with HH VTE Prophylaxis: (SCD or Rx?) Lovenox Diet: Current active diet order is: Diet Diet renal; Effective Now /Shea: BR GI/Last bowel movement: Last Bowel Movement: 11/21/19 Skin: intact Pain Management : Denies Acceptable Level of Pain C-SSRS Monitoring Requirements PHS Suicide Policy [facility] Suicide Risk/Telesitter Screening Utilizing this rating scale, the suicidal patient will be monitored in the following manner : []? Score <=2 "yes" responses, Patient does not require observation []? Score =3 "yes" responses, Patient can be observed using a Telesitter []? Score >=4 "yes" responses, Patient requires in person continual visual observation Appropriate interventions were placed based on the above criteria and room preparation will be completed for safety based on suicide observation protocols. Vitals: 11/22/19 0841 11/22/19 1049 11/22/19 1139 11/22/19 1608 BP: 149/69 142/72 140/75 Pulse: 72 66 57 69 Resp: 16 16 Temp: 36.6 C (97.9 F) 36.1 C (96.9 F) TempSrc: Temporal Temporal SpO2: 94% Weight: Height: Component Value Date/Time POCGLU 106 (H) 11/22/2019 1610 POCGLU 121 (H) 11/22/2019 1134 POCGLU 87 11/22/2019 0655 POCGLU 130 (H) 11/21/20192052 lan of Care - Neeru Kearney RN - 11/22/2019 3:16 PM PDTFormatting of this note might be different from t valery original. Nursing Handoff Note Room # 904/904-02 None Item for service writer Comments Shift Summary Patient A/O, CGA in room to BR with FWW. Voiding well, BG well controlled. Ne eding a couple more days of iv abx prior to d/c. No pain, calls approp. Restarted warfarin t rachel. Dx/Tx: Severe Sepsis / PNA / e coli bacteremia ROSALVA Ischemic cardiomyopathy afib RVR Shock liver Prolonged QTc DM2 Code Status: DNR (No Code) Tele/Cardiac: SR/SB PICC/Lines: PIV Active Gtt: dextrose 10% Abn Labs/Tx: Neuro/Mentation: A/o Mobility/HRF Interventions: Pandya Fall Risk Level: High Activity Comments: indep/CGA with FWW Bed Alarm on? [] Yes / [x] No Therapy Involved? (PT/OT/ST/RT) Respiratory/Oxygen: RA DC Plan: (Able to manage at home?) Home with HH VTE Prophylaxis: (SCD or Rx?) Lovenox Diet: Current active diet order is: Diet Diet renal; Effective Now /Shea: BR GI/Last bowel movement: Last Bowel Movement: 11/21/19 Skin: intact Pain Management : Denies Acceptable Level of Pain C-SSRS Monitoring Requirements PHS Suicide Policy [facility] Suicide Risk/Telesitter Screening Utilizing this rating scale, the suicidal patient will be monitored in the following manner : [] Score <=2 "yes" responses, Patient does not require observation [] Score =3 "yes" responses, Patient can be observed using a Telesitter [] Score >=4 "yes" responses, Patient requires in person continual visual observation Appropriate interventions were placed based on the above criteria and room preparation will be completed for safety based on suicide observation protocols. Vitals: 11/22/19 0725 11/22/19 0841 11/22/19 1049 11/22/19 1139 BP: 158/79 149/69 142/72 Pulse: 61 72 66 57 Resp: 16 16 Temp: 36 C (96.8 F) 36.6 C (97.9 F) TempSrc: Temporal Temporal SpO2: 98% Weight: Height: Component Value Date/Time POCGLU 121 (H) 11/22/2019 1134 POCGLU 87 11/22/2019 0655 POCGLU 130 (H) 11/21/2019 2053 POCGLU 117 (H) 11/21/2019 1604 lan of Care - Qing Cochran OT - 11/22/2019 12:30 PM PDT Occupational Therapy Plan of Care Initial Evaluation, Discharge Note Summary: OT evaluation completed s/p pt's admission from outside hospital with septic shoc k from PNA and AFIB with RVR. Prior to admission, pt reports she was independent with ADLs a nd most IADLs, recently has had difficulty with cleaning. Today, pt presents alert, oriented x4, following multi-step commands. Pt's BUE ROM WFL, strength 4/5, coordination intact, and sensation intact. Pt completed LB dressing seated in chair, figure four position to don soc ks. Pt completed grooming standing at sink, counter for balance. Pt independent for sit to s tand. Pt ambulated to bathroom with supervision, declined use of 4WW but using counter for b alance. Pt required supervision for standard toilet transfer, 1x with grab bar, 1x without g rab bar (has raised toilet seat at home). Pt reporting "memory isn't what it used to be". Di scussed implications for daily life, recommend pt use phone alerts for medication reminders, pt agreeable. No further acute care OT needs, will d/c. Recommend pt d/c home with assist w hen medically stable. Occupational Therapy Discharge Recommendations are: Recommended discharge disposition: home with assist Post discharge occupational therapy recommendation: no further OT Equipment Recommendations: none Occupational Therapy will follow Yumiko Peguero one time visit(evaluation only) until discha rge from therapy or discharged from the hospital. Planned Interventions include . General Observations: Pt up in chair, agreeable to OT. Precautions: falls, cardiac Pertinent History of Current Problem: Pt is a 83 yo female who was admitted from a hospital in [facility], [place] with septic shock from PNA. Course complicated by afib with RVR which spo ntaneously converted to SR with treatment of sepsis and resuming home metoprolol. PMH includ es afib, CAD, HLD, HTN, mitral regurg and DM2. Social History: Lives With: child(doroteo), adult in mobile home Home Accessibility: ramps present at home; Equipment used at home: ; Additional Informatio n: Pt lives in mobile home with dtr who does not assist much. Pt's son's friend, [place] huff t and will move onto her property. Uses cane but may need walker. Has ramp. Pt drives. Pt camacho s some assistance through [employer] and [employer]. Walk-in shower with shower chair, standard toile t with raised toilet seat. Prior level of function: Pt independent with ADLs and most IADLs, reports difficulty with c leaning. Independent with mobility, uses SPC at times, 1 fall in last 3 months (tripped on c urb). Cognition: Speech: clear, spontaneous, logical Orientation: oriented x 4 Arousal level: opens eyes spontaneously Behavior: calm, cooperative Vision Vision Comments: denies changes, wears glasses ROM LUE ROM: WFL RUE ROM: WFL Strength LUE: 4/5 RUE: 4/5 Sensation LUE light touch: WNL RUE light touch: WNL Coordination BUE: intact Patient Status/Goals: Reflects last filed data of patient status; may be from multiple contributors. Bed Mobility Supine to Sit Level of [place]: not tested Assistive Device: Transfers Sit to Stand Level of independence: modified independent Assistive Device: none Stand to Sit Level of independence: modified independent Assistive Device: none Toilet Level of [place]: supervised Assistive Device: none Balance Static Sitting: normal balance Dynamic Sitting: normal balance Static Standing: fair balance Dynamic Standing: fair balance ADL Upper body dressing Level of [place]: independent Assistive Device: none Position: sitting Lower body dressing Level of [place]: independent Assistive Device: none Position: sitting, standing Toilet training Level of [place]: independent Assistive Device: none Position: sitting Grooming Level of [place]: independent Assistive Device: none Position: standing, supported standing Activity Tolerance: moderate Electronically signed by: Qing Cochran OT 11/22/2019 1:04 PM I have reviewed the above occupational therapy plan of care and agree with the plan. lan of Care - Leoncio Moreira RN - 11/22/2019 12:21 AM PDT Nursing Handoff Note Room # 904/904-02 None Item for service writer Comments Shift Summary A/O. Denies pain or discomfort. VSS, RA. Daily ceftriaxone. Voiding and havi ng BMs. Modified independence, has been getting up independently without difficulty, calls f or assistance. FWW. DM2. SR/SB, BBB. Dx/Tx: Code Status: DNR (No Code) Tele/Cardiac: SR/SB, BBB PICC/Lines: PIV Active Gtt: dextrose 10% Abn Labs/Tx: Neuro/Mentation: A/O Mobility/HRF Interventions: Pandya Fall Risk Level: High Activity Comments: independent/SBA Bed Alarm on? [] Yes / [x] No Therapy Involved? (PT/OT/ST/RT) Respiratory/Oxygen: RA DC Plan: (Able to manage at home?) SNF VTE Prophylaxis: (SCD or Rx?) Lovenox Diet: Current active diet order is: Diet Diet renal; Effective Now /Shea: BR GI/Last bowel movement: Last Bowel Movement: 11/21/19 Skin: intact Pain Management : Denies Acceptable Level of Pain Vitals: 11/21/19 1407 11/21/19 1514 11/21/19 2049 11/22/19 0009 BP: 140/70 148/80 149/78 134/62 Pulse: 62 63 67 Resp: 16 16 16 Temp: 36.8 C (98.3 F) 35.8 C (96.4 F) 36.5 C (97.7 F) TempSrc: Temporal Temporal Temporal SpO2: 95% 93% 97% Weight: Height: Component Value Date/Time POCGLU 130 (H) 11/21/20193 POCGLU 117 (H) 11/21/2019 1604 POCGLU 103 (H) 11/21/2019 1226 POCGLU 86 11/21/2019 0642 lan of Care - Anum Haddad RN - 11/21/2019 3:35 PM PDT Nursing Handoff Note Room # 904/904-02 None Item for service writer Comments Shift Summary Assumed care from 1500. Pt A/O, sleeping between care, denies pain, VSS, pt r eports she has urinated previous shift twice after BU removal. lovenox sq restarted. Dx/Tx: Severe Sepsis / PNA / e coli bacteremia ROSALVA Ischemic cardiomyopathy afib RVR Shock liver Prolonged QTc DM2 Code Status: DNR (No Code) Tele/Cardiac: SR/SB PICC/Lines: Type: PIV Active Gtt: dextrose 10% Abn Labs/Tx: Neuro/Mentation: A/O Mobility/HRF Interventions: Pandya Fall Risk Level: High Activity Comments: min assist w/ FWW Bed Alarm on? [] Yes / [x] No Therapy Involved? (PT/OT/ST/RT) PT/OT Respiratory/Oxygen: RA DC Plan: (Able to manage at home?) TBD VTE Prophylaxis: (SCD or Rx?) Sq lovenox Diet: Current active diet order is: Diet Diet renal; Effective Now /Shea: Up to BR, BU removed, voiding GI/Last bowel movement: Last Bowel Movement: 11/19/19 Skin: Groin rash, scattered bruising Pain Management : Denies at this time Acceptable Level of Pain C-SSRS Monitoring Requirements PHS Suicide Policy [facility] Suicide Risk/Telesitter Screening Utilizing this rating scale, the suicidal patient will be monitored in the following manner : [] Score <=2 "yes" responses, Patient does not require observation [] Score =3 "yes" responses, Patient can be observed using a Telesitter [] Score >=4 "yes" responses, Patient requires in person continual visual observation Appropriate interventions were placed based on the above criteria and room preparation will be completed for safety based on suicide observation protocols. Vitals: 11/21/19 0825 11/21/19 1035 11/21/19 1407 11/21/19 1514 BP: 144/82 140/70 148/80 Pulse: 63 61 62 63 Resp: 16 16 Temp: 36.7 C (98.1 F) 36.8 C (98.3 F) TempSrc: Temporal Temporal SpO2: 90% 95% Weight: Height: Component Value Date/Time POCGLU 103 (H) 11/21/2019 1226 POCGLU 86 11/21/2019 0642 POCGLU 136 (H) 11/20/2019 2101 POCGLU 96 11/20/2019 1728 lan of Care - Neeur Kearney RN - 11/21/2019 2:53 PM PDTFormatting of this note might be different from t he original. Nursing Handoff Note Room # 904/904-02 None Item for service writer Comments Shift Summary Patient a/o, up CGA in room with FWW. BU removed at 1040, voided shortly afte r 150. Continuous fluids d/mitzi, encouraging PO intake. SR/SB on tele. K replaced today, rest arted cozaar today. ECHO done today, 20% EF. Dx/Tx: Severe Sepsis / PNA / e coli bacteremia ROSALVA Ischemic cardiomyopathy afib RVR Shock liver Prolonged QTc DM2 Code Status: DNR (No Code) Tele/Cardiac: SR/SB PICC/Lines: PIV Active Gtt: dextrose 10% Abn Labs/Tx: Neuro/Mentation: A/o Mobility/HRF Interventions: Pandya Fall Risk Level: High Activity Comments: SBA Bed Alarm on? [] Yes / [x] No Therapy Involved? (PT/OT/ST/RT) PT/OT Respiratory/Oxygen: RA DC Plan: (Able to manage at home?) TBD VTE Prophylaxis: (SCD or Rx?) INR high Diet: Current active diet order is: Diet Diet renal; Effective Now /Shea: Voiding. BU removed GI/Last bowel movement: Last Bowel Movement: 11/19/19 Skin: Groin rash- myc powder Pain Management : Denies Acceptable Level of Pain C-SSRS Monitoring Requirements PHS Suicide Policy [facility] Suicide Risk/Telesitter Screening Utilizing this rating scale, the suicidal patient will be monitored in the following manner : [] Score <=2 "yes" responses, Patient does not require observation [] Score =3 "yes" responses, Patient can be observed using a Telesitter [] Score >=4 "yes" responses, Patient requires in person continual visual observation Appropriate interventions were placed based on the above criteria and room preparation will be completed for safety based on suicide observation protocols. Vitals: 11/21/19 0724 11/21/19 0825 11/21/19 1035 11/21/19 1407 BP: 131/65 144/82 140/70 Pulse: 57 63 61 62 Resp: 16 16 Temp: 36.2 C (97.2 F) 36.7 C (98.1 F) TempSrc: Temporal Temporal SpO2: 92% 90% Weight: Height: Component Value Date/Time POCGLU 103 (H) 11/21/2019 1226 POCGLU 86 11/21/2019 0642 POCGLU 136 (H) 11/20/2019 2101 POCGLU 96 11/20/2019 1728 ssessment & Plan Note - Canelo Salazar MD - 11/21/2019 12:41 PM PDTAssociated Problem(s): Mitral regurgit ationSevere mitral regurgitation from echo 2015, repeat echo yesterday looks moderate to sev ere. May change based on amount of annular dilatation from her LV dysfunction, so good milena tment of her LV dysfunction will be [place]. ssessment & Plan Note - Pily Gomez ARNP - 11/21/2019 12:32 PM PDTAssociated Problem(s): Coronary artery disease involving little shell tribe coronary artery of little shell tribe heart without angina pectorisKnown CAD with ischemic cardiomyopathy. Cath from 201 5 shows 100% occlusion of LAD, negative iFR of RCA and PCI with Promus SUSAN to left circumfle x artery. Troponin mildly elevated 0.5 on 11/19/19. Plan: No aspirin while not on anticoagulation and will wait to restart given elevated liver trans aminases. No statin for same reasons. Continue BB TPlan of Care - Amy Coffey PT - 11/21/2019 9:57 AM PDT Physical Therapy Plan of Care Initial Evaluation, Discharge Note Summary: Pt is a 83 yo female who [facility] [facility] [place] with sept[place] c shock from PNA. Course complicated by afib with RVR which spontaneously converted to SR w ith treatment of sepsis and resuming home metoprolol. PMH includes afib, CAD, HLD, HTN, mitr al regurg and DM2. Pt greeted seated up in bedside chair, pleasant and agreeable to therapy. [place] in a modular home with ramped entry . She has a family friend staying with her that would be able to assist with anything she ne eds. She demonstrates intact LT sensation with generalized weakness 4/5 to B LEs. Pt reports poor activity tolerance due to hospitalization. Education provided on pacing strategies and safe use of 4WW. Pt ambulates 300ft with FWW, RPE 5-6/10 and HR increased from 60-80. Recov ers with seated rest. Ambulates 300ft without AD and requires Miguelina and complains of instabil ity. Pt left up in bathroom with 4WW, instructed to pull the call cord when finished, RN not ified. Pt presents with impaired strength, balance and activity tolerance but demonstrates m obility sufficient for DC home with assist. Recommend HHPT and 4WW at DC. Physical Therapy Discharge Recommendations are: Recommended discharge disposition: home with assist Post discharge physical therapy recommendation: home health Equipment Recommendations: 4 wheeled walker (4WW)(per pt she will get from clinic at home) Planned Interventions: gait training, home exercise program, patient/family education Recommended Frequency: one time visit Onset of Illness/Injury: 11/19/19 Pertinent History of Current Problem: Pt is a 83 yo female who was admitted from a hospital in [facility], [place] with septic shock from PNA. Course complicated by afib with RVR which spo ntaneously converted to SR with treatment of sepsis and resuming home metoprolol. PMH includ es afib, CAD, HLD, HTN, mitral regurg and DM2. Impairments Found: aerobic capacity/endurance, functional endurance/activity tolerance, gai t, locomotion, and balance, motor function, muscle performance, ROM General Information: Precautions: falls LUE WB status: RUE WB status: LLE WB status: RLE WB status: General Observations: Pt greeted sitting in bedside chair, pleasant and agreeable to thera py Social History: Lives With: child(doroteo), adult Living Arrangements: mobile home # of Stairs to Enter Home: ; Rail: ; # of Stairs Within Home: Additional Information: Per CM note, pt lives in mobile home with dtr who does not assist much. Pt's son's friend, [place] assist and will move onto her property. Uses cane but may nee d walker. Has ramp. Pt drives. Pt has some assistance through [employer]. Prior level of function: Independent Current Pain: denies pain/discomfort At Rest: ; With Activity: Patient Status/Goals: Reflects last filed data and may be from multiple contributors. Gait Level of [place]: stand by assist Assistive Device: 4 wheeled walker (4WW) Distance (feet): 2 x300ft Stairs Transfers Sit-Stand, Level of [place]: supervised Stand-Sit, Level of [place]: supervised Axx-Tcada-Wfn, Assistive Device: 4 wheeled walker (4WW) Toilet, Level of [place]: supervised Toilet, Assistive Device: 4 wheeled walker (4WW) Impairments: strength decreased Bed Mobility not tested Wheelchair Mobility Balance Sitting Balance: Static: normal balance Sitting Balance: Dynamic: normal balance Standing Balance: Static: fair balance Standing Balance: Dynamic: fair balance Therapeutic Exercise Functional Endurance Fair ROM L LE ROM: WFL R LE ROM: WFL Strength L LE Strength: 4/5 R LE Strength: 4/5 Electronically signed by: Amy Coffey PT, 11/21/2019 11:52 AM lan of Care - Leoncio Karimi RN - 11/21/2019 12:50 AM PDT Nursing Handoff Note Room # 225/904-02 None Item for service writer Comments Shift Summary A/O. VSS. SR/SB on tele. SBA OOB. Denies pain. Shea in place for I&Os and d raining well. Dx/Tx: Severe Sepsis / PNA / e coli bacteremia ROSALVA Ischemic cardiomyopathy afib RVR Shock liver Prolonged QTc DM2 Code Status: DNR (No Code) Tele/Cardiac: SB/SR PICC/Lines: PIV Active Gtt: dextrose 10% sodium chloride 0.9% 65 mL/hr at 11/20/19 1008 Abn Labs/Tx: Neuro/Mentation: A/O Mobility/HRF Interventions: Pandya Fall Risk Level: High Activity Comments: SBA Bed Alarm on? [] Yes / [x] No Therapy Involved? (PT/OT/ST/RT) Respiratory/Oxygen: RA DC Plan: (Able to manage at home?) TBD VTE Prophylaxis: (SCD or Rx?) Diet: Current active diet order is: Diet Diet renal; Effective Now /Shea: Active Urinary Caths Urinary Catheter Urethral Catheter 11/19/19 1129 1 day D/C Date: GI/Last bowel movement: Last Bowel Movement: 11/19/19 Skin: Groin rash - myc Pain Management : Denies Acceptable Level of Pain Vitals: 11/20/19 1549 11/20/19 1858 11/20/19 1954 11/20/19 2341 BP: 139/70 141/77 149/74 Pulse: 60 70 62 63 Resp: 20 16 18 Temp: 36.4 C (97.6 F) 36.7 C (98.1 F) 36.1 C (97 F) TempSrc: Temporal Temporal Temporal SpO2: 94% 93% 95% Weight: Height: Component Value Date/Time POCGLU 136 (H) 11/20/2019 2101 POCGLU 96 11/20/2019 1728 POCGLU 92 11/20/2019 1228 POCGLU 116 (H) 11/20/2019 0700 lan of Care - Jackeline Lopez RN - 11/20/2019 6:40 PM PDTFormatting of this note might be different from t he original. Float Nursing Handoff Note Electronically signed by: Jackeline Holt RN 11/20/2019 6:40 PM I am floating to home Patient :Yumiko Peguero 83 y.o. 904/904-02 Item for service writer Comments Dx/Tx: Sepsis, IV abx Alert and oriented, SBA OOB Shock liver and ROSALVA per Md, BU No SOB IV vit K per INR 5.2 Code Status: DNR (No Code) Tele: Orientation Mobility Bowels / Bladder Pain Medications Next Due IVs PIV R-arm NS at 65 cc Abn Labs/Tx: DC Plan / Placement Issues: Procedures to be done Other Comments Vitals: 11/20/19 0100 11/20/19 0536 11/20/19 0721 11/20/19 1549 BP: 117/60 126/72 139/70 Pulse: 60 58 60 Resp: Temp: 36.7 C (98.1 F) 36.6 C (97.8 F) 36.4 C (97.6 F) TempSrc: Temporal Temporal Temporal SpO2: 97% 90% 94% Weight: 68 kg (150 lb) Height: lan of Care - Neeru Tan RN - 11/20/2019 1:33 PM PDT Nursing Handoff Note Room # 904/904-02 None Item for service writer Comments Shift Summary Patient A/O, SBA up to chair and to Bathroom. BU patent and draining well, bi carb gtt d/mitzi and cont NS infusion started at 65 ml/hr. Held metoprolol this AM as HR was s ustaining in the 50s. Heparin held for INR 5.2. Miconazole powder ordered and given for red groin rash. No complaints of pain. Dx/Tx: Acute kidney injury (ROSALVA) with acute tubular necrosis (ATN) (HCC) Septic shock (HCC) Bacteremia due to Escherichia coli Bradycardia Ischemic cardiomyopathy Atrial fibrillation with RVR (HCC) Hyperkalemia Shock liver Type 2 diabetes mellitus (HCC) Prolonged Q-T interval on ECG Coronary artery disease involving little shell tribe coronary artery of little shell tribe heart without angina pec toris Metabolic acidosis Code Status: DNR (No Code) Tele/Cardiac: SR/SB PICC/Lines: Type: PIV x2 Active Gtt: dextrose 10% sodium chloride 0.9% 65 mL/hr at 11/20/19 1008 Abn Labs/Tx: Neuro/Mentation: A/o, forgetful Mobility/HRF Interventions: Pandya Fall Risk Level: High Activity Comments: CGA - calls approp Bed Alarm on? [] Yes / [x] No Therapy Involved? (PT/OT/ST/RT) PT/OT/SW Respiratory/Oxygen: RA DC Plan: (Able to manage at home?) TBD VTE Prophylaxis: (SCD or Rx?) INR elevated Diet: Current active diet order is: Diet Diet renal; Effective Now /Shea: Active Urinary Caths Urinary Catheter Urethral Catheter 11/19/19 1129 1 day D/C Date: GI/Last bowel movement: Last Bowel Movement: 11/19/19 Skin: Pain Management : Acceptable Level of Pain C-SSRS Monitoring Requirements PHS Suicide Policy [facility] Suicide Risk/Telesitter Screening Utilizing this rating scale, the suicidal patient will be monitored in the following manner : [] Score <=2 "yes" responses, Patient does not require observation [] Score =3 "yes" responses, Patient can be observed using a Telesitter [] Score >=4 "yes" responses, Patient requires in person continual visual observation Appropriate interventions were placed based on the above criteria and room preparation will be completed for safety based on suicide observation protocols. Vitals: 11/20/19 0028 11/20/19 0100 11/20/19 0536 11/20/19 0721 BP: 102/69 117/60 126/72 Pulse: 59 60 58 Resp: 20 Temp: 36.4 C (97.5 F) 36.7 C (98.1 F) 36.6 C (97.8 F) TempSrc: Temporal Temporal Temporal SpO2: 98% 97% 90% Weight: 68 kg (150 lb) Height: Component Value Date/Time POCGLU 116 (H) 11/20/2019 0700 POCGLU 138 (H) 11/19/2019 2052 POCGLU 131 (H) 11/19/2019 1721 POCGLU 165 (H) 11/19/2019 1159 lan of Sanchez - Estefany Park LCSW - 11/20/2019 10:56 AM PDTSOCIAL WORK PLAN: TBD, possible SNF NEXT STEPS: SW involvement pending rehab recommendation. SW to follow. INTERVENTION: per dc planning, pt is current with HH. PT/OT orders being put in to determi ne if she needs SNF. SW to follow. Previous SW intervention: SW acknowledges consult for possible placmeent. Per chart review, once pt is more stabl e PT and OT will see and make recommendations. SW to follow and assist. Pt lives in [place], [place]. CONTACTS: [phone] lan of Care - Rachael David RN - 11/20/2019 6:29 AM PDT Nursing Handoff Note Room # 424/904-02 None Item for service writer Comments Shift Summary Pleasant and cooperative. Resting between cares. No pain reported. Bicarb gtt running. Lactate improved to 1.7. BU draining well. Dx/Tx: Acute kidney injury (ROSALVA) with acute tubular necrosis (ATN) (HCC) Septic shock (HCC) Bacteremia due to Escherichia coli Bradycardia Ischemic cardiomyopathy Atrial fibrillation with RVR (HCC) Hyperkalemia Shock liver Type 2 diabetes mellitus (HCC) Prolonged Q-T interval on ECG Coronary artery disease involving little shell tribe coronary artery of little shell tribe heart without angina pec toris Metabolic acidosis Code Status: DNR (No Code) Tele/Cardiac: SB/SR w/ BBB PICC/Lines: Type: R/L PIV x2 Active PICC Lines None Active Gtt: dextrose 10% sodium bicarbonate infusion in QS base 65 mL/hr at 11/20/19 0233 Abn Labs/Tx: Na 132 Cl 98 BUN 37 Cr 1.62 Gluc 107 AST 4869 ALT 2925 H/H 10.3/31.2 Neuro/Mentation: A/O, forgetful Mobility/HRF Interventions: Pandya Fall Risk Level: High Activity Comments: CGA Bed Alarm on? [x] Yes / [] No Therapy Involved? (PT/OT/ST/RT) SW Respiratory/Oxygen: RA DC Plan: (Able to manage at home?) TBD VTE Prophylaxis: (SCD or Rx?) SQ heparin Diet: Current active diet order is: Diet Diet renal; Effective Now /Shea: Active Urinary Caths Urinary Catheter Urethral Catheter 11/19/19 1129 less than 1 day D/C Date: GI/Last bowel movement: Last Bowel Movement: 11/19/19 Skin: Rash to groin, scattered bruising Pain Management : Denies Acceptable Level of Pain C-SSRS Monitoring Requirements PHS Suicide Policy [facility] Suicide Risk/Telesitter Screening Utilizing this rating scale, the suicidal patient will be monitored in the following manner : [] Score <=2 "yes" responses, Patient does not require observation [] Score =3 "yes" responses, Patient can be observed using a Telesitter [] Score >=4 "yes" responses, Patient requires in person continual visual observation Appropriate interventions were placed based on the above criteria and room preparation will be completed for safety based on suicide observation protocols. Vitals: 11/19/19 2048 11/20/19 0028 11/20/19 0100 11/20/19 0536 BP: 144/80 102/69 117/60 Pulse: 63 59 60 Resp: 20 20 20 Temp: 36.4 C (97.6 F) 36.4 C (97.5 F) 36.7 C (98.1 F) TempSrc: Temporal Temporal Temporal SpO2: 95% 98% 97% Weight: 68 kg (150 lb) Height: Component Value Date/Time POCGLU 138 (H) 11/19/20192051 POCGLU 131 (H) 11/19/2019 1721 POCGLU 165 (H) 11/19/2019 1159 POCGLU 133 (H) 02/06/2012 0922 ssessment & Plan Note - Canelo Salazar MD - 11/19/2019 8:42 PM PDTAssociated Problem(s): Acute kidn ey injury (ROSALVA) with acute tubular necrosis (ATN) (HCC) (Resolved 11/23/2019)Creatinine back t o normal now.ROSALVA was likely due to transient hypotension with ATN. Not currently volume ove rloaded. lan o f Sanchez - Mariangel Whitehead RN - 11/19/2019 6:48 PM PDTFormatting of this note might be di fferent from the original. Nursing Handoff Note Room # 923/923-02 None Item for service writer Comments Shift Summary Patient transferred here today from [facility] in [place]. Ad mitted to [facility] on11/14 with productive cough, fever/chills, septic shock with PNA an d almonte-sensitive Ecoli bacteremia. Was COVID Neg. Required brief pressor support. Was started on IV abx. Then on 11/17, into afib RVR for the 2nd time, treated with amiodarone bolus whic h resulted in bradycardia (HR range 50s-70s), decreased urine output (BU placed) and on 11/18, labs notable for worsening transaminitis. Transfered to [facility] for higher level of care. Pt is A/O with intermittent confusion. Trending LA. HR still in 50-60's. On 65mL/hr Sodium Bicarbonate. Cardiology and Nephrology following. Pt denies any pain, CP, SOB. C/o of some d izziness with ambulation when first arrived. SBA to BSC. Pt pleasant for cares. Please review lab report, call for critical LA values even if decreased from last. Dx/Tx: Acute kidney injury (ROSALVA) with acute tubular necrosis (ATN) (HCC) Septic shock (HCC) Bacteremia due to Escherichia coli Bradycardia Ischemic cardiomyopathy Atrial fibrillation with RVR (HCC) Hyperkalemia Shock liver Type 2 diabetes mellitus (HCC) Prolonged Q-T interval on ECG Coronary artery disease involving little shell tribe coronary artery of little shell tribe heart without angina pec toris Metabolic acidosis Code Status: DNR (No Code) Tele/Cardiac: Juani ardon PICC/Lines: Type: PIV x2 Active PICC Lines None Active Gtt: dextrose 10% sodium bicarbonate infusion in QS base 65 mL/hr at 11/19/19 1517 Abn Labs/Tx: Neuro/Mentation: Mobility/HRF Interventions: Pandya Fall Risk Level: High Activity Comments: Bed Alarm on? [] Yes / [] No Therapy Involved? (PT/OT/ST/RT) Respiratory/Oxygen: RA DC Plan: (Able to manage at home?) TBD VTE Prophylaxis: (SCD or Rx?) Diet: Current active diet order is: Diet Diet renal; Effective Now /Shea: Active Urinary Caths Urinary Catheter Urethral Catheter 11/19/19 1129 less than 1 day D/C Date: GI/Last bowel movement: Skin: Pain Management : Acceptable Level of Pain C-SSRS Monitoring Requirements PHS Suicide Policy [facility] Suicide Risk/Telesitter Screening Utilizing this rating scale, the suicidal patient will be monitored in the following manner : [] Score <=2 "yes" responses, Patient does not require observation [] Score =3 "yes" responses, Patient can be observed using a Telesitter [] Score >=4 "yes" responses, Patient requires in person continual visual observation Appropriate interventions were placed based on the above criteria and room preparation will be completed for safety based on suicide observation protocols. Vitals: 11/19/19 1021 11/19/19 1439 11/19/19 1839 BP: 118/77 132/62 156/77 Pulse: 55 70 Resp: 24 20 Temp: 36 C (96.8 F) 36.6 C (97.8 F) TempSrc: Temporal Temporal SpO2: 99% 97% Weight: 67.9 kg (149 lb 12.8 oz) Height: 1.422 m (4' 8") Component Value Date/Time POCGLU 131 (H) 11/19/2019 1721 POCGLU 165 (H) 11/19/2019 1159 POCGLU 133 (H) 02/06/2012 0922 ssessment & Plan Note - Pily Gomez ARNP - 11/19/2019 12:52 PM PDTAssociated Problem(s): Bradyca rdiaPauses after amiodarone, but no real documented symptoms, no recurrence while on Toprol- XL. If the patient has recurrent rapid atrial fibrillation alternating with significant aliza ycardia, she may require pacemaker implantation. If pacemaker is required, would consider CR T P or MATTRESS SPECIALIST D. P M PDTAssessment & Plan Note - Canelo Salazar MD - 11/19/2019 12:51 PM PDTAssociated Problem(s): Ischemic cardiomyopathySeverely depressed EF of 20% and moderate to severe joseph l regurgitation. Continue Toprol (which we have been cautious about dosing given her 9-seco nd conversion pause earlier this admission). Tolerated starting losartan, which I will incr ease today to her home dose of 25 mg daily. She needs an outpatient consult with Dr. York post discharge to continue to assess for MATTRESS SPECIALIST pacemaker. ssessment & Plan Note - Canelo Salazar MD - 11/19/2019 12:48 PM PDTAssociated Problem(s): Atrial fibrillation with RVR (HCC)No amiodaron e, just low-dose beta-mima. Outpatient MCT post discharge to look for more pauses/A. fib . She will also need an outpatient consult with Dr. York to discuss MATTRESS SPECIALIST pacer, though her QRS is less than 150 ms wide, so she may not respond as well as patients with a wider QRS. Recommend holding amiodarone for now given significant transaminates and 9 second conversion pause. Currently rate controlled Afib. Plan: Continue Toprol-XL 25 mg daily Depending on liver enzymes and INR in AM, consider restarting Warfarin MCT upon discharge to evaluate further sinus node dysfunction lan of Care - Nadia Morrow RN - 11/18 11:14 AM PDTAdmission screen completed by Wil JOSE Halina Report handoff given to 9N RN Mariangel De La oTrre RN has completed admission flow sheet except for shift assessment, fall risk, tanner assessment. Information for admission documentation was received from [facility] chart review and pt report. Patient is A/O, resting comfortably in bed, call light within reach. Has personal cell phon e. COVID (-) prior to transfer per [facility] chart review. Per [facility] CM note: "States she live in [place] in modular home. Dtr lives with her but does not assist much. Friend of her son's, [place], assists her and is moving onto her proper ty. She uses a cane but feels she will be needing a walker. She drives herself and gets comm odities through [employer] and the [employer]. Has applied for electricity assistance and heating thro yimi [employer] but was turned down. She has a ramp into her home, doesn't use. Pt plans on dc to home on discharge." TPlan of Estefany Franklin LCSW - 11/19/2019 11:07 AM PDTTBD lan of Estefany Franklin LCSW - 11/19/2019 11:04 AM PDTSOCIAL WORK PLAN: TBD, possible placement NEXT STEPS: SW to follow and assist once pt is more stable INTERVENTION: SW acknowledges consult for possible placmeent. Per chart review, once pt is more stable PT and OT will see and make recommendations. SW to follow and assist. Pt live s in [place], [place]. CONTACTS: [phone] oals of Care - Madison Stark MD - 11/19/2019 10:47 AM PDTDESIRED LEVEL OF CARE: If the patient decompensates, but has a pulse and is breathing, the following are to be con sidered: Intubation & Mechanical Ventilation Yes Manual Ventilation/Bagging Yes Noninvasive Ventilation Yes Cardioversion or Pacing Yes Vasopressors Yes ICU Level of Care Yes Hemodialysis Yes Medically Administered Nutrition Yes Desired level of care discussed with: Patient Discussion date 11/19/2019 Additional Comments: patient does NOT want CPR ospital Course - [place], Morales Quezada MD - 11/19/2019 8:20 AM PDT83 yo female with h/o NIDDM, ischemic cardiomyo jemima with EF 25-30% by TTE 2014, severe mitral regurgitation, CAD with prior PCI x2, and at rial fib who presented to [facility] in [facility] on 11/14 with productive coug h and fever/chills, found to be in septic shock 2/2 presumed PNA and almonte-sensitive Ecoli annette teremia (repeat bcx 11/16 negative). UA was unremarkable for infection. CXR showed ?right lung base prominence - artifact vs early infiltrate. Admitted to the ICU and required brief pres sor support. Was started on CTX/azithromycin. COVID negative. Initial TNI and EKG negative. BNP was >700, lactate 4. Course complicated by afib with RVR which spontaneously converted t o SR with treatment of sepsis and resuming home metoprolol. She was noted to have a 9 second pauses while in afib. TTE showed EF 25%, unchanged from prior. She was started on eliquis. On 11/16, she developed SOB with concern for volume overload on imaging so was diuresed. She did have mild TNI bump to 0.08. On 11/17, she went back into afib RVR, treated with amiodarone bolus which resulted in bradycardia (HR range 50s-70s). Overnight she was noted to have dec reased UOP (documented 45 cc only but no shea was in place for more accurate measurements) and on 11/18, labs notable for worsening transaminitis with AST 1500, ALT 1000 (pt had elevate d LFTs on admit which had improved with treatment of sepsis), Cr 1.6 from 0.8 the day prior, bicarb 12 and potassium 5.9. EKG without peaked T-waves but did show QTc 601 ms and QRS 152 ms. She was given calcium gluconate and started on a bicarb gtt. Transfer to [facility] for highe r level of care. Dr. York ([facility]) was called given pt's h/o ICM, afib, 9 second pause, accepti ng the patient for transfer and agreed with cardiology consultation on arrival. After the patient's transfer to [facility] she continued to improve on a d aily basis. Her shock liver transaminitis resolved, her acute kidney injury resolved, and h er hypoxia resolved. She was treated for 7 days of IV ceftriaxone following her repeat nega tive blood culture from the outside facility on 11/17/2019 for complete course of antibiotics for her bacteremia. Cardiology was consulted and started her on a low-dose beta-mima and restarted her ARB a s well as her warfarin. Her rate has been well controlled with no further pauses. [facility] plans to organize outpatient mobile cardiac telemetry at the time of discharge as well as follow-up with Dr. York as an outpatient to reassess for MATTRESS SPECIALIST pacer/defibrillator i n the future. Home health has been ordered and she is expected to possibly discharge back to the [place] area on 11/24/2019. documented in th is encounter Plan of Treatment +--------+---------+ + + + | Date | Type | Specialty | Care Team | Description | +--------+---------+ + + + | 01/26/ | Office | Sleep Medicine | Amy Jiang | | | 2019 | Visit | | LATRELL Tracy [address] | | | | | [address] | | | | | | [place] [address] | | | | | | [phone] | | | | | | | | +--------+---------+ + + + + + +--------+ + + | Name | Type | Priori | Associated Diagnoses | Order Schedule | | | | ty | | | + + +--------+ + + | Referral to Home | Outpatient | Routin | Acute kidney | Ordered: 11/23/2019 | | Health - OUTPATIENT | Referral | e | injury (ROSALVA) with | | | | | | acute tubular | | | | | | necrosis (ATN) ([facility]) | | | | | | Atrial | | | | | | fibrillation with | | | | | | RVR ([facility]) | | | | | | Bradycardia | | | | | | Coronary artery | | | | | | disease involving | | | | | | little shell tribe coronary | | | | | | artery of little shell tribe | | | | | | heart without angina | | | | | | pectoris Ischemic | | | | | | cardiomyopathy | | | | | | Septic shock ([facility]) | | | | | | Shock liver Type 2 | | | | | | diabetes mellitus | | | | | | with other specified | | | | | | complication, | | | | | | without long-term | | | | | | current use of | | | | | | insulin ([facility]) | | | | | | Mitral valve | | | | | | insufficiency, | | | | | | unspecified etiology | | + + +--------+ + + documented as of this encounter Procedures + +--------+ + + + | Procedure Name | Priori | Date/Time | Associated Diagnosis | Comments | | | ty | | | | + +--------+ + + + | POC GLUCOSE | Routin | 11/24/2019 | | Results for this | | | e | 12:00 PM | | procedure are in the | | | | PDT | | results section. | + +--------+ + + + | POC GLUCOSE | Routin | 11/24/2019 | | Results for this | | | e | 6:42 AM | | procedure are in the | | | | PDT | | results section. | + +--------+ + + + | PROTIME INR | Routin | 11/24/2019 | | Results for this | | | e | 3:20 AM | | procedure are in the | | | | PDT | | results section. | + +--------+ + + + | CBC NO DIFFERENTIAL | Routin | 11/24/2019 | | Results for this | | | e | 3:20 AM | | procedure are in the | | | | PDT | | results section. | + +--------+ + + + | MAGNESIUM | Routin | 11/24/2019 | | Results for this | | | e | 3:20 AM | | procedure are in the | | | | PDT | | results section. | + +--------+ + + + | COMPREHENSIVE | Routin | 11/24/2019 | | Results for this | | METABOLIC PANEL | e | 3:20 AM | | procedure are in the | | | | PDT | | results section. | + +--------+ + + + | POC GLUCOSE | Routin | 11/23/2019 | | Results for this | | | e | 8:31 PM | | procedure are in the | | | | PDT | | results section. | + +--------+ + + + | POC GLUCOSE | Routin | 11/23/2019 | | Results for this | | | e | 5:09 PM | | procedure are in the | | | | PDT | | results section. | + +--------+ + + + | POC GLUCOSE | Routin | 11/23/2019 | | Results for this | | | e | 11:30 AM | | procedure are in the | | | | PDT | | results section. | + +--------+ + + + | POC GLUCOSE | Routin | 11/23/2019 | | Results for this | | | e | 6:16 AM | | procedure are in the | | | | PDT | | results section. | + +--------+ + + + | PROTIME INR | Routin | 11/23/2019 | | Results for this | | | e | 2:55 AM | | procedure are in the | | | | PDT | | results section. | + +--------+ + + + | POC GLUCOSE | Routin | 11/22/2019 | | Results for this | | | e | 8:03 PM | | procedure are in the | | | | PDT | | results section. | + +--------+ + + + | POC GLUCOSE | Routin | 11/22/2019 | | Results for this | | | e | 4:10 PM | | procedure are in the | | | | PDT | | results section. | + +--------+ + + + | POC GLUCOSE | Routin | 11/22/2019 | | Results for this | | | e | 11:34 AM | | procedure are in the | | | | PDT | | results section. | + +--------+ + + + | POC GLUCOSE | Routin | 11/22/2019 | | Results for this | | | e | 6:55 AM | | procedure are in the | | | | PDT | | results section. | + +--------+ + + + | PROTIME INR | Routin | 11/22/2019 | | Results for this | | | e | 3:39 AM | | procedure are in the | | | | PDT | | results section. | + +--------+ + + + | CBC NO DIFFERENTIAL | Routin | 11/22/2019 | | Results for this | | | e | 3:39 AM | | procedure are in the | | | | PDT | | results section. | + +--------+ + + + | MAGNESIUM | Routin | 11/22/2019 | | Results for this | | | e | 3:39 AM | | procedure are in the | | | | PDT | | results section. | + +--------+ + + + | COMPREHENSIVE | Routin | 11/22/2019 | | Results for this | | METABOLIC PANEL | e | 3:39 AM | | procedure are in the | | | | PDT | | results section. | + +--------+ + + + | POC GLUCOSE | Routin | 11/21/2019 | | Results for this | | | e | 8:53 PM | | procedure are in the | | | | PDT | | results section. | + +--------+ + + + | POC GLUCOSE | Routin | 11/21/2019 | | Results for this | | | e | 4:04 PM | | procedure are in the | | | | PDT | | results section. | + +--------+ + + + | ECHO COMPLETE | Routin | 11/21/2019 | | Results for this | | | e | 12:30 PM | | procedure are in the | | | | PDT | | results section. | + +--------+ + + + | POC GLUCOSE | Routin | 11/21/2019 | | Results for this | | | e | 12:26 PM | | procedure are in the | | | | PDT | | results section. | + +--------+ + + + | POC GLUCOSE | Routin | 11/21/2019 | | Results for this | | | e | 6:42 AM | | procedure are in the | | | | PDT | | results section. | + +--------+ + + + | PROTIME INR | Routin | 11/21/2019 | | Results for this | | | e | 4:25 AM | | procedure are in the | | | | PDT | | results section. | + +--------+ + + + | CBC NO DIFFERENTIAL | Routin | 11/21/2019 | | Results for this | | | e | 4:25 AM | | procedure are in the | | | | PDT | | results section. | + +--------+ + + + | PHOSPHORUS | Routin | 11/21/2019 | | Results for this | | | e | 4:25 AM | | procedure are in the | | | | PDT | | results section. | + +--------+ + + + | MAGNESIUM | Routin | 11/21/2019 | | Results for this | | | e | 4:25 AM | | procedure are in the | | | | PDT | | results section. | + +--------+ + + + | COMPREHENSIVE | Routin | 11/21/2019 | | Results for this | | METABOLIC PANEL | e | 4:25 AM | | procedure are in the | | | | PDT | | results section. | + +--------+ + + + | POC GLUCOSE | Routin | 11/20/2019 | | Results for this | | | e | 9:01 PM | | procedure are in the | | | | PDT | | results section. | + +--------+ + + + | POC GLUCOSE | Routin | 11/20/2019 | | Results for this | | | e | 5:28 PM | | procedure are in the | | | | PDT | | results section. | + +--------+ + + + | POC GLUCOSE | Routin | 11/20/2019 | | Results for this | | | e | 12:28 PM | | procedure are in the | | | | PDT | | results section. | + +--------+ + + + | POC GLUCOSE | Routin | 11/20/2019 | | Results for this | | | e | 7:00 AM | | procedure are in the | | | | PDT | | results section. | + +--------+ + + + | CBC WITH | Routin | 11/20/2019 | | Results for this | | DIFFERENTIAL | e | 4:13 AM | | procedure are in the | | | | PDT | | results section. | + +--------+ + + + | LACTIC ACID | Routin | 11/20/2019 | | Results for this | | | e | 4:13 AM | | procedure are in the | | | | PDT | | results section. | + +--------+ + + + | COMPREHENSIVE | Routin | 11/20/2019 | | Results for this | | METABOLIC PANEL | e | 4:13 AM | | procedure are in the | | | | PDT | | results section. | + +--------+ + + + | POC GLUCOSE | Routin | 11/19/2019 | | Results for this | | | e | 8:52 PM | | procedure are in the | | | | PDT | | results section. | + +--------+ + + + | LACTIC ACID | Timed | 11/19/2019 | | Results for this | | | | 7:49 PM | | procedure are in the | | | | PDT | | results section. | + +--------+ + + + | POC GLUCOSE | Routin | 11/19/2019 | | Results for this | | | e | 5:21 PM | | procedure are in the | | | | PDT | | results section. | + +--------+ + + + | LACTIC ACID | Timed | 11/19/2019 | | Results for this | | | | 3:05 PM | | procedure are in the | | | | PDT | | results section. | + +--------+ + + + | HEPATITIS PANEL, | Add-On | 11/19/2019 | | Results for this | | ACUTE | | 1:23 PM | | procedure are in the | | | | PDT | | results section. | + +--------+ + + + | UREA NITROGEN, | STAT | 11/19/2019 | | Results for this | | URINE, RANDOM | | 1:05 PM | | procedure are in the | | | | PDT | | results section. | + +--------+ + + + | SODIUM, URINE, | STAT | 11/19/2019 | | Results for this | | RANDOM | | 1:05 PM | | procedure are in the | | | | PDT | | results section. | + +--------+ + + + | CREATININE, URINE, | STAT | 11/19/2019 | | Results for this | | RANDOM | | 1:05 PM | | procedure are in the | | | | PDT | | results section. | + +--------+ + + + | URINALYSIS WITH | STAT | 11/19/2019 | | Results for this | | MICROSCOPIC | | 1:05 PM | | procedure are in the | | | | PDT | | results section. | + +--------+ + + + | POC GLUCOSE | Routin | 11/19/2019 | | Results for this | | | e | 11:59 AM | | procedure are in the | | | | PDT | | results section. | + +--------+ + + + | URINALYSIS WITH | STAT | 11/19/2019 | | Results for this | | MICROSCOPIC | | 11:10 AM | | procedure are in the | | | | PDT | | results section. | + +--------+ + + + | HC PLATELET COUNT | Add-On | 11/19/2019 | | Results for this | | | | 10:53 AM | | procedure are in the | | | | PDT | | results section. | + +--------+ + + + | TROPONIN I | STAT | 11/19/2019 | | Results for this | | | | 10:53 AM | | procedure are in the | | | | PDT | | results section. | + +--------+ + + + | PROTIME INR | STAT | 11/19/2019 | | Results for this | | | | 10:53 AM | | procedure are in the | | | | PDT | | results section. | + +--------+ + + + | CBC NO DIFFERENTIAL | STAT | 11/19/2019 | | Results for this | | | | 10:53 AM | | procedure are in the | | | | PDT | | results section. | + +--------+ + + + | MAGNESIUM | STAT | 11/19/2019 | | Results for this | | | | 10:53 AM | | procedure are in the | | | | PDT | | results section. | + +--------+ + + + | LACTIC ACID | STAT | 11/19/2019 | | Results for this | | | | 10:53 AM | | procedure are in the | | | | PDT | | results section. | + +--------+ + + + | COMPREHENSIVE | STAT | 11/19/2019 | | Results for this | | METABOLIC PANEL | | 10:53 AM | | procedure are in the | | | | PDT | | results section. | + +--------+ + + + | ECG 12 LEAD | STAT | 11/19/2019 | | Results for this | | | | 10:28 AM | | procedure are in the | | | | PDT | | results section. | + +--------+ + + + | LABS - EXTERNAL SCAN | | 11/19/2019 | | Results for this | | | | 12:00 AM | | procedure are in the | | | | PDT | | results section. | + +--------+ + + + | ECG - EXTERNAL SCAN | | 11/19/2019 | | Results for this | | | | 12:00 AM | | procedure are in the | | | | PDT | | results section. | + +--------+ + + + | ARRHYTHMIA MONITOR - | | 11/16/2019 | | Results for this | | EXTERNAL SCAN | | 12:00 AM | | procedure are in the | | | | PDT | | results section. | + +--------+ + + + | ECHO-EXTERNAL SCAN | | 11/16/2019 | | Results for this | | | | 12:00 AM | | procedure are in the | | | | PDT | | results section. | + +--------+ + + + documented in this encounter Results POC Glucose (11/24/2019 12:00 PM PDT) + + + + --+ + | Component | Value | Ref Range | Performed | Pathologist | | | | | At | Signature | + + + + --+ + | Glucose, | 98Comment: Performed by | 65 - 99 mg/dL | [facility] | | | POC | [facility] [address], | | [facility]CRED | | | | [place] [address] | | HEART | | | |Performed by [facility] [address], [place] [address] | | MEDICAL | | | | | | CENTER | | | | | | LABORATORY | | | | | | [facility] | | + + + + --+ + + + | Specimen | + + | Blood specimen | | (specimen) | + + + + + + + | Performing | Address | City/State/Zipcode | Phone Number | | Organization | | | | + + + + + | [facility] | [address] | [place] [address] | | | [facility] | | | | | [place] | | | | + + + + + POC Glucose (11/24/2019 6:42 AM PDT) + + + + + + | Component | Value | Ref Range | Performed | Pathologist | | | | | At | Signature | + + + + + + | Glucose, | 110 (H)Comment: | 65 - 99 mg/dL | [facility] | | | POC | Performed by [facility] [address] | | SACRED | | | | [address] [place], [place] | | HEART | | | | [address] | | MEDICAL | | | | | | CENTER | | | | | | LABORATORY | | | | | | [place] | | + + + + + + + + | Specimen | + + | Blood specimen | | (specimen) | + + + + + + + | Performing | Address | City/State/Zipcode | Phone Number | | Organization | | | | + + + + + | [facility] | [address] | [place] [address] | | | [facility] | | | | | LABORATORY [place] | | | | + + + + + Protime INR (11/24/2019 3:20 AM PDT) + + + + + + | Component | Value | Ref Range | Performed | Pathologist | | | | | At | Signature | + + + + + + | Prothrombin | 14.5 (H) | 12.0 - 14.2 sec | [facility] | | | Time | | | [facility]CR[facility] | | | | | | HEART | | | | | | MEDICAL | | | | | | CENTER | | | | | | LABORATORY | | | | | | [place] | | + + + + + + | INR | 1.2 (H)Comment: Usual | 0.9 - 1.1 | [facility] | | | | oral anticoagulant | | [facility]CR[facility] | | | | range: 2.0 to 3.0 High | | HEART | | | | level oral | | MEDICAL | | | | anticoagulant range: 2.5 | | CENTER | | | | to 3.5 Direct Xa and | | LABORATORY | | | | IIa inhibitors may | | [facility] | | | | interfere with INR | | | | | | determinations.Performed | | | | | | by [facility] [address], | | | | | | [place] [address] | | | | + + + + + + + + | Specimen | + + | Blood specimen | | (specimen) | + + + + + + + | Performing | Address | City/State/Zipcode | Phone Number | | Organization | | | | + + + + + | [facility] | [address] | [place] [address] | | | [facility] | | | | | LABORATORY [place] | | | | + + + + + Magnesium (11/24/2019 3:20 AM PDT) + + + +--------- ----+ + | Component | Value | Ref Range | Performe d | Pathologist | | | | | At | Signature | + + + +--------- ----+ + | Magnesium | 2.0Comment: Performed | 1.7 - 2.4 mg/dL | [facility] | | | | by [facility] [address], | | SACRED | | | | [place], [place] | | HEART | | | |Performed by [facility] [address], [place], [place] | | MEDICAL | | | | | | CENTER | | | | | | LABORATO RY | | | | | | [facility] | | + + + +--------- ----+ + + + | Specimen | + + | Blood specimen | | (specimen) | + + + + + + + | Performing | Address | City/State/Zipcode | Phone Number | | Organization | | | | + + + + + | [facility] | [address] | [place], [place] | | | [facility] | | | | | LABORATORY [facility] | | | | + + + + + Comprehensive Metabolic Panel (11/24/2019 3:20 AM PDT) + + + + + [...] | | LABORATORY | | | | | | [place] | | + + + + + + | K | 4.4 | 3.5 - 5.0 | [facility] | | | | | mmol/L | [facility]CR[facility] | | | | | | HEART | | | | | | MEDICAL | | | | | | CENTER | | | | | | LABORATORY | | | | | | [place] | | + + + + + + | Cl | 106 | 99 - 109 mmol/L | [facility] | | | | | | [facility]CR[facility] | | | | | | HEART | | | | | | MEDICAL | | | | | | CENTER | | | | | | LABORATORY | | | | | | [place] | | + + + + + + | CO2 | 25 | 21 - 28 mmol/L | [facility] | | | | | | [facility] | | | | | | HEART | | | | | | MEDICAL | | | | | | CENTER | | | | | | LABORATORY | | | | | | [place] | | + + + + + + | Calcium | 8.6 | 8.5 - 10.2 | [facility] | | | | | mg/dL | [facility]CR[facility] | | | | | | HEART | | | | | | MEDICAL | | | | | | CENTER | | | | | | LABORATORY | | | | | | [place] | | + + + + + + | Anion Gap | 9 | 5 - 16 mmol/L | [facility] | | | | | | [facility] | | | | | | HEART | | | | | | MEDICAL | | | | | | CENTER | | | | | | LABORATORY | | | | | | [place] | | + + + + + + | Albumin | 3.8 | 3.3 - 4.8 g/dL | [facility] | | | | | | [facility] | | | | | | HEART | | | | | | MEDICAL | | | | | | CENTER | | | | | | LABORATORY | | | | | | [place] | | + + + + + + | BUN | 8 | 8 - 25 mg/dL | [facility] | | | | | | [facility]CR[facility] | | | | | | HEART | | | | | | MEDICAL | | | | | | CENTER | | | | | | LABORATORY | | | | | | [place] | | + + + + + + | Creatinine | 0.64 | 0.50 - 1.00 | [facility] | | | | | mg/dL | [facility]CR[facility] | | | | | | HEART | | | | | | MEDICAL | | | | | | CENTER | | | | | | LABORATORY | | | | | | [place] | | + + + + + + | Glucose | 107 (H) | 65 - 99 mg/dL | [facility] | | | | | | [facility] | | | | | | HEART | | | | | | MEDICAL | | | | | | CENTER | | | | | | LABORATORY | | | | | | [place] | | + + + + + + | Total | 5.8 (L) | 6.1 - 7.8 g/dL | [facility] | | | Protein | | | SACRED | | | | | | HEART | | | | | | MEDICAL | | | | | | CENTER | | | | | | LABORATORY | | | | | | [place] | | + + + + + + | Alkaline | 223 (H) | 35 - 115 U/L | [facility] | | | Phosphatase | | | [facility]CRED | | | | | | HEART | | | | | | MEDICAL | | | | | | CENTER | | | | | | LABORATORY | | | | | | [place] | | + + + + + + | ALT | 650 (H) | 10 - 65 U/L | [facility] | | | | | | [facility] | | | | | | HEART | | | | | | MEDICAL | | | | | | CENTER | | | | | | LABORATORY | | | | | | [place] | | + + + + + + | AST | 114 (H) | 10 - 45 U/L | [facility] | | | | | | [facility]CR[facility] | | | | | | HEART | | | | | | MEDICAL | | | | | | CENTER | | | | | | LABORATORY | | | | | | [place] | | + + + + + + | Bilirubin | 1.4 (H) | 0.2 - 1.1 mg/dL | [facility] | | | Total | | | [facility]CR[facility] | | | | | | HEART | | | | | | MEDICAL | | | | | | CENTER | | | | | | LABORATORY | | | | | | [place] | | + + + + + + | Estimated | 84 (L)Comment: eGFR<60 | >=90 | [facility] | | | GFR | consistent with impaired | mL/min/1.73m2 | [facility] | | | | kidney function.For | | HEART | | | | [place], | | MEDICAL | | | | multiply the calculated | | CENTER | | | | GFR by 1.210Performed by | | LABORATORY | | | | [facility] [address], | | [place] | | | | [place] [address] | | | | + + + + + + + + | Specimen | + + | Blood specimen | | (specimen) | + + + + + + + | Performing | Address | City/State/Zipcode | Phone Number | | Organization | | | | + + + + + | [facility] | [address] | [place] [address] | | | [facility] | | | | | LABORATORY [place] | | | | + + + + + CBC no Differential (11/24/2019 3:20 AM PDT) + + + +------- ------+ + | Component | Value | Ref Range | Perfor med | Pathologist | | | | | At | Signature | + + + +------- ------+ + | White Blood | 6.42 | 3.80 - 11.00 | [facility] | | | Cells | | K/uL | [facility] | | | | | | HEART | | | | | | MEDICA L | | | | | | CENTER | | | | | | LABORA TORY | | | | | | [place] | | + + + +------- ------+ + | Red Blood | 4.08 | 3.70 - 5.10 | [facility] | | | Cells | | M/uL | [facility] | | | | | | HEART | | | | | | MEDICA L | | | | | | CENTER | | | | | | LABORA TORY | | | | | | [place] | | + + + +------- ------+ + | Hemoglobin | 11.5 | 11.3 - 15.5 | [facility] | | | | | g/dL | [facility] | | | | | | HEART | | | | | | MEDICA L | | | | | | CENTER | | | | | | LABORA TORY | | | | | | [place] | | + + + +------- ------+ + | Hct | 36.6 | 34.0 - 46.0 % | [facility] | | | | | | [facility] | | | | | | HEART | | | | | | MEDICA L | | | | | | CENTER | | | | | | LABORA TORY | | | | | | [place] | | + + + +------- ------+ + | MCV | 89.7 | 80.0 - 100.0 fL | [facility] | | | | | | [facility] | | | | | | HEART | | | | | | MEDICA L | | | | | | CENTER | | | | | | LABORA TORY | | | | | | [place] | | + + + +------- ------+ + | MCH | 28.2 | 27.0 - 34.0 pg | [facility] | | | | | | [facility] | | | | | | HEART | | | | | | MEDICA L | | | | | | CENTER | | | | | | LABORA TORY | | | | | | [place] | | + + + +------- ------+ + | MCHC | 31.4 (L) | 32.0 - 35.5 | [facility] | | | | | g/dL | [facility] | | | | | | HEART | | | | | | MEDICA L | | | | | | CENTER | | | | | | LABORA TORY | | | | | | [place] | | + + + +------- ------+ + | RDW-CV | 15.1 | 11.0 - 15.5 % | [facility] | | | | | | [facility] | | | | | | HEART | | | | | | MEDICA L | | | | | | CENTER | | | | | | LABORA TORY | | | | | | [place] | | + + + +------- ------+ + | Platelet | 202 | 150 - 400 K/uL | [facility] | | | Count | | | [facility] | | | | | | HEART | | | | | | MEDICA L | | | | | | CENTER | | | | | | LABORA TORY | | | | | | [place] | | + + + +------- ------+ + | MPV | 11.0Comment: Performed | 9.3 - 12.7 fL | [facility] | | | | by [facility] [address], | | SACRED | | | | [place] [address] | | HEART | | | |Performed by [facility] [address], [place] [address] | | MEDICA L | | | | | | CENTER | | | | | | LABORA TORY | | | | | | [place] | | + + + +------- ------+ + + + | Specimen | + + | Blood specimen | | (specimen) | + + + + + + + | Performing | Address | City/State/Zipcode | Phone Number | | Organization | | | | + + + + + | [facility] | [address] | [place] [address] | | | [facility] | | | | | LABORATORY [place] | | | | + + + + + POC Glucose (11/23/2019 8:31 PM PDT) + + + + + + | Component | Value | Ref Range | Performed | Pathologist | | | | | At | Signature | + + + + + + | Glucose, | 115 (H)Comment: | 65 - 99 mg/dL | [facility] | | | POC | Performed by [facility] [address] | [address] | | | | [address], [place] | | HEART | | | | [address] | | MEDICAL | | | | | | CENTER | | | | | | LABORATORY | | | | | | [place] | | + + + + + + + + | Specimen | + + | Blood specimen | | (specimen) | + + + + + + + | Performing | Address | City/State/Zipcode | Phone Number | | Organization | | | | + + + + + | [facility] | [address] | [place] [address] | | | [facility] | | | | | LABORATORY [place] | | | | + + + + + POC Glucose (11/23/2019 5:09 PM PDT) + + + + + + | Component | Value | Ref Range | Performed | Pathologist | | | | | At | Signature | + + + + + + | Glucose, | 129 (H)Comment: | 65 - 99 mg/dL | [facility] | | | POC | Performed by [facility] [address] | | SACRED | | | | [address] [place] | | HEART | | | | [address] | | MEDICAL | | | | | | CENTER | | | | | | LABORATORY | | | | | | [place] | | + + + + + + + + | Specimen | + + | Blood specimen | | (specimen) | + + + + + + + | Performing | Address | City/State/Zipcode | Phone Number | | Organization | | | | + + + + + | [facility] | [address] | [place] [address] | | | [facility] | | | | | [place] | | | | + + + + + POC Glucose (11/23/2019 11:30 AM PDT) + + + + + + | Component | Value | Ref Range | Performed | Pathologist | | | | | At | Signature | + + + + + + | Glucose, | 107 (H)Comment: | 65 - 99 mg/dL | [facility] | | | POC | Performed by [facility] [address] | [address] | | | | [place] | | HEART | | | | [address] | | MEDICAL | | | | | | CENTER | | | | | | LABORATORY | | | | | | [place] | | + + + + + + + + | Specimen | + + | Blood specimen | | (specimen) | + + + + + + + | Performing | Address | City/State/Zipcode | Phone Number | | Organization | | | | + + + + + | [facility] | [address] | [place] [address] | | | [facility] | | | | | [place] | | | | + + + + + POC Glucose (11/23/2019 6:16 AM PDT) + + + + + + | Component | Value | Ref Range | Performed | Pathologist | | | | | At | Signature | + + + + + + | Glucose, | 103 (H)Comment: | 65 - 99 mg/dL | [facility] | | | POC | Performed by [facility] [address] | | SACR[facility] | | | | [address] [place], [place] | | HEART | | | | [address] | | MEDICAL | | | | | | CENTER | | | | | | LABORATORY | | | | | | [place] | | + + + + + + + + | Specimen | + + | Blood specimen | | (specimen) | + + + + + + + | Performing | Address | City/State/Zipcode | Phone Number | | Organization | | | | + + + + + | [facility] | [address] | [place] [address] | | | [facility] | | | | | LABORATORY [place] | | | | + + + + + Protime INR (11/23/2019 2:55 AM PDT) + + + + + + | Component | Value | Ref Range | Performed | Pathologist | | | | | At | Signature | + + + + + + | Prothrombin | 15.1 (H) | 12.0 - 14.2 sec | [facility] | | | Time | | | [facility] | | | | | | HEART | | | | | | MEDICAL | | | | | | CENTER | | | | | | LABORATORY | | | | | | [place] | | + + + + + + | INR | 1.2 (H)Comment: Usual | 0.9 - 1.1 | [facility] | | | | oral anticoagulant | | [facility]CR[facility] | | | | range: 2.0 to 3.0 High | | HEART | | | | level oral | | MEDICAL | | | | anticoagulant range: 2.5 | | CENTER | | | | to 3.5 Direct Xa and | | LABORATORY | | | | IIa inhibitors may | | [facility] | | | | interfere with INR | | | | | | determinations.Performed | | | | | | by [facility] [address], | | | | | | [place] [address] | | | | + + + + + + + + | Specimen | + + | Blood specimen | | (specimen) | + + + + + + + | Performing | Address | City/State/Zipcode | Phone Number | | Organization | | | | + + + + + | [facility]IA[facility]CR[facility] | [address] | [place] [address] | | | [facility] | | | | | [place] | | | | + + + + + POC Glucose (11/22/2019 8:03 PM PDT) + + + + + + | Component | Value | Ref Range | Performed | Pathologist | | | | | At | Signature | + + + + + + | Glucose, | 129 (H)Comment: | 65 - 99 mg/dL | [facility] | | | POC | Performed by [facility] [address] | [address] | | | | [address] [place] [place] | | HEART | | | | [id number] | | MEDICAL | | | | | | CENTER | | | | | | LABORATORY | | | | | | [place] | | + + + + + + + + | Specimen | + + | Blood specimen | | (specimen) | + + + + + + + | Performing | Address | City/State/Zipcode | Phone Number | | Organization | | | | + + + + + | [facility] | [address] | [place] [address] | | | [facility] | | | | | [place] | | | | + + + + + POC Glucose (11/22/2019 4:10 PM PDT) + + + + + + | Component | Value | Ref Range | Performed | Pathologist | | | | | At | Signature | + + + + + + | Glucose, | 106 (H)Comment: | 65 - 99 mg/dL | [facility] | | | POC | Performed by [facility] [address] | | [address] | | | | [address] [place], [place] | | HEART | | | | [address] | | MEDICAL | | | | | | CENTER | | | | | | LABORATORY | | | | | | [place] | | + + + + + + + + | Specimen | + + | Blood specimen | | (specimen) | + + + + + + + | Performing | Address | City/State/Zipcode | Phone Number | | Organization | | | | + + + + + | [facility] | [address] | [place] [address] | | | [facility] | | | | | [place] | | | | + + + + + POC Glucose (11/22/2019 11:34 AM PDT) + + + + + + | Component | Value | Ref Range | Performed | Pathologist | | | | | At | Signature | + + + + + + | Glucose, | 121 (H)Comment: | 65 - 99 mg/dL | [facility] | | | POC | Performed by [facility] [address] | | [address] | | | | [place] | | HEART | | | | [id number] | | MEDICAL | | | | | | CENTER | | | | | | LABORATORY | | | | | | [place] | | + + + + + + + + | Specimen | + + | Blood specimen | | (specimen) | + + + + + + + | Performing | Address | City/State/Zipcode | Phone Number | | Organization | | | | + + + + + | [facility] | [address] | [place] [address] | | | [facility] | | | | | [place] | | | | + + + + + POC Glucose (11/22/2019 6:55 AM PDT) + + + + --+ + | Component | Value | Ref Range | Performed | Pathologist | | | | | At | Signature | + + + + --+ + | Glucose, | 87Comment: Performed by | 65 - 99 mg/dL | [facility] | | | POC | [facility] [address], | | SACRED | | | | [place] [address] | | HEART | | | |Performed by [facility] [address], [place] [address] | | MEDICAL | | | | | | CENTER | | | | | | LABORATORY | | | | | | CERNER | | + + + + --+ + + + | Specimen | + + | Blood specimen | | (specimen) | + + + + + + + | Performing | Address | City/State/Zipcode | Phone Number | | Organization | | | | + + + + + | [facility] | [address] | [place] [address] | | | [facility] | | | | | LABORATORY [facility] | | | | + + + + + Protime INR (11/22/2019 3:39 AM PDT) + + + + + + | Component | Value | Ref Range | Performed | Pathologist | | | | | At | Signature | + + + + + + | Prothrombin | 15.9 (H) | 12.0 - 14.2 sec | [facility] | | | Time | | | [facility]CR[facility] | | | | | | HEART | | | | | | MEDICAL | | | | | | CENTER | | | | | | LABORATORY | | | | | | CERN[facility] | | + + + + + + | INR | 1.3 (H)Comment: Usual | 0.9 - 1.1 | [facility] | | | | oral anticoagulant | | [facility]CRED | | | | range: 2.0 to 3.0 High | | HEART | | | | level oral | | MEDICAL | | | | anticoagulant range: 2.5 | | CENTER | | | | to 3.5 Direct Xa and | | LABORATORY | | | | IIa inhibitors may | | CERNER | | | | interfere with INR | | | | | | determinations.Performed | | | | | | by [facility] [address], | | | | | | [place] [address] | | | | + + + + + + + + | Specimen | + + | Blood specimen | | (specimen) | + + + + + + + | Performing | Address | City/State/Zipcode | Phone Number | | Organization | | | | + + + + + | [facility] | [address] | [place] [address] | | | [facility] | | | | | LABORATORY [facility] | | | | + + + + + Magnesium (11/22/2019 3:39 AM PDT) + + + +--------- ----+ + | Component | Value | Ref Range | Performe d | Pathologist | | | | | At | Signature | + + + +--------- ----+ + | Magnesium | 1.7Comment: Performed | 1.7 - 2.4 mg/dL | [facility] | | | | by [facility] [address], | | SACRED | | | | [place] [address] | | HEART | | | |Performed by [facility] [address], [place] [address] | | MEDICAL | | | | | | CENTER | | | | | | LABORATO RY | | | | | | CERNER | | + + + +--------- ----+ + + + | Specimen | + + | Blood specimen | | (specimen) | + + + + + + + | Performing | Address | City/State/Zipcode | Phone Number | | Organization | | | | + + + + + | [facility] | [address] | [place] [address] | | | [facility] | | | | | LABORATORY [facility] | | | | + + + + + CBC no Differential (11/22/2019 3:39 AM PDT) + + + +------- ------+ + | Component | Value | Ref Range | Perfor med | Pathologist | | | | | At | Signature | + + + +------- ------+ + | White Blood | 5.68 | 3.80 - 11.00 | [facility] | | | Cells | | K/uL | [facility] | | | | | | HEART | | | | | | MEDICA L | | | | | | CENTER | | | | | | LABORA TORY | | | | | | CERNER | | + + + +------- ------+ + | Red Blood | 4.02 | 3.70 - 5.10 | [facility] | | | Cells | | M/uL | [facility] | | | | | | HEART | | | | | | MEDICA L | | | | | | CENTER | | | | | | LABORA TORY | | | | | | CERNER | | + + + +------- ------+ + | Hemoglobin | 11.1 (L) | 11.3 - 15.5 | [facility] | | | | | g/dL | [facility] | | | | | | HEART | | | | | | MEDICA L | | | | | | CENTER | | | | | | LABORA TORY | | | | | | CERNER | | + + + +------- ------+ + | Hct | 35.9 | 34.0 - 46.0 % | [facility] | | | | | | [facility] | | | | | | HEART | | | | | | MEDICA L | | | | | | CENTER | | | | | | LABORA TORY | | | | | | CERNER | | + + + +------- ------+ + | MCV | 89.3 | 80.0 - 100.0 fL | [facility] | | | | | | [facility] | | | | | | HEART | | | | | | MEDICA L | | | | | | CENTER | | | | | | LABORA TORY | | | | | | CERNER | | + + + +------- ------+ + | MCH | 27.6 | 27.0 - 34.0 pg | [facility] | | | | | | [facility] | | | | | | HEART | | | | | | MEDICA L | | | | | | CENTER | | | | | | LABORA TORY | | | | | | CERNER | | + + + +------- ------+ + | MCHC | 30.9 (L) | 32.0 - 35.5 | [facility] | | | | | g/dL | [facility] | | | | | | HEART | | | | | | MEDICA L | | | | | | CENTER | | | | | | LABORA TORY | | | | | | CERNER | | + + + +------- ------+ + | RDW-CV | 14.4 | 11.0 - 15.5 % | [facility] | | | | | | [facility] | | | | | | HEART | | | | | | MEDICA L | | | | | | CENTER | | | | | | LABORA TORY | | | | | | CERNER | | + + + +------- ------+ + | Platelet | 172 | 150 - 400 K/uL | [facility] | | | Count | | | [facility] | | | | | | HEART | | | | | | MEDICA L | | | | | | CENTER | | | | | | LABORA TORY | | | | | | CERNER | | + + + +------- ------+ + | MPV | 10.6Comment: Performed | 9.3 - 12.7 fL | [facility] | | | | by [facility] [address], | | SACRED | | | | [place] [address] | | HEART | | | |Performed by [facility] [address], [place] [address] | | MEDICA L | | | | | | CENTER | | | | | | LABORA TORY | | | | | | CERNER | | + + + +------- ------+ + + + | Specimen | + + | Blood specimen | | (specimen) | + + + + + + + | Performing | Address | City/State/Zipcode | Phone Number | | Organization | | | | + + + + + | [facility] | [address] | [place] [address] | | | [facility] | | | | | LABORATORY [facility] | | | | + + + + + Comprehensive Metabolic Panel (11/22/2019 3:39 AM PDT) + + + + + + | Component | Value | Ref Range | Performed | Pathologist | | | | | At | Signature | + + + + + + | Na | 141 | 135 - 145 | [facility] | | | | | mmol/L | [facility] | | | | | | HEART | | | | | | MEDICAL | | | | | | CENTER | | | | | | LABORATORY | | | | | | CERNER | | + + + + + + | K | 3.5 | 3.5 - 5.0 | [facility] | | | | | mmol/L | [facility]CR[facility] | | | | | | HEART | | | | | | MEDICAL | | | | | | CENTER | | | | | | LABORATORY | | | | | | CERNER | | + + + + + + | Cl | 107 | 99 - 109 mmol/L | [facility] | | | | | | [facility] | | | | | | HEART | | | | | | MEDICAL | | | | | | CENTER | | | | | | LABORATORY | | | | | | CERNER | | + + + + + + | CO2 | 28 | 21 - 28 mmol/L | [facility] | | | | | | [facility] | | | | | | HEART | | | | | | MEDICAL | | | | | | CENTER | | | | | | LABORATORY | | | | | | CERNER | | + + + + + + | Calcium | 8.4 (L) | 8.5 - 10.2 | [facility] | | | | | mg/dL | [facility] | | | | | | HEART | | | | | | MEDICAL | | | | | | CENTER | | | | | | LABORATORY | | | | | | CERNER | | + + + + + + | Anion Gap | 6 | 5 - 16 mmol/L | [facility] | | | | | | [facility] | | | | | | HEART | | | | | | MEDICAL | | | | | | CENTER | | | | | | LABORATORY | | | | | | CERNER | | + + + + + + | Albumin | 3.3 | 3.3 - 4.8 g/dL | [facility] | | | | | | [facility] | | | | | | HEART | | | | | | MEDICAL | | | | | | CENTER | | | | | | LABORATORY | | | | | | CERNER | | + + + + + + | BUN | 10 | 8 - 25 mg/dL | [facility] | | | | | | [facility] | | | | | | HEART | | | | | | MEDICAL | | | | | | CENTER | | | | | | LABORATORY | | | | | | CERNER | | + + + + + + | Creatinine | 0.70 | 0.50 - 1.00 | [facility] | | | | | mg/dL | [facility] | | | | | | HEART | | | | | | MEDICAL | | | | | | CENTER | | | | | | LABORATORY | | | | | | CERNER | | + + + + + + | Glucose | 98 | 65 - 99 mg/dL | [facility] | | | | | | [facility] | | | | | | HEART | | | | | | MEDICAL | | | | | | CENTER | | | | | | LABORATORY | | | | | | CERNER | | + + + + + + | Total | 5.2 (L) | 6.1 - 7.8 g/dL | [facility] | | | Protein | | | [facility] | | | | | | HEART | | | | | | MEDICAL | | | | | | CENTER | | | | | | LABORATORY | | | | | | CERNER | | + + + + + + | Alkaline | 282 (H) | 35 - 115 U/L | [facility] | | | Phosphatase | | | [facility]CR[facility] | | | | | | HEART | | | | | | MEDICAL | | | | | | CENTER | | | | | | LABORATORY | | | | | | CERNER | | + + + + + + | ALT | 1,198 (H) | 10 - 65 U/L | [facility] | | | | | | [facility]CR[facility] | | | | | | HEART | | | | | | MEDICAL | | | | | | CENTER | | | | | | LABORATORY | | | | | | CERNER | | + + + + + + | AST | 491 (H) | 10 - 45 U/L | [facility] | | | | | | [facility] | | | | | | HEART | | | | | | MEDICAL | | | | | | CENTER | | | | | | LABORATORY | | | | | | CERNER | | + + + + + + | Bilirubin | 1.7 (H) | 0.2 - 1.1 mg/dL | [facility] | | | Total | | | [facility] | | | | | | HEART | | | | | | MEDICAL | | | | | | CENTER | | | | | | LABORATORY | | | | | | CERNER | | + + + + + + | Estimated | 82 (L)Comment: eGFR<60 | >=90 | [facility] | | | GFR | consistent with impaired | mL/min/1.73m2 | [facility] | | | | kidney function.For | | HEART | | | | [place], | | MEDICAL | | | | multiply the calculated | | CENTER | | | | GFR by 1.210Performed by | | LABORATORY | | | | [facility] [address], | | [place] | | | | [place] [address] | | | | + + + + + + + + | Specimen | + + | Blood specimen | | (specimen) | + + + + + + + | Performing | Address | City/State/Zipcode | Phone Number | | Organization | | | | + + + + + | [facility] | [address] | [place] [address] | | | [facility] | | | | | LABORATORY [facility] | | | | + + + + + POC Glucose (11/21/2019 8:53 PM PDT) + + + + + + | Component | Value | Ref Range | Performed | Pathologist | | | | | At | Signature | + + + + + + | Glucose, | 130 (H)Comment: | 65 - 99 mg/dL | [facility] | | | POC | Performed by [facility] [address] | | SACRED | | | | [address], [place] | | HEART | | | | [id number] | | MEDICAL | | | | | | CENTER | | | | | | LABORATORY | | | | | | CERNER | | + + + + + + + + | Specimen | + + | Blood specimen | | (specimen) | + + + + + + + | Performing | Address | City/State/Zipcode | Phone Number | | Organization | | | | + + + + + | [facility] | [address] | [place] [address] | | | HEART [facility] | | | | | LABORATORY CERNER | | | | + + + + + POC Glucose (11/21/2019 4:04 PM PDT) + + + + + + | Component | Value | Ref Range | Performed | Pathologist | | | | | At | Signature | + + + + + + | Glucose, | 117 (H)Comment: | 65 - 99 mg/dL | [facility] | | | POC | Performed by [facility] [address] | | SACRED | | | | [address] [place] | | HEART | | | | [address] | | MEDICAL | | | | | | CENTER | | | | | | LABORATORY | | | | | | CERNER | | + + + + + + + + | Specimen | + + | Blood specimen | | (specimen) | + + + + + + + | Performing | Address | City/State/Zipcode | Phone Number | | Organization | | | | + + + + + | [facility] | [address] | [place] [address] | | | [facility] | | | | | LABORATORY [facility] | | | | + + + + + ECHO Complete (11/21/2019 12:30 PM PDT) + +-------+ + + + | Component | Value | Ref Range | Performed | Pathologist | | | | | At | Signature | + +-------+ + + + | RA PRESSURE | 15 | mmHg | [facility] | | + +-------+ + + + | LVIDd | 5.75 | cm | [facility] | | + +-------+ + + + | FS | 14 | % | [facility] | | + +-------+ + + + | LA volume | 76 | mL | [facility] | | + +-------+ + + + | Ascending | 3.5 | cm | [facility] | | | aorta | | | | | + +-------+ + + + | AV mean | 4 | mmHg | [facility] | | | gradient | | | | | + +-------+ + + + | Aortic | 1.85 | cm2 | [facility] | | | Valve Area | | | | | | by | | | | | | Continuity | | | | | | VTI | | | | | + +-------+ + + + | PV peak | 1.51 | mmHg | [facility] | | | gradient | | | | | + +-------+ + + + | LVOT | 2 | cm | [facility] | | | diameter | | | | | + +-------+ + + + | LVOT peak | 96.3 | cm/s | [facility] | | | sathish | | | | | + +-------+ + + + | LVOT peak | 18.2 | cm | [facility] | | | VTI | | | | | + +-------+ + + + | AV peak sathish | 155 | cm/s | [facility] | | + +-------+ + + + | AV VTI | 30.9 | cm | [facility] | | + +-------+ + + + | MR max sathish | 569 | cm/s | [facility] | | + +-------+ + + + | AV peak | 9.61 | mmHg | [facility] | | | gradient | | | | | + +-------+ + + + | MV VTI | 204 | cm | [facility] | | + +-------+ + + + | LA Volume | 48 | mL/m2 | [facility] | | | Index | | | | | + +-------+ + + + | AV LVOT | 4 | mmHg | [facility] | | | Peak | | | | | | Gradient | | | | | + +-------+ + + + | AV LVOT | 2 | mmHg | [facility] | | | Mean | | | | | | Gradient | | | | | + +-------+ + + + | TR Peak | 39 | mmHg | [facility] | | | Gradient | | | | | + +-------+ + + + | TR Velocity | 312 | cm/s | [facility] | | + +-------+ + + + | PI Peak | 61.4 | cm/s | [facility] | | | Velocity | | | | | + +-------+ + + + | LV | 8.47 | cm | [facility] | | | Diastolic | | | | | | Length 4C | | | | | + +-------+ + + + | LV Systolic | 31.8 | cm2 | [facility] | | | Area PSAX | | | | | + +-------+ + + + | RV | 5.07 | cm | [facility] | | | Diastolic | | | | | | Basal | | | | | | Diameter | | | | | + +-------+ + + + | LV | 21 | % | [facility] | | | Thayer's | | | | | | Biplane EF | | | | | + +-------+ + + + | LV ED | 135 | ml | [facility] | | | Volume | | | | | | (Thayer's) | | | | | + +-------+ + + + | LV ED | 86 | ml/m2 | [facility] | | | Volume | | | | | | Index | | | | | + +-------+ + + + | LV ES | 107 | ml | [facility] | | | Volume | | | | | + +-------+ + + + | LVOT Mean | 59.7 | cm/s | [facility] | | | Velocity | | | | | + +-------+ + + + | RVSP | 54 | mmHg | [facility] | | | Estimated | | | | | + +-------+ + + + | MV E' | 8.06 | cm/s | [facility] | | | Lateral | | | | | | Velocity | | | | | + +-------+ + + + | MV E' | 2.43 | cm/s | [facility] | | | Septal | | | | | | Velocity | | | | | + +-------+ + + + | MV | 194 | msec | [facility] | | | Deceleratio | | | | | | n Time | | | | | + +-------+ + + + | MV E/A | 2.06 | | [facility] | | | Ratio | | | | | + +-------+ + + + | MV Peak | 68 | cm/s | [facility] | | | A-Wave | | | | | + +-------+ + + + | MV Peak | 140 | cm/s | [facility] | | | E-Wave | | | | | + +-------+ + + + | AV Mean | 95.2 | cm/s | [facility] | | | Velocity | | | | | + +-------+ + + + | LA Area | 24.4 | cm2 | [facility] | | + +-------+ + + + | LA Systolic | 23.71 | mmHg | [facility] | | | Pressure | | | | | + +-------+ + + + | MV E/E | 57.61 | | [facility] | | | SEPTAL | | | | | + +-------+ + + + | MV E/E | 17.37 | | [facility] | | | LATERAL | | | | | + +-------+ + + + | LA Major | 0.309 | cm | [facility] | | + +-------+ + + + | LV ES | 68 | ml/m2 | [facility] | | | Volume | | | | | | Index | | | | | + +-------+ + + + | LV Area | 37.3 | cm2 | [facility] | | | Diastolic | | | | | + +-------+ + + + | Vitals | 62 | | [facility] | | | Heart Rate | | | | | | Rest | | | | | + +-------+ + + + | Vitals BP | 144 | | [facility] | | | Systolic | | | | | + +-------+ + + + | Vitals BP | 82 | | [facility] | | | Diastolic | | | | | + +-------+ + + + | Vitals | 142.0 | | [facility] | | | Height | | | | | + +-------+ + + + | Vitals | 68.30 | | [facility] | | | Weight | | | | | + +-------+ + + + | Vitals BSA | 1.57 | | [facility] | | + +-------+ + + + | Vitals BMI | 33.63 | | [facility] | | + +-------+ + + + | Aortic Root | 2.8 | cm | [facility] | | | Diameter | | | | | + +-------+ + + + | IVS | 1.17 | cm | [facility] | | | Diastolic | | | | | | Thickness | | | | | | MM | | | | | + +-------+ + + + | LVPW | 1.09 | cm | [facility] | | | Diastolic | | | | | | Thickness | | | | | | MM | | | | | + +-------+ + + + | LV Systolic | 4.93 | cm | [facility] | | | Diameter | | | | | | MM | | | | | + +-------+ + + + | LVEF-TTE | 20 | % | [facility] | | | TRANSTHORAC | | | | | | IC ECHO | | | | | + +-------+ + + + + + | Specimen | + + | | + + + + + | Narrative | Performed At | + + + | Severe, global | [facility] | | LV dysfunction with estimated EF 20%.Thickened mitral valve leaflets | | | with moderate to severe central MR.Aortic sclerosis with trace | | | AI.Moderate TR with moderate pulmonary hypertension with RVSP in the | | | mid 50s.No pericardial effusion.Compared with a report from a previous | | | study from 2015, EF is now lower. | | + + + + +---------+ + + | Performing | Address | City/State/Zipcode | Phone Number | | Organization | | | | + +---------+ + + | [facility] | | | | + +---------+ + + POC Glucose (11/21/2019 12:26 PM PDT) + + + + + + | Component | Value | Ref Range | Performed | Pathologist | | | | | At | Signature | + + + + + + | Glucose, | 103 (H)Comment: | 65 - 99 mg/dL | [facility] | | | POC | Performed by [facility] [address] | | SACRED | | | | [address] [place], [place] | | HEART | | | | [address] | | MEDICAL | | | | | | CENTER | | | | | | LABORATORY | | | | | | [place] | | + + + + + + + + | Specimen | + + | Blood specimen | | (specimen) | + + + + + + + | Performing | Address | City/State/Zipcode | Phone Number | | Organization | | | | + + + + + | [facility] | [address] | [place] [address] | | | [facility] | | | | | LABORATORY [facility] | | | | + + + + + POC Glucose (11/21/2019 6:42 AM PDT) + + + + --+ + | Component | Value | Ref Range | Performed | Pathologist | | | | | At | Signature | + + + + --+ + | Glucose, | 86Comment: Performed by | 65 - 99 mg/dL | [facility] | | | POC | [facility] [address], | | SACRED | | | | [place] [address] | | HEART | | | |Performed by [facility] [address], [place] [address] | | MEDICAL | | | | | | CENTER | | | | | | LABORATORY | | | | | | CERNER | | + + + + --+ + + + | Specimen | + + | Blood specimen | | (specimen) | + + + + + + + | Performing | Address | City/State/Zipcode | Phone Number | | Organization | | | | + + + + + | [facility] | [address] | [place] | | | [facility] | | | | | LABORATORY [facility] | | | | + + + + + Phosphorus (11/21/2019 4:25 AM PDT) + + + +-------- -----+ + | Component | Value | Ref Range | Perform ed | Pathologist | | | | | At | Signature | + + + +-------- -----+ + | Phosphorus | 2.7Comment: Performed | 2.6 - 4.4 mg/dL | [facility] | | | | by [facility] [address], | | SACRED | | | | [place] | | HEART | | | |Performed by [facility] [address], [place], [place] | | MEDICAL | | | | | | CENTER | | | | | | LABORAT ORY | | | | | | CERNER | | + + + +-------- -----+ + + + | Specimen | + + | Blood specimen | | (specimen) | + + + + + + + | Performing | Address | City/State/Zipcode | Phone Number | | Organization | | | | + + + + + | [facility] | [address] | [place] [address] | | | [facility] | | | | | LABORATORY [place] | | | | + + + + + CBC no Differential (11/21/2019 4:25 AM PDT) + + + +------- ------+ + | Component | Value | Ref Range | Perfor med | Pathologist | | | | | At | Signature | + + + +------- ------+ + | White Blood | 6.70 | 3.80 - 11.00 | [facility] | | | Cells | | K/uL | [facility] | | | | | | HEART | | | | | | MEDICA L | | | | | | CENTER | | | | | | LABORA TORY | | | | | | [facility] | | + + + +------- ------+ + | Red Blood | 3.75 | 3.70 - 5.10 | [facility] | | | Cells | | M/uL | [facility] | | | | | | HEART | | | | | | MEDICA L | | | | | | CENTER | | | | | | LABORA TORY | | | | | | [facility] | | + + + +------- ------+ + | Hemoglobin | 11.0 (L) | 11.3 - 15.5 | [facility] | | | | | g/dL | [facility] | | | | | | HEART | | | | | | MEDICA L | | | | | | CENTER | | | | | | LABORA TORY | | | | | | [facility] | | + + + +------- ------+ + | Hct | 32.3 (L) | 34.0 - 46.0 % | [facility] | | | | | | [facility] | | | | | | HEART | | | | | | MEDICA L | | | | | | CENTER | | | | | | LABORA TORY | | | | | | [facility] | | + + + +------- ------+ + | MCV | 86.1 | 80.0 - 100.0 fL | [facility] | | | | | | [facility] | | | | | | HEART | | | | | | MEDICA L | | | | | | CENTER | | | | | | LABORA TORY | | | | | | [place] | | + + + +------- ------+ + | MCH | 29.3 | 27.0 - 34.0 pg | [facility] | | | | | | [facility] | | | | | | HEART | | | | | | MEDICA L | | | | | | CENTER | | | | | | LABORA TORY | | | | | | [facility] | | + + + +------- ------+ + | MCHC | 34.1 | 32.0 - 35.5 | [facility] | | | | | g/dL | [facility] | | | | | | HEART | | | | | | MEDICA L | | | | | | CENTER | | | | | | LABORA TORY | | | | | | [place] | | + + + +------- ------+ + | RDW-CV | 14.4 | 11.0 - 15.5 % | [facility] | | | | | | [facility] | | | | | | HEART | | | | | | MEDICA L | | | | | | CENTER | | | | | | LABORA TORY | | | | | | [place] | | + + + +------- ------+ + | Platelet | 158 | 150 - 400 K/uL | [facility] | | | Count | | | [facility] | | | | | | HEART | | | | | | MEDICA L | | | | | | CENTER | | | | | | LABORA TORY | | | | | | [facility] | | + + + +------- ------+ + | MPV | 10.6Comment: Performed | 9.3 - 12.7 fL | [facility] | | | | by [facility] [address], | | SACRED | | | | [place], [place] | | HEART | | | |Performed by [facility] [address], [place], [place] | | MEDICA L | | | | | | CENTER | | | | | | LABORA TORY | | | | | | CERNER | | + + + +------- ------+ + + + | Specimen | + + | Blood specimen | | (specimen) | + + + + + + + | Performing | Address | City/State/Zipcode | Phone Number | | Organization | | | | + + + + + | [facility] | [address] | [place], [place] | | | [facility] | | | | | LABORATORY [facility] | | | | + + + + + Magnesium (11/21/2019 4:25 AM PDT) + + + +--------- ----+ + | Component | Value | Ref Range | Performe d | Pathologist | | | | | At | Signature | + + + +--------- ----+ + | Magnesium | 1.8Comment: Performed | 1.7 - 2.4 mg/dL | [facility] | | | | by [facility] [address], | | [facility]CRED | | | | [place] [address] | | HEART | | | |Performed by [facility] [address], [place] [address] | | MEDICAL | | | | | | CENTER | | | | | | LABORATO [facility] | | | | | | [facility] | | + + + +--------- ----+ + + + | Specimen | + + | Blood specimen | | (specimen) | + + + + + + + | Performing | Address | City/State/Zipcode | Phone Number | | Organization | | | | + + + + + | [facility] | [address] | [place] [address] | | | [facility] | | | | | [facility] | | | | + + + + + Comprehensive Metabolic Panel (11/21/2019 4:25 AM PDT) + + + + + + | Component | Value | Ref Range | Performed | Pathologist | | | | | At | Signature | + + + + + + | Na | 143 | 135 - 145 | [facility] | | | | | mmol/L | [facility] | | | | | [facility] | | | | | | [facility] | | | | | | CENTER | | | | | | LABORATORY | | | | | | [facility] | | + + + + + + | K | 3.4 (L) | 3.5 - 5.0 | [facility] | | | | | mmol/L | [facility] | | | | | | [facility] | | | | | | MED[facility] | | | | | | CENTER | | | | | | LABORATORY | | | | | | [facility] | | + + + + + + | Cl | 105 | 99 - 109 mmol/L | [facility] | | | | | [facility] | | | | | | [facility] | | | | | | LABORAT[facility] | | | | | | [facility] | | + + + + + + | CO2 | 31 (H) | 21 - 28 mmol/L | [facility] | | | | | | [facility] | | | | | | [facility] | | | | | | LABORATORY | | | | | | [facility] | | + + + + + + | Calcium | 8.3 (L) | 8.5 - 10.2 | [facility] | | | | | mg/dL | [facility] | | | | | | [facility] | | | | | | [facility] | | | | | | CENTER | | | | | | LABORATORY | | | | | | [facility] | | + + + + + + | Anion Gap | 7 | 5 - 16 mmol/L | [facility] | | | | | [facility] | | | | | | [facility] | | | | | | LAB[facility]AT[facility] | | | | | | [facility] | | + + + + + + | Albumin | 3.1 (L) | 3.3 - 4.8 g/dL | [facility] | | | | | [facility] | | | | | | [facility] | | | | | | LAB[facility]AT[facility] | | | | | | [facility] | | + + + + + + | BUN | 20 | 8 - 25 mg/dL | [facility] | | | | | | [facility] | | | | | | [facility] | | | | | | LABORAT[facility] | | | | | | [facility] | | + + + + + + | Creatinine | 0.91 | 0.50 - 1.00 | [facility] | | | | | mg/dL | [facility] | | | | | | [facility] | | | | | | [facility] | | | | | | CENTER | | | | | | LABORATORY | | | | | | [facility] | | + + + + + + | Glucose | 89 | 65 - 99 mg/dL | [facility] | | | | | | [facility] | | | | | | [facility] | | | | | | LAB[facility]AT[facility] | | | | | | [facility] | | + + + + + + | Total | 4.8 (L) | 6.1 - 7.8 g/dL | [facility] | | | Protein | | [facility] | | | | | | [facility] | | | | | | [facility] | | | | | | [facility] | | | | | | LABORATORY | | | | | | [facility] | | + + + + + + | Alkaline | 191 (H) | 35 - 115 U/L | [facility] | | | Phosphatase | | | [facility] | | | | | | [facility] | | | | | | [facility] | | | | | | [facility] | | | | | | LABORATORY | | | | | | [facility] | | + + + + + + | ALT | 1,697 (H) | 10 - 65 U/L | [facility] | | | | | | [facility] | | | | | | [facility] | | | | | | LAB[facility]AT[facility] | | | | | | [facility] | | + + + + + + | AST | 1,165 (H) | 10 - 45 U/L | [facility] | | | | | | [facility] | | | | | | [facility] | | | | | | LABORATORY | | | | | | [facility] | | + + + + + + | Bilirubin | 1.4 (H) | 0.2 - 1.1 mg/dL | [facility] | | | Total | | | [facility] | | | | | | HEART | | | | | | MEDICAL | | | | | | CENTER | | | | | | LABORATORY | | | | | | [facility] | | + + + + + + | Estimated | 59 (L)Comment: eGFR<60 | >=90 | [facility] | | | GFR | consistent with impaired | mL/min/1.73m2 | [facility] | | | | kidney function.For | | HEART | | | | Americans, | | MEDICAL | | | | multiply the calculated | | CENTER | | | | GFR by 1.210Performed by | | LABORATORY | | | | [facility] [address], | | [place] | | | | [place] [address] | | | | + + + + + + + + | Specimen | + + | Blood specimen | | (specimen) | + + + + + + + | Performing | Address | City/State/[facility] | Phone Number | | Organization | | | | + + + + + | [facility] | [address] | [place] [address] | | | [facility] | | | | | LABORATORY [facility] | | | | + + + + + Protime INR (11/21/2019 4:25 AM PDT) + + + + + + | Component | Value | Ref Range | Performed | Pathologist | | | | | At | Signature | + + + + + + | Prothrombin | 18.7 (H) | 12.0 - 14.2 sec | [facility] | | | Time | | | [facility] | | | | | | HEART | | | | | | MEDICAL | | | | | | CENTER | | | | | | LABORATORY | | | | | | [place] | | + + + + + + | INR | 1.6 (H)Comment: Usual | 0.9 - 1.1 | [facility] | | | | oral anticoagulant | | [facility] | | | | range: 2.0 to 3.0 High | | HEART | | | | level oral | | MEDICAL | | | | anticoagulant range: 2.5 | | CENTER | | | | to 3.5 Direct Xa and | | LABORATORY | | | | IIa inhibitors may | | [facility] | | | | interfere with INR | | | | | | determinations.Performed | | | | | | by [facility] [address], | | | | | | [place] [address] | | | | + + + + + + + + | Specimen | + + | Blood specimen | | (specimen) | + + + + + + + | Performing | Address | City/State/Zipcode | Phone Number | | Organization | | | | + + + + + | [facility] | [address] | [place] [address] | | | [facility] | | | | | LABORATORY [facility] | | | | + + + + + POC Glucose (11/20/2019 9:01 PM PDT) + + + + + + | Component | Value | Ref Range | Performed | Pathologist | | | | | At | Signature | + + + + + + | Glucose, | 136 (H)Comment: | 65 - 99 mg/dL | [facility] | | | POC | Performed by [facility] [address] | | SACRED | | | | [address] [place] | | HEART | | | | [address] | | MEDICAL | | | | | | CENTER | | | | | | LABORATORY | | | | | | [facility] | | + + + + + + + + | Specimen | + + | Blood specimen | | (specimen) | + + + + + + + | Performing | Address | City/State/Zipcode | Phone Number | | Organization | | | | + + + + + | [facility] | [address] | [place] [address] | | | [facility] | | | | | LABORATORY [facility] | | | | + + + + + POC Glucose (11/20/2019 5:28 PM PDT) + + + + --+ + | Component | Value | Ref Range | Performed | Pathologist | | | | | At | Signature | + + + + --+ + | Glucose, | 96Comment: Performed by | 65 - 99 mg/dL | [facility] | | | POC | [facility] [address], | | SACRED | | | | [place] [address] | | HEART | | | |Performed by [facility] [address], [place] [address] | | MEDICAL | | | | | | CENTER | | | | | | LABORATORY | | | | | | [facility] | | + + + + --+ + + + | Specimen | + + | Blood specimen | | (specimen) | + + + + + + + | Performing | Address | City/State/Zipcode | Phone Number | | Organization | | | | + + + + + | [facility] | [address] | [place] | | | [facility] | | | | | LABORATORY [place] | | | | + + + + + POC Glucose (11/20/2019 12:28 PM PDT) + + + + --+ + | Component | Value | Ref Range | Performed | Pathologist | | | | | At | Signature | + + + + --+ + | Glucose, | 92Comment: Performed by | 65 - 99 mg/dL | [facility] | | | POC | [facility] [address], | | SACRED | | | | [place] | | HEART | | | |Performed by [facility] [address], [place] | | MEDICAL | | | | | | CENTER | | | | | | LABORATORY | | | | | | [place] | | + + + + --+ + + + | Specimen | + + | Blood specimen | | (specimen) | + + + + + + + | Performing | Address | City/State/Zipcode | Phone Number | | Organization | | | | + + + + + | [facility] | [address] | [place] [address] | | | [facility] | | | | | LABORATORY [place] | | | | + + + + + POC Glucose (11/20/2019 7:00 AM PDT) + + + + + + | Component | Value | Ref Range | Performed | Pathologist | | | | | At | Signature | + + + + + + | Glucose, | 116 (H)Comment: | 65 - 99 mg/dL | [facility] | | | POC | Performed by [facility] [address] | | SACRED | | | | [address] [place] | | HEART | | | | [address] | | MEDICAL | | | | | | CENTER | | | | | | LABORATORY | | | | | | [place] | | + + + + + + + + | Specimen | + + | Blood specimen | | (specimen) | + + + + + + + | Performing | Address | City/State/Zipcode | Phone Number | | Organization | | | | + + + + + | [facility] | [address] | [place] [address] | | | [facility] | | | | | LABORATORY [facility] | | | | + + + + + Lactic Acid (11/20/2019 4:13 AM PDT) + + + + + + | Component | Value | Ref Range | Performed | Pathologist | | | | | At | Signature | + + + + + + | Lactate, | 1.7Comment: Performed | 0.5 - 2.2 | [facility] | | | Venous | by [facility] [address], | mmol/L | [facility]ED | | | | [place] | | HEART | | | |Performed by [facility] [address], [place], [place] | | MEDICAL | | | | | | CENTER | | | | | | LABORATORY | | | | | | [place] | | + + + + + + + + | Specimen | + + | Blood specimen | | (specimen) | + + + + + + + | Performing | Address | City/State/Zipcode | Phone Number | | Organization | | | | + + + + + | [facility] | [address] | [place], [place] | | | [facility] | | | | | LABORATORY [place] | | | | + + + + + Comprehensive Metabolic Panel (11/20/2019 4:13 AM PDT) + + + + + + | Component | Value | Ref Range | Performed | Pathologist | | | | | At | Signature | + + + + + + | Na | 132 (L) | 135 - 145 | [facility] | | | | | mmol/L | [facility] | | | | | | HEART | | | | | | MEDICAL | | | | | | CENTER | | | | | | LABORATORY | | | | | | [facility] | | + + + + + + | K | 3.6 | 3.5 - 5.0 | [facility] | | | | | mmol/L | [facility]CRED | | | | | | HEART | | | | | | MEDICAL | | | | | | CENTER | | | | | | LABORATORY | | | | | | [facility] | | + + + + + + | Cl | 98 (L) | 99 - 109 mmol/L | [facility] | | | | | | [facility] | | | | | | HEART | | | | | | MEDICAL | | | | | | CENTER | | | | | | LABORATORY | | | | | | [place] | | + + + + + + | CO2 | 25 | 21 - 28 mmol/L | [facility] | | | | | | [facility] | | | | | | HEART | | | | | | MEDICAL | | | | | | CENTER | | | | | | LABORATORY | | | | | | [place] | | + + + + + + | Calcium | 8.2 (L) | 8.5 - 10.2 | [facility] | | | | | mg/dL | [facility] | | | | | | HEART | | | | | | MEDICAL | | | | | | CENTER | | | | | | LABORATORY | | | | | | [place] | | + + + + + + | Anion Gap | 9 | 5 - 16 mmol/L | [facility] | | | | | | [facility] | | | | | | HEART | | | | | | MEDICAL | | | | | | CENTER | | | | | | LABORATORY | | | | | | [place] | | + + + + + + | Albumin | 3.4 | 3.3 - 4.8 g/dL | [facility] | | | | | | [facility] | | | | | | HEART | | | | | | MEDICAL | | | | | | CENTER | | | | | | LABORATORY | | | | | | [place] | | + + + + + + | BUN | 37 (H) | 8 - 25 mg/dL | [facility] | | | | | | [facility] | | | | | | HEART | | | | | | MEDICAL | | | | | | CENTER | | | | | | LABORATORY | | | | | | [place] | | + + + + + + | Creatinine | 1.62 (H) | 0.50 - 1.00 | [facility] | | | | | mg/dL | [facility] | | | | | | HEART | | | | | | MEDICAL | | | | | | CENTER | | | | | | LABORATORY | | | | | | [place] | | + + + + + + | Glucose | 107 (H) | 65 - 99 mg/dL | [facility] | | | | | | [facility] | | | | | | HEART | | | | | | MEDICAL | | | | | | CENTER | | | | | | LABORATORY | | | | | | [place] | | + + + + + + | Total | 5.0 (L) | 6.1 - 7.8 g/dL | [facility] | | | Protein | | | [facility] | | | | | | HEART | | | | | | MEDICAL | | | | | | CENTER | | | | | | LABORATORY | | | | | | [facility] | | + + + + + + | Alkaline | 213 (H) | 35 - 115 U/L | [facility] | | | Phosphatase | | | [facility]CRED | | | | | | HEART | | | | | | MEDICAL | | | | | | CENTER | | | | | | LABORATORY | | | | | | [place] | | + + + + + + | ALT | 2,925 (H) | 10 - 65 U/L | [facility] | | | | | | [facility] | | | | | | HEART | | | | | | MEDICAL | | | | | | CENTER | | | | | | LABORATORY | | | | | | [facility] | | + + + + + + | AST | 4,869 (H) | 10 - 45 U/L | [facility] | | | | | | [facility] | | | | | | HEART | | | | | | MEDICAL | | | | | | CENTER | | | | | | LABORATORY | | | | | | [place] | | + + + + + + | Bilirubin | 1.7 (H) | 0.2 - 1.1 mg/dL | [facility] | | | Total | | | [facility] | | | | | | HEART | | | | | | MEDICAL | | | | | | CENTER | | | | | | LABORATORY | | | | | | [place] | | + + + + + + | Estimated | 30 (L)Comment: eGFR<60 | >=90 | [facility] | | | GFR | consistent with impaired | mL/min/1.73m2 | SACRED | | | | kidney function.For | | HEART | | | | Americans, | | MEDICAL | | | | multiply the calculated | | CENTER | | | | GFR by 1.210Performed by | | LABORATORY | | | | [facility] [address], | | [place] | | | | [place] [address] | | | | + + + + + + + + | Specimen | + + | Blood specimen | | (specimen) | + + + + + + + | Performing | Address | City/State/Zipcode | Phone Number | | Organization | | | | + + + + + | [facility] | [address] | [place] [address] | | | [facility] | | | | | LABORATORY [place] | | | | + + + + + CBC with Differential (11/20/2019 4:13 AM PDT) + + + + + + | Component | Value | Ref Range | Performed | Pathologist | | | | | At | Signature | + + + + + + | White Blood | 6.05 | 3.80 - 11.00 | [facility] | | | Cells | | K/uL | [facility] | | | | | | HEART | | | | | | MEDICAL | | | | | | CENTER | | | | | | LABORATORY | | | | | | [place] | | + + + + + + | Red Blood | 3.68 (L) | 3.70 - 5.10 | [facility] | | | Cells | | M/uL | [facility] | | | | | | HEART | | | | | | MEDICAL | | | | | | CENTER | | | | | | LABORATORY | | | | | | [place] | | + + + + + + | Hemoglobin | 10.4 (L) | 11.3 - 15.5 | [facility] | | | | | g/dL | [facility] | | | | | | HEART | | | | | | MEDICAL | | | | | | CENTER | | | | | | LABORATORY | | | | | | [place] | | + + + + + + | Hct | 31.2 (L) | 34.0 - 46.0 % | [facility] | | | | | | [facility] | | | | | | HEART | | | | | | MEDICAL | | | | | | CENTER | | | | | | LABORATORY | | | | | | [place] | | + + + + + + | MCV | 84.8 | 80.0 - 100.0 fL | [facility] | | | | | | [facility]CRED | | | | | | HEART | | | | | | MEDICAL | | | | | | CENTER | | | | | | LABORATORY | | | | | | [place] | | + + + + + + | MCH | 28.3 | 27.0 - 34.0 pg | [facility] | | | | | | [facility] | | | | | | HEART | | | | | | MEDICAL | | | | | | CENTER | | | | | | LABORATORY | | | | | | [place] | | + + + + + + | MCHC | 33.3 | 32.0 - 35.5 | [facility] | | | | | g/dL | [facility]CR[facility] | | | | | | HEART | | | | | | MEDICAL | | | | | | CENTER | | | | | | LABORATORY | | | | | | [place] | | + + + + + + | RDW-CV | 13.9 | 11.0 - 15.5 % | [facility] | | | | | | [facility]CR[facility] | | | | | | HEART | | | | | | MEDICAL | | | | | | CENTER | | | | | | LABORATORY | | | | | | [place] | | + + + + + + | Platelet | 133 (L) | 150 - 400 K/uL | [facility] | | | Count | | | SACRED | | | | | | HEART | | | | | | MEDICAL | | | | | | CENTER | | | | | | LABORATORY | | | | | | [place] | | + + + + + + | MPV | 11.4 | 9.3 - 12.7 fL | [facility] | | | | | | [facility]CR[facility] | | | | | | HEART | | | | | | MEDICAL | | | | | | CENTER | | | | | | LABORATORY | | | | | | [place] | | + + + + + + | % | 67.8 | 40.0 - 75.0 % | [facility] | | | Neutrophils | | | SACRED | | | | | | HEART | | | | | | MEDICAL | | | | | | CENTER | | | | | | LABORATORY | | | | | | [facility] | | + + + + + + | % | 20.7 | 15.0 - 48.0 % | [facility] | | | Lymphocytes | | | SACRED | | | | | | HEART | | | | | | MEDICAL | | | | | | CENTER | | | | | | LABORATORY | | | | | | [place] | | + + + + + + | % Monocytes | 8.6 | 0.0 - 12.0 % | [facility] | | | | | | [facility]CR[facility] | | | | | | HEART | | | | | | MEDICAL | | | | | | CENTER | | | | | | LABORATORY | | | | | | [place] | | + + + + + + | % | 0.7 | 0.0 - 7.0 % | [facility] | | | Eosinophils | | | [facility]CR[facility] | | | | | | HEART | | | | | | MEDICAL | | | | | | CENTER | | | | | | LABORATORY | | | | | | [place] | | + + + + + + | % Basophils | 0.7 | 0.0 - 2.0 % | [facility] | | | | | | [facility]CR[facility] | | | | | | HEART | | | | | | MEDICAL | | | | | | CENTER | | | | | | LABORATORY | | | | | | [place] | | + + + + + + | % Immature | 1.5 (H)Comment: | 0.0 - 1.0 % | [facility] | | | Granulocyte | Immature granulocytes | | SACRED | | | s | are left-shifted | | HEART | | | | granulocytes and do not | | MEDICAL | | | | equal blasts. They are | | CENTER | | | | composed of | | LABORATORY | | | | metamyelocytes, | | [facility] | | | | myelocytes, and | | | | | | promyelocytes. Their | | | | | | presence can be seen in | | | | | | infection, inflammation, | | | | | | certain medication's | | | | | | effect, or other bone | | | | | | marrow stimuli. | | | | | | Occasionally, | | | | | | persistent increase in | | | | | | immature granulocytes | | | | | | may be part of myeloid | | | | | | neoplastic process. | | | | | | Correlation with | | | | | | clinical findings is | | | | | | recommended for complete | | | | | | interpretation of this | | | | | | parameter. Please also | | | | | | note that peripheral | | | | | | blood with immature | | | | | | granulocytes >5% will be | | | | | | manually reviewed by | | | | | | lab personnel and/or | | | | | | pathologists. | | | | + + + + + + | Absolute | 4.10 | 1.90 - 7.40 | [facility] | | | Neutrophils | | K/uL | SACRED | | | | | | HEART | | | | | | MEDICAL | | | | | | CENTER | | | | | | LABORATORY | | | | | | [place] | | + + + + + + | Absolute | 1.25 | 1.00 - 3.90 | [facility] | | | Lymphocytes | | K/uL | SACRED | | | | | | HEART | | | | | | MEDICAL | | | | | | CENTER | | | | | | LABORATORY | | | | | | [place] | | + + + + + + | Absolute | 0.52 | 0.00 - 0.80 | [facility] | | | Monocytes | | K/uL | [facility] | | | | | | HEART | | | | | | MEDICAL | | | | | | CENTER | | | | | | LABORATORY | | | | | | [place] | | + + + + + + | Absolute | 0.04 | 0.00 - 0.50 | [facility] | | | Eosinophils | | K/uL | [facility] | | | | | | HEART | | | | | | MEDICAL | | | | | | CENTER | | | | | | LABORATORY | | | | | | [place] | | + + + + + + | Absolute | 0.04 | 0.00 - 0.10 | [facility] | | | Basophils | | K/uL | [facility] | | | | | | HEART | | | | | | MEDICAL | | | | | | CENTER | | | | | | LABORATORY | | | | | | [place] | | + + + + + + | Absolute | 0.09 (H)Comment: | 0.00 - 0.03 | [facility] | | | Immature | Performed by [facility] | K/uL | SACRED | | | Granulocyte | [place] | | HEART | | | s | [phone] | | MEDICAL | | | | | | CENTER | | | | | | LABORATORY | | | | | | [place] | | + + + + + + + + | Specimen | + + | Blood specimen | | (specimen) | + + + + + + + | Performing | Address | City/State/Zipcode | Phone Number | | Organization | | | | + + + + + | [facility] | [address] | [place] [address] | | | HEART [facility] | | | | | LABORATORY [place] | | | | + + + + + POC Glucose (11/19/2019 8:52 PM PDT) + + + + + + | Component | Value | Ref Range | Performed | Pathologist | | | | | At | Signature | + + + + + + | Glucose, | 138 (H)Comment: | 65 - 99 mg/dL | [facility] | | | POC | Performed by [facility] [address] | | SACRED | | | | [address] [place], [place] | | HEART | | | | [address] | | MEDICAL | | | | | | CENTER | | | | | | LABORATORY | | | | | | [place] | | + + + + + + + + | Specimen | + + | Blood specimen | | (specimen) | + + + + + + + | Performing | Address | City/State/Zipcode | Phone Number | | Organization | | | | + + + + + | [facility] | [address] | [place] [address] | | | [facility] | | | | | LABORATORY [place] | | | | + + + + + Lactic Acid (11/19/2019 7:49 PM PDT) + + + + + + | Component | Value | Ref Range | Performed | Pathologist | | | | | At | Signature | + + + + + + | Lactate, | 3.3 (H)Comment: | 0.5 - 2.2 | [facility] | | | Venous | Performed by [facility] [address] | mmol/L | SACRED | | | | [address], [place] | | HEART | | | | [address] | | MEDICAL | | | | | | CENTER | | | | | | LABORATORY | | | | | | [place] | | + + + + + + + + | Specimen | + + | Blood specimen | | (specimen) | + + + + + + + | Performing | Address | City/State/Zipcode | Phone Number | | Organization | | | | + + + + + | [facility] | [address] | [place] [address] | | | [facility] | | | | | LABORATORY [place] | | | | + + + + + POC Glucose (11/19/2019 5:21 PM PDT) + + + + + + | Component | Value | Ref Range | Performed | Pathologist | | | | | At | Signature | + + + + + + | Glucose, | 131 (H)Comment: | 65 - 99 mg/dL | [facility] | | | POC | Performed by [facility] [address] | | SACRED | | | | [address] [place], [place] | | HEART | | | | [address] | | MEDICAL | | | | | | CENTER | | | | | | LABORATORY | | | | | | [place] | | + + + + + + + + | Specimen | + + | Blood specimen | | (specimen) | + + + + + + + | Performing | Address | City/State/Zipcode | Phone Number | | Organization | | | | + + + + + | [facility] | [address] | [place] [address] | | | [facility] | | | | | LABORATORY [place] | | | | + + + + + Lactic Acid (11/19/2019 3:05 PM PDT) + + + + + + | Component | Value | Ref Range | Performed | Pathologist | | | | | At | Signature | + + + + + + | Lactate, | 4.3 (AA)Comment: | 0.5 - 2.2 | [facility] | | | Venous | Critical Lactate called | mmol/L | SACRED | | | | to and read back by | | HEART | | | | Marcia Duvall /Arleen at | | MEDICAL | | | | 11/19/2019 16:28:44 PDT | | CENTER | | | | by [email or web address].Performed by [facility] | | LABORATORY | | | | [address], [place], | | [place] | | | | [place] [address] | | | | + + + + + + + + | Specimen | + + | Blood specimen | | (specimen) | + + + + + + + | Performing | Address | City/State/Zipcode | Phone Number | | Organization | | | | + + + + + | [facility] | [address] | [place] [address] | | | [facility] | | | | | LABORATORY [place] | | | | + + + + + Hepatitis Panel, Acute (11/19/2019 1:23 PM PDT) + + + + + + | Component | Value | Ref Range | Performed | Pathologist | | | | | At | Signature | + + + + + + | HEP A IGM | Negative | Negative | [facility] | | | | | | [facility]CR[facility] | | | | | | HEART | | | | | | MEDICAL | | | | | | CENTER | | | | | | LABORATORY | | | | | | [place] | | + + + + + + | Hepatitis B | Negative | Negative | [facility] | | | Surface Ag | | | SACRED | | | | | | HEART | | | | | | MEDICAL | | | | | | CENTER | | | | | | LABORATORY | | | | | | [place] | | + + + + + + | HEP B CORE | Negative | Negative | [facility] | | | IgM | | | [facility]CRED | | | | | | HEART | | | | | | MEDICAL | | | | | | CENTER | | | | | | LABORATORY | | | | | | [place] | | + + + + + + | Hepatitis C | <0.1Comment: | 0.0 - 0.9 s/co | [facility] | | | Ab | | ratio | [facility] | | | | | | HEART | | | | Negative: < 0.8 | | MEDICAL | | | | | | CENTER | | | | | | LABORATORY | | | | Indeterminate: 0.8 - 0.9 | | [place] | | | | | | | | | | | | | | | | Positive: > 0.9 | | | | | | The [facility] recommends | | | | | | that a positive HCV | | | | | | antibody result be | | | | | | followed up with a HCV | | | | | | Nucleic Acid | | | | | | Amplification test | | | | | | ([id number]).Performed At: | | | | | | [address] [facility] [address] | | | | | | [address] | | | | | | [place], [place] | | | | | | [id number] | | | | | | Jesus Manuel ACE Ph:[phone] | | | | + + + + + + + + | Specimen | + + | Blood specimen | | (specimen) | + + + + + + + | Performing | Address | City/State/Zipcode | Phone Number | | Organization | | | | + + + + + | [facility] | [address] | [place] [address] | | | [facility] | | | | | LABORATORY [place] | | | | + + + + + Urea Nitrogen, Urine, Random (11/19/2019 1:05 PM PDT) + + + + --+ + | Component | Value | Ref Range | Performed | Pathologist | | | | | At | Signature | + + + + --+ + | Urea | 299Comment: Performed | 106 - 1,555 | [facility] | | | Nitrogen, | by [facility] [address], | mg/dL | SACRED | | | Urine | [place] [address] | | HEART | | | |Performed by [facility] [address], [place] [address] | | MEDICAL | | | | | | CENTER | | | | | | LABORATORY | | | | | | [place] | | + + + + --+ + + + | Specimen | + + | Urine specimen | | (specimen) - Urine | | specimen obtained by | | single | | catheterization of | | bladder (specimen) | + + + + + + + | Performing | Address | City/State/Zipcode | Phone Number | | Organization | | | | + + + + + | [facility] | [address] | [place] [address] | | | [facility] | | | | | LABORATORY [place] | | | | + + + + + Creatinine, Urine, Random (11/19/2019 1:05 PM PDT) + + + +-------- -----+ + | Component | Value | Ref Range | Perform ed | Pathologist | | | | | At | Signature | + + + +-------- -----+ + | Creatinine, | 46Comment: Performed by | 19 - 311 mg/dL | [facility] | | | Urine | [facility] [address], | | SACRED | | | | [place] [address] | | HEART | | | |Performed by [facility] [address], [place] [address] | | MEDICAL | | | | | | CENTER | | | | | | LABORAT ORY | | | | | | C[facility]ER | | + + + +-------- -----+ + + + | Specimen | + + | Urine specimen | | (specimen) - Urine | | specimen obtained by | | single | | catheterization of | | bladder (specimen) | + + + + + + + | Performing | Address | City/State/Zipcode | Phone Number | | Organization | | | | + + + + + | [facility] | [address] | [place] [address] | | | [facility] | | | | | LABORATORY [facility] | | | | + + + + + Sodium, Urine, Random (11/19/2019 1:05 PM PDT) + + + + ---+ + | Component | Value | Ref Range | Performed | Pathologist | | | | | At | Signature | + + + + ---+ + | U SODIUM | 11Comment: Performed by | 0 - 259 mmol/L | [facility] | | | | [facility] [address], | | [place] | | | | [place] [address] | | HEART | | | |Performed by [facility] [address], [place] [address] | | MEDICAL | | | | | | CENTER | | | | | | LABORATOR Y | | | | | | CERNER | | + + + + ---+ + + + | Specimen | + + | Urine specimen | | (specimen) - Urine | | specimen obtained by | | single | | catheterization of | | bladder (specimen) | + + + + + + + | Performing | Address | City/State/Zipcode | Phone Number | | Organization | | | | + + + + + | [facility] | [address] | [place] [address] | | | [facility] | | | | | LABORATORY C[facility] | | | | + + + + + Urinalysis With Microscopic (11/19/2019 1:05 PM PDT) + + + + + + | Component | Value | Ref Range | Performed | Pathologist | | | | | At | Signature | + + + + + + | Color, | Estefany | | [facility] | | | Urine | | | [facility] | | | | | | HEART | | | | | | MEDICAL | | | | | | CENTER | | | | | | LABORATORY | | | | | | CERNER | | + + + + + + | Clarity, | Cloudy (A) | | [facility] | | | Urine | | | [facility] | | | | | | [facility] | | | | | | MEDICAL | | | | | | CENTER | | | | | | LABORATORY | | | | | | [facility] | | + + + + + + | Glucose, | Negative | Negative mg/dL | [facility] | | | Urine | | | [facility] | | | | | | HEART | | | | | | MEDICAL | | | | | | CENTER | | | | | | LABORATORY | | | | | | CERNER | | + + + + + + | Bilirubin, | Negative | Negative | [facility] | | | Urine | | | [facility] | | | | | | HEART | | | | | | MEDICAL | | | | | | CENTER | | | | | | LABORATORY | | | | | | CERN[facility] | | + + + + + + | Urobilinoge | <2.0 | <2.0 mg/dL | [facility] | | | n, Urine | | | [facility] | | | | | | HEART | | | | | | MEDICAL | | | | | | CENTER | | | | | | LABORATORY | | | | | | CERNER | | + + + + + + | Ketones, | Negative | Negative mg/dL | [facility] | | | Urine | | | [facility] | | | | | | HEART | | | | | | MEDICAL | | | | | | CENTER | | | | | | LABORATORY | | | | | | CERNER | | + + + + + + | Specific | 1.010 | 1.001 - 1.030 | [facility] | | | [place], | | | [facility] | | | Urine | | | HEART | | | | | | MEDICAL | | | | | | CENTER | | | | | | LABORATORY | | | | | | CERNER | | + + + + + + | pH, Urine | 5.0 | 5.0 - 7.5 | [facility] | | | | | | [facility] | | | | | | HE[facility] | | | | | | MEDICAL | | | | | | CENTER | | | | | | LABORATORY | | | | | | CERNER | | + + + + + + | Protein, | 100 (A) | Negative mg/dL | [facility] | | | Urine | | | [facility] | | | | | | HEART | | | | | | MEDICAL | | | | | | CENTER | | | | | | LABORATORY | | | | | | CERNER | | + + + + + + | Nitrite, | Negative | Negative | [facility] | | | Urine | | | [facility]CR[facility] | | | | | | HEART | | | | | | MEDICAL | | | | | | CENTER | | | | | | LABORATORY | | | | | | CERNER | | + + + + + + | Blood, | Moderate (A) | Negative | [facility] | | | Urine | | | SACRED | | | | | | HEART | | | | | | MEDICAL | | | | | | CENTER | | | | | | LABORATORY | | | | | | CERNER | | + + + + + + | Leukocyte | Moderate (A) | Negative | [facility] | | | Esterase, | | | SACRED | | | Urine | | | HEART | | | | | | MEDICAL | | | | | | CENTER | | | | | | LABORATORY | | | | | | CERNER | | + + + + + + | Squamous | Moderate | /hpf | [facility] | | | Epithelial | | | SACRED | | | Cells, | | | HEART | | | Urine | | | MEDICAL | | | | | | CENTER | | | | | | LABORATORY | | | | | | CERNER | | + + + + + + | White Blood | 56 (H) | 0 - 5 /hpf | [facility] | | | Cells, | | | SACRED | | | Urine | | | HEART | | | | | | MEDICAL | | | | | | CENTER | | | | | | LABORATORY | | | | | | CERNER | | + + + + + + | Red Blood | 15 (H) | 0 - 5 | [facility] | | | Cells, | | | SACRED | | | Urine | | | HEART | | | | | | MEDICAL | | | | | | CENTER | | | | | | LABORATORY | | | | | | CERNER | | + + + + + + | Bacteria, | None Seen | | [facility] | | | Urine | | | SACRED | | | | | | HEART | | | | | | MEDICAL | | | | | | CENTER | | | | | | LABORATORY | | | | | | CERNER | | + + + + + + | Amorphous | None Present | | [facility] | | | Crystals, | | | SACRED | | | Urine | | | HEART | | | | | | MEDICAL | | | | | | CENTER | | | | | | LABORATORY | | | | | | CERNER | | + + + + + + | Mucus, | Present (A) | | [facility] | | | Urine | | | SACRED | | | | | | HEART | | | | | | MEDICAL | | | | | | CENTER | | | | | | LABORATORY | | | | | | CERNER | | + + + + + + | White Blood | OccasionalComment: | >=0 /hpf | [facility] | | | Cell | Performed by [facility] [address] | | SACRED | | | [address], [address] [place] | | HEART | | | Urine | [id number] | | MEDICAL | | | | | | CENTER | | | | | | LABORATORY | | | | | | CERNER | | + + + + + + + + | Specimen | + + | Urine specimen | | (specimen) - Urine | | specimen obtained by | | single | | catheterization of | | bladder (specimen) | + + + + + + + | Performing | Address | City/State/Zipcode | Phone Number | | Organization | | | | + + + + + | [facility] | [address] | [place] | | | [facility] | | | | | LABORATORY [facility] | | | | + + + + + POC Glucose (11/19/2019 11:59 AM PDT) + + + + + + | Component | Value | Ref Range | Performed | Pathologist | | | | | At | Signature | + + + + + + | Glucose, | 165 (H)Comment: | 65 - 99 mg/dL | [facility] | | | POC | Performed by [facility] [address] | | SACRED | | | | [address] [place] | | HEART | | | | [id number] | | MEDICAL | | | | | | CENTER | | | | | | LABORATORY | | | | | | CERNER | | + + + + + + + + | Specimen | + + | Blood specimen | | (specimen) | + + + + + + + | Performing | Address | City/State/Zipcode | Phone Number | | Organization | | | | + + + + + | [facility] | [address] | [place] [address] | | | [facility] | | | | | LABORATORY C[facility] | | | | + + + + + Urinalysis With Microscopic (11/19/2019 11:10 AM PDT) + + + + + + | Component | Value | Ref Range | Performed | Pathologist | | | | | At | Signature | + + + + + + | Color, | Yellow | | [facility] | | | Urine | | | SACRED | | | | | | HEART | | | | | | MEDICAL | | | | | | CENTER | | | | | | LABORATORY | | | | | | CERNER | | + + + + + + | Clarity, | Cloudy (A) | | [facility] | | | Urine | | | SACRED | | | | | | HEART | | | | | | MEDICAL | | | | | | CENTER | | | | | | LABORATORY | | | | | | CERNER | | + + + + + + | Glucose, | Negative | Negative mg/dL | [facility] | | | Urine | | | SACRED | | | | | | HEART | | | | | | MEDICAL | | | | | | CENTER | | | | | | LABORATORY | | | | | | CERNER | | + + + + + + | Bilirubin, | Negative | Negative | [facility] | | | Urine | | | SACRED | | | | | | HEART | | | | | | MEDICAL | | | | | | CENTER | | | | | | LABORATORY | | | | | | CERNER | | + + + + + + | Urobilinoge | <2.0 | <2.0 mg/dL | [facility] | | | n, Urine | | | SACRED | | | | | | HEART | | | | | | MEDICAL | | | | | | CENTER | | | | | | LABORATORY | | | | | | CERNER | | + + + + + + | Ketones, | Trace (A) | Negative mg/dL | [facility] | | | Urine | | | SACRED | | | | | | HEART | | | | | | MEDICAL | | | | | | CENTER | | | | | | LABORATORY | | | | | | CERNER | | + + + + + + | Specific | 1.006 | 1.001 - 1.030 | [facility] | | | [place], | | | SACRED | | | Urine | | | HEART | | | | | | MEDICAL | | | | | | CENTER | | | | | | LABORATORY | | | | | | CERNER | | + + + + + + | pH, Urine | 5.0 | 5.0 - 7.5 | [facility] | | | | | | SACRED | | | | | | HEART | | | | | | MEDICAL | | | | | | CENTER | | | | | | LABORATORY | | | | | | CERNER | | + + + + + + | Protein, | 30 (A) | Negative mg/dL | [facility] | | | Urine | | | SACRED | | | | | | HEART | | | | | | MEDICAL | | | | | | CENTER | | | | | | LABORATORY | | | | | | CERNER | | + + + + + + | Nitrite, | Negative | Negative | [facility] | | | Urine | | | SACRED | | | | | | HEART | | | | | | MEDICAL | | | | | | CENTER | | | | | | LABORATORY | | | | | | CERNER | | + + + + + + | Blood, | Moderate (A) | Negative | [facility] | | | Urine | | | SACRED | | | | | | HEART | | | | | | MEDICAL | | | | | | CENTER | | | | | | LABORATORY | | | | | | CERNER | | + + + + + + | Leukocyte | Negative | Negative | [facility] | | | Esterase, | | | SACRED | | | Urine | | | HEART | | | | | | MEDICAL | | | | | | CENTER | | | | | | LABORATORY | | | | | | CERNER | | + + + + + + | Squamous | Few | /hpf | [facility] | | | Epithelial | | | SACRED | | | Cells, | | | HEART | | | Urine | | | MEDICAL | | | | | | CENTER | | | | | | LABORATORY | | | | | | CERNER | | + + + + + + | White Blood | 3 | 0 - 5 /hpf | [facility] | | | Cells, | | | SACRED | | | Urine | | | HEART | | | | | | MEDICAL | | | | | | CENTER | | | | | | LABORATORY | | | | | | CERNER | | + + + + + + | Red Blood | <1 | 0 - 5 | [facility] | | | Cells, | | | SACRED | | | Urine | | | HEART | | | | | | MEDICAL | | | | | | CENTER | | | | | | LABORATORY | | | | | | CERNER | | + + + + + + | Bacteria, | Present (A) | | [facility] | | | Urine | | | SACRED | | | | | | HEART | | | | | | MEDICAL | | | | | | CENTER | | | | | | LABORATORY | | | | | | CERNER | | + + + + + + | Amorphous | None Present | | [facility] | | | Crystals, | | | SACRED | | | Urine | | | HEART | | | | | | MEDICAL | | | | | | CENTER | | | | | | LABORATORY | | | | | | CERNER | | + + + + + + | Mucus, | Present (A)Comment: | | [facility] | | | Urine | Performed by [facility] [address] | | SACRED | | | | [address] [place] | | HEART | | | | [address] | | MEDICAL | | | | | | CENTER | | | | | | LABORATORY | | | | | | CERNER | | + + + + + + + + | Specimen | + + | Urine specimen | | (specimen) - Urine | | specimen obtained by | | single | | catheterization of | | bladder (specimen) | + + + + + + + | Performing | Address | City/State/Zipcode | Phone Number | | Organization | | | | + + + + + | [facility] | [address] | [place] [address] | | | [facility] | | | | | LABORATORY CERNER | | | | + + + + + DIC Panel (11/19/2019 10:53 AM PDT) + + + + + + | Component | Value | Ref Range | Performed | Pathologist | | | | | At | Signature | + + + + + + | D-DIMER, | 3.26 (H)Comment: This | 0.00 - 0.49 | [facility] | | | QUANTITATIV | quantitative D Dimer | ug/mL FEU | [facility] | | | E | assay has been evaluated | | HEART | | | | for screening for | | MEDICAL | | | | venous thrombotic | | CENTER | | | | disease, and may be | | LABORATORY | | | | useful in ruling out, | | [facility] | | | | but not ruling in | | | | | | disease. Values less | | | | | | than 0.40 ug/mL have a | | | | | | negative predictive | | | | | | value of >95% for ruling | | | | | | out large pulmonary | | | | | | emboli or proximal deep | | | | | | vein thrombosis. Distal | | | | | | DVT are not excluded. | | | | | | Rheumatoid factor may | | | | | | falsely elevate the | | | | | | determined D Dimer | | | | | | levels. | | | | + + + + + + | Fibrinogen | 512 (H) | 211 - 419 mg/dL | [facility] | | | | | | SACRED | | | | | | HEART | | | | | | MEDICAL | | | | | | CENTER | | | | | | LABORATORY | | | | | | CERNER | | + + + + + + | INR | 5.2 (H)Comment: Usual | 0.9 - 1.1 | [facility] | | | | oral anticoagulant | | SACRED | | | | range: 2.0 to 3.0 High | | HEART | | | | level oral | | MEDICAL | | | | anticoagulant range: 2.5 | | CENTER | | | | to 3.5 Direct Xa and | | LABORATORY | | | | IIa inhibitors may | | C[facility] | | | | interfere with INR | | | | | | determinations. | | | | + + + + + + | Platelet | 129 (L) | 150 - 400 K/uL | [facility] | | | Count | | | SACRED | | | | | | HEART | | | | | | MEDICAL | | | | | | CENTER | | | | | | LABORATORY | | | | | | CERNER | | + + + + + + | Protime | 47.2 (H) | 12.0 - 14.2 sec | [facility] | | | | | | SACRED | | | | | | HEART | | | | | | MEDICAL | | | | | | CENTER | | | | | | LABORATORY | | | | | | CERNER | | + + + + + + | RBC | Normal | Normal | [facility] | | | Morphology | | | SACRED | | | | | | HEART | | | | | | MEDICAL | | | | | | CENTER | | | | | | LABORATORY | | | | | | CERNER | | + + + + + + | Thrombin | 16.0 | 15.6 - 20.0 sec | [facility] | | | Time, | | | SACRED | | | Patient | | | HEART | | | | | | MEDICAL | | | | | | CENTER | | | | | | LABORATORY | | | | | | CERNER | | + + + + + + | aPTT, | 38 (H)Comment: Deep | 26 - 36 sec | [facility] | | | Patient | venous thrombosis or | | SACRED | | | | pulmonary embolism | | HEART | | | | therapeutic heparin | | MEDICAL | | | | levels of 0.3 to 0.7 | | CENTER | | | | Units/mL anti Factor Xa | | LABORATORY | | | | levels usually | | [facility] | | | | correspond to an aPTT of | | | | | | 71 to 105 seconds. | | | | | | Acute cardiac syndrome | | | | | | therapeutic range based | | | | | | on heparin levels of 0.2 | | | | | | to 0.5 usually | | | | | | correspond to an aPTT of | | | | | | 61 to 85 seconds. | | | | | | Pediatric guidelines | | | | | | suggested heparin levels | | | | | | of 0.35 to 0.7 usually | | | | | | correspond to an aPTT of | | | | | | 76 to 105 | | | | | | seconds.Performed by [facility] | | | | | | [address], | | | | | | [place] [address] | | | | + + + + + + + + | Specimen | + + | Blood specimen | | (specimen) | + + + + + + + | Performing | Address | City/State/Zipcode | Phone Number | | Organization | | | | + + + + + | [facility] | [address] | [place] [address] | | | [facility] | | | | | [place] | | | | + + + + + Protime INR (11/19/2019 10:53 AM PDT) + + + + + + | Component | Value | Ref Range | Performed | Pathologist | | | | | At | Signature | + + + + + + | Prothrombin | 46.2 (H) | 12.0 - 14.2 sec | [facility] | | | Time | | | SACRED | | | | | | HEART | | | | | | MEDICAL | | | | | | CENTER | | | | | | LABORATORY | | | | | | CERNER | | + + + + + + | INR | 5.0 (H)Comment: Usual | 0.9 - 1.1 | [facility] | | | | oral anticoagulant | | SACRED | | | | range: 2.0 to 3.0 High | | HEART | | | | level oral | | MEDICAL | | | | anticoagulant range: 2.5 | | CENTER | | | | to 3.5 Direct Xa and | | LABORATORY | | | | IIa inhibitors may | | C[facility] | | | | interfere with INR | | | | | | determinations.Performed | | | | | | by [facility] [address], | | | | | | [place] [address] | | | | + + + + + + + + | Specimen | + + | Blood specimen | | (specimen) | + + + + + + + | Performing | Address | City/State/Zipcode | Phone Number | | Organization | | | | + + + + + | [facility] | [address] [place] [address]. | [place] [address] | | | [facility] | | | | | [place] | | | | + + + + + Magnesium (11/19/2019 10:53 AM PDT) + + + +--------- ----+ + | Component | Value | Ref Range | Performe d | Pathologist | | | | | At | Signature | + + + +--------- ----+ + | Magnesium | 2.1Comment: Performed | 1.7 - 2.4 mg/dL | [facility] | | | | by [facility] [address], | | SACRED | | | | [place] [address] | | HEART | | | |Performed by [facility] [address], [place] [address] | | MEDICAL | | | | | | CENTER | | | | | | LABORATO RY | | | | | | CERNER | | + + + +--------- ----+ + + + | Specimen | + + | Blood specimen | | (specimen) | + + + + + + + | Performing | Address | City/State/Zipcode | Phone Number | | Organization | | | | + + + + + | [facility] | [address] | [place] [address] | | | [facility] | | | | | LABORATORY [facility] | | | | + + + + + Lactic Acid (11/19/2019 10:53 AM PDT) + + + + + + | Component | Value | Ref Range | Performed | Pathologist | | | | | At | Signature | + + + + + + | Lactate, | 9.0 (AA)Comment: | 0.5 - 2.2 | [facility] | | | Venous | Critical Lactate | mmol/L | SACRED | | | | called to and read | | HEART | | | | back by Arleen Ken | | MEDICAL | | | | F at 11/19/2019 | | CENTER | | | | 11:24:55 PDT by | | LABORATORY | | | | [email or web address].Performed by [facility] [address] | | [place] | | | | [address], [place] | | | | | | [address] | | | | + + + + + + + + | Specimen | + + | Blood specimen | | (specimen) | + + + + + + + | Performing | Address | City/State/Zipcode | Phone Number | | Organization | | | | + + + + + | [facility] | [address] | [place] [address] | | | [facility] | | | | | LABORATORY [facility] | | | | + + + + + Comprehensive Metabolic Panel (11/19/2019 10:53 AM PDT) + + + + + + | Component | Value | Ref Range | Performed | Pathologist | | | | | At | Signature | + + + + + + | Na | 134 (L) | 135 - 145 | [facility] | | | | | mmol/L | SACRED | | | | | | HEART | | | | | | MEDICAL | | | | | | CENTER | | | | | | LABORATORY | | | | | | C[facility] | | + + + + + + | K | 5.0 | 3.5 - 5.0 | [facility] | | | | | mmol/L | SACRED | | | | | | HEART | | | | | | MEDICAL | | | | | | CENTER | | | | | | LABORATORY | | | | | | C[facility] | | + + + + + + | Cl | 98 (L) | 99 - 109 mmol/L | [facility] | | | | | | SACRED | | | | | | HEART | | | | | | MEDICAL | | | | | | CENTER | | | | | | LABORATORY | | | | | | CERN[facility] | | + + + + + + | CO2 | 13 (L) | 21 - 28 mmol/L | [facility] | | | | | | SACRED | | | | | | HEART | | | | | | MEDICAL | | | | | | CENTER | | | | | | LABORATORY | | | | | | [facility] | | + + + + + + | Calcium | 9.4 | 8.5 - 10.2 | [facility] | | | | | mg/dL | SACRED | | | | | | HEART | | | | | | MEDICAL | | | | | | CENTER | | | | | | LABORATORY | | | | | | [facility] | | + + + + + + | Anion Gap | 23 (H) | 5 - 16 mmol/L | [facility] | | | | | | SACRED | | | | | | HEART | | | | | | MEDICAL | | | | | | CENTER | | | | | | LABORATORY | | | | | | [facility] | | + + + + + + | Albumin | 3.9 | 3.3 - 4.8 g/dL | [facility] | | | | | | SACRED | | | | | | HEART | | | | | | MEDICAL | | | | | | CENTER | | | | | | LABORATORY | | | | | | CERNER | | + + + + + + | BUN | 31 (H) | 8 - 25 mg/dL | [facility] | | | | | | SACRED | | | | | | HEART | | | | | | MEDICAL | | | | | | CENTER | | | | | | LABORATORY | | | | | | [facility] | | + + + + + + | Creatinine | 1.58 (H) | 0.50 - 1.00 | [facility] | | | | | mg/dL | SACRED | | | | | | HEART | | | | | | MEDICAL | | | | | | CENTER | | | | | | LABORATORY | | | | | | [facility] | | + + + + + + | Glucose | 192 (H) | 65 - 99 mg/dL | [facility] | | | | | | SACRED | | | | | | HEART | | | | | | MEDICAL | | | | | | CENTER | | | | | | LABORATORY | | | | | | [facility] | | + + + + + + | Total | 5.8 (L) | 6.1 - 7.8 g/dL | [facility] | | | Protein | | | SACRED | | | | | | HEART | | | | | | MEDICAL | | | | | | CENTER | | | | | | LABORATORY | | | | | | C[facility] | | + + + + + + | Alkaline | 247 (H) | 35 - 115 U/L | [facility] | | | Phosphatase | | | SACRED | | | | | | HEART | | | | | | MEDICAL | | | | | | CENTER | | | | | | LABORATORY | | | | | | C[facility] | | + + + + + + | ALT | 3,283 (H) | 10 - 65 U/L | [facility] | | | | | | SACRED | | | | | | HEART | | | | | | MEDICAL | | | | | | CENTER | | | | | | LABORATORY | | | | | | [facility]ERN[facility] | | + + + + + + | AST | 7,030 (H) | 10 - 45 U/L | [facility] | | | | | | SACRED | | | | | | HEART | | | | | | MEDICAL | | | | | | CENTER | | | | | | LABORATORY | | | | | | C[facility] | | + + + + + + | Bilirubin | 3.5 (H) | 0.2 - 1.1 mg/dL | [facility] | | | Total | | | SACRED | | | | | | HEART | | | | | | MEDICAL | | | | | | CENTER | | | | | | LABORATORY | | | | | | [place] | | + + + + + + | Estimated | 30 (L)Comment: eGFR<60 | >=90 | [facility] | | | GFR | consistent with impaired | mL/min/1.73m2 | SACRED | | | | kidney function.For | | HEART | | | | [place], | | MEDICAL | | | | multiply the calculated | | CENTER | | | | GFR by 1.210Performed by | | LABORATORY | | | | [facility] [address], | | [place] | | | | [place] [address] | | | | + + + + + + + + | Specimen | + + | Blood specimen | | (specimen) | + + + + + + + | Performing | Address | City/State/Zipcode | Phone Number | | Organization | | | | + + + + + | [facility] | [address] | [place] [address] | | | [facility] | | | | | LABORATORY [place] | | | | + + + + + CBC no Differential (11/19/2019 10:53 AM PDT) + + + +------- ------+ + | Component | Value | Ref Range | Perfor med | Pathologist | | | | | At | Signature | + + + +------- ------+ + | White Blood | 10.13 | 3.80 - 11.00 | [facility] | | | Cells | | K/uL | SACR[facility] | | | | | | HEART | | | | | | MEDICA L | | | | | | CENTER | | | | | | LABORA TORY | | | | | | [place] | | + + + +------- ------+ + | Red Blood | 4.04 | 3.70 - 5.10 | [facility] | | | Cells | | M/uL | [facility] | | | | | | HEART | | | | | | MEDICA L | | | | | | CENTER | | | | | | LABORA TORY | | | | | | [facility] | | + + + +------- ------+ + | Hemoglobin | 11.8 | 11.3 - 15.5 | [facility] | | | | | g/dL | SACR[facility] | | | | | | HEART | | | | | | MEDICA L | | | | | | CENTER | | | | | | LABORA TORY | | | | | | [facility] | | + + + +------- ------+ + | Hct | 35.7 | 34.0 - 46.0 % | [facility] | | | | | | [facility]CR[facility] | | | | | | HEART | | | | | | MEDICA L | | | | | | CENTER | | | | | | LABORA TORY | | | | | | [place] | | + + + +------- ------+ + | MCV | 88.4 | 80.0 - 100.0 fL | [facility] | | | | | | SACRED | | | | | | HEART | | | | | | MEDICA L | | | | | | CENTER | | | | | | LABORA TORY | | | | | | [place] | | + + + +------- ------+ + | MCH | 29.2 | 27.0 - 34.0 pg | [facility] | | | | | | SACR[facility] | | | | | | HEART | | | | | | MEDICA L | | | | | | CENTER | | | | | | LABORA TORY | | | | | | [place] | | + + + +------- ------+ + | MCHC | 33.1 | 32.0 - 35.5 | [facility] | | | | | g/dL | SACR[facility] | | | | | | HEART | | | | | | MEDICA L | | | | | | CENTER | | | | | | LABORA TORY | | | | | | [place] | | + + + +------- ------+ + | RDW-CV | 14.6 | 11.0 - 15.5 % | [facility] | | | | | | [facility]CR[facility] | | | | | | HEART | | | | | | MEDICA L | | | | | | CENTER | | | | | | LABORA TORY | | | | | | [place] | | + + + +------- ------+ + | Platelet | 135 (L) | 150 - 400 K/uL | [facility] | | | Count | | | SACRED | | | | | | HEART | | | | | | MEDICA L | | | | | | CENTER | | | | | | LABORA TORY | | | | | | [place] | | + + + +------- ------+ + | MPV | 11.4Comment: Performed | 9.3 - 12.7 fL | [facility] | | | | by [facility] [address], | | SACRED | | | | [place] [address] | | HEART | | | |Performed by [facility] [address], [place] [address] | | MEDICA L | | | | | | CENTER | | | | | | LABORA TORY | | | | | | [facility] | | + + + +------- ------+ + + + | Specimen | + + | Blood specimen | | (specimen) | + + + + + + + | Performing | Address | City/State/Zipcode | Phone Number | | Organization | | | | + + + + + | [facility] | [address] | [place] [address] | | | [facility] | | | | | LABORATORY [place] | | | | + + + + + Troponin I (11/19/2019 10:53 AM PDT) + + + + + + | Component | Value | Ref Range | Performed | Pathologist | | | | | At | Signature | + + + + + + | Troponin I | 0.538 (AA)Comment: | 0.000 - 0.069 | [facility] | | | | Critical Troponin | ng/mL | [facility] | | | | called to and read | | HEART | | | | back by Arleen Ken | | MEDICAL | | | | F at 11/19/2019 | | CENTER | | | | 11:30:17 PDT by [email or web address]. | | LABORATORY | | | | >/= 0.300 ng/ml. | | [facility] | | | | Consistent with | | | | | | traditional acute | | | | | | myocardial infarction. | | | | | | Serial Troponin levels | | | | | | are | | | | | | recommended.Ultra-Sensit | | | | | | justina TroponinPerformed by | | | | | | [facility] [address], | | | | | | [place] [address] | | | | + + + + + + + + | Specimen | + + | Blood specimen | | (specimen) | + + + + + + + | Performing | Address | City/State/Zipcode | Phone Number | | Organization | | | | + + + + + | [facility] | [address] | [place] [address] | | | [facility] | | | | | [place] | | | | + + + + + ECG 12 lead (11/19/2019 10:28 AM PDT) + + | Specimen | + + | | + + + + + | Narrative | Performed At | + + + | HEART RATE:55 | [facility] | | bpmRR Interval:1091 msAtrial Rate:55 msP-R Interval:176 msP | [facility] | | Duration:184 msP Horizontal Yarnell:12 degP Front Yarnell:32 degQ Onset:512 | | | msQRSD Interval:136 msQT Interval:596 msQTcB:571 msQTcF:579 msQRS | | | Horizontal Yarnell:260 degQRS Yarnell:-43 degI-40 Horizontal Yarnell:-35 | | | degI-40 Front Yarnell:31 degT-40 Horizontal Yarnell:236 degT-40 Front | | | Yarnell:-59 degT Horizontal Yarnell:153 degT Wave Yarnell:261 degS-T Horizontal | | | Yarnell:122 degS-T Front Yarnell:182 degSeverity:- ABNORMAL ECG | | | -INTERP:SINUS RHYTHMINTERP:LEFT BUNDLE BRANCH BLOCKElectronically | | | signed by: , 11-19-2019 11:08:42 | | |QTcB:571 ms | | |QTcF:579 ms | | |QRS Horizontal Yarnell:260 deg | | |QRS Yarnell:-43 deg | | |I-40 Horizontal Yarnell:-35 deg | | |I-40 Front Yarnell:31 deg | | |T-40 Horizontal Yarnell:236 deg | | |T-40 Front Yarnell:-59 deg | | |T Horizontal Yarnell:153 deg | | |T Wave Yarnell:261 deg | | |S-T Horizontal Yarnell:122 deg | | |S-T Front Yarnell:182 deg | | |Severity:- ABNORMAL ECG - | | |INTERP:SINUS RHYTHM | | |INTERP:LEFT BUNDLE BRANCH BLOCK | | |Electronically signed by: , 11-19-2019 11:08:42 | | + + + + + + + + | Performing | Address | City/State/Zipcode | Phone Number | | Organization | | | | + + + + + | [facility] | [address] | [place] [address] | [phone] | + + + + + LABS - EXTERNAL SCAN (11/19/2019 12:00 AM PDT) + + + | Narrative | Performed At | + + + | Ordered by an | | | unspecified provider. | | + + + ECG - EXTERNAL SCAN (11/19/2019 12:00 AM PDT) + + + | Narrative | Performed At | + + + | Ordered by an | | | unspecified provider. | | + + + ECHO-EXTERNAL SCAN (11/16/2019 12:00 AM PDT) + + + | Narrative | Performed At | + + + | Ordered by an | | | unspecified provider. | | + + + ARRHYTHMIA MONITOR - EXTERNAL SCAN (11/16/2019 12:00 AM PDT) + + + | Narrative | Performed At | + + + | Ordered by an | | | unspecified provider. | | + + + documented in this encounter Visit Diagnoses + + | Diagnosis | + + | Acute kidney injury (ROSALVA) with acute tubular necrosis (ATN) ([facility]) - Primary | + + | Atrial fibrillation with RVR ([facility]) Atrial fibrillation | + + | Bacteremia due to Escherichia coli Bacteremia | + + | Bradycardia Other specified cardiac dysrhythmias | + + | Coronary artery disease involving [place] coronary artery of [place] heart without | | angina pectoris | + + | Hyperkalemia Hyperpotassemia | + + | Ischemic cardiomyopathy Other specified forms of chronic ischemic heart disease | + + | Metabolic acidosis Acidosis | + + | Prolonged Q-T interval on ECG Nonspecific abnormal electrocardiogram (ECG) (EKG) | + + | Septic shock (HCC) | + + | Shock liver Acute and subacute necrosis of liver | + + | Type 2 diabetes mellitus with other specified complication, without long-term current | | use of insulin (HCC) | + + | Mitral valve insufficiency, unspecified etiology | + + documented in this encounter Administered Medications + +--------+ +-------+------+------+ | Medication Order | MAR | Action | Dose | Rate | Site | | | Action | Date | | | | + +--------+ +-------+------+------+ | aspirin EC tablet 81 mg 81 mg, | Given | 11/20/19 | 81 mg | | | | Oral, DAILY, First dose on Sat | | 20 8:08 | | | | | 11/19/19 at 1100 | | AM PDT | | | | + +--------+ +-------+------+------+ +-------+ +-------+---+---+ | Given | 11/19/19 | 81 mg | | | | | 20 12:03 | | | | | | PM PDT | | | | +-------+ +-------+---+---+ +---+---+ | | | +---+---+ + +---------+ +-----+-------+---+ | cefTRIAXone (ROCEPHIN) 1 g in | New Bag | 11/19/19 | 1 g | 100 | | | sodium chloride 0.9% 50 mL IVPB | | 20 11:01 | | mL/hr | | | 1 g, Intravenous, Administer over | | AM PDT | | | | | 30 Minutes, EVERY 24 HOURS | | | | | | | (Daily), First dose on Sat11/19/19 | | | | | | | at 1100, Activate system and mix | | | | | | | before use., Indications: | | | | | | | Bacteremia | | | | | | + +---------+ +-----+-------+---+ +---+---+ | | | +---+---+ + +---------+ +-----+-------+---+ | cefTRIAXone (ROCEPHIN) 2 g in | New Bag | 11/23/19 | 2 g | 100 | | | sodium chloride 0.9% 50 mL IVPB | | 20 8:17 | | mL/hr | | | 2 g, Intravenous, Administer over | | AM PDT | | | | | 30 Minutes, EVERY 24 HOURS | | | | | | | (Daily), First dose (after last | | | | | | | modification) on Sat11/20/19 at | | | | | | | 0900, For 4 doses, Renally dosed | | | | | | | per P&T approval. Activate system | | | | | | | and mix before use., | | | | | | | Indications: Bacteremia | | | | | | + +---------+ +-----+-------+---+ +---------+ +-----+-------+---+ | New Bag | 11/22/19 | 2 g | 100 | | | | 20 8:41 | | mL/hr | | | | AM PDT | | | | +---------+ +-----+-------+---+ | New Bag | 11/21/19 | 2 g | 100 | | | | 20 8:28 | | mL/hr | | | | AM PDT | | | | +---------+ +-----+-------+---+ + +---+ | | | + +---+ | dextrose 10% (D10W) infusion | | | at 50 mL/hr, Intravenous, | | | CONTINUOUS PRN, hypoglycemia, | | | Starting [facility] 11/19/19 at 1040, | | | Start infusion if unable to | | | maintain blood glucose greater | | | than 70 mg/dL after two rounds of | | | hypoglycemia treatment. Recheck | | | blood glucose 30 minutes after | | | starting D10W then at least | | | hourly and PRN until it is | | | discontinued. Call provider to | | | discuss parameters for D10W | | | discontinuation., | | + +---+ | | | + +---+ | dextrose 50% injection 12.5-25 | | | g 12.5-25 g, Intravenous, PRN, | | | Low Blood Sugar, Starting [facility] | | | 11/19/19 at 1040, For blood glucose | | | 50-69 mg/dl - give 12.5 g For | | | blood glucose less than 50 mg/dl | | | - give 25 g, | | + +---+ | | | + +---+ + +-------+ +-------+---+ + | enoxaparin (LOVENOX) 40 mg/0.4 | Given | 11/23/19 | 40 mg | | Abdomen- | | mL injection 40 mg 40 mg, | | 20 5:11 | | | RLQ | | Subcutaneous, EVERY 24 HOURS | | PM PDT | | | | | (Daily), First dose on 11/21/19 | | | | | | | at 1600 | | | | | | + +-------+ +-------+---+ + +-------+ +-------+---+ + | Given | 11/22/19 | 40 mg | | Arm-Righ | | | 20 4:39 | | | t Upper | | | PM PDT | | | | +-------+ +-------+---+ + | Given | 11/21/19 | 40 mg | | Arm-Left | | | 20 4:06 | | | Upper | | | PM PDT | | | | +-------+ +-------+---+ + +---+---+ | | | +---+---+ + +-------+ +-------+---+ + | enoxaparin (LOVENOX) 60 mg/0.6 | Given | 11/24/19 | 60 mg | | Abdomen- | | mL injection 60 mg 60 mg | | 20 8:36 | | | LLQ | | (rounded from 69.8 mg = 1 mg/kg | | AM PDT | | | | | | | | | | | | 69.8 kg), Subcutaneous, EVERY 12 | | | | | | | HOURS (2 times per day), First | | | | | | | dose (after last modification) on | | | | | | | 11/23/19 at 2115 | | | | | | + +-------+ +-------+---+ + +-------+ +-------+---+ + | Given | 11/23/19 | 60 mg | | Abdomen- | | | 20 10:02 | | | RLQ | | | PM PDT | | | | +-------+ +-------+---+ + +---+---+ | | | +---+---+ + +-------+ +--------+---+ + | heparin 5,000 units/mL | Given | 11/19/19 | 5,000 | | Abdomen- | | injection 5,000 Units 5,000 | | 20 8:59 | Units | | LLQ | | Units, Subcutaneous, EVERY 12 | | PM PDT | | | | | HOURS (2 times per day), First | | | | | | | dose on Sat11/19/19 at 0900 | | | | | | + +-------+ +--------+---+ + +-------+ +--------+---+ + | Given | 11/19/19 | 5,000 | | Abdomen- | | | 20 11:04 | Units | | LLQ | | | AM PDT | | | | +-------+ +--------+---+ + +---+---+ | | | +---+---+ + +-------+ +---------+---+ + | insulin lispro (humaLOG) | Given | 11/19/19 | 1 Units | | Abdomen- | | injection (vial) 0-6 Units 0-6 | | 20 12:00 | | | LLQ | | Units, Subcutaneous, 4 TIMES | | PM PDT | | | | | DAILY WITH MEALS & NIGHTLY, First | | | | | | | dose on Nida 11/19/19 at 1200, | | | | | | | CORRECTION SCALE: Blood Glucose | | | | | | | (BG) < 150: None BG | | | | | | | 150-200: DAY: 1 units. NIGHT: 0 | | | | | | | units BG 201-250: DAY: 2 | | | | | | | units. NIGHT: 1 units BG | | | | | | | 251-300: DAY: 3 units. NIGHT: 2 | | | | | | | units BG 301-350: DAY: 4 units. | | | | | | | NIGHT: 3 units BG 351-400: | | | | | | | DAY: 5 units. NIGHT: 4 units | | | | | | | BG > 400 : DAY: 6 units. | | | | | | | NIGHT: 5 units | | | | | | | AND CALL PROVIDER Use DAY | | | | | | | DOSE for doses scheduled: | | | | | | | AC, NPO, Daytime 3747-6199 Use | | | | | | | NIGHT DOSE for doses scheduled: | | | | | | | HS, Nighttime [id number] If | | | | | | | the BG is not checked before the | | | | | | | patient starts eating, do not | | | | | | | give correction insulin. Only for | | | | | | | use with U-100 insulin syringe., | | | | | | | | | | | | | + +-------+ +---------+---+ + +---+---+ | | | +---+---+ + +-------+ +---------+---+---+ | losartan (COZAAR) tablet 12.5 | Given | 11/22/19 | 12.5 mg | | | | mg 12.5 mg, Oral, DAILY, First | | 20 8:42 | | | | | dose on 11/21/19 at 1245 | | AM PDT | | | | + +-------+ +---------+---+---+ +-------+ +---------+---+---+ | Given | 11/21/19 | 12.5 mg | | | | | 20 2:07 | | | | | | PM PDT | | | | +-------+ +---------+---+---+ +---+---+ | | | +---+---+ + +-------+ +---------+---+---+ | losartan (COZAAR) tablet 12.5 | Given | 11/22/19 | 12.5 mg | | | | mg 12.5 mg, Oral, ONCE, Sun | | 20 10:49 | | | | | 11/22/19 at 0945, For 1 dose | | AM PDT | | | | + +-------+ +---------+---+---+ +---+---+ | | | +---+---+ + +-------+ +-------+---+---+ | losartan (COZAAR) tablet 25 mg | Given | 11/23/19 | 25 mg | | | | 25 mg, Oral, DAILY, First dose | | 20 8:17 | | | | | (after last modification) on Mon | | AM PDT | | | | | 11/23/19 at 0900 | | | | | | + +-------+ +-------+---+---+ +---+---+ | | | +---+---+ + +-------+ +-------+---+---+ | losartan (COZAAR) tablet 50 mg | Given | 11/24/19 | 50 mg | | | | 50 mg, Oral, DAILY, First dose | | 20 8:36 | | | | | (after last modification) on Sat | | AM PDT | | | | | 11/24/19 at 0900 | | | | | | + +-------+ +-------+---+---+ +---+---+ | | | +---+---+ + +---------+ +-----+ +---+ | magnesium sulfate 2 g/50 mL | New Bag | 11/23/19 | 2 g | 25 mL/hr | | | IVPB 2 g 2 g, Intravenous, | | 20 9:27 | | | | | Administer over 120 Minutes, | | AM PDT | | | | | ONCE, 11/23/19 at 0845, For 1 | | | | | | | dose, Maximum recommended | | | | | | | infusion rate = 1 gram/hour., | | | | | | + +---------+ +-----+ +---+ +---+---+ | | | +---+---+ + +-------+ +-------+---+---+ | metoprolol succinate | Given | 11/23/19 | 25 mg | | | | (TOPROL-XL) ER tablet 25 mg 25 | | 20 8:17 | | | | | mg, Oral, DAILY, First dose | | AM PDT | | | | | (after last modification) on [facility] | | | | | | | 11/19/19 at 1830, Tablet may be cut | | | | | | | where scored but do not crush., | | | | | | + +-------+ +-------+---+---+ +-------+ +-------+---+---+ | Given | 11/22/19 | 25 mg | | | | | 20 8:42 | | | | | | AM PDT | | | | +-------+ +-------+---+---+ | Given | 11/21/19 | 25 mg | | | | | 20 8:25 | | | | | | AM PDT | | | | +-------+ +-------+---+---+ +---+---+ | | | +---+---+ + +-------+ +-------+---+---+ | metoprolol succinate | Given | 11/23/19 | 25 mg | | | | (TOPROL-XL) ER tablet 25 mg 25 | | 20 11:17 | | | | | mg, Oral, ONCE, 11/23/19 at | | AM PDT | | | | | 1030, For 1 dose, Tablet may be | | | | | | | cut where scored but do not | | | | | | | crush., | | | | | | + +-------+ +-------+---+---+ +---+---+ | | | +---+---+ + +-------+ +-------+---+---+ | metoprolol succinate | Given | 11/24/19 | 50 mg | | | | (TOPROL-XL) ER tablet 50 mg 50 | | 20 8:36 | | | | | mg, Oral, DAILY, First dose | | AM PDT | | | | | (after last modification) on Sat | | | | | | | 11/24/19 at 0900, Tablet may be cut | | | | | | | where scored but do not crush., | | | | | | + +-------+ +-------+---+---+ +---+---+ | | | +---+---+ + +-------+ +---+---+---+ | miconazole (MICATIN) 2% powder | Given | 11/23/19 | | | | | Topical, 2 TIMES DAILY, First | | 20 8:26 | | | | | dose on Sat11/20/19 at 1015, Apply | | PM PDT | | | | | to: Groin-Right, Groin-Left | | | | | | + +-------+ +---+---+---+ +-------+ +---+---+---+ | Given | 11/23/19 | | | | | | 20 8:23 | | | | | | AM PDT | | | | +-------+ +---+---+---+ | Given | 11/22/19 | | | | | | 20 9:38 | | | | | | PM PDT | | | | +-------+ +---+---+---+ +---+---+ | | | +---+---+ + +---------+ +-------+-------+---+ | phytonadione (VITAMIN K) 10 mg | New Bag | 11/20/19 | 10 mg | 102 | | | in sodium chloride 0.9% 50 mL | | 20 3:58 | | mL/hr | | | IVPB 10 mg, Intravenous, | | PM PDT | | | | | Administer over 30 Minutes, ONCE, | | | | | | | 11/20/19 at 1530, For 1 dose, | | | | | | | Protect from light., | | | | | | + +---------+ +-------+-------+---+ +---+---+ | | | +---+---+ + +-------+ +--------+---+---+ | potassium chloride (Klor-Con | Given | 11/21/19 | 40 mEq | | | | M20) ER tablet 40 mEq 40 mEq, | | 20 8:25 | | | | | Oral, ONCE, 11/21/19 at 0830, | | AM PDT | | | | | For 1 dose | | | | | | + +-------+ +--------+---+---+ +---+---+ | | | +---+---+ + +-------+ +--------+---+---+ | potassium chloride (Klor-Con | Given | 11/23/19 | 40 mEq | | | | M20) ER tablet 40 mEq 40 mEq, | | 20 9:27 | | | | | Oral, ONCE, Mon 8/20 at 0845, | | AM PDT | | | | | For 1 dose | | | | | | + +-------+ +--------+---+---+ +---+---+ | | | +---+---+ + +-------+ +---------+---+---+ | probiotic capsule 1 capsule 1 | Given | 11/23/19 | 1 | | | | capsule, Oral, 2 TIMES DAILY WITH | | 20 5:11 | capsule | | | | BREAKFAST & DINNER, First dose | | PM PDT | | | | | on Sat11/20/19 at 0800, For 8 | | | | | | | doses, Equivalent to VSL#3 | | | | | | | capsule. DO NOT OPEN OR CRUSH. | | | | | | | Opening capsules increases the | | | | | | | risk of aerosolization of the | | | | | | | probiotics bacteria and | | | | | | | contamination of the surrounding | | | | | | | environment. Probiotics added by | | | | | | | pharmacy per P&T protocol. Do not | | | | | | | open or crush., | | | | | | + +-------+ +---------+---+---+ +-------+ +---------+---+---+ | Given | 11/23/19 | 1 | | | | | 20 8:17 | capsule | | | | | AM PDT | | | | +-------+ +---------+---+---+ | Given | 11/22/19 | 1 | | | | | 20 4:39 | capsule | | | | | PM PDT | | | | +-------+ +---------+---+---+ +---+---+ | | | +---+---+ + +---------+ +---+ +---+ | sodium bicarbonate 150 mEq in | New Bag | 11/20/19 | | 65 mL/hr | | | dextrose 5% 1,000 mL infusion at | | 20 2:33 | | | | | 65 mL/hr, Intravenous, | | AM PDT | | | | | CONTINUOUS, Starting Nida 11/19/19 | | | | | | | at 0900 | | | | | | + +---------+ +---+ +---+ + + +---+ +---+ | Rate/Dose Change | 11/19/19 | | 65 mL/hr | | | | 20 3:17 | | | | | | PM PDT | | | | + + +---+ +---+ | New Bag | 11/19/19 | | 75 mL/hr | | | | 20 10:57 | | | | | | AM PDT | | | | + + +---+ +---+ +---+---+ | | | +---+---+ + +---------+ +---+ +---+ | sodium chloride 0.9% (NS) | New Bag | 11/20/19 | | 65 mL/hr | | | infusion at 65 mL/hr, | | 20 10:08 | | | | | Intravenous, CONTINUOUS, Starting | | AM PDT | | | | | 11/20/19 at 0915 | | | | | | + +---------+ +---+ +---+ +---+---+ | | | +---+---+ + +-------+ +------+---+---+ | warfarin (COUMADIN) tablet 1 mg | Given | 11/23/19 | 1 mg | | | | 1 mg, Oral, Once - Warfarin, | | 20 5:11 | | | | | First dose on 11/23/19 at 1800, | | PM PDT | | | | | For 1 dose, Reproductive Risk: | | | | | | | Use appropriate handling | | | | | | | precautions. Drug education | | | | | | | required., | | | | | | + +-------+ +------+---+---+ +---+---+ | | | +---+---+ + +-------+ +--------+---+---+ | warfarin (COUMADIN) tablet 2.5 | Given | 11/22/19 | 2.5 mg | | | | mg 2.5 mg, Oral, Once - | | 20 10:50 | | | | | Warfarin, First dose on Sun | | AM PDT | | | | | 11/22/19 at 0945, For 1 dose, | | | | | | | Reproductive Risk: Use | | | | | | | appropriate handling precautions. | | | | | | | Drug education required., | | | | | | + +-------+ +--------+---+---+ + +---+ | | | + +---+ | warfarin per pharmacy PHARMACY | | | CONSULT, Starting 11/23/19 at | | | 0000, What is the goal INR range | | | for this patient? 2-3 | | + +---+ | | | + +---+ documented in this encounter
--- OUTSIDE RECORDS SUMMARY | ~2020-01-23 | XMS | Encounter Summary ---
Demographics + + + | Address | [address] | | | [place] [address] | + + + | Home Phone | | + + + | Preferred Language | Unknown | + + + | Marital Status | | + + + | Advent Affiliation | Unknown | + + + | Race | Unknown | + + + | Ethnic Group | Unknown | + + + Author + + + | Author | [facility] | | | and [place] | + + + | Organization | [facility] | | | [...] [place], | | | | | [place] [address] | | + + + + + | Linda Roman | ECON | Unknown | | + + + + + Care Team Providers + +------+ + | Care Job Press Operator Name | Role | Phone | + +------+ + | Alyssa Joseph | PCP | | + +------+ + Reason for Visit + +--------+ + | Reason | Onset | Comments | | | Date | | + +--------+ + | Medication Refill | 12/07/ | metoprolol succinate (TOPROL-XL) 25 mg 24 hr tablet | | Assistance | 2020 | | + +--------+ + Encounter Details +--------+ + + + + | Date | Type | Department | Care Team | Description | +--------+ + + + + | 12/07/ | Telephone | [facility] | Marie, | Medication Refill | | 2020 | | [facility] | Canelo Arce MD [address] | Assistance | | | | [address] | [address] | (metoprolol | | | | [address] [place], [place] | [address] [place], [place] | succinate | | | | [address] | [id number] | (TOPROL-XL) 25 mg 24 | | | | [phone] | | hr tablet) | +--------+ + + + + Social [...] this encounter Miscellaneous Notes Telephone Encounter - Cassie Crowley RN - 12/08/2019 3:18 PM PDTCalled [place] back and le t her know that Dr. Salazar decreased the metoprolol to 25mg daily on 12/03 elephone Encounter - Bernadine Guy - 12/08/2019 2:57 PM PDTPlease return call to [place] at [facility] re garding patient's metoprolol succinate (TOPROL-XL) 25 mg 24 hr tablet. [facility] states there is another order for metoprolol 50 mg daily from provider Carolyn Crockett. documented in this en counter Plan of Treatment +--------+---------+ + + + | Date | Type | Specialty | Care Team | Description | +--------+---------+ + + + | 01/26/ | Office | Sleep Medicine | Amy Jiang | | 2019 | Visit | | [facility] [address] | | | | | [address] [place] | | | | | | [place] [address] | | | | | | [phone] | | | | | | | | +--------+---------+ + + + documented as of this encounter Visit Diagnoses Not on filedocumented in this encounter"
--- OUTSIDE RECORDS SUMMARY | ~2020-01-23 | XMS | Encounter Summary ---
Demographics + + + | Address | [address] | | | [place] [address] | + + + | Home Phone | | + + + | Preferred Language | Unknown | + + + | Marital Status | | + + + | Hinduism Affiliation | Unknown | + + + | Race | Unknown | + + + | Ethnic Group | Unknown | + + + Author + + + | Author | [facility] | | | and [place] | + + + | Organization | [facility] | | | and [...] [place], | | | | | [place] [address] | | + + + + + | Linda Roman | ECON | Unknown | | + + + + + Care Team Providers + +------+ + | Care Shovel Loader Operator Name | Role | Phone | [...] + + + + | 11/24/ | Home Care | [facility] [place] | Diane Marshall, | SN SOC ([place]) | | 2020 | Visit | [place] [address] | RN | | | | | [place] | | | | | | [address] | | | | | | [phone] | | | +--------+ + + + [...] + + + | Blood Pressure | 130/68 | 11/25/2019 9:20 AM | | | | | PDT | | + + + + + | Pulse | 78 | 11/25/2019 9:20 AM | | | | | PDT | | + + + + + | Temperature | 36.7 C (98.1 F) | 11/25/2019 9:20 AM | | | | | PDT | | + + + + + | Respiratory Rate | 16 | 11/25/2019 9:20 AM | | | | | PDT | | + + + + + | Oxygen Saturation | 97% | 11/25/2019 9:20 AM | | | | | PDT [...] + + + documented in this encounter Plan of Treatment [...] [place] | | | | | | [place] [address] | | | | | | [phone] | | | | | | | | +--------+---------+ + + + documented as of this encounter Visit Diagnoses Not on filedocumented in this encounter Home Health Visit - Care Plan + + | Visit Type - SN - [facility]AS[facility] START OF CARE | | Discipline - Usp | + + + + +--------+--------+ + + | Problem | Description | Start | Status | Goals | Interventio | | | | Date | | | ns | + + +--------+--------+ + + | HH SHARED DIABETIC | Diabetic foot care | | | 1 goal | 1 goal | | FOOT CARE | | 11/24/ | Active | linked to | interventio | | Disciplines: | | 020 | | scheduled/d | n | | Usp | | | | ocumented | scheduled/d [...] | linked to | interventio | | Usp | | 020 | | scheduled/d | n | | | | | | ocumented | scheduled/d | | | | | | interventio | ocumented | | | | | | n | in this | | | | | | | visit | + + +--------+--------+ + + | HH SHARED PAIN | Pain | | | 1 goal | 1 goal | | Disciplines: | | | Active | linked to | interventio | | Usp | | 020 | | scheduled/d | n | | | | | | ocumented | scheduled/d | | | | | | interventio | ocumented | | | | | | n | in this | | | | | | | visit | + + +--------+--------+ + + | HH SN Medication | Medication | | | 1 goal | 2 goal | | Management | Management | | Active | linked to | interventio | | Disciplines: | | 020 | | scheduled/d | ns | | Usp | | | | ocumented | scheduled/d | | | | | | interventio | ocumented | | | | | | n | in this | | | | | | | visit | + + +--------+--------+ + + | HH SN Urinary | | | | 1 goal | 2 goal | | Elimination | | | Active | linked to | interventio | | Disciplines: | | 020 | | scheduled/d | ns | | Usp | | | | ocumented | scheduled/d [...] | + + +--------+-------+ + | HH SN ALTERATION | HH SHARED DIABETIC | | No | | | IN COMFORT | FOOT CARE | | | | | Description: The | | | | | | patient and/or | | | | | | caregiver will | | | | | | verbalize | | | | | | understanding of | | | | | | proper diabetic foot | | | | | | care. The | | | | | | patient's feet will | | | | | | remain absent of new | | | | | | or worsening skin | | | | | | complications | | | | | | related to diabetes. | | | | | | | [...] | + + +--------+-------+ + | HH PAIN | HH SHARED PAIN | | No | | | Description: The | | | | | | patient will rate | | | | | | generalized pain at | | | | | | 3/10 or less. | | | | | | Outcomes: The | | | | | | patient will be able | | | | | | to manage at home | | | | | | with decreased | | | | | | symptoms of pain. | | | | | + + +--------+-------+ + | HH SN MEDICATION | HH SN Medication | | No | | | MANAGEMENT | Management | | | | | Description: | | | | | | Patient and/or | | | | | | caregiver will | | | | | | demonstrate | | | | | | adherence to | | | | | | medication | | | | | | schedule/regime by | | | | | | end of episode of | | | | | | care. Patient | | | | | | and/or caregiver | | | | | | will verbalize | | | | | | understanding of | | | | | | medication use, | | | | | | actions, side | | | | | | effects, and when to | | | | | | report to skilled | | | | | | nurse/physician by | | | | | | end of episode of | | | | | | care. | | | | | + + +--------+-------+ + | HH SN URINARY | HH SN Urinary | | No | | | ELIMINATION | Elimination | | | | | Description: | | | | | | Patient and/or | | | | | | caregiver will | | | | | | verbalize knowledge | | | | | | of signs and | | | | | | symptoms of urinary | | | | | | infection/complicati | | | | | | ons and when to | | | | | | report to skilled | | | | | | nurse/physician by | | | | | | end of episode of Rn | | | | | | care. | | | | | + + +--------+-------+ + + + +--------+--------+ + | Intervention | Associated | Status | Varian | Visit Notes | | | Problem/Goal | | ce | | + + +--------+--------+ + | Diabetic Foot | Problem: HH SHARED | | | | | Assessment | DIABETIC FOOT | Comple | | | | Description: | CAREGoal: HH SN | jayden | | | | Assess lower | ALTERATION IN | | | | | extremities for | COMFORT | | | | | lesions/skin | | | | | | integrity, instruct | | | | | | patient and/or | | | | | | caregiver in proper | | | | | | diabetic foot care, | | | | | | and provide written | | | | | | information | | | | | | regarding diabetic | | | | | | foot care. | | | | | + + [...] | | + + +--------+--------+ + | Monitor and | Problem: SHARED | | | | | Address Pain | PAINGoal: PAIN | Comple | | | | Description: | | [place] | | | | Monitor and address | | | | | | pain through end of | | | | | | episode of care. | | | | | + + +--------+--------+ + | Assess knowledge | Problem: SN | | | | | of meds | Medication | Comple | | | | Description: | ManagementGoal: | jayden | | | | Assess the patient | SN MEDICATION | | | | | and/or caregiver's | MANAGEMENT | | | | | knowledge of | | | | | | medication | | | | | | administration, | | | | | | purpose, dosages, | | | | | | scheduling, side | | | | | | effects, food/drug | | | | | | interactions, and | | | | | | potential | | | | | | complications. | | | | | + + +--------+--------+ + | Instruct | Problem: SN | | | Instructed patient on | | medications | Medication | Comple | | medication | | Description: | ManagementGoal: | jayden | | administration, purpose, | | Instruct | SN MEDICATION | | | dosages, preparation, | | patient/caregiver in | MANAGEMENT | | | scheduling, side | | pain medication | | | | effects, food/drug | | administration for | | | | interactions, and | | optimal | | | | potential complications. | | results.Pre-medicate | | | | Current regimen and | | for dressing | | | | compliance reviewed with | | changes PRN. | | | | patient.The patient | | | | | | and/or caregiver | | | | | | verbalized understanding | | | | | | of all medication(s) as | | | | | | instructed: Yes | + + +--------+--------+ + | Assess for urinary | Problem: SN | | | Assessed urinary | | status and/or | Urinary | Comple | | status. See clinical | | infection | EliminationGoal: HH | jayden | | assessment in today's | | Description: | SN URINARY | | | contact. Signs and | | Assess for urinary | ELIMINATION | | | symptoms of infection | | status/infection.Ref | | | | present: No | | erence Only for | | | | | | determination of a | | | | | | catheter associated | | | | | | UTIA. When | | | | | | urinalysis or | | | | | | culture is not done, | | | | | | there must be two | | | | | | of the following 4 | | | | | | signs or symptoms:1. | | | | | | Fever OR chills2. | | | | | | Flank pain OR | | | | | | suprapubic pain OR | | | | | | tenderness OR | | | | | | frequency or | | | | | | urgency3. Worsening | | | | | | of mental OR | | | | | | functional status4. | | | | | | Changes is urine | | | | | | characterB. When | | | | | | urinalysis or | | | | | | culture is done | | | | | | there must be at | | | | | | least one of the | | | | | | following | | | | | | symptoms:1. Fever OR | | | | | | chills2. Flank pain | | | | | | OR suprapubic pain | | | | | | OR tenderness | | | | | + + +--------+--------+ + | HH Instruct in S | Problem: HH SN | | | | | and S bladder | Urinary | Comple | | | | infection | EliminationGoal: HH | jayden | | | | Description: | SN URINARY | | | | | Instruct patient | ELIMINATION | | | | | and/or caregiver in | | | | | | signs and symptoms | | | | | | related to the | | | | | | patient's urinary | | | | | | status to report to | | | | | | nurse/physician. | | | | | + + +--------+--------+ + documented in this encounter"
--- OUTSIDE RECORDS SUMMARY | ~2020-01-23 | XMS | Encounter Summary ---
Demographics + + + | Address | [address] | | | [place] [address] | + + + | Home Phone | | + + + | Preferred Language | Unknown | + + + | Marital Status | | + + + | Scientology Affiliation | Unknown | + + + | Race | Unknown | + + + | Ethnic Group | Unknown | + + + Author + + + | Author | [facility] | | | and [place] | + + + | Organization | [facility] | | [...] [place], | | | | | [place] [address] | | + + + + + | Linda Roman | ECON | Unknown | | + + + + + Care Team Providers + +------+ + | Care Sql Bi Developer Name | Role | Phone | + +------+ + | Alyssa Joseph | PCP | | + +------+ + Reason for Visit +---------+--------+ + | Reason | Onset | Comments | | | Date | | +---------+--------+ + | Results | 01/03/ | MCT results | | | 2020 | | +---------+--------+ + Encounter Details +--------+ + + + + | Date | Type | Department | Care Team | Description | +--------+ + + + + | 01/03/ | Telephone | [facility] | Marie | [facility] | | 2019 | | CARDI[facility]Y [facility] | Canelo Arce MD 64 | results) | | | | [address] | [address] | | | | | [id number] [place] | [address] | | | | | [place] | [address] | | | | | [address] | | | | | | [phone] | | | +--------+ + + + [...] this encounter Miscellaneous Notes Telephone Encounter - Emi Batista RN - 01/06/2020 10:00 AM PDTCalled patient with MCT res ults. Monitor shows Atrial Fibrillation with RVR and 4 second pauses during sleep. Patient a dvised to keep apt with Dr. York on 01-14-2020. Patient verbalized understanding of instruct ions. elephone Encounter - Emi Batista RN - 01/04/2020 10:51 AM PDTNo answer, no VM set up elephone Encounter - Emi Batista RN - 020 7:34 AM PDTPlease call with event monitor results. She had pauses up to 4 seconds whe n she was sleeping but also A. fib with rates as high as 130, so it is likely she will need a pacemaker, hopefully a biventricular pacemaker. He has an appointment to see Dr. Jaylen olmedo 01/13. I will send him a message to give them heads up about this as well. 1. The patient had the monitor from 11/27/2019 until 12/26/2019. Asymptomatic baseline tr ansmission showed sinus rhythm with heart rate 70 bpm. 2. On 12/04/2019 in the charity fundraiser hours when the patient was probably sleeping, there were 3 pauses of 4.0, 3.5, and 3.1 seconds in the midst of the patient being in course atria l fibrillation. A. fib rates were in the 110-130 range around that time. 3. On 12/06/2019, there was another episode of atrial fibrillation with heart rate 130 bpm , and again on 12/06. Least one strip showing atrial flutter occurred on 12/06 as well. 4. No symptoms reported, so it appears that none of these events were symptomatic. 5. Two runs of nonsustained VT lasting 6 beats were seen on 12/08. 6. No further pauses were seen after the patient's metoprolol dose was decreased on 12/07. Thanks, Canelo Salazar MD, FAC 7:3 4 AM PDTdocumented in this encounter Plan of Treatment [...] | | | | | [place] [address] | | | | | | [phone] | | | | | | | | +--------+---------+ + + + documented as of this encounter Visit Diagnoses Not on filedocumented in this encounter"
--- OUTSIDE RECORDS SUMMARY | ~2020-01-23 | XMS | Encounter Summary ---
Demographics + + + | Address | [address] | | | [place] [address] | + + + | Home Phone | | + + + | Preferred Language | Unknown | + + + | Marital Status | | + + + | Jainism Affiliation | Unknown | + + + | Race | Unknown | + + + | Ethnic Group | Unknown | + + + Author + + + | Author | [facility] | | | and [place] | + + + | Organization | [facility] | | | [...] + | Mimi Bauman | ECON | [place], | | | | | [place] [address] | | + + + + + | Linda Roman | ECON | Unknown | | + + + + + Care Team Providers + +------+ + | Care [place] Protection Maintainer Name | Role | Phone | + +------+ + PCP | Unavailable | + +------+ + Encounter Details +--------+ + + + + | Date | Type | Department | Care Team | Description | +--------+ + + + + | 09/24/ | Hospital | [facility] | Sherrill Barnes MD | New onset atrial | | 2015 - | Encounter | [facility] | [address] | fibrillation (FORMERLY [facility]); | | | | CARE FLOOR [address] | [place] [address] | CHF (congestive | | 10/01/ | | [address] | [phone] | heart failure) | | 2014 | | [place], [place] | | (FORMERLY [facility]); NSTEMI | | | | [address] | | (non-ST elevated | | | | [phone] | | myocardial | | | | | | infarction) ([facility]LY [facility]) | +--------+ + + + + Social [...] might be different from th e original. Discharge Summaries by Sherrill Barnes MD at 10/02/14 2451 Author: Sherrill Barnes MD Service: Hospitalist Author Type: Physician Filed: 10/03/14 1626 Date of Service: 10/02/141551 Status: Signed Medical Receptionist Biller: Sherrill Barnes MD (Physician) [facility] Service: Hospitalist Discharge Summary Date of Admission: 09/24/2014 Date of Discharge: 10/01/2014 Discharge Physician: Sherrill Barnes MD Treatment Team: Consulting Physician: Heidy Ceja MD Admitting Provider: Sherrill Barnes MD [...] Significant Diagnostic Studies: -ray Chest 1 View [[id number]] Resulted: 09/25/14 0748 Order Status: Completed Updated: [...] the need for an AICD. Read by HEIDY CEJA MD 09/30/2014 09:06 A F HISTORY OF PRESENTATION: Yumiko Peguero is a 78 y.o. female who presented with Afib RVR and CHF please refer to H& P and consult notes for details. HOSPITAL COURSE: 1Afib RVR / P-Afib and NSTEMI with acute sys CHF/severe MR s/p cardiac cath by c ontinue continue plavix 75 mg daily and [...] are Mon- Fri 7:30am-4:00pm, Call as needed, Gear Lapper Willow Wheatley and Patient Navigator Lisset. Heidy Ceja MD [facility] [place] [address] Schedule an appointment as soon as possible for a visit in 2 week(s) [place] [address] [place] [address] Follow up on 10/06/2014 Please go to follow-up appointment at SaturdayOctober 06 at 2:00pm. Dr. Guillory is shu ents new primary care physician and will follow patients INR levels as well. Eva An MD [facility] [address] [place] [address] Medication List START taking these medications clopidogrel [...] are the prescriptions that you need to shrimp picker. You may get the following medications [...] Note by Marcy Sosa RN at 10/01/14 2595 Author: Marcy Sosa RN Service: (none) Author Type: Registered Nurse Filed: 10/01/14 7995 Date of Service: 10/01/141229 Status: Signed Medical Receptionist Biller: Marcy Peot, RN (Registered Nurse) Pt discharged to home [...] Case Management by MOLLY Medina at 10/01/14 0817 Author: MOLLY Medina Service: (none) Author Type: Electrical Engineering Technologist Filed: 10/01/14 1142 Date of Service: 10/01/14845 Status: Addendum Medical Receptionist Biller: MOLLY Medina (Electrical Engineering Technologist) Related Notes: Original Note by MOLLY Medina (Electrical Engineering Technologist) filed at 10/01/14 0948 CM met w/ pt re: d/c planning. Pt reports she would like Dr Guillory to follow INR. CM le message for Megha re: INR follow up [...] Progress Notes by Sherrill Barnes MD at 09/30/14 1658 Author: Sherrill Barnes MD Service: Hospitalist Author Type: Physician Filed: 09/30/141845 Date of Service: 09/30/141839 Status: Signed Medical Receptionist Biller: Sherrill Barnes MD (Physician) [facility] Service: Hospitalist Progress Note Hospital Day: LOS: [...] Value Date HGBA1C 6.3* 09/25/2014 Results for YUMIKO PEGUERO ( ) as of 09/25/2014 17:01 [...] viability study for further evaluation. Read by HEIDY CEJA MD 09/25/2014 05:25 P ECHO YAQUELIN [...] the need for an AICD. Read by HEIDY CEJA MD 09/30/2014 09:06 A PROBLEM LIST [...] Case Management by MOLLY Shields at 09/30/14 7922 Author: MOLLY Shields Service: (none) Author Type: Electrical Engineering Technologist Filed: 09/30/14 2154 Date of Service: 09/30/140 Status: Addendum Medical Receptionist Biller: MOLLY Shields (Electrical Engineering Technologist) Related Notes: Original Note by MOLLY Shields (Electrical Engineering Technologist) filed at 09/30/14 8575 Cm met with patient to discuss discharge planning and assist with setting up primary care a ppointment and identify who will follow her INR levels. [facility] a nd requested assistance transferring care to Dr. Guillory from her current provider. Cm call ed [facility] clinic and patient accepted to be seen by Dr. Guillory. [facility] will also f ollow the INR level. Megha; coordinator for Dr. Guillory advised to call at time of dischar for coumadin follow up and primary care appointment. She advised it would not be problema tic getting patient in within a few days of discharge. DCP 1. Home with family [facility]. [facility] 3. CM to call at time of discharge to schedule coumadin f/u and primary care appt. [facility] Rstseq-[phone] Sherrill Reed MD - 09/29/2014 3:41 PM PDTFormatting of this note might be different from the origi nal. Progress Notes by Sherrill Barnes MD at 09/29/141540 Author: Sherrill Barnes MD Service: Hospitalist Author Type: Physician Filed: 09/29/142122 Date of Service: 09/29/141540 Status: Addendum Medical Receptionist Biller: Sherrill Barnes MD (Physician) Related Notes: Original Note by Sherrill Barnes MD (Physician) filed at 09/29/14 6949 [facility] Service: Hospitalist Progress Note Hospital Day: LOS: [...] Value Date HGBA1C 6.3* 09/25/2014 Results for YUMIKO PEGUERO ( ) as of 09/25/2014 17:01 [...] viability study for further evaluation. Read by HEIDY CEJA MD 09/25/2014 05:25 P ECHO YAQUELIN [...] Full Code Sherrill Barnes MD 09/29/2014 Amaury, Heidy - 09/30/19 9:01 AM PDT Progress Notes by Heidy Ceja MD at 09/29/14 0901 Author: Heidy Ceja MD Service: Cardiology Author Type: Physician Filed: 09/29/14 1222 Date of Service: 09/29/14 0901 Status: Signed Medical Receptionist Biller: Heidy Ceja MD (Physician) Related Notes: Original Note by Heidy Ceja MD (Physician) filed at 09/29/14 0908 [facility] Service: Cardiology Progress Note Name of School Psychological Examiner: Heidy Ceja MD I have seen the patient [...] left anterior fascicular block, normal P wave, LA interval. No significant T waves. ST-T segment consistent with ischemia, prolonge d QT. September 24, 2014, at [facility] showed atrial fibrillation with rapid ventricular r [...] discharged on Saturday. Code Status: Full Code Heidy Ceja MD 09/29/2014 Sherrill Reed MD - 09/29/19 4:07 PM PDT Progress Notes by Sherrill Barnes MD at 09/28/14 5080 Author: Sherrill Barnes MD Service: Hospitalist Author Type: Physician Filed: 09/28/14 1611 Date of Service: 09/28/14 1607 Status: Signed Medical Receptionist Biller: Sherrill Barnes MD (Physician) [facility] Service: Hospitalist Progress Note Hospital Day: LOS: [...] Value Date HGBA1C 6.3* 09/25/2014 Results for YUMIKO PGEUERO ( ) as of 09/25/2014 17:01 Ref. [...] viability study for further evaluation. Read by HEIDY CEJA MD 09/25/2014 05:25 P ECHO YAQUELIN [...] Notes by Sherrill Barnes MD at 09/27/14 1654 Author: Sherrill Barnes MD Service: Hospitalist Author Type: Physician Filed: 09/27/14 1700 Date of Service: 09/27/141653 Status: Addendum Medical Receptionist Biller: Sherrill Barnes MD (Physician) Related Notes: Original Note by Sherrill Barnes MD (Physician) filed at 09/27/14 3770 [facility] Service: Hospitalist Progress Note Hospital Day: LOS: [...] Value Date HGBA1C 6.3* 09/25/2014 Results for YUMIKO PEGUERO ( ) as of 09/25/2014 17:01 [...] viability study for further evaluation. Read by HEIDY CEJA MD 09/25/2014 05:25 P ECHO YAQUELIN [...] mg/kg BID and stop coumadin for now,awaiting dr.chuagle garcia. meds.continue BBlocker,ASA,co zaar,statin,lasix. 2.DM2 stable BG continue [...] Author: Lisset Boss Service: (none) Author Type: Energy Audit Advisor Filed: 09/27/14 1013 Date of Service: 09/27/14 1012 Status: Signed Medical Receptionist Biller: Lisset Boss (Computational Chemist) GPS enrolled, Pt would not like assistance scheduling, we will ask her again at time of st phone call. URHender son, LAURA Potter - 09/26/2014 4:20 PM PDTFormatting of this note might be different fr om the original. Progress Notes by Nadia Lewis PA-C at 09/26/14 1620 Author: Nadia Lewis PA-C Service: Cardiology Author Type: Physician Sr. Manager Marketing - Certified Filed: 09/29/14 1130 Date of Service: 09/26/14 1620 Status: Attested Medical Receptionist Biller: Nadia Lewis PA-C (Physician Sr. Manager Marketing - Certified) Related Notes: Original Note by Nadia Lewis PA-C (Physician Sr. Manager Marketing - Certified ) filed at 09/28/14 1637 Cosigner: Heidy Ceja MD at 09/29/14 1227 Attestation signed by Heidy Ceja MD at 09/29/14 1227 I saw and examined the patient with Nadia Lewis PA-C. I have reviewed the tests per formed. I agree with the assessment and plan as documented in the note. Heidy Ceja MD 09/29/2014 [facility] Service: Cardiology Progress Note Name of School Psychological Examiner: Heidy Ceja MD I have seen the patient [...] anterior fasc icular block, normal P wave, LA interval. No significant T waves. ST-T segment consistent wi th ischemia, prolonged QT. September 24, 2014, at [facility] reviewed personally and showed atrial fibrillation with [...] nding artery and mid left circumflex artery, [place] FFR for the right coronary artery and [...] Code Nadia Lewis PA-C 09/28/2014 Kelsi Montilla wt MD Desiree - 09/26/2014 4:18 PM PDTFormatting of this note might be different from the or iginal. Progress Notes by Desiree Jean MD at 09/26/14 9340 Author: Desiree Jean MD Service: (none) Author Type: Physician Filed: 09/26/14 6228 Date of Service: 09/26/14 1618 Status: Signed Medical Receptionist Biller: Desiree Jean MD (Physician) [facility] Service: Hospitalist Progress Note Pt: Yumiko Peguero AGE/SEX: 78 y.o. female : 1935 ROOM: [facility]/44-1 REQUESTING PROVIDER: Desiree Jean MD TODAY'S DATE: [...] time. No focality Skin: Skin is dr casas. Psychiatric: has a normal mood and affect. Behavior is normal. Judgment and thought conten t normal.Cognition intact. LABS: Recent Labs Lab 09/26/14 03509/25/1439909/24/14 1615 WBC 7.80 7.72 6.79 HGB 13.5 [...] -- -- 26 Phosphorus: Recent Labs Lab 09/25/14 0400 PHOS 4.2 Recent Labs Lab 09/25/14 040 MG 2.1 No results for input(s): AMYLASE in the last 168 hours. No results for input(s): PHART, PO2ART, GZF5AVX, D9MSRPJT, BEART in the last 168 hours. Recent [...] recent event need recheck in 3-4 w [place] and [place] [place] as out patient on anticoagulation lovenox with coumadin INR 1.1 today F/ up INR in am NSTEMI with acute sys CHF Had cardiac raisa on Non-ST elevation myocardial infarction with severe systolic dysfunction with ejection fraction 30% to 35%, and severe mitral valve regurgitation.. 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 YAQUELIN Review F/ up hotel houseman recommendation on ASA Statin lasix betablocker and [...] Author: MOLLY Rowley Service: (none) Author Type: Vascular Specialists Filed: 09/26/148 Date of Service: 09/26/141216 Status: Signed Medical Receptionist Biller: MOLLY Rowley (Vascular Specialists) Pt is 78 years old and independent at home. Pt is usually able to perform daily living acti vities including personal hygiene, grooming, dressing, feeding, ambulation and bowel and venkatesh dder control. Pt currently has no resource concerns at this time. CM will continue to follow as needed. Discharge Plan: Home. Sp [facility] 09/26/141216 Discharge Planning Evaluation Admitting Diagnosis SOB/palpitations [...] Alternative housing needed: None Anticipated DCP: Home URConlayton Khan, Provider Unknown - 09/26/2014 8:33 AM PDT Nurse Progress Note by Taylor Corona RN at 09/26/14832 Author: Taylor Corona RN Service: (none) Author Type: Registered Nurse Filed: 09/26/1435 Date of Service: 09/26/14832 Status: Signed Medical Receptionist Biller: Taylor Corona RN (Registered Nurse) YAQUELIN done. Pt anne marie well. Versed 3mg iv and fentanyl 50 ug iv given for procedure. Pt arous es easily, vss. Report to Chanel rn. Will cont. To do vs every 15 min as per routine, until fully awake. Taking fluids well with difficulty. URConver [place] Transaction, Provider Unknown - 09/26/2014 5:22 AM PDT Nurse Progress Note by Patria Seals RN at 09/26/14521 Author: Patria Seals RN Service: (none) Author Type: Registered Nurse Filed: 09/26/14650 Date of Service: 09/26/14521 Status: Addendum Medical Receptionist Biller: Patria Seals RN (Registered Nurse) Related Notes: Original Note by Patria Seals RN (Registered Nurse) filed at 09/26/14 053 2 0520. Pt converted to A-Fib, HR 100-140's. Pt asymptomatic. VSS. Dr. Rubin advised to mo nitor for 30 minutes to 1 hour to see if pt converts back to NS. Will consider digoxin if n ecessary. Will continue to monitor REBECA [place] 0648. Patient's HR is better controlled; A-Fib 80-90's. Pt is scheduled for a YAQUELIN at [address] Rubin advised to continue to monitor and hotel houseman to treat if necessary. REBECA [place] onver [place] Transaction, Provider Unknown - 09/25/2014 9:07 PM PDT Nurse Progress Note by Asuncion Carmona RN at 09/25/142106 Author: Asuncion Carmona RN Service: (none) Author Type: Registered Nurse Filed: 09/25/142107 Date of Service: 09/25/142106 Status: Signed Medical Receptionist Biller: Asuncion Carmona RN (Registered Nurse) 2044: Pt [...] Progress Notes by Sherrill Barnes MD at 09/25/14 5131 Author: Sherrill Barnes MD Service: Hospitalist Author Type: Physician Filed: 09/25/141712 Date of Service: 09/25/141657 Status: Addendum Medical Receptionist Biller: Sherrill Barnes MD (Physician) Related Notes: Original Note by Sherrill Barnes MD (Physician) filed at 09/25/141711 [facility] Service: Hospitalist Progress Note Hospital Day: LOS: [...] 37* >40 mg/dL Final Testing performed at [address] [address] Triglycerides Date Value Ref Range Status 09/25/2014 122 <150 mg/dL Final Testing performed at [address] [address] LDL CALC Date Value Ref Range Status 09/25/2014 60 <100 mg/dL Final Testing performed at [address] [address] CHOLESTEROL Date Value Ref Range Status 09/25/2014 121 <200 mg/dL Final Testing performed at [address], [place] [address] Lab Results Component Value Date HGBA1C 6.3* 09/25/2014 Results for YUMIKO PEGUERO ( ) as of 09/25/2014 17:01 [...] Date of Service: 09/25/14 1610 Status: Signed Medical Receptionist Biller: Sophie Maldonado RN (Registered Nurse) Pt off the floor to cath lab nurse for angiogram. Bilateral groin prepped. NPO since 1044. Report given to REBECA Bhakta w/ cath lab nurse. onver [place] Transaction, Provider Unknown - 09/25/2014 1:12 PM PDT Progress Notes by Jayda Blue RD at 09/25/14 1312 Author: Jayda Blue RD Service: (none) Author Type: Registered Dietitian Filed: 09/25/14 1312 Date of Service: 09/25/14 1312 Status: Signed Medical Receptionist Biller: Jayda Blue RD (Registered Dietitian) 09/25/14 1256 [...] Estimated Energy Needs Total Energy Estimated Needs 4563-7714 kcals Method for Estimating Needs 25-30 kcal/kg [...] Service: (none) Author Type: Registered Nurse Filed: 09/25/14547 Date of Service: 09/25/14543 Status: Signed Medical Receptionist Biller: Rosanne Tidwell RN (Registered Nurse) Pt was [...] 09/24/142038 Date of Service: 09/24/142038 Status: Signed Medical Receptionist Biller: Wayne Zhang RPH (Pharmacist) Note ccl 58.5ml/min meds reviewed Pharmacy will follow [facility] 2038 docume nted in this encounter H&P Notes Sherrill Barnes MD - 09/24/2014 5:25 PM PDTFormatting of this note might be different from th e original. H&P by Sherrill Barnes MD at 09/24/141724 Author: Sherrill Barnes MD Service: Hospitalist Author Type: Physician Filed: 09/24/142042 Date of Service: 09/24/141724 Status: Signed Medical Receptionist Biller: Sherrill Barnes MD (Physician) [facility] Service: Hospitalist Admission History & Physical Date of Admission: 09/24/2014 Requesting Physician: , Hospitalist Reason for Admission: Afib RVR/CHF History Obtained From: patient, chart review CHIEF COMPLAINT: SOB/palpitations HISTORY OF PRESENT ILLNESS The patient is a 78 y.o. female with significant past medical history listed below in PMHx who presents as a transfer form [facility] via ER provider note"The patient complains of dysp luis felipe, paliptations. Onset of symptoms was last night, with an intermittent course since that time. The symptoms are described to be of moderate severity. The patient describes the quali ty and location of the symptoms as the following: dyspena since last night, went to [facility]' in atrial fibrillation. Given cardizem with conversion to NSR, but reports that she go es "in and out of a fib" since. No chest pain. Troponin was 0.011, BNP 750, CXR showed cardi omegaly. New onset a fib and CHF. The patient also complains of no recent illness" In [facility] ER she had negative first set of cardiac enzymes,intermittnet afib on tele HR up to 140 resting,stable BP,she is on 2 L O2 sat 98%,denies CP. She also denies any recent blee ding or trauma/fall. Stable H&H. She was started on Cardizem gtt again in ER. Denies fever,headache,blurry vision,syncope,N/V/D,urinary complaints or focal weakness or n umbness. REVIEW OF SYSTEMS A comprehensive review of systems was negative except for above HPI Past Medical History Diagnosis Date Coronary artery disease Old myocardial infarction Atrial fibrillation Hypertension Hyperlipidemia Diabetes mellitus, type 2 Asthma Past Surgical History Procedure Laterality Date Tubal ligation Hysterectomy Cardiac catheterization Coronary angioplasty with stent placement Not on File (Not in a hospital admission) History reviewed. No pertinent family history. History Social History Marital Status: Single Spouse Name: N/A Number of Children: N/A Years of Education: N/A Occupational History Not on file. Social History Main Topics Smoking status: Never Smoker Smokeless tobacco: Never Used Alcohol Use: No Drug Use: No Sexual Activity: Not on file Other Topics Concern Not on file Social History Narrative No narrative on file PHYSICAL EXAM BP 124/67 | Pulse 70 | Temp(Src) 97.3 F (36.3 C) (Oral) | Resp 16 | Ht 1.549 m (5' 1") | Wt 81.194 kg (179 lb) | BMI 33.84 kg/m2 | SpO2 98% General appearance: alert, appears stated age, cooperative, fatigued, no distress and moder ately obese Head: Normocephalic, without obvious abnormality, atraumatic Neck: no adenopathy, no carotid bruit, no JVD, supple, symmetrical, trachea midline and thy roid not enlarged, symmetric, no tenderness/mass/nodules Lungs: diminished breath sounds bibasilar and bilaterally Heart: irregularly irregular rhythm and fast Abdomen: soft, non-tender; bowel sounds normal; no masses, no organomegaly Extremities: edema 1+ and extremities , atraumatic, no cyanosis. Pulses: 2+ and symmetric Neurologic: AXOX3 ,Grossly normal did not test due to risk of falling DATA CBC: Lab Results Component Value Date WBC 6.79 09/24/2014 RBC 4.88 09/24/2014 HGB 14.2 09/24/2014 HCT 43.7 09/24/2014 MCV 89.4 09/24/2014 MCH 29.2 09/24/2014 MCHC 32.6 09/24/2014 RDW 45.5 09/24/2014 PLT 247 09/24/2014 MPV 7.5 09/24/2014 DIFFTYPE AUTOMATED 09/24/2014 CMP: Lab Results Component Value Date NA 143 09/24/2014 K 3.6 09/24/2014 CL 109 09/24/2014 CO2 25 09/24/2014 ANIONGAP 13 09/24/2014 GLUF 114* 09/24/2014 BUN 9 09/24/2014 CREATININE 0.79 09/24/2014 BCR 11 09/24/2014 CA 8.8 09/24/2014 PROT 7.2 09/24/2014 ALB 3.7 09/24/2014 GLOB 3.5 09/24/2014 BILITOT 0.8 09/24/2014 ALP 104 09/24/2014 AST 26 09/24/2014 ALT 31 09/24/2014 EGFR >60 09/24/2014 Results for YUMIKO PEGUERO ( ) as of 09/24/2014 17:30 Ref. Range 09/24/2014 16:18 POC CARDIAC TROPONIN Latest Range: 0.00-0.10 ng/mL 0.08 Results for YUMIKO PEGUERO ( ) as of 09/24/2014 17:30 Ref. Range 09/24/2014 16:15 BRAIN NATRIURETIC PEPTIDE Latest Range: 0-100 pg/mL 647 (H) Lab Results Component Value Date CKTOTAL 42 09/24/2014 CKMB 1.1 09/24/2014 CKMBINDEX 2.6 09/24/2014 EKG Sinus tachycardia with Premature atrial complexes Left axis deviation Incomplete left bundle branch block T wave abnormality, consider lateral ischemia Abnormal ECG No previous ECGs available CXR Pulmonary congestion,cardiomegaly.official read pending PROBLEM LIST Principal Problem: New onset a-fib RVR Active Problems: CHF (congestive heart failure) DM (diabetes mellitus) 2 CAD (coronary artery disease) s/p 1 stent HTN (hypertension) Other and unspecified hyperlipidemia Obesity, unspecified SOB (shortness of breath) Legs swelling Elevated brain natriuretic peptide (BNP) level ASSESSMENT & PLAN 1.SOB and palpitations with hx previous NM s/p 1 stent in ,most likely due to new ons et Afib and developing CHF, will admit to acute care with tele monitor ,continue metoprolol and ASA from home meds and Cardizem gtt,she has a mod-high risk of CVA per CHADs score and s he has agreed and accepted the risks of bleeding associated with heparin gtt,family at bed s constance agrees. Check 2 more sets of cardiac enzymes,order ECHO,CXR and lasix.check TSH and UA,m ag and phos levels, repeat BNP in AM. 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 2.DM2 continue home meds but hold metformin in case she needs a cardiac cath,monitor BG samir ck A1c. 3.HTN continue home meds and monitor closely on Cardizem gtt 4.Hyperlipidemia continue statins, check lipid panel. 5.obesity she is counseled on weight loss and life style modification,she understands. 6.GI px Pepcid 7.DVT px covered with heparin gtt and SCDs Disposition: Admitted i feel she has a high risk of cardiac decompensation/CVA/Afib RVR an d the need for gtt/tele for control. Code Status: DNR/DNI per her request Primary Care Physician: EVA Barnes MD 09/24/2014 documented in this encou nter Consult Notes Destiney Garcia MD - 09/28/2014 12:47 PM PDTFormatting of this note might be different fro m the original. Consult* by Destiney Garcia MD at 09/28/14 1243 Author: Destiney Garcia MD Service: Cardiac, Thoracic, and Vascular Surgery Author Type: Physician Filed: 10/09/14 1238 Date of Service: 09/28/14 1247 Status: Signed Medical Receptionist Biller: Destiney Garcia MD (Physician) [facility] Service: Cardiothoracic Surgery Initial Consult Note Date of Admission: 09/24/2014 Reason for Consultation: Consideration for MVR and surgical revascularization Requesting Physician: Dr Ceja, Cardiology History Obtained From: patient, chart review CHIEF COMPLAINT: Chest pain HISTORY OF PRESENT ILLNESS The patient is a 78 y.o. female with significant past medical history of CAD, AF, HTN, hype rlipidemia, DM who presented to an ouside facility with worsening SOB, palpitation, and REVIEW OF SYSTEMS Review of Systems Constitutional: Positive for fatigue. Negative for fever, activity change and unexpected we ight change. HENT: Negative for dental problem, ear discharge, nosebleeds, tinnitus and voice change. Respiratory: Positive for shortness of breath. Negative for cough, chest tightness and whee zing. Cardiovascular: Positive for chest pain and palpitations. Negative for leg swelling. Gastrointestinal: Negative for nausea, vomiting, abdominal pain, diarrhea, constipation, bl ood in stool, abdominal distention and anal bleeding. Genitourinary: Negative for hematuria, vaginal bleeding and menstrual problem. Musculoskeletal: Negative for myalgias, back pain, joint swelling, neck pain and neck stiff ness. Skin: Negative for pallor, rash and wound. Neurological: Negative for dizziness, tremors, seizures, syncope, facial asymmetry, speech difficulty, weakness, light-headedness and headaches. Hematological: Negative for adenopathy. Does not bruise/bleed easily. Psychiatric/Behavioral: Negative for suicidal ideas, behavioral problems, confusion and yvonne tation. The patient is not nervous/anxious. Past Medical History Diagnosis Date Coronary artery [...] (See Comments) Pt states "I dont know" Prescriptions prior to admission Medication Sig Dispense Refill amLODIPine (NORVASC) 5 MG tablet Take 5 mg by mouth daily. aspirin 81 MG EC tablet Take 81 mg by mouth daily with breakfast. atorvastatin (LIPITOR) 10 MG tablet Take 10 mg by mouth nightly. ezetimibe (ZETIA) 10 MG tablet Take 10 mg by mouth daily. fexofenadine (NEENA) 180 MG tablet Take 180 mg by mouth daily. fluticasone (FLOVENT DISKUS) 50 MCG/BLIST diskus inhaler Inhale 1 puff into the lungs 2 (two) times daily. glipiZIDE (GLUCOTROL) 10 MG 24 hr tablet Take 10 mg by mouth daily. losartan (COZAAR) 25 MG tablet Take 25 mg by mouth daily. metFORMIN (GLUCOPHAGE) 500 MG tablet Take 500 mg by mouth 2 (two) times daily with meal s. metoprolol (TOPROL-XL) 25 MG 24 hr tablet Take 25 mg by mouth daily. saxagliptin (ONGLYZA) 5 MG tablet Take 5 mg by mouth daily. Scheduled Medications aspirin 81 mg Oral Daily [...] AND* * sodium chloride 0.9 %, zolpidem History reviewed. No pertinent family history. History Social History Marital Status: Single Spouse Name: N/A Number of Children: N/A Years of Education: N/A Occupational History Not on file. Social History Main Topics Smoking status: Never Smoker Smokeless tobacco: Never Used Alcohol Use: No Drug Use: No Sexual Activity: Not on file Other Topics Concern Not on file Social History Narrative No narrative on file History Smoking status Never Smoker Smokeless tobacco Never Used History Alcohol Use No History Drug Use No PHYSICAL EXAM Vital Signs: BP 120/58 | Pulse 63 | Temp(Src) 97.6 F (36.4 C) (Oral) | Resp 18 | Ht 1.549 m (5' 1") | Wt 80.1 kg (176 lb 9.4 oz) | BMI 33.38 kg/m2 | SpO2 99% | ? No Temp: [97.5 F (36.4 C)-98.2 F (36.8 C)] 97.6 F (36.4 C) (09/28 1121) BP: (103-135)/(57-81) 120/58 mmHg (09/28 1121) Heart Rate: [63-76] 63 (09/28 1121) Resp: [16-18] 18 (09/28 1121) SpO2: [94 %-100 %] 99 % (09/28 1121) Weight: [80.1 kg (176 lb 9.4 oz)] 80.1 kg (176 lb 9.4 oz) (09/28 256) Physical Exam Constitutional: She is oriented to person, place, and time. She appears well-developed and well-nourished. HENT: Head: Normocephalic. Neck: No JVD present. Cardiovascular: Normal rate, regular rhythm and intact distal pulses. Murmur heard. Wallace systolic murmur best heard at the apex, radiating to the left axilla. Pulmonary/Chest: Breath sounds normal. Abdominal: Soft. Bowel sounds are normal. Musculoskeletal: Normal range of motion. She exhibits no edema. Neurological: She is alert and oriented to person, place, and time. Vitals reviewed. DATA CBC: Lab Results Component Value Date [...] 09/27/2014 ALT 17 09/27/2014 EGFR >60 09/28/2014 PROBLEM LIST Principal Problem: NSTEMI (non-ST elevated myocardial infarction) Active Problems: New onset a-fib RVR CHF (congestive heart failure) DM (diabetes mellitus) 2 CAD (coronary artery disease) s/p 1 stent HTN (hypertension) Other and unspecified hyperlipidemia Obesity, unspecified SOB (shortness of breath) Legs swelling Elevated brain natriuretic peptide (BNP) level Severe Mitral regurgitation Pulmonary HTN ASSESSMENT & PLAN 78 year old female presents with chest pain, was ruled in for NSTEMI. Coronary angiogram sh owed severe two vessel disease with occluded LAD and significant disease in the OM. Echo flex wed severe MR with impaired LV function and an Ef of 25%. In view of severe MR with poor EF, patient is not a surgical candidate.patient will probabl y benefit from Shelly clip and PCI. Will sign off please call with questions. Code Status: Full Code Primary Care Physician: EVA AN Thank you for allowing me to participate in the care of this patient. Destiney Garcia MD 09/28/2014 y, Heidy - 09/25/2014 12:37 PM PDT Consults by Heidy Ceja MD at 09/25/14 1447 Author: Heidy Ceja MD Service: Cardiology Author Type: Physician Filed: 09/26/14 1310 Date of Service: 09/25/14 1237 Status: Signed Medical Receptionist Biller: Heidy Ceja MD (Physician) Related Notes: Original Note by Heidy Ceja MD (Physician) filed at 09/25/14 0661 Consult Orders: 1. Inpatient consult to Cardiology [[id number]] ordered by Sherrill Barnes MD at 09/25/14 1137 [facility] Service: Cardiology Initial Consult Note Name of School Psychological Examiner: Heidy Ceja MD Date of Admission: 09/24/2014 Reason for Consultation: NSTEMI, AFib Requesting Physician: Dr. Barnes, Hospitalist History Obtained From: patient CHIEF COMPLAINT: SOB since HISTORY OF PRESENT ILLNESS: Ms. Peguero is a 78-year-old lady who went to [facility] clinic complaining of shortness of breath since night. Shortness of breath happened at rest, aggravated by lying down, eased by sitting on the edge of the bed, associated with fluttering of the heart that has b een going on for the last 1 week. 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 She was found in atrial f ibrillation with rapid ventricular response and told that she was having congestive heart fa ilure. She was referred to our hospital and with IV Cardizem she converted back to normal si nus rhythm. She was found to have mild elevation of the troponin and elevated BNP. When I sa w the patient, she was feeling better and denied any history of shortness of breath. During that time, she did not complain of any chest pain. She did have myocardial infarction in 199 7. At that time, she needed a stent but that feeling was different and she felt chest pain. REVIEW OF SYSTEMS Negative except for pertinent items noted in HPI. Review of Systems Constitutional: Fatigue. HENT: Negative for nosebleeds. Eyes: Negative for visual disturbance. Respiratory: Negative for cough. Shortness of breath. Cardiovascular: Negative for chest pain. Palpitations. No leg swelling. Gastrointestinal: Negative for nausea, vomiting, abdominal pain and blood in stool. Genitourinary: Negative for hematuria. Musculoskeletal: Negative for myalgias, back pain and arthralgias. Skin: Negative for color change. Neurological: Negative for dizziness, syncope and numbness. Hematological: Does not bruise/bleed easily. Psychiatric/Behavioral: The patient is not nervous/anxious. PAST MEDICAL & SURGICAL HISTORY Past Medical History Diagnosis Date Coronary artery disease Old myocardial infarction Atrial fibrillation Hypertension Hyperlipidemia Diabetes mellitus, type 2 Asthma Past Surgical History Procedure Laterality Date Tubal ligation Hysterectomy Cardiac catheterization Coronary angioplasty with stent placement MEDICATIONS Home Medications Prescriptions prior to admission Medication Sig Dispense Refill amLODIPine (NORVASC) 5 MG tablet Take 5 mg by mouth daily. aspirin 81 MG EC tablet Take 81 mg by mouth daily with breakfast. atorvastatin (LIPITOR) 10 MG tablet Take 10 mg by mouth nightly. ezetimibe (ZETIA) 10 MG tablet Take 10 mg by mouth daily. fexofenadine (NEENA) 180 MG tablet Take 180 mg by mouth daily. fluticasone (FLOVENT DISKUS) 50 MCG/BLIST diskus inhaler Inhale 1 puff into the lungs 2 (two) times daily. glipiZIDE (GLUCOTROL) 10 MG 24 hr tablet Take 10 mg by mouth daily. losartan (COZAAR) 25 MG tablet Take 25 mg by mouth daily. metFORMIN (GLUCOPHAGE) 500 MG tablet Take 500 mg by mouth 2 (two) times daily with meal s. metoprolol (TOPROL-XL) 25 MG 24 hr tablet Take 25 mg by mouth daily. saxagliptin (ONGLYZA) 5 MG tablet Take 5 mg by mouth daily. Inhospital Medications aspirin 81 mg Oral Daily with breakfast atorvastatin 10 mg Oral Nightly diltiazem 30 mg Oral 3 times per day enoxaparin 1 mg/kg Subcutaneous Q12H ezetimibe 10 mg Oral Daily famotidine 20 mg Oral BID fluticasone 1 puff Inhalation BID furosemide 40 mg Oral Daily glipiZIDE 10 mg Oral Daily losartan 25 mg Oral Daily metoprolol 25 mg Oral Daily saxagliptin 5 mg Oral Daily sodium chloride (PF) 10 mL Intravenous Q8H sodium chloride 0.9 % 10 mL Intravenous Q8H warfarin 5 mg Oral Daily Allergies Allergies Allergen Reactions Amoxicillin Other (See Comments) Pt states "I dont know" Azithromycin Other (See Comments) Pt states "I dont know" Clavulanic Acid Other (See Comments) Pt states "I dont know" Clindamycin Other (See Comments) Pt states "I dont know" Penicillins Other (See Comments) Pt states "I dont know" FAMILY HISTORY History reviewed. No pertinent family history. SOCIAL HISTORY History Social History Marital Status: Single Spouse Name: N/A Number of Children: N/A Years of Education: N/A Occupational History Not on file. Social History Main Topics Smoking status: Never Smoker Smokeless tobacco: Never Used Alcohol Use: No Drug Use: No Sexual Activity: Not on file Other Topics Concern Not on file Social History Narrative No narrative on file PHYSICAL EXAM Vital Signs: BP 132/76 | Pulse 75 | Temp(Src) 98.2 F (36.8 C) (Oral) | Resp 16 | Ht 1.549 m (5' 1") | Wt 81 kg (178 lb 9.2 oz) | BMI 33.76 kg/m2 | SpO2 94% | ? No Intake/Output Summary (Last 24 hours) at 09/25/14 1237 Last data filed at 09/25/14 0900 Gross per 24 hour Intake 751 ml Output 1070 ml Net -319 ml Constitutional: Well-developed. Neck: No JVD present. No thyromegaly present. Cardiovascular: Regular rhythm, S1 normal and S2 normal. No murmur heard. Pulses: Carotid pulses are 2+ on the right side, and 2+ on the left side. Radial pulses are 2+ on the right side, and 2+ on the left side. Pulmonary/Chest: Effort normal and breath sounds normal. No wheezes. No rales. Abdominal: Soft. No tenderness. Musculoskeletal: No edema. Neurological: Alert. No cranial nerve deficit. Skin: Warm and dry. DATA Recent Labs Lab 09/25/14 0400 NA 137 K 3.6 CO2 24 BUN 15 CREATININE 0.90 MG 2.1 Recent Labs Lab 09/25/14 0600 09/25/14 0021 09/24/14 1615 CKTOTAL -- -- 42 CKMB -- -- 1.1 CKMBINDEX -- -- 2.6 TROPONINI 0.115* 0.159* -- Recent Labs Lab 09/25/14 0400 WBC 7.72 HGB 14.0 HCT 43.0 MCV 89.5 PLT 238 Blood tests from [facility] on September 24, 2014, reviewed and showed: 1. CBC: White blood cell count 6.8, hemoglobin 13.9, platelet count 239. 2. Electrolytes: Urea 10, creatinine 0.77, sodium 140, potassium 3.5. 3. Liver function tests: Total protein 6.7, albumin 4.1, AST 25, ALT 24. 4. Troponin 0.011. 5. BNP 749. EKG: September 25, 2014, reviewed personally, showed sinus rhythm, heart rate 75, left anterior fasc icular block, normal P wave, LA interval. No significant T waves. ST-T segment consistent wi th ischemia, prolonged QT. September 24, 2014, at [facility] reviewed personally and showed atrial fibrillation with rapid ventricular response, heart rate 124, left anterior fascicular block, no signifi cant Q waves, ST-T segment consistent with ischemia, not different from the same changes i le at sinus rhythm. Prolonged QT. Last Echo: Last stress test: Last cath: Carotid US: AAA screening: Lower extremity US: [...] on IV Cardizem back to sinus rhythm. Preliminary report of the echocardiogram showed severe systolic dysfunction with at least moderate mitral valve regurgitation and akinesia of the a nterior wall. Although her elevated troponin might be supply/demand mismatch with the conges tive heart failure and significant tachycardia, but underlying coronary artery disease espec ially with the known coronary artery disease and significant drop in the ejection fraction, we need further evaluation for the underlying coronary artery anatomy with coronary angiogra m. Informed consent was obtained. The patient will be started on congestive heart failure medications. I am going to recommen d to stop her Cardizem and increase dose of metoprolol XL to 100 mg once a day. Continue wit h dose of losartan at 25 mg once a day. I agree with the oral warfarin with a target INR 2 o 3, in addition to her oral aspirin. Further recommendations to follow the heart catheterization. Thank you for allowing me to participate in the care of this patient. Code Status: DNR/DNI Primary Care Physician: EVA Ceja MD 09/25/2014 documented in this encount er ED Notes Conversion Transaction, Provider Unknown - 09/24/2014 8:12 PM PDTFormatting of this note m ight be different from the original. ED Notes by Ina Kumar RN at 09/24/142011 Author: Ina Kumar RN Service: (none) Author Type: Registered Nurse Filed: 09/24/142012 Date of Service: 09/24/142011 Status: Signed Medical Receptionist Biller: Ina Kumar RN (Registered Nurse) Floor rn states is on the way for pt. Pt /family informed Ina Kumar RN 09/24/142012 [place]ver [place] Transaction, Provider Unknown - 09/24/2014 7:27 PM PDT ED Notes by Ina Kumar RN at 09/24/14 192 Author: Ina Kumar RN Service: (none) Author Type: Registered Nurse Filed: 09/24/141926 Date of Service: 09/24/141926 Status: Signed Medical Receptionist Biller: Ina Kumar RN (Registered Nurse) Family at bedside. Ina Kumar RN 09/24/141926 [place] Transaction, Provider Unknown - 09/24/2014 7:27 PM PDT ED Notes by Ina Kumar RN at 09/24/141926 Author: Ina Kumar RN Service: (none) Author Type: Registered Nurse Filed: 09/24/141926 Date of Service: 09/24/141926 Status: Signed Medical Receptionist Biller: Ina Kumar RN (Registered Nurse) Patient is resting comfortably. Ina Kumar RN 09/24/141926 [place] Transaction, Provider Unknown - 09/24/2014 6:46 PM PDT ED Notes by Ina Kumar RN at 09/24/141845 Author: Ina Kumar RN Service: (none) Author Type: Registered Nurse Filed: 09/24/141845 Date of Service: 09/24/141845 Status: Signed Medical Receptionist Biller: Ina Kumar RN (Registered Nurse) 4rp lead rn called for pt transfer Ina Kumar RN 09/24/141845 [place] Transaction, Provider Unknown - 09/24/2014 6:02 PM PDT ED Notes by Ina Kumar RN at 09/24/141801 Author: Ina Kumar RN Service: (none) Author Type: Registered Nurse Filed: 09/24/141801 Date of Service: 09/24/141801 Status: Signed Medical Receptionist Biller: Ina Kumar RN (Registered Nurse) at bedside. Ina Kumar RN 09/24/141801 [place] Transaction, Provider Unknown - 09/24/2014 6:02 PM PDT ED Notes by Ina Kumar RN at 09/24/141801 Author: Ina Kumar RN Service: (none) Author Type: Registered Nurse Filed: 09/24/141801 Date of Service: 09/24/141801 Status: Signed Medical Receptionist Biller: Ina Kumar RN (Registered Nurse) Patient is resting comfortably. Ina Kumar RN 09/24/141801 ohit Oleary MD - 09/24/2014 4:08 PM PDTFormatting of this note might be different from the o riginal. ED Provider Notes by Mohit Oleary MD at 09/24/141607 Author: Mohit Oleary MD Service: (none) Author Type: Physician Filed: 09/24/14 1728 Date of Service: 09/24/141607 Status: Signed Medical Receptionist Biller: Mohit Oleary MD (Physician) [facility] Department of Emergency Medicine Provider 09/24/14 1345 Pre-arrival Provider Pre-arrival Provider Another ED Does provider wish to be contacted after eval? No Pertinent History and Concerns A-fib RVR (new), CHF Relevant Labs or Studies BNP 700, troponin negative. Relevant Medications cardizem drip after 2 boluses Current Reported Vital Signs stable HR in the 90s ED Pre-arrival Provider to Provider 09/24/2014 Pre-arrival Provider Another ED Does provider wish to be contacted after eval? No Pertinent History and Concerns A-fib RVR (new), CHF Relevant Labs or Studies BNP 700, troponin negative. Relevant Medications cardizem drip after 2 boluses Current Reported Vital Signs stable HR in the 90s History of Present Illness Patient Identification Yumiko Peguero is a 78 y.o. female. Patient information was obtained from patient and past medical records. History/Exam limitations: none. Patient presented to the Emergency Department by: [facility] Chief Complaint Chief Complaint Patient presents with Shortness of Breath new onset of a fib. sob since last night. converted to nsr with diltiazem although goes i nto afib at times per ems Referral Transfer from [facility] Palpitations The patient complains of dyspnea, paliptations. Onset of symptoms was last night, with an i ntermittent course since that time. The symptoms are described to be of moderate severity. The patient describes the quality and location of the symptoms as the following: dyspena si nce last night, went to [facility] in atrial fibrillation. Given cardizem with conversio n to NSR, but reports that she goes "in and out of a fib" since. No chest pain. Troponin w as 0.011, BNP 750, CXR showed cardiomegaly. New onset a fib and CHF. The patient also comp lains of no recent illness. PCP: EVA AN Past Medical History Diagnosis Date Coronary artery disease Old myocardial infarction Atrial fibrillation Hypertension Hyperlipidemia Diabetes mellitus, type 2 Asthma Past Surgical History Procedure Laterality Date Tubal ligation Hysterectomy Cardiac catheterization Coronary angioplasty with stent placement Prior to Admission medications Not on File Not on File History Social History Marital Status: Single Spouse Name: N/A Number of Children: N/A Years of Education: N/A Occupational History Not on file. Social History Main Topics Smoking status: Never Smoker Smokeless tobacco: Never Used Alcohol Use: No Drug Use: No Sexual Activity: Not on file Other Topics Concern Not on file Social History Narrative No narrative on file History reviewed. No pertinent family history. Review of Systems Constitutional: Negative for: fever, chills, fatigue, sweats or weight loss Eyes: Negative for: decreased vision or irritated eyes Nose: Negative for: nosebleed Throat: Negative for: mouth sores Cardiovascular/Respiratory: Negative for: chest pain, shortness of breath, cough Gastrointestinal: Negative for: abdominal pain, vomiting, diarrhea, black or bloody stools Genitourinary: Negative for: dysuria, hematuria, urinary problems Musculoskeletal: Negative for: myalgias and arthralgias Skin: Negative for: laceration or lesion Neuro and psych: Negative for: fainting, head injury, seizure, trouble walking Endocrine/Heme/Lymph: Negative for: swollen lymph nodes, easy bruising All systems reviewed and otherwise negative Physical Exam BP 124/67 | Pulse 70 | Temp(Src) 97.3 F (36.3 C) (Oral) | Resp 16 | Ht 1.549 m (5' 1") | Wt 81.194 kg (179 lb) | BMI 33.84 kg/m2 | SpO2 98% Vital signs reviewed and normla Pulse Oximetry interpretation: Normal General: Alert, in no apparent distress Eyes: Normal inspection, pupils equal and round, non-icteric ENT: Ears normal Nose normal Pharynx normal Neck: Normal inspection Supple No lymphadenopathy No meningismus Cardiovascular: Rate and rhythm normal No murmurs Respiratory: Breath sounds normal bilaterally Abdomen: Soft, non-tender, non-distended No guarding or rebound Genitourinary: Deferred Rectal exam: Deferred Back: Normal inspection Skin: Color normal Warm and dry No rash Neuro: No motor deficit No sensory deficit No confusion Medical Decision Making and Emergency Department Course The patient presents with a chief complaint of dyspnea. The list of possible emergent diag noses that the patient requires an evaluation for includes (but is not limited to) hypercoag ulable state, anemia, dehydration, renal failure, electrolyte changes, unstable angina, acut e myocardial ischemia, arrhythmia, congestive heart failure, pericarditis, effusions, pneumo ash, asthma, pulmonary edema and anxiety with hyperventilation. I feel that laboratory test ing and further diagnostic testing is necessary to ensure that there is no acute emergent ca use of the symptoms. I have ordered a repeat 12 lead EKG, and labs. Patient will be placed on the air conditioning insulation installer to ensure no life threatening arrhythmia develops and will be given supplemental oxygen via nasal cannula if indiated. ED Department Course 4:54. Hospitalist consult requested. 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 Troponin here negative. Chest pain free. 5:27. Intermittent a fib, hospitalist requesting cardizem drip. Records Reviewed Old medical records. Laboratory Evaluation Labs Reviewed BRAIN NATRIURETIC PEPTIDE - Abnormal; Notable for the following: BRAIN NATRIURETIC PEPTIDE 647 (*) All other components within normal limits [facility] CARD PANEL W/O TRP (ED ONLY) - Abnormal; Notable for the following: GLUCOSE 114 (*) All other components within normal limits POC CARDIAC TROPONIN Results Procedure Component Value Units Date/Time BNP [[id number]] (Abnormal) Collected: 09/24/14 1615 Specimen Information: Blood Updated: 09/24/14 1650 BRAIN NATRIURETIC PEPTIDE 647 (H) pg/mL Cardiac Panel [[id number]] (Abnormal) Collected: 09/24/14 1615 WBC 6.79 K/uL Updated: 09/24/14 1645 RBC 4.88 M/uL HGB 14.2 g/dL HCT 43.7 % MCV 89.4 fl MCH 29.2 pg MCHC 32.6 g/dL RDW SD 45.5 fl PLT 247 K/uL MPV 7.5 fl DIFF TYPE AUTOMATED NEUTROPHILS 60.73 % LYMPHOCYTES 28.34 % MONOCYTES 6.65 % EOSINOPHILS 3.10 % BASOPHILS 1.18 % NEUTROPHILS ABS 4.12 K/uL LYMPHOCYTES ABS 1.93 K/uL MONOCYTES ABS 0.45 K/uL EOSINOPHILS ABS 0.21 K/uL BASOPHILS ABS 0.08 K/uL SODIUM 143 mmol/L POTASSIUM 3.6 mmol/L CHLORIDE 109 mmol/L CO2 25 mmol/L ANION GAP AGAP 13 mmol/L GLUCOSE 114 (H) mg/dL BUN 9 mg/dL CREATININE 0.79 mg/dL BUN/CREAT 11 CALCIUM 8.8 mg/dL TOTAL PROTEIN 7.2 g/dL Albumin 3.7 g/dL GLOBULIN 3.5 g/dL A/G 1.1 TBIL 0.8 mg/dL ALK PHOS 104 U/L AST 26 U/L ALT 31 U/L EGFR >60 mL/min/1.73m2 CPK 42 U/L INR 1.0 APTT 30 seconds MMB 1.1 ng/mL CK-MB Index 2.6 Available Labs reviewed and interpreted by me. Radiology Evaluation Imaging Results None Available radiology studies reviewed and interpreted contemporaneously by me. EKG Interpretation Rhythm: Sinus , with PACx Ventricular Rate: 102 LA Interval: Normal ST Segments: Normal Significant Q-waves: None Blocks: Incomplete left bundle ED Diagnoses Final diagnoses New onset atrial fibrillation CHF (congestive heart failure) Disposition: ED Disposition Admit/Observation Bed request special needs: None Diagnosis?: new onset a fib, new onset CHF Procedures Additional Documentation Procedures Mohit Oleary MD 09/24/14 1728 onversion Transacti on, Provider Unknown - 09/24/2014 4:01 PM PDTFormatting of this note might be different fro m the original. ED Notes by Carlos Hamilton RN at 09/24/14 160 Author: Carlos Hamilton RN Service: (none) Author Type: Registered Nurse Filed: 09/24/14 160 Date of Service: 09/24/141600 Status: Signed Medical Receptionist Biller: Carlos Hamilton RN (Registered Nurse) Bed: 1107 Expected date: Expected time: Means of arrival: Comments: onver [place] Transaction, Provider Unknown - 09/24/2014 3:12 PM PDT ED Notes by Carlos Hamilton RN at 09/24/141511 Author: Carlos Hamilton RN Service: (none) Author Type: Registered Nurse Filed: 09/24/14 1538 Date of Service: 09/24/141511 Status: Signed Medical Receptionist Biller: Carlos Hamilton RN (Registered Nurse) Pt transferring from [facility] for A-Fib with RVR. Pt arrived to [place] ED with complaints of shortness of breath and heart palpitations. Pt's EKG revealed A-Fib RVR. Pt has history of HTN, Cardiac stent and Hyperlipidemia. Pt was given 324 mg Aspirin PO, Pot assium 40 mEq PO, Lovenox 81 mg subcutaneous, 20 mg Diltiazem IVP and Diltiazem infusion at 10 ml/HR. Pt states to have converted to normal sinus rhythm at 1422. Pt has 18 ga R AC. Pt' s BNP 749 and a negative troponin. Carlos Hamilton RN 09/24/[id number] docume nted in this encounter Plan of Treatment +--------+---------+ [...] | | | | | | [place] [address] | | | | | | [phone] | | | | | | | [...] | EXTERNAL LAB: CBC | Routin | 09/28/2014 | | Results [...] | EXTERNAL LAB: CBC | Routin | 09/27/2014 | | Results [...] | | | | | performed at [facility];[address] | | | | | | [facility];[place], [place] | | | | | | [address] | | | | + + + [...] | | | | | [place] [address] | | | | + + + + + + | Non- | 4.41Comment: Testing | 3.70 - 5.10 | EXTERNAL | | | Red Blood | performed at [facility], [address] | M/uL | LAB | | | Cells | [address], | | | | | Counted | [place] [address] | | | | + + + + + + | Hemoglobin | 13.0Comment: Testing | 11.3 - 15.5 | EXTERNAL | | | | performed at [facility], [address] | g/dL | LAB | | | | [address], | | | | | | [place] [address] | | | | + + + + + + | Hematocrit, | 39.2Comment: Testing | 34.0 - 46.0 % | EXTERNAL | | | POC | performed at [facility], [address] | | LAB | | | | [address], | | | | | | [place] [address] | | | | + + + + + + | MCV | 89.0Comment: Testing | 80.0 - 100.0 fl | EXTERNAL | | | | performed at [facility], [address] | | LAB | | | | [address], | | | | | | [place] [address] | | | | + + + + + + | MCH | 29.5Comment: Testing | 27.0 - 34.0 pg | EXTERNAL | | | | performed at [facility], [address] | | LAB | | | | [address], | | | | | | [place] [address] | | | | + + + + + + | MCHC | 33.1Comment: Testing | 32.0 - 35.5 | EXTERNAL | | | | performed at [facility], [address] | g/dL | LAB | | | | [address], | | | | | | [place] [address] | | | | + + + + + + | RDW-CV | 45.5Comment: Testing | 37 - 53 fl | EXTERNAL | | | | performed at [facility], [address] | | LAB | | | | [address], | | | | | | [place] [address] | | | | + + + + + + | Platelet | 229Comment: Testing | 150 - 400 K/uL | EXTERNAL | | | Count | performed at [facility], [address] | | LAB | | | Plasma | [address], | | | | | | [place] [address] | | | | + + + + + + | MPV | 8.4Comment: Testing | fl | EXTERNAL | | | | performed at [facility], [address] | | LAB | | | | [address], | | | | | | [place] [address] | | | | + + + + + + | Differentia | AUTOMATEDComment: | | EXTERNAL | | | l Type | Testing performed at | | LAB | | | | [facility], [address] | | | | | | [place] | | | | | | [address] | | | | + + + + + + | % Segmented | 69.84Comment: Testing | % | EXTERNAL | | | | performed at [facility], [address] | | LAB | | | Neutrophils | [address], | | | | | | [place] [address] | | | | + + + + + + | % | 17.71Comment: Testing | % | EXTERNAL | | | Lymphocytes | performed at [facility], [address] | | LAB | | | | [address], | | | | | | [place] [address] | | | | + + + + + + | % Monocytes | 7.47Comment: Testing | % | EXTERNAL | | | | performed at [facility], [address] | | LAB | | | | [address], | | | | | | [place] [address] | | | | + + + + + + | % | 4.22Comment: Testing | % | EXTERNAL | | | Eosinophils | performed at [facility], [address] | | LAB | | | | [address], | | | | | | [place] [address] | | | | + + + + + + | % Basophils | 0.76Comment: Testing | % | EXTERNAL | | | | performed at [facility], [address] | | LAB | | | | [address], | | | | | | [place] [address] | | | | + + + + + + | Absolute | 5.55Comment: Testing | 1.90 - 7.40 | EXTERNAL | | | Segmented | performed at [facility], [address] | K/uL | LAB | | | Neutrophils | [address], | | | | | | [place] [address] | | | | + + + + + + | Absolute | 1.41Comment: Testing | 1.00 - 3.90 | EXTERNAL | | | Lymphocytes | performed at [facility], [address] | K/uL | LAB | | | | [address], | | | | | | [place] [address] | | | | + + + + + + | Absolute | 0.59Comment: Testing | 0.00 - 0.80 | EXTERNAL | | | Monocytes | performed at [facility], [address] | K/uL | LAB | | | | [address], | | | | | | [place] [address] | | | | + + + + + + | Absolute | 0.34Comment: Testing | 0.00 - 0.50 | EXTERNAL | | | Eosinophils | performed at [facility], [address] | K/uL | LAB | | | | [address], | | | | | | [place] [address] | | | | + + + + + + | Absolute | 0.06Comment: Testing | 0.00 - 0.10 | EXTERNAL | | | Basophils | performed at [facility], [address] | K/uL | LAB | | | | [address], | | | | | | [place] [address] | | | | + + + [...] | | | | | [place] [address] | | | | + + + + + + | K | 3.7Comment: Testing | 3.5 - 4.9 | EXTERNAL | | | | performed at [facility], [address] | mmol/L | LAB | | | | [address], | | | | | | [place] [address] | | | | + + + + + + | Cl | 107Comment: Testing | 99 - 109 mmol/L | EXTERNAL | | | | performed at [facility], [address] | | LAB | | | | [address], | | | | | | [place] [address] | | | | + + + + + + | CO2 | 29Comment: Testing | 23 - 32 mmol/L | EXTERNAL | | | | performed at [facility], [address] | | LAB | | | [address], | | | | | | [place] [address] | | | | + + + + + + | Anion Gap | 3 (L)Comment: Testing | 5 - 20 mmol/L | EXTERNAL | | | | performed at [facility], [address] | | LAB | | | | [address], | | | | | | [place] [address] | | | | + + + + + + | Glucose, | 96Comment: Testing | 65 - 99 mg/dL | EXTERNAL | | | Fasting | performed at [facility], [address] | | LAB | | | | [address], | | | | | | [place] [address] | | | | + + + + + + | BUN | 13Comment: Testing | 8 - 25 mg/dL | EXTERNAL | | | | performed at [facility], [address] | | LAB | | | | [address], | | | | | | [place] [address] | | | | + + + + + + | Creatinine | 0.77Comment: Testing | 0.50 - 1.00 | EXTERNAL | | | | performed at [facility], [address] | mg/dL | LAB | | | | [address], | | | | | | [place] [address] | | | | + + + + + + | BUN/Creatin | 17Comment: Testing | | EXTERNAL | | | ine Ratio | performed at [facility], [address] | | LAB | | | | [address], | | | | | | [place] [address] | | | | + + + + + + | Calcium | 9.4Comment: Testing | 8.5 - 10.5 | EXTERNAL | | | | performed at [facility], [address] | mg/dL | LAB | | | | [address], | | | | | | [place] [address] | | | | + + + [...] | | | | | | at [facility], [address] | | | | | | [address], | | | | | | [place] [address] | | | | + + + [...] + + | Historically converted procedure from [facility] | EXTERNAL LAB | + + [...] | | left radial artery cannulized with 6-Ethiopian Slender sheath, 2.5 mg | | | verapamil, 200 mcg nitroglycerin, and 5000 international units | | | heparin given through the sheath. Over a 260 exchange wire a | | | 6-Ethiopian XB3.5 guide advanced to the ascending aorta, [...] | need for an AICD. Read by HEIDY CEJA MD 09/30/2014 09:06 A | | [...] left radial artery | | cannulized with 6-Ethiopian Slender sheath, 2.5 mg verapamil, 200 mcg | | nitroglycerin, and 5000 international units heparin given through the | | sheath. | | | | Over a 260 exchange wire a 6-Ethiopian XB3.5 guide advanced to the ascending | [...] AICD. | | | | Read by HEIDY CEJA MD 09/30/2014 09:06 A | | [...] | | | Clotting | performed at [facility];888 | seconds | LAB | | | time, POC | [address];[place], [place] | | | | | | [address] | | | | + + + + + + + + | Specimen | + + | | + + + +---------+ + + | Performing | Address | City/State/Zipcode | Phone Number | | Organization | | | | + +---------+ + + | EXTERNAL LAB | | | | + +---------+ + + Rolandime INR (09/30/2014 3:58 AM PDT) + + [...] | | | | | performed at [facility] | | | | | | [facility];[place], [place] | | | | | | [address] | | | | + + + [...] EXTERNAL | | | | performed at [facility], [address] | K/uL | LAB | | | | [address], | | | | | | [place] [address] | | | | + + + + + + | Non- | 4.43Comment: Testing | 3.70 - 5.10 | EXTERNAL | | | Red Blood | performed at [facility], [address] | M/uL | LAB | | | Cells | [address], | | | | | Counted | [place] [address] | | | | + + + + + + | Hemoglobin | 13.1Comment: Testing | 11.3 - 15.5 | EXTERNAL | | | | performed at [facility], [address] | g/dL | LAB | | | | [address], | | | | | | [place] [address] | | | | + + + + + + | Hematocrit, | 39.8Comment: Testing | 34.0 - 46.0 % | EXTERNAL | | | POC | performed at [facility], [address] | | LAB | | | | [address], | | | | | | [place] [address] | | | | + + + + + + | MCV | 89.7Comment: Testing | 80.0 - 100.0 fl | EXTERNAL | | | | performed at [facility], [address] | | LAB | | | | [address], | | | | | | [place] [address] | | | | + + + + + + | MCH | 29.6Comment: Testing | 27.0 - 34.0 pg | EXTERNAL | | | | performed at [facility], [address] | | LAB | | | | [address], | | | | | | [place] [address] | | | | + + + + + + | MCHC | 33.0Comment: Testing | 32.0 - 35.5 | EXTERNAL | | | | performed at [facility], [address] | g/dL | LAB | | | | [address], | | | | | | [place] [address] | | | | + + + + + + | RDW-CV | 45.9Comment: Testing | 37 - 53 fl | EXTERNAL | | | | performed at [facility], [address] | | LAB | | | | [address], | | | | | | [place] [address] | | | | + + + + + + | Platelet | 231Comment: Testing | 150 - 400 K/uL | EXTERNAL | | | Count | performed at [facility], [address] | | LAB | | | Plasma | [address], | | | | | | [place] [address] | | | | + + + + + + | MPV | 8.3Comment: Testing | fl | EXTERNAL | | | | performed at [facility], [address] | | LAB | | | | [address], | | | | | | [place] [address] | | | | + + + + + + | Differentia | AUTOMATEDComment: | | EXTERNAL | | | l Type | Testing performed at | | LAB | | | | [facility], [address] | | | | | | [place] | | | | | | [address] | | | | + + + + + + | % Segmented | 72.81Comment: Testing | % | EXTERNAL | | | | performed at [facility], [address] | | LAB | | | Neutrophils | [address], | | | | | | [place] [address] | | | | + + + + + + | % | 14.65Comment: Testing | % | EXTERNAL | | | Lymphocytes | performed at [facility], [address] | | LAB | | | | [address], | | | | | | [place] [address] | | | | + + + + + + | % Monocytes | 8.33Comment: Testing | % | EXTERNAL | | | | performed at [facility], [address] | | LAB | | | | [address], | | | | | | [place] [address] | | | | + + + + + + | % | 3.54Comment: Testing | % | EXTERNAL | | | Eosinophils | performed at [facility], [address] | | LAB | | | | [address], | | | | | | [place] [address] | | | | + + + + + + | % Basophils | 0.67Comment: Testing | % | EXTERNAL | | | | performed at [facility], [address] | | LAB | | | | [address], | | | | | | [place] [address] | | | | + + + + + + | Absolute | 5.28Comment: Testing | 1.90 - 7.40 | EXTERNAL | | | Segmented | performed at [facility], [address] | K/uL | LAB | | | Neutrophils | [address], | | | | | | [place] [address] | | | | + + + + + + | Absolute | 1.06Comment: Testing | 1.00 - 3.90 | EXTERNAL | | | Lymphocytes | performed at [facility], [address] | K/uL | LAB | | | | [address], | | | | | | [place] [address] | | | | + + + + + + | Absolute | 0.60Comment: Testing | 0.00 - 0.80 | EXTERNAL | | | Monocytes | performed at [facility], [address] | K/uL | LAB | | | | [address], | | | | | | [place] [address] | | | | + + + + + + | Absolute | 0.26Comment: Testing | 0.00 - 0.50 | EXTERNAL | | | Eosinophils | performed at [facility], [address] | K/uL | LAB | | | | [address], | | | | | | [place] [address] | | | | + + + + + + | Absolute | 0.05Comment: Testing | 0.00 - 0.10 | EXTERNAL | | | Basophils | performed at [facility], [address] | K/uL | LAB | | | | [address], | | | | | | [place] [address] | | | | + + + [...] | | | | | [place] [address] | | | | + + + + + + | K | 3.3 (L)Comment: Testing | 3.5 - 4.9 | EXTERNAL | | | | performed at [facility], [address] | mmol/L | LAB | | | | [address], | | | | | | [place] [address] | | | | + + + + + + | Cl | 105Comment: Testing | 99 - 109 mmol/L | EXTERNAL | | | | performed at [facility], [address] | | LAB | | | | [address], | | | | | | [place] [address] | | | | + + + + + + | CO2 | 26Comment: Testing | 23 - 32 mmol/L | EXTERNAL | | | | performed at [facility], [address] | | LAB | | | | [address], | | | | | | [place] [address] | | | | + + + + + + | Anion Gap | 10Comment: Testing | 5 - 20 mmol/L | EXTERNAL | | | | performed at [facility], [address] | | LAB | | | | [address], | | | | | | [place] [address] | | | | + + + + + + | Glucose, | 120 (H)Comment: Testing | 65 - 99 mg/dL | EXTERNAL | | | Fasting | performed at [facility], [address] | | LAB | | | | [address], | | | | | | [place] [address] | | | | + + + + + + | BUN | 16Comment: Testing | 8 - 25 mg/dL | EXTERNAL | | | | performed at [facility], [address] | | LAB | | | | [address], | | | | | | [place] [address] | | | | + + + + + + | Creatinine | 0.92Comment: Testing | 0.50 - 1.00 | EXTERNAL | | | | performed at [facility], [address] | mg/dL | LAB | | | | [address], | | | | | | [place] [address] | | | | + + + + + + | BUN/Creatin | 17Comment: Testing | | EXTERNAL | | | ine Ratio | performed at [facility], [address] | | LAB | | | | [address], | | | | | | [place] [address] | | | | + + + + + + | Calcium | 9.2Comment: Testing | 8.5 - 10.5 | EXTERNAL | | | | performed at [facility], [address] | mg/dL | LAB | | | | [address], | | | | | | [place] [address] | | | | + + + [...] | | | | | | at [facility], [address] | | | | | | [address], | | | | | | [place] [address] | | | | + + + [...] | | | | | performed at [facility];[address] | | | | | | [address];[place], [place] | | | | | | [address] | | | | + + [...] | | | | | | [place] [address] | | | | + + + + + + | Non- | 4.46Comment: Testing | 3.70 - 5.10 | EXTERNAL | | | Red Blood | performed at [facility], [address] | M/uL | LAB | | | Cells | [address], | | | | | Counted | [place] [address] | | | | + + + + + + | Hemoglobin | 13.2Comment: Testing | 11.3 - 15.5 | EXTERNAL | | | | performed at [facility], [address] | g/dL | LAB | | | | [address], | | | | | | [place] [address] | | | | + + + + + + | Hematocrit, | 39.8Comment: Testing | 34.0 - 46.0 % | EXTERNAL | | | POC | performed at [facility], [address] | | LAB | | | | [address], | | | | | | [place] [address] | | | | + + + + + + | MCV | 89.4Comment: Testing | 80.0 - 100.0 fl | EXTERNAL | | | | performed at [facility], [address] | | LAB | | | | [address], | | | | | | [place] [address] | | | | + + + + + + | MCH | 29.7Comment: Testing | 27.0 - 34.0 pg | EXTERNAL | | | | performed at [facility], [address] | | LAB | | | | [address], | | | | | | [place] [address] | | | | + + + + + + | MCHC | 33.2Comment: Testing | 32.0 - 35.5 | EXTERNAL | | | | performed at [facility], [address] | g/dL | LAB | | | | [address], | | | | | | [place] [address] | | | | + + + + + + | RDW-CV | 46.4Comment: Testing | 37 - 53 fl | EXTERNAL | | | | performed at [facility], [address] | | LAB | | | | [address], | | | | | | [place] [address] | | | | + + + + + + | Platelet | 225Comment: Testing | 150 - 400 K/uL | EXTERNAL | | | Count | performed at [facility], [address] | | LAB | | | Plasma | [address], | | | | | | [place] [address] | | | | + + + + + + | MPV | 8.3Comment: Testing | fl | EXTERNAL | | | | performed at [facility], [address] | | LAB | | | | [address], | | | | | | [place] [address] | | | | + + + + + + | Differentia | AUTOMATEDComment: | | EXTERNAL | | | l Type | Testing performed at | | LAB | | | | [facility], [address] | | | | | | [place] | | | | | | [address] | | | | + + + + + + | % Segmented | 76.31Comment: Testing | % | EXTERNAL | | | | performed at [facility], [address] | | LAB | | | Neutrophils | [address], | | | | | | [place] [address] | | | | + + + + + + | % | 12.61Comment: Testing | % | EXTERNAL | | | Lymphocytes | performed at [facility], [address] | | LAB | | | | [address], | | | | | | [place] [address] | | | | + + + + + + | % Monocytes | 6.78Comment: Testing | % | EXTERNAL | | | | performed at [facility], [address] | | LAB | | | | [address], | | | | | | [place], [place] [address] | | | | + + + + + + | % | 3.71Comment: Testing | % | EXTERNAL | | | Eosinophils | performed at [facility], [address] | | LAB | | | | [address], | | | | | | [place], [place] [address] | | | | + + + + + + | % Basophils | 0.59Comment: Testing | % | EXTERNAL | | | | performed at [facility], [address] | | LAB | | | | [address], | | | | | | [place] [address] | | | | + + + + + + | Absolute | 6.27Comment: Testing | 1.90 - 7.40 | EXTERNAL | | | Segmented | performed at [facility], [address] | K/uL | LAB | | | Neutrophils | [address], | | | | | | [place] [address] | | | | + + + + + + | Absolute | 1.04Comment: Testing | 1.00 - 3.90 | EXTERNAL | | | Lymphocytes | performed at [facility], [address] | K/uL | LAB | | | | [address], | | | | | | [place] [address] | | | | + + + + + + | Absolute | 0.56Comment: Testing | 0.00 - 0.80 | EXTERNAL | | | Monocytes | performed at [facility], [address] | K/uL | LAB | | | | [address], | | | | | | [place] [address] | | | | + + + + + + | Absolute | 0.31Comment: Testing | 0.00 - 0.50 | EXTERNAL | | | Eosinophils | performed at [facility], [address] | K/uL | LAB | | | | [address], | | | | | | [place] [address] | | | | + + + + + + | Absolute | 0.05Comment: Testing | 0.00 - 0.10 | EXTERNAL | | | Basophils | performed at [facility], [address] | K/uL | LAB | | | | [address], | | | | | | [place] [address] | | | | + + + [...] | | | | | [place] [address] | | | | + + + + + + | K | 3.6Comment: Testing | 3.5 - 4.9 | EXTERNAL | | | | performed at [facility], [address] | mmol/L | LAB | | | | [address], | | | | | | [place] [address] | | | | + + + + + + | Cl | 105Comment: Testing | 99 - 109 mmol/L | EXTERNAL | | | | performed at [facility], [address] | | LAB | | | | [address], | | | | | | [place] [address] | | | | + + + + + + | CO2 | 25Comment: Testing | 23 - 32 mmol/L | EXTERNAL | | | | performed at [facility], [address] | | LAB | | | | [address], | | | | | | [place] [address] | | | | + + + + + + | Anion Gap | 11Comment: Testing | 5 - 20 mmol/L | EXTERNAL | | | | performed at [facility], [address] | | LAB | | | | [address], | | | | | | [place] [address] | | | | + + + + + + | Glucose, | 90Comment: Testing | 65 - 99 mg/dL | EXTERNAL | | | Fasting | performed at [facility], [address] | | LAB | | | | [address], | | | | | | [place] [address] | | | | + + + + + + | BUN | 11Comment: Testing | 8 - 25 mg/dL | EXTERNAL | | | | performed at [facility], [address] | | LAB | | | | [address], | | | | | | [place] [address] | | | | + + + + + + | Creatinine | 0.75Comment: Testing | 0.50 - 1.00 | EXTERNAL | | | | performed at [facility], [address] | mg/dL | LAB | | | | [address], | | | | | | [place] [address] | | | | + + + + + + | BUN/Creatin | 15Comment: Testing | | EXTERNAL | | | ine Ratio | performed at [facility], [address] | | LAB | | | | [address], | | | | | | [place] [address] | | | | + + + + + + | Calcium | 9.0Comment: Testing | 8.5 - 10.5 | EXTERNAL | | | | performed at [facility], [address] | mg/dL | LAB | | | | [address], | | | | | | [place] [address] | | | | + + + [...] W | | | | | | [address], | | | | | | [place] [address] | | | | + + + [...] | | | | | performed at [facility];[address] | | | | | | [facility];[place], [place] | | | | | | [address] | | | | + + + [...] + +---------+ + + External Lab: MINERVA (09/28/2014 3:56 AM PDT) + + + [...] | | | | | [place] [address] | | | | + + + + + + | Non- | 4.36Comment: Testing | 3.70 - 5.10 | EXTERNAL | | | Red Blood | performed at [facility], [address] | M/uL | LAB | | | Cells | [address], | | | | | Counted | [place] [address] | | | | + + + + + + | Hemoglobin | 12.9Comment: Testing | 11.3 - 15.5 | EXTERNAL | | | | performed at [facility], [address] | g/dL | LAB | | | | [address], | | | | | | [place] [address] | | | | + + + + + + | Hematocrit, | 39.0Comment: Testing | 34.0 - 46.0 % | EXTERNAL | | | POC | performed at [facility], [address] | | LAB | | | | [address], | | | | | | [place] [address] | | | | + + + + + + | MCV | 89.5Comment: Testing | 80.0 - 100.0 fl | EXTERNAL | | | | performed at [facility], [address] | | LAB | | | | [address], | | | | | | [place] [address] | | | | + + + + + + | MCH | 29.6Comment: Testing | 27.0 - 34.0 pg | EXTERNAL | | | | performed at [facility], [address] | | LAB | | | | [address], | | | | | | [place] [address] | | | | + + + + + + | MCHC | 33.0Comment: Testing | 32.0 - 35.5 | EXTERNAL | | | | performed at [facility], [address] | g/dL | LAB | | | | [address], | | | | | | [place] [address] | | | | + + + + + + | RDW-CV | 45.1Comment: Testing | 37 - 53 fl | EXTERNAL | | | | performed at [facility], [address] | | LAB | | | | [address], | | | | | | [place] [address] | | | | + + + + + + | Platelet | 203Comment: Testing | 150 - 400 K/uL | EXTERNAL | | | Count | performed at [facility], [address] | | LAB | | | Plasma | [address], | | | | | | [place] [address] | | | | + + + + + + | MPV | 8.5Comment: Testing | fl | EXTERNAL | | | | performed at [facility], [address] | | LAB | | | | [address], | | | | | | [place] [address] | | | | + + + + + + | Differentia | AUTOMATEDComment: | | EXTERNAL | | | l Type | Testing performed at | | LAB | | | | [facility], [address] | | | | | | [place] | | | | | | [address] | | | | + + + + + + | % Segmented | 68.25Comment: Testing | % | EXTERNAL | | | | performed at [facility], [address] | | LAB | | | Neutrophils | [address], | | | | | | [place] [address] | | | | + + + + + + | % | 19.10Comment: Testing | % | EXTERNAL | | | Lymphocytes | performed at [facility], [address] | | LAB | | | | [address], | | | | | | [place] [address] | | | | + + + + + + | % Monocytes | 7.31Comment: Testing | % | EXTERNAL | | | | performed at [facility], [address] | | LAB | | | | [address], | | | | | | [place] [address] | | | | + + + + + + | % | 4.67Comment: Testing | % | EXTERNAL | | | Eosinophils | performed at [facility], [address] | | LAB | | | | [address], | | | | | | [place] [address] | | | | + + + + + + | % Basophils | 0.67Comment: Testing | % | EXTERNAL | | | | performed at [facility], [address] | | LAB | | | | [address], | | | | | | [place] [id number] | | | | + + + + + + | Absolute | 5.09Comment: Testing | 1.90 - 7.40 | EXTERNAL | | | Segmented | performed at [facility], [address] | K/uL | LAB | | | Neutrophils | [address], | | | | | | [place] [address] | | | | + + + + + + | Absolute | 1.42Comment: Testing | 1.00 - 3.90 | EXTERNAL | | | Lymphocytes | performed at [facility], [address] | K/uL | LAB | | | | [address], | | | | | | [place] [address] | | | | + + + + + + | Absolute | 0.55Comment: Testing | 0.00 - 0.80 | EXTERNAL | | | Monocytes | performed at [facility], [address] | K/[address] | LAB | | | | [address], | | | | | | [place] [address] | | | | + + + + + + | Absolute | 0.35Comment: Testing | 0.00 - 0.50 | EXTERNAL | | | Eosinophils | performed at [facility], [address] | K[address] | LAB | | | | [address], | | | | | | [place] [address] | | | | + + + + + + | Absolute | 0.05Comment: Testing | 0.00 - 0.10 | EXTERNAL | | | Basophils | performed at [facility], [address] | K[address] | LAB | | | | [address], | | | | | | [place] [address] | | | | + + + [...] | | | | | [place] [address] | | | | + + + + + + | K | 3.6Comment: Testing | 3.5 - 4.9 | EXTERNAL | | | | performed at [facility], [address] | mmol/L | LAB | | | | [address], | | | | | | [place] [address] | | | | + + + + + + | Cl | 105Comment: Testing | 99 - 109 mmol/L | EXTERNAL | | | | performed at [facility], [address] | | LAB | | | | [address], | | | | | | [place] [address] | | | | + + + + + + | CO2 | 25Comment: Testing | 23 - 32 mmol/L | EXTERNAL | | | | performed at [facility], [address] | | LAB | | | | [address], | | | | | | [place] [address] | | | | + + + + + + | Anion Gap | 10Comment: Testing | 5 - 20 mmol/L | EXTERNAL | | | | performed at [facility], [address] | | LAB | | | | [address], | | | | | | [place] [address] | | | | + + + + + + | Glucose, | 135 (H)Comment: Testing | 65 - 99 mg/dL | EXTERNAL | | | Fasting | performed at [facility], [address] | | LAB | | | | [address], | | | | | | [place] [address] | | | | + + + + + + | BUN | 11Comment: Testing | 8 - 25 mg/dL | EXTERNAL | | | | performed at [facility], [address] | | LAB | | | | [address], | | | | | | [place] [address] | | | | + + + + + + | Creatinine | 0.77Comment: Testing | 0.50 - 1.00 | EXTERNAL | | | | performed at [facility], [address] | mg/dL | LAB | | | | [address], | | | | | | [place] [address] | | | | + + + + + + | BUN/Creatin | 14Comment: Testing | | EXTERNAL | | | ine Ratio | performed at [facility], [address] | | LAB | | | | [address], | | | | | | [place] [address] | | | | + + + + + + | Calcium | 9.0Comment: Testing | 8.5 - 10.5 | EXTERNAL | | | | performed at [facility], [address] | mg/dL | LAB | | | | [address], | | | | | | [place] [address] | | | | + + + [...] W | | | | | | [address], | | | | | | [place] [address] | | | | + + + [...] | | | | | performed at [facility];[address] | | | | | | [address];[place], [place] | | | | | | [address] | | | | + + + [...] EXTERNAL | | | | performed at [facility], [address] | K/uL | LAB | | | | [address], | | | | | | [place] [address] | | | | + + + + + + | Non- | 4.42Comment: Testing | 3.70 - 5.10 | EXTERNAL | | | Red Blood | performed at [facility], [address] | M/uL | LAB | | | Cells | [address], | | | | | Counted | [place] [address] | | | | + + + + + + | Hemoglobin | 13.1Comment: Testing | 11.3 - 15.5 | EXTERNAL | | | | performed at [facility], [address] | g/dL | LAB | | | | [address], | | | | | | [place] [address] | | | | + + + + + + | Hematocrit, | 39.3Comment: Testing | 34.0 - 46.0 % | EXTERNAL | | | POC | performed at [facility], [address] | | LAB | | | | [address], | | | | | | [place] [address] | | | | + + + + + + | MCV | 88.9Comment: Testing | 80.0 - 100.0 fl | EXTERNAL | | | | performed at [facility], [address] | | LAB | | | | [address], | | | | | | [place] [address] | | | | + + + + + + | MCH | 29.7Comment: Testing | 27.0 - 34.0 pg | EXTERNAL | | | | performed at [facility], [address] | | LAB | | | | [address], | | | | | | [place] [address] | | | | + + + + + + | MCHC | 33.4Comment: Testing | 32.0 - 35.5 | EXTERNAL | | | | performed at [facility], [address] | g/dL | LAB | | | | [address], | | | | | | [place] [address] | | | | + + + + + + | RDW-CV | 46.4Comment: Testing | 37 - 53 fl | EXTERNAL | | | | performed at [facility], [address] | | LAB | | | | [address], | | | | | | [place] [address] | | | | + + + + + + | Platelet | 216Comment: Testing | 150 - 400 K/uL | EXTERNAL | | | Count | performed at [facility], [address] | | LAB | | | Plasma | [address], | | | | | | [place] [address] | | | | + + + + + + | MPV | 8.1Comment: Testing | fl | EXTERNAL | | | | performed at [facility], [address] | | LAB | | | | [address], | | | | | | [place] [address] | | | | + + + + + + | Differentia | AUTOMATEDComment: | | EXTERNAL | | | l Type | Testing performed at | | LAB | | | | [facility], [address] | | | | | | [place] | | | | | | [address] | | | | + + + + + + | % Segmented | 67.07Comment: Testing | % | EXTERNAL | | | | performed at [facility], [address] | | LAB | | | Neutrophils | [address], | | | | | | [place], [place] [address] | | | | + + + + + + | % | 20.82Comment: Testing | % | EXTERNAL | | | Lymphocytes | performed at [facility], [address] | | LAB | | | | [address], | | | | | | [place], [place] [address] | | | | + + + + + + | % Monocytes | 5.74Comment: Testing | % | EXTERNAL | | | | performed at [facility], [address] | | LAB | | | | [address], | | | | | | [place], [place] [address] | | | | + + + + + + | % | 5.45Comment: Testing | % | EXTERNAL | | | Eosinophils | performed at [facility], [address] | | LAB | | | | [address], | | | | | | [place], [place] [address] | | | | + + + + + + | % Basophils | 0.92Comment: Testing | % | EXTERNAL | | | | performed at [facility], [address] | | LAB | | | | [address], | | | | | | [place] [address] | | | | + + + + + + | Absolute | 5.64Comment: Testing | 1.90 - 7.40 | EXTERNAL | | | Segmented | performed at [facility], [address] | K/uL | LAB | | | Neutrophils | [address], | | | | | | [place] [address] | | | | + + + + + + | Absolute | 1.75Comment: Testing | 1.00 - 3.90 | EXTERNAL | | | Lymphocytes | performed at [facility], [address] | K/uL | LAB | | | | [address], | | | | | | [place] [address] | | | | + + + + + + | Absolute | 0.48Comment: Testing | 0.00 - 0.80 | EXTERNAL | | | Monocytes | performed at [facility], [address] | K/uL | LAB | | | | [address], | | | | | | [place] [address] | | | | + + + + + + | Absolute | 0.46Comment: Testing | 0.00 - 0.50 | EXTERNAL | | | Eosinophils | performed at [facility], [address] | K/uL | LAB | | | | [address], | | | | | | [place] [address] | | | | + + + + + + | Absolute | 0.08Comment: Testing | 0.00 - 0.10 | EXTERNAL | | | Basophils | performed at [facility], [address] | K/uL | LAB | | | | [address], | | | | | | [place] [address] | | | | + + + [...] | | | | | [place] [address] | | | | + + + + + + | K | 3.4 (L)Comment: Testing | 3.5 - 4.9 | EXTERNAL | | | | performed at [facility], [address] | mmol/L | LAB | | | | [address], | | | | | | [place] [address] | | | | + + + + + + | Cl | 106Comment: Testing | 99 - 109 mmol/L | EXTERNAL | | | | performed at [facility], [address] | | LAB | | | | [address], | | | | | | [place] [address] | | | | + + + + + + | CO2 | 25Comment: Testing | 23 - 32 mmol/L | EXTERNAL | | | | performed at [facility], [address] | | LAB | | | | [address], | | | | | | [place] [address] | | | | + + + + + + | Anion Gap | 10Comment: Testing | 5 - 20 mmol/L | EXTERNAL | | | | performed at [facility], [address] | | LAB | | | | [address], | | | | | | [place] [address] | | | | + + + + + + | Glucose, | 107 (H)Comment: Testing | 65 - 99 mg/dL | EXTERNAL | | | Fasting | performed at [facility], [address] | | LAB | | | | [address], | | | | | | [place] [address] | | | | + + + + + + | BUN | 10Comment: Testing | 8 - 25 mg/dL | EXTERNAL | | | | performed at [facility], [address] | | LAB | | | | [address], | | | | | | [place] [address] | | | | + + + + + + | Creatinine | 0.77Comment: Testing | 0.50 - 1.00 | EXTERNAL | | | | performed at [facility], [address] | mg/dL | LAB | | | | [address], | | | | | | [place] [address] | | | | + + + + + + | BUN/Creatin | 13Comment: Testing | | EXTERNAL | | | ine Ratio | performed at [facility], [address] | | LAB | | | | [address], | | | | | | [place] [address] | | | | + + + + + + | Calcium | 9.0Comment: Testing | 8.5 - 10.5 | EXTERNAL | | | | performed at [facility], [address] | mg/dL | LAB | | | | [address], | | | | | | [place] [address] | | | | + + + + + + | Protein, | 6.1 (L)Comment: Testing | 6.3 - 8.2 g/dL | EXTERNAL | | | Total | performed at [facility], [address] | | LAB | | | | [address], | | | | | | [place] [address] | | | | + + + + + + | Albumin | 3.6Comment: Testing | 3.3 - 4.8 g/dL | EXTERNAL | | | | performed at [facility], [address] | | LAB | | | | [address], | | | | | | [place] [address] | | | | + + + + + + | Globulin | 2.5Comment: Testing | 1.3 - 4.9 g/dL | EXTERNAL | | | | performed at [facility], [address] | | LAB | | | | [address], | | | | | | [place] [address] | | | | + + + + + + | A/G Ratio | 1.4Comment: Testing | 1.0 - 2.4 | EXTERNAL | | | | performed at [facility], [address] | | LAB | | | | [address], | | | | | | [place] [address] | | | | + + + + + + | Bilirubin | 0.9Comment: Testing | 0.1 - 1.5 mg/dL | EXTERNAL | | | Total | performed at [facility], [address] | | LAB | | | | [address], | | | | | | [place] [address] | | | | + + + + + + | ALP, | 72Comment: Testing | 35 - 115 U/L | EXTERNAL | | | External | performed at [facility], [address] | | LAB | | | [address], | | | | | | [place] [address] | | | | + + + + + + | AST | 22Comment: Testing | 10 - 45 U/L | EXTERNAL | | | | performed at [facility], [address] | | LAB | | | | [address], | | | | | | [place] [address] | | | | + + + + + + | ALT | 17Comment: Testing | 10 - 65 U/L | EXTERNAL | | | | performed at [facility], [address] | | LAB | | | | [address], | | | | | | [place] [address] | | | | + + + [...] | | | | | | at [facility], [address] | | | | | | [address], | | | | | | [place] [address] | | | | + + + [...] | + + + | Patient Name: YUMIKO PEGUERO Date of : 1935 | | | Performing Physician: Heidy Ceja MD | | | | | [...] TR maxP.12 mmHg TR Vmax: 3.12 m/s Vascular Tech: | | | KE Authenticated by: Heidy Ceja MD Report Date/Time: 09-26-2014 | | | 11:45:00 | | + + + + + | Procedure Note | + + | Pineda Gomez Conversion - 01/30/2019 8:18 AM PDT Patient Name: Crys PEGUERO of | | : 1935 Performing Physician: Heidy Ceja | | MD INDICATIONS E | [...] 44.12 mmHgTR maxP.12 mmHgTR Vmax: 3.12 m/s Vascular Tech: Joseticated by: | | Heidy Alqaisi MDReport Date/Time: 09-26-2014 11:45:00 IMPRESSION: 1. Overall [...] |TR Vmax: 3.12 m/s | | | |Vascular Tech: KE | |Authenticated by: Heidy Ceja MD | |Report Date/Time: 09-26-2014 11:45:00 [...] + + | [facility] | EXTERNAL LAB | + + + + +---------+ + + | Performing | Address | City/State/Zipcode | Phone Number | | Organization | | | | + +---------+ + + | EXTERNAL LAB | | | | + +---------+ + + Prateek RILEY (09/26/2014 3:50 AM PDT) + + + [...] | | | | | performed at [facility];[address] | | | | | | [address];[place], [place] | | | | | | [address] | | | | + + + [...] + +---------+ + + External Lab: CBC (09/26/2014 3:50 AM PDT) + + + + + + | Component | Value | Ref Range | Performed | Pathologist | | | | | At | Signature | + + + + + + | WBC | 7.80Comment: Testing | 3.80 - 11.00 | EXTERNAL | | | | performed at [facility], [address] | K/uL | LAB | | | | [address], | | | | | | [place] [address] | | | | + + + + + + | Non- | 4.56Comment: Testing | 3.70 - 5.10 | EXTERNAL | | | Red Blood | performed at [facility], [address] | M/uL | LAB | | | Cells | [address], | | | | | Counted | [place] [address] | | | | + + + + + + | Hemoglobin | 13.5Comment: Testing | 11.3 - 15.5 | EXTERNAL | | | | performed at [facility], [address] | g/dL | LAB | | | | [address], | | | | | | [place] [address] | | | | + + + + + + | Hematocrit, | 40.5Comment: Testing | 34.0 - 46.0 % | EXTERNAL | | | POC | performed at [facility], [address] | | LAB | | | | [address], | | | | | | [place] [address] | | | | + + + + + + | MCV | 88.8Comment: Testing | 80.0 - 100.0 fl | EXTERNAL | | | | performed at [facility], [address] | | LAB | | | | [address], | | | | | | [place] [address] | | | | + + + + + + | MCH | 29.7Comment: Testing | 27.0 - 34.0 pg | EXTERNAL | | | | performed at [facility], [address] | | LAB | | | | [address], | | | | | | [place] [address] | | | | + + + + + + | MCHC | 33.4Comment: Testing | 32.0 - 35.5 | EXTERNAL | | | | performed at [facility], [address] | g/dL | LAB | | | | [address], | | | | | | [place] [address] | | | | + + + + + + | RDW-CV | 44.6Comment: Testing | 37 - 53 fl | EXTERNAL | | | | performed at [facility], [address] | | LAB | | | | [address], | | | | | | [place] [address] | | | | + + + + + + | Platelet | 215Comment: Testing | 150 - 400 K/uL | EXTERNAL | | | Count | performed at [facility], [address] | | LAB | | | Plasma | [address], | | | | | | [place] [address] | | | | + + + + + + | MPV | 8.4Comment: Testing | fl | EXTERNAL | | | | performed at [facility], [address] | | LAB | | | | [address], | | | | | | [place] [address] | | | | + + + + + + | Differentia | AUTOMATEDComment: | | EXTERNAL | | | l Type | Testing performed at | | LAB | | | | [facility], [address] | | | | | | [place] | | | | | | [address] | | | | + + + + + + | % Segmented | 69.91Comment: Testing | % | EXTERNAL | | | | performed at [facility], [address] | | LAB | | | Neutrophils | [address], | | | | | | [place] [address] | | | | + + + + + + | % | 20.30Comment: Testing | % | EXTERNAL | | | Lymphocytes | performed at [facility], [address] | | LAB | | | | [address], | | | | | | [place] [address] | | | | + + + + + + | % Monocytes | 6.60Comment: Testing | % | EXTERNAL | | | | performed at [facility], [address] | | LAB | | | | [address], | | | | | | [place] [address] | | | | + + + + + + | % | 2.36Comment: Testing | % | EXTERNAL | | | Eosinophils | performed at [facility], [address] | | LAB | | | | [address], | | | | | | [place] [address] | | | | + + + + + + | % Basophils | 0.83Comment: Testing | % | EXTERNAL | | | | performed at [facility], [address] | | LAB | | | | [address], | | | | | | [place] [address] | | | | + + + + + + | Absolute | 5.45Comment: Testing | 1.90 - 7.40 | EXTERNAL | | | Segmented | performed at [facility], [address] | K/uL | LAB | | | Neutrophils | [address], | | | | | | [place] [address] | | | | + + + + + + | Absolute | 1.58Comment: Testing | 1.00 - 3.90 | EXTERNAL | | | Lymphocytes | performed at [facility], [address] | K/uL | LAB | | | | [address], | | | | | | [place] [address] | | | | + + + + + + | Absolute | 0.52Comment: Testing | 0.00 - 0.80 | EXTERNAL | | | Monocytes | performed at [facility], [address] | K/uL | LAB | | | | [address], | | | | | | [place] [address] | | | | + + + + + + | Absolute | 0.18Comment: Testing | 0.00 - 0.50 | EXTERNAL | | | Eosinophils | performed at [facility], [address] | K/uL | LAB | | | | [address], | | | | | | [place] [address] | | | | + + + + + + | Absolute | 0.07Comment: Testing | 0.00 - 0.10 | EXTERNAL | | | Basophils | performed at [facility], [address] | K/uL | LAB | | | | [address], | | | | | | [place] [address] | | | | + + + [...] | | | | | [place] [address] | | | | + + + + + + | K | 3.5Comment: Testing | 3.5 - 4.9 | EXTERNAL | | | | performed at [facility], [address] | mmol/L | LAB | | | | [address], | | | | | | [place] [address] | | | | + + + + + + | Cl | 108Comment: Testing | 99 - 109 mmol/L | EXTERNAL | | | | performed at [facility], [address] | | LAB | | | | [address], | | | | | | [place] [address] | | | | + + + + + + | CO2 | 22 (L)Comment: Testing | 23 - 32 mmol/L | EXTERNAL | | | | performed at [facility], [address] | | LAB | | | | [address], | | | | | | [place] [address] | | | | + + + + + + | Anion Gap | 13Comment: Testing | 5 - 20 mmol/L | EXTERNAL | | | | performed at [facility], [address] | | LAB | | | | [address], | | | | | | [place] [address] | | | | + + + + + + | Glucose, | 120 (H)Comment: Testing | 65 - 99 mg/dL | EXTERNAL | | | Fasting | performed at [facility], [address] | | LAB | | | [address], | | | | | | [place] [address] | | | | + + + + + + | BUN | 10Comment: Testing | 8 - 25 mg/dL | EXTERNAL | | | | performed at [facility], [address] | | LAB | | | | [address], | | | | | | [place] [address] | | | | + + + + + + | Creatinine | 0.68Comment: Testing | 0.50 - 1.00 | EXTERNAL | | | | performed at [facility], [address] | mg/dL | LAB | | | | [address], | | | | | | [place] [address] | | | | + + + + + + | BUN/Creatin | 15Comment: Testing | | EXTERNAL | | | ine Ratio | performed at [facility], [address] | | LAB | | | | [address], | | | | | | [place] [address] | | | | + + + + + + | Calcium | 8.8Comment: Testing | 8.5 - 10.5 | EXTERNAL | | | | performed at [facility], [address] | mg/dL | LAB | | | | [address], | | | | | | [place] [address] | | | | + + + [...] | | | | | | at [facility], [address] | | | | | | [address], | | | | | | [place] [address] | | | | + + + [...] + + | Historically converted procedure from [facility] Epic environment | EXTERNAL LAB | + [...] | right common femoral arteriotomy using a 6-Ethiopian Mynx closure | | | device. INDICATIONS [...] lidocaine. Right radial artery cannulized with a 6-Ethiopian | | | Slender sheath. Verapamil 2.5 [...] right common femoral artery cannulized with a 6-Ethiopian sheath. | | | Right common femoral [...] was exchanged | | | for a 5-Ethiopian FR4 diagnostic catheter that was advanced to [...] was | | | exchanged for a 6-Ethiopian JR4 guide that was advanced to the [...] was closed using a | | | 6-Ethiopian Mynx closure device with good hemostasis. The [...] further evaluation. | | | Read by HEIDY CEJA MD 09/25/2014 05:25 P | | [...] the right common femoral arteriotomy using a 6-Ethiopian Mynx | | closure device. | | [...] radial artery cannulized with a | | 6-Ethiopian Slender sheath. Verapamil 2.5 mg, nitroglycerin 200 [...] femoral artery | | cannulized with a 6-Ethiopian sheath. Right common femoral angiogram was | [...] a guidewire it was exchanged for a 5-Ethiopian FR4 diagnostic catheter | | that was [...] guidewire the catheter was exchanged for a 6-Ethiopian JR4 guide that | | was advanced [...] removed. The arteriotomy was closed using a 6-Ethiopian Mynx closure | | device with good [...] evaluation. | | | | Read by HEIDY CEJA MD 09/25/2014 05:25 P | | [...] | right common femoral arteriotomy using a 6-Ethiopian Mynx closure | | | device. INDICATIONS [...] lidocaine. Right radial artery cannulized with a 6-Ethiopian | | | Slender sheath. Verapamil 2.5 [...] right common femoral artery cannulized with a 6-Ethiopian sheath. | | | Right common femoral [...] was exchanged | | | for a 5-Ethiopian FR4 diagnostic catheter that was advanced to [...] was | | | exchanged for a 6-Ethiopian JR4 guide that was advanced to the [...] was closed using a | | | 6-Ethiopian Mynx closure device with good hemostasis. The [...] regurgitation. 2. | | | Consider having YAQUEILN and viability study for further evaluation. | | | Read by HEIDY CEJA MD 09/25/2014 05:25 P | | [...] the right common femoral arteriotomy using a 6-Ethiopian Mynx | | closure device. | | [...] radial artery cannulized with a | | 6-Ethiopian Slender sheath. Verapamil 2.5 mg, nitroglycerin 200 [...] femoral artery | | cannulized with a 6-Ethiopian sheath. Right common femoral angiogram was | | performed in the ALINEZ view. Over a guidewire an FL4 diagnostic catheter was | | advanced to the ascending aorta selectively engaging the left main. | | Contrast was injected. Selective angiogram for the left main, LAD, left | | circumflex artery performed in different views. | | | | Over a guidewire it was exchanged for a 5-Ethiopian FR4 diagnostic catheter | | that was [...] guidewire the catheter was exchanged for a 6-Ethiopian JR4 guide that | | was advanced [...] removed. The arteriotomy was closed using a 6-Ethiopian Mynx closure | | device with good [...] evaluation. | | | | Read by HEIDY CEJA MD 09/25/2014 05:25 P | | [...] | right common femoral arteriotomy using a 6-Ethiopian Mynx closure | | | device. INDICATIONS [...] lidocaine. Right radial artery cannulized with a 6-Ethiopian | | | Slender sheath. Verapamil 2.5 [...] right common femoral artery cannulized with a 6-Ethiopian sheath. | | | Right common femoral [...] was exchanged | | | for a 5-Ethiopian FR4 diagnostic catheter that was advanced to [...] was | | | exchanged for a 6-Ethiopian JR4 guide that was advanced to the [...] was closed using a | | | 6-Ethiopian Mynx closure device with good hemostasis. The [...] further evaluation. | | | Read by HEIDY CEJA MD 09/25/2014 05:25 P | | [...] the right common femoral arteriotomy using a 6-Ethiopian Mynx | | closure device. | | [...] radial artery cannulized with a | | 6-Ethiopian Slender sheath. Verapamil 2.5 mg, nitroglycerin 200 [...] femoral artery | | cannulized with a 6-Ethiopian sheath. Right common femoral angiogram was | [...] a guidewire it was exchanged for a 5-Ethiopian FR4 diagnostic catheter | | that was [...] guidewire the catheter was exchanged for a 6-Ethiopian JR4 guide that | | was advanced [...] removed. The arteriotomy was closed using a 6-Ethiopian Mynx closure | | device with good [...] evaluation. | | | | Read by HEIDY CEJA MD 09/25/2014 05:25 P | | [...] | | | Clotting | performed at [facility];[address] | seconds | LAB | | | time, POC | [address];[place], [place] | | | | | | [address] | | | | + + + [...] + + | Historically converted procedure from [facility] Epic environment | EXTERNAL LAB | + [...] | + + + | Patient Name: YUMIKO PEGUERO Date of : 1935 | | | Performing Physician: Heidy Ceja MD | | | | | [...] | | | structurally normal. Tricuspid Valve: Zbub-xu-[id number] tricuspid | | | regurgitation present. Tricuspid [...] TV A Maciel: 0.52 m/s TV Dec Ponce: | | | 1.34 m/s2 TV Dec Time: 304.58 ms TV E Maciel: 0.41 m/s TV E/A | | | Ratio: 0.77 Vascular Tech: ANGEL Authenticated by: Heidy Ceja MD | | | Report Date/Time: 09-25-2014 16:07:34 | | + + + + + | Procedure Note | + + | Pineda Gomez Conversion - 01/30/2019 8:18 AM PDT Patient Name: Yahaira PEGUERO | | : 1935 Performing Physician: Heidy Ceja | | MD INDICATIONS S | | OB CHF, NEW [...] | tricuspid valve appears structurally normal.Tricuspid Valve: Ghle-pv-fvrvvfat tricuspid | | regurgitation present.Tricuspid Valve: There [...] (A-L): | | 28.92 ml/m2LAAs A2C: 18.45 [id number] A-L A2C: 51.84 mlLAESV MOD A2C: 50.96 mlLALs | | A2C: 5.57 cmLAAs A4C: 17.24 [id number] A-L A4C: 48.66 mlLAESV MOD A4C: 48.28 [...] 28.92 cmAVA Vmax: 2.31 cm2AVA (VTI): 2.22 [id number] (Vmax): | | 0.00 cm2/m2AVAI (VTI): 0.00 cm2/m2LVCI Dopp: 2.46 l/moby8MTCV Dopp: 4.43 | | l/minHR: 68.95 BPMLVOT [...] A Maciel: 0.52 m/sTV | | Dec Ponce: 1.34 m/s2TV Dec Time: 304.58 msTV E Maciel: 0.41 m/sTV E/A Ratio: 0.77 | | Vascular Tech: KEAuthenticated by: Heidy Ceja MDReport Date/Time: 09-25-2014 16:07:34 | | [...] A Maciel: 0.52 m/s | |TV Dec Ponce: 1.34 m/s2 | |TV Dec Time: 304.58 ms | |TV E Maciel: 0.41 m/s | |TV E/A Ratio: 0.77 | | | |Vascular Tech: ANGEL | |Authenticated by: Heidy Ceja MD | |Report Date/Time: 09-25-2014 16:07:34 [...] | | | | | performed at [facility];[address] | | | | | [address];[place], [place] | | | | | | [address] | | | | + + + [...] | | | | | | ACUTE NM Testing | | | | | | performed at [facility];[address] | | | | | | [facility];[place], [place] | | | | | | [address] | | | | + + + [...] | | | Patient | performed at [facility];[address] | | LAB | | | | [address];[place], [place] | | | | | | [address] | | | | + + + [...] | | | | | performed at [facility] | | | | | | [address];[place], [place] | | | | | | [address] | | | | + + + [...] | | | | | [place] [address] | | | | + + + + + + | Non- | 4.80Comment: Testing | 3.70 - 5.10 | EXTERNAL | | | Red Blood | performed at [facility], [address] | M/uL | LAB | | | Cells | [address], | | | | | Counted | [place] [address] | | | | + + + + + + | Hemoglobin | 14.0Comment: Testing | 11.3 - 15.5 | EXTERNAL | | | | performed at [facility], [address] | g/dL | LAB | | | | [address], | | | | | | [place] [address] | | | | + + + + + + | Hematocrit, | 43.0Comment: Testing | 34.0 - 46.0 % | EXTERNAL | | | POC | performed at [facility], [address] | | LAB | | | | [address], | | | | | | [place] [address] | | | | + + + + + + | MCV | 89.5Comment: Testing | 80.0 - 100.0 fl | EXTERNAL | | | | performed at [facility], [address] | | LAB | | | | [address], | | | | | | [place] [address] | | | | + + + + + + | MCH | 29.1Comment: Testing | 27.0 - 34.0 pg | EXTERNAL | | | | performed at [facility], [address] | | LAB | | | | [address], | | | | | | [place] [address] | | | | + + + + + + | MCHC | 32.5Comment: Testing | 32.0 - 35.5 | EXTERNAL | | | | performed at [facility], [address] | g/dL | LAB | | | | [address], | | | | | | [place] [address] | | | | + + + + + + | RDW-CV | 44.6Comment: Testing | 37 - 53 fl | EXTERNAL | | | | performed at [facility], [address] | | LAB | | | | [address], | | | | | | [place] [address] | | | | + + + + + + | Platelet | 238Comment: Testing | 150 - 400 K/uL | EXTERNAL | | | Count | performed at [facility], [address] | | LAB | | | Plasma | [address], | | | | | | [place] [address] | | | | + + + + + + | MPV | 8.2Comment: Testing | fl | EXTERNAL | | | | performed at [facility], [address] | | LAB | | | | [address], | | | | | | [place] [address] | | | | + + + + + + | Differentia | AUTOMATEDComment: | | EXTERNAL | | | l Type | Testing performed at | | LAB | | | | [facility], [address] | | | | | | [place] | | | | | | [address] | | | | + + + + + + | % Segmented | 66.49Comment: Testing | % | EXTERNAL | | | | performed at [facility], [address] | | LAB | | | Neutrophils | [address], | | | | | | [place] [address] | | | | + + + + + + | % | 22.73Comment: Testing | % | EXTERNAL | | | Lymphocytes | performed at [facility], [address] | | LAB | | | | [address], | | | | | | [place] [address] | | | | + + + + + + | % Monocytes | 5.74Comment: Testing | % | EXTERNAL | | | | performed at [facility], [address] | | LAB | | | | [address], | | | | | | [place] [address] | | | | + + + + + + | % | 4.08Comment: Testing | % | EXTERNAL | | | Eosinophils | performed at [facility], [address] | | LAB | | | | [address], | | | | | | [place] [address] | | | | + + + + + + | % Basophils | 0.96Comment: Testing | % | EXTERNAL | | | | performed at [facility], [address] | | LAB | | | | [address], | | | | | | [place] [address] | | | | + + + + + + | Absolute | 5.13Comment: Testing | 1.90 - 7.40 | EXTERNAL | | | Segmented | performed at [facility], [address] | K/uL | LAB | | | Neutrophils | [address], | | | | | | [place] [address] | | | | + + + + + + | Absolute | 1.76Comment: Testing | 1.00 - 3.90 | EXTERNAL | | | Lymphocytes | performed at [facility], [address] | K/uL | LAB | | | | [address], | | | | | | [place] [address] | | | | + + + + + + | Absolute | 0.44Comment: Testing | 0.00 - 0.80 | EXTERNAL | | | Monocytes | performed at [facility], [address] | K/uL | LAB | | | | [address], | | | | | | [place] [address] | | | | + + + + + + | Absolute | 0.32Comment: Testing | 0.00 - 0.50 | EXTERNAL | | | Eosinophils | performed at [facility], [address] | K/uL | LAB | | | | [address], | | | | | | [place] [address] | | | | + + + + + + | Absolute | 0.07Comment: Testing | 0.00 - 0.10 | EXTERNAL | | | Basophils | performed at [facility], [address] | K/uL | LAB | | | | [address], | | | | | | [place] [address] | | | | + + + [...] | | | performed at [facility], [address] | uIU/mL | LAB | | | | [address], | | | | | | [place] [address] | | | | + + + [...] | | | (REF) | performed at [facility], [address] | | LAB | | | | [address], | | | | | | [place] [address] | | | | + + + [...] EXTERNAL | | | | performed at [facility], [address] | | LAB | | | | [address], | | | | | | [place] [address] | | | | + + + [...] EXTERNAL | | | | performed at [facility];[address] | | LAB | | | | [address];[place] | | | | | | [address] | | | | + + + [...] EXTERNAL | | | | performed at [facility], [address] | | LAB | | | | [address], | | | | | | [place] [address] | | | | + + + [...] | EXTERNAL | | | A1c | [place] Diabetes | | LAB | | | [...] | | | | | performed at [facility], [address] | | | | | | [address], | | | | | | [place] [address] | | | | + + + [...] | | | | | performed at [facility], [address] | | | | | | [address] [facility], | | | | | | [place] [address] | | | | + + + [...] | | LAB | | | | [address], | | | | | | [place] [address] | | | | + + + + + + | Triglycerid | 122Comment: Testing | mg/dL | EXTERNAL | | | es | performed at [facility], [address] | | LAB | | | | [address], | | | | | | [place] [address] | | | | + + + + + + | HDL | 37 (L)Comment: Testing | mg/dL | EXTERNAL | | | | performed at [facility], [address] | | LAB | | | | [address], | | | | | | [place] [address] | | | | + + + + + + | LDL, | 60Comment: Testing | mg/dL | EXTERNAL | | | Calculated | performed at [facility], [address] | | LAB | | | | [address], | | | | | | [place] [address] | | | | + + + [...] | | | | | [place] [address] | | | | + + + + + + | K | 3.6Comment: Testing | 3.5 - 4.9 | EXTERNAL | | | | performed at [facility], [address] | mmol/L | LAB | | | | [address], | | | | | | [place] [address] | | | | + + + + + + | Cl | 105Comment: Testing | 99 - 109 mmol/L | EXTERNAL | | | | performed at [facility], [address] | | LAB | | | | [address], | | | | | | [place] [address] | | | | + + + + + + | CO2 | 24Comment: Testing | 23 - 32 mmol/L | EXTERNAL | | | | performed at [facility], [address] | | LAB | | | | [address], | | | | | | [place] [address] | | | | + + + + + + | Anion Gap | 12Comment: Testing | 5 - 20 mmol/L | EXTERNAL | | | | performed at [facility], [address] | | LAB | | | | [address], | | | | | | [place] [address] | | | | + + + + + + | Glucose, | 154 (H)Comment: Testing | 65 - 99 mg/dL | EXTERNAL | | | Fasting | performed at [facility], [address] | | LAB | | | | [address], | | | | | | [place] [address] | | | | + + + + + + | BUN | 15Comment: Testing | 8 - 25 mg/dL | EXTERNAL | | | | performed at [facility], [address] | | LAB | | | | [address], | | | | | | [place] [address] | | | | + + + + + + | Creatinine | 0.90Comment: Testing | 0.50 - 1.00 | EXTERNAL | | | | performed at [facility], [address] | mg/dL | LAB | | | | [address], | | | | | | [place] [address] | | | | + + + + + + | BUN/Creatin | 17Comment: Testing | | EXTERNAL | | | ine Ratio | performed at [facility], [address] | | LAB | | | | [address], | | | | | | [place] [address] | | | | + + + + + + | Calcium | 9.3Comment: Testing | 8.5 - 10.5 | EXTERNAL | | | | performed at [facility], [address] | mg/dL | LAB | | | | [address], | | | | | | [place] [address] | | | | + + + [...] | | | | | | at [facility], [address] | | | | | | [address], | | | | | | [place] [address] | | | | + + + [...] | | | Patient | performed at [facility];[address] | | LAB | | | | [address];[place], [place] | | | | | | [address] | | | | + + + [...] | | | | | | ACUTE NM Testing | | | | | | performed at [facility];[address] | | | | | | [address];[place], [place] | | | | | | [address] | | | | + + + [...] | Testing performed | | | at [facility], [address] [place] [address] | | + + + + +---------+ [...] EXTERNAL | | | | performed at [facility], [address] | | LAB | | | | [address], | | | | | | [place] [address] | | | | + + + + + + | Clarity, | CLEARComment: Testing | | EXTERNAL | | | Urine | performed at [facility], [address] | | LAB | | | | [address], | | | | | | [place] [address] | | | | + + + + + + | Specific | 1.015Comment: Testing | 1.002 - 1.030 | EXTERNAL | | | [place], | performed at [facility], [address] | | LAB | | | Urine | [address], | | | | | | [place] [address] | | | | + + + + + + | Leukocyte | SMALL (A)Comment: | | EXTERNAL | | | Esterase, | Testing performed at | | LAB | | | Urine | [facility], [address] | | | | | | [place] | | | | | | [address] | | | | + + + + + + | Nitrite, | NEGATIVEComment: Testing | | EXTERNAL | | | Urine | performed at [facility], [address] | | LAB | | | | [address], | | | | | | [place] [address] | | | | + + + + + + | Urobilinoge | 0.2Comment: Testing | mg/dL | EXTERNAL | | | n, Urine | performed at [facility], [address] | | LAB | | | | [address], | | | | | | [place] [address] | | | | + + + + + + | Protein, | NEGATIVEComment: Testing | mg/dL | EXTERNAL | | | Urine | performed at [facility], [address] | | LAB | | | | [address], | | | | | | [place] [address] | | | | + + + + + + | pH, Urine | 6.5Comment: Testing | 5.0 - 8.0 | EXTERNAL | | | | performed at [facility], [address] | | LAB | | | | [address], | | | | | | [place] [address] | | | | + + + + + + | Blood, | NEGATIVEComment: Testing | | EXTERNAL | | | Urine | performed at [facility], [address] | | LAB | | | | [address], | | | | | | [place] [address] | | | | + + + + + + | Ketones | 15 (A)Comment: Testing | mg/dL | EXTERNAL | | | | performed at [facility], [address] | | LAB | | | | [address], | | | | | | [place] [address] | | | | + + + + + + | Bilirubin, | NEGATIVEComment: Testing | | EXTERNAL | | | Urine | performed at [facility], [address] | | LAB | | | | [address], | | | | | | [place] [address] | | | | + + + + + + | Glucose, | NEGATIVEComment: Testing | mg/dL | EXTERNAL | | | Urine | performed at [facility], [address] | | LAB | | | | [address], | | | | | | [place] [address] | | | | + + + + + + | WBC, UA | 11-15Comment: Testing | 0 - 5 /hpf | EXTERNAL | | | | performed at [facility], [address] | | LAB | | | [address], | | | | | | [place] [address] | | | | + + + + + + | RBC, UA | 0-2Comment: Testing | 0 - 5 /hpf | EXTERNAL | | | | performed at [facility], [address] | | LAB | | | | [address], | | | | | | [place] [address] | | | | + + + + + + | Epithelial | 26-50Comment: Testing | /lpf | EXTERNAL | | | Cells | performed at [facility], [address] | | LAB | | | | [address], | | | | | | [place] [address] | | | | + + + + + + | Bacteria, | 2+ (A)Comment: CULTURE | | EXTERNAL | | | UA | TO FOLLOWTesting | | LAB | | | | performed at [facility], [address] | | | | | | [address], | | | | | | [place] [address] | | | | + + + + + + | HYALINE | 0-2Comment: Testing | | EXTERNAL | | | CASTS UA | performed at [facility], [address] | | LAB | | | | [address], | | | | | | [place] [address] | | | | + + + [...] EXTERNAL | | | | performed at [facility];[address] | K/uL | LAB | | | | [address];[place] | | | | | | [address] | | | | + + + + + -+ | Non- | 4.88Comment: Testing | 3.70 - 5.10 | EXTERNAL | | | Red Blood | performed at [facility];[address] | M/uL | LAB | | | Cells | [address];[place] | | | | | Counted | [address] | | | | + + + + + -+ | Hemoglobin | 14.2Comment: Testing | 11.3 - 15.5 | EXTERNAL | | | | performed at [facility];[address] | g/dL | LAB | | | | [address];[place] | | | | | | [address] | | | | + + + + + -+ | Hematocrit, | 43.7Comment: Testing | 34.0 - 46.0 % | EXTERNAL | | | POC | performed at [facility];[address] | | LAB | | | | [address];[place] | | | | | | [address] | | | | + + + + + -+ | MCV | 89.4Comment: Testing | 80.0 - 100.0 fl | EXTERNAL | | | | performed at [facility];[address] | | LAB | | | | [address];[place] | | | | | | [address] | | | | + + + + + -+ | MCH | 29.2Comment: Testing | 27.0 - 34.0 pg | EXTERNAL | | | | performed at [facility];[address] | | LAB | | | | [address];[place] | | | | | | [address] | | | | + + + + + -+ | MCHC | 32.6Comment: Testing | 32.0 - 35.5 | EXTERNAL | | | | performed at [facility];[address] | g/dL | LAB | | | | [address];[place] | | | | | | [address] | | | | + + + + + -+ | RDW-CV | 45.5Comment: Testing | 37 - 53 fl | EXTERNAL | | | | performed at [facility];[address] | | LAB | | | | [address];[place] | | | | | | [address] | | | | + + + + + -+ | Platelet | 247Comment: Testing | 150 - 400 K/uL | EXTERNAL | | | Count | performed at [facility];[address] | | LAB | | | Plasma | [address];[place] | | | | | | [address] | | | | + + + + + -+ | MPV | 7.5Comment: Testing | fl | EXTERNAL | | | | performed at [facility];[address] | | LAB | | | | [address];[place] | | | | | | [address] | | | | + + + + + -+ | Differentia | AUTOMATEDComment: | | EXTERNAL | | | l Type | Testing performed at | | LAB | | | | [facility];[address];[place] [address] | | | | + + + + + -+ | % Segmented | 60.73Comment: Testing | % | EXTERNAL | | | | performed at [facility];[address] | | LAB | | | Neutrophils | [address];[place] | | | | | | [address] | | | | + + + + + -+ | % | 28.34Comment: Testing | % | EXTERNAL | | | Lymphocytes | performed at [facility];[address] | | LAB | | | | [address];[place] | | | | | | [address] | | | | + + + + + -+ | % Monocytes | 6.65Comment: Testing | % | EXTERNAL | | | | performed at [facility];[address] | | LAB | | | | [address];[place] | | | | | | [address] | | | | + + + + + -+ | % | 3.10Comment: Testing | % | EXTERNAL | | | Eosinophils | performed at [facility];[address] | | LAB | | | | [address];[place] | | | | | | [address] | | | | + + + + + -+ | % Basophils | 1.18Comment: Testing | % | EXTERNAL | | | | performed at [facility];[address] | | LAB | | | | [address];[place] | | | | | | [address] | | | | + + + + + -+ | Absolute | 4.12Comment: Testing | 1.90 - 7.40 | EXTERNAL | | | Segmented | performed at [facility];[address] | K/uL | LAB | | | Neutrophils | [address];[place] | | | | | | [address] | | | | + + + + + -+ | Absolute | 1.93Comment: Testing | 1.00 - 3.90 | EXTERNAL | | | Lymphocytes | performed at [facility];[address] | K/uL | LAB | | | | [address];[place] | | | | | | [address] | | | | + + + + + -+ | Absolute | 0.45Comment: Testing | 0.00 - 0.80 | EXTERNAL | | | Monocytes | performed at [facility];[address] | K/uL | LAB | | | | [address];[place] | | | | | | [address] | | | | + + + + + -+ | Absolute | 0.21Comment: Testing | 0.00 - 0.50 | EXTERNAL | | | Eosinophils | performed at [facility];[address] | K/uL | LAB | | | | [address];[place] | | | | | | [address] | | | | + + + + + -+ | Absolute | 0.08Comment: Testing | 0.00 - 0.10 | EXTERNAL | | | Basophils | performed at [facility];[address] | K/uL | LAB | | | | [address];[place] | | | | | | [address] | | | | + + + + + -+ | Na | 143Comment: Testing | 135 - 143 | EXTERNAL | | | | performed at [facility];[address] | mmol/L | LAB | | | | [address];[place] | | | | | | [address] | | | | + + + + + -+ | K | 3.6Comment: Testing | 3.5 - 4.9 | EXTERNAL | | | | performed at [facility];[address] | mmol/L | LAB | | | | [address];[place] | | | | | | [address] | | | | + + + + + -+ | Cl | 109Comment: Testing | 99 - 109 mmol/L | EXTERNAL | | | | performed at [facility];[address] | | LAB | | | | [address];[place] | | | | | | [address] | | | | + + + + + -+ | CO2 | 25Comment: Testing | 23 - 32 mmol/L | EXTERNAL | | | | performed at [facility];[address] | | LAB | | | | [address];[place] | | | | | | [address] | | | | + + + + + -+ | Anion Gap | 13Comment: Testing | 5 - 20 mmol/L | EXTERNAL | | | | performed at [facility];[address] | | LAB | | | | [address];[place] | | | | | | [address] | | | | + + + + + -+ | Glucose, | 114 (H)Comment: Testing | 65 - 99 mg/dL | EXTERNAL | | | Fasting | performed at [facility];[address] | | LAB | | | | [address];[place] | | | | | | [address] | | | | + + + + + -+ | BUN | 9Comment: Testing | 8 - 25 mg/dL | EXTERNAL | | | | performed at [facility];[address] | | LAB | | | | [address];[place] | | | | | | [address] | | | | + + + + + -+ | Creatinine | 0.79Comment: Testing | 0.50 - 1.00 | EXTERNAL | | | | performed at [facility];[address] | mg/dL | LAB | | | | [address];[place] | | | | | | [address] | | | | + + + + + -+ | BUN/Creatin | 11Comment: Testing | | EXTERNAL | | | ine Ratio | performed at [facility];[address] | | LAB | | | | [address];[place] | | | | | | [address] | | | | + + + + + -+ | Calcium | 8.8Comment: Testing | 8.5 - 10.5 | EXTERNAL | | | | performed at [facility];[address] | mg/dL | LAB | | | | [address];[place] | | | | | | [address] | | | | + + + + + -+ | Protein, | 7.2Comment: Testing | 6.3 - 8.2 g/dL | EXTERNAL | | | Total | performed at [facility];[address] | | LAB | | | | [address];[place] | | | | | | [address] | | | | + + + + + -+ | Albumin | 3.7Comment: Testing | 3.3 - 4.8 g/dL | EXTERNAL | | | | performed at [facility];[address] | | LAB | | | | [address];[place] | | | | | | [address] | | | | + + + + + -+ | Globulin | 3.5Comment: Testing | 1.3 - 4.9 g/dL | EXTERNAL | | | | performed at [facility];[address] | | LAB | | | | [address];[place] | | | | | | [address] | | | | + + + + + -+ | A/G Ratio | 1.1Comment: Testing | 1.0 - 2.4 | EXTERNAL | | | | performed at [facility];[address] | | LAB | | | | [address];[place] | | | | | | [address] | | | | + + + + + -+ | Bilirubin | 0.8Comment: Testing | 0.1 - 1.5 mg/dL | EXTERNAL | | | Total | performed at [facility];[address] | | LAB | | | | [address];[place] | | | | | | [address] | | | | + + + + + -+ | ALP, | 104Comment: Testing | 35 - 115 U/L | EXTERNAL | | | External | performed at [facility];[address] | | LAB | | | | [address];[place] | | | | | | [address] | | | | + + + + + -+ | AST | 26Comment: Testing | 10 - 45 U/L | EXTERNAL | | | | performed at [facility];[address] | | LAB | | | | [address];[place] | | | | | | [address] | | | | + + + + + -+ | ALT | 31Comment: Testing | 10 - 65 U/L | EXTERNAL | | | | performed at [facility];[address] | | LAB | | | | [address];[place] | | | | | | [address] | | | | + + + [...] | | | | | | at [facility];[address] | | | | | [address];[place] [address] | | | | + + + + + -+ | CK, Total | 42Comment: Testing | 30 - 240 U/L | EXTERNAL | | | | performed at [facility];[address] | | LAB | | | | [address];[place] | | | | | | [address] | | | | + + + [...] | | | | | performed at [facility];[address] | | | | | | [address];[place] | | | | | | [address] | | | | + + + + + -+ | aPTT, | 30Comment: Testing | 23 - 32 seconds | EXTERNAL | | | Patient | performed at [facility];[address] | | LAB | | | | [address];[place] | | | | | | [address] | | | | + + + + + -+ | CK-MB | 1.1Comment: Testing | 0.5 - 3.6 ng/mL | EXTERNAL | | | | performed at [facility];[address] | | LAB | | | | [address];[place] | | | | | | [address] | | | | + + + [...] EXTERNAL | | | | performed at [facility];88 | | LAB | | | | [address] [facility];[place], [place] | | | | | | [address] | | | | + + + [...] | Procedure Note | + + | JasonPineda Conversion - 01/30/2019 8:18 AM PDT This is [...] | | | | | ONLY, -COMPUTER (500), | | | | | | scientific editor Nadia Smith | | | | | | (18) on 09/24/2014 | | | | | | 5:29:47 PM | | | | + + + + + + + + | Specimen | + + | | + + + + + | Narrative | Performed At | + + + | [facility] | EXTERNAL LAB | + [...] + + | CHF (congestive heart failure) ([facility]) Congestive heart failure, unspecified | + + | NSTEMI (non-ST elevated myocardial infarction) ([facility]) Acute myocardial infarction, | | subendocardial infarction, episode of care unspecified | + + documented in this encounter
--- OUTSIDE RECORDS SUMMARY | ~2020-01-23 | XMS | Encounter Summary ---
Demographics + + + | Address | [address] | | | [place] [address] | + + + | Home Phone | | + + + | Preferred Language | Unknown | + + + | Marital Status | | + + + | Caodaism Affiliation | Unknown | + + + | Race | Unknown | + + + | Ethnic Group | Unknown | + + + Author + + + | Author | [facility] | | | and [place] | + + + | Organization | [facility] | | [...] [place], | | | | | [place] [address] | | + + + + + | Linda Roman | ECON | Unknown | | + + + + + Care Team Providers + +------+ + | Care Head Inspector And Center Marker Name | Role | Phone | + +------+ + | Alyssa Joseph | PCP | | + +------+ + Reason for Visit + +--------+ + | Reason | Onset | Comments | | | Date | | + +--------+ + | Referral (Follow up) | 11/22/ | | | | 2019 | | + +--------+ + Encounter Details +--------+ + + + + | Date | Type | Department | Care Team | Description | +--------+ + + + + | 11/22/ | Telephone | [facility] | Nancy Deluca, | Referral (Follow up) | | 2019 | | [place] [address] | [place] | | | | | [place] | | | | | | [address] | | | | | | [phone] | | | +--------+ + + + [...] this encounter Miscellaneous Notes Telephone Encounter - Eva An MD - 11/24/2019 5:25 PM PDTNot my patient, will not sign elephone Encounter - Nancy Deluca RN - 11/23/2019 3:43 PM PDTReceived Home Health referral from Dr. Chandrakant Lloyd. Will you sign plan of care for following discipline(s) and frequencies? SN SOC SN 1- 6 visits x 30 days for assessment and management of meds, pain, safety/fall risk, de pression, diabetes, skin, GI/, nutrition, CP; PT/LINUX KERNEL ENGINEER 1- 6 visits x 30 days to evaluate and treat for pain, safety/fall risk, mobility, ba shauna, safe transfers, HEP, strengthening, and DMEs; OT /MG 1-4 visits x 30 days to evaluate and treat for pain, safety/fall risk, safe transf ers, DMEs, ADLs and adaptions; DIE TECHNICIAN : 2 visits x 14 days for bathing assistance; RT 1 -2 visits in 30 days for evaluation and education regarding respiratory needs.David mills signed by Nancy Deluca RN at 11/23/2019 3:48 PM PDTdocumented in this encounter Plan of [...] | | | | | [place] [id number] | | | | | | [phone] | | | | | | | | +--------+---------+ + + + documented as of this encounter Visit Diagnoses Not on filedocumented in this encounter"
--- OUTSIDE RECORDS SUMMARY | ~2020-01-23 | XMS | Encounter Summary ---
Demographics + + + | Address | [address] | | | [place] [address] | + + + | Home Phone | | + + + | Preferred Language | Unknown | + + + | Marital Status | | + + + | Oriental Orthodox Affiliation | Unknown | + + + | Race | Unknown | + + + | Ethnic Group | Unknown | + + + Author + + + | Author | [facility] | | | and [place] | + + + | Organization | [facility] | | | and [...] [place], | | | | | [place] [address] | | + + + + + | Linda Roman | ECON | Unknown | | + + + + + Care Team Providers + +------+ + | Care [employer] Name | Role | Phone | + [...] + + + + | 11/25/ | Home Care | [place] | [place]rit[place], | RT REPEAT VISIT | | 2020 | Visit | [place] [address] | [address] | | | | | [place] | | | | | | [address] | | | | | | [phone] | | | +--------+ + + + [...] this encounter Last Filed Vital Signs + +---------+ + + | Vital Sign | Reading | Time Taken | Comments | + +---------+ + + | Blood Pressure | - | - | | + +---------+ + + | Pulse | 62 | 11/26/2019 11:30 AM | | | | | PDT | | + +---------+ + + | Temperature | - | - | | + +---------+ + + | Respiratory Rate | - | - | | + +---------+ + + | Oxygen Saturation | 96% | 11/26/2019 11:30 AM | | | | | PDT | | + +---------+ + + | Inhaled Oxygen | - | - | | | Concentration | | | | + +---------+ + + | Weight | - | - | | + +---------+ + + | Height | - | - | | + +---------+ + + | Body Mass Index | - | - | | + +---------+ + + documented in this encounter Plan [...] | | | | | [place] [id number] | | | | | | [phone] | | | | | | | | +--------+---------+ + + + documented as of this encounter Visit Diagnoses Not on filedocumented in this encounter"
--- OUTSIDE RECORDS SUMMARY | ~2020-01-23 | XMS | Encounter Summary ---
Demographics + + + | Address | [address] | | | [place] [address] | + + + | Home Phone | | + + + | Preferred Language | Unknown | + + + | Marital Status | | + + + | Restorationist Affiliation | Unknown | + + + | Race | Unknown | + + + | Ethnic Group | Unknown | + + + Author + + + | Author | [facility] | | | and [place] | + + + | Organization | [facility] | | | and [...] [place], | | | | | [place] [address] | | + + + + + | Linda Roman | ECON | Unknown | | + + + + + Care Team Providers + +------+ + | Care Guitar Teacher Name | Role | Phone | + +------+ + | Alyssa Joseph | PCP | | + +------+ + Reason for Visit +--------+--------+ + | Reason | Onset | Comments | | | Date | | +--------+--------+ + | Other | 12/06/ | monitering done at clinic | | | 2019 | | +--------+--------+ + Encounter Details +--------+ + + + + | Date | Type | Department | Care Team | Description | +--------+ + + + + | 12/06/ | Telephone | [facility] | No, Physician p | Other (monitering | | 2019 | | [facility] | | done at clinic ) | | | | [address] | | | | | | [address] [place] | | | | | | [address] | | | | | | [phone] | | | +--------+ + + + [...] Telephone Encounter - Emi Batista RN - 12/07/2019 12:00 PM PDTSpoke to [place] and [facility] and she states patient's last INR was 1.8 on 2019 and at that time her warfarin wa s increased. Patient has another INR this week. elephone Encounter - Sirena De Los Santos - 12/07/2019 11:25 AM PDT [facility] [phone] She wanted to let nurse know that they are monitering pt r and r at the clinic. Electronic ally signed by Sirena De Los Santos at 12/07/2019 11:29 AM PDTdocumented in this encounter Plan of [...] | | | | | [place] [address] | | | | | | [phone] | | | | | | | | +--------+---------+ + + + documented as of this encounter Visit Diagnoses Not on filedocumented in this encounter"
--- OUTSIDE RECORDS SUMMARY | ~2020-01-23 | XMS | Encounter Summary ---
Demographics + + + | Address | [address] | | | [place] [address] | + + + | Home Phone | | + + + | Preferred Language | Unknown | + + + | Marital Status | | + + + | Church Affiliation | Unknown | + + + | Race | Unknown | + + + | Ethnic Group | Unknown | + + + Author + + + | Author | [facility] | | | and [place] | + + + | Organization | [facility] | | | and [...] [place], | | | | | [place] [address] | | + + + + + | Linda Roman | ECON | Unknown | | + + + + + Care Team Providers + +------+ + | Care Post Office Clerk Name | Role | Phone | + [...] + | 11/24/ | Home Care | PROV Augustine Salinasan P, PT | PT SECONDARY EVAL | | 2020 | Visit | [place] [address] | [address] [place] | | | | | [place] [address] | | | | | [address] | [phone] | | | | | [phone] | | | +--------+ + + + [...] + + + | Blood Pressure | 150/80 | 11/25/2019 1:00 PM | | | | | PDT | | + + + + + | Pulse | 68 | 11/25/2019 1:00 PM | | | | | PDT | | + + + + + | Temperature | 36.6 C (97.8 F) | 11/25/2019 1:00 PM | | | | | PDT | | + + + + + | Respiratory Rate | - | - | | + + + + + | Oxygen Saturation | 95% | 11/25/2019 1:00 PM | | | | | PDT [...] | | | | | [place] [address] | | | | | | [phone] | | | | | | | | +--------+---------+ + + + documented as of this encounter Visit Diagnoses Not on filedocumented in this encounter"
--- OUTSIDE RECORDS SUMMARY | ~2020-01-23 | XMS | Encounter Summary ---
Demographics + + + | Address | [address] | | | [place] [address] | + + + | Home Phone | | + + + | Preferred Language | Unknown | + + + | Marital Status | | + + + | Yazidi Affiliation | Unknown | + + + | Race | Unknown | + + + | Ethnic Group | Unknown | + + + Author + + + | Author | [facility] | | | and [place] | + + + | Organization | [facility] | | | [...] [place], | | | | | [place] [address] | | + + + + + | Linda Roman | ECON | Unknown | | + + + + + Care Team Providers + +------+ + | Care Picking Belt Operator Name | Role | Phone | [...] | +--------+ + + + + | 12/01/ | Home Care | [facility] [place] | Diane Marshall, | SN REPEAT VISIT | | 2020 | Visit | [place] [address] | RN | | | | | [address] [place] [place] | | | | | | [address] | | | | | | [phone] | | | +--------+ + + + [...] + + + | Blood Pressure | 130/78 | 2019 10:45 AM | | | | | PDT | | + + + + + | Pulse | 78 | 2019 10:45 AM | | | | | PDT | | + + + + + | Temperature | 36.2 C (97.1 F) | 2019 10:45 AM | | | | | PDT | | + + + + + | Respiratory Rate | 16 | 2019 10:45 AM | | | | | PDT | | + + + + + | Oxygen Saturation | 96% | 2019 10:45 AM | | | | | PDT [...] this encounter Miscellaneous Notes Home Health - Diane Marshall RN - 2019 10:45 AM PDTPt with recent hospitalization for septic shock due to Liver Shock Pt lives at home and her daughter lives with her. Pt has history of diabetes, CAD Pt is feeling better, and denies pain. She it taking her meds as instructed, Pt is not c hecking her CBG at all despite instruction and encouragement to do so. RN encouraged her aga in today. Pt then informs RN that she is going to see her MD at [facility] today at 1:30. Rn finished visit and left. Pt states she is doing fine and does not need a nurse, but RN i nstructed that I will come once more to follow up on MD appt, diabetes and medications. Pt agreed. documented in this encounter Plan of Treatment +--------+---------+ + + + | Date | Type | Specialty | Care Team | Description | +--------+---------+ + + + | 01/26/ | Office | Sleep Medicine | Amy Jiang | | | 2019 | Visit | | LATRE[address] | | | | | [address] | | | | | | [place] [address] | | | | | | [phone] | | | | | | | | +--------+---------+ + + + documented as of this encounter Visit Diagnoses Not on filedocumented in this encounter Home Health Visit - Care Plan + + | Visit Type - SN - REPEAT VISIT | | Discipline - Snf | + + + + +--------+--------+ + [...] | | scheduled/d | n | | Snf | | | | ocumented | scheduled/d | | | | | | interventio | ocumented | | | | | | n | in this | | | | | | | visit | + + +--------+--------+ + + | HH SHARED PAIN | Pain | | | 1 goal | 1 goal | | Disciplines: | | 11/24/ | Active | linked to | interventio | | Snf | | 020 | | scheduled/d | [...] | | scheduled/d | ns | | Snf | | | | ocumented | scheduled/d [...] | | scheduled/d | ns | | Snf | | | | ocumented | scheduled/d [...] +--------+--------+ + | Diabetic Foot | Problem: SHARED | | | | | Assessment | DIABETIC FOOT | Comple | | | | Description: | CAREGoal: SN | jayden | | | | [...] + | Assess for urinary | Problem: HH SN | | | Assessed urinary | | status and/or | Urinary | Comple | | status. See clinical | | infection | EliminationGoal: | jayden | | assessment in today's [...]
--- OUTSIDE RECORDS SUMMARY | ~2020-01-23 | XMS | Encounter Summary ---
Demographics + + + | Address | [address] | | | [place] [address] | + + + | Home Phone | | + + + | Preferred Language | Unknown | + + + | Marital Status | | + + + | Muslim Affiliation | Unknown | + + + | Race | Unknown | + + + | Ethnic Group | Unknown | + + + Author + + + | Author | [facility] | | | and [place] | + + + | Organization | [facility] | | [...] [place], | | | | | [place] [address] | | + + + + + | Linda Roman | ECON | Unknown | | + + + + + Care Team Providers + +------+ + | Care Certified Scrub Tech Name | Role | Phone | [...] | +--------+ + + + + | 11/29/ | Home Care | PROV RUDY [place] | Sunitha Duval, | CASE COMMUNICATION | | 2020 | Visit | [place] [address] | RN | | | | | [address] [place] [place] | | | | | | [address] | | | | | | [phone] | | | +--------+ + + + [...] documented as of this encounter Progress Notes Sunitha Duval RN - 11/30/2019 1:19 PM PDTTC from [place] [facility] [place] office, states they will be putting in a referral to sleep specialist r/t order for nocturnal study. documented in this encounter Plan of Treatment [...] | | | | | [place] [address] | | | | | | [phone] | | | | | | | | +--------+---------+ + + + documented as of this encounter Visit Diagnoses Not on filedocumented in this encounter"
--- OUTSIDE RECORDS SUMMARY | ~2020-01-23 | XMS | Encounter Summary ---
Demographics + + + | Address | [address] | | | [place] [address] | + + + | Home Phone [...] + | Mimi Bauman | ECON | [place], | | | | | [place] [address] | | + + + + + | Linda Roman | ECON | Unknown | | + + + + + Care Team Providers + +------+ + | Care Pain Coordinator Name | Role | Phone | + +------+ + PCP | Unavailable | + +------+ + Encounter Details +--------+ + + + + | Date | Type | Department | Care Team | Description | +--------+ + + + + | 02/04/ | Hospital | [facility] | Lena Kern | | | 2011 | Encounter | [facility] | MD [address] | | | | | LABORATORY [address] | [place] [address] | | | | [address] [place] | [place] [address] | | | | | [address] | [phone] | | | | | [phone] | | | +--------+ + + + [...] + + documented as of this encounter Procedure Notes Damien Rodriguez MD - 04/21/2013 6:55 PM PSTHeart Rate 76 P-R Interval 164 QRSD Interval 92 QT Interval 416 QTC Interval 468 P [place] 40 QRS [place] -51 T Wave [place] 60 EKG Severity - ABNORMAL ECG - SINUS RHYTHM LEFT ANTERIOR FASCICULAR BLOCK LVH WITH SECONDARY REPOLARIZATION ABNORMALITY <Signature Filed in OV> 02/05/12 1436 Damien Rodriguez MD EMELY PEGUERO ADM:02/05/12 [id number] REG CLI ELECTROCARDIOGRAM REPORT [id number] [facility] Damien Rodriguez MD E-Sign: [facility] THIS REPORT IS CONFIDENTIAL AND NOT TO BE RELEASED WITHOUT PROPER AUTHORIZATION.Electronica lly signed by Damien Rodriguez MD at 04/21/2013 8:19 PM PSTdocumented in this encounter Plan of [...] | | | | | | [place] [address] | | | | | | [phone] | | | | | | | [...] + + + | Exam Performed Location: [facility] [place] CHEST | MISCELANIOUS | | TWO VIEWS CLINICAL INFORMATION: Pre-operative for vaginal laser | LAB | | procedure. COMPARISON: None. FINDINGS: The heart size and | | | pulmonary vasculature are within normal limits. No focal | | | consolidation. No pleural effusion or pneumothorax. Visualized | | | bones are unremarkable. IMPRESSION: Negative chest radiographs. | | | S: SQ ([id number]) Signed by: GARCIA HEART MD | | + + + + + | Procedure Note | + + | Pineda Gomez Conversion - 04/09/2013 7:17 AM PDT Exam Performed Location: [facility] | | at [facility] TWO VIEWSCLINICAL INFORMATION:Pre-operative for vaginal laser | | procedure.COMPARISON:None.FINDINGS:The heart size and pulmonary vasculature are within | | normal limits.No focal consolidation. No pleural effusion or pneumothorax.Visualized | | bones are unremarkable.IMPRESSION:Negative chest radiographs.S: SQ ([id number]) Signed by: | | GARCIA HEART MD | | | |COMPARISON: | |None. | | | |FINDINGS: | |The heart size and pulmonary vasculature are within normal limits. | |No focal consolidation. No pleural effusion or pneumothorax. | |Visualized bones are unremarkable. | | | |IMPRESSION: | |Negative chest radiographs. | | | | | |S: SQ ([id number]) Signed by: GARCIA HEART MD | + + + +---------+ + + | Performing | Address | City/State/Zipcode | Phone Number | | Organization | | | | + +---------+ + + | MISCELLANEOUS LAB | | | [phone] | + +---------+ + + | MISCELANIOUS LAB | | | [phone] | + +---------+ + + Basic Metabolic [...] + + | Glucose | 105 (H)Comment: [place] | 65 - 99 mg/dL | [facility] | | | | Diabetes Association | [...] + + | [facility] | [address] | [place] [address] | | | [facility] | | | | | LABORATORY | | | | + + + + + | [facility] | | | | | [facility] | | | | | LABORATORY | | | | + + + + + CBC with Differential (02/05/2012 2:20 PM PDT) + + + + + + | Component | Value | Ref Range | Performed | Pathologist | | | | | At | Signature | + + + + + + | White Blood | 7.9 | 3.8 - 11.0 K/uL | [facility] | | | Cells | | [facility] | [facility] | | | [facility] | | | | [facility] | | | | | | LABORATORY | | + + + + + + | Red Blood | 4.56 | 3.70 - 5.10 | [...] + + | [facility] | [address] | [place] [address] | | | [facility] | | | | | LABORATORY | | | | + + + + + | [facility] | | | | | [facility] | | | | | LABORATORY | | | | + + + + + documented in this encounter Visit Diagnoses Not on filedocumented in this encounter"
--- OUTSIDE RECORDS SUMMARY | ~2020-01-23 | XMS | Encounter Summary ---
Demographics + + + | Address | [address] | | | [place] [address] | + + + | Home Phone | | + + + | Preferred Language | Unknown | + + + | Marital Status | | + + + | Pentecostalism Affiliation | Unknown | + + + | Race | Unknown | + + + | Ethnic Group | Unknown | + + + Author + + + | Author | [facility] | | | and [place] | + + + | Organization | [facility] | | | [...] [place], | | | | | [place] [address] | | + + + + + | Linda Roman | ECON | Unknown | | + + + + + Care Team Providers + +------+ + | Care Band And Cuff Cutter Name | Role | Phone | + +------+ + | Eva An MD | PCP | | + +------+ + Reason for Visit + +--------+ + | Reason | Onset | Comments | | | Date | | + +--------+ + | Physician Call | 11/18/ | Admitter paged | | | 2019 | | + +--------+ + Encounter Details +--------+ + + + + | Date | Type | Department | Care Team | Description | +--------+ + + + + | 11/18/ | Telephone | [facility] | Damien Horner, | Physician Call | | 2019 | | [facility] | [address] | (Admitter paged) | | | | [address] | [address] [place], | | | | | [address] [place] | [place] [address] | | | | | [address] | [phone] | | | | | [phone] | | | +--------+ + + + [...] this encounter Miscellaneous Notes Telephone Encounter - Asuncion Jaime - 11/19/2019 3:13 PM PDTCallers Name:REBECA August Callers return number:[phone] Patients Location:[address] Time of the page:3:10 p.m. Who was paged: Dr. Horner, Swing Shift Admitter Callers Stated reason for Page:BP parameters, decreased HR documented in this encounter Plan of Treatment [...] | | | | | [place] [address] | | | | | | [phone] | | | | | | | | +--------+---------+ + + + documented as of this encounter Visit Diagnoses Not on filedocumented in this encounter"
--- OUTSIDE RECORDS SUMMARY | ~2020-01-23 | XMS | Encounter Summary ---
Demographics + + + | Address | [address] | | | [place] [address] | + + + | Home Phone | | + + + | Preferred Language | Unknown | + + + | Marital Status | | + + + | Caodaism Affiliation | Unknown | + + + | Race | Unknown | + + + | Ethnic Group | Unknown | + + + Author + + + | Author | [facility] | | | and [place] | + + + | Organization | [facility] | | | [...] [place], | | | | | [place] [address] | | + + + + + | Linda Roman | ECON | Unknown | | + + + + + Care Team Providers + +------+ + | Care Air And Water Tester Name | Role | Phone | + +------+ + | Alyssa Joseph | PCP | | + +------+ + Reason for Visit + +--------+ + | Reason | Onset | Comments | | | Date | | + +--------+ + | Appointment | 11/24/ | | | | 2020 | | + +--------+ + Encounter Details +--------+ + + + + | Date | Type | Department | Care Team | Description | +--------+ + + + + | 11/24/ | Telephone | [facility] | Mayur York, | Appointment | | 2019 | | [facility] [place] | MD [address] | | | | | [address] [facility], | [address] [place], | | | | | [address] [place] | [place] [address] | | | | | [address] | [phone] | | | | | [phone] | | | +--------+ + + + [...] this encounter Miscellaneous Notes Telephone Encounter - Nancy Gomez - 11/25/2019 9:47 AM PDTCalled to schedule per Dr. Kahn's note. Voicemail not set up, sent scheduling letter. From: Canelo Salazar MD Sent: 11/24/2019 9:12 PM PDT To: Emi Batista RN, * [facility] Team [facility] and Emi, Please get this patient a consult with Dr. York in about 6 weeks. The arrhythmia departm ent is mailing her an MCT monitor, so it would be nice if he could see her after that 30-day monitor is done. She likely will need a HAND DRAWER IN pacemaker. She will need a repeat echocardi ogram as well, and she is coming all the way from [place], [place], so it would be nice to set up with the echo the day she sees Dr. York before she sees him. Thanks, Canelo [place] MD, [facility] 9:4 8 AM PDTdocumented in this encounter Plan of [...] | | | | | [place] [address] | | | | | | [phone] | | | | | | | | +--------+---------+ + + + documented as of this encounter Visit Diagnoses Not on filedocumented in this encounter"
--- OUTSIDE RECORDS SUMMARY | ~2020-01-23 | XMS | Encounter Summary ---
Demographics + + + | Address | [address] | | | [place] [address] | + + + | Home Phone | | + + + | Preferred Language | Unknown | + + + | Marital Status | | + + + | Oriental Orthodox Affiliation | Unknown | + + + | Race | Unknown | + + + | Ethnic Group | Unknown | + + + Author + + + | Author | [facility] | | | and [place] | + + + | Organization | [facility] | | | [...] [place], | | | | | [place] [address] | | + + + + + | Linda Roman | ECON | Unknown | | + + + + + Care Team Providers + +------+ + | Care Caregivers Homecare Name | Role | Phone | + +------+ + | Alyssa Joseph | PCP | | + +------+ + Encounter Details +--------+ + + + + | Date | Type | Department | Care Team | Description | +--------+ + + + + | 01/06/ | Abstract | [facility] [place] [place] | [place] | | | 2019 | | [address] | [address] | | | | | [place], | [address] [place] | | | | | [place] [address] | [place] [address] | | | | | [phone] | [phone] | | | | | | | | +--------+ + + + [...] | | | | | [place] [address] | | | | | | [phone] | | | | | | | | +--------+---------+ + + + documented as of this encounter Procedures + +--------+ + + + | Procedure Name | Priori | Date/Time | Associated Diagnosis | Comments | | | ty | | | | + +--------+ + + + | EXTERNAL LAB: BUN | Routin | 2019 | | Results for this | | | e | | | procedure are in the | | | | | | results section. | + +--------+ + + + | EXTERNAL LAB: | Routin | 2019 | | Results for this | | GLUCOSE | e | | | procedure are in the | | | | | | results section. | + +--------+ + + + | EXTERNAL LAB: ALT | Routin | 2019 | | Results for this | | | e | | | procedure are in the | | | | | | results section. | + +--------+ + + + | EXTERNAL LAB: AST | Routin | 2019 | | Results for this | | | e | | | procedure are in the | | | | | | results section. | + +--------+ + + + | EXTERNAL LAB: | Routin | 2019 | | Results for this | | ALKALINE PHOSPHATASE | e | | | procedure are in the | | | | | | results section. | + +--------+ + + + | EXTERNAL LAB: | Routin | 2019 | | Results for this | | BILIRUBIN, TOTAL | e | | | procedure are in the | | | | | | results section. | + +--------+ + + + | EXTERNAL LAB: | Routin | 2019 | | Results for this | | ALBUMIN | e | | | procedure are in the | | | | | | results section. | + +--------+ + + + | EXTERNAL LAB: | Routin | 2019 | | Results for this | | PROTEIN, TOTAL | e | | | procedure are in the | | | | | | results section. | + +--------+ + + + | EXTERNAL LAB: | Routin | 2019 | | Results for this | | CALCIUM | e | | | procedure are in the | | | | | | results section. | + +--------+ + + + | EXTERNAL LAB: CARBON | Routin | 2019 | | Results for this | | DIOXIDE | e | | | procedure are in the | | | | | | results section. | + +--------+ + + + | EXTERNAL LAB: | Routin | 2019 | | Results for this | | CHLORIDE | e | | | procedure are in the | | | | | | results section. | + +--------+ + + + | EXTERNAL LAB: | Routin | 2019 | | Results for this | | POTASSIUM | e | | | procedure are in the | | | | | | results section. | + +--------+ + + + | EXTERNAL LAB: SODIUM | Routin | 2019 | | Results for this | | | e | | | procedure are in the | | | | | | results section. | + +--------+ + + + | EXTERNAL LAB: EGFR | Routin | 2019 | | Results for this | | | e | | | procedure are in the | | | | | | results section. | + +--------+ + + + | EXTERNAL LAB: | Routin | 2019 | | Results for this | | CREATININE | e | | | procedure are in the | | | | | | results section. | + +--------+ + + + documented in this encounter Results External Lab: BUN (2019) + +-------+ + + + | Component | Value | Ref Range | Performed | Pathologist | | | | | At | Signature | + +-------+ + + + | BUN, | 87 | | | | | External | | | | | + +-------+ + + + External Lab: Glucose (2019) + +-------+ + + + | Component | Value | Ref Range | Performed | Pathologist | | | | | At | Signature | + +-------+ + + + | Glucose, | 87 | | | | | External | | | | | + +-------+ + + + External Lab: ALT (2019) + +-------+ + + + | Component | Value | Ref Range | Performed | Pathologist | | | | | At | Signature | + +-------+ + + + | ALT, | 76 | | | | | External | | | | | + +-------+ + + + External Lab: AST (2019) + +-------+ + + + | Component | Value | Ref Range | Performed | Pathologist | | | | | At | Signature | + +-------+ + + + | AST, | 33 | | | | | External | | | | | + +-------+ + + + External Lab: Alkaline Phosphatase (2019) + +-------+ + + + | Component | Value | Ref Range | Performed | Pathologist | | | | | At | Signature | + +-------+ + + + | ALP, | 76 | | | | | External | | | | | + +-------+ + + + External Lab: Bilirubin, Total (2019) + +-------+ + + + | Component | Value | Ref Range | Performed | Pathologist | | | | | At | Signature | + +-------+ + + + | Bilirubin, | 1.1 | | | | | Total, | | | | | | External | | | | | + +-------+ + + + External Lab: Albumin (2019) + +-------+ + + + | Component | Value | Ref Range | Performed | Pathologist | | | | | At | Signature | + +-------+ + + + | Albumin, | 3.8 | | | | | External | | | | | + +-------+ + + + External Lab: Protein, Total (2019) + +-------+ + + + | Component | Value | Ref Range | Performed | Pathologist | | | | | At | Signature | + +-------+ + + + | Protein, | 6.2 | | | | | Total, | | | | | | External | | | | | + +-------+ + + + External Lab: Calcium (2019) + +-------+ + + + | Component | Value | Ref Range | Performed | Pathologist | | | | | At | Signature | + +-------+ + + + | Calcium, | 9.1 | | | | | External | | | | | + +-------+ + + + External Lab: Carbon Dioxide (2019) + +-------+ + + + | Component | Value | Ref Range | Performed | Pathologist | | | | | At | Signature | + +-------+ + + + | Carbon | 27 | | | | | Dioxide, | | | | | | External | | | | | + +-------+ + + + External Lab: Chloride (2019) + +-------+ + + + | Component | Value | Ref Range | Performed | Pathologist | | | | | At | Signature | + +-------+ + + + | Chloride, | 105 | | | | | External | | | | | + +-------+ + + + External Lab: Potassium (2019) + +-------+ + + + | Component | Value | Ref Range | Performed | Pathologist | | | | | At | Signature | + +-------+ + + + | Potassium, | 3.9 | | | | | External | | | | | + +-------+ + + + External Lab: Sodium (2019) + +-------+ + + + | Component | Value | Ref Range | Performed | Pathologist | | | | | At | Signature | + +-------+ + + + | Sodium, | 139 | | | | | External | | | | | + +-------+ + + + External Lab: eGFR (2019) + +-------+ + + + | Component | Value | Ref Range | Performed | Pathologist | | | | | At | Signature | + +-------+ + + + | eGFR, | >60 | | | | | External | | | | | + +-------+ + + + + + | Specimen | + + | Blood | + + External Lab: Creatinine (2019) + +-------+ + + + | Component | Value | Ref Range | Performed | Pathologist | | | | | At | Signature | + +-------+ + + + | Creatinine, | 0.60 | | | | | External | | | | | + +-------+ + + + + + | Specimen | + + | Blood | + + documented in this encounter Visit Diagnoses Not on filedocumented in this encounter"
--- OUTSIDE RECORDS SUMMARY | ~2020-01-23 | XMS | Clinical Summary ---
Demographics + + + | Address | [address] | | | [place] [address] | + + + | Home Phone | | + + + | Preferred Language | Unknown | + + + | Marital Status | | + + + | Tenriism Affiliation | Unknown | + + + | Race | Unknown | + + + | Ethnic Group | Unknown | + + + Author + + + | Author | [facility] | | | and [place] | + + + | Organization | [facility] | | [...] [place], | | | | | [place] [address] | | + + + + + | Linda Roman | ECON | Unknown | | + + + + + Care Team Providers + +------+ + | Care Halal Meat Packer Name | Role | Phone | [...] + + + + | Azithromycin | Diarrhea, Itching | | 02/25/20 | | | | | | 15 | | + + + + + + | Clavulanic Acid | Itching | | 02/25/20 | Unknown | | | | | 15 | | + + + + + + | Clindamycin | Itching, Rash | Low | 02/25/20 | | | | | [...] + + + +---------+------+------+-------+ | warfarin | Take 2.5 mg by mouth | | 0 | 06/0 | | Activ | | (COUMADIN) 1 mg | Every other day. | | | 11/03 | | e | | tablet | 2.5 mg every other | | | 15 | | | | | day alternating with | | | | | | | | 1 mg | | | | | | + [...] + + + +---------+------+------+-------+ | warfarin | Take 1 mg by mouth | | 0 | | | Activ | | (COUMADIN) 1 mg | Every other day. 1 | | | | | e | | tablet | mg every other day | | | | | | | | alternating with 2.5 | | | | | | | | mg | | | | | | + + + +---------+------+------+-------+ | acetaminophen | Take 650 mg by mouth | | 0 | | | Activ | | (TYLENOL) 325 mg | every 4 hours as | | | | | e | | tablet | needed for Pain. | | | | | | + + + +---------+------+------+-------+ | nitroglycerin | Place 0.4 mg under | | 0 | | | Activ | | (NITROSTAT) 0.4 mg | the tongue every 5 | | | | | e | | SL tablet | minutes as needed | | | | | | | | for Chest pain. | | | | | | + + + +---------+------+------+-------+ | montelukast | Take 10 mg by mouth | | 0 | | | Activ | | (SINGULAIR) 10 mg | nightly. | | | | | e | | tablet | | | | | | | + + + +---------+------+------+-------+ | | Take 1 tablet by | | 0 | | | Activ | | SITagliptin-metFORMI | mouth nightly. | | | | | e | | N HCl ER (JANUMET | | | | | | | | XR) 50-1000 MG TB24 | | | | | | | + + + +---------+------+------+-------+ | losartan (COZAAR) | Take 1 tablet by | 30 | 0 | 06/0 | | Activ | | 50 mg tablet | mouth Daily. | tablet | | 9/20 | | e | | | | | | 20 | | | + + + +---------+------+------+-------+ | furosemide (LASIX) | Take 1 tablet by | 30 | 0 | 06/0 | | Activ | | 20 mg tablet | mouth Daily. | tablet | | 9/20 | | e | | | | | | 20 | | | + + + +---------+------+------+-------+ | potassium chloride | Take 1 tablet by | 30 | 0 | 06/0 | | Activ | | (KLOR-CON) 10 mEq | mouth Daily. | tablet | | 9/20 | | e | | CR tablet | | | | 20 | | | + + + +---------+------+------+-------+ | metoprolol | Take 1 tablet (25 mg | 90 | 0 | 06/1 | | Activ | | succinate | total) by mouth | tablet | | 9/20 | | e | | (TOPROL-XL) 25 mg 24 | Daily | | | 20 | | | | hr tablet | | | | | | | + + + +---------+------+------+-------+ Active Problems + + + | Problem | Noted Date | + + + | SOB (shortness of breath) | 01/05/2020 | + + + + + | Overview: Echocardiogram September 2014 shows overall left | | ventricular systolic function is moderate-severely impaired with, | | an EF between 30 - 35 %. Restrictive LV diastolic filling | | pattern, consistent with elevated LA pressure and severe | | dysfunction (grade III). Akinesia of the mid-distal anterior | | wall, distal inferior wall and apex (LAD territory). Severe | | mitral regurgitation is present. There is moderate pulmonary | | hypertension. Echocardiogram November 2019 shows severe, global LV | | dysfunction with estimated EF 20%. Thickened mitral valve | | leaflets with moderate to severe central MR. Aortic sclerosis | | with trace AI. Moderate TR with moderate pulmonary hypertension | | with RVSP in the mid 50s. No pericardial effusion. Compared with | | a report from a previous study from 2014, EF is now lower. | + + + + + | No-show for appointment | 12/24/2019 | + + + | Septic shock | 11/19/2019 | + + + | Bacteremia due to Escherichia coli | 11/19/2019 | + + + | Bradycardia | 11/19/2019 | + + + + + | Last Assessment & Plan: Asymptomatic, no further pauses after | | sinus conversion with amiodarone. If the patient has recurrent | | rapid atrial fibrillation alternating with significant | | bradycardia, she may require pacemaker implantation. If pacemaker | | is required, would consider MECHANICAL ENGINEERING DIRECTOR | | | | P or MECHANICAL ENGINEERING DIRECTOR | | | | D. | + + + + + | Ischemic cardiomyopathy | 11/19/2019 | + + + + + | Last Assessment & Plan: Severely depressed EF of 20% and | | moderate to severe mitral regurgitation. Continue Toprol, and | | losartan.- outpatient consult with Dr. York post discharge to | | continue to assess for MECHANICAL ENGINEERING DIRECTOR-P or D | + + + + + | Atrial fibrillation with RVR | 11/19/2019 | + + + + + | Overview: Echocardiogram November 2019 shows there is severe left | | ventricular systolic dysfunction. The ejection fraction is | | visually estimated at 20-25%. The apical wall segments appear | | akinetic. All other wall segments appear moderate to severely | | hypokinetic. Doppler flow profile suggests a restrictive | | diastolic filling pattern, severe Grade 3 diastolic dysfunction. | | Normal right ventricular size and function. The left atrium is | | mildly dilated. Mildly enlarged right atrial size. There is | | severe mitral regurgitation. Severe tricuspid regurgitation. | | There is severe pulmonary hypertension, with an estimated peak | | pulmonary artery systolic pressure of 75 ,,Hg. There are several | | changes noted compared to the results of a YAQUELIN, done 09/26/14. | | 30 day cardiac telemetry November 2019 shows the patient had the | | monitor from 11/27/2019 until 12/26/2019. Asymptomatic baseline | | transmission showed sinus rhythm with heart rate 70 bpm. 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 A. fib rates were in the 110 | | | | 130 range around that time. On 12/06/2019, there was another | | episode of atrial fibrillation with heart rate 130 bpm, and again | | on 12/06. Least one strip showing atrial flutter occurred on | | 12/06 as well. No symptoms reported, so it appears that none of | | these events were symptomatic. Two runs of nonsustained VT | | lasting 6 beats were seen on 12/08.No further pauses were seen | | after the patient's metoprolol dose was decreased on 12/07. | | Last Assessment & Plan: In setting of sepsis. Now resolved, | | rate controlled. Avoid amiodarone given significant transaminates | | and 9 second conversion pauses, continue low-dose beta-mima. | | Would keep K > 4.0, Mag > 2.0.- Increase Toprol-XL to 50 mg | | daily- replete mag and potassium, 2g IV, and 40meq x1- continue | | monotherapy with coumadin and enoxaparin bridge - Outpatient MCT | | post discharge to look for more pauses/A. Fib and evaluate | | further sinus node dysfunction - Will discuss with Dr. York to | | follow up outpatient for to MECHANICAL ENGINEERING DIRECTOR pacer | + + + + + | Shock liver | 11/19/2019 | + + + + + | Last Assessment & Plan: Resolving. INR 1.2 today | + + + + + | Type 2 diabetes mellitus | 11/19/2019 | + + + | Prolonged Q-T interval on ECG | 11/19/2019 | + + + | Coronary artery disease involving elem coronary artery of | 11/19/2019 | | elem heart without angina pectoris | | + + + + + | Overview: Left heart Cath September 2014 shows non-ST elevation | | myocardial infarction with severe systolic dysfunction with | | ejection fraction 30% to 35%, and severe mitral valve | | regurgitation. Two-vessel disease including 100% occluded ostial | | left anterior descending artery and mid-left circumflex artery. | | Intermediate disease in the right coronary artery with negative | | fractional flow reserve of 0.87. 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 Last Assessment & Plan: Known CAD with | | ischemic cardiomyopathy. Cath from 2014 shows 100% occlusion of | | LAD, negative iFR of RCA and PCI with Promus SUSAN to left | | circumflex artery.- monotherapy with coumadin, would avoid | | aspirin. Cont BB, ACEi | + + + + + | Metabolic acidosis | 11/19/2019 | + + + | Mitral regurgitation | 02/24/2015 | + + + + + | Overview: Transesophageal Echocardiogram September 2014 shows | | overall left ventricular systolic function is severely impaired | | with, an EF between 25 - 30 %. The left atrium is markedly | | dilated. Severe mitral regurgitation is present. The right | | ventricular systolic pressure, as measured by Doppler, is | | 44.12mmHg. Last Assessment & Plan: Severe mitral | | regurgitation from echo 2015, slightly worsened on repeat echo. | | Continue medical optimization of LV dysfunction. | + + + + + | Coronary artery disease involving elem coronary artery without | 02/24/2015 | | [...] recommend a viability study | + + Resolved Problems + + + + | Problem | Noted | Resolved | | | Date | Date | + + + + | Acute kidney injury (ROSALVA) with acute tubular necrosis (ATN) | 11/19/19 | | | | 20 | 0 | + + + + + + | Last Assessment & Plan: Creatinine back to normal now.ROSALVA was | | likely due to transient hypotension with ATN. Not currently | | volume overloaded. | + + + + + + | Hyperkalemia | 11/19/19 | | | | 20 | 0 | + + + + Encounters +--------+ + + + + | Date | Type | Specialty | Care Team | Description | +--------+ + + + + | 01/06/ | Abstract | Cardiology | Richmond Jaquez | | | 2019 | | | MD Grupo | | +--------+ + + + + | 01/03/ | Telephone | Cardiology | Deepti Salazar (MCT | | 2019 | | Deepti Arce MD | results) | +--------+ + + + + | 12/23/ | Office | Sleep Medicine | Jiang, Amy | No-show for | 2019 | Visit | | [place] | appointment | +--------+ + + + + | 12/15/ | Home Care | Home Health Services | Renetta Lopez, MARLO | CASE COMMUNICATION | | 2019 | Visit | | | | +--------+ + + + + | 12/07/ | Home Care | Home Health Services | Diane Marshall, | SN DISCHARGE (OASIS) | | 2019 | Visit | | RN | | +--------+ + + + + | 12/07/ | Telephone | Cardiology | Marie, | Medication Refill | 2019 | | | Canelo Arce MD | Assistance | | | | | | (metoprolol | | | | | | succinate | | | | | | (TOPROL-XL) 25 mg 24 | | | | | | hr tablet) | +--------+ + + + + | 12/06/ | Telephone | Cardiology | No, Physician | Other (monitering | | 2019 | | | | done at [facility] ) | +--------+ + + + + | 12/03/ | Home Care | Home Health Services | Dru Conn, | PT REPEAT VISIT | | 2019 | Visit | | NAIL EXPERT | | +--------+ + + + + | 12/03/ | Orders Only | Cardiology | Cassie Crowley, | | | 2019 | | | RN | | +--------+ + + + + | 12/03/ | Telephone | Cardiology | Hollenbaugh, | Follow-up | | 2019 | | | Canelo Arce MD | | +--------+ + + + + | 12/03/ | Home Care | Home Health Services | Renetta Lopez, PT | CASE COMMUNICATION | 2019 | Visit | | | | +--------+ + + + + | 12/03/ | Documentati | Cardiology | Alexey Dan, | | | 2019 | on | | Technologist | | +--------+ + + + + | 12/01/ | Home Care | Home Health Services | Diane Marshall, | SN REPEAT VISIT | | 2019 | Visit | | RN | | +--------+ + + + + | 11/30/ | Home Care | Home Health Services | Dru Conn, | PT REPEAT VISIT | | 2019 | Visit | | NAIL EXPERT | | +--------+ + + + + | 11/30/ | Home Care | Home Health Services | Renetta Lopez, PT | CASE COMMUNICATION | | 2019 | Visit | | | | +--------+ + + + + | 11/29/ | Home Care | Home Health Services | Sunitha Duval, | CASE COMMUNICATION | | 2019 | Visit | | RN | | +--------+ + + + + | 11/25/ | Home Care | Home Health Services | Pritesh, | RT REPEAT VISIT | | 2019 | Visit | | Rosalva King RRT | | +--------+ + + + + | 06/11/ | Home Care | Home Health Services | Hair Noe | OT SECONDARY EVAL | | 2019 | Visit | | M, OT | | +--------+ + + + + | 11/25/ | Telephone | Hospitalist | Carolyn Crockett MD | Hospital Follow-up | | 2019 | | | | | +--------+ + + + + | 11/24/ | Home Care | Home Health Services | Tj Nolasco, PT | PT SECONDARY EVAL | | 2019 | Visit | | | | +--------+ + + + + | 11/24/ | Home Care | Home Health Services | Diane Marshall, | SN SOC (OASIS) | | 2019 | Visit | | RN | | +--------+ + + + + | 11/24/ | Telephone | Hospitalist | Carolyn Crockett MD | Hospital Follow-up | | 2019 | | | | | +--------+ + + + + | 11/24/ | Telephone | Cardiology | Mayur York, | Appointment | | 2019 | | | | | +--------+ + + + + | 11/24/ | Orders Only | Cardiology | Marie, | Atrial fibrillation | | 2019 | | | Canelo Arce MD | with RVR ([facility]) | | | | | | (Primary Dx) | +--------+ + + + + | 11/22/ | Telephone | Home Health Services | Nancy Deluca, | Referral (Follow up) | | 2019 | | | RN | | +--------+ + + + + | 11/22/ | Orders Only | Cardiology | Marie, | Atrial fibrillation | | 2019 | | | Canelo Arce MD | with RVR (HCC) | | | | | | (Primary Dx) | +--------+ + + + + | 11/18/ | Hospital | | Madison Stark MD | Mitral valve | | 2019 - | Encounter | | Morales Lloyd | insufficiency, | | | | | MD Keira Quezada, | unspecified etiology | | 11/23/ | | | MD Carolyn | (Primary Dx); Acute | | 2019 | | | | kidney injury (ROSALVA) | | | | | | with acute tubular | | | | | | necrosis (ATN) | | | | | | (HCC); Atrial | | | | | | fibrillation with | | | | | | RVR (HCC); | | | | | | Bacteremia due to | | | | | | Escherichia coli; | | | | | | Bradycardia; | | | | | | Coronary artery | | | | | | disease involving | | | | | | elem coronary | | | | | | artery of elem | | | | | | heart [...] | | | | | Septic shock (HCC); | | | | | | Shock [...] (HCC) | +--------+ + + + + | 11/18/ | Telephone | Cardiology | Damien Horner, | Physician Call | | 2020 | | | MD | (Admitter paged) | +--------+ + + + + from Last 3 Months Family History + + +------+ + | [...] + + + | Blood Pressure | 120/74 | 12/08/2019 10:15 AM | | | | | PDT | | + + + + + | Pulse | 78 | 12/08/2019 10:15 AM | | | | | PDT | | + + + + + | Temperature | 36.9 C (98.4 F) | 12/08/2019 10:15 AM | | | | | PDT | | + + + + + | Respiratory Rate | 16 | 12/08/2019 10:15 AM | | | | | PDT | | + + + + + | Oxygen Saturation | 97% | 12/08/2019 10:15 AM | | | | | PDT [...] + + + + Plan of Treatment +--------+---------+ + + + | Date | Type | Specialty | Care Team | Description | +--------+---------+ + + + | 01/26/ | Office | Sleep Medicine | Amy Jiang | | | 2019 | Visit | | LAT[place]LL Tracy [address] | | | | | [address] | | | | | | [place] [address] | | | | | | [phone] | | | | | | | | +--------+---------+ + + + + + + + + | Health Maintenance | Due Date | Last | Comments | | | | Done | | + + + + + | Medication | | | | | Management | 8 | | | + + + + + | Diabetic Eye Exam | | | | | | 6 | | | + + + + + | Diabetic Foot Exam | | | | | | 6 | | | + + + + + | Vaccine: | | | | | Pneumococcal 65+ (1 | 3 | | | | of 1 - PPSV23) | | | | + + + + + | Vaccine: Zoster (2 | | 12/12/19 | | | of 3) | 2 | 12 | | + + + + + | Hemoglobin A1c | | 09/26/19 | | | Screening | 5 | 15 | | + + + + + | Med Mgmt: HBA1C | | 09/26/19 | | | | 5 | 15 | | + + + + + | Adult Annual | | | | | Wellness Visit | 0 | | | + + + + + | Statin Therapy | | | | | (optimal intensity) | 0 | | | + + + + + | Med Mgmt: INR | | 11/24/19 | | | | 0 | 20, | | | | | 11/23/19 | | | | | 20, | | | | | 11/22/19 | | | | | 20, | | | | | Addition | | | | | al | | | | | history | | | | | exists | | + + + + + | Vaccine: Influenza | | 03/19/20 | | | (#1) | 0 | 19, | | | | | 04/19/20 | | | | | 17, | | | | | 04/06/20 | | | | | 16, | | | | | Addition | | | | | al | | | | | history | | | | | exists | | + + + + + | Med Mgmt: Cr | | 12/02/19 | | | | 1 | 20, | | | | | 11/24/19 | | | | | 20, | | | | | 11/22/19 | | | | | 20, | | | | | Addition | | | | | al | | | | | history | | | | | exists | | + + + + + | Med Mgmt: K | | 12/02/19 | | | | 1 | 20, | | | | | 11/24/19 | | | | | 20, | | | | | 11/22/19 | | | | | 20, | | | | | Addition | | | | | al | | | | | history | | | | | exists | | + + + + + | Med Mgmt: Na | | 12/02/19 | | | | 1 | 20, | | | | | 11/24/19 | | | | | 20, | | | | | 11/22/19 | | | | | 20, | | | | | Addition | | | | | al | | | | | history | | | | | exists | | + + + + + | Med Mgmt: eGFR | | 12/02/19 | | | | 1 | 20, | | | | | 11/24/19 | | | | | 20, | | | | | 11/22/19 | | | | | 20, | | | | | Addition | | | | | al | | | | | history | | | | | exists | | + + + + + | Vaccine: | | 12/12/19 | | | Dtap/Tdap/Td (2 - | 2 | 12, | | | Td) | | 12/12/19 | | | | | 05, | | | | | 03/22/19 | | | | | 95 | | + + + + + Procedures + +--------+ + + + | Procedure Name | Priori | Date/Time | Associated Diagnosis | Comments | | | ty | | | | + +--------+ + + + | CV MOBILE CARDIAC | Routin | 12/30/2019 | Atrial | Results for this | | TELEMETRY (MCT) | e | 2:12 PM | fibrillation with | procedure are in the | | | | PDT | RVR ([facility]) | results section. | + +--------+ + + + | LABS - EXTERNAL SCAN | | 2019 | | Results for this [...] | LABS - EXTERNAL SCAN | | 2019 | | Results for this [...] | + +--------+ + + + | MOBILE CARDIAC | Routin | 11/24/2019 | Atrial | Results for this | | TELEMETRY HOOKUP | e | 9:50 AM | fibrillation with | procedure are in the | | | | PDT | RVR ([facility]) | results section. | + +--------+ + [...] section. | + +--------+ + + + from Last 3 Months Results CV Mobile Cardiac Telemetry (12/30/2019 2:12 [...] rate 70 bpm.2. 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 + + + | Narrative | Performed At | + + + | Ordered by an | | | unspecified provider. | | + + + POC Glucose (11/24/2019 12:00 PM PDT)Only the most recent of 21 results within the time per is included. + + + + --+ + | Component | Value | Ref Range | Performed | Pathologist | | | | | At | Signature | + + + + --+ + | Glucose, | 98Comment: Performed by | 65 - 99 mg/dL | [facility] | | | POC | [facility] [address], | | [place]CR[address] | | | | [place] [address] | | HEART | | | |Performed by [facility] [address], [place], [place] | | MEDICAL | | | | [...] + + | [facility] | [address] | [place] [address] | | | [facility] | | | | | LABORATORY CERNER | | | | + + + + + Mobile Cardiac Telemetry Sherri (11/24/2019 [...] | + +---------+ + + Protime INR (11/24/2019 3:20 AM PDT)Only the most recent of 5 results within the time jr od is included. + + + + + + | [...] | | | | | | by [facility] [address], | | | | | | [place] [address] | | | | + + + + + + + + | Specimen | + + | Blood specimen | | (specimen) | + + + + + + + | Performing | Address | City/State/Zipcode | Phone Number | | Organization | | | | + + + + + | [facility] | [address] | [place] [address] | | | [facility] | | | | | LABORATORY CERNER | | | | + + + + + CBC no Differential (11/24/2019 3:20 AM PDT)Only the most recent of 4 results within the period is included. + + + +------- ------+ + | [...] | | | | | | LABORA [facility] | | | | | | CERNER [...] [facility] | | | | by [facility] [address], | | [place]CR[place] | | | | [place] [address] | | HEART | | | |Performed by [facility] [address], [place] [address] | | MEDICA L | | | [...] [address]. | [place] | | | [facility] | | | | | LABORATORY MIRELA | | | | + + + + + Magnesium (11/24/2019 3:20 AM PDT)Only the most recent of 4 results within the time period is included. + + + +--------- ----+ + | Component | Value | Ref Range | Performe d | Pathologist | | | | | At | Signature | + + + +--------- ----+ + | Magnesium | 2.0Comment: Performed | 1.7 - 2.4 mg/dL | [facility] | | | | by [facility] [address], | | [place]CR[place] | | | | [place] | | HEART | | | |Performed by [facility] [address], [place] [address] | | MEDICAL | | | | [...] + + | [facility] | [address] | [place] [address] | | | [facility] | | | | | LABORATORY MIRELA | | | | + + + + + Comprehensive Metabolic Panel (11/24/2019 3:20 AM PDT)Only the most recent of 5 results wi thin the time period is included. + + + + + + | [...] | | LABORATORY | | | | [facility] [address], | | [place] | | | | [place] [address] | | | | + + + + + + + + | Specimen | + + | Blood specimen | | (specimen) | + + + + + + + | Performing | Address | City/State/Zipcode | Phone Number | | Organization | | | | + + + + + | [facility] | [address] | [place] [address] | | | [facility] | | | | | PACO DIETZ [...] | | + +---------+ + + Phosphorus (11/21/2019 4:25 AM PDT) + + + +-------- -----+ + | Component | Value | Ref Range | Perform ed | Pathologist | | | | | At | Signature | + + + +-------- -----+ + | Phosphorus | 2.7Comment: Performed | 2.6 - 4.4 mg/dL | [facility] | | | | by [place] [address], | | [place]CR[place] | | | | [place] [address] | | HEART | | | |Performed by [facility] [address], [place] [address] | | MEDICAL | | | | [...] + + | [facility] | [address] | [place] [address] | | | [facility] | | | | | LABORATORY [...] | | | Immature | Performed by [facility] [address] | K/uL | [place]CRED | | | Granulocyte | [address] [place] | | HEART | | | s | [phone] | | MEDICAL | | | | [...] + | [facility] | [address] | [place] [address] | | | HEART [facility] | | | | | PACO DIETZ | | | | + + + + + Lactic Acid (11/20/2019 4:13 AM PDT)Only the most recent of 4 results within the time jr od is included. + + + + + + | Component | Value | Ref Range | Performed | Pathologist | | | | | At | Signature | + + + + + + | Lactate, | 1.7Comment: Performed | 0.5 - 2.2 | [facility] | | | Venous | by [facility] [address], | mmol/L | [place]CRED | | | | [place] [address] | | HEART | | | |Performed by [facility] [address], [place] [address] | | MEDICAL | | | | [...] + + | [facility] | [address] | [place] [address] | | | [facility] | | | | | LABORATORY CERSONG | | | | + + + [...] | | | | | | The CDC recommends | | | | | | that a positive HCV | | | | | | antibody result be | | | | | | followed up with a HCV | | | | | | Nucleic Acid | | | | | | Amplification test | | | | | | ([id number]).Performed At: | | | | | | [address] [facility] [address] [address] | | | | | | [address] | | | | | | [place], [place] | | | | | | [phone] | | | | | | L Ph:[phone] | | | | + + + + + + + + | Specimen | + + | Blood specimen | | (specimen) | + + + + + + + | Performing | Address | City/State/Zipcode | Phone Number | | Organization | | | | + + + + + | [facility] | [address] | [place] [address] | | | [facility] | | | | | LABORATORY [place] [...] [facility] | | | Nitrogen, | by [facility] [address], | mg/dL | [place] | | | Urine | [place] [address] | | HEART | | | |Performed by [facility] [address], [place] [address] | | MEDICAL | | | | [...] + + | [facility] | [address] | [place], [place] | | | [facility] | | | | | LABORATORY [...] | 0 - 259 mmol/L | RAFIA E | | | | [facility] [address], | | [facility] | | | | [place] | | HEART | | | |Performed by [facility] [address], [place] | | MEDICAL | | | [...] + | CHUCHO CABRERA | [address] [facility] [place]. | [place] [address] | | | [facility] | | | | | PACO DIETZ [...] PROVIDE NCE | | | Urine | [facility] [address], | | [facility]CR[place] | | | | [place] [address] | | HEART | | | |Performed by [facility] [address], [place] [address] | | MEDICAL | | | | [...] + + | CHUCHO CABRERA | [address] | [place] [address] | | | [facility] | | | | | LABORATORY CERNER | | | | + + + + + Urinalysis With Microscopic (11/19/2019 1:05 PM PDT)Only the most recent of 2 results with in the time period is included. + + + + + + | [...] - 1.030 | [facility] | | | [place], | | | [facility] | | | [...] | | | Cell | Performed by [facility] [address] | | [facility]CRED | | | [place], | [address] [place] | | HEART | | | Urine | [id number] | | MEDICAL | | | | [...] + + | CHUCHO CABRERA | [address] | [place] [address] | | | [facility] | | | | | PACO DIETZ | | | | + + + + + DIC Bob (11/19/2019 10:53 AM PDT) + + + + + + | Component | Value | Ref Range | Performed | Pathologist | | | | | At | Signature | + + + + + + | D-DIMER, | 3.26 (H)Comment: This | 0.00 - 0.49 | [facility] | | | QUANTITATIV | quantitative D Dimer | ug/mL FEU | [facility] | | | E | assay has [...] | | | | | seconds.Performed by [facility] | | | | | | [address], | | | | | | [place] [address] | | | | + + + + + + + + | Specimen | + + | Blood specimen | | (specimen) | + + + + + + + | Performing | Address | City/State/Zipcode | Phone Number | | Organization | | | | + + + + + | [facility] | [address] | [place] [address] | | | [facility] | | | | | LABORATORY [...] 0.538 (AA)Comment: | 0.000 - 0.069 | [facility] | | | | Critical Troponin | ng/mL | [facility] | | | | called [...] by | | | | | | [facility] [address], | | | | | | [place] [address] | | | | + + + + + + + + | Specimen | + + | Blood specimen | | (specimen) | + + + + + + + | Performing | Address | City/State/Zipcode | Phone Number | | Organization | | | | + + + + + | [facility] | [address] | [place] [address] | | | [facility] | | | | | LABORATORY [...] | TRACEMASTER | | Duration:184 msP Horizontal [place]:12 degP Front [place]:32 degQ Onset:512 | | | msQRSD Interval:136 msQT Interval:596 msQTcB:571 msQTcF:579 msQRS | | | Horizontal [place]:260 degQRS [place]:-43 degI-40 Horizontal [place]:-35 | | | degI-40 Front [place]:31 degT-40 Horizontal [place]:236 degT-40 Front | | | [place]:-59 degT Horizontal [place]:153 degT Wave [place]:261 degS-T Horizontal | | | [place]:122 degS-T Front [place]:182 degSeverity:- ABNORMAL ECG | | | -INTERP:SINUS RHYTHMINTERP:LEFT BUNDLE BRANCH BLOCKElectronically | | | signed by: , 11-19-2019 11:08:42 | | |QTcB:571 ms | | |QTcF:579 ms | | |QRS Horizontal [place]:260 deg | | |QRS [place]:-43 deg | | |I-40 Horizontal [place]:-35 deg | | |I-40 Front [place]:31 deg | | |T-40 Horizontal [place]:236 deg | | |T-40 Front [place]:-59 deg | | |T Horizontal [place]:153 deg | | |T Wave [place]:261 deg | | |S-T Horizontal [place]:122 deg | | |S-T Front [place]:182 deg | | |Severity:- ABNORMAL ECG - | | |INTERP:SINUS RHYTHM | | |INTERP:LEFT BUNDLE BRANCH BLOCK | | |Electronically signed by: , 11-19-2019 11:08:42 | | + + + + + + + + | Performing | Address | City/State/Zipcode | Phone Number | | Organization | | | | + + + + + | [facility] | [address] [place] | [place] [address] | [phone] | + + + + + ECG - EXTERNAL SCAN [...] unspecified provider. | | + + + from Last 3 Months Insurance + +--------+ +--------+ +---------+--------+ | Payer | Benefi | Subscriber | Effect | Phone | Address | Type | | | t Plan | ID | justina | | | | | | / | | Dates | | | | | | Group | | | | | | + +--------+ +--------+ +---------+--------+ | MEDICARE | MEDICA | [id number] | 02/16/20 | [phone] | | Medica | | | RE | | 04-Pre | 5 | | re | | | PART A | | sent | | | | | | AND B | | | | | | + +--------+ +--------+ +---------+--------+ | [facility] | IHS | [id number] | 07/26/19 | | | Indemn | [...] Person | Self | [birth year] | [address] | | | al/Fam | | 1936 | [phone] | [place] | | | sabine | | | 2 (Home) | [address] | + +--------+ +--------+ + + Advance Directives + + + + + | Type | Date Recorded | Patient | Explanation | | | | Scrap Kettle Tender | | + + + + + | Power of | | | | | Patient Portal Representative | | | | + + + + + | Advance | 11/20/2019 8:49 | | | | Directive | AM | | | + + + + + + + + + + | Code Status | Date | Date | Comments | | | Activated | Inactivated | | + + + + + | DNR (No | 11/19/2019 | 11/24/2019 | Pt ok with INTUBATION | | Code) | 8:19 AM | 2:58 PM | | + + + + + + + +---+ | RN or MD to pronounce: | RN may | | | | pronounce | | + + +---+ + + + +---+ | | | | | + + + +---+ | DNR (No | 11/19/2019 | 11/19/2019 | | | Code) | 8:19 AM | 8:19 AM | | + + + +---+ + + +---+ | RN or MD to pronounce: | RN may | | | | pronounce | | + + +---+
--- OUTSIDE RECORDS SUMMARY | ~2020-01-23 | XMS | Encounter Summary ---
Demographics + + + | Address | [address] | | | [place] [address] | + + + | Home Phone [...] [place], | | | | | [place] [address] | | + + + + + | Linda Roman | ECON | Unknown | | + + + + + Care Team Providers + +------+ + | Care Behavioral Therapy Coordinator Name | Role | Phone | [...] + | 11/30/ | Home Care | [facility] [place] | Renetta Lopez, PT | CASE COMMUNICATION | | 2020 | Visit | [place] [address] | | | | | | [place] | | | | | | [address] | | | | | | [phone] | | | +--------+ + + + [...] | | | | | [place] [address] | | | | | | [phone] | | | | | | | | +--------+---------+ + + + documented as of this encounter Visit Diagnoses Not on filedocumented in this encounter"
--- OUTSIDE RECORDS SUMMARY | ~2020-01-23 | XMS | Encounter Summary ---
Demographics + + + | Address | [address] | | | [place] [address] | + + + | Home Phone | | + + + | Preferred Language | Unknown | + + + | Marital Status | | + + + | Mandaen Affiliation | Unknown | + + + | Race | Unknown | + + + | Ethnic Group | Unknown | + + + Author + + + | Author | [facility] | | | and [place] | + + + | Organization | [facility] | | | and [...] [place], | | | | | [place] [address] | | + + + + + | Linda Roman | ECON | Unknown | | + + + + + Care Team Providers + +------+ + | Care Battery Container Tester Aluminum Name | Role | Phone | + +------+ + | Alyssa Joseph | PCP | | + +------+ + Encounter Details +--------+ + + + + | Date | Type | Department | Care Team | Description | +--------+ + + + + | 12/03/ | Documentati | [facility] | Alexey Dan, | | | 2019 | on | [facility] | Technologist | | | | | [address] | | | | | | [address] [place] | | | | | | [address] | | | | | | [phone] | | | +--------+ + + + [...] documented as of this encounter Progress Notes Alexey Dan, Technologist - 12/04/2019 6:30 AM PDTMsTiffanie Peguero sent in these auto detecte d MCT reports yesterday and this morning between 7:34 pm and 2:03 am PDT. The first recordi ng showed her in atrial flutter with variable conduction at a rate up to 130 bpm. She was a t home watching television when the monitor transmitted this recording. This is her first do cumentation of atrial flutter in her 30 day MCT study. The next three transmissions showed her in atrial flutter and atrial fibrillation at a rate of 110 bpm up to 130 bpm. During th ose one minute transmissions, she had pauses of 4.0, 3.5, and 3.1 seconds. She was asleep a t that time. documented in this encounter Plan of Treatment [...] | | | | | [place] [address] | | | | | | [phone] | | | | | | | | +--------+---------+ + + + documented as of this encounter Visit Diagnoses Not on filedocumented in this encounter"
--- OUTSIDE RECORDS SUMMARY | ~2020-01-23 | XMS | Encounter Summary ---
Demographics + + + | Address | [address] | | | [place] [address] | + + + | Home Phone | | + + + | Preferred Language | Unknown | + + + | Marital Status | | + + + | Sabianist Affiliation | Unknown | + + + | Race | Unknown | + + + | Ethnic Group | Unknown | + + + Author + + + | Author | [facility] | | | and [place] | + + + | Organization | [facility] | | | [...] [place], | | | | | [place] [address] | | + + + + + | Linda Roman | ECON | Unknown | | + + + + + Care Team Providers + +------+ + | Care Law Enforcement Officer Name | Role | Phone | + [...] + | 12/15/ | Home Care | [facility] | Renetta Lopez, PT | CASE COMMUNICATION | | 2020 | Visit | [place] [address] | | | | | | [place] | | | | | | [address] | | | | | | [phone] | | | +--------+ + + + [...] | | | | | [place] [address] | | | | | | [phone] | | | | | | | | +--------+---------+ + + + documented as of this encounter Visit Diagnoses Not on filedocumented in this encounter"
--- OUTSIDE RECORDS SUMMARY | ~2020-01-23 | XMS | Encounter Summary ---
Demographics + + + | Address | [address] | | | [place] [address] | + + + | Home Phone [...] + | Author | [facility] | | | and [place] | + + + | Organization | [facility] | | | [...] [place], | | | | | [place] [address] | | + + + + + | Linda Roman | ECON | Unknown | | + + + + + Care Team Providers + +------+ + | Care Cloud Architect Name | Role | Phone | + [...] | Home Care | [facility] [place] | Hair Noe | OT SECONDARY EVAL | | 2020 | Visit | [place] [address] | [place], [place] | | | | | [place] | | | | | | [address] | | | | | | [phone] | | | +--------+ + + + [...] + + + | Blood Pressure | 148/82 | 11/26/2019 11:44 AM | | | | | PDT | | + + + + + | Pulse | 68 | 11/26/2019 11:44 AM | | | | | PDT | | + + + + + | Temperature | 35.8 C (96.4 F) | 11/26/2019 11:44 AM | | | | | PDT | | + + + + + | Respiratory Rate | - | - | | + + + + + | Oxygen Saturation | 97% | 11/26/2019 11:44 AM | | | | | PDT [...] | | | | | [place] [address] | | | | | | [phone] | | | | | | | | +--------+---------+ + + + documented as of this encounter Visit Diagnoses Not on filedocumented in this encounter"
--- OUTSIDE RECORDS SUMMARY | ~2020-01-23 | XMS | Encounter Summary ---
Demographics + + + | Address | [address] | | | [place] [address] | + + + | Home Phone | | + + + | Preferred Language | Unknown | + + + | Marital Status | | + + + | Scientology Affiliation | Unknown | + + + | Race | Unknown | + + + | Ethnic Group | Unknown | + + + Author + + + | Author | [facility] | | | and [place] | + + + | Organization | [facility] | | | [...] [place], | | | | | [place] [address] | | + + + + + | Linda Roman | ECON | Unknown | | + + + + + Care Team Providers + +------+ + | Care Lode Miner Blasting Name | Role | Phone | + +------+ + | Alyssa Joseph | PCP | | + +------+ + Encounter Details +--------+ + + + + | Date | Type | Department | Care Team | Description | +--------+ + + + + | 12/03/ | Orders Only | [facility] | Cassie Crowley, | | | 2019 | | CARDIOLOGY [place] | [place] | | | | | [address] | | | | | | [address] | | | | | | [place] | | | | | | [address] | | | | | | [phone] | | | +--------+ + + + [...] [place] | | | | | | [place] [address] | | | | | | [phone] | | | | | | | | +--------+---------+ + + + documented as of this encounter Visit Diagnoses Not on filedocumented in this encounter"
--- OUTSIDE RECORDS SUMMARY | ~2020-01-23 | XMS | Encounter Summary ---
Demographics + + + | Address | [address] | | | [place] [address] | + + + | Home Phone [...] [place], | | | | | [place] [address] | | + + + + + | Linda Roman | ECON | Unknown | | + + + + + Care Team Providers + +------+ + | Care Diabetes Solutions Specialist Name | Role | Phone | + +------+ + | Eva An MD | PCP | | + +------+ + Encounter Details +--------+ + + + + | Date | Type | Department | Care Team | Description | +--------+ + + + + | 11/09/ | Orders Only | [facility] | Conversion | | | 2014 | | [facility] [place] | Transaction, | | | | | [address] | Provider Unknown | | | | | [place], [place] | [phone] | | | | | [address] | | | | | | [phone] | | | +--------+ + + + [...] by Elisa Del Castillo RN at 11/10/14 5802 Author: Elisa Del Castillo RN Service: (none) Author Type: Registered Nurse Filed: 11/10/14 1611 Encounter Date: 11/10/2014 Status: Signed Silver Buffer: Elisa Del Castillo RN (Registered Nurse) Called [...] [place] | | | | | | [place] [address] | | | | | | [phone] | | | | | | | [...] + + documented in this encounter Results Prateek INR (11/09/2014 11:28 AM PDT) + +---------+ [...]
--- OUTSIDE RECORDS SUMMARY | ~2020-01-23 | XMS | Encounter Summary ---
Demographics + + + | Address | [address] | | | [place] [address] | + + + | Home Phone | | + + + | Preferred Language | Unknown | + + + | Marital Status | | + + + | Adventist Affiliation | Unknown | + + + | Race | Unknown | + + + | Ethnic Group | Unknown | + + + Author + + + | Author | [facility] | | | and [place] | + + + | Organization | [facility] | | [...] [place], | | | | | [place] [address] | | + + + + + | Linda Roman | ECON | Unknown | | + + + + + Care Team Providers + +------+ + | Care Sql Ssrs Ssis Developer Name | Role | Phone | + +------+ + | Alyssa Joseph | PCP | | + +------+ + Reason for Visit + +--------+ + | Reason | Onset | Comments | | | Date | | + +--------+ + | Hospital Follow-up | 11/24/ | | | | 2020 | | + +--------+ + Encounter Details +--------+ + + + + | Date | Type | Department | Care Team | Description | +--------+ + + + + | 11/24/ | Telephone | [facility] | Carolyn Crockett MD | Hospital Follow-up | | 2019 | | Internal Medicine | [address] | | | | | Hospitalists [address] | [place] | | | | | [address] [place] | [address] | | | | | [address] | | | | | | [phone] | | | +--------+ + + + [...] Telephone Encounter - Eliane Hernandez RN - 11/25/2019 1:59 PM PDTFollow up phone call jes martinez, but there was no answer and no voice mail box set up yet. Verified that DC summary was sent to PCP.Electronically signed by Eliane Hernandez RN at 11/15 2:00 PM PDTdocumented in this encounter Plan of [...] | | | | | [place] [address] | | | | | | [phone] | | | | | | | | +--------+---------+ + + + documented as of this encounter Visit Diagnoses Not on filedocumented in this encounter"
--- OUTSIDE RECORDS SUMMARY | ~2020-01-23 | XMS | Encounter Summary ---
Demographics + + + | Address | [address] | | | [place] [address] | + + + | Home Phone | | + + + | Preferred Language | Unknown | + + + | Marital Status | | + + + | Yarsani Affiliation | Unknown | + + + | Race | Unknown | + + + | Ethnic Group | Unknown | + + + Author + + + | Author | [facility] | | | and [place] | + + + | Organization | [facility] | | | [...] [place], | | | | | [place] [address] | | + + + + + | Linda Roman | ECON | Unknown | | + + + + + Care Team Providers + +------+ + | Care Investigative Research Specialist Name | Role | Phone | [...] Visit | [place] [address] | LIVING ADVISOR [address] | | | | | [place] | [place] | | | | | [address] | [address] | | | | | [phone] | | | +--------+ + + + [...] + + + | Blood Pressure | 120/80 | 12/01/2019 12:33 PM | | | | | PDT | | + + + + + | Pulse | 60 | 12/01/2019 12:33 PM | | | | | PDT | | + + + + + | Temperature | 36.6 C (97.8 F) | 12/01/2019 12:33 PM | | | | | PDT | | + + + + + | Respiratory Rate | - | - | | + + + + + | Oxygen Saturation | 97% | 12/01/2019 12:33 PM | | | | | PDT [...] documented in this encounter Miscellaneous Notes Home [facility] - Dru Conn PTA - 12/01/2019 12:30 PM PDT1) Are you or anyone you live [...] Level 3 Travel Health Notice: [place]: [place], [place], [place] Sabetha Vikram [place] ([facility]): [place], [place], [place], [place], [place], [place], [place] , [place], [place], [place], [place], [place], [place], [place], [place], [place], [place], [place], [place], [place], [place], [place], [place], [place], [place], [place], [place], [place], [facility] [place] and [place]: [place], [place], [place], [place], [place] Indicate positive screen if: Answer to any question 1-5 is yes or answer to question 6 indicates travel to a Level 3 josh tination. Consult with sales and business development manager prior to visit. Subjective: pt up walking at therapist arrival. Pt tolerated treatment today with with go od response to interventions. Pt reports she is doing well, using assistive device sometime s. pt is planing to removing clutter ome to use 4ww when it arrives. Objective: instructed and performed: Pt education: -safety: Instructed in the following home safety modifications and equipment use: remove al l throw rugs , clear pathways and use of non-skid footware. -fall prevention: educated pt on general fall prevention measures including: taking extra time after changes in position to ensure no lightheadedness, adequate lighting at night for tolieting and transfers, consistent and appropriate AD use, use of appropriate footwear, req uesting A as needed, and general environmental changes to clear pathways, remove throw rugs and keep obstacles out of walkways. Gait training: Therapist educated pt on appropriate AD use given noted deficits and impairm ents. Instructed pt with use of cane for 4x50 1x100 feet on even surfaces, completed task with supervision. Therapist gave VC for improved postural mechanics and normalized loading mechanics through ankles and hips. Transfer and bed mobility training: instructed pt on corrected sit to stand mechanics incl uding appropriate timing and amplitude of forward wt shift at initiation, avoiding posterior support on legs, and completion of stance with adequate hip extension to align pelvis and s pine for optimal stability and function. There ex: Therapist performed progressive resistance exercises in standing: ankle PF/DF, H S curls, hip add/abd/flexion and mini squats. Therapist adjusted difficulty by changing posi tion relative to gravity and use of therabands/manual resistance as indicated to allow pt to complete 12-15 reps to simulate ~60% of 1 RM for gentle strengthening with respect to OA an d comordities. Individual exercises continuously adjusted to pt tolerance. Verbal and tactil e cues given for form as needed. Assessment: Progress toward goals well with progress with gait and functional mobility. Pt tolerated TX well. P DTdocumented in this encounter Plan of Treatment +--------+---------+ + + + | Date | Type | Specialty | Care Team | Description | +--------+---------+ + + + | 01/26/ | Office | Sleep Medicine | Amy Jiang | | 2019 | Visit | | LATRELL [address] | | | | | [address] [place] | | | | | | [place] [address] | | | | | | [phone] | | | | | | | [...] 1 goal | | STRENGTH | | 6/10/2 | Active | linked to | interventio [...] 1 goal | | TRANSFERS | | 6//2 | Active | linked to | interventio [...] 1 goal | | Disciplines: | | 6//2 | Active | linked to | interventio [...] | | | | | | to philosophy and religion instructor less | | | | | | [...] +--------+--------+ + | PT therapeutic | Problem: PT | | | | | exercise | IMPAIRED | Comple | | | | Description: | STRENGTHGoal: PT | jayden | | | | [...]
--- OUTSIDE RECORDS SUMMARY | ~2020-01-23 | XMS | Encounter Summary ---
Demographics + + + | Address | [address] | | | [place] [address] | + + + | Home Phone [...] Author | [facility] | | | and [place] | + + + | Organization | [facility] | | [...] [place], | | | | | [place] [address] | | + + + + + | Linda Roman | ECON | Unknown | | + + + + + Care Team Providers + +------+ + | Care Swimming Pool Servicer Name | Role | Phone | + +------+ + | Eva An MD | PCP | | + +------+ + Encounter Details +--------+ + + + + | Date | Type | Department | Care Team | Description | +--------+ + + + + | 10/18/ | Orders Only | [facility] | Conversion | | | 2014 | | [facility]ARDIOLOG[facility] [place] | Transaction, | | | | | [address] | Provider Unknown | | | | | [place], [place] | [phone] | | | | | [address] | | | | | | [phone] | | | +--------+ + + + [...] | | | | | [place] [address] | | | | | | [phone] | | | | | | | [...]
--- OUTSIDE RECORDS SUMMARY | ~2020-01-23 | XMS | Encounter Summary ---
Demographics + + + | Address | [address] | | | [place] [address] | + + + | Home Phone | | + + + | Preferred Language | Unknown | + + + | Marital Status | | + + + | Sikh Affiliation | Unknown | + + + | Race | Unknown | + + + | Ethnic Group | Unknown | + + + Author + + + | Author | [facility] | | | and [place] | + + + | Organization | [facility] | | [...] [place], | | | | | [place] [address] | | + + + + + | Linda Roman | ECON | Unknown | | + + + + + Care Team Providers + +------+ + | Care Brewing Technician Name | Role | Phone | [...] + | 12/07/ | Home Care | [facility] [place] | Diane Marshall, | SN DISCHARGE (OASIS) | | 2020 | Visit | [place] [address] | RN | | | | | [place] | | | | | | [address] | | | | | | [phone] | | | +--------+ + + + [...] Home Health - Diane Marshall RN - 12/08/2019 10:01 AM PDT1) Are you or anyone you [...] Level 3 Travel Health Notice: [place]: [place], [place], [facility] [place] ([facility], [place], [place], [place], [place], [place], [place] , Bernardo, Greece, [place], [place], [place], [place], [place], [place], [place], [place], [place], [place], [place], [place], [place], [place], [place], [place], [place], [place], [place], [place] and [place]: [place], [place], [place] C, [place], [place] Indicate positive screen if: Answer to any question 1-5 is yes or answer to question 6 indicates travel to a Level 3 josh tination. Consult with oracle database manager prior to visit. Discharge Summary: agency Goals met: yes If goals not met, document barriers: Summary of care provided during episode: Pt was seen after Hospital admission for septic sh ock. Pt lives in mobile home with her daughter, which appears does not help pt at all. Pt has been instructed on her medications and her diabetes and importance of taking meds and ch ecking CBG. Pt still does not have a meter. She manages her own medications and fills a me d box weekly. Pt does not use an assistive device, and ambulates un assisted. SHe is now dr iving her car again to town and to MD khan as she needs. Pt is instructed again on homebou nd status and she reports she is no longer homebound. Pt is DC from RN and PT today. Pt is not longer on Lovenox and is taking her sharps container today to [facility]. Disciplines continuing care: None Community discharge plan: Home Was patient discharged to a post-acute facility or to another home health agency? yes If yes, Name of location: Community Resources/Referrals made or provided during course of care: None Current functional and/or medication management ability: Independant, but could use oversit e. Shortness of breath: This patient becomes short of breath when walking > 20 feet or climbin g stairs. Bathing: This patient is able to bathe independently, including getting in/out of the tub/s hower without devices. Transfers: This patient independently transfers without an AD. Ambulation: This patient independently goes up/down stairs and walks over even/uneven terra in without an AD. Medication: This patient is independent taking medications. Bathing plan: Jennifer alvarenga in this encounter Plan of Treatment +--------+---------+ + + + | Date | Type | Specialty | Care Team | Description | +--------+---------+ + + + | 01/26/ | Office | Sleep Medicine | Amy Jiang | | 2019 | Visit | | [place] [address] | | | | | | [address] | | | | | | [place] [address] | | | | | | [phone] | | | | | | | | +--------+---------+ + + + documented as of this encounter Visit Diagnoses Not on filedocumented in this encounter Home Health Visit - Care Plan + + | Visit Type - SN - OASIS D/C | | Discipline - Snf | + [...] | | | | 1 goal | 1 goal | | Elimination | | | [...]
--- OUTSIDE RECORDS SUMMARY | ~2020-01-23 | XMS | Encounter Summary ---
Demographics + + + | Address | [address] | | | [place] [address] | + + + | Home Phone | | + + + | Preferred Language | Unknown | + + + | Marital Status | | + + + | Confucianism Affiliation | Unknown | + + + | Race | Unknown | + + + | Ethnic Group | Unknown | + + + Author + + + | Author | [facility] | | | and [place] | + + + | Organization | [facility] | | | [...] [place], | | | | | [place] [address] | | + + + + + | Linda Roman | ECON | Unknown | | + + + + + Care Team Providers + +------+ + | Care Packaging Associate Name | Role | Phone | + +------+ + | Alyssa Joseph | PCP | | + +------+ + Reason for Visit + +--------+ + | Reason | Onset | Comments | | | Date | | + +--------+ + | Follow-up | 12/03/ | | | | 2020 | | + +--------+ + Encounter Details +--------+ + + + + | Date | Type | Department | Care Team | Description | +--------+ + + + + | 12/03/ | Telephone | [facility] | Marie | Follow-up | | 2019 | | [facility] [place] | Canelo Arce MD [address] | | | | | [address] | [address] | | | | | [place] [address] [place] | [address] [place] | | | | | [place] | [id number] | | | | | [address] | | | | | | [phone] | | | +--------+ + + + [...] Telephone Encounter - Cassie Crowley RN - 12/04/2019 2:38 PM PDT Spoke to patient per Dr. Salazar. Pt verbalized understanding of medication change. Adv ised her to make sure she was having her INR checked regularly. Called PCP to follow up on INR and left message for them to call back. Message Received: Today Message Contents MD Cassie Mckinnon RN Please have her decrease her Toprol to 25 mg daily. Continue the monitor. She is anticoag ulated with warfarin--make sure she's getting her INR's checked to make sure she's therapeut ic. She has an appointment with Dr. York on 01/13 with an echo first to discuss placing a Bi V pacemaker. Thanks, Canelo Salazar MD, [facility] documented in this en counter Plan of [...] | | | | | [place] [address] | | | | | | [phone] | | | | | | | | +--------+---------+ + + + documented as of this encounter Visit Diagnoses Not on filedocumented in this encounter"
--- OUTSIDE RECORDS SUMMARY | ~2020-01-23 | XMS | Encounter Summary ---
Demographics + + + | Address | [address] | | | [place] [address] | + + + | Home Phone | | + + + | Preferred Language | Unknown | + + + | Marital Status | | + + + | Yazidi Affiliation | Unknown | + + + | Race | Unknown | + + + | Ethnic Group | Unknown | + + + Author + + + | Author | [facility] | | | and [place] | + + + | Organization | [facility] | | | [...] [place], | | | | | [place] [address] | | + + + + + | Linda Roman | ECON | Unknown | | + + + + + Care Team Providers + +------+ + | Care Browning Processor Name | Role | Phone | + +------+ + | Alyssa Joseph | PCP | | + +------+ + Reason for Visit Evaluate & Treat (Routine) +--------+--------+ + + + + | Status | Reason | Specialty | Diagnoses / | Referred By | Referred To | | | | | Procedures | Contact | Contact | +--------+--------+ + + + + | Closed | | Nurse | Diagnoses | Jake, | Apolinar, | | | | Practitioner- | Obstructive | REBECCA Shah | Amy | | | | Adult Health | sleep apnea | [id number] | [place] | | | | / Sleep | (adult) | LESLIE ALCARAZ | [address] | | | | Medicine | (pediatric) | [place], | [address] | | | | | consult, | [place] [address] | [place], | | | | | [email or web address], no | Phone: | [place] [address] | | | | | ss, no | [phone] | Phone: | | | | | cpap/AO | Fax: | [phone] | | | | | Procedures | [phone] | Fax: | | | | | NEW PATIENT | | [phone] | +--------+--------+ + + + + Encounter Details +--------+---------+ + + + | Date | Type | Department | Care Team | Description | +--------+---------+ + + + | 12/23/ | Office | [facility] | Amy Jiang | No-show for | | 2020 | Visit | SLEEP DISORDER [address] | [place] [address] | appointment | | | | [address] [place] | [address] [place] | | | | | [place] [address] | [place] [address] | | | | | [phone] | [phone] | | | | | | | | +--------+---------+ + + + Social History [...] documented as of this encounter Progress Notes Amy Jiang NP - 12/24/2019 2:00 PM PDTThe patient did not show up for this appointment and did not call to cancel it. We will attempt to reschedule.Electronically sig gregorio by Amy Jiang NP at 12/24/2019 2:10 PM PDTdocumented in this encounter Plan of [...] | | | | | | [place] [address] | | | | | | [phone] | | | | | | | | +--------+---------+ + + + documented as of this encounter Visit Diagnoses + + | Diagnosis | + + | No-show for appointment | + + documented in this encounter"
[~2020-01-23 17:27] MED LIST changes: +JANUMET 50-1,01 EACH PO; +ROBAFEN DM COU237 ML PO; +SINGULAIR10 MG PO; +TYLENOL325 MG PO; +WARFARIN SODIU2.5 MG PO; +WARFARIN SODIUM1 MG PO
--- NOTE | 2020-01-24 21:22 | EKG ---
[facility] [address] [facility] [place] [address] Signed Sinus rhythm with premature atrial complexes Left axis deviation Left ventricular hypertrophy with QRS widening and repolarization abnormality Abnormal ECG When compared with ECG of 19-NOV-2019 07:22, Significant changes have occurred Confirmed by CHER COPELAND MD ([id number]) on 01/24/2020 9:21:59 PM Electronically Signed By: CHER COPELAND MD 01/24/202121 PATIENT NAME: ILYAKIMBERLEEMEJIA SPRINGER Electrocardiogram DATE OF : 39 PHYSICIAN: CHER COPELAND MD REPORT #: [id number] REPORT IS CONFIDENTIAL AND NOT TO BE RELEASED WITHOUT AUTHORIZATION
== END 2020-01-23 23:55 | disposition short-term general hospital (02) ==
LOC: ED 17:27
DX: G93.9 Disorder of brain, unspecified (principal); R41.0 Disorientation, unspecified; I10 Essential (primary) hypertension; J45.909 Unspecified asthma, uncomplicated; E11.9 Type 2 diabetes mellitus without complications; I25.2 Old myocardial infarction; Z88.0 Allergy status to penicillin; Z88.1 Allergy status to other antibiotic agents; Z88.8 Allergy status to other drugs, medicaments and biological substances; Z91.09 Other allergy status, other than to drugs and biological substances; Z79.899 Other long term (current) drug therapy; Z79.82 Long term (current) use of aspirin; Z79.01 Long term (current) use of anticoagulants
CPT/HCPCS: 51701; 70450; 71045; 80053; 81001; 82140; 85025; 85610; 93005; 93010; 99285-25; G0480

== ENCOUNTER 2020-05-23 19:07 | Emergency (ER) | payer MEDICARE, OTHER ==
[~2020-05-23] VITALS: Ht 152.4 cm; Wt 65.3 kg
[~2020-05-23 19:07] MED LIST changes: -COZAAR100 MG PO; +COZAAR50 MG PO; -METOPROLOL SUC100 MG PO; +TOPROL XL25 MG PO; -WARFARIN SODIUM1 MG PO; +WARFARIN SODIUM2 MG PO
== END 2020-05-23 21:46 | disposition home or self-care (01) ==
LOC: ED 19:07
DX: S60.221A Contusion of right hand, initial encounter (principal); W01.198A Fall on same level from slipping, tripping and stumbling with subsequent striking against other object, initial encounter; I10 Essential (primary) hypertension; E78.00 Pure hypercholesterolemia, unspecified; J45.909 Unspecified asthma, uncomplicated; E11.9 Type 2 diabetes mellitus without complications; I25.2 Old myocardial infarction; Z88.0 Allergy status to penicillin; Z88.1 Allergy status to other antibiotic agents; Z88.8 Allergy status to other drugs, medicaments and biological substances; Z79.899 Other long term (current) drug therapy; Z79.82 Long term (current) use of aspirin; Z79.01 Long term (current) use of anticoagulants
CPT/HCPCS: 70450; 73130; 99284-25

== ENCOUNTER 2020-07-19 20:51 | Emergency (ER) | payer MEDICARE, OTHER ==
[~2020-07-19] VITALS: Ht 152.4 cm; Wt 65.3 kg
== END 2020-07-19 22:29 | disposition home or self-care (01) ==
LOC: ED 20:51
DX: R04.0 Epistaxis (principal); R79.1 Abnormal coagulation profile; I10 Essential (primary) hypertension; E78.00 Pure hypercholesterolemia, unspecified; J45.909 Unspecified asthma, uncomplicated; E11.9 Type 2 diabetes mellitus without complications; I25.2 Old myocardial infarction; Z86.73 Personal history of transient ischemic attack (TIA), and cerebral infarction without residual deficits; Z88.8 Allergy status to other drugs, medicaments and biological substances; Z88.0 Allergy status to penicillin; Z88.1 Allergy status to other antibiotic agents; Z79.899 Other long term (current) drug therapy; Z79.01 Long term (current) use of anticoagulants
CPT/HCPCS: 80048; 85025; 85610; 99283

== ENCOUNTER 2020-07-23 01:50 | Emergency (ER) | payer MEDICARE, OTHER ==
[~2020-07-23] VITALS: Ht 152.4 cm; Wt 59.6 kg
== END 2020-07-23 03:42 | disposition home or self-care (01) ==
LOC: ED 01:50
DX: R04.0 Epistaxis (principal); I10 Essential (primary) hypertension; E78.00 Pure hypercholesterolemia, unspecified; J45.909 Unspecified asthma, uncomplicated; E11.9 Type 2 diabetes mellitus without complications; I25.2 Old myocardial infarction; Z88.0 Allergy status to penicillin; Z88.1 Allergy status to other antibiotic agents; Z88.8 Allergy status to other drugs, medicaments and biological substances; Z79.899 Other long term (current) drug therapy; Z79.01 Long term (current) use of anticoagulants
CPT/HCPCS: 30901; 85025; 85610; 85730; 99283-25

== ENCOUNTER 2020-09-13 20:14 | Emergency (ER) | payer MEDICARE, OTHER ==
[~2020-09-13] VITALS: Ht 152.4 cm; Wt 59.6 kg
--- NOTE | 2020-09-14 13:46 | EKG ---
[facility] [address] [facility] [place] [address] Signed Normal sinus rhythm Left axis deviation Left ventricular hypertrophy with QRS widening T wave abnormality, consider anterolateral ischemia Abnormal ECG When compared with ECG of 23-JAN-2020 20:30, premature atrial complexes are no longer present ST now depressed in Anterior leads T wave inversion more evident in Anterolateral leads QT has lengthened Confirmed by CHER COPELAND MD ([id number]) on 09/14/2020 1:46:50 PM Electronically Signed By: CHER COPELAND MD 09/14/20 1346 PATIENT NAME: KIMBERLEE CARABALLO Electrocardiogram DATE OF : 39 PHYSICIAN: CHER COPELAND MD REPORT #: [id number] REPORT IS CONFIDENTIAL AND NOT TO BE RELEASED WITHOUT AUTHORIZATION
== END 2020-09-14 00:15 | disposition home or self-care (01) ==
LOC: ED 20:14
DX: R11.10 Vomiting, unspecified (principal); I10 Essential (primary) hypertension; E78.00 Pure hypercholesterolemia, unspecified; J45.909 Unspecified asthma, uncomplicated; E11.9 Type 2 diabetes mellitus without complications; I25.2 Old myocardial infarction; Z86.73 Personal history of transient ischemic attack (TIA), and cerebral infarction without residual deficits; Z88.0 Allergy status to penicillin; Z88.8 Allergy status to other drugs, medicaments and biological substances; Z88.1 Allergy status to other antibiotic agents; Z79.899 Other long term (current) drug therapy; Z79.01 Long term (current) use of anticoagulants
CPT/HCPCS: 71045; 74177; 76705; 80053; 81001; 83690; 83735; 85025; 85610; 85730; 93005; 93010; 99284-25; J1200

== ENCOUNTER 2020-09-23 14:52 | Emergency (ER) | payer MEDICARE, OTHER ==
[~2020-09-23] VITALS: Ht 157.5 cm; Wt 65.0 kg
--- NOTE | 2020-09-23 20:46 | EKG ---
[facility] [address] [facility] [place] [address] Signed Atrial fibrillation with rapid ventricular response with premature ventricular or aberrantly conducted complexes Left axis deviation Left ventricular hypertrophy with QRS widening T wave abnormality, consider lateral ischemia Abnormal ECG When compared with ECG of 13-SEP-2020 21:02, Atrial fibrillation has replaced Sinus rhythm ST elevation has replaced ST depression in Anterior leads Nonspecific T wave abnormality no longer evident in Inferior leads Confirmed by JORGE ALBERTO SHRESTHA MD ([id number]) on 09/23/2020 8:46:11 PM Electronically Signed By: JORGE ALBERTO SHRESTHA MD 09/23/202045 PATIENT NAME: KIMBERLEE CARABALLO GIAN Electrocardiogram DATE OF : 39 PHYSICIAN: JORGE ALBERTO SHRESTHA MD REPORT #: [id number] REPORT IS CONFIDENTIAL AND NOT TO BE RELEASED WITHOUT AUTHORIZATION
--- NOTE | 2020-09-23 20:47 | EKG ---
[facility] [address] [facility] [place] [address] Signed Sinus rhythm with premature atrial complexes Left axis deviation Left ventricular hypertrophy with QRS widening and repolarization abnormality Abnormal ECG When compared with ECG of 23-SEP-2020 15:40, (Unconfirmed) Sinus rhythm has replaced Atrial fibrillation Vent. rate has decreased BY 50 BPM T wave inversion now evident in Inferior leads Confirmed by JORGE ALBERTO SHRESTHA MD ([id number]) on 09/23/2020 8:47:15 PM Electronically Signed By: JORGE ALBERTO SHRESTHA MD 09/23/202046 PATIENT NAME: KIMBERLEE CARABALLO GIAN Electrocardiogram DATE OF : 39 PHYSICIAN: JORGE ALBERTO SHRESTHA MD REPORT #: [id number] REPORT IS CONFIDENTIAL AND NOT TO BE RELEASED WITHOUT AUTHORIZATION
== END 2020-09-23 19:48 | disposition home or self-care (01) ==
LOC: ED 14:52
DX: I48.91 Unspecified atrial fibrillation (principal); I10 Essential (primary) hypertension; E78.00 Pure hypercholesterolemia, unspecified; J45.909 Unspecified asthma, uncomplicated; E11.9 Type 2 diabetes mellitus without complications; I25.2 Old myocardial infarction; F17.200 Nicotine dependence, unspecified, uncomplicated; Z88.0 Allergy status to penicillin; Z88.1 Allergy status to other antibiotic agents; Z88.8 Allergy status to other drugs, medicaments and biological substances; Z79.899 Other long term (current) drug therapy; Z79.01 Long term (current) use of anticoagulants
CPT/HCPCS: 71045; 80053; 83735; 83880; 84484; 85025; 85610; 92960; 93005; 93010; 99285-25; J2704

== ENCOUNTER 2020-10-19 10:49 | Emergency (ER) | payer MEDICARE, OTHER ==
--- NOTE | 2020-10-19 17:01 | EKG ---
[facility] [address] [facility] [place] [address] Signed Sinus tachycardia Left ventricular hypertrophy with QRS widening and repolarization abnormality Abnormal ECG When compared with ECG of 23-SEP-2020 18:09, premature atrial complexes are no longer present Vent. rate has increased BY 41 BPM Confirmed by JORGE ALBERTO SHRESTHA MD ([id number]) on 10/19/2020 5:01:29 PM Electronically Signed By: JORGE ALBERTO SHRESTHA MD 10/19/20 1701 PATIENT NAME: ILYAKIMBERLEEMEJIA SPRINGER Electrocardiogram DATE OF : 39 PHYSICIAN: JORGE ALBERTO SHRESTHA MD REPORT #: [id number] REPORT IS CONFIDENTIAL AND NOT TO BE RELEASED WITHOUT AUTHORIZATION
== END 2020-10-19 14:10 | disposition short-term general hospital (02) ==
LOC: ED 10:49
DX: S72.011A Unspecified intracapsular fracture of right femur, initial encounter for closed fracture (principal); Z20.822 Contact with and (suspected) exposure to COVID-19; I11.0 Hypertensive heart disease with heart failure; I50.9 Heart failure, unspecified; R77.8 Other specified abnormalities of plasma proteins; W01.198A Fall on same level from slipping, tripping and stumbling with subsequent striking against other object, initial encounter; I10 Essential (primary) hypertension; E78.00 Pure hypercholesterolemia, unspecified; J45.909 Unspecified asthma, uncomplicated; E11.9 Type 2 diabetes mellitus without complications; I25.2 Old myocardial infarction; F17.200 Nicotine dependence, unspecified, uncomplicated; Z88.0 Allergy status to penicillin; Z88.1 Allergy status to other antibiotic agents; Z88.8 Allergy status to other drugs, medicaments and biological substances; Z79.899 Other long term (current) drug therapy; Z79.01 Long term (current) use of anticoagulants
CPT/HCPCS: 51702; 70450; 71045; 72125; 73502; 80053; 81001; 83880; 84484; 85025; 85610; 93005; 93010; 99285-25; C9803; U0003

== ENCOUNTER 2021-01-08 03:00 | Emergency (ER) | payer MEDICARE, OTHER ==
[~2021-01-08] VITALS: Ht 157.5 cm; Wt 65.0 kg
[2021-01-09] MEDS ORDERED: JANTOVEN1 MG PO (17:02)
[2021-01-09] MEDS ORDERED: JANTOVEN2 MG PO (17:02)
== END 2021-01-08 04:20 | disposition home or self-care (01) ==
LOC: ED 03:00
DX: S00.01XA Abrasion of scalp, initial encounter (principal); I10 Essential (primary) hypertension; E78.00 Pure hypercholesterolemia, unspecified; J45.909 Unspecified asthma, uncomplicated; E11.9 Type 2 diabetes mellitus without complications; I25.2 Old myocardial infarction; Z87.891 Personal history of nicotine dependence; Z88.0 Allergy status to penicillin; Z88.1 Allergy status to other antibiotic agents; Z88.8 Allergy status to other drugs, medicaments and biological substances; Z79.899 Other long term (current) drug therapy; Z79.01 Long term (current) use of anticoagulants; W01.10XA Fall on same level from slipping, tripping and stumbling with subsequent striking against unspecified object, initial encounter
CPT/HCPCS: 70450; 85610; 99284-25

== ENCOUNTER 2021-01-09 16:32 | Emergency (ER) | payer MEDICARE, OTHER ==
[~2021-01-09] VITALS: Ht 157.5 cm; Wt 65.0 kg
[2021-01-09] MEDS ORDERED: JANTOVEN1 MG PO (17:02)
[2021-01-09] MEDS ORDERED: JANTOVEN2 MG PO (17:02)
== END 2021-01-09 21:04 | disposition home or self-care (01) ==
LOC: ED 16:32
DX: R31.9 Hematuria, unspecified (principal); I10 Essential (primary) hypertension; E78.00 Pure hypercholesterolemia, unspecified; J45.909 Unspecified asthma, uncomplicated; E11.9 Type 2 diabetes mellitus without complications; I25.2 Old myocardial infarction; Z87.891 Personal history of nicotine dependence; Z88.0 Allergy status to penicillin; Z88.1 Allergy status to other antibiotic agents; Z88.8 Allergy status to other drugs, medicaments and biological substances; Z79.899 Other long term (current) drug therapy; Z79.01 Long term (current) use of anticoagulants
CPT/HCPCS: 51701; 81001; 99283-25

== ENCOUNTER 2021-03-10 21:36 | Inpatient (IN) | payer MEDICARE, OTHER ==
[~2021-03-10] VITALS: Ht 157.5 cm; Wt 68.0 kg
[~2021-03-10 21:36] MED LIST changes: +JANTOVEN1 MG PO; +JANTOVEN2 MG PO; -TOPROL XL25 MG PO; +TOPROL XL50 MG PO
[2021-03-10] MEDS ORDERED: XARELTO20 MG PO (22:15)
--- NOTE | 2021-03-11 01:59 | NUR ---
VERIFIED FLUIDS ORDERS WITH . CALLED PHARMACY TO HAVE ORIGINAL BICARB ORDER REACTIVATED DUE TO DC UPON TRANSFER.
--- NOTE | 2021-03-11 02:00 | NUR ---
PATIENT ARRIVED VIA STRETCHER. MOVED OVER WITH STAFF FULL ASSIST TO THE BED. PATIENT IS ALERT AND ORIENTED X4. DENIED PAIN. VS STABLE. GATICA EMPTIED FOR 700MLS CLEAR YELLOW URINE. LABS DRAWN. DISCUSSED IV FLUIDS WITH MD AND STARTED PER ORDER. PATIENT IS VERY TIRED. ALLOWED TO REST. CALL LIGHT IN REACH.
--- NOTE | 2021-03-11 07:45 | NUR ---
Patient arrived to the medical floor from CCU. Patient awake, alert and oriented x4. Patient denies pain at this time. Breakfast order placed. Patient oriented to room and call light. No needs. Personal supplies and call light within reach.
[2021-03-11] MEDS ORDERED: TORSEMIDE10 MG PO (09:19)
[2021-03-11] MEDS ORDERED: ALDACTONE25 MG PO (09:19)
[2021-03-11] MEDS ORDERED: LISINOPRIL2.5 MG PO (09:20)
[2021-03-11] MEDS ORDERED: TYLENOL325 MG PO (09:21)
[2021-03-11] MEDS ORDERED: NITROSTAT0.4 MG SL (09:22)
[2021-03-11] MEDS ORDERED: POTASSIUM CHLO15 MEQ PO (09:23)
[2021-03-11] MEDS ORDERED: CALCIUM500 MG PO (09:25)
--- NOTE | 2021-03-11 09:26 | NUR ---
MED REC COMPLETE
--- NOTE | 2021-03-11 10:36 | NUR ---
Vitals, I&Os are complete. Patient was explained to about what the jimenez is and how it can help her. Call light is in reach.
--- NOTE | 2021-03-11 13:41 | NUR ---
Patient sitting up in chair resting, respirations even non labored. Patient tolerated lunch well, consumed most of her food. IV fluids infusing per provider order. Shea intact, patent with clear yellow urine. No needs. Personal supplies and call light within reach.
--- NOTE | 2021-03-11 14:54 | NUR ---
Call light is in reach.
--- NOTE | 2021-03-11 16:56 | NUR ---
Patient watching tv, no distress, respirations even and non labored. Dinner order placed. No needs. Personal supplies and call light within reach.
--- NOTE | 2021-03-11 18:14 | NUR ---
B/P was 106/47. Patient call light is in reach. RN will be informed about B/P being low.
--- NOTE | 2021-03-11 19:30 | NUR ---
REPORT RECEIVED FROM DAY SHIFT RN. PT LYING IN BED ALERT AND ORIENTED. IVF COMPLETE, PT SL. DENIES NEEDS AT THIS TIME. WHITE BOARD UPDATED. CALL LIGHT IN REACH.
--- NOTE | 2021-03-11 20:36 | NUR ---
EVENING ASSESSMENT COMPLETE. SCHEDULED MEDS ADMINISTERED PER EMAR. PT DENIES PAIN OR SOB. TELE #5. SR. HR 60'S-70'S. GATICA PATENT WITH YELLOW URINE. GATICA CARE COMPLETE. SCAB PRESENT ON RLE COVERED WITH ALLEVYN IT WAS STUCK TO PT SOCK. ASSISTED PT TO REPOSITION IN BED. DENIES QUESTIONS OR CONCERNS. CALL LIGHT IN REACH.
--- NOTE | 2021-03-11 22:04 | EKG ---
[facility] [address] [facility] [place] [address] Signed Normal sinus rhythm Left axis deviation Left ventricular hypertrophy with QRS widening and repolarization abnormality Abnormal ECG When compared with ECG of 10-MAR-2021 22:01, (Unconfirmed) Left bundle branch block is no longer present Confirmed by SIENNA WILKES DO ([id number]) on 03/11/2021 10:04:49 PM Electronically Signed By: SIENNA WILKES DO 03/11/21 2204 PATIENT NAME: KIMBERLEE CARABALLO Electrocardiogram DATE OF : 39 PHYSICIAN: SIENNA WILKES DO REPORT #: [id number] REPORT IS CONFIDENTIAL AND NOT TO BE RELEASED WITHOUT AUTHORIZATION
--- NOTE | 2021-03-11 23:23 | NUR ---
PT RESTING IN BED WITH EYES CLOSED. RESPIRATIONS EVEN. NO APPARENT DISTRESS.
--- NOTE | 2021-03-12 01:06 | NUR ---
PT LYING ON RIGHT SIDE RESTING WITH EYES CLOSED. RESPIRATIONS EVEN. CALL LIGHT IN REACH.
--- NOTE | 2021-03-12 02:58 | NUR ---
PT AWAKE IN BED. ASSISTED TO REPOSITION. HOB ELEVATED. COFFEE PROVIDED PER REQUEST. PT DENIES PAIN. DENIES SOB. ASSESSMENT COMPLETE. NO FURTHER NEEDS. CALL LIGHT IN REACH.
--- NOTE | 2021-03-12 05:24 | NUR ---
PT RESTING IN BED WITH EYES CLOSED, NAD.
--- NOTE | 2021-03-12 06:56 | NUR ---
VS AND I&O COMPLETE. GATICA WITH QS CLEAR YELLOW URINE. BREAKFAST ORDERED. PT DENIES FURTHER NEEDS.
--- NOTE | 2021-03-12 08:03 | NUR ---
Patient awake, alert to self. Patient reports she has no pain. IV saline locked. Patient reports she ordered her breakfast. No current needs. Personal supplies and call light within reach.
--- NOTE | 2021-03-12 09:08 | NUR ---
Shea catheter removed per provider order. Catheter tip intact upon removal. Patient tolerated well. Patient due to void.
--- NOTE | 2021-03-12 10:44 | EKG ---
[facility] [address] [facility] [place] [address] Signed Normal sinus rhythm Left axis deviation Left bundle branch block Abnormal ECG When compared with ECG of 19-OCT-2020 10:45, Vent. rate has decreased BY 46 BPM Left bundle branch block is now present Confirmed by SIENNA WILKES DO ([id number]) on 03/12/2021 10:43:58 AM Electronically Signed By: SIENNA WILKES DO 03/12/21 1044 PATIENT NAME: ILYAKIMBERLEE Electrocardiogram DATE OF : 39 PHYSICIAN: SIENNA WILKES DO REPORT #: [id number] REPORT IS CONFIDENTIAL AND NOT TO BE RELEASED WITHOUT AUTHORIZATION
--- NOTE | 2021-03-12 13:26 | NUR ---
PT RESTING IN BED EYES CLOSED RESP EVEN, NO DISTRESS NOTED. PT APPEARS TO BE SLEEPING. PT ALERT TO THIS RN IN ROOM WITH FRESH WATER, ASKED IF SHE FELT HUNGARY HER LUNCH TRAY HAD JUST ARRIVED, SHE SAID YES. SAT PATIENT UP AT HEAD AT HIGHEST POSITION TO EAT SHE DID NOT WANT TO GET OUT OF BED AT THIS TIME.
--- NOTE | 2021-03-12 15:17 | NUR ---
PT UP AMBULATED TO BATHROOM STANDBY ASSIST, WITH HARD SOLE SHOE CAST ON RIGHT FOOT, PT REPORTS HER RIGHT FOOT STILL HURTS, BUT IS TOLERABLE, VOIDED 200ML URINE.
[2021-03-12] MEDS ORDERED: TYLENOL325 M1 PO (15:52)
--- NOTE | 2021-03-12 18:18 | NUR ---
DISCHARGE PACKET GIVEN WITH SON IN THE ROOM FOR ALL EDUCATIONS, INCLUDING ORTHO SHOE INSTRUCTIONS, FOLLOW UP LABS, FOLLOW UP APPOINTMENTS WITH BOTH AND HER PRIMARY CARE PROVIDER, EDUCATION GIVEN ON THINGS TO MONITOR FOR NEED TO SEEK MEDICAL ATTENTION, ALSO IV SITE REMOVED WNL, EDUCATIONS PROVIDED, SON ALYSHA TAVAREZ HAD NO FURTHER QUESTIONS , HE WAS ABLE TO REPORT BACK ALL EDUCATION INCLUDING NEXT DOSE AND LAST DOSE MEDICATIONS. ALYSHA APPEARS TO BE VERY ATTENTIVE AND KNOWLEDGABLE ABOUT HIS MOTHERS CARE.
== END 2021-03-12 18:10 | disposition home or self-care (01) | DRG 641 ==
LOC: ED 21:36 → MS 21:38 → CCU 21:38 → MS 03-11 07:30
PROVIDERS: ADMIT Student in an Organized Health Care Education/Training Program; ATTEND Student in an Organized Health Care Education/Training Program
DX: E87.5 Hyperkalemia (principal); N17.9 Acute kidney failure, unspecified; I50.22 Chronic systolic (congestive) heart failure; E87.2 Acidosis; E86.0 Dehydration; E87.1 Hypo-osmolality and hyponatremia; S92.354A Nondisplaced fracture of fifth metatarsal bone, right foot, initial encounter for closed fracture; E78.5 Hyperlipidemia, unspecified; Z20.822 Contact with and (suspected) exposure to COVID-19; J45.909 Unspecified asthma, uncomplicated; I11.0 Hypertensive heart disease with heart failure; I48.0 Paroxysmal atrial fibrillation; I25.10 Atherosclerotic heart disease of native coronary artery without angina pectoris; E11.9 Type 2 diabetes mellitus without complications; I25.2 Old myocardial infarction; Z86.73 Personal history of transient ischemic attack (TIA), and cerebral infarction without residual deficits; Z87.891 Personal history of nicotine dependence; Z90.710 Acquired absence of both cervix and uterus; Z95.5 Presence of coronary angioplasty implant and graft; Z79.899 Other long term (current) drug therapy; Z79.01 Long term (current) use of anticoagulants; Z98.890 Other specified postprocedural states; Z98.51 Tubal ligation status; Z88.0 Allergy status to penicillin; Z88.1 Allergy status to other antibiotic agents; Z88.8 Allergy status to other drugs, medicaments and biological substances; X58.XXXA Exposure to other specified factors, initial encounter
CPT/HCPCS: 51702; 73630; 80048; 80053; 81001; 83605; 83735; 84484; 85025; 85610; 93005; 93010; 97110; 97162; 99285-25; J0610; J1815; J7030; J7040; J7070; J7121; U0003

== ENCOUNTER 2022-05-04 23:16 | Emergency (ER) | payer MEDICARE, OTHER ==
[~2022-05-04] VITALS: Ht 157.5 cm; Wt 63.7 kg
[~2022-05-04 23:16] MED LIST changes: +ALDACTONE25 MG PO; +CALCIUM500 MG PO; +LISINOPRIL2.5 MG PO; +NITROSTAT0.4 MG SL; +OXYCODONE HCL5 M1 PO; +POTASSIUM CHLO15 MEQ PO; +STOOL SOFTENER250 MG PO; +TORSEMIDE10 MG PO; +TYLENOL EXTRA500 MG PO; +TYLENOL325 M1 PO; +XARELTO20 MG PO
[2022-05-04] MEDS ORDERED: MELATONIN3 MG PO (23:38)
[2022-05-04] MEDS ORDERED: SEN-O-TAB8.6 MG PO (23:39)
[2022-05-04] MEDS ORDERED: METOPROLOL SUCC25 MG PO (23:39)
[2022-05-04] MEDS ORDERED: ROSUVASTATIN CAL5 MG PO (23:40)
[2022-05-04] MEDS ORDERED: LISINOPRIL2.5 MG PO (23:40)
[2022-05-04] MEDS ORDERED: CALCIUM 600 MG1 EAC7 PO (23:41)
--- NOTE | 2022-05-05 14:02 | EKG ---
[facility] [address] [employer] [place] [address] Signed Heart Block, Second degree, Type 2 Mobitz Right bundle branch block Left anterior fascicular block Bifascicular block Left ventricular hypertrophy with repolarization abnormality ( R in aVL ) Cannot rule out Septal infarct , age undetermined Abnormal ECG When compared with ECG of 11-MAR-2021 09:16, Vent. rate has decreased BY 53 BPM (RBBB and left anterior fascicular block) is now present Minimal criteria for Septal infarct are now present Confirmed by CHER COPELAND MD ([id number]) on 05/05/2022 2:02:42 PM Electronically Signed By: CHER COPELAND MD 05/05/22 1402 PATIENT NAME: ILYAKIMBERLEEMEJIA SPRINGER Electrocardiogram DATE OF : 39 PHYSICIAN: CHER COPELAND MD REPORT #: [id number] REPORT IS CONFIDENTIAL AND NOT TO BE RELEASED WITHOUT AUTHORIZATION
== END 2022-05-05 01:51 | disposition left against medical advice (07) ==
LOC: ED 23:16
DX: L29.9 Pruritus, unspecified (principal); R00.1 Bradycardia, unspecified; I48.91 Unspecified atrial fibrillation; I10 Essential (primary) hypertension; E11.9 Type 2 diabetes mellitus without complications; I25.2 Old myocardial infarction; Z86.73 Personal history of transient ischemic attack (TIA), and cerebral infarction without residual deficits; Z87.891 Personal history of nicotine dependence; Z88.0 Allergy status to penicillin; Z88.1 Allergy status to other antibiotic agents; Z91.048 Other nonmedicinal substance allergy status; Z79.01 Long term (current) use of anticoagulants; Z20.822 Contact with and (suspected) exposure to COVID-19; Z53.29 Procedure and treatment not carried out because of patient's decision for other reasons
CPT/HCPCS: 36415; 71045; 80053; 83735; 84484; 85025; 85610; 85730; 93005; 93010; U0003

== ENCOUNTER 2022-05-10 22:03 | Emergency (ER) | payer MEDICARE, OTHER ==
[~2022-05-10] VITALS: Ht 157.5 cm; Wt 63.7 kg
[~2022-05-10 22:03] MED LIST changes: +CALCIUM 600 MG1 EAC7 PO; +MELATONIN3 MG PO; +METOPROLOL SUCC25 MG PO; +ROSUVASTATIN CAL5 MG PO; +SEN-O-TAB8.6 MG PO
[2022-05-11] MEDS ORDERED: LOVENOX80 MG/0.8 SUB-Q (01:06)
== END 2022-05-11 01:30 | disposition home or self-care (01) ==
LOC: ED 22:03
DX: L76.32 Postprocedural hematoma of skin and subcutaneous tissue following other procedure (principal); Y83.8 Other surgical procedures as the cause of abnormal reaction of the patient, or of later complication, without mention of misadventure at the time of the procedure; Z95.810 Presence of automatic (implantable) cardiac defibrillator; I10 Essential (primary) hypertension; J45.909 Unspecified asthma, uncomplicated; E11.9 Type 2 diabetes mellitus without complications; Z87.891 Personal history of nicotine dependence; Z79.899 Other long term (current) drug therapy; Z79.01 Long term (current) use of anticoagulants; Z88.0 Allergy status to penicillin; Z88.1 Allergy status to other antibiotic agents; Z88.8 Allergy status to other drugs, medicaments and biological substances
CPT/HCPCS: 36415; 71250; 80053; 83605; 85025; 85610; J7121

== ENCOUNTER 2024-07-15 11:54 | Emergency (ER) | payer MEDICARE, OTHER ==
[~2024-07-15] VITALS: Ht 157.5 cm; Wt 56.0 kg
[~2024-07-15 11:54] MED LIST changes: +LOVENOX80 MG/0.8 SUB-Q
[2024-07-15] MEDS ORDERED: TORSEMIDE5 MG PO (12:26)
[2024-07-15] MEDS ORDERED: LISINOPRIL5 MG PO (12:26)
[2024-07-15] MEDS ORDERED: CARVEDILOL12.5 MG PO (12:27)
[2024-07-15] MEDS ORDERED: LEVOTHYROXINE25 MCG PO (12:28)
[2024-07-15] MEDS ORDERED: XARELTO15 MG PO (12:28)
[2024-07-15] MEDS ORDERED: AMIODARONE HCL100 MG PO (12:28)
[2024-07-15] MEDS ORDERED: JARDIANCE10 MG PO (12:28)
[2024-07-15 13:14] LABS: BASOPHILS 0.9 % (0-2); HEMATOCRIT 32.2 % (35.0-50.0); HEMOGLOBIN 10.4 g/dL (12.0-18.0); LYMPHOCYTES 18.4 % (24-44); MCH 25.3 (27-36); MCHC 32.2 g/dl (30-36); MCV 78.5 fl (81-99); MONOCYTES 10.6 % (0-12); NEUTROPHILS 67.1 % (39-80); PLATELET COUNT 110 K/uL (140-440); RDW 23.2 (10.5-15.0)
[2024-07-15 13:37] LABS: ALBUMIN 3.1 g/dL (3.4-5.0); ALBUMIN/GLOBULIN RATIO 0.84 (1.1-2.4); ANION GAP 14.2 (7-21); BILIRUBIN, TOTAL 0.4 ng/dL (0.2-1.0); BUN/CREATININE RATIO 16.86 (6.0-28.6); CALCIUM 8.5 mg/dL (8.5-10.1); CREATININE, SERUM 1.72 mg/dL (0.55-1.02); POTASSIUM 5.2 mmol/L (3.5-5.1); PROTEIN, TOTAL 6.8 g/dL (6.4-8.2)
[2024-07-15 14:27] VITALS: BP 101/90
--- NOTE | 2024-07-15 21:16 | EKG ---
[facility] [address] [facility] [place], [place] [address] Signed AV dual-paced rhythm Biventricular pacemaker detected Abnormal ECG When compared with ECG of 04-MAY-2022 23:35, Previous ECG has undetermined rhythm, needs review Confirmed by Josie Mitchell DO ([id number]) on 07/15/2024 9:16:01 PM Electronically Signed By: JOSIE MITCHELL DO 07/15/242115 PATIENT NAME: KIMBERLEE CARABALLO Electrocardiogram DATE OF : 39 PHYSICIAN: JOSIE MITCHELL DO REPORT #: [id number] REPORT IS CONFIDENTIAL AND NOT TO BE RELEASED WITHOUT AUTHORIZATION
== END 2024-07-15 14:29 | disposition home or self-care (01) ==
LOC: ED 11:54
PROVIDERS: Internal Medicine
DX: I11.0 Hypertensive heart disease with heart failure (principal); I50.20 Unspecified systolic (congestive) heart failure; R60.0 Localized edema; J45.909 Unspecified asthma, uncomplicated; E11.9 Type 2 diabetes mellitus without complications; I25.2 Old myocardial infarction; Z87.891 Personal history of nicotine dependence; Z88.0 Allergy status to penicillin; Z88.1 Allergy status to other antibiotic agents; Z88.8 Allergy status to other drugs, medicaments and biological substances; Z79.899 Other long term (current) drug therapy; Z79.890 Hormone replacement therapy
CPT/HCPCS: 36415; 80053; 83880; 84484; 85025; 85060; 85379; 93005; 93010; 99283

== ENCOUNTER 2024-10-13 12:28 | Emergency (ER) | payer MEDICARE, OTHER ==
[~2024-10-13] VITALS: Ht 157.5 cm; Wt 62.9 kg
[~2024-10-13 12:28] MED LIST changes: +AMIODARONE HCL100 MG PO; +CARVEDILOL12.5 MG PO; +JARDIANCE10 MG PO; +LEVOTHYROXINE25 MCG PO; +LISINOPRIL5 MG PO; +TORSEMIDE5 MG PO; +XARELTO15 MG PO
[2024-10-13] MEDS ORDERED: NITROGLYCERIN 0.4 MG SUBL SL PRN (12:45)
[2024-10-13] MEDS ORDERED: ASPIRIN 81 MG CHEW PO ONE (12:45)
[2024-10-13 13:07] LABS: BASOPHILS 0.7 % (0-2); EOSINOPHILS 2.1 % (0-6); HEMATOCRIT 38.1 % (35.0-50.0); HEMOGLOBIN 12.6 g/dL (12.0-18.0); LYMPHOCYTES 13.6 % (24-44); MCHC 33.1 g/dl (30-36); MCV 90.6 fl (81-99); MONOCYTES 7.4 % (0-12); NEUTROPHILS 76.2 % (39-80); PLATELET COUNT 80 K/uL (140-440); RBC 4.21 M/ul (4.3-5.7); RDW 15.3 (10.5-15.0)
[2024-10-13 13:25] LABS: ALBUMIN 2.9 g/dL (3.4-5.0); ALBUMIN/GLOBULIN RATIO 0.81 (1.1-2.4); ANION GAP 13.4 (7-21); BILIRUBIN, TOTAL 0.6 mg/dL (0.2-1.0); BUN/CREATININE RATIO 18.54 (6.0-28.6); CALCIUM 8.3 mg/dL (8.5-10.1); CREATININE, SERUM 1.51 mg/dL (0.55-1.02); MAGNESIUM 2.3 mg/dL (1.8-2.4); POTASSIUM 4.4 mmol/L (3.5-5.1); PROTEIN, TOTAL 6.5 g/dL (6.4-8.2)
[2024-10-13 15:21] VITALS: BP 105/77
--- NOTE | 2024-10-13 20:12 | EKG ---
[facility] [address] [facility] [place] [address] Signed AV dual-paced rhythm Biventricular pacemaker detected Abnormal ECG When compared with ECG of 15-JUL-2024 12:24, No significant change was found Confirmed by Josie Mitchell DO ([id number]) on 10/13/2024 8:12:07 PM Electronically Signed By: JOSIE MITCHELL DO 10/13/242011 PATIENT NAME: KIMBERLEE CARABALLO Electrocardiogram DATE OF : 39 PHYSICIAN: JOSIE MITCHELL DO REPORT #: [id number] REPORT IS CONFIDENTIAL AND NOT TO BE RELEASED WITHOUT AUTHORIZATION
== END 2024-10-13 15:43 | disposition home or self-care (01) ==
LOC: ED 12:28
PROVIDERS: Family Medicine
DX: R07.89 Other chest pain (principal); I10 Essential (primary) hypertension; E11.9 Type 2 diabetes mellitus without complications; I25.2 Old myocardial infarction; K76.0 Fatty (change of) liver, not elsewhere classified; R74.01 Elevation of levels of liver transaminase levels; Z86.73 Personal history of transient ischemic attack (TIA), and cerebral infarction without residual deficits; Z87.891 Personal history of nicotine dependence; Z88.0 Allergy status to penicillin; Z95.5 Presence of coronary angioplasty implant and graft; Z88.1 Allergy status to other antibiotic agents; Z88.8 Allergy status to other drugs, medicaments and biological substances; Z79.899 Other long term (current) drug therapy; Z79.02 Long term (current) use of antithrombotics/antiplatelets; Z79.890 Hormone replacement therapy
CPT/HCPCS: 36415; 71045; 76705; 80053; 83735; 84484; 85025; 93005; 93010; 99285-25; A9270